=== PATIENT | male | born 1955 | race Caucasian/White ===

== ENCOUNTER 2016-10-29 09:07 | Inpatient (IN) | payer MEDICARE, OTHER ==
[~2016-10-29] VITALS: Ht 154.9 cm; Wt 68.2 kg
[~2016-10-29 09:07] MED LIST: FAMO20TA5 PO
[2016-10-29 10:50] VITALS: BP 122/61
[2016-10-29] MEDS ORDERED: CONTRAST GIVEN MC PRN (11:30)
[2016-10-29] MEDS ORDERED: IOHEXOL 240 MG/ML 50ML VIAL. PO ONE (11:30)
[2016-10-29 11:43] LABS: BASO % 1 % (0-3); EOS % 2 % (0-3); HEMATOCRIT 31.8 % (39.0-53.0); HEMOGLOBIN 10.3 g/dL (13.0-17.5); LYMPH # 0.7 x10^3/uL (1.0-4.8); LYMPH % 18 % (24-48); MEAN CORPUSCULAR HEMOGLOBIN 35 pg (25-35); MEAN CORPUSCULAR HGB CONC 32 g/dL (31-37); MEAN CORPUSCULAR VOLUME 107 fL (79-100); MONO % 16 % (0-9); NEUT % 63 % (31-73); PLATELET COUNT 136 x10^3/uL (140-400); RED BLOOD COUNT 2.97 x10^6/uL (4.30-5.70); RED CELL DISTRIBUTION WIDTH 14.1 % (11.5-14.5); WHITE BLOOD COUNT 3.8 x10^3/uL (4.0-11.0)
[2016-10-29 11:52] LABS: INR 1.2 (0.8-1.1); PROTHROMBIN TIME PATIENT 14.3 SEC (11.7-14.0)
[2016-10-29] MEDS: FENTANYL 50MCG/HR PATCH. TD SCH (12:00)
[2016-10-29 12:04] LABS: CALCIUM 8.6 mg/dL (8.5-10.1); CREATININE 5.5 mg/dL (0.7-1.3); GFR 10.7; POTASSIUM 3.8 mmol/L (3.5-5.1)
[2016-10-29 12:10] LABS: ALBUMIN 3.2 g/dL (3.4-5.0); ALBUMIN/GLOBULIN RATIO 1.2 (1.0-1.7); TOTAL BILIRUBIN 0.5 mg/dL (0.2-1.0); TOTAL PROTEIN 5.8 g/dL (6.4-8.2)
--- NOTE | 2016-10-29 12:57 | HP ---
ADMIT DATE: 10/29/2016 HISTORY OF PRESENT ILLNESS: The patient is a 61-year-old male patient, a resident at [facility], who was admitted directly on the account of recurrent bouts of nausea, vomiting, diarrhea, progressive abdominal distention and now constipation. His symptoms started about 4 days ago with recurrent bouts of nausea, vomiting as well as diarrhea. The last bowel movement was yesterday while at hemodialysis and, since yesterday, his abdomen was progressively distended, has abdominal pain, has had no bowel movement. Denied any chills, rigors or fever and, given the fact that he has multiple abdominal surgeries, the possibility of bowel obstruction is entertained. The patient was admitted directly for further evaluation and treatment. PAST MEDICAL HISTORY: Significant for hypertension, end-stage renal disease, spina bifida with paraplegia, seizure disorder, chronic pain syndrome, hyperlipidemia, hypothyroidism, iron deficiency anemia, anxiety and depression. PAST SURGICAL HISTORY: Significant for appendectomy, cholecystectomy, suprapubic catheter insertion, nephrectomy, ureterostomy and ileal conduit, incisional hernia repair. ALLERGIES: HE IS ALLERGIC TO AMOXICILLIN, GABAPENTIN, LYRICA, AND SULFA DRUGS. MEDICATIONS: He is currently on following medications: He is on Abilify 7.5 mg daily, mirtazapine 15 mg at bedtime, Nephro-Dangelo 1 tablet once a day, Nitrostat sublingual 0.4 mg every 5 minutes x 3, Norvasc 5 mg twice a day, omeprazole 20 mg orally, OxyContin extended release 12 mg, he takes 40 mg 3 times a day, PhosLo capsule 667 mg 2 capsules by mouth with meals for the phosphate binder, trazodone 50 mg at bedtime, Tylenol 650 mg every 4 hours, Zoloft 100 mg at bedtime, zolpidem tartrate 10 mg at bedtime for insomnia. He is also on calcium carbonate 1000 mg orally at bedtime and clonazepam 2 mg 1 tablet at bedtime, clonidine 0.1 mg tablet orally one time a day. He is on Cymbalta, for duloxetine, a total of 90 mg once a day, fentanyl 50 mcg per hour topically every 72 hours. He is on levothyroxine 75 mcg once a day, Lidoderm, lidocaine cream applied topically before dialysis, loperamide 2 mg by mouth every 4 hours as needed for diarrhea, MiraLax or polyethylene glycol 17 g twice a day. FAMILY HISTORY: Positive for CVA in his mother. SOCIAL HISTORY: Single, never , has no children. He used to be an ex-smoker, does not smoke, drink alcohol or use recreational drugs. REVIEW OF SYSTEMS: As per history of present illness. PHYSICAL EXAMINATION: GENERAL: On examining him, he looked pale, but no jaundice, no lymphadenopathy or thyromegaly. No jugular venous distension. No lower limb edema. VITAL SIGNS: Heart rate is 81, blood pressure was 122/61, temperature was 98.3, respiratory rate was 18 and oxygen saturation was 97% on room air. HEAD, EYES, EARS, NOSE AND THROAT: Showed normocephalic, atraumatic. NECK: Supple. HEART: Showed normal first and second heart sounds with no gallop, rub or murmur. CHEST: Clear to auscultation. No crepitation or rhonchi. ABDOMEN: Markedly distended with tenderness mostly in the left lower quadrant. There is no guarding or rigidity. No organomegaly. All hernial orifices intact. Bowel sounds normal. There are multiple scars of previous surgeries and ureterostomy with ileal conduit that is no longer draining. Bowel sounds are sluggish. NEUROLOGIC: He is awake, alert, responding appropriately. Cranial nerves intact. He moves upper extremities without difficulty, is mostly bed bound, wheelchair bound and has spina bifida cystica with paraplegia. Given the fact that he has multiple surgical operations and has tenderness in the left lower quadrant, possibility of either diverticulitis and/or bowel obstruction is entertained. I will keep the patient n.p.o. for now and will do a stat CT scan of the abdomen and pelvis. Check his lab work and consult appropriate subspecialists depending on the finding on the CT scan. WAYLON CONCEPCION MD DR: ADDIE/joe JOB#: [id number] / [id number]
[2016-10-29 13:00] VITALS: BP 122/61
--- NOTE | 2016-10-29 13:52 | RAD ---
CT of the abdomen and pelvis without contrast, 10/29/2016: History: Nausea, vomiting, abdominal distention No IV contrast was administered for this study as requested. Oral contrast material was given for GI tract opacification. No previous studies are available at this time for comparison purposes. There are minimal groundglass opacities posteriorly in both lung bases. No pleural fluid is evident. There appears to be a small hiatal hernia. There are surgical clips adjacent to the stomach at the level of the diaphragmatic hiatus. The unopacified liver is unremarkable. The gallbladder is surgically absent. No pancreatic abnormality is detected. There is a 6.7 cm low-density lesion in the medial aspect of the spleen. It demonstrates an internal CT number of 20 Hounsfield units. This is likely a cyst or old hematoma. There are surgical clips in the gallbladder fossa suggesting a previous nephrectomy. The right kidney demonstrates considerable cortical thinning there is a 2 cm cyst arising from the upper pole of the right kidney. There is no evidence of hydronephrosis. Aortoiliac calcific plaquing is present without evidence of aneurysm. No abdominal or pelvic adenopathy is seen. The bladder is collapsed and poorly defined. A structure in the right flank region apparently represents an ileal conduit. It contains fluid of higher than water density. The associated ostomy lies at the upper pelvic level just to the left of midline. The patient's nurse reports that this is nonfunctioning. The proximal small bowel loops are not dilated. There is mild distention of distal small bowel loops with gas and fluid. There are surgical sutures related to the colon in the region of the junction of the transverse colon and hepatic flexure. The colon contains a moderate amount of gas and stool extending down to the level of the rectum. No free fluid or free air is evident in the abdomen or pelvis. There is a small fascial defect in the anterior abdominal wall on the left containing only fat. There is a midline sacral defect posteriorly compatible spina bifida. There is chronic dislocation of both hips. There is a moderate thoracolumbar scoliosis. IMPRESSION: 1. Spinal bifida with chronic bilateral hip dislocations. 2. Moderate distention of the colon with gas and stool in a pattern suggesting an atonic colon. 3. Mild dilatation of distal small bowel loops. 4. Status post left nephrectomy. 5. Severely atrophic, scarred right kidney. 6. Ileal conduit containing high density fluid compatible with the history that it is nonfunctioning. 7. Minimal bibasilar groundglass pulmonary opacities may be due to inflammation or scarring. 8. Cystic splenic lesion compatible with an old hematoma or benign cyst. Abscess is less likely. 9. Small hiatal hernia. PQRS Compliance Statement: One or more of the following individualized dose reduction techniques were utilized for this examination: 1. Automated exposure control 2. Adjustment of the mA and/or kV according to patient size 3. Use of iterative reconstruction technique
[2016-10-29 15:00] VITALS: BP 105/68
[2016-10-29] MEDS: MORPHINE SULFATE 4 MG/ML DISP.SYRIN. IV PRN ×2 (16:20→20:30)
[2016-10-29 19:49] VITALS: BP 131/80
[2016-10-29] MEDS ORDERED: LEVO75TA5 PO (21:29)
[2016-10-29] MEDS ORDERED: OXYC40TA26 PO (21:29)
[2016-10-29] MEDS ORDERED: CLON2TAB2 PO (21:29)
[2016-10-29] MEDS ORDERED: NITR0.4T SL (21:29)
[2016-10-29] MEDS ORDERED: MIRT15TA3 PO (21:29)
[2016-10-29] MEDS ORDERED: LIDO30CR TP (21:29)
[2016-10-29] MEDS ORDERED: CALC650T6 PO (21:29)
[2016-10-29] MEDS ORDERED: DULO60CA6 PO (21:29)
[2016-10-29] MEDS ORDERED: LOPE2CAP3 PO (21:29)
[2016-10-29] MEDS ORDERED: FENT1PAT17 TP (21:29)
[2016-10-29] MEDS ORDERED: AMLO5TAB4 PO (21:29)
[2016-10-29] MEDS ORDERED: CLON0.1T PO (21:29)
[2016-10-29] MEDS ORDERED: POLY17PO5 PO (21:29)
[2016-10-29] MEDS ORDERED: OMEP20CA9 PO (21:29)
[2016-10-29] MEDS ORDERED: FOLI0.8T3 PO (21:29)
[2016-10-29] MEDS ORDERED: DULO30CA2 PO (21:29)
[2016-10-29] MEDS ORDERED: TRAZ50TA15 PO (21:39)
[2016-10-29] MEDS ORDERED: CALC667T PO (21:39)
[2016-10-29] MEDS ORDERED: ACET325T9 PO (21:39)
[2016-10-29] MEDS ORDERED: ZOLP10TA4 PO (21:39)
[2016-10-29] MEDS ORDERED: METO10TA81 PO (21:39)
[2016-10-29] MEDS ORDERED: SERT100T PO (21:39)
[2016-10-29] MEDS ORDERED: BISA5TAB4 PO (22:40)
[2016-10-29] MEDS ORDERED: ARIP5TAB6 PO (22:40)
[2016-10-29] MEDS: ONDANSETRON PF 4 MG/2 ML VIAL. IV PRN (23:01)
[2016-10-29 23:06] VITALS: BP 119/62
[2016-10-30] VITALS (7 sets, daily range): BP systolic 119–139; BP diastolic 67–87
[2016-10-30] MEDS: MORPHINE SULFATE 4 MG/ML DISP.SYRIN. IV PRN ×5 (00:45→19:40)
[2016-10-30] MEDS ORDERED: PANTOPRAZOLE IV PUSH 40 MG VIAL. IVP ONE (03:00)
[2016-10-30] MEDS ORDERED: IV NORMAL SALINE 1000ML BAG 1,000 ML IV PRN (08:40)
[2016-10-30] MEDS ORDERED: ACETAMINOPHEN 500 MG TABLET PO PRN (08:45)
[2016-10-30] MEDS ORDERED: ALBUMIN HUMAN 25% 200 ML IV PRN (08:45)
[2016-10-30] MEDS ORDERED: DIALYSIS PATIENT. MC PRN (08:45)
[2016-10-30] MEDS ORDERED: DIPHENHYDRAMINE 50 MG/ML VIAL IV PRN ×2 (08:45)
[2016-10-30] MEDS ORDERED: BISACODYL 10 MG SUPP.RECT PR PRN (13:45)
[2016-10-30] MEDS ORDERED: METHYLNALTREXONE 12 MG/0.6 ML VIAL. SQ ONE ×2 (14:30→17:15)
--- NOTE | 2016-10-30 15:59 | PDOC4 ---
PROCEDURE Procedure RENAL DIALYSIS / EDUARDO HD done. F180 / HCO3 / K per protocol Qb 450 ml/min Qd 600 ml/min UF to dry weight. 3 kg UF attempted. Well tolerated. No complications. CPM. VSS. Labs reviewed. Supportive care. Mario Clark M.D. MARIO CLARK MD Oct 30, 2016 15:59
[2016-10-30] MEDS ORDERED: ONDANSETRON ODT 4 MG TAB.RAPDIS PO PRN (16:00)
[2016-10-30] MEDS ORDERED: ZOLPIDEM 5 MG TABLET. PO PRN (16:45)
[2016-10-30] MEDS: OXYCODONE IR 5 MG TABLET. PO PRN (19:40)
[2016-10-30] MEDS: ZOLPIDEM 5 MG TABLET. PO SCH (20:48)
[2016-10-30] MEDS: traZODone 50 MG TABLET. PO SCH (20:48)
--- NOTE | 2016-10-30 23:03 | PDOC2 ---
CONSULT Date of Consult Date of Consult DATE: 10/30/16 TIME: 23:03 Current Problem List Problem List Problems Medical Problems: (1) Ascites Status: Acute (2) ESRD (end stage renal disease) on dialysis Status: Acute Current Medications Current Medications Current Medications Morphine Sulfate 4 mg PRN Q4HRS PRN IV PAIN Last administered on 10/30/16 19: 40; Start 10/29/16 at 11:15 Fentanyl (Duragesic 50mcg/ Hr Patch) 1 patch Q3DAYS TD ; Start 10/29/16 at 12:00 Ondansetron HCl (Zofran) 4 mg PRN Q4HRS PRN IV NAUSEA/VOMITING Last administered on 10/29/16 23:01; Start 10/29/16 at 11:15 Iohexol (Omnipaque 240 Mg/ml) 40 ml 1X ONCE PO Last administered on 10/29/16 11:30; Start 10/29/16 at 11:30; Stop 10/29/16 at 11:31; Status DC Info (Do NOT chart on this entry -- for MONITORING) 1 each PRN DAILY PRN MC SEE COMMENTS; Start 10/29/16 at 11:30; Stop 10/31/16 at 11:29 Pantoprazole Sodium (Protonix Vial) 40 mg DAILYAC IVP ; Start 10/31/16 at 07:30 Pantoprazole Sodium 40 mg 40 mg 1X ONCE IVP Last administered on 10/30/16 03: 02; Start 10/30/16 at 03:00; Stop 10/30/16 at 03:01; Status DC Sodium Chloride 1,000 ml @ 1,000 mls/hr Q1H PRN IV hypotension; Start 10/30/16 at 08:40; Stop 10/30/16 at 14:39; Status DC Albumin Human (Albuminar) 200 ml @ 200 mls/hr 1X PRN PRN IV Hypotension; Start 10/30/16 at 08:45; Stop 10/30/16 at 14:44; Status DC Acetaminophen (Tylenol) 500 mg 1X PRN PRN PO MILD PAIN / TEMP Last administered on 10/30/16 09:59; Start 10/30/16 at 08:45; Stop 10/30/16 at 19:00 ; Status DC Diphenhydramine HCl (Benadryl) 25 mg 1X PRN PRN IV ITCHING; Start 10/30/16 at 08:45; Stop 10/30/16 at 19:00; Status DC Diphenhydramine HCl (Benadryl) 25 mg 1X PRN PRN IV ITCHING; Start 10/30/16 at 08:45; Stop 10/30/16 at 19:00; Status DC Info (PHARMACY MONITORING -- do not chart) 1 each PRN DAILY PRN MC SEE COMMENTS ; Start 10/30/16 at 08:45 Bisacodyl (Dulcolax Supp) 10 mg PRN DAILY PRN MI CONSTIPATION; Start 10/30/16 at 13:45 Methylnaltrexone Pandora (Relistor) 12 mg 1X ONCE SQ Last administered on 10/30 14:21; Start 10/30/16 at 14:30; Stop 10/30/16 at 14:31; Status DC Ondansetron HCl (Zofran Odt) 4 mg PRN Q4HRS PRN PO NAUSEA/VOMITING; Start 10/30 at 16:00 Oxycodone HCl (Roxicodone) 5 mg PRN Q4HRS PRN PO PAIN Last administered on 10/30 19:40; Start 10/30/16 at 16:00 Trazodone HCl (Desyrel) 50 mg QHS PO Last administered on 10/30/16 20:48; Start 10/30/16 at 21:00 Zolpidem Tartrate (Ambien) 5 mg QHS PO Last administered on 10/30/16 20:48; Start 10/30/16 at 21:00 Zolpidem Tartrate (Ambien) 5 mg PRN QHS PRN PO REPEAT DOSE FOR CONT INSOMNIA; Start 10/30/16 at 16:45 Methylnaltrexone Pandora (Relistor) 12 mg 1X ONCE SQ ; Start 10/30/16 at 17:15 ; Stop 10/30/16 at 17:15; Status DC Active Scripts Active Famotidine 20 Mg Tablet 20 Mg PO BID 14 Days Reported Bisacodyl 5 Mg Tablet.dr 5 Mg PO Q12HR PRN Abilify (Aripiprazole) 5 Mg Tablet 7.5 Mg PO DAILY Zolpidem Tartrate 10 Mg Tablet 1 Tab PO QHS Zoloft (Sertraline Hcl) 100 Mg Tablet 2 Tab PO DAILY Tylenol (Acetaminophen) 325 Mg Tablet 650 Mg PO Q6HRS Trazodone Hcl 50 Mg Tablet 1 Tab PO QHS Reglan (Metoclopramide Hcl) 10 Mg Tablet 5 Mg PO TID Calcium Acetate 667 Mg Tablet 667 Mg PO TIDWMEALS Oxycodone HCl ER (Oxycodone HCl) 40 Mg Tab.er.12h 40 Mg PO TID Omeprazole 20 Mg Capsule.dr 1 Cap PO DAILY Norvasc (Amlodipine Besylate) 5 Mg Tablet 1 Tab PO BID Nitrostat (Nitroglycerin) 0.4 Mg Tab.subl 0.4 Mg SL PRN Q10MIN PRN Nephro-Dangelo Tablet (Folic Acid/Vitamin B Comp W-C) 0.8 Mg Tablet 1 Tab PO DAILY Mirtazapine 15 Mg Tablet 1 Tab PO QHS Miralax (Polyethylene Glycol 3350) 17 Gm Powd.pack 1 Packet PO BID Anti-Diarrheal (Loperamide Hcl) 2 Mg Capsule 2 Mg PO Q4HRS Lidocaine-Prilocaine Cream (Lidocaine/Prilocaine) 30 Gm Cream..g. 1 Adrienne TP UD Levothyroxine Sodium 75 Mcg Tablet 1 Tab PO DAILY FENTANYL 50mcg/hr (Fentanyl) 1 Each Patch.td72 1 Patch TP Q3DAYS Cymbalta (Duloxetine Hcl) 60 Mg Capsule.dr 60 Mg PO DAILY Cymbalta (Duloxetine Hcl) 30 Mg Capsule.dr 1 Cap PO DAILY Clonidine Hcl 0.1 Mg Tablet 0.1 Mg PO DAILY Clonazepam 2 Mg Tablet 1 Tab PO QHS Calcium Carbonate 650 Mg Tablet 1,000 Mg PO QHS Allergies Allergies: Coded Allergies: Sulfa (Sulfonamide Antibiotics) (Verified Allergy, Intermediate, 03/08/16) amoxicillin (Verified Allergy, Intermediate, 03/08/16) gabapentin (Verified Allergy, Intermediate, 03/08/16) pregabalin (Verified Allergy, Intermediate, 03/08/16) Vitals VITALS Vital Signs Date Time Temp Pulse Resp B/P Pulse Ox O2 Delivery O2 Flow Rate FiO2 10/30/16 20:40 98 Room Air 10/30/16 19:49 98.4 80 20 139/84 98.4 Labs Labs Laboratory Tests Test 10/29/16 11:13 10/29/16 11:20 10/29/16 14:00 Glucose (Fingerstick) 84mg/dL (70-99) White Blood Count 3.8x10^3/uL (4.0-11.0) Red Blood Count 2.97x10^6/uL (4.30-5.70) Hemoglobin 10.3g/dL (13.0-17.5) Hematocrit 31.8% (39.0-53.0) Mean Corpuscular Volume 107fL (79-100) Mean Corpuscular Hemoglobin 35pg (25-35) Mean Corpuscular Hemoglobin Concent 32g/dL (31-37) Red Cell Distribution Width 14.1% (11.5-14.5) Platelet Count 136x10^3/uL (140-400) Neutrophils (%) (Auto) 63% (31-73) Lymphocytes (%) (Auto) 18% (24-48) Monocytes (%) (Auto) 16% (0-9) Eosinophils (%) (Auto) 2% (0-3) Basophils (%) (Auto) 1% (0-3) Neutrophils # (Auto) 2.4x10^3uL (1.8-7.7) Lymphocytes # (Auto) 0.7x10^3/uL (1.0-4.8) Monocytes # (Auto) 0.6x10^3/uL (0.0-1.1) Eosinophils # (Auto) 0.1x10^3/uL (0.0-0.7) Basophils # (Auto) 0.0x10^3/uL (0.0-0.2) Prothrombin Time 14.3SEC (11.7-14.0) Prothromb Time International Ratio 1.2 (0.8-1.1) Activated Partial Thromboplast Time 46SEC (24-38) Sodium Level 145mmol/L (136-145) Potassium Level 3.8mmol/L (3.5-5.1) Chloride Level 106mmol/L (98-107) Carbon Dioxide Level 26mmol/L (21-32) Anion Gap 13 (6-14) Blood Urea Nitrogen 36mg/dL (8-26) Creatinine 5.5mg/dL (0.7-1.3) Estimated GFR (Cockcroft-Gault) 10.7 BUN/Creatinine Ratio 7 (6-20) Glucose Level 90mg/dL (70-99) Calcium Level 8.6mg/dL (8.5-10.1) Total Bilirubin 0.5mg/dL (0.2-1.0) Aspartate Amino Transf (AST/SGOT) 8U/L (15-37) Alanine Aminotransferase (ALT/SGPT) 14U/L (16-63) Alkaline Phosphatase 59U/L (46-116) Total Protein 5.8g/dL (6.4-8.2) Albumin 3.2g/dL (3.4-5.0) Albumin/Globulin Ratio 1.2 (1.0-1.7) Nasal Screen MRSA (PCR) Negative (Negative) Assessment/Plan Assessment/Plan RENAL CONSULT/ EDUARDO Ruelas. Thank you. MARIO CLARK MD Oct 30, 2016 23:03
--- NOTE | 2016-10-31 01:03 | PN ---
DATE: 10/30/2016 SUBJECTIVE: Mr. Del Cid is resting, slightly propped up in bed and in no apparent distress, continued to have marked abdominal distention, but denied any nausea, vomiting, or diarrhea. A CT scan yesterday showed that he has a moderate distention of the colon with gas and stool suggestive atonic colon, also mild dilatation of the distal small bowel loops, has multiple other findings including spina bifida with chronic bilateral hip dislocation, status post left nephrectomy, severe atrophic scar, right kidney. He has a ileal conduit that is nonfunctioning. The patient is on huge amount of pain medication. He is on a fentanyl patch 50 mcg per hour topically q. 72 hours. He is on oxycodone extended release 40 mg 3 times a day and I am sure that this is probably induced constipation versus adynamic ileus. He is now on a clear liquid diet. I did consult the intrusion analyst apparently the consult was never GI team as they were being consulted yesterday. He has had his hemodialysis this morning. PHYSICAL EXAMINATION: GENERAL: When I examined him this afternoon, he looked somewhat pale, jaundiced and with some thyromegaly. No jugular venous distention. No limb edema. VITAL SIGNS: His heart rate was 68, blood pressure was 128/77, temperature was 98.3, respiratory rate was 20, and oxygen saturation was 97% on room air. HEAD, EYES, EARS, NOSE, AND THROAT: Showed head is normocephalic, atraumatic. NECK: Supple. HEART: Showed normal first and second heart sounds with no gallop, rub or murmur. CHEST: Clear to auscultation. No crepitation or rhonchi. ABDOMEN: Definitely markedly distended with some tenderness mostly in the left lower quadrant. There is no guarding or rigidity. No organomegaly. All hernial orifices are intact. Bowel sounds normal. NEUROLOGIC: He is awake, alert, responding appropriately. Cranial nerves intact, moves upper extremities without difficulty, has paraplegia secondary to spina bifida with marked muscle wasting and fixed flexed contraction of both lower extremities. His intake over the last 24 hours was 600, no output. He is completely anuric. LABORATORY DATA: His lab work on admission showed a white cell count of 3800, hemoglobin 10.3, hematocrit 31.8, MCV was 107 and platelet count of 136,000. His chemistry showed a serum sodium 145, potassium 3.8, chloride 106, bicarbonate 26, anion gap of 13, BUN 36, creatinine 5.5, and estimated GFR was 7.7. His glucose was 90, calcium was 8.6. Total bilirubin, AST, ALT, alkaline phosphatase are normal. Total protein was 5.8, albumin 3.2. His prothrombin time was 14.3, INR 1.2, APTT was 46. His nasal screen for MRSA by PCR was negative. ASSESSMENT: So in summary, this is a 61-year-old male patient with spina bifida cystica with paraplegia and neurogenic bladder, for which he has had an ileal conduit and ureterostomy that is nonfunctioning, has end-stage renal failure and hemodialysis on Tuesday, , Tuesday, seizure disorder, hyperlipidemia, hypothyroidism, iron deficiency anemia, anxiety and depression. He has also chronic pain syndrome with multiple narcotics. My plan is to arrange for him to have a PICC line, consult the intrusion analyst, start him on Dulcolax suppository and await the recommendation by the intrusion analyst. WAYLON CONCEPCION MD DR: ADDIE/joe JOB#: [id number] / [id number]
[2016-10-31] MEDS: MORPHINE SULFATE 4 MG/ML DISP.SYRIN. IV PRN ×5 (01:58→21:50)
[2016-10-31 03:59] VITALS: BP 120/70
[2016-10-31 04:45] LABS: HEMATOCRIT 32.7 % (39.0-53.0); HEMOGLOBIN 10.6 g/dL (13.0-17.5); RED BLOOD COUNT 3.05 x10^6/uL (4.30-5.70); RED CELL DISTRIBUTION WIDTH 13.7 % (11.5-14.5); WHITE BLOOD COUNT 3.8 x10^3/uL (4.0-11.0)
[2016-10-31 05:21] LABS: ALBUMIN 3.2 g/dL (3.4-5.0); ALBUMIN/GLOBULIN RATIO 1.2 (1.0-1.7); CALCIUM 8.3 mg/dL (8.5-10.1); CREATININE 4.6 mg/dL (0.7-1.3); GFR 13.1; POTASSIUM 3.5 mmol/L (3.5-5.1); TOTAL BILIRUBIN 0.6 mg/dL (0.2-1.0); TOTAL PROTEIN 5.8 g/dL (6.4-8.2)
[2016-10-31 07:00] VITALS: BP 115/53
[2016-10-31] MEDS: PANTOPRAZOLE IV PUSH 40 MG VIAL. IVP SCH (08:29)
[2016-10-31 10:44] VITALS: BP 127/67
--- NOTE | 2016-10-31 12:18 | PDOC ---
GI PROGRESS NOTES Date Date/Time DATE: 10/31/16 TIME: 12:14 Subjective Subjective Constipation/colonic ileus- consult dictated yesterday given relistor and enema- had several BM- feels better Objective Vitals Vital Signs Date Time Temp Pulse Resp B/P Pulse Ox O2 Delivery O2 Flow Rate FiO2 10/31/16 10:44 98.2 67 18 127/67 96 Room Air 98.2 10/31/16 09:00 Room Air 10/31/16 08:29 Room Air 10/31/16 08:05 Room Air 10/31/16 07:00 97.8 84 18 115/53 96 Room Air 97.8 10/31/16 03:59 98.1 65 18 120/70 100 Room Air 98.1 10/31/16 03:07 18 10/31/16 01:58 20 Room Air 10/30/16 23:50 98.1 63 18 124/72 99 Room Air 98.1 10/30/16 20:40 98 Room Air 10/30/16 20:10 Room Air 10/30/16 20:10 98 10/30/16 19:49 98.4 80 20 139/84 98 Room Air 98.4 10/30/16 19:40 Room Air 10/30/16 19:40 16 Room Air 10/30/16 14:57 97.3 79 20 121/87 97 97.3 10/30/16 12:30 98.3 68 20 128/77 97 Room Air 98.3 Labs Labs Laboratory Tests Test 10/31/16 04:30 White Blood Count 3.8x10^3/uL (4.0-11.0) Red Blood Count 3.05x10^6/uL (4.30-5.70) Hemoglobin 10.6g/dL (13.0-17.5) Hematocrit 32.7% (39.0-53.0) Mean Corpuscular Volume 107fL (79-100) Mean Corpuscular Hemoglobin 35pg (25-35) Mean Corpuscular Hemoglobin Concent 32g/dL (31-37) Red Cell Distribution Width 13.7% (11.5-14.5) Platelet Count 137x10^3/uL (140-400) Sodium Level 144mmol/L (136-145) Potassium Level 3.5mmol/L (3.5-5.1) Chloride Level 104mmol/L (98-107) Carbon Dioxide Level 27mmol/L (21-32) Anion Gap 13 (6-14) Blood Urea Nitrogen 25mg/dL (8-26) Creatinine 4.6mg/dL (0.7-1.3) Estimated GFR (Cockcroft-Gault) 13.1 BUN/Creatinine Ratio 5 (6-20) Glucose Level 77mg/dL (70-99) Calcium Level 8.3mg/dL (8.5-10.1) Total Bilirubin 0.6mg/dL (0.2-1.0) Aspartate Amino Transf (AST/SGOT) 11U/L (15-37) Alanine Aminotransferase (ALT/SGPT) 16U/L (16-63) Alkaline Phosphatase 58U/L (46-116) Total Protein 5.8g/dL (6.4-8.2) Albumin 3.2g/dL (3.4-5.0) Albumin/Globulin Ratio 1.2 (1.0-1.7) Thyroid Stimulating Hormone (TSH) 2.445uIU/mL (0.358-3.74) Physical Exam Physical Exam VSS chest- clear abd- still distended but soft, NON tender normal bowel sounds Assessment Assessment Chronic colonic inertia- in part from narcotics and paraplegia- his acute symptoms of n/v and diarrhea are related- Clinically improved after several bowel movements- I will advance diet recommend Movantik 25 mg PO (or Relistor) if available as output and restart enema program if he does not have BM regularly Problems: ROSENDO YOUNG MD Oct 31, 2016 12:18
[2016-10-31] MEDS: OXYCODONE IR 5 MG TABLET. PO PRN ×2 (12:21→21:49)
[2016-10-31] MEDS: ONDANSETRON PF 4 MG/2 ML VIAL. IV PRN (13:19)
[2016-10-31] MEDS ORDERED: METHYLNALTREXONE 12 MG/0.6 ML VIAL. SQ ONE (13:30)
[2016-10-31 14:48] VITALS: BP 128/65
--- NOTE | 2016-10-31 16:51 | PDOC ---
Provider Note Provider Note RENAL F/U : EDUARDO No new issues VSS Afebilre. Exam stable. Non labored resp RRR Alert to baseline. ESRD HTN w CKD NVD ANEMIA CPM. Mario clark M.D. MARIO CLARK MD Oct 31, 2016 16:51
--- NOTE | 2016-10-31 17:08 | CONS ---
DATE OF CONSULTATION: 10/30/2016 CHIEF COMPLAINT: Nausea, vomiting, diarrhea, long history of constipation and abdominal pain. HISTORY OF PRESENT ILLNESS: This is a 61-year-old gentleman with numerous medical problems. He now is a resident at [facility]. He has end-stage kidney disease on dialysis and has a history, he describes of alternating constipation and diarrhea, but usually does not have significant vomiting, just sometimes nausea. He has been eating reasonably well up until recently, but the last few days, describes nausea, vomiting and diarrhea. He noticed his abdomen was somewhat distended. He has had abdominal pain, although this is not a new process for him. He has had a number, he says over 30 operations on his abdomen. He had some surgery as a child for what sounds like urinary obstruction, had an ostomy placed and then eventually had an ileal conduit. There are a number surgical scars present in his abdomen including those for appendectomy, cholecystectomy, previous suprapubic catheter insertion and hernia repairs. He does not have a history of significant bowel obstruction in the past, but certainly has a chronic history of bowel symptoms. He also has a history of heartburn, nausea that is recurrent and has been evaluated in the past. We do not have those records. He presents now with a CT scan showing retained stool and gas in the colon, numerous surgeries, but no obvious bowel obstruction. PAST MEDICAL HISTORY: Hypertension, end-stage renal disease, spina bifida with paraplegia, previous seizure disorder, chronic pain, hyperlipidemia, hypothyroidism and anemia, anxiety depression. PAST SURGICAL HISTORY: Appendectomy, cholecystectomy, previous nephrectomy, ileal conduit in the past, suprapubic catheter insertion site, ureterostomy and incisional hernia repair were all reported. ALLERGIES: AMOXICILLIN, GABAPENTIN, LYRICA AND SULFA. MEDICATIONS: Numerous. Include fentanyl, Cymbalta, see the list for further details. He takes MiraLax and Dulcolax for his bowels. He used to do enemas, but is not on any quite some time. FAMILY HISTORY: Positive for stroke in his mother. SOCIAL HISTORY: He is an ex-smoker, does not smoke or drink. He is not . REVIEW OF SYSTEMS: He has had abdominal pain, distention, nausea, vomiting, diarrhea this week. No fever or chills. HEENT: No headache. He does have decreased vision and hearing that are chronic. PULMONARY: No cough or hemoptysis. CARDIOVASCULAR: No chest pain. GENITOURINARY: He has no urinary output, he has a suprapubic catheter site and he is on dialysis. SKIN: No rashes or pruritus. PHYSICAL EXAMINATION: GENERAL: He is awake and alert. VITAL SIGNS: Afebrile, blood pressure 119/67, pulse 71, respirations 20. He is anicteric. CHEST: Clear. HEART: Regular rate and rhythm. ABDOMEN: Multiple scars are noted. He has a suprapubic catheter site. He has mild distention and minimal tenderness without rebound, no masses appreciated. RECTAL: Deferred. EXTREMITIES: No cyanosis or clubbing. He has paraplegia from spina bifida. LABORATORY DATA: Hemoglobin is 10.3, white blood cell count is 3800, platelet count 138,000. Electrolytes are normal. BUN 36, creatinine 5.5. Liver function studies are normal. INR 1.2. CT scan of the abdomen and pelvis reveals previous cholecystectomy. There is a cyst in the spleen. There is a nephrectomy. There is atherosclerotic disease. There is a previous ileal conduit site noted, proximal small bowel is normal. There is mild distention of the distal small bowel. There is a large amount of retained stool and gas in the colon. There are some clips noted in the mid descending colon that is not consistent with this patient's history, not sure of the surgery that was related to those clips, but there is no obstruction at that side. ASSESSMENT: 1. Abdominal distention with altered bowel pattern including nausea, vomiting, diarrhea this week. He has a chronic history of constipation and his CAT scans seems to point more towards chronic retained stool and colon. Colon is filled with stool and gas, it does with diarrhea illness. The diarrhea is probably overflow, could be related to an acute illness. He is distended, but not obstructed at this point. He is certainly at risk for obstruction based on his numerous surgeries, but at this point, does not appear to be the case. He is tolerating clear liquid diet, is not vomiting, but has had nausea, vomiting this week as mentioned above. He does have an underlying history of GERD, which may be contributing to some of his nausea chronically. PLAN: 1. We will reinstitute enema therapy today along with Relistor therapy for his chronic constipation. It is likely he would benefit from more aggressive long-term treatment program for his colonic inertia with Movantik or similar product rather than just using Dulcolax and MiraLax alone. I appreciate the opportunity and we will follow with you. ROSENDO YOUNG MD DR: AMANDA/joe JOB#: [id number] / [id number]
[2016-10-31 19:00] VITALS: BP 137/89
[2016-10-31] MEDS: traZODone 50 MG TABLET. PO SCH (21:49)
[2016-10-31] MEDS: ZOLPIDEM 5 MG TABLET. PO SCH (21:49)
[2016-10-31 23:00] VITALS: BP 133/70
--- NOTE | 2016-11-01 00:27 | PN ---
DATE: 10/31/2016 SUBJECTIVE: The patient is resting, slightly propped up in bed, in no apparent distress. He has had no further episodes of nausea, vomiting. He has had multiple loose bowel movements; however, his abdomen is still distended. He was seen by the matchbook assembler who recommended Relistor or Movantik for opioid-induced constipation. PHYSICAL EXAMINATION: GENERAL: When I examined him this afternoon, he looked well and was clearly in no apparent respiratory distress, pale. No jaundice, cyanosis, thyromegaly. No jugular venous distention. No limb edema. VITAL SIGNS: His heart rate was 67, blood pressure 127/67, temperature was 98.2, respiratory rate was 18 and oxygen saturation was 96%. HEAD, EYES, EARS, NOSE AND THROAT: Showed normocephalic, atraumatic. NECK: Supple. HEART: Showed normal first and second sounds. No gallop, rub or murmur. CHEST: Clear to auscultation. No crepitation or rhonchi. ABDOMEN: Continued to be distended, soft, nontender. No guarding or rigidity. No organomegaly. All hernial orifices intact. Bowel sounds normal. NEUROLOGIC: He is hard of hearing and visually impaired. Otherwise, all other cranial nerves are intact. He moves upper extremities without difficulty, has paraplegia secondary to spina bifida cystica. He is mostly bedbound, chair bound, marked muscle wasting and flexion contracture of both lower extremities. He is completely anuric and hemodialysis dependent. His intake was 500, no output was recorded. LABORATORY DATA: As of this morning, his white cell count is 3800, hemoglobin 11, hematocrit 33, MCV 107 and platelet count 137,000. His chemistry showed a serum sodium 144, potassium 3.5, chloride 104, bicarbonate 27, anion gap of 13, BUN 25, creatinine 4.6, estimated GFR was 13 mL per minute. His glucose was 77, calcium was 8.3. Total bilirubin, AST, ALT, alkaline phosphatase were normal. Total protein was 5.8, albumin 3.2. TSH was normal at 2.44. ASSESSMENT: 1. Spina bifida cystica with paraplegia and neurogenic bladder for which he has an ileal conduit ureterostomy that is nonfunctioning. 2. End-stage renal failure on hemodialysis Tuesday, and Tuesday. 3. Seizure disorder. 4. Hyperlipidemia. 5. Hypothyroidism, however, is both clinically and biochemically euthyroid. 6. Iron deficiency anemia. 7. Anxiety and depression. 8. Chronic pain syndrome, on multiple narcotics. 9. 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 PLAN: My plan is to start him on Movantik and decide on further management according to his response. WAYLON CONCEPCION MD DR: ADDIE/joe JOB#: [id number] / [id number]
[2016-11-01 03:00] VITALS: BP 129/70
--- NOTE | 2016-11-01 03:30 | CONS ---
DATE OF CONSULTATION: REASON FOR CONSULTATION: End-stage renal disease, need for dialysis. HISTORY OF PRESENT ILLNESS: The patient is a 61-year-old gentleman. A resident of [facility]. Admitted directly with nausea, vomiting, diarrhea, abdominal pain and distention. Some constipation also reported. Low-grade fever. Not eating well. Just not doing the best. We were requested to follow for ____ dialysis needs. No report of blood in the bowels or urine. No vomiting or blood. No other related complaints. PAST MEDICAL HISTORY: Significant for: 1. Hypertension. 2. ESRD secondary to hypertensive nephrosclerosis. 3. Spina bifida with paraplegia. 4. Seizure disorder. 5. Chronic pain syndrome. 6. Hyperlipidemia and hypothyroidism. 7. Anxiety and depression. 8. Anemia of chronic disease including renal failure. PAST SURGICAL HISTORY: 1. Appendectomy. 2. Cholecystectomy. 3. Suprapubic catheter insertion. 4. Nephrectomy, right-sided. 5. Ureterostomy and ileal conduit. 6. Dialysis access placement. 7. Incisional hernia repair. REVIEW OF SYSTEMS: As best could be obtained as above. ALLERGIES AND MEDICATIONS: Reviewed. FAMILY HISTORY: CVA in the mother, but nobody with reported dialysis. SOCIAL HISTORY: Single, never , no children. Ex-smoker, we do not have any further details about the extent and duration. No alcohol or recreational drugs. PHYSICAL EXAMINATION: GENERAL: Middle-aged gentleman, in no distress. NECK: Supple. LUNGS: Decreased at the bases. No wheezing, nonlabored. CARDIOVASCULAR: Regular rate and rhythm. ABDOMEN: Soft. EXTREMITIES: Decreased muscle mass, trace edema. LABORATORY DATA: Reviewed. IMPRESSION: 1. ESRD. 2. Nausea, vomiting, diarrhea. 3. Hypertension with CKD. 4. Anemia of chronic disease. PLAN: At this stage, we will provide dialysis support. Follow labs. No other changes in treatment plan from my perspective. Thank you very much for the consultation. I appreciate the referral. We will follow. MARIO CLARK MD DR: SEAN/joe JOB#: [id number] / [id number]
[2016-11-01] MEDS: OXYCODONE IR 5 MG TABLET. PO PRN ×3 (05:29→17:04)
[2016-11-01] MEDS: MORPHINE SULFATE 4 MG/ML DISP.SYRIN. IV PRN ×4 (05:29→20:21)
[2016-11-01] MEDS: PANTOPRAZOLE IV PUSH 40 MG VIAL. IVP SCH (05:29)
[2016-11-01 07:00] VITALS: BP 150/85
[2016-11-01] MEDS: FENTANYL 50MCG/HR PATCH. TD SCH (08:13)
[2016-11-01] MEDS: LUBIPROSTONE 8 MCG CAPSULE PO SCH ×2 (08:13→17:04)
[2016-11-01] MEDS: ONDANSETRON PF 4 MG/2 ML VIAL. IV PRN (09:33)
[2016-11-01 10:59] VITALS: BP 146/74
--- NOTE | 2016-11-01 11:43 | PDOC ---
Renal-Progress Notes Subjective Notes Notes NONE History of Present Illness Hx of present illness STABLE Vitals Vitals Vital Signs Date Time Temp Pulse Resp B/P Pulse Ox O2 Delivery O2 Flow Rate FiO2 11/01/16 10:59 97.9 69 18 146/74 95 Room Air 97.9 Weight Weight [ ] I.O. Intake and Output Intake and Output 11/01/16 07:00 Intake Total 1060 ml Output Total 0 ml Balance 1060 ml Intake Oral 1060 ml Output Urine Total 0 ml Review of Systems Constitutional: yes: no symptom reported Physical Exam General Appearance: no apparent distress Skin: warm Respiratory: bilateral CTA Heart: S1S2, no thrills Abdomen: soft, bowel sounds present Extremities: pulses present, atrophy Neurology: alert Assessment Assessment IMP CONSTIPATION ANEMIA ESRD PLAN HD TOMORROW GI EVAL AND TX WILL FOLLOW KELLY CALHOUN MD Nov 01, 2016 11:43
[2016-11-01 12:34] LABS: BASO % 0 % (0-3); EOS % 1 % (0-3); HEMATOCRIT 33.9 % (39.0-53.0); HEMOGLOBIN 11.2 g/dL (13.0-17.5); LYMPH # 0.7 x10^3/uL (1.0-4.8); LYMPH % 11 % (24-48); MEAN CORPUSCULAR HEMOGLOBIN 35 pg (25-35); MEAN CORPUSCULAR HGB CONC 33 g/dL (31-37); MEAN CORPUSCULAR VOLUME 106 fL (79-100); MONO % 8 % (0-9); NEUT % 80 % (31-73); PLATELET COUNT 139 x10^3/uL (140-400); WHITE BLOOD COUNT 6.8 x10^3/uL (4.0-11.0)
--- NOTE | 2016-11-01 12:35 | PDOC2 ---
CONSULT Date of Consult Date of Consult DATE: 11/01/16 TIME: 12:23 Reason for Consult Reason for Consult: sbo Referring Physician Referring Physician: Dr Luo Identification/Chief Complaint Chief Complaint abdominal pain Source Source: Chart review, Patient History of Present Illness Reason for Visit: Admitted for worsening abdominal pain, nausea, vomiting, and diarrhea.. He reports stools have been diarrhea since Tuesday. Does have chronic abdominal pain. Concerned the distention is worsening, although he is eating a full renal tray for lunch. Has had multiple abdominal surgeries related to spina bifda and bladder (ileal conduit), appendectomy, cholecystectomy, hernia repair, suprapubic catheter. Seems to have several chronic medical problems Past Medical History Past Medical History Hypertension, end-stage renal disease, spina bifida with paraplegia, previous seizure disorder, chronic pain, hyperlipidemia,hypothyroidism and anemia, anxiety depression. Past Surgical History Past Surgical History Appendectomy, cholecystectomy, previous nephrectomy,ileal conduit in the past, suprapubic catheter insertion site, ureterostomy and incisional hernia repair Family History Family History: Family History Unknown Social History No ALCOHOL: rare Drugs: Marijuana Lives: Senior Living Current Problem List Problem List Problems Medical Problems: (1) Ascites Status: Acute (2) ESRD (end stage renal disease) on dialysis Status: Acute Current Medications Current Medications Current Medications Morphine Sulfate 4 mg PRN Q4HRS PRN IV PAIN Last administered on 11/01/16 09: 33; Start 10/29/16 at 11:15 Fentanyl (Duragesic 50mcg/ Hr Patch) 1 patch Q3DAYS TD Last administered on 08:13; Start 10/29/16 at 12:00 Ondansetron HCl (Zofran) 4 mg PRN Q4HRS PRN IV NAUSEA/VOMITING Last administered on 11/01/16 09:33; Start 10/29/16 at 11:15 Iohexol (Omnipaque 240 Mg/ml) 40 ml 1X ONCE PO Last administered on 10/29/16 11:30; Start 10/29/16 at 11:30; Stop 10/29/16 at 11:31; Status DC Info (Do NOT chart on this entry -- for MONITORING) 1 each PRN DAILY PRN MC SEE COMMENTS; Start 10/29/16 at 11:30; Stop 10/31/16 at 11:29; Status DC Pantoprazole Sodium (Protonix Vial) 40 mg DAILYAC IVP Last administered on 11/01 05:29; Start 10/31/16 at 07:30 Pantoprazole Sodium 40 mg 40 mg 1X ONCE IVP Last administered on 10/30/16 03: 02; Start 10/30/16 at 03:00; Stop 10/30/16 at 03:01; Status DC Sodium Chloride 1,000 ml @ 1,000 mls/hr Q1H PRN IV hypotension; Start 10/30/16 at 08:40; Stop 10/30/16 at 14:39; Status DC Albumin Human (Albuminar) 200 ml @ 200 mls/hr 1X PRN PRN IV Hypotension; Start 10/30/16 at 08:45; Stop 10/30/16 at 14:44; Status DC Acetaminophen (Tylenol) 500 mg 1X PRN PRN PO MILD PAIN / TEMP Last administered on 10/30/16 09:59; Start 10/30/16 at 08:45; Stop 10/30/16 at 19:00 ; Status DC Diphenhydramine HCl (Benadryl) 25 mg 1X PRN PRN IV ITCHING; Start 10/30/16 at 08:45; Stop 10/30/16 at 19:00; Status DC Diphenhydramine HCl (Benadryl) 25 mg 1X PRN PRN IV ITCHING; Start 10/30/16 at 08:45; Stop 10/30/16 at 19:00; Status DC Info (PHARMACY MONITORING -- do not chart) 1 each PRN DAILY PRN MC SEE COMMENTS ; Start 10/30/16 at 08:45 Bisacodyl (Dulcolax Supp) 10 mg PRN DAILY PRN MO CONSTIPATION; Start 10/30/16 at 13:45 Methylnaltrexone Coward (Relistor) 12 mg 1X ONCE SQ Last administered on 10/30 14:21; Start 10/30/16 at 14:30; Stop 10/30/16 at 14:31; Status DC Ondansetron HCl (Zofran Odt) 4 mg PRN Q4HRS PRN PO NAUSEA/VOMITING; Start 10/30 at 16:00 Oxycodone HCl (Roxicodone) 5 mg PRN Q4HRS PRN PO PAIN Last administered on 11/01 09:32; Start 10/30/16 at 16:00 Trazodone HCl (Desyrel) 50 mg QHS PO Last administered on 10/31/16 21:49; Start 10/30/16 at 21:00 Zolpidem Tartrate (Ambien) 5 mg QHS PO Last administered on 10/31/16 21:49; Start 10/30/16 at 21:00 Zolpidem Tartrate (Ambien) 5 mg PRN QHS PRN PO REPEAT DOSE FOR CONT INSOMNIA; Start 10/30/16 at 16:45 Methylnaltrexone Coward (Relistor) 12 mg 1X ONCE SQ ; Start 10/30/16 at 17:15 ; Stop 10/30/16 at 17:15; Status DC Methylnaltrexone Coward (Relistor) 12 mg 1X ONCE SQ Last administered on 10/31 13:19; Start 10/31/16 at 13:30; Stop 10/31/16 at 13:31; Status DC Lubiprostone (Amitiza) 24 mcg BIDWMEALS PO Last administered on 11/01/16 08:13 ; Start 11/01/16 at 08:00 Active Scripts Active Famotidine 20 Mg Tablet 20 Mg PO BID 14 Days Reported Bisacodyl 5 Mg Tablet.dr 5 Mg PO Q12HR PRN Abilify (Aripiprazole) 5 Mg Tablet 7.5 Mg PO DAILY Zolpidem Tartrate 10 Mg Tablet 1 Tab PO QHS Zoloft (Sertraline Hcl) 100 Mg Tablet 2 Tab PO DAILY Tylenol (Acetaminophen) 325 Mg Tablet 650 Mg PO Q6HRS Trazodone Hcl 50 Mg Tablet 1 Tab PO QHS Reglan (Metoclopramide Hcl) 10 Mg Tablet 5 Mg PO TID Calcium Acetate 667 Mg Tablet 667 Mg PO TIDWMEALS Oxycodone HCl ER (Oxycodone HCl) 40 Mg Tab.er.12h 40 Mg PO TID Omeprazole 20 Mg Capsule.dr 1 Cap PO DAILY Norvasc (Amlodipine Besylate) 5 Mg Tablet 1 Tab PO BID Nitrostat (Nitroglycerin) 0.4 Mg Tab.subl 0.4 Mg SL PRN Q10MIN PRN Nephro-Dangelo Tablet (Folic Acid/Vitamin B Comp W-C) 0.8 Mg Tablet 1 Tab PO DAILY Mirtazapine 15 Mg Tablet 1 Tab PO QHS Miralax (Polyethylene Glycol 3350) 17 Gm Powd.pack 1 Packet PO BID Anti-Diarrheal (Loperamide Hcl) 2 Mg Capsule 2 Mg PO Q4HRS Lidocaine-Prilocaine Cream (Lidocaine/Prilocaine) 30 Gm Cream..g. 1 Adrienne TP UD Levothyroxine Sodium 75 Mcg Tablet 1 Tab PO DAILY FENTANYL 50mcg/hr (Fentanyl) 1 Each Patch.td72 1 Patch TP Q3DAYS Cymbalta (Duloxetine Hcl) 60 Mg Capsule.dr 60 Mg PO DAILY Cymbalta (Duloxetine Hcl) 30 Mg Capsule.dr 1 Cap PO DAILY Clonidine Hcl 0.1 Mg Tablet 0.1 Mg PO DAILY Clonazepam 2 Mg Tablet 1 Tab PO QHS Calcium Carbonate 650 Mg Tablet 1,000 Mg PO QHS Allergies Allergies: Coded Allergies: Sulfa (Sulfonamide Antibiotics) (Verified Allergy, Intermediate, 03/08/16) amoxicillin (Verified Allergy, Intermediate, 03/08/16) gabapentin (Verified Allergy, Intermediate, 03/08/16) pregabalin (Verified Allergy, Intermediate, 03/08/16) ROS General: No: Chills, Other (fevers) PSYCHOLOGICAL ROS: No: Anxiety, Depression Eyes: No Blurry vision, No Double vision Hematological and Lymphatic: No: Bleeding Problems, Blood Clots Respiratory: YES: Shortness of breath, No: Cough Cardiovascular: No Chest Pain, No Palpitations Gastrointestinal: Yes Other (see hpi) Genitourinary: No Dysuria, No Hematuria Musculoskeletal: Yes Muscular Weakness Neurological: No Confusion, No Numbness/Tingling Skin: No Pruritus, No Rash Physical Exam General: Alert, Oriented X3, Cooperative, No acute distress HEENT: PERRLA, Mucous membr. moist/pink Lungs: Clear to auscultation, Normal air movement Heart: Regular rate, Normal S1, Normal S2, No murmurs Abdomen: Soft, Other (distended, tender mid abdomen ) Extremities: No clubbing, No cyanosis Neuro: Normal speech, Sensation intact Psych/Mental Status: Mental status NL, Mood NL Vitals VITALS Vital Signs Date Time Temp Pulse Resp B/P Pulse Ox O2 Delivery O2 Flow Rate FiO2 11/01/16 10:59 97.9 69 18 146/74 95 Room Air 97.9 Labs Labs Laboratory Tests Test 10/31/16 04:30 White Blood Count 3.8x10^3/uL (4.0-11.0) Red Blood Count 3.05x10^6/uL (4.30-5.70) Hemoglobin 10.6g/dL (13.0-17.5) Hematocrit 32.7% (39.0-53.0) Mean Corpuscular Volume 107fL (79-100) Mean Corpuscular Hemoglobin 35pg (25-35) Mean Corpuscular Hemoglobin Concent 32g/dL (31-37) Red Cell Distribution Width 13.7% (11.5-14.5) Platelet Count 137x10^3/uL (140-400) Sodium Level 144mmol/L (136-145) Potassium Level 3.5mmol/L (3.5-5.1) Chloride Level 104mmol/L (98-107) Carbon Dioxide Level 27mmol/L (21-32) Anion Gap 13 (6-14) Blood Urea Nitrogen 25mg/dL (8-26) Creatinine 4.6mg/dL (0.7-1.3) Estimated GFR (Cockcroft-Gault) 13.1 BUN/Creatinine Ratio 5 (6-20) Glucose Level 77mg/dL (70-99) Calcium Level 8.3mg/dL (8.5-10.1) Total Bilirubin 0.6mg/dL (0.2-1.0) Aspartate Amino Transf (AST/SGOT) 11U/L (15-37) Alanine Aminotransferase (ALT/SGPT) 16U/L (16-63) Alkaline Phosphatase 58U/L (46-116) Total Protein 5.8g/dL (6.4-8.2) Albumin 3.2g/dL (3.4-5.0) Albumin/Globulin Ratio 1.2 (1.0-1.7) Thyroid Stimulating Hormone (TSH) 2.445uIU/mL (0.358-3.74) Assessment/Plan Assessment/Plan Multiple medical problems including ESRD, spina bifida, constipation, abdominal distention CT from 10/29 showed no obstruction, findings of atonic colon Gi following had received Relistor CT today for FU will FU on those results KEILY MARTIN STEM ROLLER OPERATOR Nov 01, 2016 12:35
[2016-11-01 12:44] LABS: CALCIUM 8.7 mg/dL (8.5-10.1); CREATININE 7.1 mg/dL (0.7-1.3); POTASSIUM 3.8 mmol/L (3.5-5.1)
[2016-11-01 12:50] LABS: ALBUMIN 3.5 g/dL (3.4-5.0); ALBUMIN/GLOBULIN RATIO 1.1 (1.0-1.7); TOTAL BILIRUBIN 0.5 mg/dL (0.2-1.0); TOTAL PROTEIN 6.6 g/dL (6.4-8.2)
--- NOTE | 2016-11-01 13:13 | PDOC ---
Subjective: Subjective: "I'm not any better" but then admits to many stools. "All over" abd pain. Objective: Objective: Per RN - numerous stools after Relistor. Possible repeat CT today. Vital Signs: Vital Signs Date Time Temp Pulse Resp B/P Pulse Ox O2 Delivery O2 Flow Rate FiO2 11/01/16 12:13 95 Room Air 11/01/16 10:59 97.9 69 18 146/74 97.9 Labs: Laboratory Tests Test 11/01/16 12:15 White Blood Count 6.8x10^3/uL Red Blood Count 3.20x10^6/uL Hemoglobin 11.2g/dL Hematocrit 33.9% Mean Corpuscular Volume 106fL Mean Corpuscular Hemoglobin 35pg Mean Corpuscular Hemoglobin Concent 33g/dL Red Cell Distribution Width 14.0% Platelet Count 139x10^3/uL Neutrophils (%) (Auto) 80% Lymphocytes (%) (Auto) 11% Monocytes (%) (Auto) 8% Eosinophils (%) (Auto) 1% Basophils (%) (Auto) 0% Neutrophils # (Auto) 5.4x10^3uL Lymphocytes # (Auto) 0.7x10^3/uL Monocytes # (Auto) 0.6x10^3/uL Eosinophils # (Auto) 0.1x10^3/uL Basophils # (Auto) 0.0x10^3/uL Sodium Level 143mmol/L Potassium Level 3.8mmol/L Chloride Level 102mmol/L Carbon Dioxide Level 25mmol/L Anion Gap 16 Blood Urea Nitrogen 41mg/dL Creatinine 7.1mg/dL Estimated GFR (Cockcroft-Gault) 8.0 BUN/Creatinine Ratio 6 Glucose Level 89mg/dL Lactic Acid Level 0.9mmol/L Calcium Level 8.7mg/dL Total Bilirubin 0.5mg/dL Aspartate Amino Transf (AST/SGOT) 10U/L Alanine Aminotransferase (ALT/SGPT) 17U/L Alkaline Phosphatase 62U/L Lactate Dehydrogenase 164U/L Total Protein 6.6g/dL Albumin 3.5g/dL Albumin/Globulin Ratio 1.1 Imaging: CT 10/29: IMPRESSION: spinal bifida with chronic bilateral hip dislocations, moderate distention of the colon with gas and stool in a pattern suggesting an atonic colon, mild dilatation of distal small bowel loops, status post left nephrectomy, severely atrophic, scarred right kidney, ileal conduit containing high density fluid compatible with the history that it is nonfunctioning, minimal bibasilar groundglass pulmonary opacities may be due to inflammation or scarring, cystic splenic lesion compatible with an old hematoma or benign cyst, small hiatal hernia. PE: GEN: NAD, empty lunch tray LUNGS: CTAB HEART: RRR ABD: BS+, diffusely tender to light touch NEURO/PSYCH: A & O 3 A/P: Chronic constipation - improved after Relistor -has Doris ordered Abd pain -- Continue custodial therapy for constipation. Possible interval CT today. CLAUDIA FERRARI Nov 01, 2016 13:13
[2016-11-01] MEDS ORDERED: IOHEXOL 300 MG/ML 75 ML VIAL IV ONE (14:00)
[2016-11-01] MEDS ORDERED: IOHEXOL 240 MG/ML 50ML VIAL. PO ONE (14:00)
[2016-11-01 14:51] VITALS: BP 154/90
--- NOTE | 2016-11-01 15:42 | RAD ---
Indication: Abdominal pain and distention, nausea and vomiting. Technique: Axial images and coronal and sagittal reformatted images are provided. Oral contrast and 75 mL of intravenous Omnipaque 300 was administered without complication. Comparison is a noncontrast study from October 29, 2016. One or more of the following individualized dose reduction techniques were utilized for this examination: 1. Automated exposure control 2. Adjustment of the mA and/or kV according to patient size 3. Use of iterative reconstruction technique Findings: There is right basilar atelectasis or scarring. There is no pleural effusion. The heart is not enlarged. Coronary artery calcifications are noted. There may be minimal fatty infiltration of the liver. Gallbladder is absent. Common bile duct is mildly prominent which can be within normal limits post cholecystectomy. Splenic cyst or lymphangioma is noted measuring 7 cm. Pancreas and adrenals are unremarkable. Left kidney is absent. Right kidney is atrophic with simple cyst measuring 2.5 cm. Second possible cyst measures 9 mm. There is atheromatous disease in the abdominal aorta without aneurysm. There is no small bowel obstruction or mural thickening. There is a small hiatal hernia. There are postsurgical changes in the region of the stomach. There is no small bowel obstruction or mural thickening. Patient apparently has an ileal conduit. There is increased stool in the colon. Bladder is absent. There is no pelvic mass. There are degenerative changes in the spine. 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 Impression: 1. No acute abdominal findings. 2. No significant change from 3 days ago.
[2016-11-01 19:00] VITALS: BP 155/91
[2016-11-01] MEDS: traZODone 50 MG TABLET. PO SCH (21:21)
[2016-11-01] MEDS: ZOLPIDEM 5 MG TABLET. PO SCH (21:21)
[2016-11-01 23:00] VITALS: BP 143/85
[2016-11-02] MEDS: OXYCODONE IR 5 MG TABLET. PO PRN ×4 (01:29→23:22)
[2016-11-02 03:00] VITALS: BP 125/91
[2016-11-02] MEDS: MORPHINE SULFATE 4 MG/ML DISP.SYRIN. IV PRN ×3 (03:45→17:58)
[2016-11-02 04:49] LABS: CALCIUM 8.2 mg/dL (8.5-10.1); CREATININE 7.9 mg/dL (0.7-1.3); POTASSIUM 3.8 mmol/L (3.5-5.1)
--- NOTE | 2016-11-02 06:46 | PN ---
DATE: 11/01/2016 SUBJECTIVE: The patient is resting, slightly propped up in bed, continued to complain of abdominal pain mostly in the left lower quadrant. He has also had nausea and vomiting. Yesterday, his diet was advanced to renal diet. He has had multiple loose bowel movements in response to ____ the day before yesterday and yesterday, and they did start him on Amitiza 24 mcg today. PHYSICAL EXAMINATION: GENERAL: When I examined him this morning, he looked well and was clearly in no apparent respiratory distress, pale, no jaundice, cyanosis, or thyromegaly. No jugular venous distension. No limb edema. VITAL SIGNS: His heart rate was 69, blood pressure 146/74, temperature was 97.9, respiratory rate was 18, and oxygen saturation was 95%. HEAD, EYES, EARS, NOSE AND THROAT: Showed normocephalic, atraumatic. NECK: Supple. HEART: Showed normal first and second sounds. No gallop, rub, or murmur. CHEST: Clear to auscultation. No crepitation or rhonchi. ABDOMEN: Distended, soft with tenderness mostly in the left lower quadrant and suprapubic area. Bowel sounds are sluggish. I did a rectal exam which showed that the rectal vault was in fact empty. NEUROLOGIC: He was awake, alert, responding appropriately. Cranial nerves intact. He moves upper extremities without difficulty. RECTAL: He has spina bifida cystica with paraplegia and neurogenic bladder status post ileal conduit that is not functioning. He is completely anuric and hemodialysis dependent. His intake was 1016, no output was recorded. LABORATORY DATA: No lab work was done today. ASSESSMENT: The patient continued to have nausea, vomiting, and abdominal pain. His rectal exam showed empty rectal vault. PLAN: My plan is to repeat some lab work including CBC, CMP, LDH, and lactic acid and also repeat his CT scan of the abdomen and decide on further management accordingly. He was seen already by the surgical instrument mechanic. I am not sure if there are any surgical issues here. He is afebrile. His white cell count is normal. There is no evidence to suggest that he has diverticulitis. WAYLON CONCEPCION MD DR: ADDIE/joe JOB#: [id number] / [id number]
[2016-11-02 07:00] VITALS: BP 130/67
[2016-11-02] MEDS: LUBIPROSTONE 8 MCG CAPSULE PO SCH ×2 (07:35→17:57)
[2016-11-02] MEDS: PANTOPRAZOLE 40 MG TABLET. PO SCH (07:35)
[2016-11-02] MEDS: ONDANSETRON PF 4 MG/2 ML VIAL. IV PRN (08:50)
[2016-11-02 10:50] VITALS: BP 145/92
--- NOTE | 2016-11-02 11:20 | PDOC ---
Subjective: Subjective: Nausea. Vomited after eating twice. Hungry. Still has abd pain. Objective: Objective: Per RN - no more stools, vomited after dinner and after breakfast. Vital Signs: Vital Signs Date Time Temp Pulse Resp B/P Pulse Ox O2 Delivery O2 Flow Rate FiO2 11/02/16 10:50 97.8 106 18 145/92 95 Room Air 97.8 Labs: Laboratory Tests Test 11/01/16 12:15 11/02/16 03:20 White Blood Count 6.8x10^3/uL Red Blood Count 3.20x10^6/uL Hemoglobin 11.2g/dL Hematocrit 33.9% Mean Corpuscular Volume 106fL Mean Corpuscular Hemoglobin 35pg Mean Corpuscular Hemoglobin Concent 33g/dL Red Cell Distribution Width 14.0% Platelet Count 139x10^3/uL Neutrophils (%) (Auto) 80% Lymphocytes (%) (Auto) 11% Monocytes (%) (Auto) 8% Eosinophils (%) (Auto) 1% Basophils (%) (Auto) 0% Neutrophils # (Auto) 5.4x10^3uL Lymphocytes # (Auto) 0.7x10^3/uL Monocytes # (Auto) 0.6x10^3/uL Eosinophils # (Auto) 0.1x10^3/uL Basophils # (Auto) 0.0x10^3/uL Sodium Level 143mmol/L 141mmol/L Potassium Level 3.8mmol/L 3.8mmol/L Chloride Level 102mmol/L 101mmol/L Carbon Dioxide Level 25mmol/L 25mmol/L Anion Gap 16 15 Blood Urea Nitrogen 41mg/dL 49mg/dL Creatinine 7.1mg/dL 7.9mg/dL Estimated GFR (Cockcroft-Gault) 8.0 7.0 BUN/Creatinine Ratio 6 Glucose Level 89mg/dL 74mg/dL Lactic Acid Level 0.9mmol/L Calcium Level 8.7mg/dL 8.2mg/dL Total Bilirubin 0.5mg/dL Aspartate Amino Transf (AST/SGOT) 10U/L Alanine Aminotransferase (ALT/SGPT) 17U/L Alkaline Phosphatase 62U/L Lactate Dehydrogenase 164U/L Total Protein 6.6g/dL Albumin 3.5g/dL Albumin/Globulin Ratio 1.1 Imaging: CT A/P w/ oral and IV contrast Findings: There is right basilar atelectasis or scarring. There is no pleural effusion. The heart is not enlarged. Coronary artery calcifications are noted. There may be minimal fatty infiltration of the liver. Gallbladder is absent. Common bile duct is mildly prominent which can be within normal limits post cholecystectomy. Splenic cyst or lymphangioma is noted measuring 7 cm. Pancreas and adrenals are unremarkable. Left kidney is absent. Right kidney is atrophic with simple cyst measuring 2.5 cm. Second possible cyst measures 9mm. There is atheromatous disease in the abdominal aorta without aneurysm. There is no small bowel obstruction or mural thickening. There is a small hiatal hernia. There are postsurgical changes in the region of the stomach. There is no small bowel obstruction or mural thickening. Patient apparently has an ileal conduit. There is increased stool in the colon. Bladder is absent. There is no pelvic mass. There are degenerative changes in the spine. 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 Impression: 1. No acute abdominal findings. 2. No significant change from 3 days ago. PE: GEN: NAD LUNGS: CTAB HEART: RRR ABD: BS+, epigastric tenderness (says hurts diffusely similar to yesterday) NEURO/PSYCH: A & O 3 A/P: Chronic constipation -multiple stools after Relistor -also on Amitiza Abd pain, n/v, h/o GERD -- Continue therapy for constipation - ?repeat Relistor Continue PPI. Will change to clears for lunch w/ post-prandial vomiting. CLAUDIA FERRARI Nov 02, 2016 11:20
--- NOTE | 2016-11-02 11:30 | PDOC ---
Renal-Progress Notes Subjective Notes Notes NOTHING NEW. STILL HAS SOME N/V AND ABD PAIN History of Present Illness Hx of present illness STABLE Vitals Vitals Vital Signs Date Time Temp Pulse Resp B/P Pulse Ox O2 Delivery O2 Flow Rate FiO2 11/02/16 10:50 97.8 106 18 145/92 95 Room Air 97.8 Weight Weight [ ] I.O. Intake and Output Intake and Output 11/02/16 07:00 Intake Total 1370 ml Output Total 0 ml Balance 1370 ml Intake Oral 1370 ml Output Urine Total 0 ml Labs Labs Laboratory Tests Test 11/01/16 12:15 11/02/16 03:20 White Blood Count 6.8x10^3/uL (4.0-11.0) Red Blood Count 3.20x10^6/uL (4.30-5.70) Hemoglobin 11.2g/dL (13.0-17.5) Hematocrit 33.9% (39.0-53.0) Mean Corpuscular Volume 106fL (79-100) Mean Corpuscular Hemoglobin 35pg (25-35) Mean Corpuscular Hemoglobin Concent 33g/dL (31-37) Red Cell Distribution Width 14.0% (11.5-14.5) Platelet Count 139x10^3/uL (140-400) Neutrophils (%) (Auto) 80% (31-73) Lymphocytes (%) (Auto) 11% (24-48) Monocytes (%) (Auto) 8% (0-9) Eosinophils (%) (Auto) 1% (0-3) Basophils (%) (Auto) 0% (0-3) Neutrophils # (Auto) 5.4x10^3uL (1.8-7.7) Lymphocytes # (Auto) 0.7x10^3/uL (1.0-4.8) Monocytes # (Auto) 0.6x10^3/uL (0.0-1.1) Eosinophils # (Auto) 0.1x10^3/uL (0.0-0.7) Basophils # (Auto) 0.0x10^3/uL (0.0-0.2) Sodium Level 143mmol/L (136-145) 141mmol/L (136-145) Potassium Level 3.8mmol/L (3.5-5.1) 3.8mmol/L (3.5-5.1) Chloride Level 102mmol/L (98-107) 101mmol/L (98-107) Carbon Dioxide Level 25mmol/L (21-32) 25mmol/L (21-32) Anion Gap 16 (6-14) 15 (6-14) Blood Urea Nitrogen 41mg/dL (8-26) 49mg/dL (8-26) Creatinine 7.1mg/dL (0.7-1.3) 7.9mg/dL (0.7-1.3) Estimated GFR (Cockcroft-Gault) 8.0 7.0 BUN/Creatinine Ratio 6 (6-20) Glucose Level 89mg/dL (70-99) 74mg/dL (70-99) Lactic Acid Level 0.9mmol/L (0.4-2.0) Calcium Level 8.7mg/dL (8.5-10.1) 8.2mg/dL (8.5-10.1) Total Bilirubin 0.5mg/dL (0.2-1.0) Aspartate Amino Transf (AST/SGOT) 10U/L (15-37) Alanine Aminotransferase (ALT/SGPT) 17U/L (16-63) Alkaline Phosphatase 62U/L (46-116) Lactate Dehydrogenase 164U/L (85-227) Total Protein 6.6g/dL (6.4-8.2) Albumin 3.5g/dL (3.4-5.0) Albumin/Globulin Ratio 1.1 (1.0-1.7) Review of Systems Constitutional: yes: no symptom reported Physical Exam General Appearance: no apparent distress Skin: warm Respiratory: bilateral CTA Heart: S1S2, no thrills Abdomen: soft, bowel sounds present Extremities: pulses present, atrophy Neurology: alert Assessment Assessment IMP CONSTIPATION ANEMIA ESRD PLAN HD TODAY UF TO [facility] GI EVAL AND TX WILL FOLLOW KELLY CALHOUN MD Nov 02, 2016 11:30
[2016-11-02] MEDS ORDERED: METHYLNALTREXONE 12 MG/0.6 ML VIAL. SQ PRN (12:45)
--- NOTE | 2016-11-02 13:17 | PDOC ---
SURGICAL PROGRESS NOTE Subjective n/v after eating abdominal, chronic about at his baseline Vital Signs Vital Signs Date Time Temp Pulse Resp B/P Pulse Ox O2 Delivery O2 Flow Rate FiO2 11/02/16 12:46 95 Room Air 11/02/16 10:50 97.8 106 18 145/92 97.8 I&O Intake and Output 11/02/16 07:00 Intake Total 1370 ml Output Total 0 ml Balance 1370 ml Intake Oral 1370 ml Output Urine Total 0 ml General: Alert, Oriented X3, Cooperative, No acute distress Abdomen: Soft, Other (mildly distended ) Labs Laboratory Tests Test 11/01/16 12:15 11/02/16 03:20 White Blood Count 6.8x10^3/uL (4.0-11.0) Red Blood Count 3.20x10^6/uL (4.30-5.70) Hemoglobin 11.2g/dL (13.0-17.5) Hematocrit 33.9% (39.0-53.0) Mean Corpuscular Volume 106fL (79-100) Mean Corpuscular Hemoglobin 35pg (25-35) Mean Corpuscular Hemoglobin Concent 33g/dL (31-37) Red Cell Distribution Width 14.0% (11.5-14.5) Platelet Count 139x10^3/uL (140-400) Neutrophils (%) (Auto) 80% (31-73) Lymphocytes (%) (Auto) 11% (24-48) Monocytes (%) (Auto) 8% (0-9) Eosinophils (%) (Auto) 1% (0-3) Basophils (%) (Auto) 0% (0-3) Neutrophils # (Auto) 5.4x10^3uL (1.8-7.7) Lymphocytes # (Auto) 0.7x10^3/uL (1.0-4.8) Monocytes # (Auto) 0.6x10^3/uL (0.0-1.1) Eosinophils # (Auto) 0.1x10^3/uL (0.0-0.7) Basophils # (Auto) 0.0x10^3/uL (0.0-0.2) Sodium Level 143mmol/L (136-145) 141mmol/L (136-145) Potassium Level 3.8mmol/L (3.5-5.1) 3.8mmol/L (3.5-5.1) Chloride Level 102mmol/L (98-107) 101mmol/L (98-107) Carbon Dioxide Level 25mmol/L (21-32) 25mmol/L (21-32) Anion Gap 16 (6-14) 15 (6-14) Blood Urea Nitrogen 41mg/dL (8-26) 49mg/dL (8-26) Creatinine 7.1mg/dL (0.7-1.3) 7.9mg/dL (0.7-1.3) Estimated GFR (Cockcroft-Gault) 8.0 7.0 BUN/Creatinine Ratio 6 (6-20) Glucose Level 89mg/dL (70-99) 74mg/dL (70-99) Lactic Acid Level 0.9mmol/L (0.4-2.0) Calcium Level 8.7mg/dL (8.5-10.1) 8.2mg/dL (8.5-10.1) Total Bilirubin 0.5mg/dL (0.2-1.0) Aspartate Amino Transf (AST/SGOT) 10U/L (15-37) Alanine Aminotransferase (ALT/SGPT) 17U/L (16-63) Alkaline Phosphatase 62U/L (46-116) Lactate Dehydrogenase 164U/L (85-227) Total Protein 6.6g/dL (6.4-8.2) Albumin 3.5g/dL (3.4-5.0) Albumin/Globulin Ratio 1.1 (1.0-1.7) Laboratory Tests Test 11/02/16 03:20 Sodium Level 141mmol/L (136-145) Potassium Level 3.8mmol/L (3.5-5.1) Chloride Level 101mmol/L (98-107) Carbon Dioxide Level 25mmol/L (21-32) Anion Gap 15 (6-14) Blood Urea Nitrogen 49mg/dL (8-26) Creatinine 7.9mg/dL (0.7-1.3) Estimated GFR (Cockcroft-Gault) 7.0 Glucose Level 74mg/dL (70-99) Calcium Level 8.2mg/dL (8.5-10.1) Problem List Problems Medical Problems: (1) Ascites Status: Acute (2) ESRD (end stage renal disease) on dialysis Status: Acute Assessment/Plan constipation no acute findings on CT GI is following no surgical recs available as needed Problems: KEILY MARTIN APRN Nov 02, 2016 13:17
[2016-11-02] MEDS ORDERED: IV NORMAL SALINE 1000ML BAG 1,000 ML IV PRN ×2 (14:43)
[2016-11-02] MEDS ORDERED: DIALYSIS PATIENT. MC PRN (14:45)
[2016-11-02 19:00] VITALS: BP 133/79
[2016-11-02] MEDS: ZOLPIDEM 5 MG TABLET. PO SCH (20:49)
[2016-11-02] MEDS: traZODone 50 MG TABLET. PO SCH (20:49)
[2016-11-02 22:31] VITALS: BP 121/77
--- NOTE | 2016-11-03 00:41 | PN ---
DATE: 11/02/2016 SUBJECTIVE: The patient is resting, slightly propped up in bed, still complaining of abdominal pain, nausea and vomiting. I did a rectal exam yesterday which showed that the rectal vault was empty; however, the CT scan continued to show constipation, but no evidence of any bowel obstruction or diverticulitis. He did respond very well to Relistor. Unfortunately, Movantik is not available here. PHYSICAL EXAMINATION: GENERAL: When I examined him, he looked pale. No jaundice, cyanosis, or thyromegaly. No jugular venous distension. No limb edema. VITAL SIGNS: His heart rate was 106, blood pressure was 145/92, temperature was 97.8, respiratory rate was 18, and oxygen saturation was 95%. HEAD, EYES, EARS, NOSE AND THROAT: Showed normocephalic, atraumatic. NECK: Supple. HEART: Showed normal first and second heart sounds. No gallop, rub, or murmur. CHEST: Clear to auscultation. No crepitation or rhonchi. ABDOMEN: Distended, soft. Tenderness mostly in the left lower quadrant. No guarding, no rigidity, no organomegaly. Hernial orifices intact. Bowel sounds normal. NEUROLOGIC: He is visually impaired. He is also hard of hearing; otherwise all other cranial nerves are intact. He moves upper extremities without difficulty. He has spina bifida cystica with paraplegia. He is mostly bedbound, chair bound. He is completely anuric and hemodialysis dependent. LABORATORY DATA: His white cell count this morning was 6800, hemoglobin was 11, hematocrit 33, MCV 106, and platelet count of 139,000. Serum sodium was 141, potassium 3.8, chloride 101, bicarbonate 25, anion gap of 15, BUN 49, creatinine 7.9, glucose was 74, and calcium was 8.9. ASSESSMENT: 1. Abdominal distention, abdominal pain: Likely secondary to opioid-induced constipation. 2. End-stage renal disease: On hemodialysis. 3. Spina bifida cystica with paraplegia and neurogenic bladder, for which he has ileal conduit that is nonfunctioning. 4. Seizure disorder. 5. Hyperlipidemia. 6. Hypothyroidism. 7. Iron deficiency anemia. 8. Anxiety and depression. 9. Chronic pain syndrome: On multiple narcotics. PLAN: I have discussed the further management with the success coach and I await the recommendation by the success coach. Unfortunately, Movantik is not available here. He did respond well to Relistor before and we might have to end up giving him enemas to clean him up. WAYLON CONCEPCION MD DR: ADDIE/joe JOB#: [id number] / [id number]
[2016-11-03 07:00] VITALS: BP 134/75
[2016-11-03] MEDS: PANTOPRAZOLE 40 MG TABLET. PO SCH (07:23)
[2016-11-03] MEDS: LUBIPROSTONE 8 MCG CAPSULE PO SCH ×2 (08:39→16:30)
[2016-11-03] MEDS: ONDANSETRON PF 4 MG/2 ML VIAL. IV PRN (08:40)
[2016-11-03] MEDS: MORPHINE SULFATE 4 MG/ML DISP.SYRIN. IV PRN ×2 (08:41→14:48)
--- NOTE | 2016-11-03 10:24 | PDOC ---
G I PROGRESS NOTE Subjective Feeling better. Would like real food. Has stooled after Relistor. Physical Exam Lungs clear. RRR Abdomen soft, not distended nor tender. Review of Relevant I have reviewed the following items slim (where applicable) has been applied. Labs Laboratory Tests Test 11/01/16 12:15 11/02/16 03:20 White Blood Count 6.8x10^3/uL (4.0-11.0) Red Blood Count 3.20x10^6/uL (4.30-5.70) Hemoglobin 11.2g/dL (13.0-17.5) Hematocrit 33.9% (39.0-53.0) Mean Corpuscular Volume 106fL (79-100) Mean Corpuscular Hemoglobin 35pg (25-35) Mean Corpuscular Hemoglobin Concent 33g/dL (31-37) Red Cell Distribution Width 14.0% (11.5-14.5) Platelet Count 139x10^3/uL (140-400) Neutrophils (%) (Auto) 80% (31-73) Lymphocytes (%) (Auto) 11% (24-48) Monocytes (%) (Auto) 8% (0-9) Eosinophils (%) (Auto) 1% (0-3) Basophils (%) (Auto) 0% (0-3) Neutrophils # (Auto) 5.4x10^3uL (1.8-7.7) Lymphocytes # (Auto) 0.7x10^3/uL (1.0-4.8) Monocytes # (Auto) 0.6x10^3/uL (0.0-1.1) Eosinophils # (Auto) 0.1x10^3/uL (0.0-0.7) Basophils # (Auto) 0.0x10^3/uL (0.0-0.2) Sodium Level 143mmol/L (136-145) 141mmol/L (136-145) Potassium Level 3.8mmol/L (3.5-5.1) 3.8mmol/L (3.5-5.1) Chloride Level 102mmol/L (98-107) 101mmol/L (98-107) Carbon Dioxide Level 25mmol/L (21-32) 25mmol/L (21-32) Anion Gap 16 (6-14) 15 (6-14) Blood Urea Nitrogen 41mg/dL (8-26) 49mg/dL (8-26) Creatinine 7.1mg/dL (0.7-1.3) 7.9mg/dL (0.7-1.3) Estimated GFR (Cockcroft-Gault) 8.0 7.0 BUN/Creatinine Ratio 6 (6-20) Glucose Level 89mg/dL (70-99) 74mg/dL (70-99) Lactic Acid Level 0.9mmol/L (0.4-2.0) Calcium Level 8.7mg/dL (8.5-10.1) 8.2mg/dL (8.5-10.1) Total Bilirubin 0.5mg/dL (0.2-1.0) Aspartate Amino Transf (AST/SGOT) 10U/L (15-37) Alanine Aminotransferase (ALT/SGPT) 17U/L (16-63) Alkaline Phosphatase 62U/L (46-116) Lactate Dehydrogenase 164U/L (85-227) Total Protein 6.6g/dL (6.4-8.2) Albumin 3.5g/dL (3.4-5.0) Albumin/Globulin Ratio 1.1 (1.0-1.7) Medications Current Medications Morphine Sulfate 4 mg PRN Q4HRS PRN IV PAIN Last administered on 11/03/16 08: 41; Start 10/29/16 at 11:15 Fentanyl (Duragesic 50mcg/ Hr Patch) 1 patch Q3DAYS TD Last administered on 08:13; Start 10/29/16 at 12:00 Ondansetron HCl (Zofran) 4 mg PRN Q4HRS PRN IV NAUSEA/VOMITING Last administered on 11/03/16 08:40; Start 10/29/16 at 11:15 Iohexol (Omnipaque 240 Mg/ml) 40 ml 1X ONCE PO Last administered on 10/29/16 11:30; Start 10/29/16 at 11:30; Stop 10/29/16 at 11:31; Status DC Info (Do NOT chart on this entry -- for MONITORING) 1 each PRN DAILY PRN MC SEE COMMENTS; Start 10/29/16 at 11:30; Stop 10/31/16 at 11:29; Status DC Pantoprazole Sodium (Protonix Vial) 40 mg DAILYAC IVP Last administered on 11/01 05:29; Start 10/31/16 at 07:30; Stop 11/01/16 at 14:25; Status DC Pantoprazole Sodium 40 mg 40 mg 1X ONCE IVP Last administered on 10/30/16 03: 02; Start 10/30/16 at 03:00; Stop 10/30/16 at 03:01; Status DC Sodium Chloride 1,000 ml @ 1,000 mls/hr Q1H PRN IV hypotension; Start 10/30/16 at 08:40; Stop 10/30/16 at 14:39; Status DC Albumin Human (Albuminar) 200 ml @ 200 mls/hr 1X PRN PRN IV Hypotension; Start 10/30/16 at 08:45; Stop 10/30/16 at 14:44; Status DC Acetaminophen (Tylenol) 500 mg 1X PRN PRN PO MILD PAIN / TEMP Last administered on 10/30/16 09:59; Start 10/30/16 at 08:45; Stop 10/30/16 at 19:00 ; Status DC Diphenhydramine HCl (Benadryl) 25 mg 1X PRN PRN IV ITCHING; Start 10/30/16 at 08:45; Stop 10/30/16 at 19:00; Status DC Diphenhydramine HCl (Benadryl) 25 mg 1X PRN PRN IV ITCHING; Start 10/30/16 at 08:45; Stop 10/30/16 at 19:00; Status DC Info (PHARMACY MONITORING -- do not chart) 1 each PRN DAILY PRN MC SEE COMMENTS ; Start 10/30/16 at 08:45 Bisacodyl (Dulcolax Supp) 10 mg PRN DAILY PRN RI CONSTIPATION; Start 10/30/16 at 13:45 Methylnaltrexone [place] (Relistor) 12 mg 1X ONCE SQ Last administered on 10/30 14:21; Start 10/30/16 at 14:30; Stop 10/30/16 at 14:31; Status DC Ondansetron HCl (Zofran Odt) 4 mg PRN Q4HRS PRN PO NAUSEA/VOMITING; Start 10/30 at 16:00 Oxycodone HCl (Roxicodone) 5 mg PRN Q4HRS PRN PO PAIN Last administered on 11/02 23:22; Start 10/30/16 at 16:00 Trazodone HCl (Desyrel) 50 mg QHS PO Last administered on 11/02/16 20:49; Start 10/30/16 at 21:00 Zolpidem Tartrate (Ambien) 5 mg QHS PO Last administered on 11/02/16 20:49; Start 10/30/16 at 21:00 Zolpidem Tartrate (Ambien) 5 mg PRN QHS PRN PO REPEAT DOSE FOR CONT INSOMNIA; Start 10/30/16 at 16:45 Methylnaltrexone [place] (Relistor) 12 mg 1X ONCE SQ ; Start 10/30/16 at 17:15 ; Stop 10/30/16 at 17:15; Status DC Methylnaltrexone [place] (Relistor) 12 mg 1X ONCE SQ Last administered on 10/31 13:19; Start 10/31/16 at 13:30; Stop 10/31/16 at 13:31; Status DC Lubiprostone (Amitiza) 24 mcg BIDWMEALS PO Last administered on 11/03/16 08:39 ; Start 11/01/16 at 08:00 Iohexol (Omnipaque 240 Mg/ml) 50 ml 1X ONCE PO Last administered on 11/01/16 14:00; Start 11/01/16 at 14:00; Stop 11/01/16 at 14:01; Status DC Iohexol (Omnipaque 300 Mg/ml) 75 ml 1X ONCE IV Last administered on 11/01/16 14:58; Start 11/01/16 at 14:00; Stop 11/01/16 at 14:01; Status DC Pantoprazole Sodium (Protonix) 40 mg DAILYAC PO Last administered on 11/03/16 07:23; Start 11/02/16 at 07:30 Methylnaltrexone [place] 12 mg 12 mg PRN Q48HR PRN SQ no stool Last administered on 11/02/16 20:11; Start 11/02/16 at 12:45 Sodium Chloride 1,000 ml @ 1,000 mls/hr Q1H PRN IV hypotension; Start 11/02/16 at 14:43; Stop 11/02/16 at 20:42; Status DC Sodium Chloride (Iv Sodium Chloride 0.9% 1000ml Bag) 1,000 ml @ 400 mls/hr Q2H30M PRN IV PATENCY; Start 11/02/16 at 14:43; Stop 11/03/16 at 02:42; Status DC Info (PHARMACY MONITORING -- do not chart) 1 each PRN DAILY PRN MC SEE COMMENTS ; Start 11/02/16 at 14:45; Status UNV Active Scripts Active Famotidine 20 Mg Tablet 20 Mg PO BID 14 Days Reported Bisacodyl 5 Mg Tablet. 5 Mg PO Q12HR PRN Abilify (Aripiprazole) 5 Mg Tablet 7.5 Mg PO DAILY Zolpidem Tartrate 10 Mg Tablet 1 Tab PO QHS Zoloft (Sertraline Hcl) 100 Mg Tablet 2 Tab PO DAILY Tylenol (Acetaminophen) 325 Mg Tablet 650 Mg PO Q6HRS Trazodone Hcl 50 Mg Tablet 1 Tab PO QHS Reglan (Metoclopramide Hcl) 10 Mg Tablet 5 Mg PO TID Calcium Acetate 667 Mg Tablet 667 Mg PO TIDWMEALS Oxycodone HCl ER (Oxycodone HCl) 40 Mg Tab.er.12h 40 Mg PO TID Omeprazole 20 Mg Capsule. 1 Cap PO DAILY Norvasc (Amlodipine Besylate) 5 Mg Tablet 1 Tab PO BID Nitrostat (Nitroglycerin) 0.4 Mg Tab.subl 0.4 Mg SL PRN Q10MIN PRN Nephro-Dangelo Tablet (Folic Acid/Vitamin B Comp W-C) 0.8 Mg Tablet 1 Tab PO DAILY Mirtazapine 15 Mg Tablet 1 Tab PO QHS Miralax (Polyethylene Glycol 3350) 17 Gm Powd.pack 1 Packet PO BID Anti-Diarrheal (Loperamide Hcl) 2 Mg Capsule 2 Mg PO Q4HRS Lidocaine-Prilocaine Cream (Lidocaine/Prilocaine) 30 Gm Cream..g. 1 Adrienne TP UD Levothyroxine Sodium 75 Mcg Tablet 1 Tab PO DAILY FENTANYL 50mcg/hr (Fentanyl) 1 Each Patch.td72 1 Patch TP Q3DAYS Cymbalta (Duloxetine Hcl) 60 Mg Capsule. 60 Mg PO DAILY Cymbalta (Duloxetine Hcl) 30 Mg Capsule.dr 1 Cap PO DAILY Clonidine Hcl 0.1 Mg Tablet 0.1 Mg PO DAILY Clonazepam 2 Mg Tablet 1 Tab PO QHS Calcium Carbonate 650 Mg Tablet 1,000 Mg PO QHS Vitals/I & O Vital Sign - Last 24 Hours 11/02/16 11/02/16 11/02/16 11/02/16 10:50 12:46 12:46 13:46 Temp 97.8 97.8 Pulse 106 Resp 18 B/P 145/92 Pulse Ox 95 95 95 95 O2 Delivery Room Air Room Air Room Air Room Air 11/02/16 11/02/16 11/02/16 11/02/16 18:34 19:00 20:00 22:31 Temp 98.9 99.4 98.9 99.4 Pulse 74 88 Resp 18 18 B/P 133/79 121/77 Pulse Ox 95 97 94 O2 Delivery Room Air Room Air Room Air Room Air 11/02/16 11/03/16 11/03/16 11/03/16 23:22 00:30 07:00 08:00 Temp 98.7 98.7 Pulse 68 Resp 20 20 20 B/P 134/75 Pulse Ox 93 96 O2 Delivery Room Air Room Air Intake and Output 11/02/16 11/02/16 11/03/16 15:00 23:00 07:00 Intake Total 360 ml 240 ml 700 ml Output Total 0 ml Balance 360 ml 240 ml 700 ml Problem List Problems Medical Problems: (1) Ascites Status: Acute (2) ESRD (end stage renal disease) on dialysis Status: Acute Assessment Colonic inertia, partly from narcs given response to Relistor. Plan of Care: Continue current Tx, Mgmt Plan of Care Note May need regular use of either Movantik or oral Relistor once home. If no emesis today, advance diet. AIXA POOLE MD Nov 03, 2016 10:24
[2016-11-03 10:45] VITALS: BP 140/82
--- NOTE | 2016-11-03 11:13 | PDOC ---
Renal-Progress Notes Subjective Notes Notes SAME History of Present Illness Hx of present illness NO CHANGE Vitals Vitals Vital Signs Date Time Temp Pulse Resp B/P Pulse Ox O2 Delivery O2 Flow Rate FiO2 11/03/16 10:45 97.6 63 20 140/82 98 Room Air 97.6 Weight Weight [ ] I.O. Intake and Output Intake and Output 11/03/16 07:00 Intake Total 1300 ml Output Total 0 ml Balance 1300 ml Intake Oral 1300 ml Output Urine Total 0 ml # Bowel Movements 2 Review of Systems Constitutional: yes: no symptom reported Physical Exam General Appearance: no apparent distress Skin: warm Respiratory: bilateral CTA Heart: S1S2, no thrills Abdomen: soft, bowel sounds present Extremities: pulses present, atrophy Neurology: alert Assessment Assessment IMP CONSTIPATION/OBSTIPATION ANEMIA ESRD PLAN HD TOMORROW GI EVAL AND TX WILL FOLLOW KELLY CALHOUN MD Nov 03, 2016 11:13
[2016-11-03] MEDS: OXYCODONE IR 5 MG TABLET. PO PRN ×2 (12:17→16:30)
[2016-11-03] MEDS ORDERED: METHYLNALTREXONE 12 MG/0.6 ML VIAL. SQ ONE (13:00)
[2016-11-03 14:40] VITALS: BP 138/78
[2016-11-03 19:00] VITALS: BP 131/82
[2016-11-03] MEDS: traZODone 50 MG TABLET. PO SCH (21:07)
[2016-11-03] MEDS: ZOLPIDEM 5 MG TABLET. PO SCH (21:07)
[2016-11-03 22:40] VITALS: BP 145/78
--- NOTE | 2016-11-04 01:56 | PN ---
DATE: 11/03/2016 SUBJECTIVE: The patient is resting, slightly propped up in bed, in no apparent distress. His abdomen is less distended than before. He has had a bowel movement yesterday, mostly loose bowel movement. He did have some nausea this morning and he is now on liquid diet. Unfortunately, the oral Relistor and/or the Movantik is not available in the hospital. I will give him 1 more ____ today and hopefully by tomorrow, we can discharge him back to [facility] in [place] and hopefully reauthorize the Movantik and/or the oral Relistor. PHYSICAL EXAMINATION: GENERAL: When I examined him this afternoon, he looked well and was clearly in no apparent respiratory distress, pale, but no jaundice, cyanosis or thyromegaly. No jugular venous distention. No limb edema. VITAL SIGNS: Heart rate is 63, blood pressure was 140/82, temperature was 97.6, respiratory rate was 20, and oxygen saturation was 98%. HEAD, EYES, EARS, NOSE AND THROAT: Showed normocephalic, atraumatic. NECK: Supple. HEART: Showed normal first and second heart sounds. No gallop, rub or murmur. CHEST: Clear to auscultation. No crepitation or rhonchi. ABDOMEN: Distended, but much better, less than before, soft, some tenderness mostly in the left lower quadrant. There is no guarding or rigidity. No organomegaly. Hernial orifices intact. Bowel sounds normal. NEUROLOGIC: He is hard of hearing, otherwise all cranial nerves intact. He moves upper extremities without difficulty, has spina bifida cystica with paraplegia. He is completely anuric and hemodialysis dependent. His intake was 1300, no output was recorded. LABORATORY DATA: No lab work was done this morning. ASSESSMENT: 1. Adynamic colonic ileus due to narcotics. 2. End-stage renal disease, on hemodialysis on Tuesday, Tuesday, Tuesday. 3. Spina bifida cystica with paraplegia and neurogenic bladder for which he has ileal conduit that is nonfunctioning. 4. Seizure disorder. 5. Hyperlipidemia. 6. Hypothyroidism. 7. Iron deficiency anemia. 8. Anxiety and depression. 9. Chronic pain syndrome on multiple narcotics. PLAN: My plan is to give him one more Relistor today and hopefully has more bowel movement and will discharge him back to [facility] tomorrow. WAYLON CONCEPCION MD DR: ADDIE/joe JOB#: [id number] / [id number]
[2016-11-04] MEDS: OXYCODONE IR 5 MG TABLET. PO PRN (02:14)
[2016-11-04 07:00] VITALS: BP 139/83
[2016-11-04] MEDS: PANTOPRAZOLE 40 MG TABLET. PO SCH (08:13)
[2016-11-04] MEDS: FENTANYL 50MCG/HR PATCH. TD SCH (08:13)
[2016-11-04] MEDS: LUBIPROSTONE 8 MCG CAPSULE PO SCH ×2 (08:13→17:11)
[2016-11-04 08:14] LABS: CREATININE 7.6 mg/dL (0.7-1.3); GFR 7.4; POTASSIUM 4.5 mmol/L (3.5-5.1)
[2016-11-04] MEDS ORDERED: IV NORMAL SALINE 1000ML BAG 1,000 ML IV PRN (09:00)
[2016-11-04] MEDS ORDERED: DIALYSIS PATIENT. MC PRN ×2 (09:15)
[2016-11-04] MEDS: ONDANSETRON PF 4 MG/2 ML VIAL. IV PRN (09:20)
[2016-11-04 11:00] VITALS: BP 114/57
--- NOTE | 2016-11-04 12:06 | PDOC ---
Renal-Progress Notes Subjective Notes Notes SAME History of Present Illness Hx of present illness STABLE Vitals Vitals Vital Signs Date Time Temp Pulse Resp B/P Pulse Ox O2 Delivery O2 Flow Rate FiO2 11/04/16 11:00 98.2 73 114/57 98.2 11/04/16 08:13 Room Air 11/04/16 07:00 20 96 Weight Weight [ ] I.O. Intake and Output Intake and Output 11/04/16 07:00 Intake Total 1080 ml Balance 1080 ml Intake Oral 1080 ml # Bowel Movements 2 Labs Labs Laboratory Tests Test 11/04/16 07:46 Sodium Level 142mmol/L (136-145) Potassium Level 4.5mmol/L (3.5-5.1) Chloride Level 100mmol/L (98-107) Carbon Dioxide Level 27mmol/L (21-32) Anion Gap 15 (6-14) Blood Urea Nitrogen 47mg/dL (8-26) Creatinine 7.6mg/dL (0.7-1.3) Estimated GFR (Cockcroft-Gault) 7.4 Glucose Level 86mg/dL (70-99) Calcium Level 8.0mg/dL (8.5-10.1) Review of Systems Constitutional: yes: no symptom reported Physical Exam General Appearance: no apparent distress Skin: warm Respiratory: bilateral CTA Heart: S1S2, no thrills Abdomen: soft, bowel sounds present Extremities: pulses present, atrophy Neurology: alert Assessment Assessment IMP CONSTIPATION/OBSTIPATION ANEMIA ESRD PLAN HD TODAY UF TO [facility] RELISTOR WILL FOLLOW KELLY CALHOUN MD Nov 04, 2016 12:06
[2016-11-04] MEDS ORDERED: MINERAL OIL 133 ML ENEMA. PR ONE (14:00)
--- NOTE | 2016-11-04 14:12 | PDOC ---
G I PROGRESS NOTE Subjective Complains of nausea and vomiting immediately pc. So far has kept lunch down. Stools charted daily; only "small" per him. Cramps after Relistor yesterday and is refusing more. Physical Exam Lungs clear. RRR Abdomen protuberant, not really firm. Subjective diffuse tenderness. Has bowel sounds not too abnormal. Review of Relevant I have reviewed the following items slim (where applicable) has been applied. Labs Laboratory Tests Test 11/04/16 07:46 Sodium Level 142mmol/L (136-145) Potassium Level 4.5mmol/L (3.5-5.1) Chloride Level 100mmol/L (98-107) Carbon Dioxide Level 27mmol/L (21-32) Anion Gap 15 (6-14) Blood Urea Nitrogen 47mg/dL (8-26) Creatinine 7.6mg/dL (0.7-1.3) Estimated GFR (Cockcroft-Gault) 7.4 Glucose Level 86mg/dL (70-99) Calcium Level 8.0mg/dL (8.5-10.1) Laboratory Tests Test 11/04/16 07:46 Sodium Level 142mmol/L (136-145) Potassium Level 4.5mmol/L (3.5-5.1) Chloride Level 100mmol/L (98-107) Carbon Dioxide Level 27mmol/L (21-32) Anion Gap 15 (6-14) Blood Urea Nitrogen 47mg/dL (8-26) Creatinine 7.6mg/dL (0.7-1.3) Estimated GFR (Cockcroft-Gault) 7.4 Glucose Level 86mg/dL (70-99) Calcium Level 8.0mg/dL (8.5-10.1) Medications Current Medications Morphine Sulfate 4 mg PRN Q4HRS PRN IV PAIN Last administered on 11/03/16 14: 48; Start 10/29/16 at 11:15; Stop 11/04/16 at 13:26; Status DC Fentanyl (Duragesic 50mcg/ Hr Patch) 1 patch Q3DAYS TD Last administered on 08:13; Start 10/29/16 at 12:00; Stop 11/04/16 at 13:26; Status DC Ondansetron HCl (Zofran) 4 mg PRN Q4HRS PRN IV NAUSEA/VOMITING Last administered on 11/04/16 09:20; Start 10/29/16 at 11:15 Iohexol (Omnipaque 240 Mg/ml) 40 ml 1X ONCE PO Last administered on 10/29/16 11:30; Start 10/29/16 at 11:30; Stop 10/29/16 at 11:31; Status DC Info (Do NOT chart on this entry -- for MONITORING) 1 each PRN DAILY PRN MC SEE COMMENTS; Start 10/29/16 at 11:30; Stop 10/31/16 at 11:29; Status DC Pantoprazole Sodium (Protonix Vial) 40 mg DAILYAC IVP Last administered on 11/01 05:29; Start 10/31/16 at 07:30; Stop 11/01/16 at 14:25; Status DC Pantoprazole Sodium 40 mg 40 mg 1X ONCE IVP Last administered on 10/30/16 03: 02; Start 10/30/16 at 03:00; Stop 10/30/16 at 03:01; Status DC Sodium Chloride 1,000 ml @ 1,000 mls/hr Q1H PRN IV hypotension; Start 10/30/16 at 08:40; Stop 10/30/16 at 14:39; Status DC Albumin Human (Albuminar) 200 ml @ 200 mls/hr 1X PRN PRN IV Hypotension; Start 10/30/16 at 08:45; Stop 10/30/16 at 14:44; Status DC Acetaminophen (Tylenol) 500 mg 1X PRN PRN PO MILD PAIN / TEMP Last administered on 10/30/16 09:59; Start 10/30/16 at 08:45; Stop 10/30/16 at 19:00 ; Status DC Diphenhydramine HCl (Benadryl) 25 mg 1X PRN PRN IV ITCHING; Start 10/30/16 at 08:45; Stop 10/30/16 at 19:00; Status DC Diphenhydramine HCl (Benadryl) 25 mg 1X PRN PRN IV ITCHING; Start 10/30/16 at 08:45; Stop 10/30/16 at 19:00; Status DC Info (PHARMACY MONITORING -- do not chart) 1 each PRN DAILY PRN MC SEE COMMENTS ; Start 10/30/16 at 08:45 Bisacodyl (Dulcolax Supp) 10 mg PRN DAILY PRN [place] CONSTIPATION; Start 10/30/16 at 13:45 Methylnaltrexone Juda (Relistor) 12 mg 1X ONCE SQ Last administered on 10/30 14:21; Start 10/30/16 at 14:30; Stop 10/30/16 at 14:31; Status DC Ondansetron HCl (Zofran Odt) 4 mg PRN Q4HRS PRN PO NAUSEA/VOMITING; Start 10/30 at 16:00 Oxycodone HCl (Roxicodone) 5 mg PRN Q4HRS PRN PO PAIN Last administered on 11/04 02:14; Start 10/30/16 at 16:00; Stop 11/04/16 at 13:26; Status DC Trazodone HCl (Desyrel) 50 mg QHS PO Last administered on 11/03/16 21:07; Start 10/30/16 at 21:00 Zolpidem Tartrate (Ambien) 5 mg QHS PO Last administered on 11/03/16 21:07; Start 10/30/16 at 21:00 Zolpidem Tartrate (Ambien) 5 mg PRN QHS PRN PO REPEAT DOSE FOR CONT INSOMNIA; Start 10/30/16 at 16:45 Methylnaltrexone Juda (Relistor) 12 mg 1X ONCE SQ ; Start 10/30/16 at 17:15 ; Stop 10/30/16 at 17:15; Status DC Methylnaltrexone Juda (Relistor) 12 mg 1X ONCE SQ Last administered on 10/31 13:19; Start 10/31/16 at 13:30; Stop 10/31/16 at 13:31; Status DC Lubiprostone (Amitiza) 24 mcg BIDWMEALS PO Last administered on 11/04/16 08:13 ; Start 11/01/16 at 08:00 Iohexol (Omnipaque 240 Mg/ml) 50 ml 1X ONCE PO Last administered on 11/01/16 14:00; Start 11/01/16 at 14:00; Stop 11/01/16 at 14:01; Status DC Iohexol (Omnipaque 300 Mg/ml) 75 ml 1X ONCE IV Last administered on 11/01/16 14:58; Start 11/01/16 at 14:00; Stop 11/01/16 at 14:01; Status DC Pantoprazole Sodium (Protonix) 40 mg DAILYAC PO Last administered on 11/04/16 08:13; Start 11/02/16 at 07:30 Methylnaltrexone Juda 12 mg 12 mg PRN Q48HR PRN SQ no stool Last administered on 11/02/16 20:11; Start 11/02/16 at 12:45 Sodium Chloride 1,000 ml @ 1,000 mls/hr Q1H PRN IV hypotension; Start 11/02/16 at 14:43; Stop 11/02/16 at 20:42; Status DC Sodium Chloride (Iv Sodium Chloride 0.9% 1000ml Bag) 1,000 ml @ 400 mls/hr Q2H30M PRN IV PATENCY; Start 11/02/16 at 14:43; Stop 11/03/16 at 02:42; Status DC Info (PHARMACY MONITORING -- do not chart) 1 each PRN DAILY PRN MC SEE COMMENTS ; Start 11/02/16 at 14:45; Status UNV Methylnaltrexone Juda 12 mg 12 mg 1X ONCE SQ Last administered on 14:47; Start 11/03/16 at 13:00; Stop 11/03/16 at 13:01; Status DC Sodium Chloride (Iv Sodium Chloride 0.9% 1000ml Bag) 1,000 ml @ 1,000 mls/hr Q1H PRN IV hypotension; Start 11/04/16 at 09:00; Stop 11/04/16 at 16:00 Info (PHARMACY MONITORING -- do not chart) 1 each PRN DAILY PRN MC SEE COMMENTS ; Start 11/04/16 at 09:15; Status UNV Info (PHARMACY MONITORING -- do not chart) 1 each PRN DAILY PRN MC SEE COMMENTS ; Start 11/04/16 at 09:15; Status UNV Mineral Oil (Fleet Mineral Oil) 133 ml 1X ONCE [place] ; Start 11/04/16 at 14:00; Stop 11/04/16 at 14:01; Status DC Active Scripts Active Famotidine 20 Mg Tablet 20 Mg PO BID 14 Days Reported Bisacodyl 5 Mg Tablet.dr 5 Mg PO Q12HR PRN Abilify (Aripiprazole) 5 Mg Tablet 7.5 Mg PO DAILY Zolpidem Tartrate 10 Mg Tablet 1 Tab PO QHS Zoloft (Sertraline Hcl) 100 Mg Tablet 2 Tab PO DAILY Tylenol (Acetaminophen) 325 Mg Tablet 650 Mg PO Q6HRS Trazodone Hcl 50 Mg Tablet 1 Tab PO QHS Reglan (Metoclopramide Hcl) 10 Mg Tablet 5 Mg PO TID Calcium Acetate 667 Mg Tablet 667 Mg PO TIDWMEALS Oxycodone HCl ER (Oxycodone HCl) 40 Mg Tab.er.12h 40 Mg PO TID Omeprazole 20 Mg Capsule.dr 1 Cap PO DAILY Norvasc (Amlodipine Besylate) 5 Mg Tablet 1 Tab PO BID Nitrostat (Nitroglycerin) 0.4 Mg Tab.subl 0.4 Mg SL PRN Q10MIN PRN Nephro-Dangelo Tablet (Folic Acid/Vitamin B Comp W-C) 0.8 Mg Tablet 1 Tab PO DAILY Mirtazapine 15 Mg Tablet 1 Tab PO QHS Miralax (Polyethylene Glycol 3350) 17 Gm Powd.pack 1 Packet PO BID Anti-Diarrheal (Loperamide Hcl) 2 Mg Capsule 2 Mg PO Q4HRS Lidocaine-Prilocaine Cream (Lidocaine/Prilocaine) 30 Gm Cream..g. 1 Adrienne TP UD Levothyroxine Sodium 75 Mcg Tablet 1 Tab PO DAILY FENTANYL 50mcg/hr (Fentanyl) 1 Each Patch.td72 1 Patch TP Q3DAYS Cymbalta (Duloxetine Hcl) 60 Mg Capsule.dr 60 Mg PO DAILY Cymbalta (Duloxetine Hcl) 30 Mg Capsule.dr 1 Cap PO DAILY Clonidine Hcl 0.1 Mg Tablet 0.1 Mg PO DAILY Clonazepam 2 Mg Tablet 1 Tab PO QHS Calcium Carbonate 650 Mg Tablet 1,000 Mg PO QHS Vitals/I & O Vital Sign - Last 24 Hours 11/03/16 11/03/16 11/03/16 11/03/16 14:40 19:00 20:00 22:40 Temp 94.6 99.0 99.0 94.6 99.0 99.0 Pulse 55 74 67 Resp 20 18 18 B/P 138/78 131/82 145/78 Pulse Ox 100 100 99 O2 Delivery Room Air Room Air Room Air Room Air 11/04/16 11/04/16 11/04/16 11/04/16 02:14 03:15 07:00 07:45 Temp 97.7 97.7 Pulse 74 Resp 20 20 20 B/P 139/83 Pulse Ox 93 96 O2 Delivery Room Air Room Air Room Air 11/04/16 11/04/16 08:13 11:00 Temp 98.2 98.2 Pulse 73 B/P 114/57 O2 Delivery Room Air Intake and Output 11/03/16 11/03/16 11/04/16 15:00 23:00 07:00 Intake Total 540 ml 240 ml 300 ml Balance 540 ml 240 ml 300 ml Problem List Problems Medical Problems: (1) Ascites Status: Acute (2) ESRD (end stage renal disease) on dialysis Status: Acute Assessment Paraplegic/narcotic bowel. Plan of Care: Continue current Tx, Mgmt Plan of Care Note Relistor is all we have for OIC. Am sure this plays a role. Maybe needs daily , though refusing. Nausea and vomiting; note on Reglan. Maybe suspension will be better. Continue PPI. Check AIXA MURILLO MD Nov 04, 2016 14:12
[2016-11-04] MEDS ORDERED: METOCLOPRAMIDE HCL 10 MG/10 ML SOLUTION. PO PRN (14:15)
[2016-11-04 14:29] VITALS: BP 104/66
[2016-11-04] MEDS ORDERED: METHYLNALTREXONE 12 MG/0.6 ML VIAL. SQ PRN (14:30)
--- NOTE | 2016-11-04 15:34 | RAD ---
Portable abdomen, 11/04/2016: History: Abdominal pain, distention, necrotic use There is a moderate amount of gas in large and small bowel in a nonspecific pattern. There is a moderate amount stool in the left colon and rectosigmoid. Surgical clips are present in the upper abdomen. There is no evidence of organomegaly. Chronic bilateral hip dislocations are present. There is a surgical plate and screws related to the proximal right femur. There is a mild left convexity lumbar scoliosis. IMPRESSION: Moderate amount of gas and stool in the colon again suggesting an atonic colon.
[2016-11-04] MEDS: METOCLOPRAMIDE HCL 10 MG/10 ML SOLUTION. PO SCH ×2 (17:11→21:16)
[2016-11-04 19:00] VITALS: BP 137/62
[2016-11-04] MEDS: ACETAMINOPHEN 325 MG TABLET. PO PRN (20:27)
[2016-11-04] MEDS: traZODone 50 MG TABLET. PO SCH (21:16)
[2016-11-04] MEDS: ZOLPIDEM 5 MG TABLET. PO SCH (21:16)
[2016-11-04 23:00] VITALS: BP 140/70
--- NOTE | 2016-11-05 01:26 | PN ---
DATE: 11/04/2016 SUBJECTIVE: The patient continued to complain of abdominal pain ____ not really much improvement with the Relistor yesterday, continued to have abdominal distention. I explained to him that I am going to stop all pain medications and will use enemas to treat his severe constipation. PHYSICAL EXAMINATION: GENERAL: When I examined him, he looked well, slightly pale, but no jaundice, cyanosis, or thyromegaly. No jugular venous distention. No limb edema. VITAL SIGNS: His heart rate was 73, blood pressure was 114/57, temperature was 98.2, respiratory rate was 18 and oxygen saturation was 96%. The rest of clinical examination is stable and has not really changed. ASSESSMENT: 1. Adynamic colonic ileus due to narcotics. 2. End-stage renal disease, on hemodialysis Tuesday, , Tuesday. 3. Spina bifida cystica with paraplegia and neurogenic bladder for which he has an ileal conduit that is not functioning. 4. Seizure disorder. 5. Hyperlipidemia. 6. Hypothyroidism. 7. Iron deficiency anemia. 8. Anxiety and depression. 9. Chronic pain syndrome, on multiple narcotics. PLAN: To discontinue all his pain medications. We will start him on mineral oil enemas and decide on further management accordingly. WAYLON CONCEPCION MD DR: ADDIE/joe JOB#: [id number] / [id number]
[2016-11-05 03:00] VITALS: BP 117/58
[2016-11-05] MEDS: PANTOPRAZOLE 40 MG TABLET. PO SCH (06:09)
[2016-11-05] MEDS: METOCLOPRAMIDE HCL 10 MG/10 ML SOLUTION. PO SCH ×2 (06:09→11:18)
[2016-11-05 07:00] VITALS: BP 130/90
[2016-11-05] MEDS: LUBIPROSTONE 8 MCG CAPSULE PO SCH (08:37)
--- NOTE | 2016-11-05 09:15 | PDOC ---
G I PROGRESS NOTE Subjective Says nausea better. Refusing Relistor. Had stool(s) after bisacodyl supp. Objective Noted he was on metoclopramide at home and restarted. Indication unclear; gastroparesis? Physical Exam Lungs clear. RRR Abdomen seems may be some softer. Review of Relevant I have reviewed the following items slim (where applicable) has been applied. Labs Laboratory Tests Test 11/04/16 07:46 Sodium Level 142mmol/L (136-145) Potassium Level 4.5mmol/L (3.5-5.1) Chloride Level 100mmol/L (98-107) Carbon Dioxide Level 27mmol/L (21-32) Anion Gap 15 (6-14) Blood Urea Nitrogen 47mg/dL (8-26) Creatinine 7.6mg/dL (0.7-1.3) Estimated GFR (Cockcroft-Gault) 7.4 Glucose Level 86mg/dL (70-99) Calcium Level 8.0mg/dL (8.5-10.1) Medications Current Medications Morphine Sulfate 4 mg PRN Q4HRS PRN IV PAIN Last administered on 11/03/16 14: 48; Start 10/29/16 at 11:15; Stop 11/04/16 at 13:26; Status DC Fentanyl (Duragesic 50mcg/ Hr Patch) 1 patch Q3DAYS TD Last administered on 08:13; Start 10/29/16 at 12:00; Stop 11/04/16 at 13:26; Status DC Ondansetron HCl (Zofran) 4 mg PRN Q4HRS PRN IV NAUSEA/VOMITING Last administered on 11/04/16 09:20; Start 10/29/16 at 11:15 Iohexol (Omnipaque 240 Mg/ml) 40 ml 1X ONCE PO Last administered on 10/29/16 11:30; Start 10/29/16 at 11:30; Stop 10/29/16 at 11:31; Status DC Info (Do NOT chart on this entry -- for MONITORING) 1 each PRN DAILY PRN MC SEE COMMENTS; Start 10/29/16 at 11:30; Stop 10/31/16 at 11:29; Status DC Pantoprazole Sodium (Protonix Vial) 40 mg DAILYAC IVP Last administered on 11/01 05:29; Start 10/31/16 at 07:30; Stop 11/01/16 at 14:25; Status DC Pantoprazole Sodium 40 mg 40 mg 1X ONCE IVP Last administered on 10/30/16 03: 02; Start 10/30/16 at 03:00; Stop 10/30/16 at 03:01; Status DC Sodium Chloride 1,000 ml @ 1,000 mls/hr Q1H PRN IV hypotension; Start 10/30/16 at 08:40; Stop 10/30/16 at 14:39; Status DC Albumin Human (Albuminar) 200 ml @ 200 mls/hr 1X PRN PRN IV Hypotension; Start 10/30/16 at 08:45; Stop 10/30/16 at 14:44; Status DC Acetaminophen (Tylenol) 500 mg 1X PRN PRN PO MILD PAIN / TEMP Last administered on 10/30/16 09:59; Start 10/30/16 at 08:45; Stop 10/30/16 at 19:00 ; Status DC Diphenhydramine HCl (Benadryl) 25 mg 1X PRN PRN IV ITCHING; Start 10/30/16 at 08:45; Stop 10/30/16 at 19:00; Status DC Diphenhydramine HCl (Benadryl) 25 mg 1X PRN PRN IV ITCHING; Start 10/30/16 at 08:45; Stop 10/30/16 at 19:00; Status DC Info (PHARMACY MONITORING -- do not chart) 1 each PRN DAILY PRN MC SEE COMMENTS ; Start 10/30/16 at 08:45 Bisacodyl (Dulcolax Supp) 10 mg PRN DAILY PRN [place] CONSTIPATION Last administered on 11/04/16 17:44; Start 10/30/16 at 13:45 Methylnaltrexone [place] (Relistor) 12 mg 1X ONCE SQ Last administered on 10/30 14:21; Start 10/30/16 at 14:30; Stop 10/30/16 at 14:31; Status DC Ondansetron HCl (Zofran Odt) 4 mg PRN Q4HRS PRN PO NAUSEA/VOMITING Last administered on 11/04/16 21:16; Start 10/30/16 at 16:00 Oxycodone HCl (Roxicodone) 5 mg PRN Q4HRS PRN PO PAIN Last administered on 11/04 02:14; Start 10/30/16 at 16:00; Stop 11/04/16 at 13:26; Status DC Trazodone HCl (Desyrel) 50 mg QHS PO Last administered on 11/04/16 21:16; Start 10/30/16 at 21:00 Zolpidem Tartrate (Ambien) 5 mg QHS PO Last administered on 11/04/16 21:16; Start 10/30/16 at 21:00 Zolpidem Tartrate (Ambien) 5 mg PRN QHS PRN PO REPEAT DOSE FOR CONT INSOMNIA; Start 10/30/16 at 16:45 Methylnaltrexone [place] (Relistor) 12 mg 1X ONCE SQ ; Start 10/30/16 at 17:15 ; Stop 10/30/16 at 17:15; Status DC Methylnaltrexone [place] (Relistor) 12 mg 1X ONCE SQ Last administered on 10/31 13:19; Start 10/31/16 at 13:30; Stop 10/31/16 at 13:31; Status DC Lubiprostone (Amitiza) 24 mcg BIDWMEALS PO Last administered on 11/05/16 08:37 ; Start 11/01/16 at 08:00 Iohexol (Omnipaque 240 Mg/ml) 50 ml 1X ONCE PO Last administered on 11/01/16 14:00; Start 11/01/16 at 14:00; Stop 11/01/16 at 14:01; Status DC Iohexol (Omnipaque 300 Mg/ml) 75 ml 1X ONCE IV Last administered on 11/01/16 14:58; Start 11/01/16 at 14:00; Stop 11/01/16 at 14:01; Status DC Pantoprazole Sodium (Protonix) 40 mg DAILYAC PO Last administered on 11/05/16 06:09; Start 11/02/16 at 07:30 Methylnaltrexone [place] 12 mg 12 mg PRN Q48HR PRN SQ no stool Last administered on 11/02/16 20:11; Start 11/02/16 at 12:45; Stop 11/04/16 at 14:17 ; Status DC Sodium Chloride 1,000 ml @ 1,000 mls/hr Q1H PRN IV hypotension; Start 11/02/16 at 14:43; Stop 11/02/16 at 20:42; Status DC Sodium Chloride (Iv Sodium Chloride 0.9% 1000ml Bag) 1,000 ml @ 400 mls/hr Q2H30M PRN IV PATENCY; Start 11/02/16 at 14:43; Stop 11/03/16 at 02:42; Status DC Info (PHARMACY MONITORING -- do not chart) 1 each PRN DAILY PRN MC SEE COMMENTS ; Start 11/02/16 at 14:45; Status UNV Methylnaltrexone [place] 12 mg 12 mg 1X ONCE SQ Last administered on 14:47; Start 11/03/16 at 13:00; Stop 11/03/16 at 13:01; Status DC Sodium Chloride (Iv Sodium Chloride 0.9% 1000ml Bag) 1,000 ml @ 1,000 mls/hr Q1H PRN IV hypotension; Start 11/04/16 at 09:00; Stop 11/04/16 at 16:00; Status DC Info (PHARMACY MONITORING -- do not chart) 1 each PRN DAILY PRN MC SEE COMMENTS ; Start 11/04/16 at 09:15; Status UNV Info (PHARMACY MONITORING -- do not chart) 1 each PRN DAILY PRN MC SEE COMMENTS ; Start 11/04/16 at 09:15; Status UNV Mineral Oil (Fleet Mineral Oil) 133 ml 1X ONCE [place] Last administered on 15:20; Start 11/04/16 at 14:00; Stop 11/04/16 at 14:01; Status DC Methylnaltrexone [place] (Relistor) 12 mg DAILY PRN SQ no stool; Start at 14:30 Metoclopramide HCl (Reglan) 5 mg PRN Q6HRS PRN PO NAUSEA/VOMITING; Start at 14:15; Stop 11/04/16 at 14:18; Status DC Metoclopramide HCl (Reglan) 5 mg QIDACHS PO Last administered on 11/05/16 06: 09; Start 11/04/16 at 16:30 Acetaminophen (Tylenol) 650 mg PRN Q6HRS PRN PO MILD PAIN / TEMP Last administered on 3/16/17at 20:27; Start 11/04/16 at 18:45 Active Scripts Active Famotidine 20 Mg Tablet 20 Mg PO BID 14 Days Reported Bisacodyl 5 Mg Tablet.dr 5 Mg PO Q12HR PRN Abilify (Aripiprazole) 5 Mg Tablet 7.5 Mg PO DAILY Zolpidem Tartrate 10 Mg Tablet 1 Tab PO QHS Zoloft (Sertraline Hcl) 100 Mg Tablet 2 Tab PO DAILY Tylenol (Acetaminophen) 325 Mg Tablet 650 Mg PO Q6HRS Trazodone Hcl 50 Mg Tablet 1 Tab PO QHS Reglan (Metoclopramide Hcl) 10 Mg Tablet 5 Mg PO TID Calcium Acetate 667 Mg Tablet 667 Mg PO TIDWMEALS Oxycodone HCl ER (Oxycodone HCl) 40 Mg Tab.er.12h 40 Mg PO TID Omeprazole 20 Mg Capsule.dr 1 Cap PO DAILY Norvasc (Amlodipine Besylate) 5 Mg Tablet 1 Tab PO BID Nitrostat (Nitroglycerin) 0.4 Mg Tab.subl 0.4 Mg SL PRN Q10MIN PRN Nephro-Dangelo Tablet (Folic Acid/Vitamin B Comp W-C) 0.8 Mg Tablet 1 Tab PO DAILY Mirtazapine 15 Mg Tablet 1 Tab PO QHS Miralax (Polyethylene Glycol 3350) 17 Gm Powd.pack 1 Packet PO BID Anti-Diarrheal (Loperamide Hcl) 2 Mg Capsule 2 Mg PO Q4HRS Lidocaine-Prilocaine Cream (Lidocaine/Prilocaine) 30 Gm Cream..g. 1 Adrienne TP UD Levothyroxine Sodium 75 Mcg Tablet 1 Tab PO DAILY FENTANYL 50mcg/hr (Fentanyl) 1 Each Patch.td72 1 Patch TP Q3DAYS Cymbalta (Duloxetine Hcl) 60 Mg Capsule. 60 Mg PO DAILY Cymbalta (Duloxetine Hcl) 30 Mg Capsule.dr 1 Cap PO DAILY Clonidine Hcl 0.1 Mg Tablet 0.1 Mg PO DAILY Clonazepam 2 Mg Tablet 1 Tab PO QHS Calcium Carbonate 650 Mg Tablet 1,000 Mg PO QHS Vitals/I & O Vital Sign - Last 24 Hours 11/04/16 11/04/16 11/04/16 11/04/16 11:00 14:29 19:00 20:26 Temp 98.2 98.9 98.8 98.2 98.9 98.8 Pulse 73 87 109 Resp 20 20 B/P 114/57 104/66 137/62 Pulse Ox 95 95 O2 Delivery Room Air Room Air 11/04/16 11/05/16 11/05/16 23:00 03:00 07:00 Temp 99.5 98.9 98.9 99.5 98.9 98.9 Pulse 92 84 87 Resp 20 18 20 B/P 140/70 117/58 130/90 Pulse Ox 96 96 95 O2 Delivery Room Air Intake and Output 11/04/16 11/04/16 11/05/16 15:00 23:00 07:00 Intake Total 180 ml 380 ml Output Total 1 ml Balance 180 ml 380 ml -1 ml Problem List Problems Medical Problems: (1) Ascites Status: Acute (2) ESRD (end stage renal disease) on dialysis Status: Acute Assessment Spinal/narcotic constipation. Now refusing Relistor. Amitiza seems not much effect. Nausea better on Reglan. Plan of Care: Continue current Tx, Mgmt Plan of Care Note Drop Amitiza and try Linzess as refusing Relistor. Continue prn bisacodyl supps. I'm off the weekend. Dr. Zoltan byrd. AIXA POOLE MD Nov 05, 2016 09:15
[2016-11-05] MEDS ORDERED: LINACLOTIDE 145 MCG CAPSULE. PO SCH (09:30)
[2016-11-05] MEDS: ONDANSETRON PF 4 MG/2 ML VIAL. IV PRN (10:10)
[2016-11-05] MEDS: ACETAMINOPHEN 325 MG TABLET. PO PRN (10:16)
[2016-11-05 10:50] VITALS: BP 116/52
--- NOTE | 2016-11-05 11:26 | PDOC ---
Renal-Progress Notes Subjective Notes Notes NOTHING NEW History of Present Illness Hx of present illness NO CHANGE Vitals Vitals Vital Signs Date Time Temp Pulse Resp B/P Pulse Ox O2 Delivery O2 Flow Rate FiO2 11/05/16 10:50 99.1 97 20 116/52 94 Room Air 99.1 Weight Weight [ ] I.O. Intake and Output Intake and Output 11/05/16 07:00 Intake Total 560 ml Output Total 1 ml Balance 559 ml Intake Oral 560 ml Stool Total 1 ml # Voids 1 # Bowel Movements 3 Review of Systems Constitutional: yes: no symptom reported Physical Exam General Appearance: no apparent distress Skin: warm Respiratory: bilateral CTA Heart: S1S2, no thrills Abdomen: soft, bowel sounds present Extremities: pulses present, atrophy Neurology: alert Assessment Assessment IMP CONSTIPATION/OBSTIPATION ANEMIA ESRD PLAN HD TOMORROW GI NOTE REVIEWED WILL FOLLOW KELLY CALHOUN MD Nov 05, 2016 11:26
[2016-11-05] MEDS ORDERED: LINA145C PO (13:32)
[2016-11-05] MEDS ORDERED: DOCU-27 PO (13:32)
[2016-11-05 14:36] VITALS: BP 130/76
--- NOTE | 2016-11-06 00:56 | DS ---
DATE OF DISCHARGE: 11/05/2016 HOSPITAL COURSE: The patient is a 61-year-old male patient who was admitted with abdominal distention, recurrent bouts of nausea, vomiting and diarrhea initially and then constipation. We did a CT scan of the abdomen and it did show that he has moderate distention of the colon with gas and stool in the ____ suggestive of an atonic colon, mild dilatation of the distal small bowel. We tried Relistor ____ and the oral Relistor is not available. So, he did have some response with Relistor, but he is refusing it. We tried the Amitiza, but he continued to develop nausea and vomiting and he had some stools after bisacodyl suppositories and basically, I explained to the patient that his problem is because of the narcotics and we did discontinue all his narcotics yesterday including his fentanyl and oxycodone. He will be discharged on bisacodyl suppositories daily as well as ____ Linzess 145 mg daily. He should continue with all other medications and we will decide on further management accordingly. PHYSICAL EXAMINATION: GENERAL: When I saw him today, he looked well and was clearly in no apparent respiratory distress. He did vomit this morning, but apparently, he has tolerated his lunch this afternoon. When I saw him, he looked well and was clearly in no apparent respiratory distress. No jaundice, cyanosis or thyromegaly. No jugular venous distention. No limb edema. VITAL SIGNS: His heart rate was 97, blood pressure was 116/52, temperature was 99.1, respiratory rate was 20 and oxygen saturation was 94%. HEAD, EYES, EARS, NOSE AND THROAT: Normocephalic, atraumatic. NECK: Supple. HEART: Showed normal first and second heart sounds. No gallop, rub or murmur. CHEST: Clear to auscultation. No crepitation or rhonchi. ABDOMEN: Distended, soft, much less distended than yesterday. Mild tenderness in the left lower quadrant. No guarding or rigidity. No organomegaly. All hernial orifices intact. Bowel sounds are ____ not audible. NEUROLOGIC: He is awake, alert, responding appropriately. He is very hard of hearing and visually impaired. All other cranial nerves are intact. He moves his upper extremities without difficulty, has spina bifida cystica with end-stage renal failure, on hemodialysis. LABORATORY DATA: Showed that his chemistries are variable; he is hemodialysis dependent. His white cell count was 6800, hemoglobin 11, hematocrit 33, MCV 106 and platelet count of 139,000. DISPOSITION: The patient will be discharged back to [facility], to continue with all medications. I discontinued his fentanyl patch, his loperamide and oxycodone 40 mg 3 times a day. He will continue on all other medications. I added Linzess and daily bisacodyl suppository. Will continue obviously with his MiraLax and Colace and we will decide on further management accordingly. FINAL DISCHARGE DIAGNOSES: 1. Opioid-induced constipation. 2. End-stage renal failure, on hemodialysis Tuesday, Tuesday, Tuesday. 3. Spina bifida cystica with paraplegia. 4. Seizure disorders. 5. Hyperlipidemia. 6. Hypothyroidism. 7. Iron deficiency anemia. 8. Anxiety and depression. 9. Chronic pain syndrome. WAYLON CONCEPCION MD DR: ADDIE/joe JOB#: [id number] / [id number]
== END 2016-11-05 14:55 | DRG 388 ==
LOC: 5 SOUTH 09:21
PROVIDERS: ADMIT Internal Medicine; ATTEND Internal Medicine
PROC: 5A1D60Z (ICD-10-PCS; principal; 2016-10-30)
DX: K56.7 Ileus, unspecified (principal); N18.6 End stage renal disease; I12.0 Hypertensive chronic kidney disease with stage 5 chronic kidney disease or end stage renal disease; G82.20 Paraplegia, unspecified; R18.8 Other ascites; K56.60 Unspecified intestinal obstruction; D50.9 Iron deficiency anemia, unspecified; D63.8 Anemia in other chronic diseases classified elsewhere; E03.9 Hypothyroidism, unspecified; E78.5 Hyperlipidemia, unspecified; F32.9 Major depressive disorder, single episode, unspecified; F41.9 Anxiety disorder, unspecified; G40.909 Epilepsy, unspecified, not intractable, without status epilepticus; G89.4 Chronic pain syndrome; K21.9 Gastro-esophageal reflux disease without esophagitis; K59.03 Drug induced constipation; N31.9 Neuromuscular dysfunction of bladder, unspecified; R79.1 Abnormal coagulation profile; T40.2X5A Adverse effect of other opioids, initial encounter; Z82.3 Family history of stroke; Q05.9 Spina bifida, unspecified; Z87.891 Personal history of nicotine dependence; Z90.5 Acquired absence of kidney; Z99.2 Dependence on renal dialysis; Z88.1 Allergy status to other antibiotic agents; Z90.49 Acquired absence of other specified parts of digestive tract; Z88.8 Allergy status to other drugs, medicaments and biological substances; Z93.6 Other artificial openings of urinary tract status; Z79.899 Other long term (current) drug therapy
CPT/HCPCS: 36415; 36569; 74000; 74176; 74177; 80048; 80053; 82947; 83605; 83615; 84443; 85027; 85610; 85730; 87641; C9113; J2212; J2270; J2405; J8597; Q0162; Q9966; Q9967

== ENCOUNTER 2017-01-01 09:45 | Inpatient (IN) | payer MEDICARE, OTHER ==
[~2017-01-01] VITALS: Ht 154.9 cm; Wt 77.1 kg
[~2017-01-01 09:45] MED LIST changes: +ACET325T9 PO; +AMLO5TAB4 PO; +ARIP5TAB6 PO; +BISA5TAB4 PO; +CALC650T6 PO; +CALC667T PO; +CLON0.1T PO; +CLON2TAB2 PO; +DOCU-27 PO; +DULO30CA2 PO; +DULO60CA6 PO; +FENT1PAT17 TP; +FOLI0.8T3 PO; +LEVO75TA5 PO; +LIDO30CR TP; +LINA145C PO; +LOPE2CAP3 PO; +METO10TA81 PO; +MIRT15TA3 PO; +NITR0.4T SL; +OMEP20CA9 PO; +OXYC40TA26 PO; +POLY17PO29 PO; +SERT100T PO; +TRAZ50TA15 PO; +ZOLP10TA4 PO
--- NOTE | 2017-01-01 10:10 | PHYS DOC ---
Past Medical History Past Medical History: Anemia, Anxiety, Depression, GERD, High Cholesterol, Hypertension, Renal Disease Additional Past Medical Histor: spina bifida- paraplegia, thyroid disease, insomnia, Dialysis Past Surgical History: Appendectomy, Cholecystectomy Additional Past Surgical Histo: stoma to abdomen, L kidney removed, ? bladder removed, hiatal hernia Alcohol Use: None Drug Use: None Adult General Chief Complaint Chief Complaint: CHEST PAIN HPI HPI Patient is a 61 year old male brought by EMS from dialysis. He started dialysis at 6:30 this morning and then a couple of hours into it he developed trouble breathing and pain in the center of his chest. He was noted to have a low blood pressure and also he felt weak. He was transported by EMS. He was not given nitroglycerin because his pressure was low. He was given a dose of aspirin. The patient has not had this type of pain or symptoms previously during dialysis. He did have a similar episode about a year ago, they checked it out and he says they didn't think it was his heart. He has no history of [place], no history of heart problems to his knowledge. He has been on dialysis a long time and usually dialyzes on Tuesday and Tuesday without difficulty. States right now he is still having some chest pain but it has let up some. It' s located right in the center of his chest and does not radiate. It worsens with a deep breath and he feels a bit short of breath. He does have constipation, he wears a fentanyl patch for chronic pain. He has not had a BM today. He took MiraLAX and also a pill for opioid constipation yesterday but it has not worked yet. He lives in a group home, his doctor is Dr. Concepcion. Review of Systems Review of Systems Constitutional: Denies fever or chills [] HENT: Denies nasal congestion or sore throat [] Respiratory: Denies cough Cardiovascular: As in history of present illness GI: As in history of present illness Musculoskeletal: Denies back pain or joint pain [] Integument: Denies rash or skin lesions [] Neurologic: He does have spina bifida Allergies Allergies Allergies Coded Allergies Type Severity Reaction Last Updated Verified Sulfa (Sulfonamide Antibiotics) Allergy Intermediate 03/08/16 Yes amoxicillin Allergy Intermediate 03/08/16 Yes gabapentin Allergy Intermediate 03/08/16 Yes pregabalin Allergy Intermediate 03/08/16 Yes Physical Exam Physical Exam Constitutional: Well developed, well nourished, no acute distress, non-toxic appearance. Alert, mentating normally, no diaphoresis, color is good. HENT: Normocephalic, atraumatic, bilateral external ears normal, nose normal. [ ] Eyes: conjunctiva normal, no discharge. [] Neck: Normal range of motion, no stridor. [] Cardiovascular:Heart rate regular rhythm, no murmur [] Lungs & Thorax: Bilateral breath sounds clear to auscultation [] Chest wall: Tender to palpation over the mid sternum. No swelling, no deformity. Abdomen: Distended and fairly tense. Increased tympany throughout. Mildly tender to palpation throughout, nonlocalized. Skin: Warm, dry, no erythema, no rash. [] Extremities: No tenderness, no cyanosis, no clubbing, ROM intact, no edema. [] Neurologic: Alert and oriented X 3, normal baseline motor function with lower extremity chronic spina bifida abnormality, normal sensory function, no focal deficits noted. [] Current Patient Data Vital Signs Vital Signs Date Time Temp Pulse Resp B/P (MAP) Pulse Ox O2 Delivery O2 Flow Rate FiO2 01/01/17 10:15 74 16 95/67 (76) 95 Room Air 01/01/17 09:54 98.3 98.3 Lab Values Laboratory Tests Test 01/01/17 10:30 White Blood Count 6.0 x10^3/uL (4.0-11.0) Red Blood Count 3.69 x10^6/uL (4.30-5.70) L Hemoglobin 12.7 g/dL (13.0-17.5) L Hematocrit 38.2 % (39.0-53.0) L Mean Corpuscular Volume 104 fL (79-100) H Mean Corpuscular Hemoglobin 34 pg (25-35) Mean Corpuscular Hemoglobin Concent 33 g/dL (31-37) Red Cell Distribution Width 14.2 % (11.5-14.5) Platelet Count 142 x10^3/uL (140-400) Neutrophils (%) (Auto) 81 % (31-73) H Lymphocytes (%) (Auto) 9 % (24-48) L Monocytes (%) (Auto) 8 % (0-9) Eosinophils (%) (Auto) 1 % (0-3) Basophils (%) (Auto) 0 % (0-3) Neutrophils # (Auto) 4.9 x10^3uL (1.8-7.7) Lymphocytes # (Auto) 0.6 x10^3/uL (1.0-4.8) L Monocytes # (Auto) 0.5 x10^3/uL (0.0-1.1) Eosinophils # (Auto) 0.1 x10^3/uL (0.0-0.7) Basophils # (Auto) 0.0 x10^3/uL (0.0-0.2) Prothrombin Time 12.5 SEC (11.7-14.0) Prothrombin Time INR 1.0 (0.8-1.1) Sodium Level 138 mmol/L (136-145) Potassium Level 3.8 mmol/L (3.5-5.1) Chloride Level 98 mmol/L (98-107) Carbon Dioxide Level 25 mmol/L (21-32) Anion Gap 15 (6-14) H Blood Urea Nitrogen 26 mg/dL (8-26) Creatinine 3.8 mg/dL (0.7-1.3) H Estimated GFR (Cockcroft-Gault) 16.4 Glucose Level 98 mg/dL (70-99) Calcium Level 8.8 mg/dL (8.5-10.1) Magnesium Level 1.9 mg/dL (1.8-2.4) Total Bilirubin 0.7 mg/dL (0.2-1.0) Direct Bilirubin 0.1 mg/dL (0.0-0.2) Aspartate Amino Transferase (AST) 9 U/L (15-37) L Alanine Aminotransferase (ALT) 14 U/L (16-63) L Alkaline Phosphatase 154 U/L (46-116) H Creatine Kinase 39 U/L (39-308) Creatine Kinase MB (Mass) 0.9 ng/mL (0.0-3.6) Creatine Kinase MB Relative Index % (0-4) Troponin I Quantitative < 0.017 ng/mL (0.000-0.055) CD-Beb-M-Type Natriuretic Peptide 2011 pg/mL (0-124) H Total Protein 7.7 g/dL (6.4-8.2) Albumin 3.8 g/dL (3.4-5.0) Lipase 87 U/L (73-393) Laboratory Tests 01/01/17 10:30 Laboratory Tests 01/01/17 10:30 EKG EKG 12-lead EKG read by me. Sinus rhythm. Heart rate 77. There are no acute ST or T wave changes indicative of ischemia or infarction. No STEMI. 0953 [] Radiology/Procedures Radiology/Procedures Acute abdomen series read by the radiologist and reviewed by me. Feces and air distended:, Probable colonic ileus. No acute findings. [] Course & Med Decision Making Course & Med Decision Making Pertinent Labs and Imaging studies reviewed. (See chart for details) 61-year-old male dialysis patient presents by EMS for low blood pressure and chest pain with shortness of air that began during dialysis. He usually has dialysis 3 days a week and has not had this type of problem in the past during dialysis. No known history of coronary artery disease. Additionally noted his abdomen is very bloated and distended, that may be contributing or causing his symptoms as well. Advised the patient we will check some labs and x-rays, initial EKG is normal, he is agreeable to that plan. Labs unremarkable for acute findings. Chest x-ray shows a large amount of intestinal gas under the left hemidiaphragm. Abdomen series shows a large amount of intestinal gas throughout. I believe the patient's symptoms are likely explained by his intestinal bloating and distention with gas under the hemidiaphragm. The patient requires daily opiates for chronic pain. I suspect he has a large amount of stool in his colon and needs to have laxative therapy to clean out his colon for his gas distention. I discussed this with the patient. He is on a daily fluid restriction of 32 ounces. He does not make urine. This is going to be difficult logistically for him to use MiraLAX especially since his next dialysis is not due until Thursday 01/04. He also did not complete his dialysis run this morning because his symptoms developed. I am recommending that the patient be hospitalized to have regularly dosed MiraLAX to get his colon cleaned out which I believe will help his abdominal and chest pain symptoms. Then he will need to have dialysis tomorrow to prevent being fluid overloaded. I discussed this with Dr. Key, on-call for nephrology, who agrees with this plan. I spoke with Dr. Concepcion, patient's primary care physician, who will admit him to the hospital. I wrote bridge orders. [] Dragon Disclaimer Dragon Disclaimer This electronic medical record was generated, in whole or in part, using a voice recognition dictation system. Departure Departure Impression: Primary Impression: Chest pain Additional Impression: Abdominal pain Disposition: 09 ADMITTED INPATIENT Admitting Physician: Geraldine Concepcion Condition: STABLE Referrals: GERALDINE CONCEPCION MD (PCP) Problem Qualifiers SVETLANA CONLEY MD January 01, 2017 10:10
[2017-01-01 10:44] LABS: BASO % 0 % (0-3); EOS % 1 % (0-3); HEMATOCRIT 38.2 % (39.0-53.0); HEMOGLOBIN 12.7 g/dL (13.0-17.5); LYMPH # 0.6 x10^3/uL (1.0-4.8); LYMPH % 9 % (24-48); MEAN CORPUSCULAR HEMOGLOBIN 34 pg (25-35); MEAN CORPUSCULAR HGB CONC 33 g/dL (31-37); MEAN CORPUSCULAR VOLUME 104 fL (79-100); MONO % 8 % (0-9); NEUT % 81 % (31-73); PLATELET COUNT 142 x10^3/uL (140-400); RED BLOOD COUNT 3.69 x10^6/uL (4.30-5.70); RED CELL DISTRIBUTION WIDTH 14.2 % (11.5-14.5)
[2017-01-01 10:52] LABS: PROTHROMBIN TIME PATIENT 12.5 SEC (11.7-14.0)
[2017-01-01 10:53] LABS: CALCIUM 8.8 mg/dL (8.5-10.1); CREATININE 3.8 mg/dL (0.7-1.3); GFR 16.4; POTASSIUM 3.8 mmol/L (3.5-5.1)
[2017-01-01] MEDS ORDERED: LOPE2TAB27 PO (10:53)
[2017-01-01] MEDS ORDERED: FENT1PAT17 TP (10:53)
[2017-01-01] MEDS ORDERED: CALC200T3 PO (10:53)
--- NOTE | 2017-01-01 10:56 | RAD ---
Examination: Acute abdomen series History: History of abdominal distention, mid chest pain during dialysis, hypertension Comparison: None available Findings: The cardiomediastinal silhouette grossly appears unremarkable. There is no acute infiltrate or visualized pneumothorax. Feces and gas noted throughout the colon. Impression: 1. Feces and air distended colon throughout probable colonic ileus. 2. No acute cardiopulmonary findings.
[2017-01-01 10:59] LABS: ALBUMIN 3.8 g/dL (3.4-5.0); DIRECT BILIRUBIN 0.1 mg/dL (0.0-0.2); MAGNESIUM 1.9 mg/dL (1.8-2.4); TOTAL BILIRUBIN 0.7 mg/dL (0.2-1.0); TOTAL PROTEIN 7.7 g/dL (6.4-8.2)
[2017-01-01 11:20] LABS: CKMB MASS 0.9 ng/mL (0.0-3.6); CREATINE KINASE 39 U/L (39-308)
--- NOTE | 2017-01-01 11:21 | EKG ---
[facility] [address] [place] [address] Test Date: 2017-01-01 Test Time: 09:53:05 Pat Name: EDWARD DOOLEY Department: Room: Gender: M Combination Operator: : 1955 Requested By: SVETLANA CONLEY Order Number: [id number] Reading MD: Jarvis Nixon Measurements Intervals [place] Rate: 77 P: 33 CO: 154 QRS: 24 QRSD: 92 T: 62 QT: 396 QTc: 450 Interpretive Statements SINUS RHYTHM Electronically Signed On 01-03-2017 14:57:35 CDT by Jarvis Nixon
[2017-01-01] MEDS ORDERED: PEG 3350/NA SULF,BICARB,CL/KCL 4,000 ML SOLUTION. PO ONE (12:30)
--- NOTE | 2017-01-01 13:01 | ACF ---
Admission Forms Criteria CARDIOLOGY GRG Clinical Indications for Admission to Inpatient Care ( Place 'X' for any and all applicable criteria): Hospital admission is needed for appropriate care of the patient because of ANY ONE of the following (1): [ ] I. Hemodynamic instability as indicated by ALL of the following (1)(2)(3) (4)(5) [ ]a) Vital signs or other findings not as expected for chronic patient condition or baseline [ ]b) Instability indicated by ANY ONE of the following: [ ]i) Hypotension [ ]ii) Symptomatic Tachycardia unresponsive to treatment ( e.g., analgesia, fluids, sedation as indicated) [ ]iii) Inadequate perfusion indicated by ANY ONE of the following: [ ] 1) Lactic acidosis (> 2 mmol/L) [ ] 2) New abnormal capillary refill (> 3 seconds) [ ] 3) Reduced urine output [ ] 4) New altered mental status [ ]iv) Orthostatic vital sign changes unresponsive to treatment (e.g., fluids) [ ]v) IV inotropic or vasopressor medication required to maintain adequate blood pressure or perfusion [ ] II. Severe heart failure as indicated by ANY ONE of the following(17)(18) [ ]a) Respiratory distress [ ]b) Hypotension [ ]c) Anasarca (refractory to outpatient therapy) [ ]d) Cardiac arrhythmias of immediate concern [ ]e) Myocardial ischemia [ ] III. Cardiac arrhythmias or findings of immediate concern indicated by ANY ONE of the following (19)(20): [ ] a) Heart rhythms that are inherently dangerous or unstable indicated by ANY ONE of the following (21)(22)(23): [ ] i) Resuscitated ventricular fibrillation or cardiac arrest [ ] ii) Ventricular escape rhythm [ ] iii) Sustained ventricular tachycardia (30 seconds or more of ventricular rhythm at greater than 100 beats per minute) [ ] iv) Nonsustained ventricular tachycardia and ANY ONE of the following: [ ] 1) Suspected cardiac ischemia as cause or consequence of ventricular tachycardia [ ] 2) In setting of acute myocarditis [ ] b) Unstable cardiac conduction defects indicated by ANY ONE of the following(23)(24)(25) [ ] i) Type II second-degree atrioventricular block [ ]ii) Third-degree atrioventricular block [ ]iii) New-onset left bundle branch block with suspected myocardial ischemia [ ]c) Any heart rhythm and ANY ONE of the following (21)(22)(26)(27) (28) [ ] i) Continuous long-term ECG monitoring needed (e.g., initiation of drug requiring monitoring for more than 24 hours) [ ] ii) Patient has automatic implanted cardioverter defibrillator that is repeatedly firing, malfunctioning, or in need of immediate adjustment of settings beyond the scope of ambulatory or observation care [ ]d) Heart rhythms of concern due to ANY ONE of the following: [ ] i) Hypotension [ ] ii) Respiratory distress [ ] iii) Association with other significant symptoms (e.g., bradycardia with syncope or ongoing dizziness, supraventricular tachycardia with chest pain (14)(15)(17) [ ] IV. Monitoring for cardiac contusion beyond the scope of observation care needed [A](30)(31)(32) [ ] V. Surgical or device complication (e.g., valve replacement complication , pacemaker dysfunction) (35)(41)(44)(45)(46) [ ] . Inpatient palliative care needed. [B](49) Also use Inpatient Palliative Care Criteria [ ] VII. Nonbacterial thrombotic (marantic) endocarditis (36)(43)(47)(48) [X] VIII. Cardiology condition, symptom, or finding for which emergency and observation care has failed or are not considered appropriate. [ ] IX. Acute valvular disease requiring inpatient as indicated by ANY ONE of the following (41) [ ]a) Acute valvular regurgitation (42) [ ]b) Noninfectious valvulitis (43) [ ]c) Obstructive valve thrombosis [ ]d) Paravalvular leak [ ]e) Other significant valvular disorder remaining after emergency or observation level of care (as appropriate) [ ]X. Pericardial disease requiring inpatient treatment as indicated by ANY ONE of the following (33)(34)(35)(36)(37) [ ]a) Suspected tamponade (38)(39)(40) [ ]b) Hemopericardium [ ]c) Other significant pericardial disorder remaining after emergency or observation level of care (as appropriate) [ ] XI. Cardiac ischemia beyond scope of emergency and observation care. [ ] XII. Hypertension requiring inpatient treatment as indicated by ANY ONE of the following (6)(7)(8) [ ]a) SBP greater than 220 mm Hg or DBP greater than 120 mmHg despite treatment [ ]b) SBP greater than 140 mm Hg or DBP greater than 100 mm Hg with evidence of acute end organ damage as indicated by ANY ONE of the following [ ] i) Encephalopathy [ ] ii) Acute renal failure as indicated by new onset of ANY ONE of the following (9)(10)(11)(12)(13) [ ]1) 3-fold rise in serum creatinine from baseline [ ]2) Serum creatinine greater than 4 mg/dL ( 354 micromoles/L) with acute rise greater than 0.5 mg/dL (44.2 micromoles/L) [ ]3) Reduction of more than 75% in estimated glomerular filtration rate from baseline [ ]4) Estimated glomerular filtration rate less than 35 mL/min/1.73m2 (0.59 mL/sec/1.73m2) in child up to 18 years of age [ ]5) Cessation of urine output indicated by ALL of the following [ ]A. Adequate volume status [ ]B. Inadequate urine output as indicated by ANY ONE of the following [ ]a. Urine output less than 0.3 mL/kg/hr for 24 hours [ ]b. Anuria (urine output less than 0.1 mL/kg/hr) for 12 hours [ ] iii) Aortic dissection [ ] iv) Myocardial Ischemia [ ] v) Left ventricular heart failure [ ]vi) Retinal Hemorrhage [ ]vii) Other significant finding [ ]c) Hypertension in child requiring inpatient treatment as indicated by ALL of the following(14)(15)(16) [ ] i) Outpatient treatment not effective, not available, or not appropriate [ ]ii) SBP or DBP greater than 95th percentile for age [ ]iii) Evidence of acute end organ damage as indicated by ANY ONE of the following [ ]1) Altered mental status [ ]2) Acute renal failure as indicated by new onset of ANY ONE of the following(9)(10)(11)(12)(13) [ ]A. 3-fold rise in serum creatinine from baseline [ ]B. Serum creatinine greater than 4 mg/dL (354 micromoles/L) with acute rise greater than 0.5 mg/dL (44.2 micromoles/L) [ ]C. Reduction of more than 75% in estimated glomerular filtration rate from baseline [ ]D. Estimated glomerular filtration rate less than 35 mL/min/1.73m2 (0.59 mL/sec/1.73m2) in child up to 18 years of age [ ]E. Cessation of urine output indicated by ALL of the following [ ]a. Adequate volume status [ ]b. Inadequate urine output as indicated by ANY ONE of the following [ ]i) Urine output less than 0.3 mL/kg/hr for 24 hours [ ]ii) Anuria ( urine output less than 0.1 mL/kg/hr) for 12 hours [ ]3) Severe headache [ ]4) Visual disturbance [ ]5) Retinal hemorrhage [ ]6) Other significant finding [ ]XIII. Complications of transplanted heart indicated by ANY ONE of the following(61): [ ]a) Acute graft rejection requiring inpatient management (eg, intravenous immunosuppression)(62)(63) [ ]b) Acute graft heart failure indicated by ANY ONE of the following(64): [ ]i) Hemodynamic instability [ ]ii) Cardiac arrhythmias of immediate concern [ ]iii) Pulmonary edema that is very severe (eg, mechanical ventilation needed, imminent or likely, need for 100% oxygen to keep oxygen saturation above 90%) [ ]iv) Pulmonary edema that is persistent as indicated by ALL of the following: [ ]1) New need for oxygen therapy to keep oxygen saturation above 90% (or increased FiO2 need from baseline) [ ]2) Has not improved sufficiently with emergency department or observation care IV diuretics or other heart failure treatments[E] [ ]v) Altered mental status that is severe or persistent [ ]vi) Increased creatinine (new on laboratory test) with reduction of more than 50% in estimated glomerular filtration rate from baseline [ ]vii) Progressively (ongoing) rising creatinine (known from past laboratory test) with reduction of more than 25% in estimated glomerular filtration rate from baseline [ ]viii) Acute renal failure [ ]ix) Acute peripheral ischemia (eg, examination shows pulseless, cool, mottled, or cyanotic extremity) [ ]x) Pulmonary artery catheter monitoring needed [ ]xi) Other sign or symptom of heart failure requiring inpatient treatment (ie, too severe or not responsive to outpatient and observation care treatment) [ ]c) Infection requiring inpatient management (eg, Hemodynamic instability, need for intravenous antimicrobial treatment)(66)(67)(68)(69)(70) [ ]d) Cardiac allograft vasculopathy requiring inpatient management ( eg evidence of cardiac ischemia)(71) [ ]e) Other complication of transplanted heart (eg, stroke, severe pulmonary hypertension, severe valvular dysfunction) requiring inpatient management(72) The original [facility] [employer] content created by [facility] has been revised. The portions of the content which have been revised are identified through the use of italic text or in bold, and [facility] has neither reviewed nor approved the modified material. All other unmodified content is copyright [facility]. Please see references footnoted in the original [facility] [employer] edition 2016 ]IX. General contraindications and/or Inappropriate clinical situations for Observational Care in patients with Chest Pain, when ANY ONE of the following is required: [ ]a) Prediction of prolongation of LOS based on ANY ONE of the following may be considered as a contraindication for observational care 2, 3, 4, 5, 6, 7, 8, 9, 10, 11 [ ]i) Age > 65 yrs. [ ]ii) Patient arriving by ambulance [ ]iii) Patient with high acuity [ ]iv) Patient requiring vital sign monitoring [ ]v) Patient on IV medication [ ]b) Systolic blood pressures 180mmHg 3,12 [ ]c) Patient with altered mental status including delirium and other alteration of consciousness, (3) [ ]d) Patient whose discharge disposition will be to a senior living home or rehabilitation home should not be managed in Emergency Department Observation Unit. CMS rule requires 3 days hospital stay before such placement. 3,13 [ ]e) Patient with failure to thrive due to broad array of etiologies 3,16,17 [ ]f) Inability to ambulate 3,14 Extended stay beyond goal length of stay may be needed for (1)(28): [ ]a) Specific condition diagnosed after evaluation (eg, pulmonary embolism, aortic dissection) [ ]b) Unstable angina [ ]c) Continued suspicion of acute coronary syndrome with inability to complete needed cardiac evaluation (eg, patient clinically unable to undergo stress testing) [ ]d) Myocardial infarction (Contents from ANGINA and CHEST PAIN clinical indications for admission to inpatient care have been integrated in this form) The original [facility] [employer] content created by [employer] has been revised. The portions of the content which have been revised are identified through the use of italic text or in bold, and [facility] has neither reviewed nor approved the modified material. All other unmodified content is copyright [facility]. Please see references footnoted in the original [facility] edition 2016 Admission Criteria Met?: Yes DANIEL WALKER January 01, 2017 13:01
[2017-01-01 13:15] VITALS: BP 94/72
[2017-01-01] MEDS ORDERED: POLYETHYLENE GLYCOL 3350 238 GM POWDER PO ONE (14:00)
[2017-01-01 15:00] VITALS: BP 120/71
[2017-01-01] MEDS ORDERED: BISACODYL 10 MG SUPP.RECT. PR ONE (16:45)
[2017-01-01] MEDS ORDERED: METHYLNALTREXONE 12 MG/0.6 ML VIAL. SQ ONE (16:45)
[2017-01-01] MEDS: fentaNYL PF VIAL 100 MCG/2 ML VIAL IV PRN ×2 (16:59→20:15)
[2017-01-01 19:00] VITALS: BP 130/83
[2017-01-01] MEDS: traZODone 50 MG TABLET. PO SCH (20:14)
[2017-01-01 23:00] VITALS: BP 139/87
[2017-01-02] MEDS: fentaNYL PF VIAL 100 MCG/2 ML VIAL IV PRN ×5 (01:25→21:45)
[2017-01-02 03:00] VITALS: BP 138/79
[2017-01-02] MEDS: ONDANSETRON PF 4 MG/2 ML VIAL. IV PRN ×4 (06:03→21:47)
[2017-01-02 07:00] VITALS: BP 137/89
[2017-01-02] MEDS: SERTRALINE 50 MG TABLET. PO SCH (08:53)
[2017-01-02 11:00] VITALS: BP 142/82
[2017-01-02] MEDS ORDERED: BISACODYL 5 MG TABLET.DR. PO PRN (11:15)
[2017-01-02] MEDS ORDERED: NITROGLYCERIN SUBLINGUAL 0.4 MG BOTTLE OF 25. SL PRN (11:15)
[2017-01-02] MEDS ORDERED: ZOLPIDEM 5 MG TABLET. PO PRN (11:45)
[2017-01-02] MEDS ORDERED: DULoxetine HCL 30 MG CAPSULE.DR PO SCH ×2 (12:00)
[2017-01-02] MEDS ORDERED: METHYLNALTREXONE 12 MG/0.6 ML VIAL. SQ ONE (12:00)
[2017-01-02] MEDS ORDERED: FAMOTIDINE 20 MG TABLET. PO SCH (12:00)
[2017-01-02] MEDS ORDERED: LINACLOTIDE 145 MCG CAPSULE. PO SCH (12:00)
[2017-01-02] MEDS: PANTOPRAZOLE 40 MG TABLET.DR. PO SCH (12:12)
[2017-01-02] MEDS: ACETAMINOPHEN 325 MG TABLET. PO SCH ×3 (12:12→23:13)
[2017-01-02] MEDS: LEVOTHYROXINE 75 MCG TABLET PO SCH (12:12)
[2017-01-02] MEDS: DOCUSATE SODIUM 100 MG CAPSULE. PO SCH ×2 (12:12→21:26)
[2017-01-02] MEDS: cloNIDine HCL 0.1 MG TABLET PO SCH (12:12)
[2017-01-02] MEDS: POLYETHYLENE GLYCOL 3350 17 GM PACKET. PO SCH ×2 (12:12→21:26)
[2017-01-02] MEDS: ARIPiprazole 5 MG TABLET PO SCH (12:13)
[2017-01-02] MEDS: FOLIC/VIT B COMP W-C (RENAL) TABLET. PO SCH (12:14)
[2017-01-02] MEDS: CALCIUM ACETATE 667 MG CAPSULE PO SCH ×2 (12:14→17:06)
[2017-01-02] MEDS: amLODIPine BESYLATE 5 MG TABLET PO SCH ×2 (12:14→21:00)
[2017-01-02] MEDS: METOCLOPRAMIDE 10 MG TABLET. PO SCH ×2 (12:15→17:07)
--- NOTE | 2017-01-02 14:02 | EKG ---
[facility] [address] [place] [address] Test Date: 2017-01-02 Test Time: 12:55:21 Pat Name: EDWARD DOOLEY Department: Room: 400 1 Gender: M Contact Lens Inspector: JACQUI : 1955 Requested By: WAYLON CONCEPCION Order Number: [id number] Reading MD: Jarvis Nixon Measurements Intervals [place] Rate: 81 P: 47 [place]: 168 QRS: 29 QRSD: 90 T: 49 QT: 368 QTc: 428 Interpretive Statements SINUS RHYTHM Electronically Signed On 01-04-2017 10:37:32 CDT by Jarvis Nixon
[2017-01-02] MEDS ORDERED: IV NORMAL SALINE 1000ML BAG 1,000 ML IV PRN (14:52)
[2017-01-02] MEDS ORDERED: DIALYSIS PATIENT. MC PRN ×2 (15:00)
--- NOTE | 2017-01-02 15:47 | PDOC ---
GI PROGRESS NOTES Date Date/Time DATE: 01/02/17 TIME: 15:45 Subjective Subjective chest and abd pain- improved after BM Objective Vitals Vital Signs Date Time Temp Pulse Resp B/P (MAP) Pulse Ox O2 Delivery O2 Flow Rate FiO2 01/02/17 12:14 86 142/82 01/02/17 12:12 86 142/82 01/02/17 11:00 98.9 86 18 142/82 (102) 94 Room Air 98.9 01/02/17 10:45 16 94 Room Air 01/02/17 10:15 20 94 Room Air 01/02/17 08:00 Room Air 01/02/17 07:00 98.6 95 16 137/89 (105) 94 Room Air 98.6 01/02/17 06:07 20 94 Room Air 01/02/17 03:00 97.6 74 16 138/79 (98) 94 Room Air 97.6 01/02/17 01:25 20 98 Room Air 01/01/17 23:00 98.5 69 18 139/87 (104) 98 Room Air 98.5 01/01/17 20:15 20 98 Room Air 01/01/17 19:33 Room Air 01/01/17 19:00 98.3 81 20 130/83 (99) 98 Room Air 98.3 01/01/17 16:59 18 Room Air Labs Labs Laboratory Tests Test 01/02/17 11:10 Troponin I Quantitative < 0.017 ng/mL (0.000-0.055) Assessment Assessment full consult dictated chest paina dn abd pain- improved after several BM overnight after given Relistor- constipation is chronic and multifactorial- but opioid therapy is a major contributor- he relates he si on pill form of relistor but not on med list Plan- confirm he is on either relistor or Movantik daily increase linzess to 290 daily Problems: ROSENDO YOUNG MD January 02, 2017 15:47
--- NOTE | 2017-01-02 19:02 | HP ---
ADMIT DATE: 01/01/2017 HISTORY OF PRESENT ILLNESS: The patient is a 61-year-old male patient who apparently was brought by the emergency medical services from dialysis unit, start dialysis at 6:30 yesterday morning and did a couple of hours later, he developed trouble breathing and pain in his center of the chest. He was noted to have a low blood pressure and also he felt weak. He was brought to the Emergency Room of [facility]. He did not receive any nitroglycerin because his blood pressure was low. He was given dose of aspirin. The patient has not had this type of pain symptoms previously during dialysis. He did have a similar episode about a year ago. At that time, they checked ____ without and says that it did not think it was his heart. He has no history of myocardial infarction, no history of heart problems to his knowledge. He normally dialyzes for about 4 hours and has been on dialysis for a long time usually on Tuesday, and Tuesday without difficulty. His chest pain was mostly in the center of his chest, does not radiate. It is worse with deep breath and feels short of breath. He apparently also complained of constipation and was admitted before for similar problems due to opioid-induced constipation. In fact, he was on Relistor. He was investigated in the Emergency Room, was found to have on the acute abdomen series, the cardiomediastinal silhouette is grossly appeared unremarkable. There is no acute infiltrate or visualized pneumothorax; however, the feces and gas noted throughout the colon. He was given MiraLax. He was admitted for acute care and given MiraLax as well as Relistor and Dulcolax suppository. PAST MEDICAL HISTORY: Significant for hypertension, end-stage renal disease, spina bifida cystica with paraplegia, seizure disorder, chronic pain syndrome, hyperlipidemia, hypothyroidism, iron deficiency anemia, anxiety and depression. PAST SURGICAL HISTORY: Significant for appendectomy, cholecystectomy, suprapubic catheter placement, nephrectomy, urethrostomy ____ and incisional hernia repair. ALLERGIES: HE IS ALLERGIC TO AMOXICILLIN, GABAPENTIN, LYRICA, AND SULFA DRUGS. MEDICATIONS: He is currently on following medications: He is on Tylenol 650 mg every 6 hours as needed, amlodipine besylate 5 mg once a day, aripiprazole or Abilify 7.5 mg once a day, bisacodyl 5 mg tablet twice a day, calcium acetate 667 mg 3 times a day with meals, calcium carbonate 1000 mg at bedtime, calcium carbonate or Tums 500 mg at bedtime, clonazepam 2 mg at bedtime, clonidine 0.1 mg daily, Colace 100 mg twice a day, duloxetine 30 mg once a day and duloxetine 60 mg once a day, famotidine 20 mg twice a day, folic acid with vitamin B complex 1 tablet once a day, levothyroxine sodium 75 mcg once a day, lidocaine, prilocaine cream applied topically for dialysis and linaclotide or Linzess 145 mcg p.o. daily, loperamide 2 mg q.i.d. as needed for diarrhea, metoclopramide 10 mg 3 times a day, mirtazapine 15 mg at bedtime, nitroglycerin 0.4 mg sublingually as needed every 5 minutes, omeprazole 20 mg daily, polyethylene glycol 17 grams twice a day, sertraline 100 mg or Zoloft 100 mg once a day, trazodone 50 mg at bedtime and Ambien 10 mg at bedtime. FAMILY HISTORY: Positive for CVA in his mother. SOCIAL HISTORY: Single, never , has no children. He used to be an ex-smoker, does not currently smoke, drink alcohol or use any recreational drugs. REVIEW OF SYSTEMS: As per history of present illness. PHYSICAL EXAMINATION: GENERAL: On arrival to the Emergency Room, the patient was slightly pale, but no jaundice, cyanosis, or thyromegaly. No jugular venous distention. No limb edema. VITAL SIGNS: His heart rate was 78, blood pressure was 105/59, temperature was 98.3, respiratory rate was 18 and oxygen saturation was 98% on room air. HEAD, EYES, EARS, NOSE AND THROAT: Showed normocephalic, atraumatic. NECK: Supple. HEART: Showed normal first and second heart sounds with no gallop, rub or murmur. CHEST: Clear to auscultation. No crepitation or rhonchi. ABDOMEN: Distended, soft, nontender. There is some tenderness mostly in the left lower quadrant and also in the right lower quadrant. There is no guarding or rigidity. No organomegaly. Hernial orifices intact. Bowel sounds normal. NEUROLOGIC: He is awake, alert, responding appropriately. Cranial nerves intact. EXTREMITIES: He moves all extremities ____ paraplegia due to spina bifida cystica. LABORATORY DATA: On admission showed that his white cell count was 6000, hemoglobin 12.7, hematocrit 30, MCV 104, and platelet count of 142,000. His serum sodium was 138, potassium 3.8, chloride 98, bicarbonate 25, anion gap of 15, BUN 26, creatinine 3.8, glucose was 98, calcium was 8.8, magnesium 1.9. Total bilirubin, AST, ALT were normal. Alkaline phosphatase slightly elevated. His beta natriuretic peptide was 2000; however, his first set of cardiac enzymes showed troponin to be less than 0.017. His prothrombin time was 12.5, INR 1. His acute abdomen series, showed that the cardiomediastinal silhouette is grossly appears unremarkable. There is no acute infiltrates or visualized pneumothorax, feces and gas noted throughout the colon. The patient was given Relistor 12 mg subcutaneously once as well as bisacodyl and MiraLax. We will do 2 more sets of cardiac enzymes and 12-lead EKG and his EKG yesterday showed that was in sinus rhythm with no acute ST-T changes in the critical ischemia or infarction. WAYLON CONCEPCION MD DR: ADDIE/joe JOB#: [id number] / [id number]
[2017-01-02 19:30] VITALS: BP 95/57
--- NOTE | 2017-01-02 21:23 | PN ---
DATE: 01/02/2017 SUBJECTIVE: The patient is resting, slightly propped up in bed, still complaining of abdominal distention, abdominal pain and nausea, but no vomiting. He did have multiple bowel movements yesterday after he received MiraLax, Relistor and Dulcolax suppository; however, his abdomen continues to be distended. PHYSICAL EXAMINATION: GENERAL: When I examined him, he looked pale, no jaundice, cyanosis, or thyromegaly. No jugular venous distention. No limb edema. VITAL SIGNS: Her heart rate was 95, blood pressure was 137/89, temperature was 98.6, respiratory rate was 16 and oxygen saturation was 94%. HEAD, EYES, EARS, NOSE AND THROAT: Showed normocephalic, atraumatic. NECK: Supple. HEART: Showed normal first and second heart sounds with no gallop, rub or murmur. CHEST: Clear to auscultation. No crepitation or rhonchi. ABDOMEN: Distended, soft, tenderness mostly in the left and right lower quadrant. No guarding or rigidity. No organomegaly. Hernial orifices intact. Bowel sounds normal. NEUROLOGIC: He is awake, alert, responding appropriately. Cranial nerves intact. He moves his upper extremities without difficulty. Has paraplegia secondary to spina bifida cystica. His intake and output are incompletely recorded. LABORATORY DATA: Showed that his chemistry ____ as he is hemodialysis dependent. His white cell count was 6000, hemoglobin 12.7, hematocrit 38.2, MCV 104 and platelet count of 142,000. ASSESSMENT: Opioid-induced constipation has responded well yesterday to Relistor, MiraLax and Dulcolax suppository. I will repeat the Relistor and Dulcolax again today. I reconciled all his medications. He should continue back on his Colace, MiraLax and Amitiza. I will repeat his x-ray and of some of his lab work tomorrow. WAYLON CONCEPCION MD DR: ADDIE/joe JOB#: [id number] / [id number]
[2017-01-02] MEDS: CALCIUM CARBONATE 500 MG TABLET PO SCH (21:26)
[2017-01-02] MEDS: CALCIUM CARBONATE 500 MG TAB.CHEW PO SCH (21:26)
[2017-01-02] MEDS: clonazePAM 1 MG TABLET PO SCH (21:27)
[2017-01-02] MEDS: traZODone 50 MG TABLET. PO SCH (21:27)
[2017-01-02] MEDS: ZOLPIDEM 5 MG TABLET. PO SCH (21:27)
--- NOTE | 2017-01-02 22:21 | CONS ---
DATE OF CONSULTATION: REASON FOR CONSULTATION: Renal failure. HISTORY OF PRESENT ILLNESS: This is a 61-year-old gentleman who is at dialysis, developed difficulty breathing and chest discomfort. He is currently admitted for further evaluation of the same. The patient is on fentanyl patch for chronic pain and has ongoing problems with constipation. Much of his issues were felt to be related to ____ constipation. He did not complete his dialysis on the day of admission. PAST MEDICAL HISTORY: Spina bifida, hypothyroidism, hypertension, end-stage renal disease hemodialysis dependent, anemia of chronic kidney disease, secondary hyperparathyroidism, renal disease, GE reflux disease, hyperlipidemia, anxiety, depression, cholecystectomy, appendectomy, vascular access placement, abdominal stoma, left nephrectomy, hiatal hernia. ALLERGIES: AMOXICILLIN, SULFA, GABAPENTIN, PREGABALIN. MEDICATIONS: Reviewed. FAMILY HISTORY: Noncontributory. SOCIAL HISTORY: He resides with assistance. REVIEW OF SYSTEMS: No headaches, sinus problem, nasal drainage, epistaxis, change in vision or hearing, no difficulty swallowing. No fever, chills, cough, sputum production, or hemoptysis. No chest pain, shortness of breath, PND or orthopnea, dyspnea on exertion. No further abdominal pain. No nausea, vomiting, diarrhea or seizures. PHYSICAL EXAMINATION: GENERAL: The patient awake, conversant. HEENT: Clear. NECK: No increased JVD. No thyromegaly, mass or adenopathy. LUNGS: Clear. CARDIAC: Without S3 or rub. ABDOMEN: Distended, nontender, no bruits. EXTREMITIES: Spina bifida. NEUROPSYCHIATRIC: Spina bifida. LABORATORY DATA: Hemoglobin 12.7, hematocrit 38%. Potassium 3.8, CO2 25, creatinine 3.8, GFR 16.4. IMPRESSION: End-stage renal disease, hemodialysis dependent, , and Tuesday, incomplete treatment. RECOMMENDATIONS: Proceed with dialysis today and back to schedule Tuesday, and Tuesday. AIXA WEBBER MD DR: DEVAN/joe JOB#: [id number] / [id number]
--- NOTE | 2017-01-02 22:58 | CONS ---
DATE OF CONSULTATION: PRIMARY CARE PHYSICIAN: Geraldine Luo M.D. CHIEF COMPLAINT: Abdominal and chest pain, severe constipation. HISTORY OF PRESENT ILLNESS: This is a 61-year-old gentleman with a long history of end-stage renal disease, on dialysis. He also has a history of constipation in part related to his paraplegia and chronic pain management with fentanyl. It is not clear when his last colonoscopy was. He presents now with trouble breathing and pain in the chest and upper abdomen and was sent for further evaluation. A plain film showed significant amount of gas and stool under his diaphragms and it was supposed that might be the source of his symptoms. He was given Relistor injection and had numerous bowel movements and has improvement in his abdominal symptoms. He relates that he has been given the pill form of Relistor at the nursing facility, but it is not on the list of medicines that were sent with him. He is on Linzess, but is only taking 145 mcg dosing along with MiraLax daily. He describes that he has a bowel movement every couple of days, but it is not a complete bowel movement, but he has had very little in the way of severe abdominal complaints until recently. His bowel pattern is every couple of days for the most part without bleeding. He has a relatively intact appetite. He has history of ureteral stoma to the abdomen. PAST MEDICAL HISTORY: 1. Spina bifida with paraplegia. 2. End-stage renal disease, on dialysis. 3. Anemia. 4. Anxiety and depression. 5. GERD. 6. Chronic constipation, likely opioid related. 7. Hypertension. PAST SURGICAL HISTORY: Appendectomy, cholecystectomy, kidney removal and apparently bladder removed with an ileal conduit as reported. SOCIAL HISTORY: Does not smoke or drink. He is in a facility and gets dialysis regularly. REVIEW OF SYSTEMS: CONSTITUTIONAL: Chest discomfort as mentioned above, weakness. No fever or chills. HEENT: No headache or blurred vision. PULMONARY: No shortness of breath, productive cough. CARDIOVASCULAR: Chest discomfort as mentioned above. GENITOURINARY: He is anuric and is on dialysis, has an ostomy, likely an ileal conduit. MUSCULOSKELETAL: Denies acute arthritis. SKIN: Denies or pruritus or jaundice. NEUROLOGIC: He has spina bifida with paraplegia. PHYSICAL EXAMINATION: VITAL SIGNS: He is afebrile. His blood pressure is 142/82, his pulse is 86, he is on dialysis presently with a respiratory rate of 18. He is anicteric. CHEST: Clear. HEART: Regular rate and rhythm. ABDOMEN: Slightly distended. Bowel sounds are present, soft, nontender. No organomegaly or masses. RECTAL: Deferred. EXTREMITIES: No cyanosis or clubbing. NEUROLOGIC: He is awake and alert, on dialysis. He is paraplegic. LABORATORY AND IMAGING DATA: He had x-ray of his abdomen showing feces and air distending throughout the colon, probably a colonic ileus. Laboratories reveal hemoglobin of 12.7, white blood cell count of 6000. Electrolytes are normal. BUN 26, creatinine 3.8. Liver function studies are normal except for an alkaline phosphatase elevated at 154. CPK and troponin levels were negative, but BNP is elevated at 2011. Lipase normal at 87. ASSESSMENT: Chest discomfort and abdominal discomfort, probably consistent with his chronic constipation that worsened recently. The pattern of his bowel movements has not changed that dramatically, but the x-ray is suspicious that he may have been retaining a lot of stool and just had a tipping point this week. He is significantly relieved after getting a Relistor injection. He relates that he is on the pill form of Relistor, but it is not on his list of medicines that was provided. Certainly, with his history, combination therapy with single-dose MiraLax, a higher dose of Linzess and the use of an opioid-induced constipation medication such as oral Relistor or oral Movantik would certainly be appropriate chronically. We need to make sure this is the case in the nursing facility. PLAN: 1. Increase the dose of Linzess from 145 to 290, continue MiraLax and Movantik or Relistor orally if available. 2. No further GI suggestions at this time, but need to continue to monitor these symptoms. 3. We will discuss later in the outpatient setting whether colonoscopy or other interventions are necessary or appropriate for this gentleman. ROSENDO YOUNG MD DR: AMANDA/joe JOB#: [id number] / [id number]
[2017-01-02 23:00] VITALS: BP 89/51
[2017-01-03] MEDS: fentaNYL PF VIAL 100 MCG/2 ML VIAL IV PRN ×5 (01:49→22:52)
[2017-01-03 03:00] VITALS: BP 104/66
[2017-01-03 03:05] LABS: CALCIUM 9.4 mg/dL (8.5-10.1); CREATININE 4.2 mg/dL (0.7-1.3); GFR 14.6; POTASSIUM 4.2 mmol/L (3.5-5.1)
[2017-01-03] MEDS: ACETAMINOPHEN 325 MG TABLET. PO SCH ×3 (06:00→17:42)
[2017-01-03 07:00] VITALS: BP 96/60
[2017-01-03] MEDS: LINACLOTIDE 145 MCG CAPSULE. PO SCH (08:51)
[2017-01-03] MEDS: POLYETHYLENE GLYCOL 3350 17 GM PACKET. PO SCH ×2 (08:51→20:33)
[2017-01-03] MEDS: FOLIC/VIT B COMP W-C (RENAL) TABLET. PO SCH (08:51)
[2017-01-03] MEDS: SERTRALINE 50 MG TABLET. PO SCH (08:52)
[2017-01-03] MEDS: DOCUSATE SODIUM 100 MG CAPSULE. PO SCH ×2 (08:52→20:32)
[2017-01-03] MEDS: DULoxetine HCL 30 MG CAPSULE.DR PO SCH (08:52)
[2017-01-03] MEDS: PANTOPRAZOLE 40 MG TABLET.DR. PO SCH (08:52)
[2017-01-03] MEDS: CALCIUM ACETATE 667 MG CAPSULE PO SCH ×3 (08:53→17:42)
[2017-01-03] MEDS: METOCLOPRAMIDE 10 MG TABLET. PO SCH ×3 (08:53→17:42)
[2017-01-03] MEDS: LEVOTHYROXINE 75 MCG TABLET PO SCH (08:54)
[2017-01-03] MEDS: ARIPiprazole 5 MG TABLET PO SCH (08:56)
[2017-01-03] MEDS: amLODIPine BESYLATE 5 MG TABLET PO SCH ×2 (08:57→20:33)
[2017-01-03] MEDS: cloNIDine HCL 0.1 MG TABLET PO SCH ×2 (08:57→20:34)
[2017-01-03] MEDS: LIDOCAINE/PRILOCAINE TOPICAL CREAM 5GM TUBE. TP SCH (09:00)
--- NOTE | 2017-01-03 09:46 | PDOC2 ---
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 Holly Luo SOURCE Source: Chart review, Patient HISTORY OF PRESENT ILLNESS HISTORY OF PRESENT ILLNESS 61 year old male who developed substernal chest pain with dyspnea and hypotension while on dialysis Tuesday. Pain described as a weight on his chest or pressure. Associated with dizziness and nausea. Pain remains intermittent. No acute changes in EKG and troponin levels not consistent with AMI. Stress test 10 years ago in [facility] [place]; results unknown. Also with abdominal distention POA. Reason for Visit: CP PAST MEDICAL HISTORY Cardiovascular: HTN, Hyperlipidemia CENTRAL NERVOUS SYSTEM: Other (spina bifida with paraplegia) GI: Constipation, GERD Heme/Onc: Anemia NOS (of chronic disease) Psych: Anxiety, Depression Renal/: Chronic renal failure (with HD) Endocrine: Hypothyroidism, Hyperparathyroidism PAST SURGICAL HISTORY Past Surgical History: Appendectomy, Cholecystectomy, Other (left nephrectomy) FAMILY HISTORY Family History: Stroke SOCIAL HISTORY Smoke: Quit (1 ppd X 10 years) ALCOHOL: none Drugs: Marijuana Lives: Skilled Nursing CURRENT MEDICATIONS CURRENT MEDICATIONS Current Medications Medications (Trade) Dose Ordered Sig/Pema Route PRN Reason Start Time Stop Time Status Last Admin Dose Admin Acetaminophen (Tylenol) 650 mg Q6HRS PO 01/02/17 12:00 01/02/17 17:06 Amlodipine Besylate (Norvasc) 5 mg BID PO 01/02/17 12:00 01/02/17 12:14 Aripiprazole (Abilify) 7.5 mg DAILY PO 01/02/17 12:00 01/03/17 08:56 Calcium Carbonate/ Glycine (Tums) 500 mg HS PO 01/02/17 21:00 01/02/17 21:26 Clonidine HCl (Catapres) 0.1 mg DAILY PO 01/02/17 12:00 01/02/17 12:12 Docusate Sodium (Colace) 100 mg BID PO 01/02/17 12:00 01/03/17 08:52 Duloxetine HCl (Cymbalta) 30 mg DAILY PO 01/02/17 12:00 01/02/17 13:07 DC 01/02/17 12:13 Famotidine (Pepcid) 20 mg BID PO 01/02/17 12:00 01/02/17 16:26 DC 01/02/17 12:13 Vitamin B Complex/ Vitamin C (Litzy-Dangelo) 1 tab DAILY PO 01/02/17 12:00 01/03/17 08:51 Levothyroxine Sodium (Synthroid) 75 mcg DAILY07 PO 01/02/17 12:00 01/03/17 08:54 Linaclotide (Linzess) 145 mcg DAILY PO 01/02/17 12:00 01/02/17 15:48 DC 01/02/17 12:13 Metoclopramide HCl (Reglan) 5 mg TIDAC PO 01/02/17 11:30 01/03/17 08:53 Polyethylene Glycol (miraLAX PACKET) 17 gm BID PO 01/02/17 12:00 01/03/17 08:51 Calcium Acetate (Phoslo) 667 mg TIDWMEALS PO 01/02/17 12:00 01/03/17 08:53 Calcium Carbonate/ Glycine (Oscal) 1,000 mg QHS PO 01/02/17 21:00 01/02/17 21:26 Clonazepam (KlonoPIN) 2 mg QHS PO 01/02/17 21:00 01/02/17 21:27 Pantoprazole Sodium (Protonix) 40 mg DAILYAC PO 01/02/17 12:00 01/03/17 08:52 Methylnaltrexone [place] (Relistor) 12 mg 1X ONCE SQ 01/02/17 12:00 01/02/17 12:01 DC 01/02/17 12:12 Zolpidem Tartrate (Ambien) 5 mg QHS PO 01/02/17 21:00 01/02/17 21:27 Duloxetine HCl (Cymbalta) 90 mg DAILY PO 01/03/17 09:00 01/03/17 08:52 Linaclotide (Linzess) 290 mcg DAILY PO 01/03/17 09:00 01/03/17 08:51 ALLERGIES ALLERGIES: Coded Allergies: Sulfa (Sulfonamide Antibiotics) (Verified Allergy, Intermediate, 03/08/16) amoxicillin (Verified Allergy, Intermediate, 03/08/16) gabapentin (Verified Allergy, Intermediate, 03/08/16) pregabalin (Verified Allergy, Intermediate, 03/08/16) ROS Review of System 14 point review with pertinent positives in HPI PHYSICAL EXAM General: Alert, Oriented X3, Cooperative HEENT: Atraumatic, PERRLA Lungs: Clear to auscultation Heart: Regular rate, Normal S1, Normal S2, Other (chest pain reproducible with palpation of sternum) Abdomen: Soft, Other (abdomen distended) Extremities: No cyanosis Skin: No breakdown Neuro: Normal speech Psych/Mental Status: Mental status NL, Mood NL MUSCULOSKELETAL: Other (bilateral LE atrophied) VITALS VITALS Vital Signs Date Time Temp Pulse Resp B/P (MAP) Pulse Ox O2 Delivery O2 Flow Rate FiO2 01/03/17 08:57 77 96/60 01/03/17 07:00 99.2 20 95 Room Air 99.2 LABS Lab: Laboratory Tests Test 01/02/17 11:10 01/03/17 02:25 Troponin I Quantitative < 0.017 ng/mL (0.000-0.055) Sodium Level 137 mmol/L (136-145) Potassium Level 4.2 mmol/L (3.5-5.1) Chloride Level 96 mmol/L (98-107) Carbon Dioxide Level 29 mmol/L (21-32) Anion Gap 12 (6-14) Blood Urea Nitrogen 33 mg/dL (8-26) Creatinine 4.2 mg/dL (0.7-1.3) Estimated GFR (Cockcroft-Gault) 14.6 Glucose Level 140 mg/dL (70-99) Calcium Level 9.4 mg/dL (8.5-10.1) Lactate Dehydrogenase 176 U/L (85-227) Thyroid Stimulating Hormone (TSH) 1.337 uIU/mL (0.358-3.74) IMAGES IMAGES no CXR EKG EKG no acute changes ASSESSMENT/PLAN ASSESSMENT/PLAN 1. chest pain, atypical no acute changes in EKG and troponin levels not consistent with ACS pain is reproducible and suspect from heavy arm usage as patient is paraplegic given his multiple risk factors - will obtain echo; if no WMA, then may discharge back to [place] 2. ? ileus of colon defer to primary service 3. HTN would consider using clonidine at least BID and preferably Q8H to avoid rebound HTN continue amlodipine 4. ESRD with HD 5. spina bifida with paraplegia Problems: JOSE TREJO MD 01/03/17 1610: CARDIAC CONSULT ALLERGIES ALLERGIES: Coded Allergies: Sulfa (Sulfonamide Antibiotics) (Verified Allergy, Intermediate, 03/08/16) amoxicillin (Verified Allergy, Intermediate, 03/08/16) gabapentin (Verified Allergy, Intermediate, 03/08/16) pregabalin (Verified Allergy, Intermediate, 03/08/16) ASSESSMENT/PLAN ASSESSMENT/PLAN Pt. seen and examined. 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 61 y.o male with very atypical chest pain. Reproducible on palpation EKG/trop not compatible with aCS. normal echo no further testing if he has persistent symptoms after treatment of msk pain, then can consider stress testing. thx for consult. Problems: JEAN CLAUDE ARIAS APRN January 03, 2017 09:46 JOSE TREJO MD January 03, 2017 16:10
[2017-01-03 11:00] VITALS: BP 96/69
--- NOTE | 2017-01-03 11:24 | PDOC ---
SUBJECTIVE ROS ESRD Doing well today CVS: no Orthopnea, no CP RESP: no SOB, no GUTIERREZ GI: no Nausea, no Vomiting : no Dysuria, no Urgency OBJECTIVE Vital Signs Vital Signs Date Time Temp Pulse Resp B/P (MAP) Pulse Ox O2 Delivery O2 Flow Rate FiO2 01/03/17 08:57 77 96/60 01/03/17 08:00 Room Air 01/03/17 07:00 99.2 20 95 99.2 I & 0 Intake and Output 01/03/17 07:00 # Bowel Movements 1 PHYSICAL EXAM Physical Exam GEN: Awake, Oriented x 3, In no distress; occ memory deficiets EYES: Vision Unchanged, Conjunctiva Normal EN: No EN Drainage, Mucous Membranes moist NECK: no JVD, no JVP, Supple, no Thyromegaly CVS: S1S2, + Murmur, No Gallop, No Rub,no Edema RESP: no Rales, no Rhonchi,no Acc. Muscle Use GI: BS + ve, NO Bruit, Non Tender, Non Distended : no CVA tenderness, no Suprapubic Tenderness DIAGNOSIS/ASSESSMENT Assessment & Plan ESRD: Current fluid and E-lyte status does not necessitate emergent need for dialysis. Will re-evaluate for dialysis in the am and continue on TTSat schedule. ANEMIA; NO Aranap ordered for hgb > 11, Transfuse with next HD as needed HTN: (Currently lowish) so will hold clonidine and use PRN Only. Low Grd fever - watch trend Constipation - now Relieved Discussed Plan of Care with pt at bedside Problems: COMMENT/RELEVANT DATA Meds Current Medications Medications (Trade) Dose Ordered Sig/Pema Start Time Stop Time Status Last Admin Dose Admin Acetaminophen (Tylenol) 650 mg Q6HRS 01/02/17 12:00 01/02/17 17:06 650 MG Amlodipine Besylate (Norvasc) 5 mg BID 01/02/17 12:00 01/02/17 12:14 5 MG Aripiprazole (Abilify) 7.5 mg DAILY 01/02/17 12:00 01/03/17 08:56 7.5 MG Bisacodyl (Dulcolax Supp) 10 mg 1X ONCE 01/01/17 16:45 01/01/17 16:46 DC 01/01/17 16:59 10 MG Bisacodyl (Dulcolax Tab) 5 mg PRN Q12HR PRN 01/02/17 11:15 Calcium Acetate (Phoslo) 667 mg TIDWMEALS 01/02/17 12:00 01/03/17 08:53 667 MG Calcium Carbonate/ Glycine (Oscal) 1,000 mg QHS 01/02/17 21:00 01/02/17 21:26 1,000 MG Calcium Carbonate/ Glycine (Tums) 500 mg HS 01/02/17 21:00 01/02/17 21:26 500 MG Clonazepam (KlonoPIN) 2 mg QHS 01/02/17 21:00 01/02/17 21:27 2 MG Clonidine HCl (Catapres) 0.1 mg DAILY 01/02/17 12:00 01/02/17 12:12 0.1 MG Docusate Sodium (Colace) 100 mg BID 01/02/17 12:00 01/03/17 08:52 100 MG Duloxetine HCl (Cymbalta) 90 mg DAILY 01/03/17 09:00 01/03/17 08:52 90 MG Famotidine (Pepcid) 20 mg BID 01/02/17 12:00 01/02/17 16:26 DC 01/02/17 12:13 20 MG Fentanyl Citrate (Fentanyl 2ml Vial) 25 mcg PRN Q4HRS PRN 01/01/17 16:30 01/03/17 09:00 25 MCG Info (PHARMACY MONITORING -- do not chart) 1 each PRN DAILY PRN 01/02/17 15:00 UNV Levothyroxine Sodium (Synthroid) 75 mcg DAILY07 01/02/17 12:00 01/03/17 08:54 75 MCG Lidocaine/ Prilocaine (Emla) 1 trish DAILY 01/03/17 09:00 Linaclotide (Linzess) 290 mcg DAILY 01/03/17 09:00 01/03/17 08:51 290 MCG Methylnaltrexone [place] (Relistor) 12 mg 1X ONCE 01/02/17 12:00 01/02/17 12:01 DC 01/02/17 12:12 12 MG Metoclopramide HCl (Reglan) 5 mg TIDAC 01/02/17 11:30 01/03/17 08:53 5 MG Nitroglycerin (Nitrostat) 0.4 mg PRN Q10MIN PRN 01/02/17 11:15 Ondansetron HCl (Zofran) 4 mg PRN Q6HRS PRN 01/02/17 06:00 01/02/17 21:47 4 MG Pantoprazole Sodium (Protonix) 40 mg DAILYAC 01/02/17 12:00 01/03/17 08:52 40 MG Polyethylene Glycol (miraLAX PACKET) 17 gm BID 01/02/17 12:00 01/03/17 08:51 17 GM Polyethylene Glycol (miraLAX Powder BULK BOTTLE) 238 gm 1X ONCE 01/01/17 14:00 01/01/17 14:01 DC 01/01/17 13:47 238 GM Sertraline HCl (Zoloft) 200 mg DAILY 01/02/17 09:00 01/03/17 08:52 200 MG Sodium Chloride 1,000 ml @ 1,000 mls/hr Q1H PRN 01/02/17 14:52 01/02/17 20:51 DC Sodium Cl/Sod Bicarb/Potass Cl/ PEG (Golytely) 4,000 ml 1X ONCE 01/01/17 12:30 01/01/17 12:31 UNV Trazodone HCl (Desyrel) 50 mg QHS 01/01/17 21:00 01/02/17 21:27 50 MG Vitamin B Complex/ Vitamin C (Litzy-Dangelo) 1 tab DAILY 01/02/17 12:00 01/03/17 08:51 1 TAB Zolpidem Tartrate (Ambien) 5 mg QHS 01/02/17 21:00 01/02/17 21:27 5 MG Lab Laboratory Tests Test 01/03/17 02:25 Sodium Level 137 mmol/L (136-145) Potassium Level 4.2 mmol/L (3.5-5.1) Chloride Level 96 mmol/L (98-107) Carbon Dioxide Level 29 mmol/L (21-32) Anion Gap 12 (6-14) Blood Urea Nitrogen 33 mg/dL (8-26) Creatinine 4.2 mg/dL (0.7-1.3) Estimated GFR (Cockcroft-Gault) 14.6 Glucose Level 140 mg/dL (70-99) Calcium Level 9.4 mg/dL (8.5-10.1) Lactate Dehydrogenase 176 U/L (85-227) Thyroid Stimulating Hormone (TSH) 1.337 uIU/mL (0.358-3.74) AKILAH WALKER MD January 03, 2017 11:24
[2017-01-03] MEDS: ONDANSETRON PF 4 MG/2 ML VIAL. IV PRN (12:21)
--- NOTE | 2017-01-03 13:08 | PDOC ---
Subjective: Subjective: Nausea. Vomited after breakfast, kept lunch down okay. Diarrhea today. Lower abd pain - chronic. Feels bloated. Says hasn't had x-ray. Objective: Objective: Per RN - having watery stools, vomited after breakfast. Had KUB. Vital Signs: Vital Signs Date Time Temp Pulse Resp B/P (MAP) Pulse Ox O2 Delivery O2 Flow Rate FiO2 01/03/17 11:00 98.5 87 20 96/69 (78) 92 Room Air 98.5 Labs: Laboratory Tests Test 01/03/17 02:25 Sodium Level 137 mmol/L Potassium Level 4.2 mmol/L Chloride Level 96 mmol/L Carbon Dioxide Level 29 mmol/L Anion Gap 12 Blood Urea Nitrogen 33 mg/dL Creatinine 4.2 mg/dL Estimated GFR (Cockcroft-Gault) 14.6 Glucose Level 140 mg/dL Calcium Level 9.4 mg/dL Lactate Dehydrogenase 176 U/L Thyroid Stimulating Hormone (TSH) 1.337 uIU/mL Imaging: KUB 01/03/17 PENDING PE: GEN: NAD, sitting up in bed LUNGS: CTAB HEART: RRR ABD: very low - suprapubic/RLQ tenderness, BS+ NEURO/PSYCH: A & O 3 A/P: Spinal/narcotic constipation -received Relistor, now has Linzess 290mcg + Miralax N/v, abd distention, diarrhea ---> bothersome today -?h/o gastroparesis ---> on Reglan TID -emesis after breakfast, tolerated lunch so far -- Will review w/ Dr. Bello. CLAUDIA FERRARI January 03, 2017 13:08
--- NOTE | 2017-01-03 14:36 | CARD ---
APPROVED REPORT EXAM: Two-dimensional and M-mode echocardiogram with Doppler and color Doppler. Other Information Quality : GoodHR: 97bpm Rhythm : NSR INDICATION Hypertension/HCVD Chest Pain 2D DIMENSIONS RVDd2.8 (2.9-3.5cm)Left Atrium(2D)3.3 (1.6-4.0cm) IVSd0.8 (0.7-1.1cm)Aortic Root(2D)3.2 (2.0-3.7cm) LVDd4.1 (3.9-5.9cm)LVOT Diameter2.1 (1.8-2.4cm) PWd0.8 (0.7-1.1cm)LVDs2.5 (2.5-4.0cm) LVEF(%)50.0 (>50%) Aortic Valve AoV Peak Scott.136.0cm/sAoV VTI25.0cm AO Peak GR.20.0mmHgLVOT Peak Scott.98.0cm/s LVOT VTI 20.00cm Mitral Valve MV E Ocplrexn21.0cm/sMV DECEL [id number] MV A Lowyoidz059.0cm/sE/A Ratio0.6 TDI E/Lateral E'8.0 Pulmonary Valve PV Peak Aaotfdro49.0cm/s Pulmonary Vein S1 Fozpqqwx16.0cm/sS2 Rzspyyko03.00cm/s D2 Xjzczmqo64.0cm/sPVa apregyvf29ssdm LEFT VENTRICLE The left ventricle is normal size. There is normal left ventricular wall thickness. The left ventricu lar systolic function is normal and the ejection fraction is within normal range. The Ejection Fracti on is 50-55%. There is normal LV segmental wall motion. Transmitral Doppler flow pattern is Grade I-a bnormal relaxation pattern. RIGHT VENTRICLE The right ventricle is normal size. There is normal right ventricular wall thickness. The right ventr icular systolic function is normal. ATRIA The left atrium size is normal. The right atrium size is normal. The interatrial septum is intact wit h no evidence for an atrial septal defect or patent foramen ovale as noted on 2-D or Doppler imaging. AORTIC VALVE The aortic valve is not well visualized. The aortic valve is calcified but opens well. Doppler and Co jennifer Flow revealed no significant aortic regurgitation. There is no significant aortic valvular stenos is. MITRAL VALVE The mitral valve is not well visualized. The mitral valve is thickened but opens well. There is no ev idence of mitral valve prolapse. There is no mitral valve stenosis. Doppler and Color Flow revealed t race mitral valve regurgitation. TRICUSPID VALVE The tricuspid valve is normal in structure and function. Doppler and Color Flow revealed no tricuspid valve regurgitation noted. PULMONIC VALVE The pulmonic valve is not well visualized. Doppler and Color Flow revealed trace to mild pulmonic emmanuel vular regurgitation. There is no pulmonic valvular stenosis. GREAT VESSELS The aortic root is normal in size. The ascending aorta is normal in size. The pulmonary artery is nor mal. The IVC is normal in size and collapses >50% with inspiration. PERICARDIAL EFFUSION There is no evidence of significant pericardial effusion. Critical Notification Critical Value: No <Conclusion> The left ventricle is normal size. The left ventricular systolic function is normal and the ejection fraction is within normal range. The Ejection Fraction is 50-55%. There is normal left ventricular wall thickness. The interatrial septum is intact with no evidence for an atrial septal defect or patent foramen ovale as noted on 2-D or Doppler imaging. There is no significant aortic valvular stenosis. Doppler and Color Flow revealed no significant aortic regurgitation. Doppler and Color Flow revealed trace mitral valve regurgitation. Doppler and Color Flow revealed no tricuspid valve regurgitation noted. Doppler and Color Flow revealed trace to mild pulmonic valvular regurgitation.
[2017-01-03 15:00] VITALS: BP 112/61
--- NOTE | 2017-01-03 15:04 | RAD ---
Examination: Single frontal view the abdomen History: History of constipation Comparison: 01/01/2017. Findings: Prominent air distended bowel loops identified in the abdomen grossly similar to prior exam. Impression: Unchanged air distended bowel loops in the abdomen.
[2017-01-03 19:39] VITALS: BP 113/70
[2017-01-03] MEDS: CALCIUM CARBONATE 500 MG TABLET PO SCH (20:32)
[2017-01-03] MEDS: CALCIUM CARBONATE 500 MG TAB.CHEW PO SCH (20:33)
[2017-01-03] MEDS: clonazePAM 1 MG TABLET PO SCH (20:34)
[2017-01-03] MEDS: ZOLPIDEM 5 MG TABLET. PO SCH (20:35)
[2017-01-03] MEDS: traZODone 50 MG TABLET. PO SCH (20:35)
[2017-01-03 22:39] VITALS: BP 103/57
--- NOTE | 2017-01-04 03:40 | PN ---
DATE: 01/03/2017 SUBJECTIVE: The patient is sitting slightly propped up in bed, continues to complain of some abdominal pain, although he has multiple loose bowel movements yesterday and this morning. He did have also 1 episode of emesis. He was seen by the Cardiology team and so far all his cardiac enzymes and EKGs are unremarkable and unrevealing. He is scheduled for an echocardiogram. He was also seen by the Gastroenterology team and they recommended to increase his Linzess to ____ and to continue with MiraLax and Relistor. OBJECTIVE: GENERAL: When I examined him, he looked well and was clearly in no apparent respiratory distress. He was pale, but no jaundice, cyanosis or thyromegaly. No jugular venous distention. No limb edema. VITAL SIGNS: His heart rate was 77, blood pressure was ____, temperature was 99.2, respiratory rate was 20, and oxygen saturation was 95%. HEAD, EYES, EARS, NOSE AND THROAT: Normocephalic, atraumatic. NECK: Supple. HEART: Showed normal first and second heart sounds with no gallop, rub or murmur. CHEST: Clear to auscultation. No crepitation or rhonchi. ABDOMEN: Distended, soft, nontender. No guarding or rigidity. No organomegaly. Hernial orifices intact. Bowel sounds normal. NEUROLOGIC: He is awake, alert, responding appropriately. Cranial nerves intact. He moves upper extremities without difficulty. He has paraplegia. He is mostly bedbound, chair bound. He is completely anuric and hemodialysis dependent. LABORATORY DATA: As of this morning, his serum sodium is 137, potassium 4.2, chloride 96, bicarbonate 29, anion gap of 12, BUN 33, creatinine 4.2. Estimated GFR was 14.6, blood sugar was 140, calcium was 9.4. LDH was 176. TSH is normal at 1.37. White cell count was 6000, hemoglobin 13, hematocrit 38, MCV 104, and platelet count 252,000. ASSESSMENT: Severe constipation, opioid-induced, end-stage renal failure on hemodialysis, spina bifida cystica with paraplegia, hypertension, seizure disorder, chronic pain syndrome, hyperlipidemia, hypothyroidism, iron deficiency anemia, anxiety and depression. PLAN: To continue with the Linzess. Continue with the MiraLax 17 grams twice a day, Colace 100 mg twice a day. I will repeat his KUB and decide on further management accordingly. WAYLON CONCEPCION MD DR: Toribio JOB#: [id number] / [id number]
[2017-01-04 03:41] VITALS: BP 103/62
[2017-01-04] MEDS: fentaNYL PF VIAL 100 MCG/2 ML VIAL IV PRN ×4 (03:57→15:59)
[2017-01-04] MEDS: ACETAMINOPHEN 325 MG TABLET. PO SCH ×4 (06:14→19:16)
[2017-01-04] MEDS: METOCLOPRAMIDE 10 MG TABLET. PO SCH ×3 (06:14→16:00)
[2017-01-04] MEDS: LEVOTHYROXINE 75 MCG TABLET PO SCH (06:14)
[2017-01-04] MEDS: PANTOPRAZOLE 40 MG TABLET.DR. PO SCH (06:14)
[2017-01-04 07:00] VITALS: BP 94/56
[2017-01-04] MEDS ORDERED: IV NORMAL SALINE 1000ML BAG 1,000 ML IV PRN ×2 (07:24)
[2017-01-04] MEDS ORDERED: DIALYSIS PATIENT. MC PRN (07:30)
[2017-01-04] MEDS ORDERED: ALBUMIN HUMAN 25% 200 ML IV PRN (07:30)
[2017-01-04] MEDS: POLYETHYLENE GLYCOL 3350 17 GM PACKET. PO SCH ×3 (09:00→21:05)
[2017-01-04] MEDS: amLODIPine BESYLATE 5 MG TABLET PO SCH ×2 (09:00→21:06)
--- NOTE | 2017-01-04 09:02 | PDOC ---
Dialysis Progress Note Dialysis Note Dialysis Note Seen on Hemodialysis, tolerating treatment Okay currently Vitals on Hemodialysis: 94/51 76 afeb General Appearance: Awake; Alert Oriented x 2-3 Neck: No JVD or JVP Chest: CTA Ryan Heart: S1 S2 Abdomen - Soft NTND Extremities - No Edema ESRD: Dialysis as below F 180 NR 3.0 Hrs 3 K 2.5 Ca 140 Na 35HC03 Qb 350 + Qd 500+ Heparin 0 Units Uf 0 Kgs or to dry weight as tolerated May give 25-50 gms of 25% Albumin if needed to maintain Hemodynamic stability Treatment plan reviewed and discussed with manager pe Will reval on Hd due to Low BP Vitals Vital Signs Vital Signs Date Time Temp Pulse Resp B/P (MAP) Pulse Ox O2 Delivery O2 Flow Rate FiO2 01/04/17 07:46 Room Air 01/04/17 07:00 98.4 67 18 94/56 (69) 93 98.4 Labs Last Labs Laboratory Tests Test 01/02/17 11:10 01/03/17 02:25 Troponin I Quantitative < 0.017 ng/mL (0.000-0.055) Sodium Level 137 mmol/L (136-145) Potassium Level 4.2 mmol/L (3.5-5.1) Chloride Level 96 mmol/L (98-107) Carbon Dioxide Level 29 mmol/L (21-32) Anion Gap 12 (6-14) Blood Urea Nitrogen 33 mg/dL (8-26) Creatinine 4.2 mg/dL (0.7-1.3) Estimated GFR (Cockcroft-Gault) 14.6 Glucose Level 140 mg/dL (70-99) Calcium Level 9.4 mg/dL (8.5-10.1) Lactate Dehydrogenase 176 U/L (85-227) Thyroid Stimulating Hormone (TSH) 1.337 uIU/mL (0.358-3.74) Assessment Assessment Problems Medical Problems: (1) Abdominal pain Status: Acute (2) Chest pain Status: Acute Problems: Plan Plan of Care Problems Medical Problems: (1) Abdominal pain Status: Acute (2) Chest pain Status: Acute AKILAH WALKER MD January 04, 2017 09:02
[2017-01-04] MEDS ORDERED: ALBUMIN HUMAN 25% 100 ML IV ONE (09:45)
[2017-01-04] MEDS: MINERAL OIL 133 ML ENEMA. PR SCH ×2 (11:30→21:00)
--- NOTE | 2017-01-04 11:32 | PDOC ---
Subjective: Subjective: Seen on 5th floor, just finished dialysis. Says a little better GI-watt today, no n/v. Ongoing chronic lower abd pain. Says no BM today. Objective: Objective: Per RN - did have a BM this morning. Some hypotension. Vital Signs: Vital Signs Date Time Temp Pulse Resp B/P (MAP) Pulse Ox O2 Delivery O2 Flow Rate FiO2 01/04/17 07:46 Room Air 01/04/17 07:00 98.4 67 18 94/56 (69 93 98.4 Imaging: KUB 01/03/17 Impression: Unchanged air distended bowel loops in the abdomen. PE: GEN: NAD LUNGS: clear anteriorly HEART: RRR ABD: BS+, doesn't seem particularly tender today NEURO/PSYCH: A & O 3 A/P: Spinal/narcotic constipation -on Relistor, Linzess, Miralax, Colace N/v, abd distention - improved -on Reglan TID -- Better today. Continue treatment for constipation. CLAUDIA FERRARI January 04, 2017 11:32
[2017-01-04] MEDS: CALCIUM ACETATE 667 MG CAPSULE PO SCH ×3 (11:47→19:15)
[2017-01-04] MEDS: FOLIC/VIT B COMP W-C (RENAL) TABLET. PO SCH (11:47)
[2017-01-04] MEDS: DOCUSATE SODIUM 100 MG CAPSULE. PO SCH ×3 (11:47→21:05)
[2017-01-04] MEDS: ARIPiprazole 5 MG TABLET PO SCH (11:47)
[2017-01-04] MEDS: SERTRALINE 50 MG TABLET. PO SCH (11:48)
[2017-01-04] MEDS: DULoxetine HCL 30 MG CAPSULE.DR PO SCH (11:48)
[2017-01-04] MEDS: LINACLOTIDE 145 MCG CAPSULE. PO SCH (11:49)
[2017-01-04] MEDS: LIDOCAINE/PRILOCAINE TOPICAL CREAM 5GM TUBE. TP SCH (11:54)
[2017-01-04] MEDS: METHYLNALTREXONE 12 MG/0.6 ML VIAL. SQ SCH (12:39)
[2017-01-04 15:00] VITALS: BP 110/69
[2017-01-04 19:00] VITALS: BP 140/78
[2017-01-04] MEDS: oxyCODONE/APAP 5/325 1 TAB TABLET PO PRN (19:16)
[2017-01-04] MEDS: clonazePAM 1 MG TABLET PO SCH (21:05)
[2017-01-04] MEDS: traZODone 50 MG TABLET. PO SCH (21:05)
[2017-01-04] MEDS: CALCIUM CARBONATE 500 MG TAB.CHEW PO SCH (21:05)
[2017-01-04] MEDS: CALCIUM CARBONATE 500 MG TABLET PO SCH (21:06)
[2017-01-04] MEDS: ZOLPIDEM 5 MG TABLET. PO SCH (21:06)
[2017-01-04] MEDS: cloNIDine HCL 0.1 MG TABLET PO SCH (21:07)
[2017-01-04 23:00] VITALS: BP 117/63
--- NOTE | 2017-01-05 01:11 | PN ---
DATE: 01/04/2017 SUBJECTIVE: The patient is having his scheduled hemodialysis this morning, apparently had an episode of hypotension. He received some IV bolus and IV fluid bolus. He did have multiple bowel movements yesterday and this morning. He has no further nausea or vomiting. He has eaten his breakfast without difficulty, has no further episodes of nausea or vomiting. OBJECTIVE: GENERAL: When I examined him this morning, he looked well and was clearly in no apparent respiratory distress, pale, but no jaundice, cyanosis, or thyromegaly. No jugular venous distention. No limb edema. VITAL SIGNS: His heart rate was 67, blood pressure was 94/56, temperature was 98.4, respiratory rate was 18 and oxygen saturation was 93%. HEAD, EYES, EARS, NOSE AND THROAT: Showed normocephalic, atraumatic. NECK: Supple. HEART: Showed normal first and second heart sounds with no gallop, rub or murmur. CHEST: Clear to auscultation. No crepitation or rhonchi. ABDOMEN: Distended, soft, nontender. No guarding or rigidity. No organomegaly. Hernial orifices intact. Bowel sounds normal. NEUROLOGIC: He was awake, alert, responding appropriately. He is very hard of hearing, but otherwise all other cranial nerves are intact. He moves his upper extremities without difficulty, has paraplegia secondary to spina bifida. He is completely anuric and hemodialysis dependent. LABORATORY DATA: He has no lab work done today. He did have a KUB showed that he has prominent ____ distended bowel loops identified in the abdomen, grossly similar to previous exam. PLAN: The plan is to continue with his current medication. We will continue with Linzess as well as his polyethylene glycol twice a day and docusate sodium. As he is already on Dulcolax, I will add an enema today and evaluate him again tomorrow. WAYLON CONCEPCION MD DR: ADDIE/joe JOB#: [id number] / [id number]
[2017-01-05 03:00] VITALS: BP 123/71
[2017-01-05] MEDS: LEVOTHYROXINE 75 MCG TABLET PO SCH (06:07)
[2017-01-05] MEDS: oxyCODONE/APAP 5/325 1 TAB TABLET PO PRN ×3 (06:07→14:07)
[2017-01-05] MEDS: ACETAMINOPHEN 325 MG TABLET. PO SCH ×3 (06:08→14:07)
[2017-01-05 07:00] VITALS: BP 111/62
[2017-01-05] MEDS: DOCUSATE SODIUM 100 MG CAPSULE. PO SCH ×2 (07:05→08:38)
[2017-01-05] MEDS: POLYETHYLENE GLYCOL 3350 17 GM PACKET. PO SCH (07:05)
[2017-01-05] MEDS: MINERAL OIL 133 ML ENEMA. PR SCH (07:06)
[2017-01-05] MEDS: METHYLNALTREXONE 12 MG/0.6 ML VIAL. SQ SCH (07:06)
[2017-01-05 07:33] LABS: HEP B SURFACE ABDY Reactive (.)
[2017-01-05] MEDS: LINACLOTIDE 145 MCG CAPSULE. PO SCH (08:38)
[2017-01-05] MEDS: METOCLOPRAMIDE 10 MG TABLET. PO SCH ×2 (08:38→14:07)
[2017-01-05] MEDS: PANTOPRAZOLE 40 MG TABLET.DR. PO SCH (08:39)
[2017-01-05] MEDS: ARIPiprazole 5 MG TABLET PO SCH (08:39)
[2017-01-05] MEDS: DULoxetine HCL 30 MG CAPSULE.DR PO SCH (08:39)
[2017-01-05] MEDS: CALCIUM ACETATE 667 MG CAPSULE PO SCH ×2 (08:39→14:07)
[2017-01-05] MEDS: SERTRALINE 50 MG TABLET. PO SCH (08:39)
[2017-01-05] MEDS: FOLIC/VIT B COMP W-C (RENAL) TABLET. PO SCH (08:40)
[2017-01-05] MEDS: amLODIPine BESYLATE 5 MG TABLET PO SCH (08:41)
[2017-01-05] MEDS: LIDOCAINE/PRILOCAINE TOPICAL CREAM 5GM TUBE. TP SCH (09:00)
--- NOTE | 2017-01-05 09:36 | PDOC ---
Subjective: Subjective: "Hurting." Low abd pain worse this morning after eating. Objective: Objective: Per RN - possible DC today. Vital Signs: Vital Signs Date Time Temp Pulse Resp B/P (MAP) Pulse Ox O2 Delivery O2 Flow Rate FiO2 01/05/17 08:41 57 111/62 01/05/17 08:34 Room Air 01/05/17 07:00 98.6 22 93 98.6 PE: GEN: sitting up in bed hold abd LUNGS: CTAB HEART: RRR ABD: lower discomfort NEURO/PSYCH: A & O 3 A/P: Spinal/narcotic constipation, chronic abd pain -- Constipation improved w/ Relistor, Linzess, Miralax. Pain worse today. CLAUDIA FERRARI January 05, 2017 09:36
[2017-01-05 11:00] VITALS: BP 130/72
[2017-01-05] MEDS ORDERED: MAGNESIUM SULFATE 2GM 50 ML IV PRN (11:00)
--- NOTE | 2017-01-05 11:07 | PDOC ---
SUBJECTIVE ROS ESRD doign and feeling same overall - still some Abd pain and discomfort CVS: no Orthopnea, no CP RESP: no SOB, no GUTIERREZ GI: + Nausea, no Vomiting - had explosive BM Yest : no Dysuria, no Urgency OBJECTIVE Vital Signs Vital Signs Date Time Temp Pulse Resp B/P (MAP) Pulse Ox O2 Delivery O2 Flow Rate FiO2 01/05/17 09:42 Room Air 01/05/17 08:41 57 111/62 01/05/17 07:00 98.6 22 93 98.6 PHYSICAL EXAM Physical Exam GEN: Awake, Oriented x 3, In no distress; occ memory deficiets EYES: Vision Unchanged, Conjunctiva Normal EN: No EN Drainage, Mucous Membranes moist NECK: no JVD, no JVP, Supple, no Thyromegaly CVS: S1S2, + Murmur, No Gallop, No Rub,no Edema RESP: no Rales, no Rhonchi,no Acc. Muscle Use GI: BS + ve, NO Bruit, min Tender, Non Distended : no CVA tenderness, no Suprapubic Tenderness DIAGNOSIS/ASSESSMENT Assessment & Plan ESRD: Current fluid and E-lyte status does not necessitate emergent need for dialysis. Will re-evaluate for dialysis in the am and continue on TTSat schedule. ANEMIA; NO Aranesp ordered for hgb > 11, Transfuse with next HD as needed HTN: (Currently lowish) so will hold clonidine and use PRN Only. Abd pain and discomfort - defer to GI - OK to do CT with IVC if needed and will co-ordinate with HD prn Discussed Plan of Care with pt at bedside COMMENT/RELEVANT DATA Meds Current Medications Medications (Trade) Dose Ordered Sig/Pema Start Time Stop Time Status Last Admin Dose Admin Acetaminophen (Tylenol) 650 mg Q6HRS 01/02/17 12:00 01/05/17 06:08 650 MG Albumin Human 100 ml @ 100 mls/hr 1X ONCE 01/04/17 09:45 01/04/17 10:44 DC Amlodipine Besylate (Norvasc) 5 mg BID 01/02/17 12:00 01/04/17 21:06 5 MG Aripiprazole (Abilify) 7.5 mg DAILY 01/02/17 12:00 01/05/17 08:39 7.5 MG Bisacodyl (Dulcolax Supp) 10 mg 1X ONCE 01/01/17 16:45 01/01/17 16:46 DC 01/01/17 16:59 10 MG Bisacodyl (Dulcolax Tab) 5 mg PRN Q12HR PRN 01/02/17 11:15 Calcium Acetate (Phoslo) 667 mg TIDWMEALS 01/02/17 12:00 01/05/17 08:39 667 MG Calcium Carbonate/ Glycine (Oscal) 1,000 mg QHS 01/02/17 21:00 01/04/17 21:06 1,000 MG Calcium Carbonate/ Glycine (Tums) 500 mg HS 01/02/17 21:00 01/04/17 21:05 500 MG Clonazepam (KlonoPIN) 2 mg QHS 01/02/17 21:00 01/04/17 21:05 2 MG Clonidine HCl (Catapres) 0.1 mg QHS 01/03/17 21:00 01/04/17 21:07 0.1 MG Docusate Sodium (Colace) 100 mg BID 01/02/17 12:00 01/05/17 08:38 100 MG Duloxetine HCl (Cymbalta) 90 mg DAILY 01/03/17 09:00 01/05/17 08:39 90 MG Famotidine (Pepcid) 20 mg BID 01/02/17 12:00 01/02/17 16:26 DC 01/02/17 12:13 20 MG Fentanyl Citrate (Fentanyl 2ml Vial) 25 mcg PRN Q4HRS PRN 01/01/17 16:30 01/04/17 16:25 DC 01/04/17 15:59 25 MCG Info (PHARMACY MONITORING -- do not chart) 1 each PRN DAILY PRN 01/04/17 07:30 Levothyroxine Sodium (Synthroid) 75 mcg DAILY07 01/02/17 12:00 01/05/17 06:07 75 MCG Lidocaine/ Prilocaine (Emla) 1 trish DAILY 01/03/17 09:00 01/04/17 11:54 1 TRISH Linaclotide (Linzess) 290 mcg DAILY 01/03/17 09:00 01/05/17 08:38 290 MCG Methylnaltrexone [place] (Relistor) 12 mg DAILY 01/04/17 12:00 01/04/17 12:39 12 MG Metoclopramide HCl (Reglan) 5 mg TIDAC 01/02/17 11:30 01/05/17 08:38 5 MG Mineral Oil (Fleet Mineral Oil) 133 ml BID 01/04/17 11:30 Nitroglycerin (Nitrostat) 0.4 mg PRN Q10MIN PRN 01/02/17 11:15 Ondansetron HCl (Zofran) 4 mg PRN Q6HRS PRN 01/02/17 06:00 01/03/17 12:21 4 MG Oxycodone/ Acetaminophen (Percocet 5/325) 1 tab PRN Q4HRS PRN 01/04/17 16:30 01/05/17 09:42 1 TAB Pantoprazole Sodium (Protonix) 40 mg DAILYAC 01/02/17 12:00 01/05/17 08:39 40 MG Polyethylene Glycol (miraLAX PACKET) 17 gm BID 01/02/17 12:00 01/04/17 21:05 17 GM Polyethylene Glycol (miraLAX Powder BULK BOTTLE) 238 gm 1X ONCE 01/01/17 14:00 01/01/17 14:01 DC 01/01/17 13:47 238 GM Sertraline HCl (Zoloft) 200 mg DAILY 01/02/17 09:00 01/05/17 08:39 200 MG Sodium Chloride 1,000 ml @ 400 mls/hr Q2H30M PRN 01/04/17 07:24 01/04/17 19:23 DC Sodium Cl/Sod Bicarb/Potass Cl/ PEG (Golytely) 4,000 ml 1X ONCE 01/01/17 12:30 01/01/17 12:31 UNV Trazodone HCl (Desyrel) 50 mg QHS 01/01/17 21:00 01/04/17 21:05 50 MG Vitamin B Complex/ Vitamin C (Litzy-Dangelo) 1 tab DAILY 01/02/17 12:00 01/05/17 08:40 1 TAB Zolpidem Tartrate (Ambien) 5 mg QHS 01/02/17 21:00 01/04/17 21:06 5 MG AKILAH WALKER MD January 05, 2017 11:07
[2017-01-05] MEDS ORDERED: LINA290C PO (14:32)
[2017-01-05 15:00] VITALS: BP 127/74
== END 2017-01-05 16:40 | DRG 391 ==
LOC: ER 10:54 → 4 NORTH 11:45
PROVIDERS: ADMIT Internal Medicine; ATTEND Internal Medicine
PROC: 5A1D60Z (ICD-10-PCS; principal; 2017-01-02)
DX: K59.03 Drug induced constipation (principal); N18.6 End stage renal disease; G82.20 Paraplegia, unspecified; I12.0 Hypertensive chronic kidney disease with stage 5 chronic kidney disease or end stage renal disease; N25.81 Secondary hyperparathyroidism of renal origin; D50.9 Iron deficiency anemia, unspecified; D63.1 Anemia in chronic kidney disease; E03.9 Hypothyroidism, unspecified; E78.00 Pure hypercholesterolemia, unspecified; E78.5 Hyperlipidemia, unspecified; F32.9 Major depressive disorder, single episode, unspecified; F41.9 Anxiety disorder, unspecified; G40.909 Epilepsy, unspecified, not intractable, without status epilepticus; G89.4 Chronic pain syndrome; K21.9 Gastro-esophageal reflux disease without esophagitis; T40.2X5A Adverse effect of other opioids, initial encounter; I95.3 Hypotension of hemodialysis; Q05.9 Spina bifida, unspecified; Z82.3 Family history of stroke; Z87.891 Personal history of nicotine dependence; Z90.49 Acquired absence of other specified parts of digestive tract; Z99.2 Dependence on renal dialysis; Z88.1 Allergy status to other antibiotic agents; Z88.2 Allergy status to sulfonamides; Z88.8 Allergy status to other drugs, medicaments and biological substances
CPT/HCPCS: 36415; 74000; 74022; 80048; 80076; 82553; 83615; 83690; 83735; 83880; 84443; 84484; 85027; 85610; 86706; 87340; 87341; 87641; 93005; 93306; J2212; J2405; J3010; J8597; P9046; 99285-25

== ENCOUNTER 2017-01-08 18:52 | Emergency (ER) | payer MEDICARE, OTHER ==
[~2017-01-08] VITALS: Ht 154.9 cm; Wt 74.8 kg
[~2017-01-08 18:52] MED LIST changes: +CALC200T3 PO; +LINA290C PO; +LOPE2TAB27 PO
[2017-01-08 19:22] LABS: BASO % 1 % (0-3); EOS % 0 % (0-3); HEMATOCRIT 33.4 % (39.0-53.0); LYMPH # 0.7 x10^3/uL (1.0-4.8); LYMPH % 10 % (24-48); MEAN CORPUSCULAR HEMOGLOBIN 34 pg (25-35); MEAN CORPUSCULAR HGB CONC 33 g/dL (31-37); MEAN CORPUSCULAR VOLUME 103 fL (79-100); MONO % 10 % (0-9); NEUT % 80 % (31-73); PLATELET COUNT 118 x10^3/uL (140-400); RED BLOOD COUNT 3.23 x10^6/uL (4.30-5.70); WHITE BLOOD COUNT 7.5 x10^3/uL (4.0-11.0)
[2017-01-08 19:31] LABS: CREATININE 3.6 mg/dL (0.7-1.3); GFR 17.4; POTASSIUM 3.9 mmol/L (3.5-5.1)
[2017-01-08 19:37] LABS: ALBUMIN 3.8 g/dL (3.4-5.0); ALBUMIN/GLOBULIN RATIO 1.2 (1.0-1.7); TOTAL BILIRUBIN 0.7 mg/dL (0.2-1.0)
[2017-01-08] MEDS ORDERED: ONDANSETRON PF 4 MG/2 ML VIAL. IV ONE (20:30)
[2017-01-08] MEDS ORDERED: fentaNYL PF VIAL 100 MCG/2 ML VIAL IV ONE (20:30)
--- NOTE | 2017-01-08 20:50 | RAD ---
PROCEDURE CT abdomen and pelvis without contrast. HISTORY Bowel obstruction abdominal pain. TECHNIQUE Axial images and coronal and sagittal re-formatted images are provided. One or more of the following individualized dose reduction techniques were utilized for this exam: 1. Automated exposure control. 2. Adjustment of the mA and/or kV according to patient's size. 3. Use of iterative reconstruction technique. COMPARISON November 01, 2016. FINDINGS There is minimal atelectasis in the right lung base. There is no pleural effusion. The heart is not enlarged. Coronary artery calcifications are noted. Solid organ evaluation is limited without contrast. Liver is grossly unremarkable. Gallbladder is absent. Pancreas and adrenals are unremarkable. Low density lesion within the spleen measures 6.8 centimeters, could represent cyst or lymphangioma. There is atheromatous disease in the abdominal aorta without aneurysm. There is right renal atrophy with simple cysts noted. Left kidney is absent, no residual or recurrent tissue in the left renal fossa. Lack of oral contrast limits evaluation of bowel. There are postsurgical changes noted at the GE junction. There are postsurgical changes noted in small bowel loops. No dilated small bowel loop or air-fluid level is apparent. Moderate amount of stool is noted in the colon. Appendix is not visualized. Bladder is decompressed. There is no free pelvic fluid. There are degenerative changes in the spine which are mild, with levocurvature centered at the thoracolumbar junction. IMPRESSION - No acute abdominal findings. No evidence of bowel obstruction. - Increased stool throughout the colon compatible with constipation. - Left nephrectomy. - Low density lesions within the spleen and right kidney are stable. Electronically signed by: Sourav Worthy MD (January 08, 2017 20:48:39)
--- NOTE | 2017-01-08 21:10 | ED.ADGEN ---
Past Medical History Past Medical History: Anemia, Anxiety, Depression, GERD, High Cholesterol, Hypertension, Renal Disease Additional Past Medical Histor: spina bifida- paraplegia, thyroid disease, insomnia, Dialysis Past Surgical History: Appendectomy, Cholecystectomy Additional Past Surgical Histo: stoma to abdomen, L kidney removed, ? bladder removed, hiatal hernia Alcohol Use: None Drug Use: None Adult General Chief Complaint Chief Complaint: ABDOMINAL PAIN HPI HPI Patient is a 61 year old male with history of spina bifida, chronic constipation and abdominal pain is evaluated by PCP and had an outpatient abdominal series yesterday which was concerning for possible ileus versus bowel obstruction. Patient was referred to the ED for further evaluation and CT imaging. Patient reports chronic abdominal pain for years and occasional nausea and loose stools. No vomiting. No fever chills or sweats. Patient does not make urine. No other symptoms or complaints. Review of Systems Review of Systems ROS as per HPI. Current Medications Current Medications Current Medications Medications (Trade) Dose Ordered Sig/Pema Start Time Stop Time Status Last Admin Dose Admin Fentanyl Citrate (Fentanyl 2ml Vial) 75 mcg 1X ONCE 01/08/17 20:30 01/08/17 20:31 DC 01/08/17 20:35 75 MCG Ondansetron HCl (Zofran) 4 mg 1X ONCE 01/08/17 20:30 01/08/17 20:31 DC 01/08/17 20:35 4 MG Allergies Allergies Allergies Coded Allergies Type Severity Reaction Last Updated Verified Sulfa (Sulfonamide Antibiotics) Allergy Intermediate 03/08/16 Yes amoxicillin Allergy Intermediate 03/08/16 Yes gabapentin Allergy Intermediate 03/08/16 Yes pregabalin Allergy Intermediate 03/08/16 Yes Physical Exam Physical Exam Constitutional: Well developed, well nourished, no acute distress, non-toxic appearance. HENT: Normocephalic, atraumatic, bilateral external ears normal. Eyes: PERRLA, EOMI, conjunctiva normal. Neck: Normal range of motion. Cardiovascular:Heart rate regular rhythm, no murmur. Lungs & Thorax: Bilateral breath sounds clear to auscultation. Abdomen: Bowel sounds normal, soft, moderate distention, quite bowel sounds, nondescript pain. Skin: Warm, dry. Back: No tenderness. Extremities: Shortened lower limbs. Current Patient Data Vital Signs Vital Signs Date Time Temp Pulse Resp B/P (MAP) Pulse Ox O2 Delivery O2 Flow Rate FiO2 01/08/17 20:35 18 98 Room Air 01/08/17 18:55 98.5 73 185/96 (125) 98.5 Lab Values Laboratory Tests Test 01/08/17 18:07 White Blood Count 7.5 x10^3/uL (4.0-11.0) Red Blood Count 3.23 x10^6/uL (4.30-5.70) L Hemoglobin 11.0 g/dL (13.0-17.5) L Hematocrit 33.4 % (39.0-53.0) L Mean Corpuscular Volume 103 fL (79-100) H Mean Corpuscular Hemoglobin 34 pg (25-35) Mean Corpuscular Hemoglobin Concent 33 g/dL (31-37) Red Cell Distribution Width 14.0 % (11.5-14.5) Platelet Count 118 x10^3/uL (140-400) L Neutrophils (%) (Auto) 80 % (31-73) H Lymphocytes (%) (Auto) 10 % (24-48) L Monocytes (%) (Auto) 10 % (0-9) H Eosinophils (%) (Auto) 0 % (0-3) Basophils (%) (Auto) 1 % (0-3) Neutrophils # (Auto) 6.0 x10^3uL (1.8-7.7) Lymphocytes # (Auto) 0.7 x10^3/uL (1.0-4.8) L Monocytes # (Auto) 0.7 x10^3/uL (0.0-1.1) Eosinophils # (Auto) 0.0 x10^3/uL (0.0-0.7) Basophils # (Auto) 0.0 x10^3/uL (0.0-0.2) Sodium Level 137 mmol/L (136-145) Potassium Level 3.9 mmol/L (3.5-5.1) Chloride Level 97 mmol/L (98-107) L Carbon Dioxide Level 29 mmol/L (21-32) Anion Gap 11 (6-14) Blood Urea Nitrogen 19 mg/dL (8-26) Creatinine 3.6 mg/dL (0.7-1.3) H Estimated GFR (Cockcroft-Gault) 17.4 BUN/Creatinine Ratio 5 (6-20) L Glucose Level 106 mg/dL (70-99) H Calcium Level 9.0 mg/dL (8.5-10.1) Total Bilirubin 0.7 mg/dL (0.2-1.0) Aspartate Amino Transferase (AST) 19 U/L (15-37) Alanine Aminotransferase (ALT) 23 U/L (16-63) Alkaline Phosphatase 112 U/L (46-116) Total Protein 7.0 g/dL (6.4-8.2) Albumin 3.8 g/dL (3.4-5.0) Albumin/Globulin Ratio 1.2 (1.0-1.7) Lipase 111 U/L (73-393) Laboratory Tests 01/08/17 18:07 Laboratory Tests 01/08/17 18:07 EKG EKG [] Radiology/Procedures Radiology/Procedures [CT abdomen pelvis: No acute disease per radiology report.] Course & Med Decision Making Course & Med Decision Making Pertinent Labs and Imaging studies reviewed. (See chart for details) [Patient with chronic abdominal pain without evidence of obstruction or wheezes. Lab work otherwise unremarkable with exception of chronic kidney failure. Patient follow-up with skilled nursing attending. Return precautions reviewed. Dragon Disclaimer Dragon Disclaimer This electronic medical record was generated, in whole or in part, using a voice recognition dictation system. TARSHA MYERS DO January 08, 2017 21:10
[2017-01-08 21:27] VITALS: BP 170/87
== END 2017-01-08 21:33 | disposition home or self-care (01) ==
LOC: ER 18:52
DX: G89.29 Other chronic pain (principal); R10.9 Unspecified abdominal pain; R19.7 Diarrhea, unspecified; R11.0 Nausea; F41.9 Anxiety disorder, unspecified; F32.9 Major depressive disorder, single episode, unspecified; K21.9 Gastro-esophageal reflux disease without esophagitis; E78.00 Pure hypercholesterolemia, unspecified; G47.00 Insomnia, unspecified; I12.9 Hypertensive chronic kidney disease with stage 1 through stage 4 chronic kidney disease, or unspecified chronic kidney disease; N18.9 Chronic kidney disease, unspecified; Z90.49 Acquired absence of other specified parts of digestive tract; Z88.0 Allergy status to penicillin; Z88.5 Allergy status to narcotic agent; Z88.8 Allergy status to other drugs, medicaments and biological substances
CPT/HCPCS: 36415; 74176; 80053; 83690; 85027; 96374; 96375; 99285; J2405; J3010

== ENCOUNTER 2017-02-28 17:18 | Inpatient (IN) | payer MEDICARE, OTHER ==
[~2017-02-28] VITALS: Ht 154.9 cm; Wt 77.7 kg
[~2017-02-28 17:18] MED LIST changes: +ARIP5TAB13 PO; -ARIP5TAB6 PO; +DOCU-109 PO; -DOCU-27 PO
[2017-02-28] MEDS ORDERED: ONDANSETRON PF 4 MG/2 ML VIAL. IV ONE (18:00)
[2017-02-28] MEDS ORDERED: HYDROmorphone 2 MG/ML VIAL IV ONE (18:00)
--- NOTE | 2017-02-28 18:02 | PHYS DOC ---
Past Medical History Past Medical History: Anemia, Anxiety, Depression, GERD, High Cholesterol, Hypertension, Renal Disease, Renal Failure Additional Past Medical Histor: spina bifida- paraplegia, thyroid disease, insomnia, Dialysis Past Surgical History: Appendectomy, Cholecystectomy Additional Past Surgical Histo: stoma to abdomen, L kidney removed, ? bladder removed, hiatal hernia Additional Information: quit smoking marijuana 10 years ago Alcohol Use: Rarely Drug Use: None Adult General Chief Complaint Chief Complaint: CONSTIPATION HPI HPI Patient is a 62 year old male with a history of spina bifida lives in a [facility] and has chronic constipation end-stage renal disease on dialysis who presents with [1 day history of progressive generalized abdominal pain he believes is related to constipation he has not had a bowel movement in 3 days; no fever, does not make urine; nausea and 2 episodes of dry heaves. Reports history of cholecystectomy, appendectomy, a urostomy, and nephrectomy.] Review of Systems Review of Systems Constitutional: Denies fever or chills [] Eyes: Denies change in visual acuity, redness, or eye pain [] HENT: Denies nasal congestion or sore throat [] Respiratory: Denies cough or shortness of breath [] Cardiovascular: No additional information not addressed in HPI [] GI: Denies abdominal pain, nausea, vomiting, bloody stools or diarrhea [] : Makes no urine [] Musculoskeletal: Denies back pain or joint pain [] Integument: Denies rash or skin lesions [] Neurologic: Denies headache, focal weakness or sensory changes [] Endocrine: Denies polyuria or polydipsia All systems negative except as mentioned in the history of present illness] Current Medications Current Medications Current Medications Medications (Trade) Dose Ordered Sig/Pema Start Time Stop Time Status Last Admin Dose Admin Hydromorphone HCl (Dilaudid) 0.5 mg 1X ONCE 02/28/17 19:15 02/28/17 19:16 DC 02/28/17 19:40 0.5 MG Iohexol (Omnipaque 300 Mg/ml) 75 ml 1X ONCE 02/28/17 18:15 02/28/17 18:16 DC Morphine Sulfate 4 mg PRN Q2HR PRN 02/28/17 20:45 03/01/17 20:44 02/28/17 21:13 4 MG Ondansetron HCl (Zofran Odt) 4 mg 1X ONCE 02/28/17 19:15 02/28/17 19:16 DC 02/28/17 19:41 4 MG Ondansetron HCl (Zofran) 4 mg PRN Q8HRS PRN 02/28/17 20:45 03/01/17 20:44 02/28/17 21:13 4 MG Sodium Chloride 500 ml @ 250 mls/hr 1X ONCE 02/28/17 21:00 02/28/17 22:59 02/28/17 21:11 250 MLS/HR Allergies Allergies Allergies Coded Allergies Type Severity Reaction Last Updated Verified Sulfa (Sulfonamide Antibiotics) Allergy Intermediate 03/08/16 Yes amoxicillin Allergy Intermediate 03/08/16 Yes gabapentin Allergy Intermediate 03/08/16 Yes pregabalin Allergy Intermediate 03/08/16 Yes Physical Exam Physical Exam Constitutional: Well developed, well nourished, no acute distress, non-toxic appearance. [] HENT: Normocephalic, atraumatic, bilateral external ears normal, oropharynx moist, no oral exudates, nose normal. [] Eyes: PERRLA, EOMI, conjunctiva normal, no discharge. [] Neck: Normal range of motion, no tenderness, supple, no stridor. [] Cardiovascular:Heart rate regular rhythm, no murmur [] Lungs & Thorax: Bilateral breath sounds clear to auscultation [] Abdomen: Bowel sounds normal, soft, distended mild to moderately diffusely tender, no pulsatile masses, urostomy stoma is visualized and pink. [] Skin: Warm, dry, no erythema, no rash. [] Back: No tenderness, no CVA tenderness. [] Extremities: No tenderness, no cyanosis, no clubbing, ROM intact, no edema. [] Neurologic: Alert and oriented X 3, normal motor function except for spina bifida deficits in the lower extremities, normal sensory function, no focal deficits noted. [] Psychologic: Affect normal, judgement normal, mood normal. [] Current Patient Data Vital Signs Vital Signs Date Time Temp Pulse Resp B/P (MAP) Pulse Ox O2 Delivery O2 Flow Rate FiO2 02/28/17 20:47 84 22 103/57 (72) 94 Room Air 02/28/17 17:25 99.0 99.0 Lab Values Laboratory Tests Test 02/28/17 18:15 White Blood Count 5.4 x10^3/uL (4.0-11.0) Red Blood Count 3.14 x10^6/uL (4.30-5.70) L Hemoglobin 11.1 g/dL (13.0-17.5) L Hematocrit 32.8 % (39.0-53.0) L Mean Corpuscular Volume 104 fL (79-100) H Mean Corpuscular Hemoglobin 35 pg (25-35) Mean Corpuscular Hemoglobin Concent 34 g/dL (31-37) Red Cell Distribution Width 14.0 % (11.5-14.5) Platelet Count 139 x10^3/uL (140-400) L Neutrophils (%) (Auto) 85 % (31-73) H Lymphocytes (%) (Auto) 4 % (24-48) L Monocytes (%) (Auto) 10 % (0-9) H Eosinophils (%) (Auto) 0 % (0-3) Basophils (%) (Auto) 0 % (0-3) Neutrophils # (Auto) 4.6 x10^3uL (1.8-7.7) Lymphocytes # (Auto) 0.2 x10^3/uL (1.0-4.8) L Monocytes # (Auto) 0.6 x10^3/uL (0.0-1.1) Eosinophils # (Auto) 0.0 x10^3/uL (0.0-0.7) Basophils # (Auto) 0.0 x10^3/uL (0.0-0.2) Segmented Neutrophils % 85 % (35-66) H Band Neutrophils % 4 % (0-9) Lymphocytes % 8 % (24-48) L Monocytes % 3 % (0-10) Platelet Estimate Adequate (ADEQUATE) Polychromasia Slight Ovalocytes Occ Sodium Level 132 mmol/L (136-145) L Potassium Level 5.9 mmol/L (3.5-5.1) H Chloride Level 92 mmol/L (98-107) L Carbon Dioxide Level 15 mmol/L (21-32) L Anion Gap 25 (6-14) H Blood Urea Nitrogen 94 mg/dL (8-26) H Creatinine 7.8 mg/dL (0.7-1.3) H Estimated GFR (Cockcroft-Gault) 7.1 BUN/Creatinine Ratio 12 (6-20) Glucose Level 125 mg/dL (70-99) H Calcium Level 9.1 mg/dL (8.5-10.1) Total Bilirubin 0.7 mg/dL (0.2-1.0) Aspartate Amino Transferase (AST) 12 U/L (15-37) L Alanine Aminotransferase (ALT) 18 U/L (16-63) Alkaline Phosphatase 97 U/L (46-116) Total Protein 7.3 g/dL (6.4-8.2) Albumin 3.8 g/dL (3.4-5.0) Albumin/Globulin Ratio 1.1 (1.0-1.7) Lipase 72 U/L (73-393) L Laboratory Tests 02/28/17 18:15 Laboratory Tests 02/28/17 18:15 EKG EKG EKG shows normal sinus rhythm rate of 86 no STEMI QTC normal no peaked T waves my interpretation [] Radiology/Procedures Radiology/Procedures CT scan abdomen and pelvis : Review of radiology report demonstrates a small bowel obstruction no perforation. [] Course & Med Decision Making Course & Med Decision Making Pertinent Labs and Imaging studies reviewed. (See chart for details) Plan will be symptomatic care lab work and a CT scan of the abdomen and pelvis CT showed a small bowel obstruction given his comorbid issues combined we will definitely plan on admit admitting to the hospital. Discussed case with Dr. Fernandez who agrees to admit the patient I have put in orders for consultation for nephrology and GI has seen him before for the same problem. On repeat exam at 2030 p.m. patient does not have a surgical abdomen but is still mildly tender that's generalized. Potassium was slightly elevated at 5.9 there is no evidence of peaked T waves and he will be getting dialyzed tomorrow. Immediate treatment of the potassium will be handled by giving him some IV fluids. [] Dragon Disclaimer Dragon Disclaimer This electronic medical record was generated, in whole or in part, using a voice recognition dictation system. Departure Departure Impression: Primary Impression: Small bowel obstruction Additional Impressions: ESRD (end stage renal disease) on dialysis Hyperkalemia Constipation Disposition: ADMITTED INPATIENT Condition: STABLE Referrals: WAYLON CONCEPCION MD (PCP) Problem Qualifiers IRISH LUQUE MD Feb 28, 2017 18:02
[2017-02-28] MEDS ORDERED: IOHEXOL 300 MG/ML 75 ML VIAL IV ONE (18:15)
[2017-02-28 18:24] LABS: BASO % 0 % (0-3); EOS % 0 % (0-3); HEMATOCRIT 32.8 % (39.0-53.0); HEMOGLOBIN 11.1 g/dL (13.0-17.5); LYMPH # 0.2 x10^3/uL (1.0-4.8); LYMPH % 4 % (24-48); MEAN CORPUSCULAR HEMOGLOBIN 35 pg (25-35); MEAN CORPUSCULAR HGB CONC 34 g/dL (31-37); MEAN CORPUSCULAR VOLUME 104 fL (79-100); MONO % 10 % (0-9); NEUT % 85 % (31-73); PLATELET COUNT 139 x10^3/uL (140-400); RED BLOOD COUNT 3.14 x10^6/uL (4.30-5.70); WHITE BLOOD COUNT 5.4 x10^3/uL (4.0-11.0)
[2017-02-28 18:30] LABS: CALCIUM 9.1 mg/dL (8.5-10.1); CREATININE 7.8 mg/dL (0.7-1.3); GFR 7.1; POTASSIUM 5.9 mmol/L (3.5-5.1)
[2017-02-28 18:37] LABS: ALBUMIN 3.8 g/dL (3.4-5.0); ALBUMIN/GLOBULIN RATIO 1.1 (1.0-1.7); TOTAL BILIRUBIN 0.7 mg/dL (0.2-1.0); TOTAL PROTEIN 7.3 g/dL (6.4-8.2)
[2017-02-28 19:00] LABS: OVALOCYTES OCC; PLT ESTIMATE ADEQUATE (ADEQUATE); POLYCHROMASIA SLIGHT
[2017-02-28] MEDS ORDERED: HYDROmorphone 2 MG/ML VIAL IM ONE (19:15)
[2017-02-28] MEDS ORDERED: ONDANSETRON ODT 4 MG TAB.RAPDIS. PO ONE (19:15)
--- NOTE | 2017-02-28 20:00 | RAD ---
CT ABDOMEN/PELVIS Indication: abd pain
piror sent Technique: Multiple contiguous axial images were obtained through the abdomen and pelvis. Coronal and sagittal reformations were created. PQRS STATEMENT One or more of the following in the visualized dose reduction techniques were utilized for this study: 1. Automatic exposure control, 2. Adjustment of the mA and/or kV according to patient size, 3. Use of iterative reconstruction technique ---- Comparison: November 01, 2016 and January 08, 2017 Findings: The small bowel loops are dilated suggestive of ileus or obstruction. No pneumoperitoneum or pneumatosis. A focal transition point is not recognized. There is a hyperdense fluid collection in the right abdomen which is been present over several previous exams and could represent sequelae of a ureteral diversion. The left kidney is surgically absent. The right kidney is atrophic again demonstrates a low-attenuation lesion arising from the superior pole which probably represents a cyst. Lung bases are clear. Heart size is normal. Evaluation of the abdominal viscera is limited in the absence of IV contrast. The liver and spleen are normal in size. Again noted is a hypodense lesion involving the medial aspect of the spleen which is unchanged and could represent a splenic cyst. The pancreas demonstrates no signs of inflammation. The adrenal glands are unremarkable. There is no ascites. There is bilateral hip dysplasia with dislocations. IMPRESSION: There is dilatation of small bowel loops suggestive of obstruction or ileus. No pneumatosis or pneumoperitoneum. Chronic and postoperative changes as above. Electronically signed by: Ugo Seo MD (02/28/2017 7:57 PM) [facility]
[2017-02-28] MEDS ORDERED: IV NORMAL SALINE 500ML BAG 500 ML IV ONE (21:00)
[2017-02-28] MEDS: MORPHINE SULFATE 4 MG/ML DISP.SYRIN. IV PRN (21:13)
[2017-02-28] MEDS: ONDANSETRON PF 4 MG/2 ML VIAL. IV PRN (21:13)
[2017-02-28] MEDS: IV NORMAL SALINE 1000ML BAG 1,000 ML IV SCH (21:40)
[2017-02-28 23:00] VITALS: BP 143/82
[2017-02-28] MEDS ORDERED: SODIUM POLYSTYRENE SULFONATE 15 GM/60 ML ORAL.SUSP. PO ONE (23:00)
[2017-02-28 23:30] VITALS: BP 143/82
[2017-03-01] MEDS: MORPHINE SULFATE 4 MG/ML DISP.SYRIN. IV PRN ×5 (00:13→17:11)
[2017-03-01 03:00] VITALS: BP 150/82
--- NOTE | 2017-03-01 05:09 | ACF ---
Admission Forms Criteria INTESTINAL OBSTRUCTION Clinical Indications for Admission to Inpatient Care (Place 'X' for any and all applicable criteria): Admission is indicated for ANY ONE of the following (1)(2)(3)(4)(5): [X]I. Partial bowel obstruction [ ]II. Complete bowel obstruction Extended stay beyond goal length of stay may be needed for(1)(4)(12(: [ ]a) Identified etiology (eg, hernia, volvulus, cancer with obstruction) requiring intervention [ ]b) Gallstone ileus [ ]c) Surgical intervention [ ]d) Acute comorbid illness (eg, electrolyte imbalance, hypovolemia, renal failure) The original [employer] content created by [employer] has been revised. The portions of the content which have been revised are identified through the use of italic text or in bold, and [facility] has neither reviewed nor approved the modified material. All other unmodified content is copyright [employer]. Please see references footnoted in the original [employer] edition 2016 Admission Criteria Met?: Yes DANIEL WALKER Mar 01, 2017 05:09
[2017-03-01] MEDS: ONDANSETRON PF 4 MG/2 ML VIAL. IV PRN ×2 (05:10→17:22)
--- NOTE | 2017-03-01 06:42 | EKG ---
[facility] [address] [place] [address] Test Date: 2017-02-28 Test Time: 21:58:11 Pat Name: EDWARD DOOLEY Department: Room: [facility] Gender: M Emts: : 1955 Requested By: IRISH LUQUE Order Number: [id number] Reading MD: Radha Matamoros Measurements Intervals [place] Rate: 86 P: 130 SC: 166 QRS: 172 QRSD: 94 T: 142 QT: 368 QTc: 443 Interpretive Statements SINUS RHYTHM ABNORMAL RIGHT AXIS DEVIATION OTHERWISE NORMAL ECG Electronically Signed On 03-06-2017 14:49:02 CDT by Radha Matamoros
[2017-03-01 07:00] VITALS: BP 148/87
[2017-03-01] MEDS: IV NORMAL SALINE 1000ML BAG 1,000 ML IV SCH (09:59)
--- NOTE | 2017-03-01 10:28 | PDOC2 ---
GI CONSULT Reason For Consult: SBO HPI: HPI: 62 y/o male previously evaluated by Dr. Bello. H/o chronic abd pain and spinal/narcotic-induced constipation. Tells me readmitted for worsening abd pain, bloating, dry-heaves, and constipation mixed w/ watery diarrhea. CT showed dilated loops of small bowel concerning for obstruction/ileus. Tells me has been taking PO Relistor about QOD (doesn't use on days he has dialysis), also still using Linzess and Miralax. Passing gas today, still feels uncomfortable/bloated. PMH: PMH: HTN, ESRD on dialysis, spina bifida w/ paraplegia, seizure disorder, chronic pain syndrome, HLD, hypothyoirism, anxiety/depression, appendectomy, cholecystectomy, nephrectomy, incisional hernia repair, bladder surgery/ileal conduit Social History: ALCOHOL: none Drugs: Marijuana ROS: GEN: Denies fevers, chills, sweats HEENT: Denies blurred vision, sore throat CV: Denies chest pain RESP: Denies shortness of air, cough GI: Per HPI : Denies hematuria, dysuria ENDO: Denies weight changes NEURO: Denies confusion, dizziness MSK: +pain SKIN: Denies jaundice, pruritus Vitals: Vitals: Vital Signs Date Time Temp Pulse Resp B/P (MAP) Pulse Ox O2 Delivery O2 Flow Rate FiO2 03/01/17 07:00 99.2 88 22 148/87 (107) 92 Room Air 99.2 Labs: Labs: Laboratory Tests Test 02/28/17 18:15 White Blood Count 5.4 x10^3/uL (4.0-11.0) Red Blood Count 3.14 x10^6/uL (4.30-5.70) Hemoglobin 11.1 g/dL (13.0-17.5) Hematocrit 32.8 % (39.0-53.0) Mean Corpuscular Volume 104 fL (79-100) Mean Corpuscular Hemoglobin 35 pg (25-35) Mean Corpuscular Hemoglobin Concent 34 g/dL (31-37) Red Cell Distribution Width 14.0 % (11.5-14.5) Platelet Count 139 x10^3/uL (140-400) Neutrophils (%) (Auto) 85 % (31-73) Lymphocytes (%) (Auto) 4 % (24-48) Monocytes (%) (Auto) 10 % (0-9) Eosinophils (%) (Auto) 0 % (0-3) Basophils (%) (Auto) 0 % (0-3) Neutrophils # (Auto) 4.6 x10^3uL (1.8-7.7) Lymphocytes # (Auto) 0.2 x10^3/uL (1.0-4.8) Monocytes # (Auto) 0.6 x10^3/uL (0.0-1.1) Eosinophils # (Auto) 0.0 x10^3/uL (0.0-0.7) Basophils # (Auto) 0.0 x10^3/uL (0.0-0.2) Segmented Neutrophils % 85 % (35-66) Band Neutrophils % 4 % (0-9) Lymphocytes % 8 % (24-48) Monocytes % 3 % (0-10) Platelet Estimate Adequate (ADEQUATE) Polychromasia Slight Ovalocytes Occ Sodium Level 132 mmol/L (136-145) Potassium Level 5.9 mmol/L (3.5-5.1) Chloride Level 92 mmol/L (98-107) Carbon Dioxide Level 15 mmol/L (21-32) Anion Gap 25 (6-14) Blood Urea Nitrogen 94 mg/dL (8-26) Creatinine 7.8 mg/dL (0.7-1.3) Estimated GFR (Cockcroft-Gault) 7.1 BUN/Creatinine Ratio 12 (6-20) Glucose Level 125 mg/dL (70-99) Calcium Level 9.1 mg/dL (8.5-10.1) Total Bilirubin 0.7 mg/dL (0.2-1.0) Aspartate Amino Transf (AST/SGOT) 12 U/L (15-37) Alanine Aminotransferase (ALT/SGPT) 18 U/L (16-63) Alkaline Phosphatase 97 U/L (46-116) Total Protein 7.3 g/dL (6.4-8.2) Albumin 3.8 g/dL (3.4-5.0) Albumin/Globulin Ratio 1.1 (1.0-1.7) Lipase 72 U/L (73-393) Allergies: Coded Allergies: Sulfa (Sulfonamide Antibiotics) (Verified Allergy, Intermediate, 03/08/16) amoxicillin (Verified Allergy, Intermediate, 03/08/16) gabapentin (Verified Allergy, Intermediate, 03/08/16) pregabalin (Verified Allergy, Intermediate, 03/08/16) Medications: Current Medications Medications (Trade) Dose Ordered Sig/Pema Route PRN Reason Start Time Stop Time Status Last Admin Dose Admin Hydromorphone HCl (Dilaudid) 0.5 mg 1X ONCE IM 02/28/17 19:15 02/28/17 19:16 DC 02/28/17 19:40 Ondansetron HCl (Zofran Odt) 4 mg 1X ONCE PO 02/28/17 19:15 02/28/17 19:16 DC 02/28/17 19:41 Ondansetron HCl (Zofran) 4 mg PRN Q8HRS PRN IV NAUSEA/VOMITING 02/28/17 20:45 03/01/17 20:44 03/01/17 05:10 Morphine Sulfate 4 mg PRN Q2HR PRN IV SEVERE PAIN 02/28/17 20:45 03/01/17 20:44 03/01/17 08:24 Sodium Chloride 1,000 ml @ 75 mls/hr [id number] IV 02/28/17 20:39 03/01/17 20:38 02/28/17 21:40 Sodium Chloride 500 ml @ 250 mls/hr 1X ONCE IV 02/28/17 21:00 02/28/17 22:59 DC 02/28/17 21:11 Sodium Polystyrene Sulfonate (Kayexalate) 15 gm 1X ONCE PO 02/28/17 23:00 02/28/17 23:01 DC 02/28/17 23:00 Imaging: Imaging: CT A/P w/o contrast Findings: The small bowel loops are dilated suggestive of ileus or obstruction. No pneumoperitoneum or pneumatosis. A focal transition point is not recognized. There is a hyperdense fluid collection in the right abdomen which is been present over several previous exams and could represent sequelae of a ureteral diversion. The left kidney is surgically absent. The right kidney is atrophic again demonstrates a low-attenuation lesion arising from the superior pole which probably represents a cyst.Lung bases are clear. Heart size is normal. Evaluation of the abdominal viscera is limited in the absence of IV contrast. The liver and spleen are normal in size. Again noted is a hypodense lesion involving the medial aspect of the spleen which is unchanged and could represent a splenic cyst. The pancreas demonstrates no signs of inflammation. The adrenal glands are unremarkable. There is no ascites. There is bilateral hip dysplasia with dislocations. IMPRESSION: There is dilatation of small bowel loops suggestive of obstruction or ileus. No pneumatosis or pneumoperitoneum. Chronic and postoperative changes as above. PE: GEN: NAD HEENT: Atraumatic LUNGS: clear HEART: RRR ABD: BS+ (loudest on left), uncomfortable, urostomy EXTREMITY: No edema SKIN: No rashes, no jaundice NEURO/PSYCH: A & O 3, [place] A/P: A/P: Chronic abd pain, spinal/narcotic-induced constipation, abnormal CT w/ ileus vs SBO -using PO Relistor QOD + Linzess + Miralax -- Continue NPO, will review w/ Dr. Bello. Is passing gas this morning, ?resume Relistor (could do inj.), Linzess, Miralax. CLAUDIA FERRARI Mar 01, 2017 10:28
[2017-03-01 11:00] VITALS: BP 145/89
[2017-03-01] MEDS ORDERED: METHYLNALTREXONE 12 MG/0.6 ML VIAL. SQ SCH (11:00)
--- NOTE | 2017-03-01 11:26 | PDOC2 ---
CONSULT Date of Consult Date of Consult DATE: 03/01/17 TIME: 11:22 Reason for Consult Reason for Consult: ESRD Referring Physician Referring Physician: CARLENE Identification/Chief Complaint Chief Complaint ABD PAIN Problems: Source Source: Chart review, Patient History of Present Illness Reason for Visit: THIS IS A 62 YR OLD ADMITTED WITH ABD PAIN. HE HAS HAD PROBLEMS WITH THIS IN THE PAST DUE TO CONSTIPATION. HE HAS ESRD AND IS ON OP HD ON TTS. LAST HD WAS ON SAT. LABS SHOWED ANEMIA AND HIGH K AND OTHERWISE C/W ESRD Past Medical History Cardiovascular: HTN, Hyperlipidemia CENTRAL NERVOUS SYSTEM: Other GI: Constipation, GERD Heme/Onc: Anemia NOS Psych: Anxiety, Depression Renal/: Chronic renal failure Endocrine: Hypothyroidism, Hyperparathyroidism Past Surgical History Past Surgical History: Appendectomy, Cholecystectomy, Other Family History Family History: Hypertension, Stroke Social History ALCOHOL: none Drugs: Marijuana Lives: Long-Term Current Problem List Problem List Problems Medical Problems: (1) Constipation Status: Acute (2) End stage renal disease on dialysis Status: Acute (3) Hyperkalemia Status: Acute (4) Small bowel obstruction Status: Acute Current Medications Current Medications Current Medications Hydromorphone HCl (Dilaudid) 0.5 mg 1X ONCE IV ; Start 02/28/17 at 18:00; Stop 02/28/17 at 19:14; Status DC Ondansetron HCl (Zofran) 4 mg 1X ONCE IV ; Start 02/28/17 at 18:00; Stop at 19:14; Status DC Iohexol (Omnipaque 300 Mg/ml) 75 ml 1X ONCE IV ; Start 02/28/17 at 18:15; Stop 02/28/17 at 18:16; Status DC Hydromorphone HCl (Dilaudid) 0.5 mg 1X ONCE IM Last administered on 02/28/17 19:40; Start 02/28/17 at 19:15; Stop 02/28/17 at 19:16; Status DC Ondansetron HCl (Zofran Odt) 4 mg 1X ONCE PO Last administered on 02/28/17 19 :41; Start 02/28/17 at 19:15; Stop 02/28/17 at 19:16; Status DC Ondansetron HCl (Zofran) 4 mg PRN Q8HRS PRN IV NAUSEA/VOMITING Last administered on 03/01/17 05:10; Start 02/28/17 at 20:45; Stop 03/01/17 at 20:44 Morphine Sulfate 4 mg PRN Q2HR PRN IV SEVERE PAIN Last administered on 08:24; Start 02/28/17 at 20:45; Stop 03/01/17 at 20:44 Sodium Chloride 1,000 ml @ 75 mls/hr [id number] IV Last administered on 21:40; Start 02/28/17 at 20:39; Stop 03/01/17 at 20:38 Sodium Chloride 500 ml @ 250 mls/hr 1X ONCE IV Last administered on 21:11; Start 02/28/17 at 21:00; Stop 02/28/17 at 22:59; Status DC Sodium Polystyrene Sulfonate (Kayexalate) 15 gm 1X ONCE PO Last administered on 02/28/17 23:00; Start 02/28/17 at 23:00; Stop 02/28/17 at 23:01; Status DC Methylnaltrexone [place] (Relistor) 12 mg DAILY SQ ; Start 03/01/17 at 11:00 Active Scripts Active Linzess (Linaclotide) 290 Mcg Capsule 290 Mcg PO DAILY Colace (Docusate Sodium) 100 Mg Capsule 1 Cap PO BID Famotidine 20 Mg Tablet 20 Mg PO BID 14 Days Reported Tums (Calcium Carbonate) 200 Mg Tab.chew 500 Mg PO HS Bisacodyl 5 Mg Tablet.dr 5 Mg PO Q12HR PRN Abilify (Aripiprazole) 5 Mg Tablet 7.5 Mg PO DAILY Zolpidem Tartrate 10 Mg Tablet 1 Tab PO QHS Zoloft (Sertraline Hcl) 100 Mg Tablet 2 Tab PO DAILY Tylenol (Acetaminophen) 325 Mg Tablet 650 Mg PO Q6HRS Trazodone Hcl 50 Mg Tablet 1 Tab PO QHS Reglan (Metoclopramide Hcl) 10 Mg Tablet 5 Mg PO TID Calcium Acetate 667 Mg Tablet 667 Mg PO TIDWMEALS Omeprazole 20 Mg Capsule.dr 1 Cap PO DAILY Norvasc (Amlodipine Besylate) 5 Mg Tablet 1 Tab PO BID Nitrostat (Nitroglycerin) 0.4 Mg Tab.subl 0.4 Mg SL PRN Q10MIN PRN Nephro-Dangelo Tablet (Folic Acid/Vitamin B Comp W-C) 0.8 Mg Tablet 1 Tab PO DAILY Mirtazapine 15 Mg Tablet 1 Tab PO QHS Miralax (Polyethylene Glycol 3350) 17 Gm Powd.pack 1 Packet PO BID Lidocaine-Prilocaine Cream (Lidocaine/Prilocaine) 30 Gm Cream..g. 1 Adrienne TP UD Levothyroxine Sodium 75 Mcg Tablet 1 Tab PO DAILY Cymbalta (Duloxetine Hcl) 30 Mg Capsule.dr 3 Cap PO DAILY Clonidine Hcl 0.1 Mg Tablet 0.1 Mg PO DAILY Clonazepam 2 Mg Tablet 1 Tab PO QHS Calcium Carbonate 650 Mg Tablet 1,000 Mg PO QHS Allergies Allergies: Coded Allergies: Sulfa (Sulfonamide Antibiotics) (Verified Allergy, Intermediate, 03/08/16) amoxicillin (Verified Allergy, Intermediate, 03/08/16) gabapentin (Verified Allergy, Intermediate, 03/08/16) pregabalin (Verified Allergy, Intermediate, 03/08/16) ROS General: YES: Fatigue, Malaise, Appetite PSYCHOLOGICAL ROS: YES: Anxiety, Depression Eyes: Yes Decreased vision HEENT: YES: Heacaches Respiratory: YES: Cough Gastrointestinal: Yes Abdominal Pain, Yes Constipation Genitourinary: YES Other (ANURIA) Musculoskeletal: Yes Muscular Weakness Neurological: Yes Weakness Skin: Yes Dry Skin Physical Exam General: Alert, Oriented X3, Cooperative, No acute distress, mild distress HEENT: Atraumatic, PERRLA, Mucous membr. moist/pink Lungs: Clear to auscultation, Normal air movement Heart: Regular rate, Normal S1, No murmurs Abdomen: Other (SOME DISTENTION WITH TENDERNESS MOSTLY IN THE LOWER QUADRANTS) Extremities: No clubbing, No cyanosis Skin: No rashes Neuro: Normal speech, Cranial nerves 3-12 NL Psych/Mental Status: Mental status NL, Mood NL MUSCULOSKELETAL: No joint tenderness, No swelling Vitals VITALS Vital Signs Date Time Temp Pulse Resp B/P (MAP) Pulse Ox O2 Delivery O2 Flow Rate FiO2 03/01/17 07:00 99.2 88 22 148/87 (107) 92 Room Air 99.2 Labs Labs Laboratory Tests Test 02/28/17 18:15 White Blood Count 5.4 x10^3/uL (4.0-11.0) Red Blood Count 3.14 x10^6/uL (4.30-5.70) Hemoglobin 11.1 g/dL (13.0-17.5) Hematocrit 32.8 % (39.0-53.0) Mean Corpuscular Volume 104 fL (79-100) Mean Corpuscular Hemoglobin 35 pg (25-35) Mean Corpuscular Hemoglobin Concent 34 g/dL (31-37) Red Cell Distribution Width 14.0 % (11.5-14.5) Platelet Count 139 x10^3/uL (140-400) Neutrophils (%) (Auto) 85 % (31-73) Lymphocytes (%) (Auto) 4 % (24-48) Monocytes (%) (Auto) 10 % (0-9) Eosinophils (%) (Auto) 0 % (0-3) Basophils (%) (Auto) 0 % (0-3) Neutrophils # (Auto) 4.6 x10^3uL (1.8-7.7) Lymphocytes # (Auto) 0.2 x10^3/uL (1.0-4.8) Monocytes # (Auto) 0.6 x10^3/uL (0.0-1.1) Eosinophils # (Auto) 0.0 x10^3/uL (0.0-0.7) Basophils # (Auto) 0.0 x10^3/uL (0.0-0.2) Segmented Neutrophils % 85 % (35-66) Band Neutrophils % 4 % (0-9) Lymphocytes % 8 % (24-48) Monocytes % 3 % (0-10) Platelet Estimate Adequate (ADEQUATE) Polychromasia Slight Ovalocytes Occ Sodium Level 132 mmol/L (136-145) Potassium Level 5.9 mmol/L (3.5-5.1) Chloride Level 92 mmol/L (98-107) Carbon Dioxide Level 15 mmol/L (21-32) Anion Gap 25 (6-14) Blood Urea Nitrogen 94 mg/dL (8-26) Creatinine 7.8 mg/dL (0.7-1.3) Estimated GFR (Cockcroft-Gault) 7.1 BUN/Creatinine Ratio 12 (6-20) Glucose Level 125 mg/dL (70-99) Calcium Level 9.1 mg/dL (8.5-10.1) Total Bilirubin 0.7 mg/dL (0.2-1.0) Aspartate Amino Transf (AST/SGOT) 12 U/L (15-37) Alanine Aminotransferase (ALT/SGPT) 18 U/L (16-63) Alkaline Phosphatase 97 U/L (46-116) Total Protein 7.3 g/dL (6.4-8.2) Albumin 3.8 g/dL (3.4-5.0) Albumin/Globulin Ratio 1.1 (1.0-1.7) Lipase 72 U/L (73-393) Laboratory Tests Test 02/28/17 18:15 White Blood Count 5.4 x10^3/uL (4.0-11.0) Red Blood Count 3.14 x10^6/uL (4.30-5.70) Hemoglobin 11.1 g/dL (13.0-17.5) Hematocrit 32.8 % (39.0-53.0) Mean Corpuscular Volume 104 fL (79-100) Mean Corpuscular Hemoglobin 35 pg (25-35) Mean Corpuscular Hemoglobin Concent 34 g/dL (31-37) Red Cell Distribution Width 14.0 % (11.5-14.5) Platelet Count 139 x10^3/uL (140-400) Neutrophils (%) (Auto) 85 % (31-73) Lymphocytes (%) (Auto) 4 % (24-48) Monocytes (%) (Auto) 10 % (0-9) Eosinophils (%) (Auto) 0 % (0-3) Basophils (%) (Auto) 0 % (0-3) Neutrophils # (Auto) 4.6 x10^3uL (1.8-7.7) Lymphocytes # (Auto) 0.2 x10^3/uL (1.0-4.8) Monocytes # (Auto) 0.6 x10^3/uL (0.0-1.1) Eosinophils # (Auto) 0.0 x10^3/uL (0.0-0.7) Basophils # (Auto) 0.0 x10^3/uL (0.0-0.2) Segmented Neutrophils % 85 % (35-66) Band Neutrophils % 4 % (0-9) Lymphocytes % 8 % (24-48) Monocytes % 3 % (0-10) Platelet Estimate Adequate (ADEQUATE) Polychromasia Slight Ovalocytes Occ Sodium Level 132 mmol/L (136-145) Potassium Level 5.9 mmol/L (3.5-5.1) Chloride Level 92 mmol/L (98-107) Carbon Dioxide Level 15 mmol/L (21-32) Anion Gap 25 (6-14) Blood Urea Nitrogen 94 mg/dL (8-26) Creatinine 7.8 mg/dL (0.7-1.3) Estimated GFR (Cockcroft-Gault) 7.1 BUN/Creatinine Ratio 12 (6-20) Glucose Level 125 mg/dL (70-99) Calcium Level 9.1 mg/dL (8.5-10.1) Total Bilirubin 0.7 mg/dL (0.2-1.0) Aspartate Amino Transf (AST/SGOT) 12 U/L (15-37) Alanine Aminotransferase (ALT/SGPT) 18 U/L (16-63) Alkaline Phosphatase 97 U/L (46-116) Total Protein 7.3 g/dL (6.4-8.2) Albumin 3.8 g/dL (3.4-5.0) Albumin/Globulin Ratio 1.1 (1.0-1.7) Lipase 72 U/L (73-393) Assessment/Plan Assessment/Plan IMP CONSTIPATION OBSTIPATION ABD PAIN ANEMIA SPINA BIFIDA ESRD HYPERKALEMIA PLAN GI EVAL AND TX HD TODAY UF TO DW LOW FLOW PPN TILL EATING WELL KELLY CALHOUN MD Mar 01, 2017 11:26
--- NOTE | 2017-03-01 14:17 | PDOC1 ---
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[employer] who was admitted yet again with an other episode of constipation abdominal distension nausea and vomiting Past Medical History Cardiovascular: HTN, Hyperlipidemia CENTRAL NERVOUS SYSTEM: Other GI: Constipation, GERD Heme/Onc: Anemia NOS Psych: Anxiety, Depression Renal/: Chronic renal failure Endocrine: Hypothyroidism, Hyperparathyroidism Past Surgical History Past Surgical History: Appendectomy, Cholecystectomy, Other Family History Family History: Hypertension, Stroke Social History Smoke: No ALCOHOL: none Drugs: None, Marijuana Current Problem List Problem List Problems Medical Problems: (1) Constipation Status: Acute (2) End stage renal disease on dialysis Status: Acute (3) Hyperkalemia Status: Acute (4) Small bowel obstruction Status: Acute Current Medications Current Medications Current Medications Medications (Trade) Dose Ordered Sig/Pema Start Time Stop Time Status Last Admin Dose Admin Hydromorphone HCl (Dilaudid) 0.5 mg 1X ONCE 02/28/17 19:15 02/28/17 19:16 DC 02/28/17 19:40 0.5 MG Iohexol (Omnipaque 300 Mg/ml) 75 ml 1X ONCE 02/28/17 18:15 02/28/17 18:16 DC Methylnaltrexone [place] (Relistor) 12 mg DAILY 03/01/17 11:00 Morphine Sulfate 4 mg PRN Q2HR PRN 02/28/17 20:45 03/01/17 20:44 03/01/17 12:31 4 MG Ondansetron HCl (Zofran Odt) 4 mg 1X ONCE 02/28/17 19:15 02/28/17 19:16 DC 02/28/17 19:41 4 MG Ondansetron HCl (Zofran) 4 mg PRN Q8HRS PRN 02/28/17 20:45 03/01/17 20:44 03/01/17 05:10 4 MG Sodium Polystyrene Sulfonate (Kayexalate) 15 gm 1X ONCE 02/28/17 23:00 02/28/17 23:01 DC 02/28/17 23:00 15 GM Sodium Chloride 500 ml @ 250 mls/hr 1X ONCE 02/28/17 21:00 02/28/17 22:59 DC 02/28/17 21:11 250 MLS/HR Allergies Allergies Allergies Coded Allergies Type Severity Reaction Last Updated Verified Sulfa (Sulfonamide Antibiotics) Allergy Intermediate 03/08/16 Yes amoxicillin Allergy Intermediate 03/08/16 Yes gabapentin Allergy Intermediate 03/08/16 Yes pregabalin Allergy Intermediate 03/08/16 Yes ROS Review of System CONSTITUTIONAL: No fever or chills EYES: No recent changes SKIN: No rash or itching CARDIOVASCULAR: No chest pain, syncope, palpitations, or edema RESPIRATORY: No SOB or cough GASTROINTESTINAL: No nausea, vomiting or abdominal pain NEUROLOGICAL: No headaches or weakness ENDOCRINE: No cold or heat intolerance GENITOURINARY: No urgency or frequency of urination MUSCULOSKELETAL: No back pain or joint pain LYMPHATICS: No enlarged lymph nodes PSYCHIATRIC: No anxiety or depression Physical Exam Physical Exam GEN.: No apparent distress. Alert and oriented. HEENT: Head is normocephalic, atraumatic NECK: Supple. LUNGS: Clear to auscultation. HEART: RRR, S1, S2 present. Peripheral pulses intact ABDOMEN: Soft, nontender. Positive bowel sounds. EXTREMITIES: Without any cyanosis. NEUROLOGIC: Normal speech, normal tone PSYCHIATRIC: Normal affect, normal mood. SKIN: No ulcerations Vitals Vitals Vital Signs Date Time Temp Pulse Resp B/P (MAP) Pulse Ox O2 Delivery O2 Flow Rate FiO2 03/01/17 12:31 20 93 Room Air 03/01/17 11:00 98.2 79 145/89 (107) 98.2 Labs Labs Laboratory Tests Test 02/28/17 18:15 White Blood Count 5.4 x10^3/uL (4.0-11.0) Red Blood Count 3.14 x10^6/uL (4.30-5.70) Hemoglobin 11.1 g/dL (13.0-17.5) Hematocrit 32.8 % (39.0-53.0) Mean Corpuscular Volume 104 fL (79-100) Mean Corpuscular Hemoglobin 35 pg (25-35) Mean Corpuscular Hemoglobin Concent 34 g/dL (31-37) Red Cell Distribution Width 14.0 % (11.5-14.5) Platelet Count 139 x10^3/uL (140-400) Neutrophils (%) (Auto) 85 % (31-73) Lymphocytes (%) (Auto) 4 % (24-48) Monocytes (%) (Auto) 10 % (0-9) Eosinophils (%) (Auto) 0 % (0-3) Basophils (%) (Auto) 0 % (0-3) Neutrophils # (Auto) 4.6 x10^3uL (1.8-7.7) Lymphocytes # (Auto) 0.2 x10^3/uL (1.0-4.8) Monocytes # (Auto) 0.6 x10^3/uL (0.0-1.1) Eosinophils # (Auto) 0.0 x10^3/uL (0.0-0.7) Basophils # (Auto) 0.0 x10^3/uL (0.0-0.2) Segmented Neutrophils % 85 % (35-66) Band Neutrophils % 4 % (0-9) Lymphocytes % 8 % (24-48) Monocytes % 3 % (0-10) Platelet Estimate Adequate (ADEQUATE) Polychromasia Slight Ovalocytes Occ Sodium Level 132 mmol/L (136-145) Potassium Level 5.9 mmol/L (3.5-5.1) Chloride Level 92 mmol/L (98-107) Carbon Dioxide Level 15 mmol/L (21-32) Anion Gap 25 (6-14) Blood Urea Nitrogen 94 mg/dL (8-26) Creatinine 7.8 mg/dL (0.7-1.3) Estimated GFR (Cockcroft-Gault) 7.1 BUN/Creatinine Ratio 12 (6-20) Glucose Level 125 mg/dL (70-99) Calcium Level 9.1 mg/dL (8.5-10.1) Total Bilirubin 0.7 mg/dL (0.2-1.0) Aspartate Amino Transf (AST/SGOT) 12 U/L (15-37) Alanine Aminotransferase (ALT/SGPT) 18 U/L (16-63) Alkaline Phosphatase 97 U/L (46-116) Total Protein 7.3 g/dL (6.4-8.2) Albumin 3.8 g/dL (3.4-5.0) Albumin/Globulin Ratio 1.1 (1.0-1.7) Lipase 72 U/L (73-393) Laboratory Tests Test 02/28/17 18:15 White Blood Count 5.4 x10^3/uL (4.0-11.0) Red Blood Count 3.14 x10^6/uL (4.30-5.70) Hemoglobin 11.1 g/dL (13.0-17.5) Hematocrit 32.8 % (39.0-53.0) Mean Corpuscular Volume 104 fL (79-100) Mean Corpuscular Hemoglobin 35 pg (25-35) Mean Corpuscular Hemoglobin Concent 34 g/dL (31-37) Red Cell Distribution Width 14.0 % (11.5-14.5) Platelet Count 139 x10^3/uL (140-400) Neutrophils (%) (Auto) 85 % (31-73) Lymphocytes (%) (Auto) 4 % (24-48) Monocytes (%) (Auto) 10 % (0-9) Eosinophils (%) (Auto) 0 % (0-3) Basophils (%) (Auto) 0 % (0-3) Neutrophils # (Auto) 4.6 x10^3uL (1.8-7.7) Lymphocytes # (Auto) 0.2 x10^3/uL (1.0-4.8) Monocytes # (Auto) 0.6 x10^3/uL (0.0-1.1) Eosinophils # (Auto) 0.0 x10^3/uL (0.0-0.7) Basophils # (Auto) 0.0 x10^3/uL (0.0-0.2) Segmented Neutrophils % 85 % (35-66) Band Neutrophils % 4 % (0-9) Lymphocytes % 8 % (24-48) Monocytes % 3 % (0-10) Platelet Estimate Adequate (ADEQUATE) Polychromasia Slight Ovalocytes Occ Sodium Level 132 mmol/L (136-145) Potassium Level 5.9 mmol/L (3.5-5.1) Chloride Level 92 mmol/L (98-107) Carbon Dioxide Level 15 mmol/L (21-32) Anion Gap 25 (6-14) Blood Urea Nitrogen 94 mg/dL (8-26) Creatinine 7.8 mg/dL (0.7-1.3) Estimated GFR (Cockcroft-Gault) 7.1 BUN/Creatinine Ratio 12 (6-20) Glucose Level 125 mg/dL (70-99) Calcium Level 9.1 mg/dL (8.5-10.1) Total Bilirubin 0.7 mg/dL (0.2-1.0) Aspartate Amino Transf (AST/SGOT) 12 U/L (15-37) Alanine Aminotransferase (ALT/SGPT) 18 U/L (16-63) Alkaline Phosphatase 97 U/L (46-116) Total Protein 7.3 g/dL (6.4-8.2) Albumin 3.8 g/dL (3.4-5.0) Albumin/Globulin Ratio 1.1 (1.0-1.7) Lipase 72 U/L (73-393) VTE Prophylaxis Ordered VTE Prophylaxis Devices: No VTE Pharmacological Prophylaxi: Yes (scds) Assessment/Plan Assessment/Plan Recurrent episodes of constipation which could be due to opioid induced constipation I have discontinued most of his narcotics although he is still on hydrocodone q4h Sigmoid volvolous Multiple previous surgical procedure with resultant adhesions The paln Keep NPO PPN Consult GI team Consult Dr Kline Consult Nephrology team Pain management Antiemetics WAYLON CONCEPCION MD Mar 01, 2017 14:17
--- NOTE | 2017-03-01 14:25 | PN ---
PROGRESS NOTES Subjective Subjective The patient continues to c/o pain, abdominal distension No nausea or vomiting No bowel movement He is not passing gas Objective Objective Vital Signs Date Time Temp Pulse Resp B/P (MAP) Pulse Ox O2 Delivery O2 Flow Rate FiO2 03/01/17 12:31 20 93 Room Air 03/01/17 11:00 98.2 79 145/89 (107) 98.2 Intake and Output 03/01/17 07:00 Intake Total 250 ml Output Total 0 ml Balance 250 ml Intake Oral 0 ml IV Total 250 ml Output Urine Total 0 ml # Bowel Movements 2 Physical Exam Physical Exam Resting propped up in bed having his scheduled HD Vitals are stable Abdomen is still markedly distended with tenderness mostly in LLQ Bowel sound are sluggish COMMENT He was seen by Dr Bello and was started on Relistor Diagnosis DIAGNOSIS 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 PROBLEM LIST Problems Medical Problems: (1) Constipation Status: Acute (2) End stage renal disease on dialysis Status: Acute (3) Hyperkalemia Status: Acute (4) Small bowel obstruction Status: Acute Assessment Assessment Problems Medical Problems: (1) Constipation Status: Acute (2) End stage renal disease on dialysis Status: Acute (3) Hyperkalemia Status: Acute (4) Small bowel obstruction Status: Acute Plan Plan of Care NPO, PPN Pain management antiemetics Awiait evaluation by the surgical team Comment Labs Laboratory Tests Test 02/28/17 18:15 White Blood Count 5.4 x10^3/uL (4.0-11.0) Red Blood Count 3.14 x10^6/uL (4.30-5.70) Hemoglobin 11.1 g/dL (13.0-17.5) Hematocrit 32.8 % (39.0-53.0) Mean Corpuscular Volume 104 fL (79-100) Mean Corpuscular Hemoglobin 35 pg (25-35) Mean Corpuscular Hemoglobin Concent 34 g/dL (31-37) Red Cell Distribution Width 14.0 % (11.5-14.5) Platelet Count 139 x10^3/uL (140-400) Neutrophils (%) (Auto) 85 % (31-73) Lymphocytes (%) (Auto) 4 % (24-48) Monocytes (%) (Auto) 10 % (0-9) Eosinophils (%) (Auto) 0 % (0-3) Basophils (%) (Auto) 0 % (0-3) Neutrophils # (Auto) 4.6 x10^3uL (1.8-7.7) Lymphocytes # (Auto) 0.2 x10^3/uL (1.0-4.8) Monocytes # (Auto) 0.6 x10^3/uL (0.0-1.1) Eosinophils # (Auto) 0.0 x10^3/uL (0.0-0.7) Basophils # (Auto) 0.0 x10^3/uL (0.0-0.2) Segmented Neutrophils % 85 % (35-66) Band Neutrophils % 4 % (0-9) Lymphocytes % 8 % (24-48) Monocytes % 3 % (0-10) Platelet Estimate Adequate (ADEQUATE) Polychromasia Slight Ovalocytes Occ Sodium Level 132 mmol/L (136-145) Potassium Level 5.9 mmol/L (3.5-5.1) Chloride Level 92 mmol/L (98-107) Carbon Dioxide Level 15 mmol/L (21-32) Anion Gap 25 (6-14) Blood Urea Nitrogen 94 mg/dL (8-26) Creatinine 7.8 mg/dL (0.7-1.3) Estimated GFR (Cockcroft-Gault) 7.1 BUN/Creatinine Ratio 12 (6-20) Glucose Level 125 mg/dL (70-99) Calcium Level 9.1 mg/dL (8.5-10.1) Total Bilirubin 0.7 mg/dL (0.2-1.0) Aspartate Amino Transf (AST/SGOT) 12 U/L (15-37) Alanine Aminotransferase (ALT/SGPT) 18 U/L (16-63) Alkaline Phosphatase 97 U/L (46-116) Total Protein 7.3 g/dL (6.4-8.2) Albumin 3.8 g/dL (3.4-5.0) Albumin/Globulin Ratio 1.1 (1.0-1.7) Lipase 72 U/L (73-393) Laboratory Tests Test 02/28/17 18:15 White Blood Count 5.4 x10^3/uL (4.0-11.0) Red Blood Count 3.14 x10^6/uL (4.30-5.70) Hemoglobin 11.1 g/dL (13.0-17.5) Hematocrit 32.8 % (39.0-53.0) Mean Corpuscular Volume 104 fL (79-100) Mean Corpuscular Hemoglobin 35 pg (25-35) Mean Corpuscular Hemoglobin Concent 34 g/dL (31-37) Red Cell Distribution Width 14.0 % (11.5-14.5) Platelet Count 139 x10^3/uL (140-400) Neutrophils (%) (Auto) 85 % (31-73) Lymphocytes (%) (Auto) 4 % (24-48) Monocytes (%) (Auto) 10 % (0-9) Eosinophils (%) (Auto) 0 % (0-3) Basophils (%) (Auto) 0 % (0-3) Neutrophils # (Auto) 4.6 x10^3uL (1.8-7.7) Lymphocytes # (Auto) 0.2 x10^3/uL (1.0-4.8) Monocytes # (Auto) 0.6 x10^3/uL (0.0-1.1) Eosinophils # (Auto) 0.0 x10^3/uL (0.0-0.7) Basophils # (Auto) 0.0 x10^3/uL (0.0-0.2) Segmented Neutrophils % 85 % (35-66) Band Neutrophils % 4 % (0-9) Lymphocytes % 8 % (24-48) Monocytes % 3 % (0-10) Platelet Estimate Adequate (ADEQUATE) Polychromasia Slight Ovalocytes Occ Sodium Level 132 mmol/L (136-145) Potassium Level 5.9 mmol/L (3.5-5.1) Chloride Level 92 mmol/L (98-107) Carbon Dioxide Level 15 mmol/L (21-32) Anion Gap 25 (6-14) Blood Urea Nitrogen 94 mg/dL (8-26) Creatinine 7.8 mg/dL (0.7-1.3) Estimated GFR (Cockcroft-Gault) 7.1 BUN/Creatinine Ratio 12 (6-20) Glucose Level 125 mg/dL (70-99) Calcium Level 9.1 mg/dL (8.5-10.1) Total Bilirubin 0.7 mg/dL (0.2-1.0) Aspartate Amino Transf (AST/SGOT) 12 U/L (15-37) Alanine Aminotransferase (ALT/SGPT) 18 U/L (16-63) Alkaline Phosphatase 97 U/L (46-116) Total Protein 7.3 g/dL (6.4-8.2) Albumin 3.8 g/dL (3.4-5.0) Albumin/Globulin Ratio 1.1 (1.0-1.7) Lipase 72 U/L (73-393) Medications Current Medications Hydromorphone HCl (Dilaudid) 0.5 mg 1X ONCE IV ; Start 02/28/17 at 18:00; Stop 02/28/17 at 19:14; Status DC Ondansetron HCl (Zofran) 4 mg 1X ONCE IV ; Start 02/28/17 at 18:00; Stop at 19:14; Status DC Iohexol (Omnipaque 300 Mg/ml) 75 ml 1X ONCE IV ; Start 02/28/17 at 18:15; Stop 02/28/17 at 18:16; Status DC Hydromorphone HCl (Dilaudid) 0.5 mg 1X ONCE IM Last administered on 02/28/17 19:40; Admin Dose 0.5 MG; Start 02/28/17 at 19:15; Stop 02/28/17 at 19:16; Status DC Ondansetron HCl (Zofran Odt) 4 mg 1X ONCE PO Last administered on 02/28/17 19 :41; Admin Dose 4 MG; Start 02/28/17 at 19:15; Stop 02/28/17 at 19:16; Status DC Ondansetron HCl (Zofran) 4 mg PRN Q8HRS PRN IV NAUSEA/VOMITING Last administered on 03/01/17 05:10; Admin Dose 4 MG; Start 02/28/17 at 20:45; Stop 03/01/17 at 20:44 Morphine Sulfate 4 mg PRN Q2HR PRN IV SEVERE PAIN Last administered on 12:31; Admin Dose 4 MG; Start 02/28/17 at 20:45; Stop 03/01/17 at 20:44 Sodium Chloride 1,000 ml @ 75 mls/hr [id number] IV Last administered on 21:40; Admin Dose 75 MLS/HR; Start 02/28/17 at 20:39; Stop 03/01/17 at 20: 38 Sodium Chloride 500 ml @ 250 mls/hr 1X ONCE IV Last administered on 21:11; Admin Dose 250 MLS/HR; Start 02/28/17 at 21:00; Stop 02/28/17 at 22: 59; Status DC Sodium Polystyrene Sulfonate (Kayexalate) 15 gm 1X ONCE PO Last administered on 02/28/17 23:00; Admin Dose 15 GM; Start 02/28/17 at 23:00; Stop 02/28/17 at 23:01; Status DC Methylnaltrexone [place] (Relistor) 12 mg DAILY SQ ; Start 03/01/17 at 11:00 Active Scripts Active Linzess (Linaclotide) 290 Mcg Capsule 290 Mcg PO DAILY Colace (Docusate Sodium) 100 Mg Capsule 1 Cap PO BID Famotidine 20 Mg Tablet 20 Mg PO BID 14 Days Reported Tums (Calcium Carbonate) 200 Mg Tab.chew 500 Mg PO HS Bisacodyl 5 Mg Tablet.dr 5 Mg PO Q12HR PRN Abilify (Aripiprazole) 5 Mg Tablet 7.5 Mg PO DAILY Zolpidem Tartrate 10 Mg Tablet 1 Tab PO QHS Zoloft (Sertraline Hcl) 100 Mg Tablet 2 Tab PO DAILY Tylenol (Acetaminophen) 325 Mg Tablet 650 Mg PO Q6HRS Trazodone Hcl 50 Mg Tablet 1 Tab PO QHS Reglan (Metoclopramide Hcl) 10 Mg Tablet 5 Mg PO TID Calcium Acetate 667 Mg Tablet 667 Mg PO TIDWMEALS Omeprazole 20 Mg Capsule.dr 1 Cap PO DAILY Norvasc (Amlodipine Besylate) 5 Mg Tablet 1 Tab PO BID Nitrostat (Nitroglycerin) 0.4 Mg Tab.subl 0.4 Mg SL PRN Q10MIN PRN Nephro-Dangelo Tablet (Folic Acid/Vitamin B Comp W-C) 0.8 Mg Tablet 1 Tab PO DAILY Mirtazapine 15 Mg Tablet 1 Tab PO QHS Miralax (Polyethylene Glycol 3350) 17 Gm Powd.pack 1 Packet PO BID Lidocaine-Prilocaine Cream (Lidocaine/Prilocaine) 30 Gm Cream..g. 1 Adrienne TP UD Levothyroxine Sodium 75 Mcg Tablet 1 Tab PO DAILY Cymbalta (Duloxetine Hcl) 30 Mg Capsule.dr 3 Cap PO DAILY Clonidine Hcl 0.1 Mg Tablet 0.1 Mg PO DAILY Clonazepam 2 Mg Tablet 1 Tab PO QHS Calcium Carbonate 650 Mg Tablet 1,000 Mg PO QHS Vitals/I & O Vital Sign - Last 24 Hours 02/28/17 02/28/17 02/28/17 02/28/17 17:25 18:31 20:17 20:17 Temp 99.0 99.0 Pulse 87 87 80 80 Resp 20 20 24 22 B/P (MAP) 151/76 (101) 143/84 (103) 129/81 (97) 129/81 (97) Pulse Ox 94 96 92 92 O2 Delivery Room Air Room Air Room Air Room Air 02/28/17 02/28/17 02/28/17 02/28/17 20:47 21:17 21:51 22:17 Pulse 84 80 87 86 Resp 22 20 22 20 B/P (MAP) 103/57 (72) 157/84 (108) 154/76 (102) 165/96 (119) Pulse Ox 94 95 93 95 O2 Delivery Room Air Room Air Room Air Room Air 02/28/17 02/28/17 02/28/17 02/28/17 22:47 23:00 23:00 23:30 Temp 98.1 98.1 98.1 98.1 Pulse 88 94 94 Resp 22 20 20 B/P (MAP) 162/97 (118) 143/82 (102) 143/82 (102) Pulse Ox 94 95 95 O2 Delivery Room Air Room Air Room Air Room Air 03/01/17 03/01/17 03/01/17 03/01/17 00:13 03:00 04:11 07:00 Temp 98.0 99.2 98.0 99.2 Pulse 80 88 Resp 24 20 16 22 B/P (MAP) 150/82 (104) 148/87 (107) Pulse Ox 95 92 O2 Delivery Room Air Room Air Room Air 03/01/17 03/01/17 11:00 12:31 Temp 98.2 98.2 Pulse 79 Resp 22 20 B/P (MAP) 145/89 (107) Pulse Ox 94 93 O2 Delivery Room Air Room Air Intake and Output 02/28/17 02/28/17 03/01/17 15:00 23:00 07:00 Intake Total 250 ml 0 ml Output Total 0 ml Balance 250 ml 0 ml WAYLON CONCEPCION MD Mar 01, 2017 14:25
--- NOTE | 2017-03-01 15:30 | PDOC2 ---
KEILY MARTIN [employer] CHIEF 03/01/17 1530: CONSULT Date of Consult Date of Consult DATE: 03/01/17 TIME: 15:24 Reason for Consult Reason for Consult: sbo vs ileus Referring Physician Referring Physician: Dr Luo Identification/Chief Complaint Chief Complaint abd pain Problems: Source Source: Chart review, Patient History of Present Illness Reason for Visit: 3 day history of abdominal pain, bloating, diarrhea. He does have a history of chronic constipation. Multiple abdominal surgeries Reports loose stool today, less pain now, + flatus, still some bloating Past Medical History Cardiovascular: HTN, Hyperlipidemia CENTRAL NERVOUS SYSTEM: Other GI: Constipation, GERD Heme/Onc: Anemia NOS Psych: Anxiety, Depression Renal/: Chronic renal failure Endocrine: Hypothyroidism, Hyperparathyroidism Past Surgical History Past Surgical History: Appendectomy, Cholecystectomy, Other Family History Family History: Hypertension, Stroke Social History No ALCOHOL: none Drugs: None, Marijuana Lives: Snf Current Problem List Problem List Problems Medical Problems: (1) Constipation Status: Acute (2) End stage renal disease on dialysis Status: Acute (3) Hyperkalemia Status: Acute (4) Small bowel obstruction Status: Acute Current Medications Current Medications Current Medications Hydromorphone HCl (Dilaudid) 0.5 mg 1X ONCE IV ; Start 02/28/17 at 18:00; Stop 02/28/17 at 19:14; Status DC Ondansetron HCl (Zofran) 4 mg 1X ONCE IV ; Start 02/28/17 at 18:00; Stop at 19:14; Status DC Iohexol (Omnipaque 300 Mg/ml) 75 ml 1X ONCE IV ; Start 02/28/17 at 18:15; Stop 02/28/17 at 18:16; Status DC Hydromorphone HCl (Dilaudid) 0.5 mg 1X ONCE IM Last administered on 02/28/17t 19:40; Start 02/28/17 at 19:15; Stop 02/28/17 at 19:16; Status DC Ondansetron HCl (Zofran Odt) 4 mg 1X ONCE PO Last administered on 02/28/17t 19 :41; Start 02/28/17 at 19:15; Stop 02/28/17 at 19:16; Status DC Ondansetron HCl (Zofran) 4 mg PRN Q8HRS PRN IV NAUSEA/VOMITING Last administered on 03/01/17 05:10; Start 02/28/17 at 20:45; Stop 03/01/17 at 20:44 Morphine Sulfate 4 mg PRN Q2HR PRN IV SEVERE PAIN Last administered on 12:31; Start 02/28/17 at 20:45; Stop 03/01/17 at 20:44 Sodium Chloride 1,000 ml @ 75 mls/hr [id number] IV Last administered on 21:40; Start 02/28/17 at 20:39; Stop 03/01/17 at 20:38 Sodium Chloride 500 ml @ 250 mls/hr 1X ONCE IV Last administered on 21:11; Start 02/28/17 at 21:00; Stop 02/28/17 at 22:59; Status DC Sodium Polystyrene Sulfonate (Kayexalate) 15 gm 1X ONCE PO Last administered on 02/28/17 23:00; Start 02/28/17 at 23:00; Stop 02/28/17 at 23:01; Status DC Methylnaltrexone [place] (Relistor) 12 mg DAILY SQ ; Start 03/01/17 at 11:00; Stop 03/01/17 at 14:28; Status DC Methylnaltrexone [place] (Relistor) 8 mg DAILY SQ ; Start 03/01/17 at 15:00 Levothyroxine Sodium 37.5 mcg/ Sodium Chloride 5 ml @ 100 mls/hr DAILY IVP ; Start 03/01/17 at 15:00 Active Scripts Active Linzess (Linaclotide) 290 Mcg Capsule 290 Mcg PO DAILY Colace (Docusate Sodium) 100 Mg Capsule 1 Cap PO BID Famotidine 20 Mg Tablet 20 Mg PO BID 14 Days Reported Tums (Calcium Carbonate) 200 Mg Tab.chew 500 Mg PO HS Bisacodyl 5 Mg Tablet.dr 5 Mg PO Q12HR PRN Abilify (Aripiprazole) 5 Mg Tablet 7.5 Mg PO DAILY Zolpidem Tartrate 10 Mg Tablet 1 Tab PO QHS Zoloft (Sertraline Hcl) 100 Mg Tablet 2 Tab PO DAILY Tylenol (Acetaminophen) 325 Mg Tablet 650 Mg PO Q6HRS Trazodone Hcl 50 Mg Tablet 1 Tab PO QHS Reglan (Metoclopramide Hcl) 10 Mg Tablet 5 Mg PO TID Calcium Acetate 667 Mg Tablet 667 Mg PO TIDWMEALS Omeprazole 20 Mg Capsule.dr 1 Cap PO DAILY Norvasc (Amlodipine Besylate) 5 Mg Tablet 1 Tab PO BID Nitrostat (Nitroglycerin) 0.4 Mg Tab.subl 0.4 Mg SL PRN Q10MIN PRN Nephro-Dangelo Tablet (Folic Acid/Vitamin B Comp W-C) 0.8 Mg Tablet 1 Tab PO DAILY Mirtazapine 15 Mg Tablet 1 Tab PO QHS Miralax (Polyethylene Glycol 3350) 17 Gm Powd.pack 1 Packet PO BID Lidocaine-Prilocaine Cream (Lidocaine/Prilocaine) 30 Gm Cream..g. 1 Adrienne TP UD Levothyroxine Sodium 75 Mcg Tablet 1 Tab PO DAILY Cymbalta (Duloxetine Hcl) 30 Mg Capsule.dr 3 Cap PO DAILY Clonidine Hcl 0.1 Mg Tablet 0.1 Mg PO DAILY Clonazepam 2 Mg Tablet 1 Tab PO QHS Calcium Carbonate 650 Mg Tablet 1,000 Mg PO QHS Allergies Allergies: Coded Allergies: Sulfa (Sulfonamide Antibiotics) (Verified Allergy, Intermediate, 03/08/16) amoxicillin (Verified Allergy, Intermediate, 03/08/16) gabapentin (Verified Allergy, Intermediate, 03/08/16) pregabalin (Verified Allergy, Intermediate, 03/08/16) ROS General: No: Chills, Other (fevers) PSYCHOLOGICAL ROS: No: Anxiety, Depression Eyes: No Blurry vision, No Double vision HEENT: No: Heacaches, Sore Throat Hematological and Lymphatic: No: Bleeding Problems, Blood Clots Respiratory: No: Cough, Shortness of breath Cardiovascular: No Chest Pain, No Palpitations Gastrointestinal: Yes Other (see hpi) Genitourinary: YES Incontinence, YES Hematuria Musculoskeletal: No Joint Pain, No Muscle Pain Neurological: No Memory Loss, No Numbness/Tingling Skin: No Pruritus, No Rash Physical Exam General: Alert, Oriented X3, Cooperative, No acute distress HEENT: PERRLA, Mucous membr. moist/pink Lungs: Clear to auscultation, Normal air movement Heart: Regular rate, Normal S1, Normal S2, No murmurs Abdomen: Soft, Other (mildly tender lower abdomen, no rebound, noted scars ) Extremities: No clubbing, No cyanosis Skin: No rashes, No breakdown Neuro: Normal speech, Sensation intact Psych/Mental Status: Mental status NL, Mood NL MUSCULOSKELETAL: No deformity, No swelling Vitals VITALS Vital Signs Date Time Temp Pulse Resp B/P (MAP) Pulse Ox O2 Delivery O2 Flow Rate FiO2 03/01/17 12:31 20 93 Room Air 03/01/17 11:00 98.2 79 145/89 (107) 98.2 Labs Labs Laboratory Tests Test 02/28/17 18:15 White Blood Count 5.4 x10^3/uL (4.0-11.0) Red Blood Count 3.14 x10^6/uL (4.30-5.70) Hemoglobin 11.1 g/dL (13.0-17.5) Hematocrit 32.8 % (39.0-53.0) Mean Corpuscular Volume 104 fL (79-100) Mean Corpuscular Hemoglobin 35 pg (25-35) Mean Corpuscular Hemoglobin Concent 34 g/dL (31-37) Red Cell Distribution Width 14.0 % (11.5-14.5) Platelet Count 139 x10^3/uL (140-400) Neutrophils (%) (Auto) 85 % (31-73) Lymphocytes (%) (Auto) 4 % (24-48) Monocytes (%) (Auto) 10 % (0-9) Eosinophils (%) (Auto) 0 % (0-3) Basophils (%) (Auto) 0 % (0-3) Neutrophils # (Auto) 4.6 x10^3uL (1.8-7.7) Lymphocytes # (Auto) 0.2 x10^3/uL (1.0-4.8) Monocytes # (Auto) 0.6 x10^3/uL (0.0-1.1) Eosinophils # (Auto) 0.0 x10^3/uL (0.0-0.7) Basophils # (Auto) 0.0 x10^3/uL (0.0-0.2) Segmented Neutrophils % 85 % (35-66) Band Neutrophils % 4 % (0-9) Lymphocytes % 8 % (24-48) Monocytes % 3 % (0-10) Platelet Estimate Adequate (ADEQUATE) Polychromasia Slight Ovalocytes Occ Sodium Level 132 mmol/L (136-145) Potassium Level 5.9 mmol/L (3.5-5.1) Chloride Level 92 mmol/L (98-107) Carbon Dioxide Level 15 mmol/L (21-32) Anion Gap 25 (6-14) Blood Urea Nitrogen 94 mg/dL (8-26) Creatinine 7.8 mg/dL (0.7-1.3) Estimated GFR (Cockcroft-Gault) 7.1 BUN/Creatinine Ratio 12 (6-20) Glucose Level 125 mg/dL (70-99) Calcium Level 9.1 mg/dL (8.5-10.1) Total Bilirubin 0.7 mg/dL (0.2-1.0) Aspartate Amino Transf (AST/SGOT) 12 U/L (15-37) Alanine Aminotransferase (ALT/SGPT) 18 U/L (16-63) Alkaline Phosphatase 97 U/L (46-116) Total Protein 7.3 g/dL (6.4-8.2) Albumin 3.8 g/dL (3.4-5.0) Albumin/Globulin Ratio 1.1 (1.0-1.7) Lipase 72 U/L (73-393) Laboratory Tests Test 02/28/17 18:15 White Blood Count 5.4 x10^3/uL (4.0-11.0) Red Blood Count 3.14 x10^6/uL (4.30-5.70) Hemoglobin 11.1 g/dL (13.0-17.5) Hematocrit 32.8 % (39.0-53.0) Mean Corpuscular Volume 104 fL (79-100) Mean Corpuscular Hemoglobin 35 pg (25-35) Mean Corpuscular Hemoglobin Concent 34 g/dL (31-37) Red Cell Distribution Width 14.0 % (11.5-14.5) Platelet Count 139 x10^3/uL (140-400) Neutrophils (%) (Auto) 85 % (31-73) Lymphocytes (%) (Auto) 4 % (24-48) Monocytes (%) (Auto) 10 % (0-9) Eosinophils (%) (Auto) 0 % (0-3) Basophils (%) (Auto) 0 % (0-3) Neutrophils # (Auto) 4.6 x10^3uL (1.8-7.7) Lymphocytes # (Auto) 0.2 x10^3/uL (1.0-4.8) Monocytes # (Auto) 0.6 x10^3/uL (0.0-1.1) Eosinophils # (Auto) 0.0 x10^3/uL (0.0-0.7) Basophils # (Auto) 0.0 x10^3/uL (0.0-0.2) Segmented Neutrophils % 85 % (35-66) Band Neutrophils % 4 % (0-9) Lymphocytes % 8 % (24-48) Monocytes % 3 % (0-10) Platelet Estimate Adequate (ADEQUATE) Polychromasia Slight Ovalocytes Occ Sodium Level 132 mmol/L (136-145) Potassium Level 5.9 mmol/L (3.5-5.1) Chloride Level 92 mmol/L (98-107) Carbon Dioxide Level 15 mmol/L (21-32) Anion Gap 25 (6-14) Blood Urea Nitrogen 94 mg/dL (8-26) Creatinine 7.8 mg/dL (0.7-1.3) Estimated GFR (Cockcroft-Gault) 7.1 BUN/Creatinine Ratio 12 (6-20) Glucose Level 125 mg/dL (70-99) Calcium Level 9.1 mg/dL (8.5-10.1) Total Bilirubin 0.7 mg/dL (0.2-1.0) Aspartate Amino Transf (AST/SGOT) 12 U/L (15-37) Alanine Aminotransferase (ALT/SGPT) 18 U/L (16-63) Alkaline Phosphatase 97 U/L (46-116) Total Protein 7.3 g/dL (6.4-8.2) Albumin 3.8 g/dL (3.4-5.0) Albumin/Globulin Ratio 1.1 (1.0-1.7) Lipase 72 U/L (73-393) Assessment/Plan Assessment/Plan ileus vs sbo chronic constipation NPO, repeat abdominal films in AM improved today poor surgical candidate due to comorbidities and multiple previous surgeries RICHARD CHOI MD 03/01/17 6888: CONSULT Allergies Allergies: Coded Allergies: Sulfa (Sulfonamide Antibiotics) (Verified Allergy, Intermediate, 03/08/16) amoxicillin (Verified Allergy, Intermediate, 03/08/16) gabapentin (Verified Allergy, Intermediate, 03/08/16) pregabalin (Verified Allergy, Intermediate, 03/08/16) Assessment/Plan Assessment/Plan pt seen, interviewed (difficult 2/2 hearing aid battery), examined agree with above no acute surgical recommendations will follow with you Thanks for consult KEILY MARTIN APRN Mar 01, 2017 15:30 RICHARD CHOI MD Mar 01, 2017 16:58
[2017-03-01] MEDS: LEVOTHYROXINE SODIUM 37.5 MCG in IV NORMAL SALINE 50ML 5 ML IVP SCH (17:11)
[2017-03-01] MEDS: METHYLNALTREXONE 12 MG/0.6 ML VIAL. SQ SCH (17:11)
[2017-03-01 19:00] VITALS: BP 134/70
[2017-03-01] MEDS ORDERED: IRON SUCROSE COMPLEX 200 MG in IV NORMAL SALINE 100ML 100 ML IV ONE (19:00)
[2017-03-01] MEDS: PARICALCITOL 5 MCG/ML VIAL. IV SCH (20:37)
[2017-03-01] MEDS ORDERED: DARBEPOETIN ALFA 25 MCG/0.42 ML DISP.SYRIN. SQ SCH (21:00)
[2017-03-01] MEDS ORDERED: ZOLPIDEM 5 MG TABLET. PO ONE (21:00)
[2017-03-01] MEDS ORDERED: ZOLPIDEM 5 MG TABLET. PO PRN (21:15)
[2017-03-01] MEDS ORDERED: IV NORMAL SALINE 1000ML BAG 1,000 ML IV PRN (22:27)
[2017-03-01] MEDS ORDERED: DIALYSIS PATIENT. MC PRN (22:30)
[2017-03-01 23:31] VITALS: BP 121/68
[2017-03-02] MEDS: ONDANSETRON PF 4 MG/2 ML VIAL. IV PRN ×2 (04:33→21:05)
[2017-03-02 07:00] VITALS: BP 167/88
[2017-03-02] MEDS ORDERED: PROCHLORPERAZINE 10 MG/2 ML VIAL. IV PRN (08:00)
[2017-03-02] MEDS: METHYLNALTREXONE 12 MG/0.6 ML VIAL. SQ SCH (08:33)
[2017-03-02] MEDS: PARICALCITOL 5 MCG/ML VIAL. IV SCH (09:00)
--- NOTE | 2017-03-02 10:16 | PDOC ---
SURGICAL PROGRESS NOTE Subjective some emesis and "dry heaves" earlier having stools Vital Signs Vital Signs Date Time Temp Pulse Resp B/P (MAP) Pulse Ox O2 Delivery O2 Flow Rate FiO2 03/02/17 07:00 98.4 94 20 167/88 (114) 92 Room Air 98.4 I&O Intake and Output 03/02/17 07:00 Intake Total 110 ml Output Total 0 ml Balance 110 ml Intake Oral 0 ml IV Total 110 ml Output Urine Total 0 ml # Bowel Movements 2 PATIENT HAS A ELLIS: No General: Alert, No acute distress Abdomen: Soft, Other (distended, minimally TTP) Labs Laboratory Tests Test 02/28/17 18:15 02/28/17 23:30 White Blood Count 5.4 x10^3/uL (4.0-11.0) Red Blood Count 3.14 x10^6/uL (4.30-5.70) Hemoglobin 11.1 g/dL (13.0-17.5) Hematocrit 32.8 % (39.0-53.0) Mean Corpuscular Volume 104 fL (79-100) Mean Corpuscular Hemoglobin 35 pg (25-35) Mean Corpuscular Hemoglobin Concent 34 g/dL (31-37) Red Cell Distribution Width 14.0 % (11.5-14.5) Platelet Count 139 x10^3/uL (140-400) Neutrophils (%) (Auto) 85 % (31-73) Lymphocytes (%) (Auto) 4 % (24-48) Monocytes (%) (Auto) 10 % (0-9) Eosinophils (%) (Auto) 0 % (0-3) Basophils (%) (Auto) 0 % (0-3) Neutrophils # (Auto) 4.6 x10^3uL (1.8-7.7) Lymphocytes # (Auto) 0.2 x10^3/uL (1.0-4.8) Monocytes # (Auto) 0.6 x10^3/uL (0.0-1.1) Eosinophils # (Auto) 0.0 x10^3/uL (0.0-0.7) Basophils # (Auto) 0.0 x10^3/uL (0.0-0.2) Segmented Neutrophils % 85 % (35-66) Band Neutrophils % 4 % (0-9) Lymphocytes % 8 % (24-48) Monocytes % 3 % (0-10) Platelet Estimate Adequate (ADEQUATE) Polychromasia Slight Ovalocytes Occ Sodium Level 132 mmol/L (136-145) Potassium Level 5.9 mmol/L (3.5-5.1) Chloride Level 92 mmol/L (98-107) Carbon Dioxide Level 15 mmol/L (21-32) Anion Gap 25 (6-14) Blood Urea Nitrogen 94 mg/dL (8-26) Creatinine 7.8 mg/dL (0.7-1.3) Estimated GFR (Cockcroft-Gault) 7.1 BUN/Creatinine Ratio 12 (6-20) Glucose Level 125 mg/dL (70-99) Calcium Level 9.1 mg/dL (8.5-10.1) Total Bilirubin 0.7 mg/dL (0.2-1.0) Aspartate Amino Transf (AST/SGOT) 12 U/L (15-37) Alanine Aminotransferase (ALT/SGPT) 18 U/L (16-63) Alkaline Phosphatase 97 U/L (46-116) Total Protein 7.3 g/dL (6.4-8.2) Albumin 3.8 g/dL (3.4-5.0) Albumin/Globulin Ratio 1.1 (1.0-1.7) Lipase 72 U/L (73-393) Nasal Screen MRSA (PCR) Negative (Negative) Clostridium difficile Toxin (PCR) Negative (Negative) I have reviewed the following abdominal films PND Problem List Problems Medical Problems: (1) Constipation Status: Acute (2) End stage renal disease on dialysis Status: Acute (3) Hyperkalemia Status: Acute (4) Small bowel obstruction Status: Acute Assessment/Plan SBO await supine/upright films could benefit from an NG tube if pattern persists Problems: RICHARD CHOI MD Mar 02, 2017 10:16
--- NOTE | 2017-03-02 10:19 | PDOC ---
Subjective: Subjective: Says 2 stools (one yesterday and one today), watery, after Relistor. Feels much better - pain improved. Feels hungry. Objective: Objective: Note order for abd x-ray. Vital Signs: Vital Signs Date Time Temp Pulse Resp B/P (MAP) Pulse Ox O2 Delivery O2 Flow Rate FiO2 03/02/17 07:00 98.4 94 20 167/88 (114) 92 Room Air 98.4 PE: GEN: NAD LUNGS: clear HEART: RRR ABD: much less tender, BS quieter today NEURO/PSYCH: A & O 3 A/P: Chronic abd pain Spinal/narcotic-induced constipation Abnormal CT w/ ileus vs SBO -- Pain improved, stooled w/ SQ Relistor. Await imaging. CLAUDIA FERRARI Mar 02, 2017 10:19
[2017-03-02] MEDS: MORPHINE SULFATE 4 MG/ML DISP.SYRIN. IV PRN ×2 (10:29→16:45)
[2017-03-02] MEDS: LEVOTHYROXINE SODIUM 37.5 MCG in IV NORMAL SALINE 50ML 5 ML IVP SCH (10:29)
[2017-03-02 11:00] VITALS: BP 153/84
--- NOTE | 2017-03-02 11:39 | PDOC ---
Renal-Progress Notes Subjective Notes Notes SOME LOOSE STOOLS History of Present Illness Hx of present illness STABLE Vitals Vitals Vital Signs Date Time Temp Pulse Resp B/P (MAP) Pulse Ox O2 Delivery O2 Flow Rate FiO2 03/02/17 07:00 98.4 94 20 167/88 (114) 92 Room Air 98.4 Weight Weight [ ] I.O. Intake and Output Intake and Output 03/02/17 07:00 Intake Total 110 ml Output Total 0 ml Balance 110 ml Intake Oral 0 ml IV Total 110 ml Output Urine Total 0 ml # Bowel Movements 2 Review of Systems Constitutional: yes: weakness, alert, oriented Ears/Nose/Throat: Yes: no symptom reported Eyes: Yes: no symptom reported Pulmonary: Yes no symptom reported Cardiovascular: Yes no symptom reported Gastrointestional: Yes: constipation, abdominal pain Musculoskeletal: Yes: muscle stiffness Skin: Yes no symptom reported Psychiatric/Neurological: Yes: no symptom reported Physical Exam General Appearance: no apparent distress Skin: warm Respiratory: bilateral CTA Heart: S1S2 Abdomen: soft, bowel sounds present Genitourinary: bladder flat Extremities: pulses present Neurology: alert, oriented Assessment Assessment IMP OBSTIPATION ESRD HTN ANEMIA SPINAL BIFIDA PLAN RELISTOR GI EVAL AND TX HD TOMORROW KELLY CALHOUN MD Mar 02, 2017 11:39
--- NOTE | 2017-03-02 12:17 | PN ---
PROGRESS NOTES Subjective Subjective The patient is c/o dry heaves and abdominal pain Objective Objective Vital Signs Date Time Temp Pulse Resp B/P (MAP) Pulse Ox O2 Delivery O2 Flow Rate FiO2 03/02/17 11:00 98.0 76 20 153/84 (107) 98 Room Air 98.0 Intake and Output 03/02/17 07:00 Intake Total 110 ml Output Total 0 ml Balance 110 ml Intake Oral 0 ml IV Total 110 ml Output Urine Total 0 ml # Bowel Movements 2 Physical Exam Physical Exam The patient is resting propped up smiling Has had subtotla colectomy and ileostomy tolerating clear liquid diet Vitals are stable COMMENT The patient is definietly doing well Diagnosis DIAGNOSIS Severe constipation due to bowel dysmotility s/p subtotal colectomy and ileostomy PROBLEM LIST Problems Medical Problems: (1) Constipation Status: Acute (2) End stage renal disease on dialysis Status: Acute (3) Hyperkalemia Status: Acute (4) Small bowel obstruction Status: Acute Assessment Assessment Problems Medical Problems: (1) Constipation Status: Acute (2) End stage renal disease on dialysis Status: Acute (3) Hyperkalemia Status: Acute (4) Small bowel obstruction Status: Acute Plan Plan of Care Parkinson disease Drug induced hepatitis dRUG INDUCED PANCREATITIS Comment Labs Laboratory Tests Test 02/28/17 18:15 02/28/17 23:30 White Blood Count 5.4 x10^3/uL (4.0-11.0) Red Blood Count 3.14 x10^6/uL (4.30-5.70) Hemoglobin 11.1 g/dL (13.0-17.5) Hematocrit 32.8 % (39.0-53.0) Mean Corpuscular Volume 104 fL (79-100) Mean Corpuscular Hemoglobin 35 pg (25-35) Mean Corpuscular Hemoglobin Concent 34 g/dL (31-37) Red Cell Distribution Width 14.0 % (11.5-14.5) Platelet Count 139 x10^3/uL (140-400) Neutrophils (%) (Auto) 85 % (31-73) Lymphocytes (%) (Auto) 4 % (24-48) Monocytes (%) (Auto) 10 % (0-9) Eosinophils (%) (Auto) 0 % (0-3) Basophils (%) (Auto) 0 % (0-3) Neutrophils # (Auto) 4.6 x10^3uL (1.8-7.7) Lymphocytes # (Auto) 0.2 x10^3/uL (1.0-4.8) Monocytes # (Auto) 0.6 x10^3/uL (0.0-1.1) Eosinophils # (Auto) 0.0 x10^3/uL (0.0-0.7) Basophils # (Auto) 0.0 x10^3/uL (0.0-0.2) Segmented Neutrophils % 85 % (35-66) Band Neutrophils % 4 % (0-9) Lymphocytes % 8 % (24-48) Monocytes % 3 % (0-10) Platelet Estimate Adequate (ADEQUATE) Polychromasia Slight Ovalocytes Occ Sodium Level 132 mmol/L (136-145) Potassium Level 5.9 mmol/L (3.5-5.1) Chloride Level 92 mmol/L (98-107) Carbon Dioxide Level 15 mmol/L (21-32) Anion Gap 25 (6-14) Blood Urea Nitrogen 94 mg/dL (8-26) Creatinine 7.8 mg/dL (0.7-1.3) Estimated GFR (Cockcroft-Gault) 7.1 BUN/Creatinine Ratio 12 (6-20) Glucose Level 125 mg/dL (70-99) Calcium Level 9.1 mg/dL (8.5-10.1) Total Bilirubin 0.7 mg/dL (0.2-1.0) Aspartate Amino Transf (AST/SGOT) 12 U/L (15-37) Alanine Aminotransferase (ALT/SGPT) 18 U/L (16-63) Alkaline Phosphatase 97 U/L (46-116) Total Protein 7.3 g/dL (6.4-8.2) Albumin 3.8 g/dL (3.4-5.0) Albumin/Globulin Ratio 1.1 (1.0-1.7) Lipase 72 U/L (73-393) Nasal Screen MRSA (PCR) Negative (Negative) Clostridium difficile Toxin (PCR) Negative (Negative) Medications Current Medications Hydromorphone HCl (Dilaudid) 0.5 mg 1X ONCE IV ; Start 02/28/17 at 18:00; Stop 02/28/17 at 19:14; Status DC Ondansetron HCl (Zofran) 4 mg 1X ONCE IV ; Start 02/28/17 at 18:00; Stop at 19:14; Status DC Iohexol (Omnipaque 300 Mg/ml) 75 ml 1X ONCE IV ; Start 02/28/17 at 18:15; Stop 02/28/17 at 18:16; Status DC Hydromorphone HCl (Dilaudid) 0.5 mg 1X ONCE IM Last administered on 02/28/17 19:40; Start 02/28/17 at 19:15; Stop 02/28/17 at 19:16; Status DC Ondansetron HCl (Zofran Odt) 4 mg 1X ONCE PO Last administered on 02/28/17 19 :41; Start 02/28/17 at 19:15; Stop 02/28/17 at 19:16; Status DC Ondansetron HCl (Zofran) 4 mg PRN Q8HRS PRN IV NAUSEA/VOMITING Last administered on 03/01/17 17:22; Start 02/28/17 at 20:45; Stop 03/01/17 at 20:44 ; Status DC Morphine Sulfate 4 mg PRN Q2HR PRN IV SEVERE PAIN Last administered on 17:11; Start 02/28/17 at 20:45; Stop 03/01/17 at 20:44; Status DC Sodium Chloride 1,000 ml @ 75 mls/hr [id number] IV Last administered on 21:40; Start 02/28/17 at 20:39; Stop 03/01/17 at 20:38; Status DC Sodium Chloride 500 ml @ 250 mls/hr 1X ONCE IV Last administered on 21:11; Start 02/28/17 at 21:00; Stop 02/28/17 at 22:59; Status DC Sodium Polystyrene Sulfonate (Kayexalate) 15 gm 1X ONCE PO Last administered on 02/28/17 23:00; Start 02/28/17 at 23:00; Stop 02/28/17 at 23:01; Status DC Methylnaltrexone [place] (Relistor) 12 mg DAILY SQ ; Start 03/01/17 at 11:00; Stop 03/01/17 at 14:28; Status DC Methylnaltrexone [place] (Relistor) 8 mg DAILY SQ Last administered on 08:33; Start 03/01/17 at 15:00 Levothyroxine Sodium 37.5 mcg/ Sodium Chloride 5 ml @ 100 mls/hr DAILY IVP Last administered on 03/02/17 10:29; Start 03/01/17 at 15:00 Darbepoetin [place] (Aranesp) 25 mcg WEEKLYHS SQ Last administered on 03/01/17 20 :38; Start 03/01/17 at 21:00 Iron Sucrose 200 mg/Sodium Chloride 110 ml @ 55 mls/hr 1X ONCE IV Last administered on 03/01/17 20:37; Start 03/01/17 at 19:00; Stop 03/01/17 at 20:59 ; Status DC Paricalcitol (Zemplar) 1.2 mcg 3X/WEEK IV Last administered on 03/01/17 20:37 ; Start 03/01/17 at 19:30 Morphine Sulfate 4 mg PRN Q2HR PRN IV SEVERE PAIN Last administered on 10:29; Start 03/01/17 at 21:00 Zolpidem Tartrate (Ambien) 5 mg 1X ONCE PO Last administered on 03/01/17 21: 34; Start 03/01/17 at 21:00; Stop 03/01/17 at 21:01; Status DC Zolpidem Tartrate (Ambien) 5 mg 1X PRN PRN PO INSOMNIA IF REPEAT NEEDED Last administered on 03/01/17 22:42; Start 03/01/17 at 21:15; Stop 03/02/17 at 04:00 ; Status DC Ondansetron HCl (Zofran) 4 mg PRN Q6HRS PRN IV NAUSEA/VOMITING Last administered on 03/02/17 04:33; Start 03/02/17 at 00:45 Sodium Chloride 1,000 ml @ 400 mls/hr Q2H30M PRN IV PATENCY; Start 03/01/17 at 22:27; Stop 03/02/17 at 10:26; Status DC Info (PHARMACY MONITORING -- do not chart) 1 each PRN DAILY PRN MC SEE COMMENTS ; Start 03/01/17 at 22:30 Prochlorperazine Edisylate (Compazine) 10 mg PRN Q6HRS PRN IV NAUSEA/VOMITING Last administered on 03/02/17t 08:33; Start 03/02/17 at 08:00 Active Scripts Active Linzess (Linaclotide) 290 Mcg Capsule 290 Mcg PO DAILY Colace (Docusate Sodium) 100 Mg Capsule 1 Cap PO BID Famotidine 20 Mg Tablet 20 Mg PO BID 14 Days Reported Tums (Calcium Carbonate) 200 Mg Tab.chew 500 Mg PO HS Bisacodyl 5 Mg Tablet.dr 5 Mg PO Q12HR PRN Abilify (Aripiprazole) 5 Mg Tablet 7.5 Mg PO DAILY Zolpidem Tartrate 10 Mg Tablet 1 Tab PO QHS Zoloft (Sertraline Hcl) 100 Mg Tablet 2 Tab PO DAILY Tylenol (Acetaminophen) 325 Mg Tablet 650 Mg PO Q6HRS Trazodone Hcl 50 Mg Tablet 1 Tab PO QHS Reglan (Metoclopramide Hcl) 10 Mg Tablet 5 Mg PO TID Calcium Acetate 667 Mg Tablet 667 Mg PO TIDWMEALS Omeprazole 20 Mg Capsule.dr 1 Cap PO DAILY Norvasc (Amlodipine Besylate) 5 Mg Tablet 1 Tab PO BID Nitrostat (Nitroglycerin) 0.4 Mg Tab.subl 0.4 Mg SL PRN Q10MIN PRN Nephro-Dangelo Tablet (Folic Acid/Vitamin B Comp W-C) 0.8 Mg Tablet 1 Tab PO DAILY Mirtazapine 15 Mg Tablet 1 Tab PO QHS Miralax (Polyethylene Glycol 3350) 17 Gm Powd.pack 1 Packet PO BID Lidocaine-Prilocaine Cream (Lidocaine/Prilocaine) 30 Gm Cream..g. 1 Adrienne TP UD Levothyroxine Sodium 75 Mcg Tablet 1 Tab PO DAILY Cymbalta (Duloxetine Hcl) 30 Mg Capsule. 3 Cap PO DAILY Clonidine Hcl 0.1 Mg Tablet 0.1 Mg PO DAILY Clonazepam 2 Mg Tablet 1 Tab PO QHS Calcium Carbonate 650 Mg Tablet 1,000 Mg PO QHS Vitals/I & O Vital Sign - Last 24 Hours 03/01/17 03/01/17 03/01/17 03/01/17 12:31 19:00 20:00 23:31 Temp 98.1 97.9 98.1 97.9 Pulse 87 83 Resp 20 18 18 B/P (MAP) 134/70 (91) 121/68 (85) Pulse Ox 93 91 91 O2 Delivery Room Air Room Air Room Air Room Air 03/02/17 03/02/17 07:00 11:00 Temp 98.4 98.0 98.4 98.0 Pulse 94 76 Resp 20 20 B/P (MAP) 167/88 (114) 153/84 (107) Pulse Ox 92 98 O2 Delivery Room Air Room Air Intake and Output 03/01/17 03/01/17 03/02/17 15:00 23:00 07:00 Intake Total 110 ml 0 ml Output Total 0 ml Balance 110 ml 0 ml WAYLON CONCEPCION MD Mar 02, 2017 12:17
--- NOTE | 2017-03-02 12:28 | PN ---
PROGRESS NOTES Subjective Subjective Setting up in bed in NAD Abdominal pain is much less Tolerating clear liquids Objective Objective Vital Signs Date Time Temp Pulse Resp B/P (MAP) Pulse Ox O2 Delivery O2 Flow Rate FiO2 03/02/17 11:00 98.0 76 20 153/84 (107) 98 Room Air 98.0 Intake and Output 03/02/17 07:00 Intake Total 110 ml Output Total 0 ml Balance 110 ml Intake Oral 0 ml IV Total 110 ml Output Urine Total 0 ml # Bowel Movements 2 Physical Exam Physical Exam Setting up in bed pale but not jaundiced Vitals are stable Abdomen distended soft nontender Bowel sounds are audible COMMENT The patient has responded to relistor and has had loose bowel movements He has required pain medication only once last night Diagnosis DIAGNOSIS OPIOID INDUCED CONSTIPATION PROBLEM LIST Problems Medical Problems: (1) Constipation Status: Acute (2) End stage renal disease on dialysis Status: Acute (3) Hyperkalemia Status: Acute (4) Small bowel obstruction Status: Acute Other Opioid induced constipation Assessment Assessment Problems Medical Problems: (1) Constipation Status: Acute (2) End stage renal disease on dialysis Status: Acute (3) Hyperkalemia Status: Acute (4) Small bowel obstruction Status: Acute Plan Plan of Care The patient was started on clear liquid diet and so far tolerating it well Comment Labs Laboratory Tests Test 02/28/17 18:15 02/28/17 23:30 White Blood Count 5.4 x10^3/uL (4.0-11.0) Red Blood Count 3.14 x10^6/uL (4.30-5.70) Hemoglobin 11.1 g/dL (13.0-17.5) Hematocrit 32.8 % (39.0-53.0) Mean Corpuscular Volume 104 fL (79-100) Mean Corpuscular Hemoglobin 35 pg (25-35) Mean Corpuscular Hemoglobin Concent 34 g/dL (31-37) Red Cell Distribution Width 14.0 % (11.5-14.5) Platelet Count 139 x10^3/uL (140-400) Neutrophils (%) (Auto) 85 % (31-73) Lymphocytes (%) (Auto) 4 % (24-48) Monocytes (%) (Auto) 10 % (0-9) Eosinophils (%) (Auto) 0 % (0-3) Basophils (%) (Auto) 0 % (0-3) Neutrophils # (Auto) 4.6 x10^3uL (1.8-7.7) Lymphocytes # (Auto) 0.2 x10^3/uL (1.0-4.8) Monocytes # (Auto) 0.6 x10^3/uL (0.0-1.1) Eosinophils # (Auto) 0.0 x10^3/uL (0.0-0.7) Basophils # (Auto) 0.0 x10^3/uL (0.0-0.2) Segmented Neutrophils % 85 % (35-66) Band Neutrophils % 4 % (0-9) Lymphocytes % 8 % (24-48) Monocytes % 3 % (0-10) Platelet Estimate Adequate (ADEQUATE) Polychromasia Slight Ovalocytes Occ Sodium Level 132 mmol/L (136-145) Potassium Level 5.9 mmol/L (3.5-5.1) Chloride Level 92 mmol/L (98-107) Carbon Dioxide Level 15 mmol/L (21-32) Anion Gap 25 (6-14) Blood Urea Nitrogen 94 mg/dL (8-26) Creatinine 7.8 mg/dL (0.7-1.3) Estimated GFR (Cockcroft-Gault) 7.1 BUN/Creatinine Ratio 12 (6-20) Glucose Level 125 mg/dL (70-99) Calcium Level 9.1 mg/dL (8.5-10.1) Total Bilirubin 0.7 mg/dL (0.2-1.0) Aspartate Amino Transf (AST/SGOT) 12 U/L (15-37) Alanine Aminotransferase (ALT/SGPT) 18 U/L (16-63) Alkaline Phosphatase 97 U/L (46-116) Total Protein 7.3 g/dL (6.4-8.2) Albumin 3.8 g/dL (3.4-5.0) Albumin/Globulin Ratio 1.1 (1.0-1.7) Lipase 72 U/L (73-393) Nasal Screen MRSA (PCR) Negative (Negative) Clostridium difficile Toxin (PCR) Negative (Negative) Medications Current Medications Hydromorphone HCl (Dilaudid) 0.5 mg 1X ONCE IV ; Start 02/28/17 at 18:00; Stop 02/28/17 at 19:14; Status DC Ondansetron HCl (Zofran) 4 mg 1X ONCE IV ; Start 02/28/17 at 18:00; Stop at 19:14; Status DC Iohexol (Omnipaque 300 Mg/ml) 75 ml 1X ONCE IV ; Start 02/28/17 at 18:15; Stop 02/28/17 at 18:16; Status DC Hydromorphone HCl (Dilaudid) 0.5 mg 1X ONCE IM Last administered on 02/28/17 19:40; Start 02/28/17 at 19:15; Stop 02/28/17 at 19:16; Status DC Ondansetron HCl (Zofran Odt) 4 mg 1X ONCE PO Last administered on 02/28/17 19 :41; Start 02/28/17 at 19:15; Stop 02/28/17 at 19:16; Status DC Ondansetron HCl (Zofran) 4 mg PRN Q8HRS PRN IV NAUSEA/VOMITING Last administered on 03/01/17 17:22; Start 02/28/17 at 20:45; Stop 03/01/17 at 20:44 ; Status DC Morphine Sulfate 4 mg PRN Q2HR PRN IV SEVERE PAIN Last administered on 17:11; Start 02/28/17 at 20:45; Stop 03/01/17 at 20:44; Status DC Sodium Chloride 1,000 ml @ 75 mls/hr [id number] IV Last administered on 21:40; Start 02/28/17 at 20:39; Stop 03/01/17 at 20:38; Status DC Sodium Chloride 500 ml @ 250 mls/hr 1X ONCE IV Last administered on 21:11; Start 02/28/17 at 21:00; Stop 02/28/17 at 22:59; Status DC Sodium Polystyrene Sulfonate (Kayexalate) 15 gm 1X ONCE PO Last administered on 02/28/17 23:00; Start 02/28/17 at 23:00; Stop 02/28/17 at 23:01; Status DC Methylnaltrexone [place] (Relistor) 12 mg DAILY SQ ; Start 03/01/17 at 11:00; Stop 03/01/17 at 14:28; Status DC Methylnaltrexone [place] (Relistor) 8 mg DAILY SQ Last administered on 08:33; Start 03/01/17 at 15:00 Levothyroxine Sodium 37.5 mcg/ Sodium Chloride 5 ml @ 100 mls/hr DAILY IVP Last administered on 03/02/17 10:29; Start 03/01/17 at 15:00 Darbepoetin [place] (Aranesp) 25 mcg WEEKLYHS SQ Last administered on 03/01/17 20 :38; Start 03/01/17 at 21:00 Iron Sucrose 200 mg/Sodium Chloride 110 ml @ 55 mls/hr 1X ONCE IV Last administered on 03/01/17 20:37; Start 03/01/17 at 19:00; Stop 03/01/17 at 20:59 ; Status DC Paricalcitol (Zemplar) 1.2 mcg 3X/WEEK IV Last administered on 03/01/17 20:37 ; Start 03/01/17 at 19:30 Morphine Sulfate 4 mg PRN Q2HR PRN IV SEVERE PAIN Last administered on 10:29; Start 03/01/17 at 21:00 Zolpidem Tartrate (Ambien) 5 mg 1X ONCE PO Last administered on 03/01/17 21: 34; Start 03/01/17 at 21:00; Stop 03/01/17 at 21:01; Status DC Zolpidem Tartrate (Ambien) 5 mg 1X PRN PRN PO INSOMNIA IF REPEAT NEEDED Last administered on 03/01/17 22:42; Start 03/01/17 at 21:15; Stop 03/02/17 at 04:00 ; Status DC Ondansetron HCl (Zofran) 4 mg PRN Q6HRS PRN IV NAUSEA/VOMITING Last administered on 03/02/17 04:33; Start 03/02/17 at 00:45 Sodium Chloride 1,000 ml @ 400 mls/hr Q2H30M PRN IV PATENCY; Start 03/01/17 at 22:27; Stop 03/02/17 at 10:26; Status DC Info (PHARMACY MONITORING -- do not chart) 1 each PRN DAILY PRN MC SEE COMMENTS ; Start 03/01/17 at 22:30 Prochlorperazine Edisylate (Compazine) 10 mg PRN Q6HRS PRN IV NAUSEA/VOMITING Last administered on 03/02/17t 08:33; Start 03/02/17 at 08:00 Active Scripts Active Linzess (Linaclotide) 290 Mcg Capsule 290 Mcg PO DAILY Colace (Docusate Sodium) 100 Mg Capsule 1 Cap PO BID Famotidine 20 Mg Tablet 20 Mg PO BID 14 Days Reported Tums (Calcium Carbonate) 200 Mg Tab.chew 500 Mg PO HS Bisacodyl 5 Mg Tablet.dr 5 Mg PO Q12HR PRN Abilify (Aripiprazole) 5 Mg Tablet 7.5 Mg PO DAILY Zolpidem Tartrate 10 Mg Tablet 1 Tab PO QHS Zoloft (Sertraline Hcl) 100 Mg Tablet 2 Tab PO DAILY Tylenol (Acetaminophen) 325 Mg Tablet 650 Mg PO Q6HRS Trazodone Hcl 50 Mg Tablet 1 Tab PO QHS Reglan (Metoclopramide Hcl) 10 Mg Tablet 5 Mg PO TID Calcium Acetate 667 Mg Tablet 667 Mg PO TIDWMEALS Omeprazole 20 Mg Capsule.dr 1 Cap PO DAILY Norvasc (Amlodipine Besylate) 5 Mg Tablet 1 Tab PO BID Nitrostat (Nitroglycerin) 0.4 Mg Tab.subl 0.4 Mg SL PRN Q10MIN PRN Nephro-Dangelo Tablet (Folic Acid/Vitamin B Comp W-C) 0.8 Mg Tablet 1 Tab PO DAILY Mirtazapine 15 Mg Tablet 1 Tab PO QHS Miralax (Polyethylene Glycol 3350) 17 Gm Powd.pack 1 Packet PO BID Lidocaine-Prilocaine Cream (Lidocaine/Prilocaine) 30 Gm Cream..g. 1 Adrienne TP UD Levothyroxine Sodium 75 Mcg Tablet 1 Tab PO DAILY Cymbalta (Duloxetine Hcl) 30 Mg Capsule.dr 3 Cap PO DAILY Clonidine Hcl 0.1 Mg Tablet 0.1 Mg PO DAILY Clonazepam 2 Mg Tablet 1 Tab PO QHS Calcium Carbonate 650 Mg Tablet 1,000 Mg PO QHS Vitals/I & O Vital Sign - Last 24 Hours 03/01/17 03/01/17 03/01/17 03/01/17 12:31 19:00 20:00 23:31 Temp 98.1 97.9 98.1 97.9 Pulse 87 83 Resp 20 18 18 B/P (MAP) 134/70 (91) 121/68 (85) Pulse Ox 93 91 91 O2 Delivery Room Air Room Air Room Air Room Air 03/02/17 03/02/17 07:00 11:00 Temp 98.4 98.0 98.4 98.0 Pulse 94 76 Resp 20 20 B/P (MAP) 167/88 (114) 153/84 (107) Pulse Ox 92 98 O2 Delivery Room Air Room Air Intake and Output 03/01/17 03/01/17 03/02/17 15:00 23:00 07:00 Intake Total 110 ml 0 ml Output Total 0 ml Balance 110 ml 0 ml WAYLON CONCEPCION MD Mar 02, 2017 12:28
--- NOTE | 2017-03-02 13:08 | RAD ---
Abdomen, 2 views, 03/02/2017: History: Small bowel obstruction There is a moderate amount of gas and stool in the left colon. Small bowel gas is present with only slight dilatation of some of those bowel loops. The overall pattern suggests an ileus. No free air is seen in the abdomen. There are multiple surgical clips in the upper abdomen. Chronic bilateral hip dislocations are again noted. IMPRESSION: Moderate amount of large and small bowel gas in a pattern suggesting a mild ileus.
[2017-03-02 15:00] VITALS: BP 145/81
[2017-03-02 19:15] VITALS: BP 162/84
[2017-03-02] MEDS: traZODone 50 MG TABLET. PO SCH (21:05)
[2017-03-02] MEDS: clonazePAM 1 MG TABLET PO PRN (21:05)
[2017-03-02] MEDS: ZOLPIDEM 5 MG TABLET. PO PRN (21:06)
[2017-03-02 23:12] VITALS: BP 116/62
[2017-03-03 03:08] VITALS: BP_SYST 100; BP_SYST 104; BP_DIAS 57; BP_DIAS 65
[2017-03-03 05:16] LABS: HEMATOCRIT 25.9 % (39.0-53.0); HEMOGLOBIN 8.7 g/dL (13.0-17.5); RED BLOOD COUNT 2.48 x10^6/uL (4.30-5.70); RED CELL DISTRIBUTION WIDTH 13.5 % (11.5-14.5); WHITE BLOOD COUNT 3.1 x10^3/uL (4.0-11.0)
[2017-03-03 05:59] LABS: ALBUMIN 3.1 g/dL (3.4-5.0); ALBUMIN/GLOBULIN RATIO 1.3 (1.0-1.7); CREATININE 7.2 mg/dL (0.7-1.3); GFR 7.8; POTASSIUM 4.1 mmol/L (3.5-5.1); TOTAL BILIRUBIN 0.6 mg/dL (0.2-1.0); TOTAL PROTEIN 5.5 g/dL (6.4-8.2)
[2017-03-03] MEDS: ONDANSETRON PF 4 MG/2 ML VIAL. IV PRN ×2 (06:10→12:39)
[2017-03-03 07:00] VITALS: BP 141/70
[2017-03-03] MEDS: MORPHINE SULFATE 4 MG/ML DISP.SYRIN. IV PRN ×2 (07:41→13:34)
[2017-03-03] MEDS ORDERED: IV NORMAL SALINE 1000ML BAG 1,000 ML IV PRN ×2 (08:32)
[2017-03-03] MEDS ORDERED: DIALYSIS PATIENT. MC PRN ×2 (08:45)
--- NOTE | 2017-03-03 10:51 | PDOC ---
KEILY MARTIN TUB CHUCKER 03/03/17 1051: SURGICAL PROGRESS NOTE Subjective still nauseated, he is hungry though and wants to eat still having some abd pain denies flatus or stool today reports does not want any NG Vital Signs Vital Signs Date Time Temp Pulse Resp B/P (MAP) Pulse Ox O2 Delivery O2 Flow Rate FiO2 03/03/17 08:00 Room Air 03/03/17 07:41 93 2.0 03/03/17 07:00 98.4 69 20 141/70 (93) 98.4 I&O Intake and Output 03/03/17 07:00 Intake Total 1600 ml Balance 1600 ml Intake Oral 1600 ml # Voids 3 General: Alert, Oriented X3, Cooperative, No acute distress Abdomen: Soft, Other (ND) Labs Laboratory Tests Test 03/03/17 04:35 White Blood Count 3.1 x10^3/uL (4.0-11.0) Red Blood Count 2.48 x10^6/uL (4.30-5.70) Hemoglobin 8.7 g/dL (13.0-17.5) Hematocrit 25.9 % (39.0-53.0) Mean Corpuscular Volume 104 fL (79-100) Mean Corpuscular Hemoglobin 35 pg (25-35) Mean Corpuscular Hemoglobin Concent 34 g/dL (31-37) Red Cell Distribution Width 13.5 % (11.5-14.5) Platelet Count 100 x10^3/uL (140-400) Sodium Level 142 mmol/L (136-145) Potassium Level 4.1 mmol/L (3.5-5.1) Chloride Level 99 mmol/L (98-107) Carbon Dioxide Level 30 mmol/L (21-32) Anion Gap 13 (6-14) Blood Urea Nitrogen 59 mg/dL (8-26) Creatinine 7.2 mg/dL (0.7-1.3) Estimated GFR (Cockcroft-Gault) 7.8 BUN/Creatinine Ratio 8 (6-20) Glucose Level 68 mg/dL (70-99) Calcium Level 8.0 mg/dL (8.5-10.1) Total Bilirubin 0.6 mg/dL (0.2-1.0) Aspartate Amino Transf (AST/SGOT) 10 U/L (15-37) Alanine Aminotransferase (ALT/SGPT) 16 U/L (16-63) Alkaline Phosphatase 70 U/L (46-116) Total Protein 5.5 g/dL (6.4-8.2) Albumin 3.1 g/dL (3.4-5.0) Albumin/Globulin Ratio 1.3 (1.0-1.7) Thyroid Stimulating Hormone (TSH) 0.572 uIU/mL (0.358-3.74) Laboratory Tests Test 03/03/17 04:35 White Blood Count 3.1 x10^3/uL (4.0-11.0) Red Blood Count 2.48 x10^6/uL (4.30-5.70) Hemoglobin 8.7 g/dL (13.0-17.5) Hematocrit 25.9 % (39.0-53.0) Mean Corpuscular Volume 104 fL (79-100) Mean Corpuscular Hemoglobin 35 pg (25-35) Mean Corpuscular Hemoglobin Concent 34 g/dL (31-37) Red Cell Distribution Width 13.5 % (11.5-14.5) Platelet Count 100 x10^3/uL (140-400) Sodium Level 142 mmol/L (136-145) Potassium Level 4.1 mmol/L (3.5-5.1) Chloride Level 99 mmol/L (98-107) Carbon Dioxide Level 30 mmol/L (21-32) Anion Gap 13 (6-14) Blood Urea Nitrogen 59 mg/dL (8-26) Creatinine 7.2 mg/dL (0.7-1.3) Estimated GFR (Cockcroft-Gault) 7.8 BUN/Creatinine Ratio 8 (6-20) Glucose Level 68 mg/dL (70-99) Calcium Level 8.0 mg/dL (8.5-10.1) Total Bilirubin 0.6 mg/dL (0.2-1.0) Aspartate Amino Transf (AST/SGOT) 10 U/L (15-37) Alanine Aminotransferase (ALT/SGPT) 16 U/L (16-63) Alkaline Phosphatase 70 U/L (46-116) Total Protein 5.5 g/dL (6.4-8.2) Albumin 3.1 g/dL (3.4-5.0) Albumin/Globulin Ratio 1.3 (1.0-1.7) Thyroid Stimulating Hormone (TSH) 0.572 uIU/mL (0.358-3.74) Problem List Problems Medical Problems: (1) Constipation Status: Acute (2) End stage renal disease on dialysis Status: Acute (3) Hyperkalemia Status: Acute (4) Small bowel obstruction Status: Acute Assessment/Plan ileus vs SBO constipation Gi following ng may help symptoms, he does not want supportive care Problems: RICHARD CHOI MD 03/03/17 1208: SURGICAL PROGRESS NOTE Assessment/Plan as above no new surgical recs Problems: KEILY MARTIN APRN Mar 03, 2017 10:51 RICHARD CHOI MD Mar 03, 2017 12:08
--- NOTE | 2017-03-03 12:14 | PDOC ---
Renal-Progress Notes Subjective Notes Notes NO NEW COMPLAINTS History of Present Illness Hx of present illness NO CHANGE Vitals Vitals Vital Signs Date Time Temp Pulse Resp B/P (MAP) Pulse Ox O2 Delivery O2 Flow Rate FiO2 03/03/17 11:11 93 Room Air 2.0 03/03/17 07:00 98.4 69 20 141/70 (93) 98.4 Weight Weight [ ] I.O. Intake and Output Intake and Output 03/03/17 07:00 Intake Total 1600 ml Balance 1600 ml Intake Oral 1600 ml # Voids 3 Labs Labs Laboratory Tests Test 03/03/17 04:35 White Blood Count 3.1 x10^3/uL (4.0-11.0) Red Blood Count 2.48 x10^6/uL (4.30-5.70) Hemoglobin 8.7 g/dL (13.0-17.5) Hematocrit 25.9 % (39.0-53.0) Mean Corpuscular Volume 104 fL (79-100) Mean Corpuscular Hemoglobin 35 pg (25-35) Mean Corpuscular Hemoglobin Concent 34 g/dL (31-37) Red Cell Distribution Width 13.5 % (11.5-14.5) Platelet Count 100 x10^3/uL (140-400) Sodium Level 142 mmol/L (136-145) Potassium Level 4.1 mmol/L (3.5-5.1) Chloride Level 99 mmol/L (98-107) Carbon Dioxide Level 30 mmol/L (21-32) Anion Gap 13 (6-14) Blood Urea Nitrogen 59 mg/dL (8-26) Creatinine 7.2 mg/dL (0.7-1.3) Estimated GFR (Cockcroft-Gault) 7.8 BUN/Creatinine Ratio 8 (6-20) Glucose Level 68 mg/dL (70-99) Calcium Level 8.0 mg/dL (8.5-10.1) Total Bilirubin 0.6 mg/dL (0.2-1.0) Aspartate Amino Transf (AST/SGOT) 10 U/L (15-37) Alanine Aminotransferase (ALT/SGPT) 16 U/L (16-63) Alkaline Phosphatase 70 U/L (46-116) Total Protein 5.5 g/dL (6.4-8.2) Albumin 3.1 g/dL (3.4-5.0) Albumin/Globulin Ratio 1.3 (1.0-1.7) Thyroid Stimulating Hormone (TSH) 0.572 uIU/mL (0.358-3.74) Review of Systems Constitutional: yes: weakness, alert, oriented Ears/Nose/Throat: Yes: no symptom reported Eyes: Yes: no symptom reported Pulmonary: Yes no symptom reported Cardiovascular: Yes no symptom reported Gastrointestional: Yes: constipation, abdominal pain Musculoskeletal: Yes: muscle stiffness Skin: Yes no symptom reported Psychiatric/Neurological: Yes: no symptom reported Physical Exam General Appearance: no apparent distress Skin: warm Respiratory: bilateral CTA Heart: S1S2 Abdomen: soft, bowel sounds present Genitourinary: bladder flat Extremities: pulses present Neurology: alert, oriented Assessment Assessment IMP OBSTIPATION ESRD HTN ANEMIA SPINAL BIFIDA PLAN RELISTOR GI EVAL AND TX HD TODAY UF TO KELLY FINNEY MD Mar 03, 2017 12:14
[2017-03-03] MEDS: METHYLNALTREXONE 12 MG/0.6 ML VIAL. SQ SCH (12:31)
--- NOTE | 2017-03-03 12:31 | PDOC ---
Subjective: Subjective: Feels the same as yesterday, really wants to eat. Chronic pain stable. No BM today. Flatus x 1. Objective: Objective: Reviewed surgery note - offered NG, he declined. Vital Signs: Vital Signs Date Time Temp Pulse Resp B/P (MAP) Pulse Ox O2 Delivery O2 Flow Rate FiO2 03/03/17 11:11 93 Room Air 2.0 03/03/17 07:00 98.4 69 20 141/70 (93) 98.4 Labs: Laboratory Tests Test 03/03/17 04:35 White Blood Count 3.1 x10^3/uL Red Blood Count 2.48 x10^6/uL Hemoglobin 8.7 g/dL Hematocrit 25.9 % Mean Corpuscular Volume 104 fL Mean Corpuscular Hemoglobin 35 pg Mean Corpuscular Hemoglobin Concent 34 g/dL Red Cell Distribution Width 13.5 % Platelet Count 100 x10^3/uL Sodium Level 142 mmol/L Potassium Level 4.1 mmol/L Chloride Level 99 mmol/L Carbon Dioxide Level 30 mmol/L Anion Gap 13 Blood Urea Nitrogen 59 mg/dL Creatinine 7.2 mg/dL Estimated GFR (Cockcroft-Gault) 7.8 BUN/Creatinine Ratio 8 Glucose Level 68 mg/dL Calcium Level 8.0 mg/dL Total Bilirubin 0.6 mg/dL Aspartate Amino Transf (AST/SGOT) 10 U/L Alanine Aminotransferase (ALT/SGPT) 16 U/L Alkaline Phosphatase 70 U/L Total Protein 5.5 g/dL Albumin 3.1 g/dL Albumin/Globulin Ratio 1.3 Thyroid Stimulating Hormone (TSH) 0.572 uIU/mL Imaging: Abd X-Ray 03/02/17 IMPRESSION: Moderate amount of large and small bowel gas in a pattern suggesting a mild ileus. PE: GEN: NAD, seen just after finished dialysis LUNGS: clear HEART: RRR ABD: soft, epigastric/periumbilical tenderness, also some suprapubic NEURO/PSYCH: A & O 3, less animated today A/P: Chronic abd pain Spinal/narcotic-induced constipation Abnormal abd imaging - SBO/ileus -- Improved overall, no stools today despite SQ Relistor QD. Will d/w Dr. Bello - ?restart Linzess/Miralax, advance diet CLAUDIA FERRARI Mar 03, 2017 12:31
[2017-03-03] MEDS: LEVOTHYROXINE SODIUM 37.5 MCG in IV NORMAL SALINE 50ML 5 ML IVP SCH (12:38)
--- NOTE | 2017-03-03 14:11 | PN ---
PROGRESS NOTES Subjective Subjective Hungry and wants to eat has had no more nausea or vomiting Has loose bowel movement after he came from dialysis Objective Objective Vital Signs Date Time Temp Pulse Resp B/P (MAP) Pulse Ox O2 Delivery O2 Flow Rate FiO2 03/03/17 13:34 93 Room Air 03/03/17 11:11 2.0 03/03/17 07:00 98.4 69 20 141/70 (93) 98.4 Intake and Output 03/03/17 06:59 Intake Total 1600 ml Balance 1600 ml Intake Oral 1600 ml # Voids 3 Physical Exam Physical Exam vitals are stable Abdomen less ditnded and soft non tender Bowel sounds are audible COMMENT The patient is responding to relistor Diagnosis DIAGNOSIS Opoiod induced constipation resolving PROBLEM LIST Problems Medical Problems: (1) Constipation Status: Acute (2) End stage renal disease on dialysis Status: Acute (3) Hyperkalemia Status: Acute (4) Small bowel obstruction Status: Acute Other ESRD on HD Spina Bifida cystica Paraplegia Assessment Assessment Problems Medical Problems: (1) Constipation Status: Acute (2) End stage renal disease on dialysis Status: Acute (3) Hyperkalemia Status: Acute (4) Small bowel obstruction Status: Acute Plan Plan of Care To continue with relistor Full liquid diet for now Comment Labs Laboratory Tests Test 03/03/17 04:35 White Blood Count 3.1 x10^3/uL (4.0-11.0) Red Blood Count 2.48 x10^6/uL (4.30-5.70) Hemoglobin 8.7 g/dL (13.0-17.5) Hematocrit 25.9 % (39.0-53.0) Mean Corpuscular Volume 104 fL (79-100) Mean Corpuscular Hemoglobin 35 pg (25-35) Mean Corpuscular Hemoglobin Concent 34 g/dL (31-37) Red Cell Distribution Width 13.5 % (11.5-14.5) Platelet Count 100 x10^3/uL (140-400) Sodium Level 142 mmol/L (136-145) Potassium Level 4.1 mmol/L (3.5-5.1) Chloride Level 99 mmol/L (98-107) Carbon Dioxide Level 30 mmol/L (21-32) Anion Gap 13 (6-14) Blood Urea Nitrogen 59 mg/dL (8-26) Creatinine 7.2 mg/dL (0.7-1.3) Estimated GFR (Cockcroft-Gault) 7.8 BUN/Creatinine Ratio 8 (6-20) Glucose Level 68 mg/dL (70-99) Calcium Level 8.0 mg/dL (8.5-10.1) Total Bilirubin 0.6 mg/dL (0.2-1.0) Aspartate Amino Transf (AST/SGOT) 10 U/L (15-37) Alanine Aminotransferase (ALT/SGPT) 16 U/L (16-63) Alkaline Phosphatase 70 U/L (46-116) Total Protein 5.5 g/dL (6.4-8.2) Albumin 3.1 g/dL (3.4-5.0) Albumin/Globulin Ratio 1.3 (1.0-1.7) Thyroid Stimulating Hormone (TSH) 0.572 uIU/mL (0.358-3.74) Laboratory Tests Test 03/03/17 04:35 White Blood Count 3.1 x10^3/uL (4.0-11.0) Red Blood Count 2.48 x10^6/uL (4.30-5.70) Hemoglobin 8.7 g/dL (13.0-17.5) Hematocrit 25.9 % (39.0-53.0) Mean Corpuscular Volume 104 fL (79-100) Mean Corpuscular Hemoglobin 35 pg (25-35) Mean Corpuscular Hemoglobin Concent 34 g/dL (31-37) Red Cell Distribution Width 13.5 % (11.5-14.5) Platelet Count 100 x10^3/uL (140-400) Sodium Level 142 mmol/L (136-145) Potassium Level 4.1 mmol/L (3.5-5.1) Chloride Level 99 mmol/L (98-107) Carbon Dioxide Level 30 mmol/L (21-32) Anion Gap 13 (6-14) Blood Urea Nitrogen 59 mg/dL (8-26) Creatinine 7.2 mg/dL (0.7-1.3) Estimated GFR (Cockcroft-Gault) 7.8 BUN/Creatinine Ratio 8 (6-20) Glucose Level 68 mg/dL (70-99) Calcium Level 8.0 mg/dL (8.5-10.1) Total Bilirubin 0.6 mg/dL (0.2-1.0) Aspartate Amino Transf (AST/SGOT) 10 U/L (15-37) Alanine Aminotransferase (ALT/SGPT) 16 U/L (16-63) Alkaline Phosphatase 70 U/L (46-116) Total Protein 5.5 g/dL (6.4-8.2) Albumin 3.1 g/dL (3.4-5.0) Albumin/Globulin Ratio 1.3 (1.0-1.7) Thyroid Stimulating Hormone (TSH) 0.572 uIU/mL (0.358-3.74) Medications Current Medications Hydromorphone HCl (Dilaudid) 0.5 mg 1X ONCE IV ; Start 02/28/17 at 18:00; Stop 02/28/17 at 19:14; Status DC Ondansetron HCl (Zofran) 4 mg 1X ONCE IV ; Start 02/28/17 at 18:00; Stop at 19:14; Status DC Iohexol (Omnipaque 300 Mg/ml) 75 ml 1X ONCE IV ; Start 02/28/17 at 18:15; Stop 02/28/17 at 18:16; Status DC Hydromorphone HCl (Dilaudid) 0.5 mg 1X ONCE IM Last administered on 02/28/17 19:40; Start 02/28/17 at 19:15; Stop 02/28/17 at 19:16; Status DC Ondansetron HCl (Zofran Odt) 4 mg 1X ONCE PO Last administered on 02/28/17 19 :41; Start 02/28/17 at 19:15; Stop 02/28/17 at 19:16; Status DC Ondansetron HCl (Zofran) 4 mg PRN Q8HRS PRN IV NAUSEA/VOMITING Last administered on 03/01/17 17:22; Start 02/28/17 at 20:45; Stop 03/01/17 at 20:44 ; Status DC Morphine Sulfate 4 mg PRN Q2HR PRN IV SEVERE PAIN Last administered on 17:11; Start 02/28/17 at 20:45; Stop 03/01/17 at 20:44; Status DC Sodium Chloride 1,000 ml @ 75 mls/hr [id number] IV Last administered on 21:40; Start 02/28/17 at 20:39; Stop 03/01/17 at 20:38; Status DC Sodium Chloride 500 ml @ 250 mls/hr 1X ONCE IV Last administered on 21:11; Start 02/28/17 at 21:00; Stop 02/28/17 at 22:59; Status DC Sodium Polystyrene Sulfonate (Kayexalate) 15 gm 1X ONCE PO Last administered on 02/28/17 23:00; Start 02/28/17 at 23:00; Stop 02/28/17 at 23:01; Status DC Methylnaltrexone [place] (Relistor) 12 mg DAILY SQ ; Start 03/01/17 at 11:00; Stop 03/01/17 at 14:28; Status DC Methylnaltrexone [place] (Relistor) 8 mg DAILY SQ Last administered on 12:31; Start 03/01/17 at 15:00; Stop 03/03/17 at 13:38; Status DC Levothyroxine Sodium 37.5 mcg/ Sodium Chloride 5 ml @ 100 mls/hr DAILY IVP Last administered on 03/03/17 12:38; Start 03/01/17 at 15:00 Darbepoetin [place] (Aranesp) 25 mcg WEEKLYHS SQ Last administered on 03/01/17 20 :38; Start 03/01/17 at 21:00 Iron Sucrose 200 mg/Sodium Chloride 110 ml @ 55 mls/hr 1X ONCE IV Last administered on 03/01/17 20:37; Start 03/01/17 at 19:00; Stop 03/01/17 at 20:59 ; Status DC Paricalcitol (Zemplar) 1.2 mcg 3X/WEEK IV Last administered on 03/01/17 20:37 ; Start 03/01/17 at 19:30 Morphine Sulfate 4 mg PRN Q2HR PRN IV SEVERE PAIN Last administered on 13:34; Start 03/01/17 at 21:00 Zolpidem Tartrate (Ambien) 5 mg 1X ONCE PO Last administered on 03/01/17 21: 34; Start 03/01/17 at 21:00; Stop 03/01/17 at 21:01; Status DC Zolpidem Tartrate (Ambien) 5 mg 1X PRN PRN PO INSOMNIA IF REPEAT NEEDED Last administered on 03/01/17 22:42; Start 03/01/17 at 21:15; Stop 03/02/17 at 04:00 ; Status DC Ondansetron HCl (Zofran) 4 mg PRN Q6HRS PRN IV NAUSEA/VOMITING Last administered on 03/03/17 12:39; Start 03/02/17 at 00:45 Sodium Chloride 1,000 ml @ 400 mls/hr Q2H30M PRN IV PATENCY; Start 03/01/17 at 22:27; Stop 03/02/17 at 10:26; Status DC Info (PHARMACY MONITORING -- do not chart) 1 each PRN DAILY PRN MC SEE COMMENTS ; Start 03/01/17 at 22:30 Prochlorperazine Edisylate (Compazine) 10 mg PRN Q6HRS PRN IV NAUSEA/VOMITING Last administered on 03/02/17 08:33; Start 03/02/17 at 08:00 Zolpidem Tartrate (Ambien) 5 mg PRN QHS PRN PO INSOMNIA Last administered on 21:06; Start 03/02/17 at 20:00 Clonazepam (KlonoPIN) 2 mg PRN QHS PRN PO ANXIETY / AGITATION Last administered on 03/02/17 21:05; Start 03/02/17 at 20:00 Trazodone HCl (Desyrel) 50 mg QHS PO Last administered on 03/02/17 21:05; Start 03/02/17 at 21:00 Sodium Chloride 1,000 ml @ 1,000 mls/hr Q1H PRN IV hypotension; Start 03/03/17 at 08:32; Stop 03/03/17 at 14:31 Sodium Chloride 1,000 ml @ 400 mls/hr Q2H30M PRN IV PATENCY; Start 03/03/17 at 08:32; Stop 03/03/17 at 20:31 Info (PHARMACY MONITORING -- do not chart) 1 each PRN DAILY PRN MC SEE COMMENTS ; Start 03/03/17 at 08:45; Status UNV Info (PHARMACY MONITORING -- do not chart) 1 each PRN DAILY PRN MC SEE COMMENTS ; Start 03/03/17 at 08:45; Status UNV Methylnaltrexone [place] (Relistor) 8 mg QODAY SQ ; Start 03/05/17 at 09:00 Linaclotide (Linzess) 290 mcg DAILY07 PO ; Start 03/03/17 at 14:30 Active Scripts Active Linzess (Linaclotide) 290 Mcg Capsule 290 Mcg PO DAILY Colace (Docusate Sodium) 100 Mg Capsule 1 Cap PO BID Famotidine 20 Mg Tablet 20 Mg PO BID 14 Days Reported Tums (Calcium Carbonate) 200 Mg Tab.chew 500 Mg PO HS Bisacodyl 5 Mg Tablet.dr 5 Mg PO Q12HR PRN Abilify (Aripiprazole) 5 Mg Tablet 7.5 Mg PO DAILY Zolpidem Tartrate 10 Mg Tablet 1 Tab PO QHS Zoloft (Sertraline Hcl) 100 Mg Tablet 2 Tab PO DAILY Tylenol (Acetaminophen) 325 Mg Tablet 650 Mg PO Q6HRS Trazodone Hcl 50 Mg Tablet 1 Tab PO QHS Reglan (Metoclopramide Hcl) 10 Mg Tablet 5 Mg PO TID Calcium Acetate 667 Mg Tablet 667 Mg PO TIDWMEALS Omeprazole 20 Mg Capsule. 1 Cap PO DAILY Norvasc (Amlodipine Besylate) 5 Mg Tablet 1 Tab PO BID Nitrostat (Nitroglycerin) 0.4 Mg Tab.subl 0.4 Mg SL PRN Q10MIN PRN Nephro-Dangelo Tablet (Folic Acid/Vitamin B Comp W-C) 0.8 Mg Tablet 1 Tab PO DAILY Mirtazapine 15 Mg Tablet 1 Tab PO QHS Miralax (Polyethylene Glycol 3350) 17 Gm Powd.pack 1 Packet PO BID Lidocaine-Prilocaine Cream (Lidocaine/Prilocaine) 30 Gm Cream..g. 1 Adrienne TP UD Levothyroxine Sodium 75 Mcg Tablet 1 Tab PO DAILY Cymbalta (Duloxetine Hcl) 30 Mg Capsule.dr 3 Cap PO DAILY Clonidine Hcl 0.1 Mg Tablet 0.1 Mg PO DAILY Clonazepam 2 Mg Tablet 1 Tab PO QHS Calcium Carbonate 650 Mg Tablet 1,000 Mg PO QHS Vitals/I & O Vital Sign - Last 24 Hours 03/02/17 03/02/17 03/02/17 03/02/17 15:00 19:15 20:10 23:12 Temp 97.7 98.1 97.7 97.7 98.1 97.7 Pulse 78 76 70 Resp 20 18 18 B/P (MAP) 145/81 (102) 162/84 (110) 116/62 (80) Pulse Ox 93 94 90 O2 Delivery Room Air Room Air Room Air Room Air 03/03/17 03/03/17 03/03/17 03/03/17 03:08 07:00 07:41 08:00 Temp 97.7 98.4 97.7 98.4 Pulse 64 69 Resp 18 20 B/P (MAP) 104/65 (78) 141/70 (93) Pulse Ox 93 92 93 O2 Delivery Nasal Cannula Room Air Room Air Room Air O2 Flow Rate 2.0 2.0 03/03/17 03/03/17 11:11 13:34 Pulse Ox 93 93 O2 Delivery Room Air Room Air O2 Flow Rate 2.0 Intake and Output 03/02/17 03/02/17 03/03/17 14:59 22:59 06:59 Intake Total 650 ml 650 ml 300 ml Balance 650 ml 650 ml 300 ml WAYLON CONCEPCION MD Mar 03, 2017 14:11
[2017-03-03] MEDS: LINACLOTIDE 145 MCG CAPSULE. PO SCH (14:30)
[2017-03-03 15:00] VITALS: BP 166/89
[2017-03-03 19:53] VITALS: BP 130/85
[2017-03-03] MEDS: traZODone 50 MG TABLET. PO SCH (21:31)
[2017-03-03] MEDS: ZOLPIDEM 5 MG TABLET. PO PRN (21:31)
[2017-03-03] MEDS: clonazePAM 1 MG TABLET PO PRN (21:31)
[2017-03-03 23:11] VITALS: BP 124/65
[2017-03-04 03:14] VITALS: BP 138/74
[2017-03-04 07:00] VITALS: BP 172/94
[2017-03-04] MEDS: METOCLOPRAMIDE 5 MG TABLET. PO SCH ×3 (08:30→16:41)
[2017-03-04] MEDS: LINACLOTIDE 145 MCG CAPSULE. PO SCH (08:30)
[2017-03-04] MEDS: PARICALCITOL 5 MCG/ML VIAL. IV SCH (09:00)
[2017-03-04] MEDS: CALCIUM ACETATE 667 MG CAPSULE PO SCH ×3 (09:37→16:41)
[2017-03-04] MEDS: DULoxetine HCL 30 MG CAPSULE.DR PO SCH (09:37)
[2017-03-04] MEDS: LEVOTHYROXINE 75 MCG TABLET PO SCH (09:37)
[2017-03-04] MEDS: SERTRALINE 50 MG TABLET. PO SCH (09:37)
[2017-03-04] MEDS: amLODIPine BESYLATE 5 MG TABLET PO SCH ×2 (09:38→21:00)
[2017-03-04] MEDS: FOLIC/VIT B COMP W-C (RENAL) TABLET. PO SCH (09:38)
[2017-03-04] MEDS: ARIPiprazole 5 MG TABLET PO SCH (09:38)
[2017-03-04] MEDS: PANTOPRAZOLE 40 MG TABLET.DR. PO SCH (09:39)
[2017-03-04] MEDS: cloNIDine HCL 0.1 MG TABLET PO SCH (09:39)
[2017-03-04] MEDS ORDERED: FAMOTIDINE 20 MG TABLET. PO SCH (10:00)
[2017-03-04] MEDS ORDERED: OXYC-323 PO (10:18)
[2017-03-04] MEDS: oxyCODONE/APAP 5/325 1 TAB TABLET PO PRN ×3 (10:44→21:00)
--- NOTE | 2017-03-04 10:53 | PDOC ---
SURGICAL PROGRESS NOTE Subjective tolerating soft diet had stools yesterday no bloating some lower abdominal pain and nausea Vital Signs Vital Signs Date Time Temp Pulse Resp B/P (MAP) Pulse Ox O2 Delivery O2 Flow Rate FiO2 03/04/17 10:44 16 Nasal Cannula 2.0 03/04/17 09:39 71 172/94 03/04/17 07:00 98.2 96 98.2 I&O Intake and Output 03/04/17 07:00 Intake Total 380 ml Balance 380 ml Intake Oral 380 ml # Voids 2 # Bowel Movements 3 General: Alert, Oriented X3, Cooperative, No acute distress Abdomen: Soft, Other (tenderness lower abdomen ) Labs Laboratory Tests Test 03/03/17 04:35 White Blood Count 3.1 x10^3/uL (4.0-11.0) Red Blood Count 2.48 x10^6/uL (4.30-5.70) Hemoglobin 8.7 g/dL (13.0-17.5) Hematocrit 25.9 % (39.0-53.0) Mean Corpuscular Volume 104 fL (79-100) Mean Corpuscular Hemoglobin 35 pg (25-35) Mean Corpuscular Hemoglobin Concent 34 g/dL (31-37) Red Cell Distribution Width 13.5 % (11.5-14.5) Platelet Count 100 x10^3/uL (140-400) Sodium Level 142 mmol/L (136-145) Potassium Level 4.1 mmol/L (3.5-5.1) Chloride Level 99 mmol/L (98-107) Carbon Dioxide Level 30 mmol/L (21-32) Anion Gap 13 (6-14) Blood Urea Nitrogen 59 mg/dL (8-26) Creatinine 7.2 mg/dL (0.7-1.3) Estimated GFR (Cockcroft-Gault) 7.8 BUN/Creatinine Ratio 8 (6-20) Glucose Level 68 mg/dL (70-99) Calcium Level 8.0 mg/dL (8.5-10.1) Total Bilirubin 0.6 mg/dL (0.2-1.0) Aspartate Amino Transf (AST/SGOT) 10 U/L (15-37) Alanine Aminotransferase (ALT/SGPT) 16 U/L (16-63) Alkaline Phosphatase 70 U/L (46-116) Total Protein 5.5 g/dL (6.4-8.2) Albumin 3.1 g/dL (3.4-5.0) Albumin/Globulin Ratio 1.3 (1.0-1.7) Thyroid Stimulating Hormone (TSH) 0.572 uIU/mL (0.358-3.74) Problem List Problems Medical Problems: (1) Constipation Status: Acute (2) End stage renal disease on dialysis Status: Acute (3) Hyperkalemia Status: Acute (4) Small bowel obstruction Status: Acute Assessment/Plan no surgical recs, tolerating diet, having stools constipation per GI will sign off, please call if questions, available as needed Problems: KEILY MARTIN APRN Mar 04, 2017 10:53
[2017-03-04 11:00] VITALS: BP 117/78
--- NOTE | 2017-03-04 11:53 | PN ---
PROGRESS NOTES Subjective Subjective Continues to c/o abdominal pain No nausea or vomiting so far he is tolearting his diet Objective Objective Vital Signs Date Time Temp Pulse Resp B/P (MAP) Pulse Ox O2 Delivery O2 Flow Rate FiO2 03/04/17 10:44 16 Nasal Cannula 2.0 03/04/17 09:39 71 172/94 03/04/17 07:00 98.2 96 98.2 Intake and Output 03/04/17 07:00 Intake Total 380 ml Balance 380 ml Intake Oral 380 ml # Voids 2 # Bowel Movements 3 Physical Exam Physical Exam Resting propped up in bed in NAD His vitals are stable Abdomen soft with mild tenderness in the LLQ No guarding or regidity Bowel sound are audible COMMENT Doing much better This a chronic problem given his opioid intake Diagnosis DIAGNOSIS Opioid induced constipation PROBLEM LIST Problems Medical Problems: (1) Constipation Status: Acute (2) End stage renal disease on dialysis Status: Acute (3) Hyperkalemia Status: Acute (4) Small bowel obstruction Status: Acute Assessment Assessment Problems Medical Problems: (1) Constipation Status: Acute (2) End stage renal disease on dialysis Status: Acute (3) Hyperkalemia Status: Acute (4) Small bowel obstruction Status: Acute Plan Plan of Care continue regular diet Will dialyze tomorrow and hopefully discharge back to [facility] tomorrow Comment Labs Laboratory Tests Test 03/03/17 04:35 White Blood Count 3.1 x10^3/uL (4.0-11.0) Red Blood Count 2.48 x10^6/uL (4.30-5.70) Hemoglobin 8.7 g/dL (13.0-17.5) Hematocrit 25.9 % (39.0-53.0) Mean Corpuscular Volume 104 fL (79-100) Mean Corpuscular Hemoglobin 35 pg (25-35) Mean Corpuscular Hemoglobin Concent 34 g/dL (31-37) Red Cell Distribution Width 13.5 % (11.5-14.5) Platelet Count 100 x10^3/uL (140-400) Sodium Level 142 mmol/L (136-145) Potassium Level 4.1 mmol/L (3.5-5.1) Chloride Level 99 mmol/L (98-107) Carbon Dioxide Level 30 mmol/L (21-32) Anion Gap 13 (6-14) Blood Urea Nitrogen 59 mg/dL (8-26) Creatinine 7.2 mg/dL (0.7-1.3) Estimated GFR (Cockcroft-Gault) 7.8 BUN/Creatinine Ratio 8 (6-20) Glucose Level 68 mg/dL (70-99) Calcium Level 8.0 mg/dL (8.5-10.1) Total Bilirubin 0.6 mg/dL (0.2-1.0) Aspartate Amino Transf (AST/SGOT) 10 U/L (15-37) Alanine Aminotransferase (ALT/SGPT) 16 U/L (16-63) Alkaline Phosphatase 70 U/L (46-116) Total Protein 5.5 g/dL (6.4-8.2) Albumin 3.1 g/dL (3.4-5.0) Albumin/Globulin Ratio 1.3 (1.0-1.7) Thyroid Stimulating Hormone (TSH) 0.572 uIU/mL (0.358-3.74) Medications Current Medications Hydromorphone HCl (Dilaudid) 0.5 mg 1X ONCE IV ; Start 02/28/17 at 18:00; Stop 02/28/17 at 19:14; Status DC Ondansetron HCl (Zofran) 4 mg 1X ONCE IV ; Start 02/28/17 at 18:00; Stop at 19:14; Status DC Iohexol (Omnipaque 300 Mg/ml) 75 ml 1X ONCE IV ; Start 02/28/17 at 18:15; Stop 02/28/17 at 18:16; Status DC Hydromorphone HCl (Dilaudid) 0.5 mg 1X ONCE IM Last administered on 02/28/17 19:40; Start 02/28/17 at 19:15; Stop 02/28/17 at 19:16; Status DC Ondansetron HCl (Zofran Odt) 4 mg 1X ONCE PO Last administered on 02/28/17 19 :41; Start 02/28/17 at 19:15; Stop 02/28/17 at 19:16; Status DC Ondansetron HCl (Zofran) 4 mg PRN Q8HRS PRN IV NAUSEA/VOMITING Last administered on 03/01/17 17:22; Start 02/28/17 at 20:45; Stop 03/01/17 at 20:44 ; Status DC Morphine Sulfate 4 mg PRN Q2HR PRN IV SEVERE PAIN Last administered on 17:11; Start 02/28/17 at 20:45; Stop 03/01/17 at 20:44; Status DC Sodium Chloride 1,000 ml @ 75 mls/hr [id number] IV Last administered on 21:40; Start 02/28/17 at 20:39; Stop 03/01/17 at 20:38; Status DC Sodium Chloride 500 ml @ 250 mls/hr 1X ONCE IV Last administered on 21:11; Start 02/28/17 at 21:00; Stop 02/28/17 at 22:59; Status DC Sodium Polystyrene Sulfonate (Kayexalate) 15 gm 1X ONCE PO Last administered on 02/28/17 23:00; Start 02/28/17 at 23:00; Stop 02/28/17 at 23:01; Status DC Methylnaltrexone [place] (Relistor) 12 mg DAILY SQ ; Start 03/01/17 at 11:00; Stop 03/01/17 at 14:28; Status DC Methylnaltrexone [place] (Relistor) 8 mg DAILY SQ Last administered on 12:31; Start 03/01/17 at 15:00; Stop 03/03/17 at 13:38; Status DC Levothyroxine Sodium 37.5 mcg/ Sodium Chloride 5 ml @ 100 mls/hr DAILY IVP Last administered on 03/03/17 12:38; Start 03/01/17 at 15:00; Stop 03/04/17 at 09:07; Status DC Darbepoetin [place] (Aranesp) 25 mcg WEEKLYHS SQ Last administered on 03/01/17 20 :38; Start 03/01/17 at 21:00 Iron Sucrose 200 mg/Sodium Chloride 110 ml @ 55 mls/hr 1X ONCE IV Last administered on 03/01/17 20:37; Start 03/01/17 at 19:00; Stop 03/01/17 at 20:59 ; Status DC Paricalcitol (Zemplar) 1.2 mcg 3X/WEEK IV Last administered on 03/01/17 20:37 ; Start 03/01/17 at 19:30 Morphine Sulfate 4 mg PRN Q2HR PRN IV SEVERE PAIN Last administered on 13:34; Start 03/01/17 at 21:00 Zolpidem Tartrate (Ambien) 5 mg 1X ONCE PO Last administered on 03/01/17 21: 34; Start 03/01/17 at 21:00; Stop 03/01/17 at 21:01; Status DC Zolpidem Tartrate (Ambien) 5 mg 1X PRN PRN PO INSOMNIA IF REPEAT NEEDED Last administered on 03/01/17 22:42; Start 03/01/17 at 21:15; Stop 03/02/17 at 04:00 ; Status DC Ondansetron HCl (Zofran) 4 mg PRN Q6HRS PRN IV NAUSEA/VOMITING Last administered on 03/03/17 12:39; Start 03/02/17 at 00:45 Sodium Chloride 1,000 ml @ 400 mls/hr Q2H30M PRN IV PATENCY; Start 03/01/17 at 22:27; Stop 03/02/17 at 10:26; Status DC Info (PHARMACY MONITORING -- do not chart) 1 each PRN DAILY PRN MC SEE COMMENTS ; Start 03/01/17 at 22:30 Prochlorperazine Edisylate (Compazine) 10 mg PRN Q6HRS PRN IV NAUSEA/VOMITING Last administered on 03/02/17 08:33; Start 03/02/17 at 08:00 Zolpidem Tartrate (Ambien) 5 mg PRN QHS PRN PO INSOMNIA Last administered on 21:31; Start 03/02/17 at 20:00; Stop 03/04/17 at 09:16; Status DC Clonazepam (KlonoPIN) 2 mg PRN QHS PRN PO ANXIETY / AGITATION Last administered on 03/03/17 21:31; Start 03/02/17 at 20:00; Stop 03/04/17 at 09:15 ; Status DC Trazodone HCl (Desyrel) 50 mg QHS PO Last administered on 03/03/17 21:31; Start 03/02/17 at 21:00 Sodium Chloride 1,000 ml @ 1,000 mls/hr Q1H PRN IV hypotension; Start 03/03/17 at 08:32; Stop 03/03/17 at 14:31; Status DC Sodium Chloride 1,000 ml @ 400 mls/hr Q2H30M PRN IV PATENCY; Start 03/03/17 at 08:32; Stop 03/03/17 at 20:31; Status DC Info (PHARMACY MONITORING -- do not chart) 1 each PRN DAILY PRN MC SEE COMMENTS ; Start 03/03/17 at 08:45; Status UNV Info (PHARMACY MONITORING -- do not chart) 1 each PRN DAILY PRN MC SEE COMMENTS ; Start 03/03/17 at 08:45; Status UNV Methylnaltrexone [place] (Relistor) 8 mg QODAY SQ ; Start 03/05/17 at 09:00 Linaclotide (Linzess) 290 mcg DAILY07 PO Last administered on 03/04/17 08:30; Start 03/03/17 at 14:30 Acetaminophen (Tylenol) 650 mg Q6HRS PO ; Start 03/04/17 at 12:00 Levothyroxine Sodium (Synthroid) 75 mcg DAILY07 PO Last administered on 09:37; Start 03/04/17 at 09:15 Metoclopramide HCl (Reglan) 5 mg TIDAC PO Last administered on 03/04/17 08:30 ; Start 03/04/17 at 08:00 Amlodipine Besylate (Norvasc) 5 mg BID PO Last administered on 03/04/17 09:38 ; Start 03/04/17 at 10:00 Aripiprazole (Abilify) 7.5 mg DAILY PO Last administered on 03/04/17 09:38; Start 03/04/17 at 10:00 Clonidine HCl (Catapres) 0.1 mg DAILY PO Last administered on 03/04/17 09:39; Start 03/04/17 at 10:00 Duloxetine HCl (Cymbalta) 90 mg DAILY PO Last administered on 03/04/17 09:37; Start 03/04/17 at 10:00 Famotidine (Pepcid) 20 mg BID PO ; Start 03/04/17 at 10:00; Status UNV Vitamin B Complex/ Vitamin C (Litzy-Dangelo) 1 tab DAILY PO Last administered on 09:38; Start 03/04/17 at 10:00 Mirtazapine (Remeron) 15 mg QHS PO ; Start 03/04/17 at 21:00 Trazodone HCl (Desyrel) 50 mg QHS PO ; Start 03/04/17 at 21:00 Calcium Acetate (Phoslo) 667 mg TIDWMEALS PO Last administered on 03/04/17 09: 37; Start 03/04/17 at 10:00 Calcium Carbonate/ Glycine (Oscal) 1,000 mg QHS PO ; Start 03/04/17 at 21:00 Clonazepam (KlonoPIN) 2 mg QHS PO ; Start 03/04/17 at 21:00 Pantoprazole Sodium (Protonix) 40 mg DAILYAC PO Last administered on 03/04/17 09:39; Start 03/04/17 at 10:00 Sertraline HCl (Zoloft) 200 mg DAILY PO Last administered on 03/04/17 09:37; Start 03/04/17 at 10:00 Zolpidem Tartrate (Ambien) 5 mg QHS PO ; Start 03/04/17 at 21:00 Oxycodone/ Acetaminophen (Percocet 5/325) 1 tab PRN Q4HRS PRN PO PAIN SEVERE Last administered on 03/04/17 10:44; Start 03/04/17 at 10:30 Active Scripts Active Linzess (Linaclotide) 290 Mcg Capsule 290 Mcg PO DAILY Colace (Docusate Sodium) 100 Mg Capsule 1 Cap PO BID Famotidine 20 Mg Tablet 20 Mg PO BID 14 Days Reported Percocet 5-325 Mg Tablet (Oxycodone/Acetaminophen) 1 Each Tablet 1 Tab PO PRN Q4 -6HRS PRN Tums (Calcium Carbonate) 200 Mg Tab.chew 500 Mg PO HS Bisacodyl 5 Mg Tablet.dr 5 Mg PO Q12HR PRN Abilify (Aripiprazole) 5 Mg Tablet 7.5 Mg PO DAILY Zolpidem Tartrate 10 Mg Tablet 1 Tab PO QHS Zoloft (Sertraline Hcl) 100 Mg Tablet 2 Tab PO DAILY Tylenol (Acetaminophen) 325 Mg Tablet 650 Mg PO Q6HRS Trazodone Hcl 50 Mg Tablet 1 Tab PO QHS Reglan (Metoclopramide Hcl) 10 Mg Tablet 5 Mg PO TID Calcium Acetate 667 Mg Tablet 667 Mg PO TIDWMEALS Omeprazole 20 Mg Capsule.dr 1 Cap PO DAILY Norvasc (Amlodipine Besylate) 5 Mg Tablet 1 Tab PO BID Nitrostat (Nitroglycerin) 0.4 Mg Tab.subl 0.4 Mg SL PRN Q10MIN PRN Nephro-Dangelo Tablet (Folic Acid/Vitamin B Comp W-C) 0.8 Mg Tablet 1 Tab PO DAILY Mirtazapine 15 Mg Tablet 1 Tab PO QHS Miralax (Polyethylene Glycol 3350) 17 Gm Powd.pack 1 Packet PO BID Lidocaine-Prilocaine Cream (Lidocaine/Prilocaine) 30 Gm Cream..g. 1 Adrienne TP UD Levothyroxine Sodium 75 Mcg Tablet 1 Tab PO DAILY Cymbalta (Duloxetine Hcl) 30 Mg Capsule.dr 3 Cap PO DAILY Clonidine Hcl 0.1 Mg Tablet 0.1 Mg PO DAILY Clonazepam 2 Mg Tablet 1 Tab PO QHS Calcium Carbonate 650 Mg Tablet 1,000 Mg PO QHS Vitals/I & O Vital Sign - Last 24 Hours 03/03/17 03/03/17 03/03/17 03/03/17 13:34 14:47 15:00 19:53 Temp 98.6 98.8 98.6 98.8 Pulse 75 75 Resp 20 18 B/P (MAP) 166/89 (114) 130/85 (100) Pulse Ox 93 93 93 94 O2 Delivery Room Air Room Air Room Air Room Air O2 Flow Rate 2.0 03/03/17 03/03/17 03/04/17 03/04/17 20:40 23:11 03:14 07:00 Temp 98.6 97.7 98.2 98.6 97.7 98.2 Pulse 72 60 71 Resp 18 18 20 B/P (MAP) 124/65 (84) 138/74 (95) 172/94 (120) Pulse Ox 92 96 96 O2 Delivery Room Air Nasal Cannula Nasal Cannula Nasal Cannula O2 Flow Rate 2.0 2.0 03/04/17 03/04/17 03/04/17 09:38 09:39 10:44 Pulse 71 71 Resp 16 B/P (MAP) 172/94 172/94 O2 Delivery Nasal Cannula O2 Flow Rate 2.0 Intake and Output 03/03/17 03/03/17 03/04/17 15:00 23:00 07:00 Intake Total 180 ml 200 ml Balance 180 ml 200 ml WAYLON CONCEPCION MD Mar 04, 2017 11:53
--- NOTE | 2017-03-04 12:07 | PDOC ---
Renal-Progress Notes Subjective Notes Notes STILL HAS SOME ABD PAIN History of Present Illness Hx of present illness STABLE Vitals Vitals Vital Signs Date Time Temp Pulse Resp B/P (MAP) Pulse Ox O2 Delivery O2 Flow Rate FiO2 03/04/17 11:00 98.3 75 20 117/78 (91) 93 Room Air 98.3 03/04/17 10:44 2.0 Weight Weight [ ] I.O. Intake and Output Intake and Output 03/04/17 07:00 Intake Total 380 ml Balance 380 ml Intake Oral 380 ml # Voids 2 # Bowel Movements 3 Review of Systems Constitutional: yes: weakness, alert, oriented Ears/Nose/Throat: Yes: no symptom reported Eyes: Yes: no symptom reported Pulmonary: Yes no symptom reported Cardiovascular: Yes no symptom reported Gastrointestional: Yes: constipation, abdominal pain Musculoskeletal: Yes: muscle stiffness Skin: Yes no symptom reported Psychiatric/Neurological: Yes: no symptom reported Physical Exam General Appearance: no apparent distress Skin: warm Respiratory: bilateral CTA Heart: S1S2 Abdomen: soft, bowel sounds present Genitourinary: bladder flat Extremities: pulses present Neurology: alert, oriented Assessment Assessment IMP ABD PAIN ESRD HTN ANEMIA SPINAL BIFIDA PLAN GI EVAL AND TX HD TOMORROW KELLY CALHOUN MD Mar 04, 2017 12:07
--- NOTE | 2017-03-04 12:50 | PDOC ---
Subjective: Subjective: No BM today but feeling better. Denies pain, tolerating diet; in fact, ordered two pot pies for lunch. Says probable DC tomorrow. Objective: Vital Signs: Vital Signs Date Time Temp Pulse Resp B/P (MAP) Pulse Ox O2 Delivery O2 Flow Rate FiO2 03/04/17 11:00 98.3 75 20 117/78 (91) 93 Room Air 98.3 03/04/17 10:44 2.0 PE: GEN: NAD, sitting up in bed eating lunch ABD: non-tender, less distended NEURO/PSYCH: A & O 3 A/P: Chronic abd pain and constipation - improved -- Improved w/ Linzess and Relistor. Continue this. CLAUDIA FERRARI Mar 04, 2017 12:50
[2017-03-04] MEDS: ACETAMINOPHEN 325 MG TABLET. PO SCH ×2 (14:41→16:27)
[2017-03-04 15:00] VITALS: BP 144/84
[2017-03-04 19:00] VITALS: BP 147/83
[2017-03-04] MEDS ORDERED: MIRTAZAPINE 15 MG TABLET PO SCH (21:00)
[2017-03-04] MEDS ORDERED: CALCIUM CARBONATE 500 MG TABLET PO SCH (21:00)
[2017-03-04] MEDS ORDERED: traZODone 50 MG TABLET. PO SCH (21:00)
[2017-03-04] MEDS ORDERED: clonazePAM 1 MG TABLET PO SCH (21:00)
[2017-03-04] MEDS ORDERED: ZOLPIDEM 5 MG TABLET. PO SCH (21:00)
[2017-03-04] MEDS: traZODone 50 MG TABLET. PO SCH (21:53)
[2017-03-04 23:04] VITALS: BP 147/56
[2017-03-05] MEDS: ACETAMINOPHEN 325 MG TABLET. PO SCH ×3 (01:11→14:45)
[2017-03-05 03:27] VITALS: BP 152/82
[2017-03-05 05:31] LABS: CALCIUM 8.5 mg/dL (8.5-10.1); CREATININE 6.5 mg/dL (0.7-1.3); GFR 8.8; POTASSIUM 4.3 mmol/L (3.5-5.1)
[2017-03-05] MEDS: LEVOTHYROXINE 75 MCG TABLET PO SCH (06:22)
[2017-03-05] MEDS: PANTOPRAZOLE 40 MG TABLET.DR. PO SCH (06:22)
[2017-03-05] MEDS: LINACLOTIDE 145 MCG CAPSULE. PO SCH ×2 (06:22→06:25)
[2017-03-05] MEDS: METOCLOPRAMIDE 5 MG TABLET. PO SCH ×2 (06:22→11:30)
[2017-03-05] MEDS: oxyCODONE/APAP 5/325 1 TAB TABLET PO PRN ×2 (06:23→14:47)
[2017-03-05 07:00] VITALS: BP 141/79
[2017-03-05 08:29] VITALS: BP 141/79
[2017-03-05] MEDS: amLODIPine BESYLATE 5 MG TABLET PO SCH (08:29)
[2017-03-05] MEDS: cloNIDine HCL 0.1 MG TABLET PO SCH (08:29)
[2017-03-05] MEDS: CALCIUM ACETATE 667 MG CAPSULE PO SCH ×2 (08:30→12:00)
[2017-03-05] MEDS: SERTRALINE 50 MG TABLET. PO SCH (09:00)
[2017-03-05] MEDS: DULoxetine HCL 30 MG CAPSULE.DR PO SCH (09:00)
[2017-03-05] MEDS ORDERED: METHYLNALTREXONE 12 MG/0.6 ML VIAL. SQ SCH (09:00)
[2017-03-05] MEDS: FOLIC/VIT B COMP W-C (RENAL) TABLET. PO SCH (09:00)
[2017-03-05] MEDS: ARIPiprazole 5 MG TABLET PO SCH (09:00)
--- NOTE | 2017-03-05 11:38 | PDOC ---
Renal-Progress Notes Subjective Notes Notes FEELING BETTER History of Present Illness Hx of present illness STABLE Vitals Vitals Vital Signs Date Time Temp Pulse Resp B/P (MAP) Pulse Ox O2 Delivery O2 Flow Rate FiO2 03/05/17 08:30 Room Air 03/05/17 08:29 69 141/79 03/05/17 07:00 97.9 20 94 97.9 03/04/17 11:44 2.0 Weight Weight [ ] I.O. Intake and Output Intake and Output 03/05/17 07:00 Intake Total 620 ml Balance 620 ml Intake Oral 620 ml # Bowel Movements 2 Labs Labs Laboratory Tests Test 03/05/17 04:50 Sodium Level 139 mmol/L (136-145) Potassium Level 4.3 mmol/L (3.5-5.1) Chloride Level 99 mmol/L (98-107) Carbon Dioxide Level 30 mmol/L (21-32) Anion Gap 10 (6-14) Blood Urea Nitrogen 42 mg/dL (8-26) Creatinine 6.5 mg/dL (0.7-1.3) Estimated GFR (Cockcroft-Gault) 8.8 Glucose Level 102 mg/dL (70-99) Calcium Level 8.5 mg/dL (8.5-10.1) Review of Systems Constitutional: yes: weakness, alert, oriented Ears/Nose/Throat: Yes: no symptom reported Eyes: Yes: no symptom reported Pulmonary: Yes no symptom reported Cardiovascular: Yes no symptom reported Gastrointestional: Yes: constipation, abdominal pain Musculoskeletal: Yes: muscle stiffness Skin: Yes no symptom reported Psychiatric/Neurological: Yes: no symptom reported Physical Exam General Appearance: no apparent distress Skin: warm Respiratory: bilateral CTA Heart: S1S2 Abdomen: soft, bowel sounds present Genitourinary: bladder flat Extremities: pulses present Neurology: alert, oriented Assessment Assessment IMP ABD PAIN ESRD HTN ANEMIA SPINAL BIFIDA PLAN GI EVAL AND TX HD TODAY UF TO KELLY FINNEY MD Mar 05, 2017 11:38
--- NOTE | 2017-03-05 11:53 | PDOC3 ---
Discharge Summary Date of Admission: Feb 28, 2017 Date of Discharge: Mar 05, 2017 Admitting Diagnosis comment: opioid induced constipation Problems: FINAL DIAGNOSIS Problems Medical Problems: (1) Constipation Status: Acute (2) End stage renal disease on dialysis Status: Acute (3) Hyperkalemia Status: Acute (4) Small bowel obstruction Status: Acute Brief Hospital Course Mr. Del Cid is a 62 old [sex] who presented with yet again an other episode of N/ V and abdominal pain He was found to be constipayed and was seen by G I team and the surgical team He was kept NPO intially and was traeted with Relistor and linzess and has had multiple loose bowel movements His diet diet was advanced as tolerated Has had no nausea or vomiting and abdominal pain has largely resolved Discharge Medications Current Medications Hydromorphone HCl (Dilaudid) 0.5 mg 1X ONCE IV ; Start 02/28/17 at 18:00; Stop 02/28/17 at 19:14; Status DC Ondansetron HCl (Zofran) 4 mg 1X ONCE IV ; Start 02/28/17 at 18:00; Stop at 19:14; Status DC Iohexol (Omnipaque 300 Mg/ml) 75 ml 1X ONCE IV ; Start 02/28/17 at 18:15; Stop 02/28/17 at 18:16; Status DC Hydromorphone HCl (Dilaudid) 0.5 mg 1X ONCE IM Last administered on 02/28/17 19:40; Start 02/28/17 at 19:15; Stop 02/28/17 at 19:16; Status DC Ondansetron HCl (Zofran Odt) 4 mg 1X ONCE PO Last administered on 02/28/17 19 :41; Start 02/28/17 at 19:15; Stop 02/28/17 at 19:16; Status DC Ondansetron HCl (Zofran) 4 mg PRN Q8HRS PRN IV NAUSEA/VOMITING Last administered on 03/01/17 17:22; Start 02/28/17 at 20:45; Stop 03/01/17 at 20:44 ; Status DC Morphine Sulfate 4 mg PRN Q2HR PRN IV SEVERE PAIN Last administered on 17:11; Start 02/28/17 at 20:45; Stop 03/01/17 at 20:44; Status DC Sodium Chloride 1,000 ml @ 75 mls/hr [id number] IV Last administered on 21:40; Start 02/28/17 at 20:39; Stop 03/01/17 at 20:38; Status DC Sodium Chloride 500 ml @ 250 mls/hr 1X ONCE IV Last administered on 21:11; Start 02/28/17 at 21:00; Stop 02/28/17 at 22:59; Status DC Sodium Polystyrene Sulfonate (Kayexalate) 15 gm 1X ONCE PO Last administered on 02/28/17 23:00; Start 02/28/17 at 23:00; Stop 02/28/17 at 23:01; Status DC Methylnaltrexone [place] (Relistor) 12 mg DAILY SQ ; Start 03/01/17 at 11:00; Stop 03/01/17 at 14:28; Status DC Methylnaltrexone [place] (Relistor) 8 mg DAILY SQ Last administered on 12:31; Start 03/01/17 at 15:00; Stop 03/03/17 at 13:38; Status DC Levothyroxine Sodium 37.5 mcg/ Sodium Chloride 5 ml @ 100 mls/hr DAILY IVP Last administered on 03/03/17 12:38; Start 03/01/17 at 15:00; Stop 03/04/17 at 09:07; Status DC Darbepoetin Trevor (Aranesp) 25 mcg WEEKLYHS SQ Last administered on 03/01/17 20 :38; Start 03/01/17 at 21:00 Iron Sucrose 200 mg/Sodium Chloride 110 ml @ 55 mls/hr 1X ONCE IV Last administered on 03/01/17 20:37; Start 03/01/17 at 19:00; Stop 03/01/17 at 20:59 ; Status DC Paricalcitol (Zemplar) 1.2 mcg 3X/WEEK IV Last administered on 03/01/17 20:37 ; Start 03/01/17 at 19:30 Morphine Sulfate 4 mg PRN Q2HR PRN IV SEVERE PAIN Last administered on 13:34; Start 03/01/17 at 21:00 Zolpidem Tartrate (Ambien) 5 mg 1X ONCE PO Last administered on 03/01/17 21: 34; Start 03/01/17 at 21:00; Stop 03/01/17 at 21:01; Status DC Zolpidem Tartrate (Ambien) 5 mg 1X PRN PRN PO INSOMNIA IF REPEAT NEEDED Last administered on 03/01/17 22:42; Start 03/01/17 at 21:15; Stop 03/02/17 at 04:00 ; Status DC Ondansetron HCl (Zofran) 4 mg PRN Q6HRS PRN IV NAUSEA/VOMITING Last administered on 03/03/17 12:39; Start 03/02/17 at 00:45 Sodium Chloride 1,000 ml @ 400 mls/hr Q2H30M PRN IV PATENCY; Start 03/01/17 at 22:27; Stop 03/02/17 at 10:26; Status DC Info (PHARMACY MONITORING -- do not chart) 1 each PRN DAILY PRN MC SEE COMMENTS ; Start 03/01/17 at 22:30 Prochlorperazine Edisylate (Compazine) 10 mg PRN Q6HRS PRN IV NAUSEA/VOMITING Last administered on 03/02/17 08:33; Start 03/02/17 at 08:00 Zolpidem Tartrate (Ambien) 5 mg PRN QHS PRN PO INSOMNIA Last administered on 21:31; Start 03/02/17 at 20:00; Stop 03/04/17 at 09:16; Status DC Clonazepam (KlonoPIN) 2 mg PRN QHS PRN PO ANXIETY / AGITATION Last administered on 03/03/17 21:31; Start 03/02/17 at 20:00; Stop 03/04/17 at 09:15 ; Status DC Trazodone HCl (Desyrel) 50 mg QHS PO Last administered on 03/04/17 21:53; Start 03/02/17 at 21:00 Sodium Chloride 1,000 ml @ 1,000 mls/hr Q1H PRN IV hypotension; Start 03/03/17 at 08:32; Stop 03/03/17 at 14:31; Status DC Sodium Chloride 1,000 ml @ 400 mls/hr Q2H30M PRN IV PATENCY; Start 03/03/17 at 08:32; Stop 03/03/17 at 20:31; Status DC Info (PHARMACY MONITORING -- do not chart) 1 each PRN DAILY PRN MC SEE COMMENTS ; Start 03/03/17 at 08:45; Status UNV Info (PHARMACY MONITORING -- do not chart) 1 each PRN DAILY PRN MC SEE COMMENTS ; Start 03/03/17 at 08:45; Status UNV Methylnaltrexone [place] (Relistor) 8 mg QODAY SQ ; Start 03/05/17 at 09:00 Linaclotide (Linzess) 290 mcg DAILY07 PO Last administered on 03/04/17 08:30; Start 03/03/17 at 14:30 Acetaminophen (Tylenol) 650 mg Q6HRS PO Last administered on 03/05/17 06:22; Start 03/04/17 at 12:00 Levothyroxine Sodium (Synthroid) 75 mcg DAILY07 PO Last administered on 06:22; Start 03/04/17 at 09:15 Metoclopramide HCl (Reglan) 5 mg TIDAC PO Last administered on 03/05/17 06:22 ; Start 03/04/17 at 08:00 Amlodipine Besylate (Norvasc) 5 mg BID PO Last administered on 03/05/17 08:29 ; Start 03/04/17 at 10:00 Aripiprazole (Abilify) 7.5 mg DAILY PO Last administered on 03/04/17 09:38; Start 03/04/17 at 10:00 Clonidine HCl (Catapres) 0.1 mg DAILY PO Last administered on 03/05/17 08:29; Start 03/04/17 at 10:00 Duloxetine HCl (Cymbalta) 90 mg DAILY PO Last administered on 03/04/17 09:37; Start 03/04/17 at 10:00 Famotidine (Pepcid) 20 mg BID PO ; Start 03/04/17 at 10:00; Status UNV Vitamin B Complex/ Vitamin C (Litzy-Dangelo) 1 tab DAILY PO Last administered on 09:38; Start 03/04/17 at 10:00 Mirtazapine (Remeron) 15 mg QHS PO Last administered on 03/04/17 21:00; Start 03/04/17 at 21:00 Trazodone HCl (Desyrel) 50 mg QHS PO ; Start 03/04/17 at 21:00 Calcium Acetate (Phoslo) 667 mg TIDWMEALS PO Last administered on 03/05/17 08: 30; Start 03/04/17 at 10:00 Calcium Carbonate/ Glycine (Oscal) 1,000 mg QHS PO Last administered on 21:00; Start 03/04/17 at 21:00 Clonazepam (KlonoPIN) 2 mg QHS PO Last administered on 03/04/17 21:53; Start 03/04/17 at 21:00 Pantoprazole Sodium (Protonix) 40 mg DAILYAC PO Last administered on 03/05/17 06:22; Start 03/04/17 at 10:00 Sertraline HCl (Zoloft) 200 mg DAILY PO Last administered on 03/04/17 09:37; Start 03/04/17 at 10:00 Zolpidem Tartrate (Ambien) 5 mg QHS PO Last administered on 03/04/17 21:52; Start 03/04/17 at 21:00 Oxycodone/ Acetaminophen (Percocet 5/325) 1 tab PRN Q4HRS PRN PO PAIN SEVERE Last administered on 03/05/17 06:23; Start 03/04/17 at 10:30 Active Scripts Active Linzess (Linaclotide) 290 Mcg Capsule 290 Mcg PO DAILY Colace (Docusate Sodium) 100 Mg Capsule 1 Cap PO BID Famotidine 20 Mg Tablet 20 Mg PO BID 14 Days Reported Percocet 5-325 Mg Tablet (Oxycodone/Acetaminophen) 1 Each Tablet 1 Tab PO PRN Q4 -6HRS PRN Tums (Calcium Carbonate) 200 Mg Tab.chew 500 Mg PO HS Bisacodyl 5 Mg Tablet.dr 5 Mg PO Q12HR PRN Abilify (Aripiprazole) 5 Mg Tablet 7.5 Mg PO DAILY Zolpidem Tartrate 10 Mg Tablet 1 Tab PO QHS Zoloft (Sertraline Hcl) 100 Mg Tablet 2 Tab PO DAILY Tylenol (Acetaminophen) 325 Mg Tablet 650 Mg PO Q6HRS Trazodone Hcl 50 Mg Tablet 1 Tab PO QHS Reglan (Metoclopramide Hcl) 10 Mg Tablet 5 Mg PO TID Calcium Acetate 667 Mg Tablet 667 Mg PO TIDWMEALS Omeprazole 20 Mg Capsule.dr 1 Cap PO DAILY Norvasc (Amlodipine Besylate) 5 Mg Tablet 1 Tab PO BID Nitrostat (Nitroglycerin) 0.4 Mg Tab.subl 0.4 Mg SL PRN Q10MIN PRN Nephro-Dangelo Tablet (Folic Acid/Vitamin B Comp W-C) 0.8 Mg Tablet 1 Tab PO DAILY Mirtazapine 15 Mg Tablet 1 Tab PO QHS Miralax (Polyethylene Glycol 3350) 17 Gm Powd.pack 1 Packet PO BID Lidocaine-Prilocaine Cream (Lidocaine/Prilocaine) 30 Gm Cream..g. 1 Adrienne TP UD Levothyroxine Sodium 75 Mcg Tablet 1 Tab PO DAILY Cymbalta (Duloxetine Hcl) 30 Mg Capsule.dr 3 Cap PO DAILY Clonidine Hcl 0.1 Mg Tablet 0.1 Mg PO DAILY Clonazepam 2 Mg Tablet 1 Tab PO QHS Calcium Carbonate 650 Mg Tablet 1,000 Mg PO QHS Vital Signs Vital Signs Date Time Temp Pulse Resp B/P (MAP) Pulse Ox O2 Delivery O2 Flow Rate FiO2 03/05/17 08:30 Room Air 03/05/17 08:29 69 141/79 03/05/17 07:00 97.9 20 94 97.9 03/04/17 11:44 2.0 Labs Laboratory Tests Test 03/05/17 04:50 Sodium Level 139 mmol/L (136-145) Potassium Level 4.3 mmol/L (3.5-5.1) Chloride Level 99 mmol/L (98-107) Carbon Dioxide Level 30 mmol/L (21-32) Anion Gap 10 (6-14) Blood Urea Nitrogen 42 mg/dL (8-26) Creatinine 6.5 mg/dL (0.7-1.3) Estimated GFR (Cockcroft-Gault) 8.8 Glucose Level 102 mg/dL (70-99) Calcium Level 8.5 mg/dL (8.5-10.1) Laboratory Tests Test 03/05/17 04:50 Sodium Level 139 mmol/L (136-145) Potassium Level 4.3 mmol/L (3.5-5.1) Chloride Level 99 mmol/L (98-107) Carbon Dioxide Level 30 mmol/L (21-32) Anion Gap 10 (6-14) Blood Urea Nitrogen 42 mg/dL (8-26) Creatinine 6.5 mg/dL (0.7-1.3) Estimated GFR (Cockcroft-Gault) 8.8 Glucose Level 102 mg/dL (70-99) Calcium Level 8.5 mg/dL (8.5-10.1) Allergies Allergies Coded Allergies Type Severity Reaction Last Updated Verified Sulfa (Sulfonamide Antibiotics) Allergy Intermediate 03/08/16 Yes amoxicillin Allergy Intermediate 03/08/16 Yes gabapentin Allergy Intermediate 03/08/16 Yes pregabalin Allergy Intermediate 03/08/16 Yes Disposition/Orders: Other WAYLON CONCEPCION MD Mar 05, 2017 11:53
[2017-03-05] MEDS ORDERED: DIALYSIS PATIENT. MC PRN (19:15)
== END 2017-03-05 15:00 | DRG 388 ==
LOC: ER 17:18 → 4 NORTH 20:59
PROVIDERS: ADMIT Internal Medicine; ATTEND Internal Medicine
PROC: 5A1D60Z (ICD-10-PCS; principal; 2017-03-01)
DX: K56.60 Unspecified intestinal obstruction (principal); N18.6 End stage renal disease; I12.0 Hypertensive chronic kidney disease with stage 5 chronic kidney disease or end stage renal disease; G82.20 Paraplegia, unspecified; K59.03 Drug induced constipation; K56.7 Ileus, unspecified; F32.9 Major depressive disorder, single episode, unspecified; F41.9 Anxiety disorder, unspecified; E87.5 Hyperkalemia; E78.5 Hyperlipidemia, unspecified; E78.00 Pure hypercholesterolemia, unspecified; E03.9 Hypothyroidism, unspecified; D64.9 Anemia, unspecified; G40.909 Epilepsy, unspecified, not intractable, without status epilepticus; K21.9 Gastro-esophageal reflux disease without esophagitis; G89.4 Chronic pain syndrome; T40.2X5A Adverse effect of other opioids, initial encounter; E21.3 Hyperparathyroidism, unspecified; G47.00 Insomnia, unspecified; Z79.899 Other long term (current) drug therapy; Z82.49 Family history of ischemic heart disease and other diseases of the circulatory system; Z90.49 Acquired absence of other specified parts of digestive tract; Z82.3 Family history of stroke; Q05.9 Spina bifida, unspecified; Z99.2 Dependence on renal dialysis; Z90.5 Acquired absence of kidney; Z79.1 Long term (current) use of non-steroidal anti-inflammatories (NSAID); Z88.1 Allergy status to other antibiotic agents; Z88.2 Allergy status to sulfonamides; Z88.8 Allergy status to other drugs, medicaments and biological substances
CPT/HCPCS: 36415; 74020; 74176; 80048; 80053; 83690; 84443; 85007; 85027; 87324; 87641; 93005; 96360; 96372; J0780; J0881; J1170; J1756; J2212; J2270; J2405; J2501; J7030; J7040; J8597; Q0162; 99285-25

== ENCOUNTER → 2018-01-18 | Outpatient (CLI) | payer MEDICARE, OTHER | END | disposition home or self-care (01) | LOC: EKG 11:52 | DX: I12.0 Hypertensive chronic kidney disease with stage 5 chronic kidney disease or end stage renal disease (principal); N18.6 End stage renal disease; E78.00 Pure hypercholesterolemia, unspecified; E03.9 Hypothyroidism, unspecified | CPT/HCPCS: 93005 ==

== ENCOUNTER 2018-02-23 07:34 | Emergency (ER) | payer MEDICARE, OTHER ==
[2018-02-23] MEDS: fentaNYL PF VIAL 100 MCG/2 ML VIAL IV ×2 (08:53→10:03)
[2018-02-23] MEDS: ONDANSETRON PF 4 MG/2 ML VIAL. IV (08:53)
[2018-02-23 08:54] LABS: ADD MAN DIFF? NO
[2018-02-23 08:57] LABS: BASO % 1 % (0-3); EOS # 0.1 x10^3/uL (0.0-0.7); EOS % 2 % (0-3); HEMOGLOBIN 10.3 g/dL (13.0-17.5); LYMPH # 0.6 x10^3/uL (1.0-4.8); LYMPH % 14 % (24-48); MEAN CORPUSCULAR HEMOGLOBIN 34 pg (25-35); MEAN CORPUSCULAR HGB CONC 33 g/dL (31-37); MEAN CORPUSCULAR VOLUME 104 fL (79-100); MONO # 0.3 x10^3/uL (0.0-1.1); MONO % 8 % (0-9); NEUT # 3.2 x10^3uL (1.8-7.7); NEUT % 76 % (31-73); PLATELET COUNT 126 x10^3/uL (140-400); RED BLOOD COUNT 2.99 x10^6/uL (4.30-5.70); RED CELL DISTRIBUTION WIDTH 13.2 % (11.5-14.5); WHITE BLOOD COUNT 4.3 x10^3/uL (4.0-11.0)
[2018-02-23 09:06] LABS: ANION GAP 10 (6-14); BLOOD UREA NITROGEN 54 mg/dL (8-26); BUN/CREATININE RATIO 8 (6-20); CALCIUM 8.4 mg/dL (8.5-10.1); CARBON DIOXIDE 26 mmol/L (21-32); CHLORIDE 97 mmol/L (98-107); CREATININE 7.2 mg/dL (0.7-1.3); GFR 7.8; GLUCOSE 92 mg/dL (70-99); SODIUM 133 mmol/L (136-145)
[2018-02-23 09:12] LABS: ALBUMIN 3.8 g/dL (3.4-5.0); ALBUMIN/GLOBULIN RATIO 1.5 (1.0-1.7); ALK PHOS 127 U/L (46-116); ALT (SGPT) 14 U/L (16-63); AST (SGOT) 10 U/L (15-37); TOTAL BILIRUBIN 0.6 mg/dL (0.2-1.0); TOTAL PROTEIN 6.4 g/dL (6.4-8.2)
[2018-02-23 09:14] LABS: TROPONINI < 0.017 ng/mL (0.000-0.055)
[2018-02-23 09:19] LABS: CKMB MASS 1.4 ng/mL (0.0-3.6); CREATINE KINASE 58 U/L (39-308)
[2018-02-23] MEDS: FAMOTIDINE 20 MG/2 ML VIAL IVP (10:04)
[2018-02-23 14:09] LABS: TROPONINI < 0.017 ng/mL (0.000-0.055)
[2018-02-23] MEDS: oxyCODONE/APAP 5/325 1 TAB TABLET PO (14:47)
== END 2018-02-23 18:02 | disposition home or self-care (01) ==
LOC: ER 07:34
DX: R10.10 Upper abdominal pain, unspecified (principal); R07.89 Other chest pain; I12.0 Hypertensive chronic kidney disease with stage 5 chronic kidney disease or end stage renal disease; N18.6 End stage renal disease; Z99.2 Dependence on renal dialysis; F31.9 Bipolar disorder, unspecified; E78.00 Pure hypercholesterolemia, unspecified; Z90.49 Acquired absence of other specified parts of digestive tract; Z88.1 Allergy status to other antibiotic agents; Z88.2 Allergy status to sulfonamides; Z88.8 Allergy status to other drugs, medicaments and biological substances
CPT/HCPCS: 36415; 74176; 80053; 82553; 84484; 85025; 93005; 96374; 96375; 96376; 99285-25; J2405; J3010; S0028

== ENCOUNTER 2018-05-29 03:39 | Emergency (ER) | payer MEDICARE, OTHER ==
[~2018-05-29] VITALS: Ht 154.9 cm; Wt 77.6 kg
[~2018-05-29 03:39] MED LIST changes: -CLON2TAB2 PO; +CLON2TAB9 PO; +ONDA4TAB7 PO; +OXYC-323 PO; +TRAZ-85 PO; -TRAZ50TA15 PO
[2018-05-29 03:52] VITALS: BP 154/74
--- NOTE | 2018-05-29 05:35 | RAD ---
Chest AP portable at 0422: Reason for examination: Dizziness and fall. The heart size is normal. Mediastinum is unremarkable. Lung feng are clear. No acute bony abnormalities are seen. Postop changes are seen at the left shoulder. IMPRESSION: No acute cardiopulmonary disease. CT head without contrast: Axial images were obtained through the brain. No contrast was administered. Reconstruction was performed in sagittal and coronal planes. Ventricular systems are dilated but symmetric. No midline shift is seen. There is no evidence of intracranial hemorrhage, infarct, mass or edema. No abnormalities are seen at the orbits. The paranasal sinuses and mastoid air cells are clear. No acute abnormality seen in the skull. IMPRESSION: Prominent lateral ventricles for the patient's age suggesting central atrophy. No acute intracranial abnormality seen. CT cervical spine without contrast: Helical images were obtained through the cervical spine from skull base through the thoracic apices. No contrast was administered. Reconstruction was performed in sagittal and coronal planes. 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 The odontoid process is intact and normally centered between the lateral masses of C1. The cervical vertebral bodies are normally aligned anteriorly and posteriorly. No acute fracture or subluxation is seen. The intervertebral discs are maintained. Prevertebral soft tissues are normal. No spinal stenosis is evident. IMPRESSION: No acute abnormality seen in the cervical spine. Exposure: One or more of the following individualized dose reduction techniques were utilized for this examination: 1. Automated exposure control 2. Adjustment of the mA and/or kV according to patient size 3. Use of iterative reconstruction technique. Electronically signed by: Willow Anderson MD (05/29/2018 5:33 AM) [id number]
[2018-05-29] MEDS ORDERED: ERYT1OIN6 OP (05:43)
--- NOTE | 2018-05-29 05:44 | PHYS DOC ---
Past Medical History Past Medical History: Anemia, Anxiety, Depression, GERD, High Cholesterol, Hypertension, Renal Disease, Renal Failure Additional Past Medical Histor: spina bifida- paraplegia, thyroid disease, insomnia, Dialysis Past Surgical History: Appendectomy, Cholecystectomy Additional Past Surgical Histo: stoma to abdomen, L kidney removed, ? bladder removed, hiatal hernia Alcohol Use: None Drug Use: Marijuana Adult General Chief Complaint Chief Complaint: MECHANICAL FALL HPI HPI 63-year-old male presents via EMS from [facility] with report of accidental slip and fall hitting his forehead and nose on the ground. Reports some previous dizziness. Patient reports has had dizziness in the past. Denies any nausea or vomiting. Patient reports unclear if he lost consciousness. No history of blood thinner use. Denies neck pain. Patient is nonambulatory at baseline with history of paraplegia. Patient also with history of ESRD on HD T/ /Tue. Reports compliance with HD. Denies chest pain. Denies SOA. Review of Systems Review of Systems Constitutional: Denies fever or chills [] Eyes: Denies change in visual acuity, redness, or eye pain; eye discharge noted HENT: Denies nasal congestion or epistaxis Respiratory: Denies cough or shortness of breath [] Cardiovascular: Denies chest pain or palpitations GI: Denies abdominal pain, nausea, vomiting, or diarrhea [] : Denies dysuria or hematuria [] Musculoskeletal: Denies back pain or neck pain Integument: Denies laceration; reports forehead abrasion/ecchymosis/swelling Neurologic: Reports headache and dizziness Complete systems were reviewed and found to be within normal limits, except as documented in this note. Current Medications Current Medications Current Medications Medications (Trade) Dose Ordered Sig/Pema Start Time Stop Time Status Last Admin Dose Admin Erythromycin (Romycin) 0.5 inch 1X ONCE 05/29/18 06:00 05/29/18 06:01 DC 05/29/18 05:59 0.5 INCH Allergies Allergies Allergies Coded Allergies Type Severity Reaction Last Updated Verified Sulfa (Sulfonamide Antibiotics) Allergy Intermediate 03/08/16 Yes amoxicillin Allergy Intermediate 03/08/16 Yes gabapentin Allergy Intermediate 03/08/16 Yes pregabalin Allergy Intermediate 03/08/16 Yes Physical Exam Physical Exam Constitutional: Well developed, well nourished, no acute distress, non-toxic appearance. [] HENT: Normocephalic, bilateral TMs normal, oropharynx moist Eyes: PERRL, EOMI, conjunctiva normal, bilateral yellow crusting discharge noted. Neck: Normal range of motion, no midline tenderness, supple Cardiovascular: Heart rate regular rhythm, no murmur [] Lungs & Thorax: Bilateral breath sounds clear to auscultation [] Abdomen: Soft, no tenderness Skin: Warm, dry, no erythema; abrasion noted to midline foreheard and upper nasal bridge[] Back: No midline tenderness, no CVA tenderness. [] Extremities: No tenderness or deformity; BLE atrophy noted, right upper arm AV fistula noted with positive thrill Neurologic: Alert and oriented X 3, speech normal Psychologic: Affect normal, judgement normal, mood normal. [] Current Patient Data Vital Signs Vital Signs Date Time Temp Pulse Resp B/P (MAP) Pulse Ox O2 Delivery O2 Flow Rate FiO2 05/29/18 03:52 97.8 63 20 154/74 (100) 96 Room Air 97.8 Lab Values Laboratory Tests Test 05/29/18 05:50 White Blood Count 5.2 x10^3/uL (4.0-11.0) Red Blood Count 2.18 x10^6/uL (4.30-5.70) L Hemoglobin 8.0 g/dL (13.0-17.5) L Hematocrit 23.2 % (39.0-53.0) L Mean Corpuscular Volume 106 fL (79-100) H Mean Corpuscular Hemoglobin 37 pg (25-35) H Mean Corpuscular Hemoglobin Concent 34 g/dL (31-37) Red Cell Distribution Width 15.6 % (11.5-14.5) H Platelet Count 158 x10^3/uL (140-400) Neutrophils (%) (Auto) 77 % (31-73) H Lymphocytes (%) (Auto) 13 % (24-48) L Monocytes (%) (Auto) 8 % (0-9) Eosinophils (%) (Auto) 1 % (0-3) Basophils (%) (Auto) 1 % (0-3) Neutrophils # (Auto) 4.0 x10^3uL (1.8-7.7) Lymphocytes # (Auto) 0.7 x10^3/uL (1.0-4.8) L Monocytes # (Auto) 0.4 x10^3/uL (0.0-1.1) Eosinophils # (Auto) 0.1 x10^3/uL (0.0-0.7) Basophils # (Auto) 0.0 x10^3/uL (0.0-0.2) Prothrombin Time 19.1 SEC (11.7-14.0) H Prothrombin Time INR 1.7 (0.8-1.1) H PTT Pending Sodium Level 138 mmol/L (136-145) Potassium Level 4.2 mmol/L (3.5-5.1) Chloride Level 98 mmol/L (98-107) Carbon Dioxide Level 27 mmol/L (21-32) Anion Gap 13 (6-14) Blood Urea Nitrogen 56 mg/dL (8-26) H Creatinine 6.7 mg/dL (0.7-1.3) H Estimated GFR (Cockcroft-Gault) 8.5 BUN/Creatinine Ratio 8 (6-20) Glucose Level 94 mg/dL (70-99) Calcium Level 8.9 mg/dL (8.5-10.1) Magnesium Level 2.3 mg/dL (1.8-2.4) Total Bilirubin 0.6 mg/dL (0.2-1.0) Aspartate Amino Transferase (AST) 15 U/L (15-37) Alanine Aminotransferase (ALT) 20 U/L (16-63) Alkaline Phosphatase 86 U/L (46-116) Creatine Kinase 49 U/L (39-308) Creatine Kinase MB (Mass) 1.5 ng/mL (0.0-3.6) Creatine Kinase MB Relative Index % (0-4) Troponin I Quantitative < 0.017 ng/mL (0.000-0.055) Total Protein 6.2 g/dL (6.4-8.2) L Albumin 3.2 g/dL (3.4-5.0) L Albumin/Globulin Ratio 1.1 (1.0-1.7) Laboratory Tests 05/29/18 05:50 Laboratory Tests 05/29/18 05:50 EKG EKG @0455: NSR at 64bpm, NO ST elevation Radiology/Procedures Radiology/Procedures PROCEDURE: CT HEAD AND CERVICAL SPINE WO Chest AP portable at 0422: Reason for examination: Dizziness and fall. The heart size is normal. Mediastinum is unremarkable. Lung feng are clear. No acute bony abnormalities are seen. Postop changes are seen at the left shoulder. IMPRESSION: No acute cardiopulmonary disease. CT head without contrast: Axial images were obtained through the brain. No contrast was administered. Reconstruction was performed in sagittal and coronal planes. Ventricular systems are dilated but symmetric. No midline shift is seen. There is no evidence of intracranial hemorrhage, infarct, mass or edema. No abnormalities are seen at the orbits. The paranasal sinuses and mastoid air cells are clear. No acute abnormality seen in the skull. IMPRESSION: Prominent lateral ventricles for the patient's age suggesting central atrophy. No acute intracranial abnormality seen. CT cervical spine without contrast: Helical images were obtained through the cervical spine from skull base through the thoracic apices. No contrast was administered. Reconstruction was performed in sagittal and coronal planes. 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 The odontoid process is intact and normally centered between the lateral masses of C1. The cervical vertebral bodies are normally aligned anteriorly and posteriorly. No acute fracture or subluxation is seen. The intervertebral discs are maintained. Prevertebral soft tissues are normal. No spinal stenosis is evident. IMPRESSION: No acute abnormality seen in the cervical spine. Exposure: One or more of the following individualized dose reduction techniques were utilized for this examination: 1. Automated exposure control 2. Adjustment of the mA and/or kV according to patient size 3. Use of iterative reconstruction technique. Electronically signed by: Willow Anderson MD (05/29/2018 5:33 AM) [facility] Course & Med Decision Making Course & Med Decision Making Pertinent Labs and Imaging studies reviewed. (See chart for details) Patient presents with report of dizziness with history of blunt trauma to forehead status post fall. Patient currently appears neurologically at baseline. Bilateral lower extremity atrophy appreciated. Patient chronically in wheelchair. CT head/cervical spine without acute process. Chest x-ray clear. Ice pack applied to contusion. Abrasion cleaned and dressed. Labs obtained and pending. EKG stable. Eyes with yellow crusting discharge bilaterally. Empiric antibiotic ointment applied. Sign out given to Dr. Chu for follow up on labratory data. If stable, patient will be discharged back to ECF. Discharge paperwork printed and Rx for empiric antibiotic ointment provided. Discussed current findings and plan with patient, who acknowledges understanding and agreement. franck s/o at 6 am. [id number] am pt in no distress, he wants a meal. asked to f/u on labs. pt had mild dizziness which is baseline for him and hit his forehead. ct imaging neg acute. labs without acute process. hb mostly stable from prior, likely from esrd. pt d/c back to snf. Dragon Disclaimer Dragon Disclaimer This electronic medical record was generated, in whole or in part, using a voice recognition dictation system. Departure Departure Impression: Primary Impression: Dizziness Additional Impressions: Forehead contusion Abrasion Conjunctivitis Disposition: 03 TRANSFER SNF Condition: IMPROVED Referrals: WAYLON CONCEPCION MD (PCP) Patient Instructions: Abrasion, [id number], Conjunctivitis (Viral and Bacterial), Facial or Scalp Contusion, [id number], Fall Prevention in Hospitals Scripts Erythromycin Base (Erythromycin) 1 Gm Oint...g. 0.5 INCH OP QID for 5 Days, #1 TUBE Prov: AIXA DOMINIQUE DO 05/29/18 Problem Qualifiers Additional Impressions: Forehead contusion Encounter type: initial encounter Qualified Codes: S00.83XA - Contusion of other part of head, initial encounter Conjunctivitis Conjunctivitis type: unspecified Laterality: bilateral Qualified Codes: H10.9 - Unspecified conjunctivitis AIXA DOMINIQUE DO May 29, 2018 05:44 WENDY CHU MD May 29, 2018 07:25
[2018-05-29] MEDS ORDERED: ERYTHROMYCIN 0.5% OPHTH OINTMENT 1GM TUBE. OU ONE (06:00)
[2018-05-29 06:14] LABS: BASO % 1 % (0-3); CALCIUM 8.9 mg/dL (8.5-10.1); CREATININE 6.7 mg/dL (0.7-1.3); EOS # 0.1 x10^3/uL (0.0-0.7); EOS % 1 % (0-3); GFR 8.5; HEMATOCRIT 23.2 % (39.0-53.0); LYMPH # 0.7 x10^3/uL (1.0-4.8); LYMPH % 13 % (24-48); MEAN CORPUSCULAR HEMOGLOBIN 37 pg (25-35); MEAN CORPUSCULAR HGB CONC 34 g/dL (31-37); MEAN CORPUSCULAR VOLUME 106 fL (79-100); MONO # 0.4 x10^3/uL (0.0-1.1); MONO % 8 % (0-9); NEUT % 77 % (31-73); PLATELET COUNT 158 x10^3/uL (140-400); POTASSIUM 4.2 mmol/L (3.5-5.1); RED BLOOD COUNT 2.18 x10^6/uL (4.30-5.70); RED CELL DISTRIBUTION WIDTH 15.6 % (11.5-14.5); WHITE BLOOD COUNT 5.2 x10^3/uL (4.0-11.0)
[2018-05-29 06:19] LABS: ALBUMIN 3.2 g/dL (3.4-5.0); ALBUMIN/GLOBULIN RATIO 1.1 (1.0-1.7); MAGNESIUM 2.3 mg/dL (1.8-2.4); TOTAL BILIRUBIN 0.6 mg/dL (0.2-1.0); TOTAL PROTEIN 6.2 g/dL (6.4-8.2)
[2018-05-29 06:27] LABS: CREATINE KINASE 49 U/L (39-308)
--- NOTE | 2018-05-29 06:52 | EKG ---
[facility] [address] [place] [address] Test Date: 2018-05-29 Test Time: 04:55:11 Pat Name: EDWARD DOOLEY Department: Room: Gender: M Cdl A Driver: : 1955 Requested By: AIXA DOMINIQUE Order Number: [id number] Reading MD: Jarvis Nixon MD Measurements Intervals Reading Rate: 64 P: 44 IL: 178 QRS: 21 QRSD: 96 T: 40 QT: 416 QTc: 433 Interpretive Statements SINUS RHYTHM Electronically Signed On 05-31-2018 12:19:23 CDT by Jarvis Nixon MD
== END 2018-05-29 08:30 | disposition home or self-care (01) ==
LOC: ER 03:39
DX: S00.83XA Contusion of other part of head, initial encounter (principal); H10.9 Unspecified conjunctivitis; R42 Dizziness and giddiness; R51 Headache; K21.9 Gastro-esophageal reflux disease without esophagitis; E78.00 Pure hypercholesterolemia, unspecified; I12.0 Hypertensive chronic kidney disease with stage 5 chronic kidney disease or end stage renal disease; N18.6 End stage renal disease; Z90.49 Acquired absence of other specified parts of digestive tract; Z90.89 Acquired absence of other organs; Z98.890 Other specified postprocedural states; Z99.2 Dependence on renal dialysis; Z88.1 Allergy status to other antibiotic agents; Z88.2 Allergy status to sulfonamides; Z88.8 Allergy status to other drugs, medicaments and biological substances
CPT/HCPCS: 36415; 70450; 71045; 72125; 80053; 82553; 83735; 84484; 85025; 93005; 99285-25

== ENCOUNTER 2018-08-29 13:07 | Emergency (ER) | payer MEDICARE, OTHER ==
[~2018-08-29] VITALS: Ht 154.9 cm; Wt 86.6 kg
[~2018-08-29 13:07] MED LIST changes: +AMLO10TA4 PO; +BISA5TAB6 PO; +CETI10TA22 PO; +CLON0.5T11 PO; +CLON1PAT11 TD; +DOXY100C2 PO; +ERYT1OIN6 OP; +HYDR100T24 PO; +ISOS20TA2 PO; -LINA145C PO; -LINA290C PO; +LINZESS145 MCG PO; +LINZESS290 MCG PO; +LOPE2CAP88 PO; +NALO25TA2 PO; -OXYC-323 PO; +OXYC1TAB15 PO; +OXYC20TA34 PO; +PANT20TA2 PO; +PROP15DR EACHEYE; +TRAZ-86 PO
[2018-08-29 13:48] LABS: BASO % 1 % (0-3); EOS % 1 % (0-3); HEMATOCRIT 31.2 % (39.0-53.0); HEMOGLOBIN 10.5 g/dL (13.0-17.5); LYMPH # 0.2 x10^3/uL (1.0-4.8); LYMPH % 5 % (24-48); MEAN CORPUSCULAR HEMOGLOBIN 33 pg (25-35); MEAN CORPUSCULAR HGB CONC 34 g/dL (31-37); MEAN CORPUSCULAR VOLUME 99 fL (79-100); MONO # 0.2 x10^3/uL (0.0-1.1); MONO % 7 % (0-9); NEUT # 3.2 x10^3uL (1.8-7.7); NEUT % 87 % (31-73); PLATELET COUNT 102 x10^3/uL (140-400); RED BLOOD COUNT 3.16 x10^6/uL (4.30-5.70); RED CELL DISTRIBUTION WIDTH 14.3 % (11.5-14.5); WHITE BLOOD COUNT 3.6 x10^3/uL (4.0-11.0)
[2018-08-29] MEDS ORDERED: HYDROcodone/APAP 7.5/325MG 1 TAB TABLET PO ONE (14:00)
--- NOTE | 2018-08-29 14:00 | RAD ---
EXAM: Left knee, 3 views; chest, single view. HISTORY: Fall. Pain. COMPARISON: CT chest dated 07/28/2018. FINDINGS: CHEST: A frontal view of the chest is obtained. There is suspected lingular atelectasis. There is slight blunting of the left costophrenic angle likely due to basilar atelectasis. No convincing pleural effusion is seen. There is no pneumothorax. There is mild cardia megaly. There is widening of the right paratracheal stripe due tortuous arch great vessels. There is a left shoulder arthroplasty. There is degenerative change involving the right shoulder. Left knee: 3 views of the left knee are obtained. There is no fracture, dislocation or subluxation. There is mild medial compartment joint space narrowing. There is a small joint effusion. IMPRESSION: 1. Suspected lingular and left basilar atelectasis. 2. No acute osseous finding. There is a suspected trace left knee effusion. Electronically signed by: Shannan Mishra MD (08/29/2018 1:55 PM) [id number]
[2018-08-29 14:01] LABS: CALCIUM 9.3 mg/dL (8.5-10.1); CREATININE 4.4 mg/dL (0.7-1.3); GFR 13.7; POTASSIUM 3.4 mmol/L (3.5-5.1)
[2018-08-29 14:07] LABS: ALBUMIN 3.8 g/dL (3.4-5.0); MAGNESIUM 1.9 mg/dL (1.8-2.4); PHOSPHORUS 2.6 mg/dL (2.6-4.7); TOTAL BILIRUBIN 0.8 mg/dL (0.2-1.0); TOTAL PROTEIN 7.7 g/dL (6.4-8.2)
[2018-08-29 15:15] VITALS: BP 168/79
[2018-08-29 15:15] LABS: % BANDS 2 % (0-9); % EOS 1 % (0-5); % LYMPHS 5 % (24-48); % MONOS 4 % (0-10); % SEGS 88 % (35-66); ANISOCYTOSIS SLIGHT; PLT ESTIMATE ADEQUATE (ADEQUATE); TOXIC GRANULATION SLIGHT; TOXIC VACUOLATION SLIGHT
--- NOTE | 2018-08-29 15:41 | PHYS DOC ---
Past Medical History Past Medical History: Anemia, Anxiety, Depression, GERD, High Cholesterol, Hypertension, Renal Disease, Renal Failure Additional Past Medical Histor: spina bifida- paraplegia, thyroid disease, insomnia, Dialysis Past Surgical History: Appendectomy, Cholecystectomy Additional Past Surgical Histo: stoma to abdomen, L kidney removed, ? bladder removed, hiatal hernia Alcohol Use: None Drug Use: Marijuana Adult General Chief Complaint Chief Complaint: MECHANICAL FALL HPI HPI Patient is a 63-year-old male presents via EMS with report of left knee pain after falling. Patient states that he lost his balance and fell backwards hitting the back of his head against the wall and then landing on his left knee. Patient denies any loss of consciousness and states that he has no headache. He states the pain in his knee is a 7 out of 10 and states the pain is worsened with movement. He denies any other injuries. Patient also indicates that he has had some intermittent shortness of breath. He denies any chest pain or abdominal pain. He does indicate that he has a mild cough but states that that is nothing new. Review of Systems Review of Systems Constitutional: Denies fever or chills [] Respiratory: Complains of intermittent shortness of breath [] Cardiovascular: No additional information not addressed in HPI [] GI: Denies abdominal pain, nausea, vomiting or diarrhea [] Musculoskeletal: Complains of left knee pain [] Neurologic: Denies headache, focal weakness or sensory changes [] All other systems were reviewed and found to be within normal limits, except as documented in this note. Current Medications Current Medications Current Medications Medications (Trade) Dose Ordered Sig/Pema Start Time Stop Time Status Last Admin Dose Admin Acetaminophen/ Hydrocodone Bitart (Lortab 7.5/325) 1 tab 1X ONCE 08/29/18 14:00 08/29/18 14:01 DC 08/29/18 14:16 1 TAB Allergies Allergies Allergies Coded Allergies Type Severity Reaction Last Updated Verified Sulfa (Sulfonamide Antibiotics) Allergy Intermediate 03/08/16 Yes amoxicillin Allergy Intermediate 03/08/16 Yes gabapentin Allergy Intermediate 03/08/16 Yes pregabalin Allergy Intermediate 03/08/16 Yes Physical Exam Physical Exam Constitutional: Well developed, well nourished, no acute distress, non-toxic appearance. [] HENT: Normocephalic, atraumatic, bilateral external ears normal, oropharynx moist, no oral exudates, nose normal. [] Eyes: PERRLA, EOMI, conjunctiva normal, no discharge. [] Neck: Normal range of motion, no tenderness, supple. [] Cardiovascular: Regular rate and rhythm [] Lungs & Thorax: Bilateral breath sounds clear to auscultation [] Abdomen: Bowel sounds normal, soft, no tenderness. [] Skin: Warm, dry, no erythema, no rash. [] Extremities: Left knee demonstrates tenderness to palpation around the patella. Patient does report to pain with flexion. Ligamentous exam is unremarkable. No external signs of trauma are noted on exam. [] Neurologic: Alert and oriented X 3, no focal deficits noted. [] Current Patient Data Vital Signs Vital Signs Date Time Temp Pulse Resp B/P (MAP) Pulse Ox O2 Delivery O2 Flow Rate FiO2 08/29/18 14:16 18 97 Room Air 08/29/18 14:10 79 08/29/18 13:15 100.7 180/88 (118) 100.7 Lab Values Laboratory Tests Test 08/29/18 13:35 White Blood Count 3.6 x10^3/uL (4.0-11.0) L Red Blood Count 3.16 x10^6/uL (4.30-5.70) L Hemoglobin 10.5 g/dL (13.0-17.5) L Hematocrit 31.2 % (39.0-53.0) L Mean Corpuscular Volume 99 fL (79-100) Mean Corpuscular Hemoglobin 33 pg (25-35) Mean Corpuscular Hemoglobin Concent 34 g/dL (31-37) Red Cell Distribution Width 14.3 % (11.5-14.5) Platelet Count 102 x10^3/uL (140-400) L Neutrophils (%) (Auto) 87 % (31-73) H Lymphocytes (%) (Auto) 5 % (24-48) L Monocytes (%) (Auto) 7 % (0-9) Eosinophils (%) (Auto) 1 % (0-3) Basophils (%) (Auto) 1 % (0-3) Neutrophils # (Auto) 3.2 x10^3uL (1.8-7.7) Lymphocytes # (Auto) 0.2 x10^3/uL (1.0-4.8) L Monocytes # (Auto) 0.2 x10^3/uL (0.0-1.1) Eosinophils # (Auto) 0.0 x10^3/uL (0.0-0.7) Basophils # (Auto) 0.0 x10^3/uL (0.0-0.2) Segmented Neutrophils % 88 % (35-66) H Band Neutrophils % 2 % (0-9) Lymphocytes % 5 % (24-48) L Monocytes % 4 % (0-10) Eosinophils % 1 % (0-5) Toxic Granulation Slight Toxic Vacuolation Slight Platelet Estimate Adequate (ADEQUATE) Anisocytosis Slight Sodium Level 135 mmol/L (136-145) L Potassium Level 3.4 mmol/L (3.5-5.1) L Chloride Level 95 mmol/L (98-107) L Carbon Dioxide Level 26 mmol/L (21-32) Anion Gap 14 (6-14) Blood Urea Nitrogen 26 mg/dL (8-26) Creatinine 4.4 mg/dL (0.7-1.3) H Estimated GFR (Cockcroft-Gault) 13.7 BUN/Creatinine Ratio 6 (6-20) Glucose Level 116 mg/dL (70-99) H Calcium Level 9.3 mg/dL (8.5-10.1) Phosphorus Level 2.6 mg/dL (2.6-4.7) Magnesium Level 1.9 mg/dL (1.8-2.4) Total Bilirubin 0.8 mg/dL (0.2-1.0) Aspartate Amino Transferase (AST) 10 U/L (15-37) L Alanine Aminotransferase (ALT) 13 U/L (16-63) L Alkaline Phosphatase 72 U/L (46-116) Total Protein 7.7 g/dL (6.4-8.2) Albumin 3.8 g/dL (3.4-5.0) Albumin/Globulin Ratio 1.0 (1.0-1.7) Laboratory Tests 08/29/18 13:35 Laboratory Tests 08/29/18 13:35 EKG EKG [] Radiology/Procedures Radiology/Procedures [] Impressions: PROCEDURE: KNEE LEFT 3V EXAM: Left knee, 3 views; chest, single view. HISTORY: Fall. Pain. COMPARISON: CT chest dated 07/28/2018. FINDINGS: CHEST: A frontal view of the chest is obtained. There is suspected lingular atelectasis. There is slight blunting of the left costophrenic angle likely due to basilar atelectasis. No convincing pleural effusion is seen. There is no pneumothorax. There is mild cardia megaly. There is widening of the right paratracheal stripe due tortuous arch great vessels. There is a left shoulder arthroplasty. There is degenerative change involving the right shoulder. Left knee: 3 views of the left knee are obtained. There is no fracture, dislocation or subluxation. There is mild medial compartment joint space narrowing. There is a small joint effusion. IMPRESSION: 1. Suspected lingular and left basilar atelectasis. 2. No acute osseous finding. There is a suspected trace left knee effusion. Electronically signed by: Shannan Mishra MD (08/29/2018 1:55 PM) [place] [id number] Course & Med Decision Making Course & Med Decision Making Pertinent Labs and Imaging studies reviewed. (See chart for details) [] Dragon Disclaimer Dragon Disclaimer This electronic medical record was generated, in whole or in part, using a voice recognition dictation system. Departure Departure Impression: Primary Impression: Contusion of left knee Disposition: HOME, SELF-CARE Condition: STABLE Referrals: WAYLON CONCEPCION MD (PCP) Patient Instructions: Knee Pain Scripts Tramadol Hcl (TRAMADOL HCL) 50 Mg Tablet 50 MG PO Q6HRS PRN for PAIN for 3 Days, #12 TAB Prov: TIFFANY CHATMAN Jr. DO 08/29/18 Problem Qualifiers Primary Impression: Contusion of left knee Encounter type: initial encounter Qualified Codes: S80.02XA - Contusion of left knee, initial encounter TIFFANY CHATMAN Jr. DO Aug 29, 2018 15:41
[2018-08-29] MEDS ORDERED: TRAM50TA PO (15:48)
[2018-08-29] MEDS ORDERED: FLUT9.9S NS (16:03)
--- NOTE | 2018-08-30 06:13 | EKG ---
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
== END 2018-08-29 18:50 | disposition home or self-care (01) ==
LOC: ER 13:07
DX: S80.02XA Contusion of left knee, initial encounter (principal); R07.89 Other chest pain; K21.9 Gastro-esophageal reflux disease without esophagitis; E78.00 Pure hypercholesterolemia, unspecified; I12.9 Hypertensive chronic kidney disease with stage 1 through stage 4 chronic kidney disease, or unspecified chronic kidney disease; N18.9 Chronic kidney disease, unspecified; Z99.2 Dependence on renal dialysis; Z90.89 Acquired absence of other organs; Z90.49 Acquired absence of other specified parts of digestive tract; Z98.890 Other specified postprocedural states; Z88.1 Allergy status to other antibiotic agents; Z88.2 Allergy status to sulfonamides; Z88.8 Allergy status to other drugs, medicaments and biological substances; W18.09XA Striking against other object with subsequent fall, initial encounter; Y93.89 Activity, other specified; Y92.89 Other specified places as the place of occurrence of the external cause; Y99.8 Other external cause status
CPT/HCPCS: 36415; 71045; 73562; 80053; 83735; 84100; 85007; 85025; 93005; 99284

== ENCOUNTER 2018-11-14 08:44 | Inpatient (IN) | payer MEDICARE, OTHER ==
[~2018-11-14] VITALS: Ht 154.9 cm; Wt 76.8 kg
[~2018-11-14 08:44] MED LIST changes: -CALC667T PO; +CALC667T4 PO; +FLUT9.9S NS; +OMEP20CA10 PO; -OMEP20CA9 PO; +TRAM50TA PO; +TRAZ-118 PO; -TRAZ-85 PO
--- NOTE | 2018-11-14 09:35 | RAD ---
CHEST AP ONLY Clinical Indication: CHEST PAIN Comparison: AP chest August 29, 2018. Findings: Stable cardiomegaly. Mild lingular atelectasis or scarring. The right lung is clear. There is no pneumothorax. No pleural effusion is appreciated. Left shoulder arthroplasty. Degenerative arthropathy of the right shoulder. IMPRESSION: 1. Mild lingular atelectasis or scarring. 2. Stable cardiomegaly. Electronically signed by: Terry Patel MD (11/14/2018 9:33 AM) [id number]
[2018-11-14 09:45] LABS: BASO % 1 % (0-3); EOS # 0.1 x10^3/uL (0.0-0.7); EOS % 2 % (0-3); HEMATOCRIT 35.8 % (39.0-53.0); HEMOGLOBIN 11.9 g/dL (13.0-17.5); LYMPH # 0.5 x10^3/uL (1.0-4.8); LYMPH % 10 % (24-48); MEAN CORPUSCULAR HEMOGLOBIN 33 pg (25-35); MEAN CORPUSCULAR HGB CONC 33 g/dL (31-37); MEAN CORPUSCULAR VOLUME 98 fL (79-100); MONO # 0.3 x10^3/uL (0.0-1.1); MONO % 7 % (0-9); NEUT # 3.6 x10^3uL (1.8-7.7); NEUT % 80 % (31-73); PLATELET COUNT 150 x10^3/uL (140-400); RED BLOOD COUNT 3.67 x10^6/uL (4.30-5.70); RED CELL DISTRIBUTION WIDTH 14.8 % (11.5-14.5); WHITE BLOOD COUNT 4.5 x10^3/uL (4.0-11.0)
[2018-11-14 09:53] LABS: CALCIUM 8.1 mg/dL (8.5-10.1); CREATININE 5.2 mg/dL (0.7-1.3); GFR 11.3
[2018-11-14 09:59] LABS: ALBUMIN 3.3 g/dL (3.4-5.0); TOTAL BILIRUBIN 0.7 mg/dL (0.2-1.0); TOTAL PROTEIN 6.5 g/dL (6.4-8.2)
--- NOTE | 2018-11-14 11:01 | EKG ---
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
--- NOTE | 2018-11-14 11:12 | PHYS DOC ---
Past Medical History Past Medical History: Anemia, Anxiety, Depression, GERD, High Cholesterol, Hypertension, Renal Disease, Renal Failure Additional Past Medical Histor: spina bifida- paraplegia, thyroid disease, insomnia, Dialysis Past Surgical History: Appendectomy, Cholecystectomy Additional Past Surgical Histo: stoma to abdomen, L kidney removed, ? bladder removed, hiatal hernia Alcohol Use: None Drug Use: Marijuana Adult General Chief Complaint Chief Complaint: CHEST PAIN HPI HPI 63-year-old male presents with a 2 day history of waxing and waning chest pain. He states initially it was tight in nature then became sharp in his neck and tied again. He has had some associated shortness of breath and related orthopnea. He denies any fever chills or sweats. He has had some lower extremity swelling. No nausea or vomiting. He denies any diaphoresis. He states he has had similar problems in the past and they've never been able to find anything with his heart. He did have a remote stress test he describes many many years ago. He does not remember having an echocardiogram any time recently. [] Review of Systems Review of Systems Constitutional: Denies fever or chills [] Eyes: Denies change in visual acuity, redness, or eye pain [] HENT: Denies nasal congestion or sore throat [] Respiratory: Denies cough or shortness of breath [] Cardiovascular: No additional information not addressed in HPI [] GI: Denies abdominal pain, nausea, vomiting, bloody stools or diarrhea [] : Denies dysuria or hematuria [] Musculoskeletal: Denies back pain or joint pain [] Integument: Denies rash or skin lesions [] Neurologic: Denies headache, focal weakness or sensory changes [] Endocrine: Denies polyuria or polydipsia [] All other systems were reviewed and found to be within normal limits, except as documented in this note. Current Medications Current Medications Current Medications Medications (Trade) Dose Ordered Sig/Pema Start Time Stop Time Status Last Admin Dose Admin Aspirin (Children'S Aspirin) 324 mg 1X ONCE 11/14/18 11:15 11/14/18 11:16 DC 11/14/18 11:42 324 MG Furosemide (Lasix) 80 mg 1X ONCE 11/14/18 11:15 11/14/18 11:16 DC 11/14/18 11:38 80 MG Nitroglycerin (Nitro-Bid Oint) 1 inch 1X ONCE 3/26/19 11:15 11/14/18 11:16 DC 11/14/18 11:40 1 INCH Ondansetron HCl (Zofran) 4 mg PRN Q8HRS PRN 11/14/18 11:15 11/15/18 11:14 Allergies Allergies Allergies Coded Allergies Type Severity Reaction Last Updated Verified Sulfa (Sulfonamide Antibiotics) Allergy Intermediate 03/08/16 Yes amoxicillin Allergy Intermediate 03/08/16 Yes gabapentin Allergy Intermediate 03/08/16 Yes pregabalin Allergy Intermediate 03/08/16 Yes Physical Exam Physical Exam Constitutional: Well developed, well nourished, mild distress, non-toxic appearance. [] HENT: Normocephalic, atraumatic, bilateral external ears normal, oropharynx moist, no oral exudates, nose normal. [] Eyes: PERRLA, EOMI, conjunctiva normal, no discharge. [] Neck: Normal range of motion, no tenderness, supple, no stridor. [] Cardiovascular:Heart rate regular rhythm, no murmur [] Lungs & Thorax: Bilateral breath sounds clear to auscultation [] Abdomen: Bowel sounds normal, soft, no tenderness, no masses, no pulsatile masses. [] Skin: Warm, dry, no erythema, no rash. [] Back: No tenderness, no CVA tenderness. [] Extremities: No tenderness, no cyanosis, no clubbing, ROM intact, no edema. [] Neurologic: Alert and oriented X 3, normal motor function, normal sensory function, no focal deficits noted. [] Psychologic: Anxious. [] Current Patient Data Vital Signs Vital Signs Date Time Temp Pulse Resp B/P (MAP) Pulse Ox O2 Delivery O2 Flow Rate FiO2 11/14/18 10:58 64 17 157/84 (108) Room Air 11/14/18 10:28 96 11/14/18 08:44 98.7 98.7 Lab Values Laboratory Tests Test 11/14/18 09:35 White Blood Count 4.5 x10^3/uL (4.0-11.0) Red Blood Count 3.67 x10^6/uL (4.30-5.70) L Hemoglobin 11.9 g/dL (13.0-17.5) L Hematocrit 35.8 % (39.0-53.0) L Mean Corpuscular Volume 98 fL (79-100) Mean Corpuscular Hemoglobin 33 pg (25-35) Mean Corpuscular Hemoglobin Concent 33 g/dL (31-37) Red Cell Distribution Width 14.8 % (11.5-14.5) H Platelet Count 150 x10^3/uL (140-400) Neutrophils (%) (Auto) 80 % (31-73) H Lymphocytes (%) (Auto) 10 % (24-48) L Monocytes (%) (Auto) 7 % (0-9) Eosinophils (%) (Auto) 2 % (0-3) Basophils (%) (Auto) 1 % (0-3) Neutrophils # (Auto) 3.6 x10^3uL (1.8-7.7) Lymphocytes # (Auto) 0.5 x10^3/uL (1.0-4.8) L Monocytes # (Auto) 0.3 x10^3/uL (0.0-1.1) Eosinophils # (Auto) 0.1 x10^3/uL (0.0-0.7) Basophils # (Auto) 0.0 x10^3/uL (0.0-0.2) Sodium Level 138 mmol/L (136-145) Potassium Level 4.0 mmol/L (3.5-5.1) Chloride Level 98 mmol/L (98-107) Carbon Dioxide Level 31 mmol/L (21-32) Anion Gap 9 (6-14) Blood Urea Nitrogen 54 mg/dL (8-26) H Creatinine 5.2 mg/dL (0.7-1.3) H Estimated GFR (Cockcroft-Gault) 11.3 BUN/Creatinine Ratio 10 (6-20) Glucose Level 107 mg/dL (70-99) H Calcium Level 8.1 mg/dL (8.5-10.1) L Total Bilirubin 0.7 mg/dL (0.2-1.0) Aspartate Amino Transferase (AST) 9 U/L (15-37) L Alanine Aminotransferase (ALT) 15 U/L (16-63) L Alkaline Phosphatase 70 U/L (46-116) Troponin I Quantitative 0.040 ng/mL (0.000-0.055) XV-Fsj-[id number]-Type Natriuretic Peptide > 55827 pg/mL (0-124) H Total Protein 6.5 g/dL (6.4-8.2) Albumin 3.3 g/dL (3.4-5.0) L Albumin/Globulin Ratio 1.0 (1.0-1.7) Laboratory Tests 11/14/18 09:35 Laboratory Tests 11/14/18 09:35 EKG EKG [] Interpretation Time: EKG: Normal sinus rhythm rate of [address]-T changes Radiology/Procedures Radiology/Procedures [] Impressions: PROCEDURE: CHEST AP ONLY CHEST AP ONLY Clinical Indication: CHEST PAIN Comparison: AP chest August 29, 2018. Findings: Stable cardiomegaly. Mild lingular atelectasis or scarring. The right lung is clear. There is no pneumothorax. No pleural effusion is appreciated. Left shoulder arthroplasty. Degenerative arthropathy of the right shoulder. IMPRESSION: 1. Mild lingular atelectasis or scarring. 2. Stable cardiomegaly. Course & Med Decision Making Course & Med Decision Making Pertinent Labs and Imaging studies reviewed. (See chart for details) [ED course: Evaluation reveals a 63-year-old male with multiple medical problems including end-stage renal disease who developed chest pain that sounded fairly typical. He has a heart score of 6. We will go ahead and put him in the hospital for further evaluation. He did have dialysis today. His BNP is elevated. I think is prudent for him to have a echocardiogram. I spoke with Dr. Vuong who agrees to accept the patient for admission.] Dragon Disclaimer Dragon Disclaimer This electronic medical record was generated, in whole or in part, using a voice recognition dictation system. Departure Departure Impression: Primary Impression: Chest pain Additional Impression: Congestive heart failure Disposition: ADMITTED INPATIENT Admitting Physician: Geraldine Concepcion Condition: GUARDED Referrals: GERALDINE CONCEPCION MD (PCP) Problem Qualifiers Primary Impression: Chest pain Chest pain type: unspecified Qualified Codes: R07.9 - Chest pain, unspecified Additional Impression: Congestive heart failure Heart failure type: systolic Heart failure chronicity: acute Qualified Codes: I50.21 - Acute systolic (congestive) heart failure JESSE MANN DO Nov 14, 2018 11:12
[2018-11-14] MEDS ORDERED: NITROGLYCERIN OINT 1 GM PACKET. TP ONE (11:15)
[2018-11-14] MEDS ORDERED: ASPIRIN CHEWABLE 81 MG TABLET. PO ONE (11:15)
[2018-11-14] MEDS ORDERED: FUROSEMIDE 40 MG/4 ML VIAL. IVP ONE (11:15)
--- NOTE | 2018-11-14 12:25 | CARD ---
MR#: [id number] Date of Study: 11/14/2018 Ordering Physician: JESSE MANN, Referring Physician: WAYLON CONCEPCION Tech: Kaycee Lyles [facility] APPROVED REPORT EXAM: LIMITED Two-dimensional and M-mode echocardiogram with Doppler and color Doppler. Other Information Quality : AverageHR: 68bpm Rhythm : NSR INDICATION Chest Pain 2D DIMENSIONS RVDd4.0 (2.9-3.5cm)Left Atrium(2D)4.1 (1.6-4.0cm) IVSd1.2 (0.7-1.1cm)Aortic Root(2D)3.2 (2.0-3.7cm) LVDd5.1 (3.9-5.9cm)PWd1.1 (0.7-1.1cm) LVDs4.0 (2.5-4.0cm)FS (%) 22.4 % SV55.7 mlLVEF(%)45.0 (>50%) M-Mode DIMENSIONS Left Atrium(MM)4.10 (2.5-4.0cm)Aortic Root3.30 (2.2-3.7cm) Mitral Valve MV E Tcbdqdps674.7cm/sMV E Peak Gr.15mmHg MV DECEL [id number] A Lcejglzk86.6cm/s MV E Mean Gr.6mmHgE/A Ratio2.0 Tricuspid Valve TR P. Obrafjei613kb/sRAP [id number] TR Peak Gr.[id number] LEFT VENTRICLE The left ventricle is normal size. There is mild concentric left ventricular hypertrophy. Left ventri amanda systolic function is low normal. The Ejection Fraction is 50%. There is global hypokinesis of the left ventricle. Tissue Doppler imaging reveals moderate left ventricular diastolic dysfunction. RIGHT VENTRICLE The right ventricle is mildly dilated. There is normal right ventricular wall thickness. RV Systolic function is mildly reduced. ATRIA The left atrium is mildly dilated. The right atrium is mildly dilated. AORTIC VALVE The aortic valve is thickened but opens well. The aortic valve is trileaflet. Doppler and Color Flow revealed no significant aortic regurgitation. There is no significant aortic valvular stenosis. MITRAL VALVE The mitral valve leaflets are thickened and mildly sclerotic. There is no evidence of mitral valve pr olapse. There is mild mitral valve stenosis with a maximum pressure gradient of 18 mmHg and mean pres sure gradient of 4-7 mmHg. Doppler and Color-flow revealed moderate mitral regurgitation. TRICUSPID VALVE The tricuspid valve is normal in structure and function. Doppler and Color Flow revealed mild tricusp id regurgitation. There is moderate pulmonary hypertension. The PA pressure was estimated at 58 mmHg. There is no tricuspid valve prolapse or vegetation. There is no tricuspid valve stenosis. PULMONIC VALVE The pulmonic valve is not well visualized. GREAT VESSELS The aortic root is normal in size. PERICARDIAL EFFUSION There is no evidence of significant pericardial effusion. Critical Notification Critical Value: No <Conclusion> Left ventricle systolic function is low normal. The Ejection Fraction is 50%. There is global hypokinesis of the left ventricle. RV Systolic function is mildly reduced. There is mild mitral valve stenosis with a maximum pressure gradient of 18 mmHg and mean pressure gra dient of 4-7 mmHg. Doppler and Color Flow revealed mild tricuspid regurgitation. There is moderate pulmonary hypertensio n. The PA pressure was estimated at 58 mmHg. Signed by : Jarvis Nixon, Electronically Approved : 11/14/2018 12:25:37
[2018-11-14 12:45] VITALS: BP 184/93
--- NOTE | 2018-11-14 13:38 | PDOC2 ---
CONSULT Date of Consult Date of Consult DATE: 11/14/18 TIME: 13:33 Reason for Consult Reason for Consult: ESRD Referring Physician Referring Physician: ZARA Identification/Chief Complaint Chief Complaint CHEST PAIN Source Source: Chart review, Patient History of Present Illness Reason for Visit: THIS IS A 69 YR OLD ESRD PT ON HD TTS. WENT TO HD THIS AM AND WAS HAVING CHEST PAIN WHILE ON TX. PT THEN REPORTED THAT HE HAS HAD CHEST PAIN SINCE 4 AM AND THE NH GAVE HIM A NTG WHICH DID NOT MAKE THINGS BETTER. HE WAS THEN SENT TO THE DIALYSIS UNIT WHERE THEY WERE NOT AWARE OF HIS CHEST PAIN EARLIER. HD WAS STARTED AND WHEN HE REPORTED SIMILAR CHEST PAIN AND SOB 2 MORE SL NTG WAS GIVEN WITH NO IMPROVEMENT AND THEN HE WAS SENT TO THE ER. LABS ARE C/W ESRD Past Medical History Cardiovascular: HTN CENTRAL NERVOUS SYSTEM: Seizure, Other GI: GERD Heme/Onc: Anemia NOS Psych: Other Musculoskeletal: Other Renal/: Chronic renal failure, Other Endocrine: Hypothyroidism, Hyperparathyroidism Past Surgical History Past Surgical History: Other Family History Family History: Hypertension, Stroke Social History ALCOHOL: none Drugs: None Lives: Alone Current Problem List Problem List Problems Medical Problems: (1) Chest pain Status: Acute (2) Congestive heart failure Status: Acute Current Medications Current Medications Current Medications Furosemide (Lasix) 80 mg 1X ONCE IVP Last administered on 11/14/18at 11:38; Start 11/14/18 at 11:15; Stop 11/14/18 at 11:16; Status DC Aspirin (Children'S Aspirin) 324 mg 1X ONCE PO Last administered on 11/14/18at 11:42; Start 11/14/18 at 11:15; Stop 11/14/18 at 11:16; Status DC Nitroglycerin (Nitro-Bid Oint) 1 inch 1X ONCE TP Last administered on at 11:40; Start 11/14/18 at 11:15; Stop 11/14/18 at 11:16; Status DC Ondansetron HCl (Zofran) 4 mg PRN Q8HRS PRN IV NAUSEA/VOMITING; Start 11/14/18 at 11:15; Stop 11/15/18 at 11:14 Active Scripts Active Flonase Allergy Relief (Fluticasone Propionate) 9.9 Ml [place].susp 2 Sprays NS DAILY Tramadol Hcl 50 Mg Tablet 50 Mg PO Q6HRS PRN 3 Days Doxycycline Hyclate 100 Mg Capsule 1 Cap PO BID 7 Days Hydralazine Hcl 100 Mg Tablet 1 Tab PO TID 30 Days Isosorbide Mononitrate 20 Mg Tablet 90 Mg PO DAILY 30 Days Linzess (Linaclotide) 290 Mcg Capsule 290 Mcg PO DAILY Colace (Docusate Sodium) 100 Mg Capsule 1 Cap PO BID Reported Movantik (Naloxegol Oxalate) 25 Mg Tablet 25 Mg PO DAILY Zyrtec (Cetirizine Hcl) 10 Mg Tablet 1 Tab PO DAILY Cymbalta (Duloxetine Hcl) 60 Mg Capsule.dr 60 Mg PO BID Catapres-Tts 3 (Clonidine) 1 Each Patch.tdwk 1 Each TD WEEKLY Norvasc (Amlodipine Besylate) 10 Mg Tablet 10 Mg PO DAILY Systane 0.3-0.4% Eye Drops (Propylene Glycol/Peg 400) 15 Ml Drops 1 Drop EACHEYE QID Women's Laxative (Bisacodyl) 5 Mg Tablet 1 Tab PO UD Protonix (Pantoprazole Sodium) 20 Mg Tablet.dr 40 Mg PO DAILY Imodium A-D (Loperamide HCl) 2 Mg Capsule 2 Mg PO DAILY Clonazepam 0.5 Mg Tablet 1 Tab PO BID Oxycontin (Oxycodone HCl) 20 Mg Tab.er.12h 10 Mg PO BID Trazodone Hcl 100 Mg Tablet 1 Tab PO QHS Percocet 5-325 Mg Tablet (Oxycodone/Acetaminophen) 1 Each Tablet 1 Tab PO PRN Q4-6HRS PRN Bisacodyl 5 Mg Tablet.dr 5 Mg PO Q12HR PRN Zoloft (Sertraline Hcl) 100 Mg Tablet 2 Tab PO DAILY Tylenol (Acetaminophen) 325 Mg Tablet 650 Mg PO Q6HRS Reglan (Metoclopramide Hcl) 10 Mg Tablet 5 Mg PO TID Calcium Acetate 667 Mg Tablet 667 Mg PO TIDWMEALS Nitrostat (Nitroglycerin) 0.4 Mg Tab.subl 0.4 Mg SL PRN Q10MIN PRN Nephro-Dangelo Tablet (Folic Acid/Vitamin B Comp W-C) 0.8 Mg Tablet 1 Tab PO DAILY Miralax (Polyethylene Glycol 3350) 17 Gm Powd.pack 1 Packet PO BID Lidocaine-Prilocaine Cream (Lidocaine/Prilocaine) 30 Gm Cream..g. 1 Adrienne TP UD Levothyroxine Sodium 75 Mcg Tablet 1 Tab PO DAILY Calcium Carbonate 650 Mg Tablet 1,000 Mg PO QHS Allergies Allergies: Coded Allergies: Sulfa (Sulfonamide Antibiotics) (Verified Allergy, Intermediate, 03/08/16) amoxicillin (Verified Allergy, Intermediate, 03/08/16) gabapentin (Verified Allergy, Intermediate, 03/08/16) pregabalin (Verified Allergy, Intermediate, 03/08/16) ROS General: YES: Fatigue, Malaise, Appetite PSYCHOLOGICAL ROS: YES: Anxiety, Depression Eyes: Yes Decreased vision HEENT: YES: Hannah ALLERGY AND IMMUNOLOGY: YES: Seasonal Allergies Respiratory: YES: Cough, Shortness of breath Cardiovascular: yes Chest Pain Gastrointestinal: Yes Constipation Genitourinary: YES Other (ANURIA) Musculoskeletal: Yes Muscular Weakness Neurological: Yes Weakness Skin: Yes Dry Skin Physical Exam General: Alert, Oriented X3, Cooperative, No acute distress HEENT: Atraumatic, PERRLA Lungs: Clear to auscultation, Normal air movement Heart: Regular rate, Normal S1, Normal S2 Abdomen: Normal bowel sounds, Soft, No tenderness Extremities: No clubbing, No cyanosis Neuro: Normal speech, Sensation intact Psych/Mental Status: Mental status NL, Mood NL MUSCULOSKELETAL: No joint tenderness, No deformity, No swelling Vitals VITALS Vital Signs Date Time Temp Pulse Resp B/P (MAP) Pulse Ox O2 Delivery O2 Flow Rate FiO2 11/14/18 12:45 97.5 68 18 184/93 (123) 96 97.5 11/14/18 11:28 Room Air Labs Labs Laboratory Tests Test 11/14/18 09:35 White Blood Count 4.5 x10^3/uL (4.0-11.0) Red Blood Count 3.67 x10^6/uL (4.30-5.70) Hemoglobin 11.9 g/dL (13.0-17.5) Hematocrit 35.8 % (39.0-53.0) Mean Corpuscular Volume 98 fL (79-100) Mean Corpuscular Hemoglobin 33 pg (25-35) Mean Corpuscular Hemoglobin Concent 33 g/dL (31-37) Red Cell Distribution Width 14.8 % (11.5-14.5) Platelet Count 150 x10^3/uL (140-400) Neutrophils (%) (Auto) 80 % (31-73) Lymphocytes (%) (Auto) 10 % (24-48) Monocytes (%) (Auto) 7 % (0-9) Eosinophils (%) (Auto) 2 % (0-3) Basophils (%) (Auto) 1 % (0-3) Neutrophils # (Auto) 3.6 x10^3uL (1.8-7.7) Lymphocytes # (Auto) 0.5 x10^3/uL (1.0-4.8) Monocytes # (Auto) 0.3 x10^3/uL (0.0-1.1) Eosinophils # (Auto) 0.1 x10^3/uL (0.0-0.7) Basophils # (Auto) 0.0 x10^3/uL (0.0-0.2) Sodium Level 138 mmol/L (136-145) Potassium Level 4.0 mmol/L (3.5-5.1) Chloride Level 98 mmol/L (98-107) Carbon Dioxide Level 31 mmol/L (21-32) Anion Gap 9 (6-14) Blood Urea Nitrogen 54 mg/dL (8-26) Creatinine 5.2 mg/dL (0.7-1.3) Estimated GFR (Cockcroft-Gault) 11.3 BUN/Creatinine Ratio 10 (6-20) Glucose Level 107 mg/dL (70-99) Calcium Level 8.1 mg/dL (8.5-10.1) Total Bilirubin 0.7 mg/dL (0.2-1.0) Aspartate Amino Transf (AST/SGOT) 9 U/L (15-37) Alanine Aminotransferase (ALT/SGPT) 15 U/L (16-63) Alkaline Phosphatase 70 U/L (46-116) Troponin I Quantitative 0.040 ng/mL (0.000-0.055) OR-Mel-M-Type Natriuretic Peptide > 64609 pg/mL (0-124) Total Protein 6.5 g/dL (6.4-8.2) Albumin 3.3 g/dL (3.4-5.0) Albumin/Globulin Ratio 1.0 (1.0-1.7) Laboratory Tests Test 11/14/18 09:35 White Blood Count 4.5 x10^3/uL (4.0-11.0) Red Blood Count 3.67 x10^6/uL (4.30-5.70) Hemoglobin 11.9 g/dL (13.0-17.5) Hematocrit 35.8 % (39.0-53.0) Mean Corpuscular Volume 98 fL (79-100) Mean Corpuscular Hemoglobin 33 pg (25-35) Mean Corpuscular Hemoglobin Concent 33 g/dL (31-37) Red Cell Distribution Width 14.8 % (11.5-14.5) Platelet Count 150 x10^3/uL (140-400) Neutrophils (%) (Auto) 80 % (31-73) Lymphocytes (%) (Auto) 10 % (24-48) Monocytes (%) (Auto) 7 % (0-9) Eosinophils (%) (Auto) 2 % (0-3) Basophils (%) (Auto) 1 % (0-3) Neutrophils # (Auto) 3.6 x10^3uL (1.8-7.7) Lymphocytes # (Auto) 0.5 x10^3/uL (1.0-4.8) Monocytes # (Auto) 0.3 x10^3/uL (0.0-1.1) Eosinophils # (Auto) 0.1 x10^3/uL (0.0-0.7) Basophils # (Auto) 0.0 x10^3/uL (0.0-0.2) Sodium Level 138 mmol/L (136-145) Potassium Level 4.0 mmol/L (3.5-5.1) Chloride Level 98 mmol/L (98-107) Carbon Dioxide Level 31 mmol/L (21-32) Anion Gap 9 (6-14) Blood Urea Nitrogen 54 mg/dL (8-26) Creatinine 5.2 mg/dL (0.7-1.3) Estimated GFR (Cockcroft-Gault) 11.3 BUN/Creatinine Ratio 10 (6-20) Glucose Level 107 mg/dL (70-99) Calcium Level 8.1 mg/dL (8.5-10.1) Total Bilirubin 0.7 mg/dL (0.2-1.0) Aspartate Amino Transf (AST/SGOT) 9 U/L (15-37) Alanine Aminotransferase (ALT/SGPT) 15 U/L (16-63) Alkaline Phosphatase 70 U/L (46-116) Troponin I Quantitative 0.040 ng/mL (0.000-0.055) FN-Pgu-Y-Type Natriuretic Peptide > 72611 pg/mL (0-124) Total Protein 6.5 g/dL (6.4-8.2) Albumin 3.3 g/dL (3.4-5.0) Albumin/Globulin Ratio 1.0 (1.0-1.7) Assessment/Plan Assessment/Plan IMP CHEST PAIN HTN ANEMIA ESRD PLAN HD NEEDED AND ON TTS ARANESP CARDIOLOGY EVALUATION KELLY CALHOUN MD Nov 14, 2018 13:38
--- NOTE | 2018-11-14 13:57 | PDOC2 ---
UZIEL CARRANZA AVIATION MANAGER 11/14/18 1357: CARDIAC CONSULT DATE OF CONSULT Date of Consult DATE: 11/14/18 TIME: 13:38 REASON FOR CONSULT Reason for Consult: Chest pain, chf REFERRING PHYSICIAN Referring Physician: Jaqueline SOURCE Source: Chart review, Patient HISTORY OF PRESENT ILLNESS HISTORY OF PRESENT ILLNESS This is a pleasant 63 yo male admitted for complains of chest pain. This was noted to be sharp and reproducible with palpation easily both epigastric and pain to sternal borders more localized to left sternal region but he did described some chest pressure that went to both shoulders. No falls or any injury but it was hard for him to breath in when this occurred. He does have GERD but has not been taking his reflux med. Denies any fever or chills. No hx of CAD. PAST MEDICAL HISTORY Past Medical History Cardiovascular: HTN, pulmonary HTN CENTRAL NERVOUS SYSTEM: Seizure, Other (spina bifida, arnold chiari) GI: GERD Heme/Onc: Anemia NOS Psych: Other Musculoskeletal: Other (paraplegia; chronic pain sydrome) ENT: Other ([place]AN[place]) Renal/: Chronic renal failure (ESRD), Other (neurogenic bladder) Endocrine: Hypothyroidism PAST SURGICAL HISTORY Past Surgical History nephrectomy, urotersotomy,ileal conduit FAMILY HISTORY Family History Noncontributory to CV SOCIAL HISTORY Smoke: No ALCOHOL: none Drugs: None Lives: Senior Living CURRENT MEDICATIONS CURRENT MEDICATIONS Current Medications Medications (Trade) Dose Ordered Sig/Pema Route PRN Reason Start Time Stop Time Status Last Admin Dose Admin Furosemide (Lasix) 80 mg 1X ONCE IVP 11/14/18 11:15 11/14/18 11:16 DC 11/14/18 11:38 Aspirin (Children'S Aspirin) 324 mg 1X ONCE PO 11/14/18 11:15 11/14/18 11:16 DC 11/14/18 11:42 Nitroglycerin (Nitro-Bid Oint) 1 inch 1X ONCE TP 11/14/18 11:15 11/14/18 11:16 DC 11/14/18 11:40 ALLERGIES ALLERGIES: Coded Allergies: Sulfa (Sulfonamide Antibiotics) (Verified Allergy, Intermediate, 03/08/16) amoxicillin (Verified Allergy, Intermediate, 03/08/16) gabapentin (Verified Allergy, Intermediate, 03/08/16) pregabalin (Verified Allergy, Intermediate, 03/08/16) ROS Review of System 14 point ROS evaluated with pertinent positives noted per HPI PHYSICAL EXAM General: Alert, Oriented X3, Cooperative, No acute distress HEENT: Atraumatic, Mucous membr. moist/pink Lungs: Other (diminished bases) Heart: Regular rate (SR), Normal S1, Normal S2, Other (3/6 systolic murmur to LL border) Abdomen: Soft, Other (truncal obesity) Extremities: No cyanosis, Other (2+ bilateral LE edema) Skin: No breakdown, No significant lesion Neuro: Normal speech, Sensation intact Psych/Mental Status: Mental status NL, Mood NL MUSCULOSKELETAL: Osteoarthritic changes both hands VITALS VITALS Vital Signs Date Time Temp Pulse Resp B/P (MAP) Pulse Ox O2 Delivery O2 Flow Rate FiO2 11/14/18 12:45 97.5 68 18 184/93 (123) 96 97.5 11/14/18 11:28 Room Air LABS Lab: Laboratory Tests Test 11/14/18 09:35 White Blood Count 4.5 x10^3/uL (4.0-11.0) Red Blood Count 3.67 x10^6/uL (4.30-5.70) Hemoglobin 11.9 g/dL (13.0-17.5) Hematocrit 35.8 % (39.0-53.0) Mean Corpuscular Volume 98 fL (79-100) Mean Corpuscular Hemoglobin 33 pg (25-35) Mean Corpuscular Hemoglobin Concent 33 g/dL (31-37) Red Cell Distribution Width 14.8 % (11.5-14.5) Platelet Count 150 x10^3/uL (140-400) Neutrophils (%) (Auto) 80 % (31-73) Lymphocytes (%) (Auto) 10 % (24-48) Monocytes (%) (Auto) 7 % (0-9) Eosinophils (%) (Auto) 2 % (0-3) Basophils (%) (Auto) 1 % (0-3) Neutrophils # (Auto) 3.6 x10^3uL (1.8-7.7) Lymphocytes # (Auto) 0.5 x10^3/uL (1.0-4.8) Monocytes # (Auto) 0.3 x10^3/uL (0.0-1.1) Eosinophils # (Auto) 0.1 x10^3/uL (0.0-0.7) Basophils # (Auto) 0.0 x10^3/uL (0.0-0.2) Sodium Level 138 mmol/L (136-145) Potassium Level 4.0 mmol/L (3.5-5.1) Chloride Level 98 mmol/L (98-107) Carbon Dioxide Level 31 mmol/L (21-32) Anion Gap 9 (6-14) Blood Urea Nitrogen 54 mg/dL (8-26) Creatinine 5.2 mg/dL (0.7-1.3) Estimated GFR (Cockcroft-Gault) 11.3 BUN/Creatinine Ratio 10 (6-20) Glucose Level 107 mg/dL (70-99) Calcium Level 8.1 mg/dL (8.5-10.1) Total Bilirubin 0.7 mg/dL (0.2-1.0) Aspartate Amino Transf (AST/SGOT) 9 U/L (15-37) Alanine Aminotransferase (ALT/SGPT) 15 U/L (16-63) Alkaline Phosphatase 70 U/L (46-116) Troponin I Quantitative 0.040 ng/mL (0.000-0.055) XY-Vlz-G-Type Natriuretic Peptide > 95903 pg/mL (0-124) Total Protein 6.5 g/dL (6.4-8.2) Albumin 3.3 g/dL (3.4-5.0) Albumin/Globulin Ratio 1.0 (1.0-1.7) ECHOCARDIOGRAM ECHOCARDIOGRAM <Conclusion> Left ventricle systolic function is low normal. The Ejection Fraction is 50%. There is global hypokinesis of the left ventricle. RV Systolic function is mildly reduced. There is mild mitral valve stenosis with a maximum pressure gradient of 18 mmHg and mean pressure gradient of 4-7 mmHg. Doppler and Color Flow revealed mild tricuspid regurgitation. There is moderate pulmonary hypertension. The PA pressure was estimated at 58 mmHg. DATE: 11/14/18 1225 <Conclusion> The left ventricular systolic function is normal. The Ejection Fraction is 55%. There is normal LV segmental wall motion. Trace tricuspid regurgitation with an estimated PAP of 46 mmHg. There is no evidence of significant pericardial effusion. DATE: 07/26/18 1108 ASSESSMENT/PLAN ASSESSMENT/PLAN 1. Chest pain: mixed features, subtle changes to EKG infero septal region, trops nml so far. 2. Acute on chronic diastolic CHF 3. Mild Mitral stenosis 4. ESRD 5. HTN: labile 6. Hx of spina bifida/paraplegia/Arnold-Chiari syndrome/seizure 7. Obesity Recommendations 1. Given his cardiac risk factors, ischemic workup will be considered. MPI vs LHC, will discuss with primary director graphics. 2. lipid panel. ASA. Restart home BP meds. 3. Fluid off loading per HD 4. Start on PPI. KARISHMA LAU MD 11/14/18 1618: CARDIAC CONSULT ASSESSMENT/PLAN ASSESSMENT/PLAN Patient seen and examined. Agree with TABLE MACHINE OPERATOR's assessment and plan. Chest pain with atypical features, reproducible to palpation and most probably musculoskeletal Myocardial infarction has been ruled out 2-D echo showed LVEF 50% Continue fluid removal with hemodialysis for acute on chronic diastolic heart failure We will consider ischemic workup with stress test as an outpatient Thank you for your consultation UZIEL CARRANZA APRN Nov 14, 2018 13:57 KARISHMA LAU MD Nov 14, 2018 16:18
--- NOTE | 2018-11-14 14:22 | EKG ---
[facility] [address] [place] [address] Test Date: 2018-11-14 Test Time: 14:15:13 Pat Name: EDWARD DOOLEY Department: Room: 201 1 Gender: M Firer [place]ost Kil[place]: ASHVIN : 1955 Requested By: UZIEL CARRANZA Order Number: [id number] Reading MD: Jarvis Nixon MD Measurements Intervals Bearden Rate: 69 P: 38 VA: 180 QRS: 13 QRSD: 98 T: 24 QT: 442 QTc: 475 Interpretive Statements SINUS RHYTHM NON-SPECIFIC ST/T CHANGES Electronically Signed On 11-16-2018 14:41:30 CDT by Jarvis Nixon MD
[2018-11-14 14:23] LABS: CHOLESTEROL/HDL RATIO 4.4
[2018-11-14] MEDS ORDERED: CLON0.3T TD (16:12)
[2018-11-14] MEDS ORDERED: CETI10TA22 PO (16:12)
[2018-11-14] MEDS ORDERED: LOPE2CAP PO (16:12)
[2018-11-14] MEDS ORDERED: PANT20TA2 PO (16:12)
[2018-11-14] MEDS ORDERED: MECL12.52 PO (16:12)
[2018-11-14] MEDS: ONDANSETRON PF 4 MG/2 ML VIAL. IV PRN (18:37)
[2018-11-14 19:00] VITALS: BP 160/86
[2018-11-14] MEDS ORDERED: amLODIPine BESYLATE 10 MG TABLET PO ONE (19:00)
[2018-11-14] MEDS ORDERED: METHYLNALTREXONE 12 MG/0.6 ML VIAL. SQ ONE (19:00)
[2018-11-14] MEDS: CALCIUM ACETATE 667 MG CAPSULE PO SCH (19:18)
[2018-11-14] MEDS: clonazePAM 0.5 MG TABLET PO SCH (21:23)
[2018-11-14] MEDS: POLYETHYLENE GLYCOL 3350 17 GM PACKET. PO SCH (21:23)
[2018-11-14] MEDS: traZODone 100 MG TABLET. PO SCH (21:23)
[2018-11-14 23:00] VITALS: BP 139/76
[2018-11-15 03:00] VITALS: BP 166/88
[2018-11-15] MEDS: ONDANSETRON PF 4 MG/2 ML VIAL. IV PRN ×3 (04:19→23:01)
[2018-11-15] MEDS: ACETAMINOPHEN 325 MG TABLET. PO PRN ×2 (06:04→15:27)
[2018-11-15 07:00] VITALS: BP 179/93
[2018-11-15] MEDS: CALCIUM ACETATE 667 MG CAPSULE PO SCH ×3 (08:21→17:47)
[2018-11-15] MEDS: POLYETHYLENE GLYCOL 3350 17 GM PACKET. PO SCH ×2 (08:22→20:50)
[2018-11-15] MEDS: clonazePAM 0.5 MG TABLET PO SCH ×2 (08:22→20:50)
[2018-11-15] MEDS ORDERED: CALC667T4 PO (08:28)
[2018-11-15] MEDS ORDERED: CALCIUM ACETATE 667 MG CAPSULE PO ONE (08:30)
[2018-11-15] MEDS ORDERED: NITROGLYCERIN SUBLINGUAL 0.4 MG BOTTLE OF 25. SL PRN (09:15)
[2018-11-15] MEDS ORDERED: MECLIZINE HCL 12.5 MG TABLET. PO PRN (09:45)
[2018-11-15] MEDS: amLODIPine BESYLATE 10 MG TABLET PO SCH (09:48)
--- NOTE | 2018-11-15 09:59 | HP ---
ADMIT DATE: HISTORY OF PRESENT ILLNESS: The patient is a 63-year-old male patient, a resident at [facility], who apparently was at his scheduled hemodialysis yesterday when he started complaining of retrosternal chest pain, abdominal pain and low back pain. He was transferred to the Emergency Room of [facility], where he was evaluated, has had his first set of cardiac enzymes that showed troponin to be slightly elevated at 0.04. His BNP was high at 35,000 and was admitted to do 2 more sets of cardiac enzyme, consult the Cardiology and Nephrology. The patient is known to have opioid-induced constipation, was admitted here on numerous occasions for treatment of his severe obstipation. PAST MEDICAL HISTORY: Significant for hypertension; end-stage renal disease, on hemodialysis on Tuesday, Tuesday, and Tuesday. He has spina bifida cystica with paraplegia and Arnold-Chiari syndrome, seizure disorder, chronic pain syndrome, hyperlipidemia, hypothyroidism, iron deficiency anemia, anxiety and depression, as well as opioid-induced constipation. PAST SURGICAL HISTORY: Significant for appendectomy, cholecystectomy, suprapubic catheter placement, nephrectomy, ureterostomy, ileal conduit, and incisional hernia repair. ALLERGIES: He is ALLERGIC to AMOXICILLIN, GABAPENTIN, LYRICA, and SULFA DRUGS. FAMILY HISTORY: Positive for CVA in his mother. SOCIAL HISTORY: He is single, never , has no children. He is an ex-smoker, does not smoke anymore, does not drink alcohol or recreational drugs. He has been residing at [facility] for a year now. REVIEW OF SYSTEMS: As per history of present illness. MEDICATIONS: He is currently on following medications: He is currently on cetirizine for Zyrtec 10 mg once a day, clonidine 0.3 mg transdermal patch daily, nitroglycerin 0.4 mg sublingually every 5 minutes, amlodipine besylate 10 mg once a day, oxycodone for OxyContin 10 mg twice a day, Tylenol 650 mg every 6 hours, clonazepam 0.5 mg twice a day, duloxetine for Cymbalta 60 mg twice a day, sertraline for Zoloft 200 mg daily, trazodone 100 mg at bedtime, calcium carbonate 1000 mg at bedtime, calcium acetate 667 mg 3 tablets 3 times a day with meals. He is on Systane 1 drop to both eyes 4 times a day, loperamide 2 mg every 4 hours, bisacodyl 5 mg tablet daily, docusate sodium 100 mg twice a day, MiraLax 17 grams twice a day, meclizine 12.5 mg once a day, Protonix 40 mg once a day, metoclopramide 5 mg 3 times a day with meals, levothyroxine sodium 75 mcg once a day and Nephro-Dangelo 1 tablet once a day. PHYSICAL EXAMINATION: GENERAL: On arrival to the Emergency Room, he looked well and was clearly in no apparent respiratory distress. He was pale, but no jaundice, cyanosis, or thyromegaly. No jugular venous distension. No limb edema. VITAL SIGNS: His heart rate was 62, blood pressure was 162/86, temperature was 98.7, respiratory rate was 20, and oxygen saturation was 94%. HEAD, EYES, EARS, NOSE AND THROAT: Showed normocephalic, atraumatic. NECK: Supple. HEART: Showed normal first and second heart sounds. No gallop, rub or murmur. CHEST: Clear to auscultation. No crepitation or rhonchi. ABDOMEN: Distended, soft, nontender. There is no guarding or rigidity. No organomegaly. All hernial orifices intact. Bowel sounds are sluggish. NEUROLOGIC: He is very hard of hearing, but otherwise all cranial nerves intact. EXTREMITIES: He moves upper extremities without difficulty, he has paraplegia. He is mostly bed-bound, wheelchair bound. LABORATORY DATA: His lab work on arrival showed a white cell count 4500; hemoglobin 12; hematocrit 36; MCV 98 and platelet count of 150,000 with normal manual differential. His chemistry showed a serum sodium 138, potassium 4, chloride 98, bicarbonate 31, anion gap of 9, BUN 54, creatinine 5.2, estimated GFR was 11 mL per minute. His glucose 107, calcium was 8.1. Total bilirubin, AST, ALT, alkaline phosphatase were normal. Total protein was 6.5, albumin was 3.3. He has had a chest x-ray, which showed stable cardiomegaly, mild lingular atelectasis or scarring, the right lung is clear. There is no pneumothorax, no pleural effusion is appreciated. Left shoulder arthroplasty, degenerative arthropathy of the right shoulder. His first set of cardiac enzymes show troponin to be 0.040 and BNP was extremely high at 35,000. His lipid profile showed that his triglycerides were 158, total cholesterol 144, LDL was 79, VLDL was 32, HDL was 33 and the ratio was 4.4. ASSESSMENT AND PLAN: The patient was admitted to do 2 more sets of cardiac enzyme, to consult the Cardiology Team as well Nephrology, to continue with hemodialysis. He is known to have chronic opioid-induced constipation. We will resume all his laxatives and stimulant and I will arrange a KUB and await the evaluation by the presiding judge for final decision. WAYLON CONCEPCION MD DR: ADDIE/joe JOB#: [id number] / [id number]
[2018-11-15 11:00] VITALS: BP 190/48
--- NOTE | 2018-11-15 11:03 | RAD ---
Lumbar spine, 3 views, 11/15/2018: HISTORY: Back pain, spina bifida No fracture or dislocation is identified. There is a moderate left convexity thoracolumbar scoliosis. There is a defect in the posterior elements at the lumbosacral junction compatible with the history of spina bifida. Anterior angulation of the lower sacrum and coccyx is compatible with old trauma. No recent fracture or subluxation is evident. There are bilateral chronic hip dislocations. Aortic calcific plaquing is present. IMPRESSION: 1. Moderate thoracolumbar scoliosis. 2. Spina bifida at the lumbosacral junction. 3. Chronic bilateral hip dislocations. 4. No acute bony abnormality is detected. Electronically signed by: Eligio Little MD (11/15/2018 10:59 AM) [facility]
[2018-11-15] MEDS: CETIRIZINE HCL 10 MG TABLET. PO SCH (11:07)
[2018-11-15] MEDS: oxyCODONE ER 10 MG TAB.ER.12H PO SCH ×2 (11:08→20:52)
[2018-11-15] MEDS: LEVOTHYROXINE 75 MCG TABLET PO SCH (11:08)
[2018-11-15] MEDS: cloNIDine HCL 0.3 MG TABLET PO SCH (11:08)
[2018-11-15] MEDS: BISACODYL 5 MG TABLET.DR. PO SCH (11:08)
[2018-11-15] MEDS: PANTOPRAZOLE 40 MG TABLET.DR. PO SCH (11:09)
[2018-11-15] MEDS: DULoxetine HCL 30 MG CAPSULE.DR PO SCH ×2 (11:09→20:50)
[2018-11-15] MEDS: SERTRALINE 50 MG TABLET. PO SCH (11:09)
[2018-11-15] MEDS: DOCUSATE SODIUM 100 MG CAPSULE. PO SCH ×2 (11:09→20:52)
[2018-11-15] MEDS: FOLIC/VIT B COMP W-C (RENAL) TABLET. PO SCH (11:13)
[2018-11-15] MEDS ORDERED: ACETAMINOPHEN 325 MG TABLET. PO PRN (12:00)
--- NOTE | 2018-11-15 12:17 | NUR ---
SS following for discharge planning. SS received notification that pt was a resident at [facility]. SS contacted [facility], ; fax [phone], to verify pt's previous placement. [facility] confirmed that pt is a LTC resident from there facility and was able to return when medically stable for discharge. SS will continue to follow for discharge planning.
[2018-11-15] MEDS: METOCLOPRAMIDE 10 MG TABLET. PO SCH ×2 (13:04→17:48)
[2018-11-15] MEDS: POLYVINYL ALCOHOL 1.4% OPHTH SOLUTION 15ML BOTTLE. OU SCH ×3 (13:32→20:49)
--- NOTE | 2018-11-15 13:52 | PDOC ---
Renal-Progress Notes Subjective Notes Notes FEELS WELL History of Present Illness Hx of present illness STABLE Vitals Vitals Vital Signs Date Time Temp Pulse Resp B/P (MAP) Pulse Ox O2 Delivery O2 Flow Rate FiO2 11/15/18 11:08 83 190/105 11/15/18 11:00 98.6 18 97 98.6 11/15/18 08:00 Nasal Cannula 2.0 Weight Weight [ ] I.O. Intake and Output Intake and Output 11/15/18 07:00 Intake Total 120 ml Balance 120 ml Intake Oral 120 ml # Bowel Movements 1 Labs Labs Laboratory Tests Test 11/14/18 14:28 11/14/18 17:30 Troponin I Quantitative 0.026 ng/mL (0.000-0.055) 0.040 ng/mL (0.000-0.055) Review of Systems Constitutional: yes: alert, oriented Ears/Nose/Throat: Yes: no symptom reported Eyes: Yes: no symptom reported Pulmonary: Yes no symptom reported Cardiovascular: Yes no symptom reported Gastrointestional: Yes: no symptom reported Genitourinary: Yes: no symptom reported Musculoskeletal: Yes: no symptom reported Skin: Yes no symptom reported Psychiatric/Neurological: Yes: no symptom reported Endocrine: Yes: no symptom reported Physical Exam General Appearance: no apparent distress Skin: warm Respiratory: bilateral CTA Heart: S1S2 Abdomen: soft Genitourinary: bladder flat Extremities: pulses present Neurology: alert Musculoskeletal: Other Assessment Assessment IMP CHEST PAIN-AL RULED OUT HTN ANEMIA ESRD PLAN HD TOMORROW ARANESP CARDIOLOGY EVALUATION KELLY CALHOUN MD Nov 15, 2018 13:52
[2018-11-15 15:00] VITALS: BP 171/92
--- NOTE | 2018-11-15 15:05 | RAD ---
EXAM: Abdomen, single view. HISTORY: Pain. COMPARISON: 01/03/2017 FINDINGS: A frontal view of the abdomen is obtained. There are distended air-filled loop bowel within the right lower quadrant and pelvis. No clear transition point is seen. There are surgical clips within the upper abdomen. There is thoracolumbar scoliosis. There is chronic bilateral hip dislocation and deformity of the proximal forearm and acetabuli. There is proximal right femoral fixation instrumentation. IMPRESSION: Distended air-filled bowel within the lower abdomen and pelvis. The differential includes ileus as well as partial distal obstruction. Electronically signed by: Shannan Mishra MD (11/15/2018 3:02 PM) [id number]
[2018-11-15] MEDS: hydrALAZINE 20 MG/ML VIAL. IVP PRN (15:29)
[2018-11-15] MEDS ORDERED: METHYLNALTREXONE 12 MG/0.6 ML VIAL. SQ ONE (16:30)
[2018-11-15 19:00] VITALS: BP 145/82
[2018-11-15] MEDS: CALCIUM CARBONATE 500 MG TABLET PO SCH (20:51)
[2018-11-15] MEDS: traZODone 100 MG TABLET. PO SCH (20:52)
[2018-11-15] MEDS ORDERED: NON FORMULARY ITEM (Polyethylene Glycol 3350 (Miralax) 1 PACKET) PO SCH (21:00)
[2018-11-15 23:00] VITALS: BP 140/83
--- NOTE | 2018-11-16 01:53 | PN ---
DATE: 11/15/2018 SUBJECTIVE: The patient was admitted yesterday from the dialysis unit with a complaint of chest pain. He was dialyzed only for about an hour. Apparently, he developed retrosternal chest pain, abdominal pain and low back pain, was evaluated in the Emergency Room. His CK was slightly elevated at 0.04 and has had 2 more sets of cardiac enzymes that were not elevated. His BNP was high at 35,000 and the Cardiology team evaluated him and recommended to do a stress test as an outpatient. He continued to complain of abdominal pain and low back pain. He is known to have opioid-induced constipation and was admitted here multiple times for the same problem. PHYSICAL EXAMINATION: GENERAL: When I examined him this morning, he looked well and was clearly in no apparent respiratory distress. No pallor, jaundice, cyanosis, or thyromegaly. No jugular venous distension. No lower limb edema. VITAL SIGNS: His heart rate was 73, blood pressure was 179/93, temperature was 98.4, respiratory rate was 18 and oxygen saturation was 97%. HEAD, EYES, EARS, NOSE AND THROAT: Showed normocephalic, atraumatic. NECK: Supple. HEART: Showed normal first and second heart sounds. No gallop, rub or murmur. CHEST: Clear to auscultation. No crepitation or rhonchi. ABDOMEN: Distended, soft. No guarding or rigidity. No organomegaly. All hernial orifices intact. Bowel sounds sluggish. NEUROLOGIC: He is very hard of hearing. Otherwise, all cranial nerves intact. He moves upper extremities without difficulty. 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 LABORATORY DATA: This morning showed he has 2 more sets of cardiac enzymes that were negative, ruled out myocardial infarction. ASSESSMENT: 1. Chest pain, atypical with negative cardiac enzyme and EKG. Arrangement was made for him to have a stress test as an outpatient. 2. End-stage renal disease on hemodialysis Tuesday, Tuesday, Tuesday. We did consult the Nephrology to see him. 3. Hypertension, hypothyroidism, seizure disorder and severe opioid-induced constipation. PLAN: My plan is to arrange for him to have a KUB and I will decide on further management accordingly. The patient can be transferred up to the floor to tele with the bed. I will also arrange for him to have x-ray of his lumbosacral spine and decide on further management accordingly. WAYLON CONCEPCION MD DR: ADDIE/joe JOB#: [id number] / [id number]
[2018-11-16 02:41] VITALS: BP 133/77
[2018-11-16 04:21] LABS: CALCIUM 8.4 mg/dL (8.5-10.1); CREATININE 8.8 mg/dL (0.7-1.3); GFR 6.2
[2018-11-16 04:31] LABS: POTASSIUM 6.2 mmol/L (3.5-5.1)
[2018-11-16] MEDS: PANTOPRAZOLE 40 MG TABLET.DR. PO SCH (06:12)
[2018-11-16] MEDS: LEVOTHYROXINE 75 MCG TABLET PO SCH (06:12)
[2018-11-16] MEDS ORDERED: IV NORMAL SALINE 1000ML BAG 1,000 ML IV PRN ×2 (07:22)
[2018-11-16] MEDS ORDERED: diphenhydrAMINE 50 MG/ML VIAL IV PRN ×2 (07:30)
[2018-11-16] MEDS ORDERED: DIALYSIS PATIENT. MC PRN (07:30)
--- NOTE | 2018-11-16 08:09 | PDOC2 ---
MARIOKEILY Anais SAAS ARCHITECT 11/16/18 0809: CONSULT Date of Consult Date of Consult DATE: 11/16/18 TIME: 08:02 Reason for Consult Reason for Consult: bowel obstruction Referring Physician Referring Physician: Dr Luo Identification/Chief Complaint Chief Complaint chest pain Source Source: Chart review, Patient History of Present Illness Reason for Visit: Admitted with chest pain. Underwent cardiac evaluation KUB concerning for ileus vs bowel obstruction--known to have chronic opioid induced constipation, hx of multiple abdominal surgeries Reports abdominal pain, no emesis, unsure when last BM was --nursing documentation of 1 yesterday AM Past Medical History Cardiovascular: HTN CENTRAL NERVOUS SYSTEM: Seizure, Other GI: GERD Heme/Onc: Anemia NOS Psych: Other Musculoskeletal: Other Renal/: Chronic renal failure, Other Endocrine: Hypothyroidism, Hyperparathyroidism Past Surgical History Past Surgical History: Appendectomy, Cholecystectomy, Hernia Repair, Other ( nephrectomy, SP cath) Family History Family History: Hypertension, Stroke Social History No ALCOHOL: none Drugs: None Lives: [facility] Current Problem List Problem List Problems Medical Problems: (1) Chest pain Status: Acute (2) Congestive heart failure Status: Acute Current Medications Current Medications Current Medications Furosemide (Lasix) 80 mg 1X ONCE IVP Last administered on 11/14/18at 11:38; Start 11/14/18 at 11:15; Stop 11/14/18 at 11:16; Status DC Aspirin (Children'S Aspirin) 324 mg 1X ONCE PO Last administered on 11/14/18at 11:42; Start 11/14/18 at 11:15; Stop 11/14/18 at 11:16; Status DC Nitroglycerin (Nitro-Bid Oint) 1 inch 1X ONCE TP Last administered on at 11:40; Start 11/14/18 at 11:15; Stop 11/14/18 at 11:16; Status DC Ondansetron HCl (Zofran) 4 mg PRN Q8HRS PRN IV NAUSEA/VOMITING Last administered on 11/15/18at 04:19; Start 11/14/18 at 11:15; Stop 11/15/18 at 11:14 ; Status DC Clonazepam (KlonoPIN) 0.5 mg BID PO Last administered on 11/15/18at 20:50; Start 11/14/18 at 21:00 Trazodone HCl (Desyrel) 100 mg QHS PO Last administered on 11/15/18 20:52; Start 11/14/18 at 21:00 Calcium Acetate (Phoslo) 667 mg TIDWMEALS PO Last administered on 11/15/18 08: 21; Start 11/14/18 at 18:30; Stop 11/15/18 at 08:32; Status DC Hydralazine HCl (Apresoline Inj) 10 mg PRN Q4HRS PRN IVP ELEVATED BP, SEE COMMENTS Last administered on 11/15/18 15:29; Start 11/14/18 at 18:45 Polyethylene Glycol (miraLAX PACKET) 17 gm BID PO Last administered on 20:50; Start 11/14/18 at 21:00 Methylnaltrexone [place] (Relistor) 6 mg 1X ONCE SQ Last administered on 19:18; Start 11/14/18 at 19:00; Stop 11/14/18 at 19:01; Status DC Amlodipine Besylate (Norvasc) 10 mg 1X ONCE PO Last administered on 11/14/18 19:18; Start 11/14/18 at 19:00; Stop 11/14/18 at 19:01; Status DC Acetaminophen (Tylenol) 650 mg PRN Q4HRS PRN PO PAIN Last administered on 15:27; Start 11/15/18 at 05:00 Amlodipine Besylate (Norvasc) 10 mg DAILY PO Last administered on 11/15/18 09: 48; Start 11/15/18 at 09:00 Calcium Acetate (Phoslo) 2,001 mg TIDWMEALS PO Last administered on 11/15/18 17:47; Start 11/15/18 at 12:00 Calcium Acetate (Phoslo) 1,334 mg 1X ONCE PO Last administered on 11/15/18 09 :48; Start 11/15/18 at 08:30; Stop 11/15/18 at 08:33; Status DC Acetaminophen (Tylenol) 650 mg PRN Q6HRS PRN PO HEADACHE / TEMP; Start at 12:00 Amlodipine Besylate (Norvasc) 10 mg DAILY PO ; Start 11/16/18 at 09:00; Status UNV Cetirizine HCl (ZyrTEC) 10 mg DAILY PO Last administered on 11/15/18 11:07; Start 11/15/18 at 10:30 Cetirizine HCl (ZyrTEC) 10 mg DAILY PO ; Start 11/16/18 at 09:00; Status UNV Clonidine HCl (Catapres) 0.3 mg DAILY PO Last administered on 11/15/18 11:08; Start 11/15/18 at 10:30 Docusate Sodium (Colace) 100 mg BID PO Last administered on 11/15/18 20:52; Start 11/15/18 at 10:30 Vitamin B Complex/ Vitamin C (Litzy-Dangelo) 1 tab DAILY PO Last administered on 11:13; Start 11/15/18 at 10:30 Levothyroxine Sodium (Synthroid) 75 mcg DAILY07 PO Last administered on 06:12; Start 11/15/18 at 10:30 Metoclopramide HCl (Reglan) 5 mg TIDWMEALS PO Last administered on 11/15/18 17 :48; Start 11/15/18 at 12:00 Nitroglycerin (Nitrostat) 0.4 mg PRN Q10MIN PRN SL CHEST PAIN; Start 11/15/18 at 09:15 Bisacodyl (Dulcolax Tab) 5 mg DAILY PO Last administered on 11/15/18 11:08; Start 11/15/18 at 10:30 Calcium Carbonate/ Glycine (Oscal) 1,000 mg QHS PO Last administered on 20:51; Start 11/15/18 at 21:00 Duloxetine HCl (Cymbalta) 60 mg BID PO Last administered on 11/15/18 20:50; Start 11/15/18 at 10:30 Meclizine HCl (Antivert) 12.5 mg PRN Q8HRS PRN PO DIZZINESS; Start 11/15/18 at 09:45 Oxycodone HCl (OxyCONTIN) 10 mg Q12HR PO Last administered on 11/15/18 20:52; Start 11/15/18 at 10:30 Pantoprazole Sodium (Protonix) 40 mg DAILYAC PO Last administered on 11/16/18 06:12; Start 11/15/18 at 10:30 Non-Formulary Medication (Polyethylene Glycol 3350 (Miralax)) 1 packet BID PO ; Start 11/15/18 at 21:00; Status UNV Artificial Tears (Artificial Tears) 1 drop QID OU Last administered on at 20:49; Start 11/15/18 at 13:00 Sertraline HCl (Zoloft) 200 mg DAILY PO Last administered on 11/15/18at 11:09; Start 11/15/18 at 10:30 Ondansetron HCl (Zofran) 4 mg PRN Q8HRS PRN IV NAUSEA/VOMITING Last administered on 11/15/18at 23:01; Start 11/15/18 at 15:15 Methylnaltrexone [place] (Relistor) 12 mg 1X ONCE SQ Last administered on 11/15at 17:49; Start 11/15/18 at 16:30; Stop 11/15/18 at 16:31; Status DC Sodium Chloride 1,000 ml @ 1,000 mls/hr Q1H PRN IV hypotension; Start 11/16/18 at 07:22; Stop 11/16/18 at 13:21 Diphenhydramine HCl (Benadryl) 25 mg 1X PRN PRN IV ITCHING; Start 11/16/18 at 07:30; Stop 11/17/18 at 07:29 Diphenhydramine HCl (Benadryl) 25 mg 1X PRN PRN IV ITCHING; Start 11/16/18 at 07:30; Stop 11/17/18 at 07:29 Sodium Chloride 1,000 ml @ 400 mls/hr Q2H30M PRN IV PATENCY; Start 11/16/18 at 07:22; Stop 11/16/18 at 19:21 Info (PHARMACY MONITORING -- do not chart) 1 each PRN DAILY PRN MC SEE COMMENTS ; Start 11/16/18 at 07:30 Active Scripts Active Colace (Docusate Sodium) 100 Mg Capsule 1 Cap PO BID Reported Calcium Acetate 667 Mg Tablet 3 Tab PO TIDWMEALS Clonidine Hcl 0.3 Mg Tablet 0.3 Mg TD DAILY Loperamide (Loperamide Hcl) 2 Mg Capsule 2 Mg PO Q4HRS Meclizine Hcl 12.5 Mg Tablet 12.5 Mg PO Q8HRS PRN Zyrtec (Cetirizine Hcl) 10 Mg Tablet 1 Tab PO DAILY Protonix (Pantoprazole Sodium) 20 Mg Tablet.dr 40 Mg PO DAILY Zyrtec (Cetirizine Hcl) 10 Mg Tablet 1 Tab PO DAILY Cymbalta (Duloxetine Hcl) 60 Mg Capsule.dr 60 Mg PO BID Norvasc (Amlodipine Besylate) 10 Mg Tablet 10 Mg PO DAILY Systane 0.3-0.4% Eye Drops (Propylene Glycol/Peg 400) 15 Ml Drops 1 Drop EACHEYE QID Women's Laxative (Bisacodyl) 5 Mg Tablet 1 Tab PO UD Clonazepam 0.5 Mg Tablet 1 Tab PO BID Oxycontin (Oxycodone HCl) 20 Mg Tab.er.12h 10 Mg PO BID Trazodone Hcl 100 Mg Tablet 1 Tab PO QHS Zoloft (Sertraline Hcl) 100 Mg Tablet 2 Tab PO DAILY Tylenol (Acetaminophen) 325 Mg Tablet 650 Mg PO Q6HRS Reglan (Metoclopramide Hcl) 10 Mg Tablet 5 Mg PO TID Nitrostat (Nitroglycerin) 0.4 Mg Tab.subl 0.4 Mg SL PRN Q10MIN PRN Nephro-Dangelo Tablet (Folic Acid/Vitamin B Comp W-C) 0.8 Mg Tablet 1 Tab PO DAILY Miralax (Polyethylene Glycol 3350) 17 Gm Powd.pack 1 Packet PO BID Levothyroxine Sodium 75 Mcg Tablet 1 Tab PO DAILY Calcium Carbonate 650 Mg Tablet 1,000 Mg PO QHS Allergies Allergies: Coded Allergies: Sulfa (Sulfonamide Antibiotics) (Verified Allergy, Intermediate, 03/08/16) amoxicillin (Verified Allergy, Intermediate, 03/08/16) gabapentin (Verified Allergy, Intermediate, 03/08/16) pregabalin (Verified Allergy, Intermediate, 03/08/16) I S O L A T I O N *CONTACT* (Verified Allergy, Unknown, 11/16/18) mrsa ROS General: No: Chills, Other (fevers ) PSYCHOLOGICAL ROS: YES: Anxiety, Depression Eyes: No Blurry vision, No Double vision HEENT: No: Heacaches, Sore Throat Hematological and Lymphatic: No: Bleeding Problems, Blood Clots Respiratory: YES: Shortness of breath; No: Cough Cardiovascular: yes Chest Pain; No Palpitations Gastrointestinal: Yes Other (see hpi) Genitourinary: No Dysuria, No Retention Musculoskeletal: Yes Muscle Pain, Yes Muscular Weakness Neurological: No Bowel/Bladder ControlChng, No Numbness/Tingling Skin: No Pruritus, No Rash Physical Exam General: Alert, Oriented X3, Cooperative, No acute distress HEENT: PERRLA, Mucous membr. moist/pink Lungs: Clear to auscultation, Normal air movement Heart: Regular rate, Normal S1, Normal S2 Abdomen: Soft, Other (ND, NTTP) Extremities: No clubbing, No cyanosis Skin: No rashes, No breakdown Psych/Mental Status: Mental status NL, Mood NL MUSCULOSKELETAL: No deformity, No swelling Vitals VITALS Vital Signs Date Time Temp Pulse Resp B/P (MAP) Pulse Ox O2 Delivery O2 Flow Rate FiO2 11/16/18 02:41 60 19 133/77 (95) 94 Nasal Cannula 2.0 11/15/18 23:00 97.8 97.8 Labs Labs Laboratory Tests Test 11/14/18 09:35 11/14/18 14:28 11/14/18 17:30 11/14/18 20:10 White Blood Count 4.5 x10^3/uL (4.0-11.0) Red Blood Count 3.67 x10^6/uL (4.30-5.70) Hemoglobin 11.9 g/dL (13.0-17.5) Hematocrit 35.8 % (39.0-53.0) Mean Corpuscular Volume 98 fL (79-100) Mean Corpuscular Hemoglobin 33 pg (25-35) Mean Corpuscular Hemoglobin Concent 33 g/dL (31-37) Red Cell Distribution Width 14.8 % (11.5-14.5) Platelet Count 150 x10^3/uL (140-400) Neutrophils (%) (Auto) 80 % (31-73) Lymphocytes (%) (Auto) 10 % (24-48) Monocytes (%) (Auto) 7 % (0-9) Eosinophils (%) (Auto) 2 % (0-3) Basophils (%) (Auto) 1 % (0-3) Neutrophils # (Auto) 3.6 x10^3uL (1.8-7.7) Lymphocytes # (Auto) 0.5 x10^3/uL (1.0-4.8) Monocytes # (Auto) 0.3 x10^3/uL (0.0-1.1) Eosinophils # (Auto) 0.1 x10^3/uL (0.0-0.7) Basophils # (Auto) 0.0 x10^3/uL (0.0-0.2) Sodium Level 138 mmol/L (136-145) Potassium Level 4.0 mmol/L (3.5-5.1) Chloride Level 98 mmol/L (98-107) Carbon Dioxide Level 31 mmol/L (21-32) Anion Gap 9 (6-14) Blood Urea Nitrogen 54 mg/dL (8-26) Creatinine 5.2 mg/dL (0.7-1.3) Estimated GFR (Cockcroft-Gault) 11.3 BUN/Creatinine Ratio 10 (6-20) Glucose Level 107 mg/dL (70-99) Calcium Level 8.1 mg/dL (8.5-10.1) Total Bilirubin 0.7 mg/dL (0.2-1.0) Aspartate Amino Transf (AST/SGOT) 9 U/L (15-37) Alanine Aminotransferase (ALT/SGPT) 15 U/L (16-63) Alkaline Phosphatase 70 U/L (46-116) Troponin I Quantitative 0.040 ng/mL (0.000-0.055) 0.026 ng/mL (0.000-0.055) 0.040 ng/mL (0.000-0.055) AR-Gqv-F-Type Natriuretic Peptide > 40089 pg/mL (0-124) Total Protein 6.5 g/dL (6.4-8.2) Albumin 3.3 g/dL (3.4-5.0) Albumin/Globulin Ratio 1.0 (1.0-1.7) Triglycerides Level 158 mg/dL (0-150) Cholesterol Level 144 mg/dL (0-200) LDL Cholesterol, Calculated 79 mg/dL (0-100) VLDL Cholesterol, Calculated 32 mg/dL (0-40) Non-HDL Cholesterol Calculated 111 mg/dL (0-129) HDL Cholesterol 33 mg/dL (40-60) Cholesterol/HDL Ratio 4.4 Nasal Screen MRSA (PCR) Positive (Negative) Test 11/16/18 03:30 Sodium Level 136 mmol/L (136-145) Potassium Level 6.2 mmol/L (3.5-5.1) Chloride Level 97 mmol/L (98-107) Carbon Dioxide Level 24 mmol/L (21-32) Anion Gap 15 (6-14) Blood Urea Nitrogen 99 mg/dL (8-26) Creatinine 8.8 mg/dL (0.7-1.3) Estimated GFR (Cockcroft-Gault) 6.2 Glucose Level 84 mg/dL (70-99) Calcium Level 8.4 mg/dL (8.5-10.1) Thyroid Stimulating Hormone (TSH) 2.968 uIU/mL (0.358-3.74) Laboratory Tests Test 11/16/18 03:30 Sodium Level 136 mmol/L (136-145) Potassium Level 6.2 mmol/L (3.5-5.1) Chloride Level 97 mmol/L (98-107) Carbon Dioxide Level 24 mmol/L (21-32) Anion Gap 15 (6-14) Blood Urea Nitrogen 99 mg/dL (8-26) Creatinine 8.8 mg/dL (0.7-1.3) Estimated GFR (Cockcroft-Gault) 6.2 Glucose Level 84 mg/dL (70-99) Calcium Level 8.4 mg/dL (8.5-10.1) Thyroid Stimulating Hormone (TSH) 2.968 uIU/mL (0.358-3.74) Assessment/Plan Assessment/Plan Chest pain, abdominal pain ESRD, HD chronic constipation will check abdominal films--if still concerning for obstructive process--CT abd/ pelvis RICHARD CHOI MD 11/17/18 0916: CONSULT Assessment/Plan Assessment/Plan was by to see Mr Del Cid he was out of his room will follow up X rays will follow with you Thanks for consult KEILY MARTIN APRN Nov 16, 2018 08:09 RICHARD CHOI MD Nov 17, 2018 09:16
[2018-11-16] MEDS ORDERED: CETIRIZINE HCL 10 MG TABLET. PO SCH (09:00)
[2018-11-16] MEDS ORDERED: amLODIPine BESYLATE 10 MG TABLET PO SCH (09:00)
--- NOTE | 2018-11-16 09:40 | NUR ---
IP: Pt is mrsa screen + requiring contact precautions.
--- NOTE | 2018-11-16 10:14 | PDOC2 ---
GI CONSULT Reason For Consult: Constipation, dysphagia HPI: HPI: 63 y/o male who was a bit drowsy when I saw him during dialysis this morning. Admitted 11/14 w/ chest pain. GI-watt, has a h/o chronic abd pain (says KENNEDY) and spinal/narcotic-induced constipation (OxyContin, oxycodone) and concern for SBO in the past. KUB this time notes distended air-filled bowel within the lower abdomen and pelvis ( ileus vs partial obstruction). Surgery following - plans to repeat abx x-ray and consider CT. We have seen in the past - improved w/ Linzess and Relistor then. He tells me he currently takes Colace (ordered here), Miralax (ordered here), and Linzess ( not ordered) - indicates only take Relistor when in the hospital (received yesterday). He thinks he had a stool yesterday but can't really remember. He denies significant reflux (on PPI here). No n/v. I asked about appetite - he says "I don't have any teeth." Denies bleeding. Reports past EGD and colonoscopy in [place] <10 year ago. RN reports some apparent issues w/ dysphagia yesterday - says he was laying flat in bed trying to eat. He tells me he feels dysphagia (mostly solids) is related to not having any teeth. Per HEADRIG SAWYER note, h/o esophageal dilation. S/p cholecystectomy. After I saw, reviewed past CT reports - they note colo-colonic anastomosis in region of transverse colon, postsurgical changes noted at the GE junction, small hiatal hernia, and postsurgical changes in small bowel loops. PMH: PMH: HTN, CHF, mitral stenosis, ESRD on HD, spina bifida w/ paraplegia, seizure disorder, chronic pain syndrome, HLD, hypothyroidism, anxiety, depression appendectomy, cholecystectomy, left nephrectomy, incisional hernia repair, bladder surgery/ileal conduit FH: Family History: No pertinent hx Social History: Smoke: No ALCOHOL: none Drugs: None ROS: GEN: Denies fevers, chills, sweats HEENT: Denies blurred vision, sore throat CV: +chest pain RESP: Denies shortness of air, cough GI: Per HPI : Denies hematuria, dysuria ENDO: Denies weight changes NEURO: Denies confusion, dizziness MSK: +weakness SKIN: Denies jaundice, pruritus Vitals: Vitals: Vital Signs Date Time Temp Pulse Resp B/P (MAP) Pulse Ox O2 Delivery O2 Flow Rate FiO2 11/16/18 02:41 60 19 133/77 (95) 94 Nasal Cannula 2.0 11/15/18 23:00 97.8 97.8 Labs: Labs: Laboratory Tests Test 11/16/18 03:30 Sodium Level 136 mmol/L (136-145) Potassium Level 6.2 mmol/L (3.5-5.1) Chloride Level 97 mmol/L (98-107) Carbon Dioxide Level 24 mmol/L (21-32) Anion Gap 15 (6-14) Blood Urea Nitrogen 99 mg/dL (8-26) Creatinine 8.8 mg/dL (0.7-1.3) Estimated GFR (Cockcroft-Gault) 6.2 Glucose Level 84 mg/dL (70-99) Calcium Level 8.4 mg/dL (8.5-10.1) Thyroid Stimulating Hormone (TSH) 2.968 uIU/mL (0.358-3.74) Allergies: Coded Allergies: Sulfa (Sulfonamide Antibiotics) (Verified Allergy, Intermediate, 03/08/16) amoxicillin (Verified Allergy, Intermediate, 03/08/16) gabapentin (Verified Allergy, Intermediate, 03/08/16) pregabalin (Verified Allergy, Intermediate, 03/08/16) I S O L A T I O N *CONTACT* (Verified Allergy, Unknown, 11/16/18) mrsa Medications: Current Medications Medications (Trade) Dose Ordered Sig/Pema Route PRN Reason Start Time Stop Time Status Last Admin Dose Admin Calcium Acetate (Phoslo) 2,001 mg TIDWMEALS PO 11/15/18 12:00 11/15/18 17:47 Cetirizine HCl (ZyrTEC) 10 mg DAILY PO 11/15/18 10:30 11/15/18 11:07 Clonidine HCl (Catapres) 0.3 mg DAILY PO 11/15/18 10:30 11/15/18 11:08 Docusate Sodium (Colace) 100 mg BID PO 11/15/18 10:30 11/15/18 20:52 Vitamin B Complex/ Vitamin C (Litzy-Dangelo) 1 tab DAILY PO 11/15/18 10:30 11/15/18 11:13 Levothyroxine Sodium (Synthroid) 75 mcg DAILY07 PO 11/15/18 10:30 11/16/18 06:12 Metoclopramide HCl (Reglan) 5 mg TIDWMEALS PO 11/15/18 12:00 11/15/18 17:48 Bisacodyl (Dulcolax Tab) 5 mg DAILY PO 11/15/18 10:30 11/15/18 11:08 Calcium Carbonate/ Glycine (Oscal) 1,000 mg QHS PO 11/15/18 21:00 11/15/18 20:51 Duloxetine HCl (Cymbalta) 60 mg BID PO 11/15/18 10:30 11/15/18 20:50 Oxycodone HCl (OxyCONTIN) 10 mg Q12HR PO 11/15/18 10:30 11/15/18 20:52 Pantoprazole Sodium (Protonix) 40 mg DAILYAC PO 11/15/18 10:30 11/16/18 06:12 Artificial Tears (Artificial Tears) 1 drop QID OU 11/15/18 13:00 11/15/18 20:49 Sertraline HCl (Zoloft) 200 mg DAILY PO 11/15/18 10:30 11/15/18 11:09 Ondansetron HCl (Zofran) 4 mg PRN Q8HRS PRN IV NAUSEA/VOMITING 11/15/18 15:15 11/15/18 23:01 Methylnaltrexone [place] (Relistor) 12 mg 1X ONCE SQ 11/15/18 16:30 11/15/18 16:31 DC 11/15/18 17:49 Imaging: Imaging: CXR 11/14 IMPRESSION: 1. Mild lingular atelectasis or scarring. 2. Stable cardiomegaly. KUB 11/15 IMPRESSION: Distended air-filled bowel within the lower abdomen and pelvis. The differential includes ileus as well as partial distal obstruction. L-spine X-Ray 11/15 IMPRESSION: 1. Moderate thoracolumbar scoliosis. 2. Spina bifida at the lumbosacral junction. 3. Chronic bilateral hip dislocations. 4. No acute bony abnormality is detected. HEADRIG SAWYER HEADRIG SAWYER Bedside Swallow Eval Bedside swallow eval completed. Pt w/ c/o difficulty swallowing. He stated he feels his throat is narrow and acknowledged increased difficulty w/solids. Adding to this, pt is edentulous and unable to completely masticate solids. He indicated he has consulted a dentist and planned to receive his dentures end of this month but then became hospitalized. Upon further questioning, pt recalled seeing a GI physician in [place] "years ago" and having his "esophagus stretched , probably 10 years ago." He thinks current s/s are similar. IMPRESSIONS: Functional oropharyngeal swallow. Intake of solids confounded by edentulous status. Pt reportedly has consulted a dentist and should be receiving his dentures soon. May benefit from modified diet until dentures available. Pt indicated he's working w/dietitian on diet modifications (ground meat). S/s esophageal dysphagia based on current pt c/o and hx. Would benefit from GI consult to det. 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 RECOMMENDATIONS: 1. Refer to GI re:hx of esophageal dilation in pt currently c/ o similar. 2. Mech soft diet w/ground meat, thin liquids. 3. Meds as rex. May need to crush in puree if esophageal s/s occur w/taking pills. No additional HEADRIG SAWYER f/u indicated at this time. Results d/w pt and LINDSAY Gracia. PE: GEN: dialyzing - was asleep HEENT: Atraumatic, PERRL LUNGS: diminished HEART: RRR +murm ABD: occasional gurgle, some distention, vague discomfort LLQ region EXTREMITY: No edema SKIN: No rashes, no jaundice NEURO/PSYCH: A & O 3 A/P: A/P: Dysphagia - varying history, h/o esophageal dilation, also edentulous Chronic abd pain and constipation - spinal/narcotic-induced, improved w/ Linzess and Relistor in the past Ileus vs partial obstruction ?GERD CRC screen - <10 years ago in [place] S/p cholecystectomy -- Await x-ray. Will review constipation meds pending this. Agree w/ PPI and diet per HEADRIG SAWYER. ?EGD Will attempt to better review surgical history later. CLAUDIA FERRARI Nov 16, 2018 10:14
--- NOTE | 2018-11-16 11:38 | PDOC ---
Renal-Progress Notes Subjective Notes Notes NO NEW COMPLAINTS History of Present Illness Hx of present illness SAME Vitals Vitals Vital Signs Date Time Temp Pulse Resp B/P (MAP) Pulse Ox O2 Delivery O2 Flow Rate FiO2 11/16/18 02:41 60 19 133/77 (95) 94 Nasal Cannula 2.0 11/15/18 23:00 97.8 97.8 Weight Weight [ ] I.O. Intake and Output Intake and Output 11/16/18 07:00 Intake Total 870 ml Output Total 0 ml Balance 870 ml Intake Oral 870 ml Output Urine Total 0 ml Labs Labs Laboratory Tests Test 11/16/18 03:30 Sodium Level 136 mmol/L (136-145) Potassium Level 6.2 mmol/L (3.5-5.1) Chloride Level 97 mmol/L (98-107) Carbon Dioxide Level 24 mmol/L (21-32) Anion Gap 15 (6-14) Blood Urea Nitrogen 99 mg/dL (8-26) Creatinine 8.8 mg/dL (0.7-1.3) Estimated GFR (Cockcroft-Gault) 6.2 Glucose Level 84 mg/dL (70-99) Calcium Level 8.4 mg/dL (8.5-10.1) Thyroid Stimulating Hormone (TSH) 2.968 uIU/mL (0.358-3.74) Review of Systems Constitutional: yes: alert, oriented Ears/Nose/Throat: Yes: no symptom reported Eyes: Yes: no symptom reported Pulmonary: Yes no symptom reported Cardiovascular: Yes no symptom reported Gastrointestional: Yes: no symptom reported Genitourinary: Yes: no symptom reported Musculoskeletal: Yes: no symptom reported Skin: Yes no symptom reported Psychiatric/Neurological: Yes: no symptom reported Endocrine: Yes: no symptom reported Physical Exam General Appearance: no apparent distress Skin: warm Respiratory: bilateral CTA Heart: S1S2 Abdomen: soft Genitourinary: bladder flat Extremities: pulses present Neurology: alert Musculoskeletal: Other Assessment Assessment IMP CHEST PAIN-PA RULED OUT HTN ANEMIA ESRD PLAN HD TODAY UF TO [facility] CARDIOLOGY EVALUATION KELLY CAHLOUN MD Nov 16, 2018 11:37
[2018-11-16] MEDS: POLYVINYL ALCOHOL 1.4% OPHTH SOLUTION 15ML BOTTLE. OU SCH ×4 (11:43→20:49)
[2018-11-16] MEDS: POLYETHYLENE GLYCOL 3350 17 GM PACKET. PO SCH ×2 (11:44→20:49)
[2018-11-16] MEDS: DOCUSATE SODIUM 100 MG CAPSULE. PO SCH ×2 (11:46→20:49)
[2018-11-16] MEDS: clonazePAM 0.5 MG TABLET PO SCH ×2 (11:46→20:49)
[2018-11-16] MEDS: DULoxetine HCL 30 MG CAPSULE.DR PO SCH ×2 (11:46→20:49)
[2018-11-16] MEDS: SERTRALINE 50 MG TABLET. PO SCH (11:46)
[2018-11-16] MEDS: FOLIC/VIT B COMP W-C (RENAL) TABLET. PO SCH (11:47)
[2018-11-16] MEDS: METOCLOPRAMIDE 10 MG TABLET. PO SCH ×3 (11:47→17:56)
[2018-11-16] MEDS: CETIRIZINE HCL 10 MG TABLET. PO SCH (11:48)
[2018-11-16] MEDS: cloNIDine HCL 0.3 MG TABLET PO SCH (11:49)
[2018-11-16] MEDS: BISACODYL 5 MG TABLET.DR. PO SCH (11:50)
[2018-11-16] MEDS: amLODIPine BESYLATE 10 MG TABLET PO SCH (11:50)
[2018-11-16] MEDS: oxyCODONE ER 10 MG TAB.ER.12H PO SCH ×2 (11:51→20:59)
[2018-11-16] MEDS: CALCIUM ACETATE 667 MG CAPSULE PO SCH ×3 (11:52→17:57)
--- NOTE | 2018-11-16 12:11 | NUR ---
Patient went to dialysis this morning just before 0700 & arrived back to unit at 1115. VSS. Patient A&Ox4. R upper arm fistula dressing CDI. Lunch ordered.
--- NOTE | 2018-11-16 15:17 | RAD ---
Acute abdomen series with chest, 3 views, 11/16/2018: HISTORY: Small bowel obstruction Comparison is made to a study from 03/02/2017. Gas and stool is present scattered throughout the colon in a nonspecific pattern. No free air is seen in the abdomen. There are surgical clips in the upper abdomen. No organomegaly is evident. There is a moderate left convexity lumbar scoliosis. There are dysplastic hips with chronic bilateral hip dislocations. An internal fixation device is present in the proximal right femur. The heart is within normal limits in size for the AP technique. The pulmonary vascularity is normal. There is minimal lingular scarring or atelectasis which is unchanged since 11/14/2018. No new pulmonary abnormality is seen. There is no evidence of pleural fluid. A left shoulder prosthesis is in place. IMPRESSION: 1. Chronic findings as described above. 2. No acute abdominal abnormality is detected. Electronically signed by: Eligio Little MD (11/16/2018 3:14 PM) [facility]
[2018-11-16 15:56] VITALS: BP 144/75
[2018-11-16 19:15] VITALS: BP 152/80
[2018-11-16 20:07] LABS: CALCIUM 8.9 mg/dL (8.5-10.1); CREATININE 5.6 mg/dL (0.7-1.3); GFR 10.4; POTASSIUM 4.9 mmol/L (3.5-5.1)
[2018-11-16] MEDS: traZODone 100 MG TABLET. PO SCH (20:49)
[2018-11-16] MEDS: CALCIUM CARBONATE 500 MG TABLET PO SCH (20:59)
[2018-11-16 23:44] VITALS: BP 147/77
[2018-11-17] VITALS (7 sets, daily range): BP systolic 116–177; BP diastolic 64–82
--- NOTE | 2018-11-17 01:19 | PN ---
DATE: 11/16/2018 SUBJECTIVE: The patient is resting, slightly propped up and sleeping comfortably why he is having his scheduled hemodialysis. The nursing staff stated that he did have large bowel movement after he received the Relistor, though the patient himself denied that. He continued also complaining of dysphagia, difficulty swallowing. PHYSICAL EXAMINATION: GENERAL: When I examined him, he looked pale, but no jaundice, cyanosis, or thyromegaly. No jugular venous distention. No lower limb edema. VITAL SIGNS: His heart rate was 60, blood pressure 133/77, temperature was 97.8, respiratory rate was 19 and oxygen saturation was 94% on 2 liters of oxygen. HEAD, EYES, EARS, NOSE AND THROAT: Showed normocephalic, atraumatic. NECK: Supple. HEART: Showed normal first and second heart sounds. No gallop, rub or murmur. CHEST: Clear to auscultation. No crepitation or rhonchi. ABDOMEN: Distended, definitely softer today. No guarding or rigidity. No organomegaly. All hernial orifice intact. Bowel sounds normal. NEUROLOGIC: He was sleepy, but arousable. All cranial nerves intact. He moves upper extremities without difficulty, has paraplegia due to spina bifida cystica. He is mostly bedbound, chair bound. He is completely anuric and hemodialysis dependent. LABORATORY DATA: As of this morning, his serum sodium was 136, potassium 6.2, chloride 97, bicarbonate 24, anion gap of 15, BUN 99, creatinine 8.8, estimated GFR of 6.2 mL per minute, his glucose 84, calcium was 8.4. TSH was normal at 2.968. ASSESSMENT AND PLAN: 1. Chest pain. Had 3 sets of cardiac enzymes, his troponins were within normal range. The Cardiology team recommended ischemic workup as an outpatient. 2. Acute on chronic diastolic congestive heart failure. 3. End-stage renal disease, on hemodialysis. 4. Hypertension. 5. Spina bifida with paraplegia. 6. Arnold-Chiari syndrome and seizure disorder. 7. Obesity. 8. Hypothyroidism. 9. Severe opioid-induced constipation. His KUB yesterday showed that he had distended air-filled bowel within the lower abdomen and pelvis. The differential includes ileus versus partial distal obstruction. According to the nursing staff, he did respond to Wellbutrin. I will repeat his KUB today and decide on further management accordingly. He has also dysphagia for which we did consult the Gastroenterology team as he has I believe required dysphagia dilatation before. WAYLON CONCEPCION MD DR: ADDIE/joe JOB#: [id number] / [id number]
[2018-11-17] MEDS: hydrALAZINE 20 MG/ML VIAL. IVP PRN (03:47)
[2018-11-17] MEDS: CALCIUM ACETATE 667 MG CAPSULE PO SCH ×3 (08:00→16:31)
[2018-11-17] MEDS: METOCLOPRAMIDE 10 MG TABLET. PO SCH ×3 (08:00→16:31)
[2018-11-17] MEDS ORDERED: METHYLNALTREXONE 12 MG/0.6 ML VIAL. SQ ONE (08:45)
--- NOTE | 2018-11-17 09:01 | PDOC ---
KEILY MARTIN DIRECTOR ACCOUNT MANAGEMENT 11/17/18 0901: SURGICAL PROGRESS NOTE Subjective some abdominal pain nausea at times no flatus Vital Signs Vital Signs Date Time Temp Pulse Resp B/P (MAP) Pulse Ox O2 Delivery O2 Flow Rate FiO2 11/17/18 07:30 Nasal Cannula 2.0 11/17/18 07:00 98.4 67 18 161/77 (105) 97 98.4 I&O Intake and Output 11/17/18 07:00 Intake Total 480 ml Balance 480 ml Intake Oral 480 ml General: Alert, Oriented X3, Cooperative, No acute distress Abdomen: Soft, Other (NTTP, ND) Labs Laboratory Tests Test 11/16/18 03:30 11/16/18 19:40 Sodium Level 136 mmol/L (136-145) 138 mmol/L (136-145) Potassium Level 6.2 mmol/L (3.5-5.1) 4.9 mmol/L (3.5-5.1) Chloride Level 97 mmol/L (98-107) 98 mmol/L (98-107) Carbon Dioxide Level 24 mmol/L (21-32) 32 mmol/L (21-32) Anion Gap 15 (6-14) 8 (6-14) Blood Urea Nitrogen 99 mg/dL (8-26) 42 mg/dL (8-26) Creatinine 8.8 mg/dL (0.7-1.3) 5.6 mg/dL (0.7-1.3) Estimated GFR (Cockcroft-Gault) 6.2 10.4 Glucose Level 84 mg/dL (70-99) 132 mg/dL (70-99) Calcium Level 8.4 mg/dL (8.5-10.1) 8.9 mg/dL (8.5-10.1) Thyroid Stimulating Hormone (TSH) 2.968 uIU/mL (0.358-3.74) Laboratory Tests Test 11/16/18 19:40 Sodium Level 138 mmol/L (136-145) Potassium Level 4.9 mmol/L (3.5-5.1) Chloride Level 98 mmol/L (98-107) Carbon Dioxide Level 32 mmol/L (21-32) Anion Gap 8 (6-14) Blood Urea Nitrogen 42 mg/dL (8-26) Creatinine 5.6 mg/dL (0.7-1.3) Estimated GFR (Cockcroft-Gault) 10.4 Glucose Level 132 mg/dL (70-99) Calcium Level 8.9 mg/dL (8.5-10.1) Problem List Problems Medical Problems: (1) Chest pain Status: Acute (2) Congestive heart failure Status: Acute Assessment/Plan xrays stable hx of constipation EGD planned today No surgical plans RICHARD CHOI MD 11/17/18 1240: SURGICAL PROGRESS NOTE Assessment/Plan pt seen, interviewed and examined CT scan reviewed no surgical indication chronic constipation 2/2 medications will sign off please call if needed Thank you KEILY MARTIN APRN Nov 17, 2018 09:01 RICHARD CHOI MD Nov 17, 2018 12:40
--- NOTE | 2018-11-17 09:29 | NUR ---
SS following up with discharge planning. SS phoned and faxed clinical updates to [facility], ; fax [phone]. SS will wait discharge orders for return to [facility] and will proceed accordingly.
[2018-11-17] MEDS: POLYVINYL ALCOHOL 1.4% OPHTH SOLUTION 15ML BOTTLE. OU SCH ×4 (09:40→20:59)
--- NOTE | 2018-11-17 10:01 | RAD ---
CT of the abdomen and pelvis without contrast, 11/17/2018: HISTORY: Constipation versus bowel obstruction, chronic opioid use Noncontrast scans were obtained and compared to a study from 02/23/2018. There is mild atelectasis in the posterior costophrenic angles bilaterally. There is mild interlobular septal thickening in the lung bases, more so on the left, not evident on the previous study. The gallbladder is surgically absent. The unopacified liver shows no abnormality. No pancreatic abnormality is detected. There is an unchanged 6.7 cm cystic-appearing lesion in the spleen. The left kidney is surgically absent. The right kidney is scarred and atrophic. There are small right renal cysts. A fluid collection in the right flank region is compatible with a urinary diversion such as an ileal conduit, with extension to an ostomy in the midabdomen. There is moderate calcific plaquing of the abdominal aorta and its branches. No abdominal or pelvic adenopathy is seen. There is a moderate amount gas and stool throughout the colon extending down through the level of the rectum. There are surgical sutures related to the transverse colon. The small bowel loops are not dilated. Surgical clips are present in the region of the GE junction. No free fluid or free air is evident in the abdomen or pelvis. There is a mild thoracolumbar scoliosis. Spina bifida is noted at the upper sacral level. There is chronic bilateral hip dysplasia and dislocations. An internal fixation device is present related to the proximal right femur. Similar findings were present on the previous study. IMPRESSION: 1. Increased gas and stool throughout the colon extending to the rectum without evidence of a focal obstructive process. The findings are compatible with an atonic colon. 2. Mild bibasilar atelectasis. 3. Minimal interlobular septal thickening in the lung bases, suggesting low-grade interstitial edema. 4. Atrophic scarred right kidney. 5. Additional chronic findings as described above. PQRS Compliance Statement: One or more of the following individualized dose reduction techniques were utilized for this examination: 1. Automated exposure control 2. Adjustment of the mA and/or kV according to patient size 3. Use of iterative reconstruction technique Electronically signed by: Eligio Little MD (11/17/2018 9:58 AM) [facility]
[2018-11-17] MEDS: FOLIC/VIT B COMP W-C (RENAL) TABLET. PO SCH (10:08)
[2018-11-17] MEDS: amLODIPine BESYLATE 10 MG TABLET PO SCH (10:10)
[2018-11-17] MEDS: LEVOTHYROXINE 75 MCG TABLET PO SCH (10:10)
[2018-11-17] MEDS: CETIRIZINE HCL 10 MG TABLET. PO SCH (10:10)
[2018-11-17] MEDS: SERTRALINE 50 MG TABLET. PO SCH (10:11)
[2018-11-17] MEDS: DULoxetine HCL 30 MG CAPSULE.DR PO SCH ×2 (10:11→20:56)
[2018-11-17] MEDS: cloNIDine HCL 0.3 MG TABLET PO SCH (10:11)
[2018-11-17] MEDS: oxyCODONE ER 10 MG TAB.ER.12H PO SCH ×2 (10:12→20:59)
--- NOTE | 2018-11-17 11:36 | PDOC ---
Renal-Progress Notes Subjective Notes Notes STABLE History of Present Illness Hx of present illness NO CHANGE Vitals Vitals Vital Signs Date Time Temp Pulse Resp B/P (MAP) Pulse Ox O2 Delivery O2 Flow Rate FiO2 11/17/18 11:00 98.4 64 18 146/78 (100) 98 Nasal Cannula 2.0 98.4 Weight Weight [ ] I.O. Intake and Output Intake and Output 11/17/18 07:00 Intake Total 480 ml Balance 480 ml Intake Oral 480 ml Labs Labs Laboratory Tests Test 11/16/18 19:40 Sodium Level 138 mmol/L (136-145) Potassium Level 4.9 mmol/L (3.5-5.1) Chloride Level 98 mmol/L (98-107) Carbon Dioxide Level 32 mmol/L (21-32) Anion Gap 8 (6-14) Blood Urea Nitrogen 42 mg/dL (8-26) Creatinine 5.6 mg/dL (0.7-1.3) Estimated GFR (Cockcroft-Gault) 10.4 Glucose Level 132 mg/dL (70-99) Calcium Level 8.9 mg/dL (8.5-10.1) Review of Systems Constitutional: yes: alert, oriented Ears/Nose/Throat: Yes: no symptom reported Eyes: Yes: no symptom reported Pulmonary: Yes no symptom reported Cardiovascular: Yes no symptom reported Gastrointestional: Yes: no symptom reported Genitourinary: Yes: no symptom reported Musculoskeletal: Yes: no symptom reported Skin: Yes no symptom reported Psychiatric/Neurological: Yes: no symptom reported Endocrine: Yes: no symptom reported Physical Exam General Appearance: no apparent distress Skin: warm Respiratory: bilateral CTA Heart: S1S2 Abdomen: soft Genitourinary: bladder flat Extremities: pulses present Neurology: alert Musculoskeletal: Other Assessment Assessment IMP CHEST PAIN-IA RULED OUT HTN ANEMIA ESRD PLAN HD TOMORROW EGD TODAY [facility] CARDIOLOGY EVALUATION KELLY CALHOUN MD Nov 17, 2018 11:36
[2018-11-17] MEDS: IV NORMAL SALINE 1000ML BAG 1,000 ML IV SCH (12:20)
--- NOTE | 2018-11-17 12:36 | NUR ---
Patient left for EGD at 1200. Report given to LINDSAY Denney on 6th floor where patient will be transferred after his procedure.
[2018-11-17] MEDS ORDERED: LIDOCAINE 2% PF 5 ML VIAL. ONE (12:46)
[2018-11-17] MEDS ORDERED: PROPOFOL 20 ML IV ONE (12:46)
--- NOTE | 2018-11-17 13:04 | PDOC4 ---
PROCEDURE Procedure EGD/bermudez dilation Indication: dysphagia Meds: per anesthesia Findings: E--Healed, baseline grade indeterminate, reflux esophagitis distally. No discrete stricture. G--Some retained food (NPO from midnight) consistent with some delay in gastric emptying. Multiple petechiae proximal body suggestive of upward prolapse during reflux/vomiting. D--Normal to second portion. --Empirically dilated with 52F Bermudez; no resistance, no blood on dilator after withdrawal. Jose Antonio. well. IMP: GERD Probably element of gastroparesis. REC: Continue PPI. Esophagram. GES at some point. --reviewed CT; no marked bowel distention. Continue cathartics, prn Relistor. If able, Linzess or similar. Thanks. AIXA POOLE MD Nov 17, 2018 13:04
[2018-11-17] MEDS ORDERED: BARIUM SULFATE 60% 355 ML SUSP PO ONE (13:45)
--- NOTE | 2018-11-17 14:34 | RAD ---
Esophagram, 11/17/2018: History: Dysphasia Due to the patient's poor mobility the study was performed in the right lateral decubitus position on the fluoroscopic table. Thin liquid barium was utilized. 8 static and dynamic fluoroscopic sequences were recorded. 1.9 minutes of fluoroscopy time was utilized. The patient demonstrated good oral control of the barium materials. There was prompt initiation of pharyngeal peristalsis. No aspiration was observed. There is no obstruction to flow of the barium through the cervical esophagus. Peristaltic activity in the thoracic esophagus was mildly decreased with tertiary contractions in the distal esophagus. This resulted in mild stasis of some of the ingested barium in the thoracic esophagus. No obstructing esophageal lesion was seen. There are surgical clips projected over the region of the GE junction. No hiatal hernia was identified. IMPRESSION: 1. No obstructing esophageal process is identified. 2. Mildly decreased esophageal peristalsis with mild tertiary contractions in the distal esophagus.
[2018-11-17] MEDS: BISACODYL 5 MG TABLET.DR. PO SCH (14:41)
[2018-11-17] MEDS: DOCUSATE SODIUM 100 MG CAPSULE. PO SCH ×2 (14:41→20:56)
[2018-11-17] MEDS: PANTOPRAZOLE 40 MG TABLET.DR. PO SCH (14:41)
[2018-11-17] MEDS: POLYETHYLENE GLYCOL 3350 17 GM PACKET. PO SCH ×2 (14:42→20:59)
[2018-11-17] MEDS: clonazePAM 0.5 MG TABLET PO SCH ×2 (14:42→20:57)
--- NOTE | 2018-11-17 15:14 | NUR ---
Received patient transfer from [facility], senior mortgage underwriter agrees with previous nurse head to toe assessment, will continue to monitor.
[2018-11-17] MEDS: CALCIUM CARBONATE 500 MG TABLET PO SCH (20:56)
[2018-11-17] MEDS: traZODone 100 MG TABLET. PO SCH (20:57)
--- NOTE | 2018-11-18 00:37 | PN ---
DATE: 11/17/2018 SUBJECTIVE: The patient is resting, slightly propped up in bed, in no apparent respiratory distress. He continued to complain of abdominal pain. He denied any bowel movement yesterday, last night or this morning. He did complain of dysphagia and he is scheduled for upper GI endoscopy today. PHYSICAL EXAMINATION: GENERAL: When I examined him, he looked well and was clearly in no apparent respiratory distress, pale, but no jaundice, cyanosis, or thyromegaly. No jugular venous distention. No lower limb edema. VITAL SIGNS: His heart rate was 67, blood pressure was 161/77, temperature was 98.4, respiratory rate was 18 and oxygen saturation was 97% on 2 liters of oxygen. HEAD, EYES, EARS, NOSE AND THROAT: Showed normocephalic, atraumatic. NECK: Supple. HEART: Showed normal first and second heart sounds. No gallop, rub or murmur. CHEST: Clear to auscultation. No crepitation or rhonchi. ABDOMEN: Distended, soft, nontender. No guarding or rigidity. No organomegaly. All hernial orifice intact. Bowel sounds normal. NEUROLOGIC: He was awake, alert, responding appropriately. All cranial nerves intact. He moves upper extremities without difficulty. 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 He is completely anuric and hemodialysis dependent. LABORATORY DATA: As of this morning, his serum sodium 138, potassium 4.9, chloride 98, bicarbonate 32, anion gap of 8, BUN 42, creatinine 5.6, estimated GFR was 10.4, glucose was 132, calcium was 8.9. TSH was normal. ASSESSMENT: 1. Chest pain for which the patient had 3 sets of cardiac enzymes, troponin are within normal range. Cardiology team recommend ischemic workup as an outpatient. 2. Acute on chronic diastolic congestive heart failure. 3. End-stage renal disease, on hemodialysis. 4. Hypertension. 5. Spina bifida with paraplegia. 6. Arnold-Chiari syndrome with seizure disorder. 7. Obesity. 8. Hypothyroidism. 9. Severe opioid-induced constipation. 10. Dysphagia. The patient had history of esophageal stricture that was dilated. He is scheduled for upper GI endoscopy today. PLAN: My plan is to continue to arrange for him to have a CT scan of the abdomen and pelvis without contrast and once we have the report and if there is no evidence of bowel obstruction, we will arrange for him to have another Relistor. Meanwhile, he is scheduled for upper GI endoscopy today. WAYLON CONCEPCION MD DR: ADDIE/joe JOB#: [id number] / [id number]
[2018-11-18 03:30] VITALS: BP 122/61
[2018-11-18 04:16] LABS: HEMATOCRIT 36.8 % (39.0-53.0); HEMOGLOBIN 11.8 g/dL (13.0-17.5); RED BLOOD COUNT 3.7 x10^6/uL (4.30-5.70); RED CELL DISTRIBUTION WIDTH 15.1 % (11.5-14.5); WHITE BLOOD COUNT 4.4 x10^3/uL (4.0-11.0)
[2018-11-18 05:05] LABS: CALCIUM 8.9 mg/dL (8.5-10.1); CREATININE 7.8 mg/dL (0.7-1.3); GFR 7.1
[2018-11-18 07:00] VITALS: BP 144/81
[2018-11-18] MEDS: LEVOTHYROXINE 75 MCG TABLET PO SCH (07:00)
--- NOTE | 2018-11-18 07:43 | NUR ---
Thyroid not given. Too close to breakfast and going to Dialysis
[2018-11-18] MEDS: ONDANSETRON PF 4 MG/2 ML VIAL. IV PRN (08:05)
[2018-11-18] MEDS: DULoxetine HCL 30 MG CAPSULE.DR PO SCH ×2 (09:29→20:53)
[2018-11-18] MEDS: BISACODYL 5 MG TABLET.DR. PO SCH (09:29)
[2018-11-18] MEDS: PANTOPRAZOLE 40 MG TABLET.DR. PO SCH (09:29)
[2018-11-18] MEDS: cloNIDine HCL 0.3 MG TABLET PO SCH (09:30)
[2018-11-18] MEDS: amLODIPine BESYLATE 10 MG TABLET PO SCH (09:31)
[2018-11-18] MEDS: METOCLOPRAMIDE 10 MG TABLET. PO SCH ×3 (09:31→18:46)
[2018-11-18] MEDS: clonazePAM 0.5 MG TABLET PO SCH ×2 (09:31→20:53)
[2018-11-18] MEDS: DOCUSATE SODIUM 100 MG CAPSULE. PO SCH ×2 (09:31→20:53)
[2018-11-18] MEDS: FOLIC/VIT B COMP W-C (RENAL) TABLET. PO SCH (09:31)
[2018-11-18] MEDS: oxyCODONE ER 10 MG TAB.ER.12H PO SCH ×2 (09:32→20:53)
[2018-11-18] MEDS: POLYVINYL ALCOHOL 1.4% OPHTH SOLUTION 15ML BOTTLE. OU SCH ×4 (09:32→20:53)
[2018-11-18] MEDS: CALCIUM ACETATE 667 MG CAPSULE PO SCH ×3 (09:32→18:45)
[2018-11-18] MEDS: POLYETHYLENE GLYCOL 3350 17 GM PACKET. PO SCH ×2 (09:32→20:54)
[2018-11-18] MEDS: SERTRALINE 50 MG TABLET. PO SCH (09:33)
[2018-11-18] MEDS: CETIRIZINE HCL 10 MG TABLET. PO SCH (09:47)
[2018-11-18] MEDS ORDERED: SENNOSIDES 8.6 MG TABLET PO SCH (10:00)
[2018-11-18 11:00] VITALS: BP 146/79
[2018-11-18] MEDS ORDERED: IV NORMAL SALINE 1000ML BAG 1,000 ML IV PRN ×2 (11:10)
--- NOTE | 2018-11-18 11:14 | PDOC ---
G I PROGRESS NOTE Subjective Sleeping, not awakened. Objective Per staff, stooling. Stimulation (rectal exam, etc.) seems to promote. Physical Exam No PE. Review of Relevant I have reviewed the following items slim (where applicable) has been applied. Labs Laboratory Tests Test 11/16/18 19:40 11/18/18 04:00 Sodium Level 138 mmol/L (136-145) 135 mmol/L (136-145) Potassium Level 4.9 mmol/L (3.5-5.1) 6.0 mmol/L (3.5-5.1) Chloride Level 98 mmol/L (98-107) 95 mmol/L (98-107) Carbon Dioxide Level 32 mmol/L (21-32) 31 mmol/L (21-32) Anion Gap 8 (6-14) 9 (6-14) Blood Urea Nitrogen 42 mg/dL (8-26) 72 mg/dL (8-26) Creatinine 5.6 mg/dL (0.7-1.3) 7.8 mg/dL (0.7-1.3) Estimated GFR (Cockcroft-Gault) 10.4 7.1 Glucose Level 132 mg/dL (70-99) 80 mg/dL (70-99) Calcium Level 8.9 mg/dL (8.5-10.1) 8.9 mg/dL (8.5-10.1) White Blood Count 4.4 x10^3/uL (4.0-11.0) Red Blood Count 3.70 x10^6/uL (4.30-5.70) Hemoglobin 11.8 g/dL (13.0-17.5) Hematocrit 36.8 % (39.0-53.0) Mean Corpuscular Volume 99 fL (79-100) Mean Corpuscular Hemoglobin 32 pg (25-35) Mean Corpuscular Hemoglobin Concent 32 g/dL (31-37) Red Cell Distribution Width 15.1 % (11.5-14.5) Platelet Count 152 x10^3/uL (140-400) Laboratory Tests Test 11/18/18 04:00 White Blood Count 4.4 x10^3/uL (4.0-11.0) Red Blood Count 3.70 x10^6/uL (4.30-5.70) Hemoglobin 11.8 g/dL (13.0-17.5) Hematocrit 36.8 % (39.0-53.0) Mean Corpuscular Volume 99 fL (79-100) Mean Corpuscular Hemoglobin 32 pg (25-35) Mean Corpuscular Hemoglobin Concent 32 g/dL (31-37) Red Cell Distribution Width 15.1 % (11.5-14.5) Platelet Count 152 x10^3/uL (140-400) Sodium Level 135 mmol/L (136-145) Potassium Level 6.0 mmol/L (3.5-5.1) Chloride Level 95 mmol/L (98-107) Carbon Dioxide Level 31 mmol/L (21-32) Anion Gap 9 (6-14) Blood Urea Nitrogen 72 mg/dL (8-26) Creatinine 7.8 mg/dL (0.7-1.3) Estimated GFR (Cockcroft-Gault) 7.1 Glucose Level 80 mg/dL (70-99) Calcium Level 8.9 mg/dL (8.5-10.1) Vitals/I & O Vital Sign - Last 24 Hours 11/17/18 11/17/18 11/17/18 11/17/18 12:13 12:15 12:58 13:06 Temp 97.4 97.1 97.4 97.1 Pulse 69 63 59 Resp 20 16 16 B/P (MAP) 147/80 141/76 Pulse Ox 91 95 96 O2 Delivery Nasal Cannula Nasal Cannula Nasal Cannula O2 Flow Rate 2.0 3 3 11/17/18 11/17/18 11/17/18 11/17/18 13:15 13:29 15:32 19:25 Temp 97.9 97.9 97.9 97.9 Pulse 62 64 62 60 Resp 16 16 20 18 B/P (MAP) 154/87 144/77 (99) 131/74 (93) Pulse Ox 96 98 99 97 O2 Delivery Nasal Cannula Nasal Cannula Nasal Cannula Nasal Cannula O2 Flow Rate 3 3 2.0 2.0 11/17/18 11/17/18 11/17/18 11/18/18 20:01 20:59 23:25 00:49 Temp 97.4 97.4 Pulse 60 Resp 18 18 18 B/P (MAP) 116/64 (81) Pulse Ox 97 93 93 O2 Delivery Nasal Cannula Nasal Cannula Nasal Cannula Nasal Cannula O2 Flow Rate 2.0 2.0 2.0 2.0 11/18/18 11/18/18 11/18/18 11/18/18 03:30 07:00 09:30 09:31 Temp 97.8 97.5 97.8 97.5 Pulse 68 68 68 68 Resp 18 16 B/P (MAP) 122/61 (81) 144/81 (102) 144/81 144/81 Pulse Ox 94 97 O2 Delivery Nasal Cannula Nasal Cannula O2 Flow Rate 2.0 2.0 11/18/18 09:32 O2 Delivery Room Air Intake and Output 11/17/18 11/17/18 11/18/18 15:00 23:00 07:00 Intake Total 200 ml 320 ml 240 ml Balance 200 ml 320 ml 240 ml Images On esophagram: MPRESSION: 1. No obstructing esophageal process is identified. 2. Mildly decreased esophageal peristalsis with mild tertiary contractions in the distal esophagus. Problem List Problems Medical Problems: (1) Chest pain Status: Acute (2) Congestive heart failure Status: Acute Assessment Dysphagia, largely on basis of esophageal dysmotility. GERD Colonic inertia/narcotic bowel--note plans for repeat Relistor and increased stimulant/Miralax. If he would accept, daily suppository or other anorectal stimulation would be helpful. Probably some element of gastroparesis, but already on metoclopramide. Plan of Care Note Continue PPI, prokinetic, laxitives, etc. Consider daily suppository (glycerin to start with/Ducolax if needed) if will accept. AIXA POOLE MD Nov 18, 2018 11:14
[2018-11-18] MEDS ORDERED: diphenhydrAMINE 50 MG/ML VIAL IV PRN ×2 (11:15)
[2018-11-18] MEDS ORDERED: ACETAMINOPHEN 500 MG TABLET PO PRN (11:15)
[2018-11-18] MEDS ORDERED: DIALYSIS PATIENT. MC PRN (11:15)
[2018-11-18] MEDS ORDERED: ALBUMIN HUMAN 25% 200 ML IV PRN (11:15)
[2018-11-18] MEDS: IV NORMAL SALINE 1000ML BAG 1,000 ML IV SCH (11:30)
--- NOTE | 2018-11-18 15:45 | PDOC ---
PROGRESS NOTES Subjective Subjective SEEN IN FOLLOW UP OF ESRD Objective Objective Vital Signs Date Time Temp Pulse Resp B/P (MAP) Pulse Ox O2 Delivery O2 Flow Rate FiO2 11/18/18 13:33 Room Air 11/18/18 11:00 97.5 66 16 146/79 (101) 94 2.0 97.5 Intake and Output 11/18/18 07:00 Intake Total 760 ml Balance 760 ml Intake Oral 560 ml IV Total 200 ml # Voids 1 Physical Exam Abdomen: Normal bowel sounds, Soft, No tenderness, No hepatosplenomegaly, No masses Heart: Regular rate, Normal S1, Normal S2, No murmurs, Gallops Extremities: No clubbing, No cyanosis, No edema, Normal pulses, No tenderness/ swelling Lungs: Clear to auscultation, Normal air movement Diagnosis RENAL FAILURE: ESRD Assessment Assessment Problems Medical Problems: (1) Chest pain Status: Acute (2) Congestive heart failure Status: Acute Plan Plan of Care SEEN ON DIALYSIS AND TOLERATING WELL Comment Review of Relevant I have reviewed the following items slim (where applicable) has been applied. Labs Laboratory Tests Test 11/16/18 19:40 11/18/18 04:00 Sodium Level 138 mmol/L (136-145) 135 mmol/L (136-145) Potassium Level 4.9 mmol/L (3.5-5.1) 6.0 mmol/L (3.5-5.1) Chloride Level 98 mmol/L (98-107) 95 mmol/L (98-107) Carbon Dioxide Level 32 mmol/L (21-32) 31 mmol/L (21-32) Anion Gap 8 (6-14) 9 (6-14) Blood Urea Nitrogen 42 mg/dL (8-26) 72 mg/dL (8-26) Creatinine 5.6 mg/dL (0.7-1.3) 7.8 mg/dL (0.7-1.3) Estimated GFR (Cockcroft-Gault) 10.4 7.1 Glucose Level 132 mg/dL (70-99) 80 mg/dL (70-99) Calcium Level 8.9 mg/dL (8.5-10.1) 8.9 mg/dL (8.5-10.1) White Blood Count 4.4 x10^3/uL (4.0-11.0) Red Blood Count 3.70 x10^6/uL (4.30-5.70) Hemoglobin 11.8 g/dL (13.0-17.5) Hematocrit 36.8 % (39.0-53.0) Mean Corpuscular Volume 99 fL (79-100) Mean Corpuscular Hemoglobin 32 pg (25-35) Mean Corpuscular Hemoglobin Concent 32 g/dL (31-37) Red Cell Distribution Width 15.1 % (11.5-14.5) Platelet Count 152 x10^3/uL (140-400) Laboratory Tests Test 11/18/18 04:00 White Blood Count 4.4 x10^3/uL (4.0-11.0) Red Blood Count 3.70 x10^6/uL (4.30-5.70) Hemoglobin 11.8 g/dL (13.0-17.5) Hematocrit 36.8 % (39.0-53.0) Mean Corpuscular Volume 99 fL (79-100) Mean Corpuscular Hemoglobin 32 pg (25-35) Mean Corpuscular Hemoglobin Concent 32 g/dL (31-37) Red Cell Distribution Width 15.1 % (11.5-14.5) Platelet Count 152 x10^3/uL (140-400) Sodium Level 135 mmol/L (136-145) Potassium Level 6.0 mmol/L (3.5-5.1) Chloride Level 95 mmol/L (98-107) Carbon Dioxide Level 31 mmol/L (21-32) Anion Gap 9 (6-14) Blood Urea Nitrogen 72 mg/dL (8-26) Creatinine 7.8 mg/dL (0.7-1.3) Estimated GFR (Cockcroft-Gault) 7.1 Glucose Level 80 mg/dL (70-99) Calcium Level 8.9 mg/dL (8.5-10.1) Medications Current Medications Furosemide (Lasix) 80 mg 1X ONCE IVP Last administered on 11/14/18at 11:38; Start 11/14/18 at 11:15; Stop 11/14/18 at 11:16; Status DC Aspirin (Children'S Aspirin) 324 mg 1X ONCE PO Last administered on 11/14/18at 11:42; Start 11/14/18 at 11:15; Stop 11/14/18 at 11:16; Status DC Nitroglycerin (Nitro-Bid Oint) 1 inch 1X ONCE TP Last administered on 11:40; Start 11/14/18 at 11:15; Stop 11/14/18 at 11:16; Status DC Ondansetron HCl (Zofran) 4 mg PRN Q8HRS PRN IV NAUSEA/VOMITING Last administered on 11/15/18 04:19; Start 11/14/18 at 11:15; Stop 11/15/18 at 11:14 ; Status DC Clonazepam (KlonoPIN) 0.5 mg BID PO Last administered on 11/18/18 09:31; Start 11/14/18 at 21:00 Trazodone HCl (Desyrel) 100 mg QHS PO Last administered on 11/17/18 20:57; Start 11/14/18 at 21:00 Calcium Acetate (Phoslo) 667 mg TIDWMEALS PO Last administered on 11/15/18 08: 21; Start 11/14/18 at 18:30; Stop 11/15/18 at 08:32; Status DC Hydralazine HCl (Apresoline Inj) 10 mg PRN Q4HRS PRN IVP ELEVATED BP, SEE COMMENTS Last administered on 11/17/18 03:47; Start 11/14/18 at 18:45 Polyethylene Glycol (miraLAX PACKET) 17 gm BID PO Last administered on 09:32; Start 11/14/18 at 21:00 Methylnaltrexone [place] (Relistor) 6 mg 1X ONCE SQ Last administered on 19:18; Start 11/14/18 at 19:00; Stop 11/14/18 at 19:01; Status DC Amlodipine Besylate (Norvasc) 10 mg 1X ONCE PO Last administered on 11/14/18 19:18; Start 11/14/18 at 19:00; Stop 11/14/18 at 19:01; Status DC Acetaminophen (Tylenol) 650 mg PRN Q4HRS PRN PO PAIN MILD/TEMP Last administered on 11/15/18 15:27; Start 11/15/18 at 05:00 Amlodipine Besylate (Norvasc) 10 mg DAILY PO Last administered on 11/18/18 09: 31; Start 11/15/18 at 09:00 Calcium Acetate (Phoslo) 2,001 mg TIDWMEALS PO Last administered on 11/18/18 13:17; Start 11/15/18 at 12:00 Calcium Acetate (Phoslo) 1,334 mg 1X ONCE PO Last administered on 11/15/18 09 :48; Start 11/15/18 at 08:30; Stop 11/15/18 at 08:33; Status DC Acetaminophen (Tylenol) 650 mg PRN Q6HRS PRN PO HEADACHE / TEMP; Start at 12:00; Status Cancel Amlodipine Besylate (Norvasc) 10 mg DAILY PO ; Start 11/16/18 at 09:00; Status UNV Cetirizine HCl (ZyrTEC) 10 mg DAILY PO Last administered on 11/18/18 09:47; Start 11/15/18 at 10:30 Cetirizine HCl (ZyrTEC) 10 mg DAILY PO ; Start 11/16/18 at 09:00; Status UNV Clonidine HCl (Catapres) 0.3 mg DAILY PO Last administered on 11/18/18 09:30; Start 11/15/18 at 10:30 Docusate Sodium (Colace) 100 mg BID PO Last administered on 11/18/18 09:31; Start 11/15/18 at 10:30 Vitamin B Complex/ Vitamin C (Litzy-Dangelo) 1 tab DAILY PO Last administered on 09:31; Start 11/15/18 at 10:30 Levothyroxine Sodium (Synthroid) 75 mcg DAILY07 PO Last administered on 10:10; Start 11/15/18 at 10:30 Metoclopramide HCl (Reglan) 5 mg TIDWMEALS PO Last administered on 11/18/18 13 :19; Start 11/15/18 at 12:00 Nitroglycerin (Nitrostat) 0.4 mg PRN Q10MIN PRN SL CHEST PAIN; Start 11/15/18 at 09:15 Bisacodyl (Dulcolax Tab) 5 mg DAILY PO Last administered on 11/18/18 09:29; Start 11/15/18 at 10:30; Stop 11/18/18 at 09:51; Status DC Calcium Carbonate/ Glycine (Oscal) 1,000 mg QHS PO Last administered on 20:56; Start 11/15/18 at 21:00 Duloxetine HCl (Cymbalta) 60 mg BID PO Last administered on 11/18/18 09:29; Start 11/15/18 at 10:30 Meclizine HCl (Antivert) 12.5 mg PRN Q8HRS PRN PO DIZZINESS; Start 11/15/18 at 09:45 Oxycodone HCl (OxyCONTIN) 10 mg Q12HR PO Last administered on 11/18/18 09:32; Start 11/15/18 at 10:30 Pantoprazole Sodium (Protonix) 40 mg DAILYAC PO Last administered on 11/18/18 09:29; Start 11/15/18 at 10:30 Non-Formulary Medication (Polyethylene Glycol 3350 (Miralax)) 1 packet BID PO ; Start 11/15/18 at 21:00; Status UNV Artificial Tears (Artificial Tears) 1 drop QID OU Last administered on 13:17; Start 11/15/18 at 13:00 Sertraline HCl (Zoloft) 200 mg DAILY PO Last administered on 11/18/18 09:33; Start 11/15/18 at 10:30 Ondansetron HCl (Zofran) 4 mg PRN Q8HRS PRN IV NAUSEA/VOMITING Last administered on 11/18/18 08:05; Start 11/15/18 at 15:15 Methylnaltrexone [place] (Relistor) 12 mg 1X ONCE SQ Last administered on 11/15 17:49; Start 11/15/18 at 16:30; Stop 11/15/18 at 16:31; Status DC Sodium Chloride 1,000 ml @ 1,000 mls/hr Q1H PRN IV hypotension; Start 11/16/18 at 07:22; Stop 11/16/18 at 13:21; Status DC Diphenhydramine HCl (Benadryl) 25 mg 1X PRN PRN IV ITCHING; Start 11/16/18 at 07:30; Stop 11/17/18 at 07:29; Status DC Diphenhydramine HCl (Benadryl) 25 mg 1X PRN PRN IV ITCHING; Start 11/16/18 at 07:30; Stop 11/17/18 at 07:29; Status DC Sodium Chloride 1,000 ml @ 400 mls/hr Q2H30M PRN IV PATENCY; Start 11/16/18 at 07:22; Stop 11/16/18 at 19:21; Status DC Info (PHARMACY MONITORING -- do not chart) 1 each PRN DAILY PRN MC SEE COMMENTS ; Start 11/16/18 at 07:30 Sodium Chloride 1,000 ml @ 30 mls/hr Q24H IV Last administered on 11/17/18at 12 :20; Start 11/17/18 at 11:30 Methylnaltrexone [place] (Relistor) 12 mg 1X ONCE SQ Last administered on 11/17at 09:41; Start 11/17/18 at 08:45; Stop 11/17/18 at 08:46; Status DC Propofol 20 ml @ As Directed STK-MED ONCE IV ; Start 11/17/18 at 12:46; Stop at 12:47; Status DC Lidocaine HCl (Lidocaine Pf 2% Vial) 5 ml STK-MED ONCE .ROUTE ; Start 11/17/18 at 12:46; Stop 11/17/18 at 12:47; Status DC Barium Sulfate (Liquid E-Z Paque) 355 ml 1X ONCE PO Last administered on at 14:00; Start 11/17/18 at 13:45; Stop 11/17/18 at 13:46; Status DC Methylnaltrexone [place] (Relistor) 12 mg DAILY SQ ; Start 11/18/18 at 11:00 Bisacodyl (Dulcolax Tab) 10 mg DAILY PO ; Start 11/19/18 at 09:00 Sennosides (Senna) 17.2 mg PRN BID PO ; Start 11/18/18 at 10:00 Sodium Chloride 1,000 ml @ 1,000 mls/hr Q1H PRN IV hypotension; Start 11/18/18 at 11:10; Stop 11/18/18 at 17:09 Albumin Human 200 ml @ 200 mls/hr 1X PRN PRN IV Hypotension; Start 11/18/18 at 11:15; Stop 11/18/18 at 17:14 Acetaminophen (Tylenol) 500 mg 1X PRN PRN PO MILD PAIN / TEMP; Start 11/18/18 at 11:15; Stop 11/19/18 at 11:14 Diphenhydramine HCl (Benadryl) 25 mg 1X PRN PRN IV ITCHING; Start 11/18/18 at 11:15; Stop 11/19/18 at 11:14 Diphenhydramine HCl (Benadryl) 25 mg 1X PRN PRN IV ITCHING; Start 11/18/18 at 11:15; Stop 11/19/18 at 11:14 Sodium Chloride 1,000 ml @ 400 mls/hr Q2H30M PRN IV PATENCY; Start 11/18/18 at 11:10; Stop 11/18/18 at 23:09 Info (PHARMACY MONITORING -- do not chart) 1 each PRN DAILY PRN MC SEE COMMENTS ; Start 11/18/18 at 11:15 Active Scripts Active Colace (Docusate Sodium) 100 Mg Capsule 1 Cap PO BID Reported Calcium Acetate 667 Mg Tablet 3 Tab PO TIDWMEALS Clonidine Hcl 0.3 Mg Tablet 0.3 Mg TD DAILY Loperamide (Loperamide Hcl) 2 Mg Capsule 2 Mg PO Q4HRS Meclizine Hcl 12.5 Mg Tablet 12.5 Mg PO Q8HRS PRN Zyrtec (Cetirizine Hcl) 10 Mg Tablet 1 Tab PO DAILY Protonix (Pantoprazole Sodium) 20 Mg Tablet.dr 40 Mg PO DAILY Zyrtec (Cetirizine Hcl) 10 Mg Tablet 1 Tab PO DAILY Cymbalta (Duloxetine Hcl) 60 Mg Capsule.dr 60 Mg PO BID Norvasc (Amlodipine Besylate) 10 Mg Tablet 10 Mg PO DAILY Systane 0.3-0.4% Eye Drops (Propylene Glycol/Peg 400) 15 Ml Drops 1 Drop EACHEYE QID Women's Laxative (Bisacodyl) 5 Mg Tablet 1 Tab PO UD Clonazepam 0.5 Mg Tablet 1 Tab PO BID Oxycontin (Oxycodone HCl) 20 Mg Tab.er.12h 10 Mg PO BID Trazodone Hcl 100 Mg Tablet 1 Tab PO QHS Zoloft (Sertraline Hcl) 100 Mg Tablet 2 Tab PO DAILY Tylenol (Acetaminophen) 325 Mg Tablet 650 Mg PO Q6HRS Reglan (Metoclopramide Hcl) 10 Mg Tablet 5 Mg PO TID Nitrostat (Nitroglycerin) 0.4 Mg Tab.subl 0.4 Mg SL PRN Q10MIN PRN Nephro-Dangelo Tablet (Folic Acid/Vitamin B Comp W-C) 0.8 Mg Tablet 1 Tab PO DAILY Miralax (Polyethylene Glycol 3350) 17 Gm Powd.pack 1 Packet PO BID Levothyroxine Sodium 75 Mcg Tablet 1 Tab PO DAILY Calcium Carbonate 650 Mg Tablet 1,000 Mg PO QHS Vitals/I & O Vital Sign - Last 24 Hours 11/17/18 11/17/18 11/17/18 11/17/18 19:25 20:01 20:59 23:25 Temp 97.9 97.4 97.9 97.4 Pulse 60 60 Resp 18 18 18 B/P (MAP) 131/74 (93) 116/64 (81) Pulse Ox 97 97 93 O2 Delivery Nasal Cannula Nasal Cannula Nasal Cannula Nasal Cannula O2 Flow Rate 2.0 2.0 2.0 2.0 11/18/18 11/18/18 11/18/18 11/18/18 00:49 03:30 07:00 08:00 Temp 97.8 97.5 97.8 97.5 Pulse 68 68 Resp 18 18 16 B/P (MAP) 122/61 (81) 144/81 (102) Pulse Ox 93 94 97 O2 Delivery Nasal Cannula Nasal Cannula Nasal Cannula O2 Flow Rate 2.0 2.0 2.0 2.0 11/18/18 11/18/18 11/18/18 11/18/18 09:30 09:31 09:32 11:00 Temp 97.5 97.5 Pulse 68 68 66 Resp 16 B/P (MAP) 144/81 144/81 146/79 (101) Pulse Ox 94 O2 Delivery Room Air Nasal Cannula O2 Flow Rate 2.0 11/18/18 13:33 O2 Delivery Room Air Intake and Output 11/17/18 11/17/18 11/18/18 15:00 23:00 07:00 Intake Total 200 ml 320 ml 240 ml Balance 200 ml 320 ml 240 ml AIXA WEBBER MD Nov 18, 2018 15:45
[2018-11-18] MEDS: METHYLNALTREXONE 12 MG/0.6 ML VIAL. SQ SCH (18:46)
[2018-11-18] MEDS: ACETAMINOPHEN 325 MG TABLET. PO PRN (18:50)
[2018-11-18 19:55] VITALS: BP 131/73
[2018-11-18] MEDS: traZODone 100 MG TABLET. PO SCH (20:53)
[2018-11-18] MEDS: CALCIUM CARBONATE 500 MG TABLET PO SCH (20:56)
--- NOTE | 2018-11-19 02:14 | PN ---
DATE: 11/18/2018 SUBJECTIVE: The patient is resting, slightly propped up in bed, in no apparent distress. Continued to complain of some nausea, but no vomiting. Has abdominal pain; so far has had only small bowel movement. His CT scan of the abdomen and pelvis showed it has increased gas and stool throughout the colon extending to the rectum without evidence of focal obstructive process. The findings are more compatible with an atonic colon. Has mild bibasilar atelectasis, minimal interlobular septal thickening in the lung bases suggesting low grade interstitial edema, has atrophic scar right kidney. Additional chronic finding as described. Apparently, he underwent esophagogastroduodenoscopy which showed that in the esophagus he has healed baseline grade indeterminate reflux esophagitis distally. No discrete stricture. He was found to have some retained food consistent with some delayed gastric emptying as he was n.p.o. from midnight before. He has also multiple petechiae in the body suggestive of upward prolapse during reflux, vomiting. His duodenum; however, was normal. The esophagus was empirically dilated at 52-[place] [place] with no resistance and no blood on dilators after withdrawal with the impression that the patient has gastroesophageal reflux disease with probably element of gastroparesis. The harp repairer also reviewed his CT scan and recommended to continue with the Relistor as needed. PHYSICAL EXAMINATION: GENERAL: When I saw him this morning, he was resting slightly propped up in bed, in no apparent respiratory distress. He is pale, but no jaundice, cyanosis or thyromegaly. No jugular venous distention. No lower limb edema. VITAL SIGNS: His heart rate was 68, blood pressure 144/81, temperature was 97.5, respiratory rate was 18. ABDOMEN: Distended, soft, nontender. GENITOURINARY: I did rectal exam, there is only soft stool in the rectal vault. My plan is to continue with docusate twice a day. Continue with MiraLax twice a day and I will add also Relistor daily for the next 3 days. WAYLON CONCEPCION MD DR: ADDIE/joe JOB#: [id number] / [id number]
[2018-11-19 03:44] VITALS: BP 142/67
[2018-11-19] MEDS: LEVOTHYROXINE 75 MCG TABLET PO SCH (06:02)
[2018-11-19 07:00] VITALS: BP 145/82
[2018-11-19] MEDS: SERTRALINE 50 MG TABLET. PO SCH (08:32)
[2018-11-19] MEDS: ONDANSETRON PF 4 MG/2 ML VIAL. IV PRN (08:33)
[2018-11-19] MEDS: METOCLOPRAMIDE 10 MG TABLET. PO SCH ×3 (08:33→18:19)
[2018-11-19] MEDS: FOLIC/VIT B COMP W-C (RENAL) TABLET. PO SCH (08:33)
[2018-11-19] MEDS: ACETAMINOPHEN 325 MG TABLET. PO PRN ×2 (08:33→18:18)
[2018-11-19] MEDS: CETIRIZINE HCL 10 MG TABLET. PO SCH (08:34)
[2018-11-19] MEDS: PANTOPRAZOLE 40 MG TABLET.DR. PO SCH (08:34)
[2018-11-19] MEDS: cloNIDine HCL 0.3 MG TABLET PO SCH (08:34)
[2018-11-19] MEDS: clonazePAM 0.5 MG TABLET PO SCH ×2 (08:34→21:13)
[2018-11-19] MEDS: DULoxetine HCL 30 MG CAPSULE.DR PO SCH ×2 (08:34→21:14)
[2018-11-19] MEDS: CALCIUM ACETATE 667 MG CAPSULE PO SCH ×3 (08:35→18:18)
[2018-11-19] MEDS: oxyCODONE ER 10 MG TAB.ER.12H PO SCH ×2 (08:35→21:13)
[2018-11-19] MEDS: amLODIPine BESYLATE 10 MG TABLET PO SCH (08:35)
[2018-11-19] MEDS: DOCUSATE SODIUM 100 MG CAPSULE. PO SCH ×2 (08:36→21:13)
[2018-11-19] MEDS: BISACODYL 5 MG TABLET.DR. PO SCH (08:36)
[2018-11-19] MEDS: POLYETHYLENE GLYCOL 3350 17 GM PACKET. PO SCH ×2 (08:36→21:00)
[2018-11-19] MEDS: POLYVINYL ALCOHOL 1.4% OPHTH SOLUTION 15ML BOTTLE. OU SCH ×4 (08:48→21:13)
[2018-11-19 11:00] VITALS: BP 139/85
[2018-11-19] MEDS: IV NORMAL SALINE 1000ML BAG 1,000 ML IV SCH (11:30)
--- NOTE | 2018-11-19 11:43 | PDOC ---
G I PROGRESS NOTE Subjective No major complaints Thinks swallowing some better after dilation the other day. Physical Exam Lungs clear. RRR Abdomen soft, not tender nor distended. Review of Relevant I have reviewed the following items slim (where applicable) has been applied. Labs Laboratory Tests Test 11/18/18 04:00 White Blood Count 4.4 x10^3/uL (4.0-11.0) Red Blood Count 3.70 x10^6/uL (4.30-5.70) Hemoglobin 11.8 g/dL (13.0-17.5) Hematocrit 36.8 % (39.0-53.0) Mean Corpuscular Volume 99 fL (79-100) Mean Corpuscular Hemoglobin 32 pg (25-35) Mean Corpuscular Hemoglobin Concent 32 g/dL (31-37) Red Cell Distribution Width 15.1 % (11.5-14.5) Platelet Count 152 x10^3/uL (140-400) Sodium Level 135 mmol/L (136-145) Potassium Level 6.0 mmol/L (3.5-5.1) Chloride Level 95 mmol/L (98-107) Carbon Dioxide Level 31 mmol/L (21-32) Anion Gap 9 (6-14) Blood Urea Nitrogen 72 mg/dL (8-26) Creatinine 7.8 mg/dL (0.7-1.3) Estimated GFR (Cockcroft-Gault) 7.1 Glucose Level 80 mg/dL (70-99) Calcium Level 8.9 mg/dL (8.5-10.1) Medications Current Medications Furosemide (Lasix) 80 mg 1X ONCE IVP Last administered on 11/14/18at 11:38; Start 11/14/18 at 11:15; Stop 11/14/18 at 11:16; Status DC Aspirin (Children'S Aspirin) 324 mg 1X ONCE PO Last administered on 11/14/18at 11:42; Start 11/14/18 at 11:15; Stop 11/14/18 at 11:16; Status DC Nitroglycerin (Nitro-Bid Oint) 1 inch 1X ONCE TP Last administered on at 11:40; Start 11/14/18 at 11:15; Stop 11/14/18 at 11:16; Status DC Ondansetron HCl (Zofran) 4 mg PRN Q8HRS PRN IV NAUSEA/VOMITING Last administered on 11/15/18 04:19; Start 11/14/18 at 11:15; Stop 11/15/18 at 11:14 ; Status DC Clonazepam (KlonoPIN) 0.5 mg BID PO Last administered on 11/19/18 08:34; Start 11/14/18 at 21:00 Trazodone HCl (Desyrel) 100 mg QHS PO Last administered on 11/18/18 20:53; Start 11/14/18 at 21:00 Calcium Acetate (Phoslo) 667 mg TIDWMEALS PO Last administered on 11/15/18 08: 21; Start 11/14/18 at 18:30; Stop 11/15/18 at 08:32; Status DC Hydralazine HCl (Apresoline Inj) 10 mg PRN Q4HRS PRN IVP ELEVATED BP, SEE COMMENTS Last administered on 11/17/18 03:47; Start 11/14/18 at 18:45 Polyethylene Glycol (miraLAX PACKET) 17 gm BID PO Last administered on 09:32; Start 11/14/18 at 21:00 Methylnaltrexone [place] (Relistor) 6 mg 1X ONCE SQ Last administered on 19:18; Start 11/14/18 at 19:00; Stop 11/14/18 at 19:01; Status DC Amlodipine Besylate (Norvasc) 10 mg 1X ONCE PO Last administered on 11/14/18 19:18; Start 11/14/18 at 19:00; Stop 11/14/18 at 19:01; Status DC Acetaminophen (Tylenol) 650 mg PRN Q4HRS PRN PO PAIN MILD/TEMP Last administered on 11/19/18 08:33; Start 11/15/18 at 05:00 Amlodipine Besylate (Norvasc) 10 mg DAILY PO Last administered on 11/19/18 08: 35; Start 11/15/18 at 09:00 Calcium Acetate (Phoslo) 2,001 mg TIDWMEALS PO Last administered on 11/19/18 08:35; Start 11/15/18 at 12:00 Calcium Acetate (Phoslo) 1,334 mg 1X ONCE PO Last administered on 11/15/18 09 :48; Start 11/15/18 at 08:30; Stop 11/15/18 at 08:33; Status DC Acetaminophen (Tylenol) 650 mg PRN Q6HRS PRN PO HEADACHE / TEMP; Start at 12:00; Status Cancel Amlodipine Besylate (Norvasc) 10 mg DAILY PO ; Start 11/16/18 at 09:00; Status UNV Cetirizine HCl (ZyrTEC) 10 mg DAILY PO Last administered on 11/19/18 08:34; Start 11/15/18 at 10:30 Cetirizine HCl (ZyrTEC) 10 mg DAILY PO ; Start 11/16/18 at 09:00; Status UNV Clonidine HCl (Catapres) 0.3 mg DAILY PO Last administered on 11/19/18 08:34; Start 11/15/18 at 10:30 Docusate Sodium (Colace) 100 mg BID PO Last administered on 11/19/18 08:36; Start 11/15/18 at 10:30 Vitamin B Complex/ Vitamin C (Litzy-Dangelo) 1 tab DAILY PO Last administered on 08:33; Start 11/15/18 at 10:30 Levothyroxine Sodium (Synthroid) 75 mcg DAILY07 PO Last administered on 06:02; Start 11/15/18 at 10:30 Metoclopramide HCl (Reglan) 5 mg TIDWMEALS PO Last administered on 11/19/18 08 :33; Start 11/15/18 at 12:00 Nitroglycerin (Nitrostat) 0.4 mg PRN Q10MIN PRN SL CHEST PAIN; Start 11/15/18 at 09:15 Bisacodyl (Dulcolax Tab) 5 mg DAILY PO Last administered on 11/18/18 09:29; Start 11/15/18 at 10:30; Stop 11/18/18 at 09:51; Status DC Calcium Carbonate/ Glycine (Oscal) 1,000 mg QHS PO Last administered on 20:56; Start 11/15/18 at 21:00 Duloxetine HCl (Cymbalta) 60 mg BID PO Last administered on 3/31/19at 08:34; Start 11/15/18 at 10:30 Meclizine HCl (Antivert) 12.5 mg PRN Q8HRS PRN PO DIZZINESS; Start 11/15/18 at 09:45 Oxycodone HCl (OxyCONTIN) 10 mg Q12HR PO Last administered on 11/19/18 08:35; Start 11/15/18 at 10:30 Pantoprazole Sodium (Protonix) 40 mg DAILYAC PO Last administered on 11/19/18 08:34; Start 11/15/18 at 10:30 Non-Formulary Medication (Polyethylene Glycol 3350 (Miralax)) 1 packet BID PO ; Start 11/15/18 at 21:00; Status UNV Artificial Tears (Artificial Tears) 1 drop QID OU Last administered on 08:48; Start 11/15/18 at 13:00 Sertraline HCl (Zoloft) 200 mg DAILY PO Last administered on 11/19/18 08:32; Start 11/15/18 at 10:30 Ondansetron HCl (Zofran) 4 mg PRN Q8HRS PRN IV NAUSEA/VOMITING Last administered on 11/19/18 08:33; Start 11/15/18 at 15:15 Methylnaltrexone [place] (Relistor) 12 mg 1X ONCE SQ Last administered on 11/15 17:49; Start 11/15/18 at 16:30; Stop 11/15/18 at 16:31; Status DC Sodium Chloride 1,000 ml @ 1,000 mls/hr Q1H PRN IV hypotension; Start 11/16/18 at 07:22; Stop 11/16/18 at 13:21; Status DC Diphenhydramine HCl (Benadryl) 25 mg 1X PRN PRN IV ITCHING; Start 11/16/18 at 07:30; Stop 11/17/18 at 07:29; Status DC Diphenhydramine HCl (Benadryl) 25 mg 1X PRN PRN IV ITCHING; Start 11/16/18 at 07:30; Stop 11/17/18 at 07:29; Status DC Sodium Chloride 1,000 ml @ 400 mls/hr Q2H30M PRN IV PATENCY; Start 11/16/18 at 07:22; Stop 11/16/18 at 19:21; Status DC Info (PHARMACY MONITORING -- do not chart) 1 each PRN DAILY PRN MC SEE COMMENTS ; Start 11/16/18 at 07:30 Sodium Chloride 1,000 ml @ 30 mls/hr Q24H IV Last administered on 11/17/18at 12 :20; Start 11/17/18 at 11:30 Methylnaltrexone [place] (Relistor) 12 mg 1X ONCE SQ Last administered on 11/17at 09:41; Start 11/17/18 at 08:45; Stop 11/17/18 at 08:46; Status DC Propofol 20 ml @ As Directed STK-MED ONCE IV ; Start 11/17/18 at 12:46; Stop at 12:47; Status DC Lidocaine HCl (Lidocaine Pf 2% Vial) 5 ml STK-MED ONCE .ROUTE ; Start 11/17/18 at 12:46; Stop 11/17/18 at 12:47; Status DC Barium Sulfate (Liquid E-Z Paque) 355 ml 1X ONCE PO Last administered on at 14:00; Start 11/17/18 at 13:45; Stop 11/17/18 at 13:46; Status DC Methylnaltrexone [place] (Relistor) 12 mg DAILY SQ Last administered on at 18:46; Start 11/18/18 at 11:00 Bisacodyl (Dulcolax Tab) 10 mg DAILY PO Last administered on 11/19/18at 08:36; Start 11/19/18 at 09:00 Sennosides (Senna) 17.2 mg PRN BID PO ; Start 11/18/18 at 10:00 Sodium Chloride 1,000 ml @ 1,000 mls/hr Q1H PRN IV hypotension; Start 11/18/18 at 11:10; Stop 11/18/18 at 17:09; Status DC Albumin Human 200 ml @ 200 mls/hr 1X PRN PRN IV Hypotension; Start 11/18/18 at 11:15; Stop 11/18/18 at 17:14; Status DC Acetaminophen (Tylenol) 500 mg 1X PRN PRN PO MILD PAIN / TEMP; Start 11/18/18 at 11:15; Stop 11/19/18 at 11:14; Status DC Diphenhydramine HCl (Benadryl) 25 mg 1X PRN PRN IV ITCHING; Start 11/18/18 at 11:15; Stop 11/19/18 at 11:14; Status DC Diphenhydramine HCl (Benadryl) 25 mg 1X PRN PRN IV ITCHING; Start 11/18/18 at 11:15; Stop 11/19/18 at 11:14; Status DC Sodium Chloride 1,000 ml @ 400 mls/hr Q2H30M PRN IV PATENCY; Start 11/18/18 at 11:10; Stop 11/18/18 at 23:09; Status DC Info (PHARMACY MONITORING -- do not chart) 1 each PRN DAILY PRN MC SEE COMMENTS ; Start 11/18/18 at 11:15 Active Scripts Active Colace (Docusate Sodium) 100 Mg Capsule 1 Cap PO BID Reported Calcium Acetate 667 Mg Tablet 3 Tab PO TIDWMEALS Clonidine Hcl 0.3 Mg Tablet 0.3 Mg TD DAILY Loperamide (Loperamide Hcl) 2 Mg Capsule 2 Mg PO Q4HRS Meclizine Hcl 12.5 Mg Tablet 12.5 Mg PO Q8HRS PRN Zyrtec (Cetirizine Hcl) 10 Mg Tablet 1 Tab PO DAILY Protonix (Pantoprazole Sodium) 20 Mg Tablet.dr 40 Mg PO DAILY Zyrtec (Cetirizine Hcl) 10 Mg Tablet 1 Tab PO DAILY Cymbalta (Duloxetine Hcl) 60 Mg Capsule.dr 60 Mg PO BID Norvasc (Amlodipine Besylate) 10 Mg Tablet 10 Mg PO DAILY Systane 0.3-0.4% Eye Drops (Propylene Glycol/Peg 400) 15 Ml Drops 1 Drop EACHEYE QID Women's Laxative (Bisacodyl) 5 Mg Tablet 1 Tab PO UD Clonazepam 0.5 Mg Tablet 1 Tab PO BID Oxycontin (Oxycodone HCl) 20 Mg Tab.er.12h 10 Mg PO BID Trazodone Hcl 100 Mg Tablet 1 Tab PO QHS Zoloft (Sertraline Hcl) 100 Mg Tablet 2 Tab PO DAILY Tylenol (Acetaminophen) 325 Mg Tablet 650 Mg PO Q6HRS Reglan (Metoclopramide Hcl) 10 Mg Tablet 5 Mg PO TID Nitrostat (Nitroglycerin) 0.4 Mg Tab.subl 0.4 Mg SL PRN Q10MIN PRN Nephro-Dangelo Tablet (Folic Acid/Vitamin B Comp W-C) 0.8 Mg Tablet 1 Tab PO DAILY Miralax (Polyethylene Glycol 3350) 17 Gm Powd.pack 1 Packet PO BID Levothyroxine Sodium 75 Mcg Tablet 1 Tab PO DAILY Calcium Carbonate 650 Mg Tablet 1,000 Mg PO QHS Vitals/I & O Vital Sign - Last 24 Hours 11/18/18 11/18/18 11/18/18 11/18/18 19:55 20:00 20:53 23:41 Temp 98.2 98.2 Pulse 61 Resp 20 16 B/P (MAP) 131/73 (92) Pulse Ox 97 97 O2 Delivery Nasal Cannula Nasal Cannula Nasal Cannula Nasal Cannula O2 Flow Rate 2.0 2.0 2.0 2.0 11/19/18 11/19/18 11/19/18 11/19/18 01:00 03:44 07:00 08:00 Temp 98.0 98.1 98.0 98.1 Pulse 67 68 Resp 18 19 B/P (MAP) 142/67 (92) 145/82 (103) Pulse Ox 97 96 98 O2 Delivery Nasal Cannula Nasal Cannula Nasal Cannula Nasal Cannula O2 Flow Rate 2.0 2.0 2.0 2.0 11/19/18 11/19/18 11/19/18 08:34 08:35 08:35 Pulse 67 67 B/P (MAP) 142/67 142/67 O2 Delivery Room Air Intake and Output 11/18/18 11/18/18 11/19/18 14:59 22:59 06:59 Intake Total 480 ml Balance 480 ml Problem List Problems Medical Problems: (1) Chest pain Status: Acute (2) Congestive heart failure Status: Acute Plan of Care: Continue current Tx, AIXA Caldwell MD Nov 19, 2018 11:43
[2018-11-19] MEDS: METHYLNALTREXONE 12 MG/0.6 ML VIAL. SQ SCH (11:59)
[2018-11-19 15:00] VITALS: BP 136/70
[2018-11-19 19:49] VITALS: BP 138/70
[2018-11-19] MEDS: traZODone 100 MG TABLET. PO SCH (21:14)
[2018-11-19] MEDS: CALCIUM CARBONATE 500 MG TABLET PO SCH (21:14)
[2018-11-19 23:51] VITALS: BP 130/71
--- NOTE | 2018-11-20 01:03 | PN ---
DATE: 11/19/2018 SUBJECTIVE: The patient is resting, slightly propped up in bed, in no apparent respiratory distress. He apparently had multiple loose bowel movements yesterday. Denied any abdominal pain. PHYSICAL EXAMINATION: GENERAL: When I examined him this morning, he looked well and was clearly in no apparent respiratory distress. VITAL SIGNS: Stable. ABDOMEN: Distended, but soft, nontender. PLAN: To continue with Relistor on a daily basis today and tomorrow and hopefully we can discharge him back to [facility] tomorrow on Movantik and then Relistor orally. WAYLON CONCEPCION MD DR: [email or web address]/joe JOB#: [id number] / [id number]
[2018-11-20 07:10] VITALS: BP 144/78
[2018-11-20] MEDS: LEVOTHYROXINE 75 MCG TABLET PO SCH (07:23)
[2018-11-20] MEDS: FOLIC/VIT B COMP W-C (RENAL) TABLET. PO SCH (08:17)
[2018-11-20] MEDS: CALCIUM ACETATE 667 MG CAPSULE PO SCH (08:17)
[2018-11-20] MEDS: SERTRALINE 50 MG TABLET. PO SCH (08:17)
[2018-11-20] MEDS: clonazePAM 0.5 MG TABLET PO SCH (08:17)
[2018-11-20] MEDS: oxyCODONE ER 10 MG TAB.ER.12H PO SCH (08:18)
[2018-11-20] MEDS: DULoxetine HCL 30 MG CAPSULE.DR PO SCH (08:18)
[2018-11-20] MEDS: DOCUSATE SODIUM 100 MG CAPSULE. PO SCH (08:18)
[2018-11-20] MEDS: CETIRIZINE HCL 10 MG TABLET. PO SCH (08:19)
[2018-11-20] MEDS: cloNIDine HCL 0.3 MG TABLET PO SCH (08:19)
[2018-11-20] MEDS: PANTOPRAZOLE 40 MG TABLET.DR. PO SCH (08:19)
[2018-11-20] MEDS: amLODIPine BESYLATE 10 MG TABLET PO SCH (08:19)
[2018-11-20] MEDS: METOCLOPRAMIDE 10 MG TABLET. PO SCH (08:20)
[2018-11-20] MEDS: BISACODYL 5 MG TABLET.DR. PO SCH (08:20)
[2018-11-20] MEDS: POLYETHYLENE GLYCOL 3350 17 GM PACKET. PO SCH (08:20)
[2018-11-20] MEDS: POLYVINYL ALCOHOL 1.4% OPHTH SOLUTION 15ML BOTTLE. OU SCH (08:20)
[2018-11-20] MEDS: METHYLNALTREXONE 12 MG/0.6 ML VIAL. SQ SCH (08:51)
[2018-11-20] MEDS ORDERED: NALO25TA2 PO (09:20)
[2018-11-20] MEDS ORDERED: LINZESS290 MCG PO (09:21)
--- NOTE | 2018-11-20 09:22 | SNU/HH DC ---
DISCHARGE ORDERS DISCHARGE INFORMATION: FINAL DIAGNOSIS Problems Medical Problems: (1) Chest pain Status: Acute (2) Congestive heart failure Status: Acute CONDITION ON DISCHARGE: Stable CODE STATUS: Code Status: Full CARE HOME: SNF STAY <30 DAYS: No POST DISCHARGE ORDERS: ACTIVITY ORDERS: Activity as tolerated DIET AFTER DISCHARGE: Renal CHECKS AFTER DISCHARGE: CHECKS AFTER DISCHARGE: Check blood press - daily, Check blood sugar, ac/hs TREATMENT/EQUIPMENT ORDERS: ADAPTIVE EQUIPMENT NEEDED: Wheelchair DISCHARGE MEDICATIONS: Home Meds Active Scripts Linaclotide (LINZESS) 290 Mcg Capsule, 290 MCG PO DAILY07 for IRRITABLE BOWEL for 30 Days, #30 CAP 5 Refills Prov:WAYLON CONCEPCION MD 11/20/18 Naloxegol Oxalate (Movantik) 25 Mg Tablet, 25 MG PO DAILY PRN for oic for 30 Days, #30 TAB 5 Refills Prov:WAYLON CONCEPCION MD 11/20/18 Docusate Sodium (COLACE) 100 Mg Capsule, 1 CAP PO BID, #30 CAP Prov:WAYLON CONCEPCION MD 11/05/16 Reported Medications Calcium Acetate (CALCIUM ACETATE) 667 Mg Tablet, 3 TAB PO TIDWMEALS for DIALYSIS PATIENTS, CAP 11/15/18 Clonidine Hcl (CLONIDINE HCL) 0.3 Mg Tablet, 0.3 MG TD DAILY for High BP, TAB 11/14/18 Loperamide Hcl (LOPERAMIDE) 2 Mg Capsule, 2 MG PO Q4HRS for Constipation, CAP 11/14/18 Meclizine Hcl (MECLIZINE HCL) 12.5 Mg Tablet, 12.5 MG PO Q8HRS PRN for NAUSEA/ VOMITING, TAB 11/14/18 Cetirizine Hcl (ZYRTEC) 10 Mg Tablet, 1 TAB PO DAILY for Itching, #30 TAB 2 Refills 11/14/18 Pantoprazole Sodium (PROTONIX) 20 Mg Tablet.dr, 40 MG PO DAILY for GERD, TAB 11/14/18 Duloxetine Hcl (CYMBALTA) 60 Mg Capsule.dr, 60 MG PO BID for antidepressant, CAP 07/25/18 Amlodipine Besylate (NORVASC) 10 Mg Tablet, 10 MG PO DAILY for htn, TAB 07/25/18 Propylene Glycol/Peg 400 (SYSTANE 0.3-0.4% EYE DROPS) 15 Ml Drops, 1 DROP EACHEYE QID for dryness, #30 ML 5 Refills 07/25/18 Bisacodyl (WOMEN'S LAXATIVE) 5 Mg Tablet, 1 TAB PO UD for constipation, #2 TAB 07/25/18 Clonazepam (CLONAZEPAM) 0.5 Mg Tablet, 1 TAB PO BID for anxiety, #60 TAB 1 Refill 07/25/18 Oxycodone Hcl (OXYCONTIN) 20 Mg Tab.er.12h, 10 MG PO BID for PAIN, TAB 07/25/18 Trazodone Hcl (TRAZODONE HCL) 100 Mg Tablet, 1 TAB PO QHS for insomnia, #30 TAB 1 Refill 07/25/18 Sertraline Hcl (ZOLOFT) 100 Mg Tablet, 2 TAB PO DAILY for Depression, #30 TAB 5 Refills 10/29/16 Acetaminophen (TYLENOL) 325 Mg Tablet, 650 MG PO Q6HRS for PAIN 10/29/16 Metoclopramide Hcl (REGLAN) 10 Mg Tablet, 5 MG PO TID for DYSPEPSIA, #60 TAB 0 Refills 10/29/16 Nitroglycerin (NITROSTAT) 0.4 Mg Tab.subl, 0.4 MG SL PRN Q10MIN PRN for CHEST PAIN, BOTTLE 10/29/16 Folic Acid/Vitamin B Comp W-C (NEPHRO-FRANCISCO TABLET) 0.8 Mg Tablet, 1 TAB PO DAILY , #30 TAB 5 Refills 10/29/16 Polyethylene Glycol 3350 (MIRALAX) 17 Gm Powd.pack, 1 PACKET PO BID for CONSTIPATION, #30 PACKET 3 Refills 10/29/16 Levothyroxine Sodium (LEVOTHYROXINE SODIUM) 75 Mcg Tablet, 1 TAB PO DAILY for hypothyroid, #30 TAB 5 Refills 10/29/16 Calcium Carbonate (CALCIUM CARBONATE) 650 Mg Tablet, 1000 MG PO QHS 10/29/16 Discontinued Reported Medications Cetirizine Hcl (ZYRTEC) 10 Mg Tablet, 1 TAB PO DAILY for allergies, #30 TAB 2 Refills 07/25/18 WAYLON CONCEPCION MD Nov 20, 2018 09:22
--- NOTE | 2018-11-20 10:37 | PDOC ---
Subjective: Subjective: Stooling w/ Relistor. Swallowing better - tolerated rice last night which was previously unable to do. Says gets to discharge today. Objective: Vital Signs: Vital Signs Date Time Temp Pulse Resp B/P (MAP) Pulse Ox O2 Delivery O2 Flow Rate FiO2 11/20/18 08:19 68 144/78 11/20/18 08:18 97 Nasal Cannula 2.0 11/20/18 07:10 98.4 20 98.4 Imaging: EGD 11/17 E--Healed, baseline grade indeterminate, reflux esophagitis distally. No discrete stricture. G--Some retained food (NPO from midnight) consistent with some delay in gastric emptying. Multiple petechiae proximal body suggestive of upward prolapse during reflux/vomiting. D--Normal to second portion. --Empirically dilated with 52F Bermudez; no resistance, no blood on dilator after withdrawal. IMP: GERD Probably element of gastroparesis. CT A/P 11/17 IMPRESSION: 1. Increased gas and stool throughout the colon extending to the rectum without evidence of a focal obstructive process. The findings are compatible with an atonic colon. 2. Mild bibasilar atelectasis. 3. Minimal interlobular septal thickening in the lung bases, suggesting low- grade interstitial edema. 4. Atrophic scarred right kidney. 5. Additional chronic findings as described above. Barium Swallow 11/17 IMPRESSION: 1. No obstructing esophageal process is identified. 2. Mildly decreased esophageal peristalsis with mild tertiary contractions in the distal esophagus. PE: GEN: NAD LUNGS: CTAB HEART: RRR ABD: stable mild distention, non-tender, BS+ NEURO/PSYCH: A & O 3 A/P: Dysphagia - better; h/o GERD, s/p empiric esophageal dilation (52Fr), dysmotility Colonic inertia/narcotic bowel - stooling w/ Relistor -- DC per primary. Consider GES at some point - already on Reglan Continue PPI. Ideally could continue Relistor PRN as outpt. Also has Miralax. Consider daily suppository/anorectal stimulation. CLAUDIA FERRARI Nov 20, 2018 10:37
[2018-11-20 11:20] VITALS: BP 134/67
--- NOTE | 2018-11-20 12:42 | NUR ---
SRAVANTHI following pt. SRAVANTHI phoned and faxed orders to [facility]. Pt will transport via facility arranged w/c van shortly. Packet on chart. SRAVANTHI left a voice mail to pt's brother regarding dc plan. Discussed with RN.
--- NOTE | 2018-11-20 14:29 | PDOC ---
Renal-Progress Notes Subjective Notes Notes FEELING BETTER History of Present Illness Hx of present illness STABLE Vitals Vitals Vital Signs Date Time Temp Pulse Resp B/P (MAP) Pulse Ox O2 Delivery O2 Flow Rate FiO2 11/20/18 11:20 97.7 59 20 134/67 (89) 95 Nasal Cannula 2.0 97.7 Weight Weight [ ] I.O. Intake and Output Intake and Output 11/20/18 07:00 Intake Total 550 ml Output Total 0 ml Balance 550 ml Intake Oral 550 ml Output Urine Total 0 ml # Voids 1 # Bowel Movements 1 Review of Systems Constitutional: yes: alert, oriented Ears/Nose/Throat: Yes: no symptom reported Eyes: Yes: no symptom reported Pulmonary: Yes no symptom reported Cardiovascular: Yes no symptom reported Gastrointestional: Yes: no symptom reported Genitourinary: Yes: no symptom reported Musculoskeletal: Yes: no symptom reported Skin: Yes no symptom reported Psychiatric/Neurological: Yes: no symptom reported Endocrine: Yes: no symptom reported Physical Exam General Appearance: no apparent distress Skin: warm Respiratory: bilateral CTA Heart: S1S2 Abdomen: soft Genitourinary: bladder flat Extremities: pulses present Neurology: alert Musculoskeletal: Other Assessment Assessment IMP CHEST PAIN-MS RULED OUT HTN ANEMIA ESRD DYSPHAGIA-S/P ESOPHAGEAL DILATION ?GASTROPARESIS PLAN HD TOMORROW KELLY LOYA MD Nov 20, 2018 14:29
--- NOTE | 2018-11-20 19:12 | DS ---
DATE OF DISCHARGE: 11/20/2018 HOSPITAL COURSE: The patient is a 63-year-old male patient, a resident at [facility], who was admitted directly from the dialysis unit as he complained of chest pain. He has had 3 sets of cardiac enzymes that ruled out myocardial infarction and he has had an echocardiogram, which showed left ventricular ejection fraction of 50%. He was diagnosed with acute on chronic diastolic heart failure and he was continued with hemodialysis ultrafiltration. The switcher recommended left heart catheterization as an outpatient. He also continued to have nausea and dysphagia for which he underwent esophagogastroduodenoscopy and esophageal dilatation. He was found to have gastroesophageal reflux disease and probable element of gastroparesis. He continued to have severe constipation and a CT scan of the abdomen and pelvis showed that he has increased gas and stool throughout the colon extending to the rectum without evidence of focal obstructive process. The findings are compatible with an atonic colon. We did try to treat him with subcutaneous Relistor and has had multiple bowel movements and a decision was made to discharge him back to [facility] to continue with the Movantik for his opiate-induced constipation. Continue with hemodialysis as an outpatient. PHYSICAL EXAMINATION: GENERAL: When I saw him today, he looked well and was clearly in no apparent respiratory distress, pale, not jaundiced. No cyanosis or thyromegaly. No jugular venous distension. No limb edema. VITAL SIGNS: His heart rate was 68, blood pressure was 144/78, temperature was 98.4, respiratory rate was 20 and oxygen saturation was 97% on 2 liters of oxygen by nasal cannula. HEAD, EYES, EARS, NOSE AND THROAT: Showed normocephalic, atraumatic. NECK: Supple. HEART: Showed normal first and second sounds. No gallop, rub or murmur. CHEST: Clear to auscultation. No crepitation or rhonchi. ABDOMEN: Distended, soft, nontender. No guarding or rigidity. No organomegaly. All hernial orifices are intact. Bowel sounds normal. RECTAL: Showed that there is only soft stool in the rectal vault and the patient had actually multiple bowel movements this morning. LABORATORY DATA: His most recent white cell count was 4400, hemoglobin 12, hematocrit 36, MCV 99 and platelet count of 152,000. His chemistry is variable as he is hemodialysis dependent. His TSH was normal at 2.968. MEDICATIONS: He was discharged on Linzess 290 mcg capsules once daily, Movantik 25 mg once a day, Tylenol 650 mg every 6 hours, amlodipine besylate 10 mg once a day, bisacodyl once a day, calcium acetate 667 mg tablets, take 3 tablets 3 times a day with meals; calcium carbonate 1000 mg at bedtime, cetirizine for Zyrtec 10 mg once a day, clonazepam 0.5 mg twice a day, clonidine 0.3 mg daily, Colace 100 mg twice a day, duloxetine for Cymbalta 60 mg twice a day, Nephro-Dangelo 1 tablet once a day, levothyroxine sodium 75 mcg once a day, loperamide 2 mg every 4 hours as needed for diarrhea, meclizine 12.5 mg every 8 hours, metoclopramide 5 mg 3 times a day for dyspepsia, nitroglycerin 0.4 mg sublingually every 5 minutes x 3, OxyContin 10 mg twice a day, Protonix 40 mg daily, polyethylene glycol 17 g twice a day, Systane 1 drop to both eyes 4 times a day, sertraline for Zoloft 200 mg at bedtime and trazodone 100 mg at bedtime for insomnia. FINAL DISCHARGE DIAGNOSES: 1. Chest pain, myocardial infarction was ruled out. 2. Acute on chronic diastolic congestive heart failure, resolved. 3. End-stage renal disease, on hemodialysis on Tuesday, , Tuesday. 4. Dysphagia, status post esophageal dilatation. 5. Severe opioid-induced constipation, responded very well to Relistor injection. 6. Hypothyroidism. The patient is both clinically and biochemically euthyroid. 7. Hypertension, well controlled. 8. Anemia, normochromic normocytic, stable. WAYLON CONCEPCION MD DR: ADDIE/joe JOB#: [id number] / [id number]
== END 2018-11-20 19:00 | DRG 291 ==
LOC: ER 08:44 → 2 NORTH 11:15 → 6 SOUTH 11-17 12:54
PROVIDERS: ADMIT Internal Medicine; ATTEND Internal Medicine
PROC: 5A1D70Z Performance of Urinary Filtration, Intermittent, Less than 6 Hours Per Day (ICD-10-PCS; 2018-11-16)
PROC: 0D758ZZ Dilation of Esophagus, Via Natural or Artificial Opening Endoscopic (ICD-10-PCS; principal; 2018-11-17 13:00)
PROC: 5A1D70Z Performance of Urinary Filtration, Intermittent, Less than 6 Hours Per Day (ICD-10-PCS; 2018-11-18)
DX: I13.2 Hypertensive heart and chronic kidney disease with heart failure and with stage 5 chronic kidney disease, or end stage renal disease (principal); I50.33 Acute on chronic diastolic (congestive) heart failure; N18.6 End stage renal disease; G82.20 Paraplegia, unspecified; K22.4 Dyskinesia of esophagus; E78.00 Pure hypercholesterolemia, unspecified; G89.4 Chronic pain syndrome; E78.5 Hyperlipidemia, unspecified; E03.9 Hypothyroidism, unspecified; K59.03 Drug induced constipation; E11.22 Type 2 diabetes mellitus with diabetic chronic kidney disease; E11.43 Type 2 diabetes mellitus with diabetic autonomic (poly)neuropathy; T40.2X5A Adverse effect of other opioids, initial encounter; D64.9 Anemia, unspecified; I05.0 Rheumatic mitral stenosis; Q07.01 Arnold-Chiari syndrome with spina bifida; E66.9 Obesity, unspecified; R13.14 Dysphagia, pharyngoesophageal phase; F41.9 Anxiety disorder, unspecified; F32.9 Major depressive disorder, single episode, unspecified; G40.909 Epilepsy, unspecified, not intractable, without status epilepticus; K31.84 Gastroparesis; K21.0 Gastro-esophageal reflux disease with esophagitis; E21.3 Hyperparathyroidism, unspecified; Y92.89 Other specified places as the place of occurrence of the external cause; Z99.2 Dependence on renal dialysis; Z90.49 Acquired absence of other specified parts of digestive tract; Z90.5 Acquired absence of kidney; Z88.0 Allergy status to penicillin; Z88.2 Allergy status to sulfonamides; Z88.8 Allergy status to other drugs, medicaments and biological substances; Z79.899 Other long term (current) drug therapy; Z87.891 Personal history of nicotine dependence; Z82.3 Family history of stroke; Z82.49 Family history of ischemic heart disease and other diseases of the circulatory system; Z68.32 Body mass index [BMI] 32.0-32.9, adult
CPT/HCPCS: 36415; 43450; 71045; 72100; 74018; 74022; 74176; 74220; 80048; 80053; 80061; 83880; 84443; 84484; 85025; 85027; 87641; 93005; 93308; 93320; 93325; 96374; J0360; J1940; J2001; J2212; J2405; J2704; J7030; J8597; 92610; 99285-25

== ENCOUNTER 2018-12-26 04:58 | Inpatient (IN) | payer MEDICARE, OTHER ==
[~2018-12-26] VITALS: Ht 154.9 cm; Wt 83.1 kg
[~2018-12-26 04:58] MED LIST changes: +CLON0.3T TD; +LOPE2CAP PO; +MECL12.52 PO
[2018-12-26] MEDS ORDERED: cloNIDine HCL 0.1 MG TABLET PO ONE (05:15)
[2018-12-26] MEDS ORDERED: ONDANSETRON PF 4 MG/2 ML VIAL. IV ONE (05:15)
--- NOTE | 2018-12-26 05:25 | PHYS DOC ---
Past Medical History Past Medical History: Anemia, Anxiety, Depression, GERD, High Cholesterol, Hypertension, Renal Disease, Renal Failure Additional Past Medical Histor: spina bifida- paraplegia, thyroid disease, insomnia, Dialysis (TIFFANY CHATMAN Jr. DO) Past Surgical History: Appendectomy, Cholecystectomy Additional Past Surgical Histo: stoma to abdomen, L kidney removed, ? bladder removed, hiatal hernia (ITFFANY CHATMAN Jr. DO) Alcohol Use: None Drug Use: Marijuana (TIFFANY CHATMAN Jr. DO) Adult General Chief Complaint Chief Complaint: CHEST PAIN HPI HPI Patient is a 63-year-old male who presents with complaint of sharp, stabbing chest pain that started at about 1:00 this morning. Patient states that pain woke him from sleep. He does indicate that he has little bit of nausea. Patient rates the pain at an 8 out of 10. Patient states that nothing improves the pain. EMS reports that patient was given sublingual nitroglycerin but the patient had reported that pain was worsened. Patient denies any shortness of breath or diaphoresis. He states that nothing improves or worsens the pain. (TIFFANY CHATMAN Jr. DO) Review of Systems Review of Systems Constitutional: Denies fever or chills [] Respiratory: Denies cough or shortness of breath [] Cardiovascular: No additional information not addressed in HPI [] GI: Denies abdominal pain. Admits to nausea without vomiting or diarrhea [] Integument: Denies rash or skin lesions [] Neurologic: Complains of headache without focal weakness or sensory changes [] All other systems were reviewed and found to be within normal limits, except as documented in this note. (TIFFANY CHATMAN Jr. DO) Current Medications Current Medications Current Medications Medications (Trade) Dose Ordered Sig/Pema Start Time Stop Time Status Last Admin Dose Admin Clonidine HCl (Catapres) 0.2 mg 1X ONCE 12/26/18 05:15 12/26/18 05:17 DC 12/26/18 05:41 0.2 MG Morphine Sulfate (Morphine Sulfate) 2 mg PRN Q15MIN PRN 12/26/18 05:15 12/27/18 05:14 12/26/18 06:45 2 MG Ondansetron HCl (Zofran) 4 mg 1X ONCE 12/26/18 05:15 12/26/18 05:17 DC 12/26/18 05:42 4 MG (KRISTIE LEAHY MD) Allergies Allergies Allergies Coded Allergies Type Severity Reaction Last Updated Verified Sulfa (Sulfonamide Antibiotics) Allergy Intermediate 11/17/18 Yes amoxicillin Allergy Intermediate 11/17/18 Yes gabapentin Allergy Intermediate 11/17/18 Yes pregabalin Allergy Intermediate 11/17/18 Yes I S O L A T I O N *CONTACT* Allergy Unknown 11/17/18 Yes (KRISTIE LEAHY MD) Physical Exam Physical Exam Constitutional: Well developed, well nourished, no acute distress, non-toxic appearance. [] HENT: Normocephalic, atraumatic, bilateral external ears normal, oropharynx moist, no oral exudates, nose normal. [] Eyes: PERRLA, EOMI, conjunctiva normal, no discharge. [] Neck: Normal range of motion, no tenderness, supple, no stridor. [] Cardiovascular: Regular rate and rhythm[] Lungs & Thorax: Bilateral breath sounds clear to auscultation [] Abdomen: Bowel sounds normal, soft, no tenderness. [] Skin: Warm, dry, no erythema, no rash. [] Extremities: No tenderness, no cyanosis, no clubbing. [] Neurologic: Alert and oriented X 3, no focal deficits noted. [] (TIFFANY CHATMAN Jr. DO) Current Patient Data Vital Signs Vital Signs Date Time Temp Pulse Resp B/P (MAP) Pulse Ox O2 Delivery O2 Flow Rate FiO2 12/26/18 06:45 16 99 12/26/18 05:42 Nasal Cannula 12/26/18 05:41 78 215/105 12/26/18 04:58 98.1 3.0 98.1 (KRISTIE LEAHY MD) Lab Values Laboratory Tests Test 12/26/18 05:41 White Blood Count 6.0 x10^3/uL (4.0-11.0) Red Blood Count 3.57 x10^6/uL (4.30-5.70) L Hemoglobin 11.4 g/dL (13.0-17.5) L Hematocrit 35.4 % (39.0-53.0) L Mean Corpuscular Volume 99 fL (79-100) Mean Corpuscular Hemoglobin 32 pg (25-35) Mean Corpuscular Hemoglobin Concent 32 g/dL (31-37) Red Cell Distribution Width 15.6 % (11.5-14.5) H Platelet Count 143 x10^3/uL (140-400) Neutrophils (%) (Auto) 76 % (31-73) H Lymphocytes (%) (Auto) 15 % (24-48) L Monocytes (%) (Auto) 6 % (0-9) Eosinophils (%) (Auto) 2 % (0-3) Basophils (%) (Auto) 1 % (0-3) Neutrophils # (Auto) 4.6 x10^3uL (1.8-7.7) Lymphocytes # (Auto) 0.9 x10^3/uL (1.0-4.8) L Monocytes # (Auto) 0.4 x10^3/uL (0.0-1.1) Eosinophils # (Auto) 0.1 x10^3/uL (0.0-0.7) Basophils # (Auto) 0.0 x10^3/uL (0.0-0.2) D-Dimer (Latesha) < 0.27 ug/mlFEU Sodium Level 135 mmol/L (136-145) L Potassium Level 5.4 mmol/L (3.5-5.1) H Chloride Level 96 mmol/L (98-107) L Carbon Dioxide Level 28 mmol/L (21-32) Anion Gap 11 (6-14) Blood Urea Nitrogen 86 mg/dL (8-26) H Creatinine 8.0 mg/dL (0.7-1.3) H Estimated GFR (Cockcroft-Gault) 6.9 BUN/Creatinine Ratio 11 (6-20) Glucose Level 101 mg/dL (70-99) H Calcium Level 10.5 mg/dL (8.5-10.1) H Phosphorus Level 2.8 mg/dL (2.6-4.7) Magnesium Level 3.6 mg/dL (1.8-2.4) H Total Bilirubin 0.9 mg/dL (0.2-1.0) Aspartate Amino Transferase (AST) 9 U/L (15-37) L Alanine Aminotransferase (ALT) 15 U/L (16-63) L Alkaline Phosphatase 83 U/L (46-116) Troponin I Quantitative 0.069 ng/mL (0.000-0.055) ZH-Tsa-U-Type Natriuretic Peptide > 16962 pg/mL (0-124) H Total Protein 7.2 g/dL (6.4-8.2) Albumin 4.1 g/dL (3.4-5.0) Albumin/Globulin Ratio 1.3 (1.0-1.7) Lipase 98 U/L (73-393) Laboratory Tests 12/26/18 05:41 Laboratory Tests 12/26/18 05:41 (KRISTIE LEAHY MD) Lab Values Laboratory Tests Test 12/26/18 05:41 White Blood Count 6.0 x10^3/uL (4.0-11.0) Red Blood Count 3.57 x10^6/uL (4.30-5.70) L Hemoglobin 11.4 g/dL (13.0-17.5) L Hematocrit 35.4 % (39.0-53.0) L Mean Corpuscular Volume 99 fL (79-100) Mean Corpuscular Hemoglobin 32 pg (25-35) Mean Corpuscular Hemoglobin Concent 32 g/dL (31-37) Red Cell Distribution Width 15.6 % (11.5-14.5) H Platelet Count 143 x10^3/uL (140-400) Neutrophils (%) (Auto) 76 % (31-73) H Lymphocytes (%) (Auto) 15 % (24-48) L Monocytes (%) (Auto) 6 % (0-9) Eosinophils (%) (Auto) 2 % (0-3) Basophils (%) (Auto) 1 % (0-3) Neutrophils # (Auto) 4.6 x10^3uL (1.8-7.7) Lymphocytes # (Auto) 0.9 x10^3/uL (1.0-4.8) L Monocytes # (Auto) 0.4 x10^3/uL (0.0-1.1) Eosinophils # (Auto) 0.1 x10^3/uL (0.0-0.7) Basophils # (Auto) 0.0 x10^3/uL (0.0-0.2) Laboratory Tests 12/26/18 05:41 (TIFFANY CHATMAN Jr. DO) EKG EKG [] Interpretation Time: EKG demonstrates normal sinus rhythm with rate of 77. (TIFFANY CHATMAN Jr., DO) Radiology/Procedures Radiology/Procedures [] (TIFFANY CHATMAN Jr., DO) Impressions: Portable chest x-ray demonstrates some pulmonary venous congestion consistent with volume overload. (TIFFANY CHATMAN Jr., DO) Course & Med Decision Making Course & Med Decision Making Pertinent Labs and Imaging studies reviewed. (See chart for details) Patient moved to room upon arrival was evaluated by ER medical staff after which an IV was established and blood work drawn. A cardiac workup has been initiated on this patient and at this time, workup is pending and patient is being signed out to the oncoming ER physician Dr. Leahy at 6:00 AM. (TIFFANY CHATMAN Jr., DO) Course & Med Decision Making Patient requiring admission for further evaluation and treatment. Discussed with Dr. Luo who is in agreement with admission. Discussed findings and plan with patient and family, who acknowledge understanding and agreement. (KRISTIE LEAHY MD) Dragon Disclaimer Dragon Disclaimer This electronic medical record was generated, in whole or in part, using a voice recognition dictation system. (TIFFANY CHATMAN Jr., DO) Departure Departure Impression: Primary Impression: Chest pain, rule out acute myocardial infarction Additional Impressions: Hyperkalemia Chronic kidney disease with end stage renal failure on dialysis Musculoskeletal chest pain Disposition: ADMITTED INPATIENT (at 0 658) Admitting Physician: Geraldine Luo (Accepted admission at 0 657) (KRISTIE LEAHY MD) Referrals: GERALDINE LUO MD (PCP) Problem Qualifiers TIFFANY CHATMAN Jr., DO December 26, 2018 05:25 KRISTIE LEAHY MD December 26, 2018 06:48
[2018-12-26] MEDS: MORPHINE SULFATE 2 MG/ML VIAL. IV/SQ PRN ×2 (05:42→06:45)
[2018-12-26 05:54] LABS: BASO % 1 % (0-3); EOS # 0.1 x10^3/uL (0.0-0.7); EOS % 2 % (0-3); HEMATOCRIT 35.4 % (39.0-53.0); HEMOGLOBIN 11.4 g/dL (13.0-17.5); LYMPH # 0.9 x10^3/uL (1.0-4.8); LYMPH % 15 % (24-48); MEAN CORPUSCULAR HEMOGLOBIN 32 pg (25-35); MEAN CORPUSCULAR HGB CONC 32 g/dL (31-37); MEAN CORPUSCULAR VOLUME 99 fL (79-100); MONO # 0.4 x10^3/uL (0.0-1.1); MONO % 6 % (0-9); NEUT # 4.6 x10^3uL (1.8-7.7); NEUT % 76 % (31-73); PLATELET COUNT 143 x10^3/uL (140-400); RED BLOOD COUNT 3.57 x10^6/uL (4.30-5.70); RED CELL DISTRIBUTION WIDTH 15.6 % (11.5-14.5)
[2018-12-26 06:02] LABS: CALCIUM 10.5 mg/dL (8.5-10.1); GFR 6.9; POTASSIUM 5.4 mmol/L (3.5-5.1)
[2018-12-26 06:05] LABS: MAGNESIUM 3.6 mg/dL (1.8-2.4); PHOSPHORUS 2.8 mg/dL (2.6-4.7)
--- NOTE | 2018-12-26 06:05 | RAD ---
EXAM: CHEST 1 VIEW History: Chest pain COMPARISON: 11/16/2018 TECHNIQUE: Single portable radiograph of the chest FINDINGS: Low lung volumes and technique accentuates heart size and pulmonary vascularity. Mild prominent bilateral interstitial lung markings could The costophrenic sulci are clear and well demarcated. IMPRESSION: Mild prominent bilateral interstitial lung markings likely mild congestive changes. Electronically signed by: Efe Barton MD (12/26/2018 6:02 AM) [facility]
[2018-12-26 06:09] LABS: ALBUMIN 4.1 g/dL (3.4-5.0); ALBUMIN/GLOBULIN RATIO 1.3 (1.0-1.7); TOTAL BILIRUBIN 0.9 mg/dL (0.2-1.0); TOTAL PROTEIN 7.2 g/dL (6.4-8.2)
--- NOTE | 2018-12-26 06:57 | EKG ---
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
[2018-12-26 08:30] VITALS: BP 200/85
[2018-12-26] MEDS ORDERED: hydrALAZINE 25 MG TABLET PO SCH ×2 (09:00→14:00)
[2018-12-26] MEDS ORDERED: BISA-42 PO (09:19)
[2018-12-26] MEDS ORDERED: CALC500T31 PO (09:19)
[2018-12-26] MEDS ORDERED: HYDR-2868 PO (09:19)
[2018-12-26] MEDS ORDERED: FLUT9.9S NS (09:19)
[2018-12-26] MEDS ORDERED: MAGN296S9 PO (09:19)
[2018-12-26] MEDS ORDERED: OXYC1TAB15 PO (09:23)
[2018-12-26] MEDS ORDERED: NIFE60TA PO (09:23)
[2018-12-26] MEDS ORDERED: ONDA4TAB12 PO (09:27)
[2018-12-26] MEDS ORDERED: TRAM50TA PO (09:27)
[2018-12-26] MEDS ORDERED: METH150T PO (09:27)
--- NOTE | 2018-12-26 09:27 | NUR ---
IP: Pt has a hx of + mrsa screen on 11/14/18. Pt to be in contact precautions until there are 2 negative screens 7 days apart.
[2018-12-26] MEDS ORDERED: NON FORMULARY ITEM (Naloxegol Oxalate (Movantik) 25 MG) PO PRN (09:45)
[2018-12-26] MEDS ORDERED: traMADol 50 MG TABLET PO PRN (09:45)
[2018-12-26] MEDS ORDERED: NITROGLYCERIN SUBLINGUAL 0.4 MG BOTTLE OF 25. SL PRN (09:45)
[2018-12-26] MEDS ORDERED: ACETAMINOPHEN 325 MG TABLET. PO PRN (09:45)
[2018-12-26] MEDS ORDERED: MECLIZINE HCL 12.5 MG TABLET. PO PRN (10:15)
[2018-12-26] MEDS ORDERED: MAGNESIUM CITRATE 296 ML SOLUTION. PO PRN (10:15)
[2018-12-26] MEDS ORDERED: LOPERAMIDE 2 MG CAPSULE PO PRN (10:15)
--- NOTE | 2018-12-26 10:15 | HP ---
ADMIT DATE: 12/26/2018 NO DICTATION. WAYLON CONCEPCION MD DR: Toribio JOB#: [id number] / [id number]
[2018-12-26] MEDS: PANTOPRAZOLE 40 MG TABLET.DR. PO SCH (10:55)
[2018-12-26] MEDS: FOLIC/VIT B COMP W-C (RENAL) TABLET. PO SCH (10:55)
[2018-12-26] MEDS: DOCUSATE SODIUM 100 MG CAPSULE. PO SCH ×2 (10:56→21:51)
[2018-12-26] MEDS: DULoxetine HCL 30 MG CAPSULE.DR PO SCH ×2 (10:56→21:50)
[2018-12-26] MEDS: clonazePAM 0.5 MG TABLET PO SCH ×2 (10:56→21:56)
[2018-12-26] MEDS: oxyCODONE ER 10 MG TAB.ER.12H PO SCH ×2 (10:56→21:52)
[2018-12-26] MEDS: LEVOTHYROXINE 75 MCG TABLET PO SCH (10:57)
[2018-12-26] MEDS: CETIRIZINE HCL 10 MG TABLET. PO SCH (10:57)
[2018-12-26] MEDS: POLYVINYL ALCOHOL 1.4% OPHTH SOLUTION 15ML BOTTLE. OU SCH ×5 (10:58→21:00)
[2018-12-26] MEDS: POLYETHYLENE GLYCOL 3350 17 GM PACKET. PO SCH ×2 (10:58→21:51)
[2018-12-26 11:00] VITALS: BP 177/84
[2018-12-26] MEDS ORDERED: cloNIDine TTS-3 1 PATCH PATCH.TDWK TD SCH (11:00)
--- NOTE | 2018-12-26 11:18 | PDOC2 ---
CONSULT Date of Consult Date of Consult DATE: 12/26/18 TIME: 11:15 Reason for Consult Reason for Consult: CHEST PAIN, HIGH K AND ESRD Referring Physician Referring Physician: CARLENE Identification/Chief Complaint Chief Complaint CHEST PAIN Source Source: Chart review, Patient History of Present Illness Reason for Visit: THIS IS A 63 YR OLD ESRD PT WITH CHEST PAIN WHICH STARTED EARLY THIS AM WITH SOME ASSOCIATED SOB. HE HAS OP HD ON TTS. LABS SHOWED MILD HYPERKALEMIA, HYPONATREMIA AND OTHERWISE C/W ESRD. NO OTHER HX EXCEPT SOME RETENTION DUE TO SPINA BIFIDA HX. HE HAS AN ARM AV ACCESS FOR HIS DIALYSIS. Past Medical History Cardiovascular: HTN CENTRAL NERVOUS SYSTEM: Seizure, Other GI: GERD Heme/Onc: Anemia NOS Psych: Other Musculoskeletal: Other Renal/: Chronic renal failure, Other Endocrine: Hypothyroidism, Hyperparathyroidism Past Surgical History Past Surgical History: Appendectomy, Cholecystectomy, Hernia Repair, Other Family History Family History: Hypertension, Stroke Social History ALCOHOL: none Drugs: None Lives: Alf Current Problem List Problem List Problems Medical Problems: (1) Chest pain Status: Acute (2) Chronic kidney disease with end stage renal failure on dialysis Status: Acute (3) Hyperkalemia Status: Acute (4) Musculoskeletal chest pain Status: Acute Current Medications Current Medications Current Medications Morphine Sulfate (Morphine Sulfate) 2 mg PRN Q15MIN PRN IV/SQ PAIN GREATER THAN 3/10 Last administered on 12/26/18at 06:45; Start 12/26/18 at 05:15; Stop 12/27/18 at 05:14 Ondansetron HCl (Zofran) 4 mg 1X ONCE IV Last administered on 12/26/18at 05:42; Start 12/26/18 at 05:15; Stop 12/26/18 at 05:17; Status DC Clonidine HCl (Catapres) 0.2 mg 1X ONCE PO Last administered on 12/26/18at 05:41; Start 12/26/18 at 05:15; Stop 12/26/18 at 05:17; Status DC Nifedipine (Procardia Xl) 60 mg BID PO Last administered on 12/26/18at 09:38; Start 12/26/18 at 09:00 Hydralazine HCl (Apresoline) 25 mg TID PO Last administered on 12/26/18at 09:38; Start 12/26/18 at 09:00 Acetaminophen (Tylenol) 650 mg PRN Q6HRS PRN PO MILD PAIN / TEMP; Start 12/26/18 at 09:45 Bisacodyl (Dulcolax Tab) 10 mg DAILY PO ; Start 12/27/18 at 09:00 Calcium Carbonate/ Glycine (Oscal) 1,000 mg TIDACHC PO ; Start 12/26/18 at 11:30 Cetirizine HCl (ZyrTEC) 10 mg DAILY PO Last administered on 12/26/18at 10:57; Start 12/26/18 at 10:00 Clonazepam (KlonoPIN) 0.5 mg BID PO Last administered on 12/26/18at 10:56; Start 12/26/18 at 10:00 Clonidine HCl (Catapres) 0.3 mg WEEKLY FT ; Start 01/02/19 at 09:00; Stop 01/02/19 at 09:00; Status DC Docusate Sodium (Colace) 100 mg BID PO Last administered on 12/26/18at 10:56; Start 12/26/18 at 10:00 Vitamin B Complex/ Vitamin C (Litzy-Dangelo) 1 tab DAILY PO Last administered on 12/26/18at 10:55; Start 12/26/18 at 10:00 Levothyroxine Sodium (Synthroid) 75 mcg DAILY PO Last administered on 12/26/18at 10:57; Start 12/26/18 at 10:00 Metoclopramide HCl (Reglan) 5 mg TID PO ; Start 12/26/18 at 14:00 Nitroglycerin (Nitrostat) 0.4 mg PRN Q10MIN PRN SL CHEST PAIN; Start 12/26/18 at 09:45 Ondansetron HCl (Zofran Odt) 4 mg PRN Q6HRS PRN PO NAUSEA; Start 12/26/18 at 09:45 Oxycodone/ Acetaminophen (Percocet 5/325) 1 tab PRN Q4HRS PRN PO PAIN; Start 12/26/18 at 09:45 Tramadol HCl (Ultram) 50 mg PRN Q6HRS PRN PO PAIN; Start 12/26/18 at 09:45 Trazodone HCl (Desyrel) 100 mg QHS PO ; Start 12/26/18 at 21:00 Calcium Acetate (Phoslo) 2,001 mg TIDWMEALS PO ; Start 12/26/18 at 12:00 Duloxetine HCl (Cymbalta) 60 mg BID PO Last administered on 12/26/18at 10:56; Start 12/26/18 at 10:00 Fluticasone Propionate (Flonase) 2 spray DAILY NS ; Start 12/27/18 at 09:00 Hydralazine HCl (Apresoline) 25 mg TID PO ; Start 12/26/18 at 14:00 Non-Formulary Medication (Linaclotide (Linzess)) 290 mcg DAILY07 PO ; Start 12/27/18 at 07:00; Status UNV Loperamide HCl (Imodium) 4 mg PRN DAILY PRN PO DIARRHEA; Start 12/26/18 at 10:15 Magnesium Citrate (Citroma) 296 ml PRN DAILY PRN PO CONSTIPATION; Start 12/26/18 at 10:15 Meclizine HCl (Antivert) 12.5 mg PRN Q8HRS PRN PO DIZZINESS; Start 12/26/18 at 10:15 Non-Formulary Medication (Methylnaltrexone [place] (Relistor)) 150 mg DAILY PO ; Start 12/27/18 at 09:00; Status UNV Non-Formulary Medication (Naloxegol Oxalate (Movantik)) 25 mg DAILY PRN PO oic; Start 12/26/18 at 09:45; Status UNV Non-Formulary Medication (Nifedipine (Procardia Xl)) 1 tab BID PO ; Start 12/26/18 at 21:00; Status UNV Oxycodone HCl (OxyCONTIN) 10 mg Q12HR PO Last administered on 12/26/18at 10:56; Start 12/26/18 at 10:30 Pantoprazole Sodium (Protonix) 40 mg DAILYAC PO Last administered on 12/26/18at 10:55; Start 12/26/18 at 10:30 Polyethylene Glycol (miraLAX PACKET) 17 gm BID PO Last administered on 12/26/18at 10:58; Start 12/26/18 at 10:30 Artificial Tears (Artificial Tears) 1 drop QID OU Last administered on 12/26/18at 10:58; Start 12/26/18 at 10:30 Sertraline HCl (Zoloft) 200 mg DAILY PO ; Start 12/26/18 at 11:00 Clonidine HCl (Catapres Tts-3) 1 patch WEEKLY TD ; Start 12/26/18 at 11:00; Stop 12/26/18 at 11:00; Status DC Clonidine HCl (Catapres Tts-3) 1 patch WEEKLY TD ; Start 01/01/19 at 09:00 Active Scripts Active Linzess (Linaclotide) 290 Mcg Capsule 290 Mcg PO DAILY07 30 Days Movantik (Naloxegol Oxalate) 25 Mg Tablet 25 Mg PO DAILY PRN 30 Days Colace (Docusate Sodium) 100 Mg Capsule 1 Cap PO BID Reported Ondansetron Odt (Ondansetron) 4 Mg Tab.rapdis 1 Tab PO PRN Q6HRS PRN Tramadol Hcl 50 Mg Tablet 50 Mg PO Q6HRS PRN Relistor (Methylnaltrexone [place]) 150 Mg Tablet 150 Mg PO DAILY Procardia Xl (Nifedipine) 60 Mg Tab.er.24 1 Tab PO BID Percocet 5-325 Mg Tablet (Oxycodone/Acetaminophen) 1 Each Tablet 1 Tab PO PRN Q4HRS PRN Magnesium Citrate 296 Ml Solution 296 Ml PO PRN DAILY PRN Hydralazine Hcl 25 Mg Tablet 1 Tab PO TID Flonase Allergy Relief (Fluticasone Propionate) 9.9 Ml [place].susp 2 Sprays NS DAILY Calcium Carbonate 500 Mg Tablet 1,000 Mg PO TIDACHC Dulcolax (Bisacodyl) 5 Mg Tablet.dr 10 Mg PO DAILY Calcium Acetate 667 Mg Tablet 3 Tab PO TIDWMEALS Clonidine Hcl 0.3 Mg Tablet 0.3 Mg TD WEEKLY Loperamide (Loperamide Hcl) 2 Mg Capsule 4 Mg PO PRN DAILY PRN Meclizine Hcl 12.5 Mg Tablet 12.5 Mg PO Q8HRS PRN Zyrtec (Cetirizine Hcl) 10 Mg Tablet 1 Tab PO DAILY Protonix (Pantoprazole Sodium) 20 Mg Tablet.dr 40 Mg PO DAILY Cymbalta (Duloxetine Hcl) 60 Mg Capsule.dr 60 Mg PO BID Systane 0.3-0.4% Eye Drops (Propylene Glycol/Peg 400) 15 Ml Drops 1 Drop EACHEYE QID Clonazepam 0.5 Mg Tablet 1 Tab PO BID Oxycontin (Oxycodone HCl) 20 Mg Tab.er.12h 10 Mg PO BID Trazodone Hcl 100 Mg Tablet 1 Tab PO QHS Zoloft (Sertraline Hcl) 100 Mg Tablet 2 Tab PO DAILY Tylenol (Acetaminophen) 325 Mg Tablet 650 Mg PO PRN Q6HRS PRN Reglan (Metoclopramide Hcl) 10 Mg Tablet 5 Mg PO TID Nitrostat (Nitroglycerin) 0.4 Mg Tab.subl 0.4 Mg SL PRN Q10MIN PRN Nephro-Dangelo Tablet (Folic Acid/Vitamin B Comp W-C) 0.8 Mg Tablet 1 Tab PO DAILY Miralax (Polyethylene Glycol 3350) 17 Gm Powd.pack 1 Packet PO BID Levothyroxine Sodium 75 Mcg Tablet 1 Tab PO DAILY Allergies Allergies: Coded Allergies: Sulfa (Sulfonamide Antibiotics) (Verified Allergy, Intermediate, 11/17/18) amoxicillin (Verified Allergy, Intermediate, 11/17/18) gabapentin (Verified Allergy, Intermediate, 11/17/18) pregabalin (Verified Allergy, Intermediate, 11/17/18) I S O L A T I O N *CONTACT* (Verified Allergy, Unknown, 11/17/18) mrsa ROS General: YES: Fatigue, Malaise PSYCHOLOGICAL ROS: YES: Anxiety, Depression Eyes: Yes Decreased vision ALLERGY AND IMMUNOLOGY: YES: Seasonal Allergies Respiratory: YES: Cough, Shortness of breath Cardiovascular: yes Chest Pain Gastrointestinal: Yes Constipation Genitourinary: YES Other (ANURIA) Musculoskeletal: Yes Muscular Weakness Neurological: Yes Weakness Skin: Yes Dry Skin Physical Exam General: Alert, Oriented X3, Cooperative, No acute distress HEENT: Atraumatic, PERRLA, EOMI Lungs: Clear to auscultation Heart: Regular rate, Normal S1, Normal S2 Abdomen: Normal bowel sounds, Soft, No tenderness Extremities: No clubbing, No cyanosis Skin: No breakdown Neuro: Normal speech, Sensation intact Psych/Mental Status: Mental status NL, Mood NL MUSCULOSKELETAL: No joint tenderness, No deformity, No swelling Vitals VITALS Vital Signs Date Time Temp Pulse Resp B/P (MAP) Pulse Ox O2 Delivery O2 Flow Rate FiO2 12/26/18 10:56 Nasal Cannula 4.0 12/26/18 09:38 66 200/85 12/26/18 08:30 14 97 12/26/18 08:30 97.2 97.2 Labs Labs Laboratory Tests Test 12/26/18 05:41 White Blood Count 6.0 x10^3/uL (4.0-11.0) Red Blood Count 3.57 x10^6/uL (4.30-5.70) Hemoglobin 11.4 g/dL (13.0-17.5) Hematocrit 35.4 % (39.0-53.0) Mean Corpuscular Volume 99 fL (79-100) Mean Corpuscular Hemoglobin 32 pg (25-35) Mean Corpuscular Hemoglobin Concent 32 g/dL (31-37) Red Cell Distribution Width 15.6 % (11.5-14.5) Platelet Count 143 x10^3/uL (140-400) Neutrophils (%) (Auto) 76 % (31-73) Lymphocytes (%) (Auto) 15 % (24-48) Monocytes (%) (Auto) 6 % (0-9) Eosinophils (%) (Auto) 2 % (0-3) Basophils (%) (Auto) 1 % (0-3) Neutrophils # (Auto) 4.6 x10^3uL (1.8-7.7) Lymphocytes # (Auto) 0.9 x10^3/uL (1.0-4.8) Monocytes # (Auto) 0.4 x10^3/uL (0.0-1.1) Eosinophils # (Auto) 0.1 x10^3/uL (0.0-0.7) Basophils # (Auto) 0.0 x10^3/uL (0.0-0.2) D-Dimer (Latesha) < 0.27 ug/mlFEU Sodium Level 135 mmol/L (136-145) Potassium Level 5.4 mmol/L (3.5-5.1) Chloride Level 96 mmol/L (98-107) Carbon Dioxide Level 28 mmol/L (21-32) Anion Gap 11 (6-14) Blood Urea Nitrogen 86 mg/dL (8-26) Creatinine 8.0 mg/dL (0.7-1.3) Estimated GFR (Cockcroft-Gault) 6.9 BUN/Creatinine Ratio 11 (6-20) Glucose Level 101 mg/dL (70-99) Calcium Level 10.5 mg/dL (8.5-10.1) Phosphorus Level 2.8 mg/dL (2.6-4.7) Magnesium Level 3.6 mg/dL (1.8-2.4) Total Bilirubin 0.9 mg/dL (0.2-1.0) Aspartate Amino Transf (AST/SGOT) 9 U/L (15-37) Alanine Aminotransferase (ALT/SGPT) 15 U/L (16-63) Alkaline Phosphatase 83 U/L (46-116) Troponin I Quantitative 0.069 ng/mL (0.000-0.055) HY-Zzp-G-Type Natriuretic Peptide > 63067 pg/mL (0-124) Total Protein 7.2 g/dL (6.4-8.2) Albumin 4.1 g/dL (3.4-5.0) Albumin/Globulin Ratio 1.3 (1.0-1.7) Lipase 98 U/L (73-393) Laboratory Tests Test 12/26/18 05:41 White Blood Count 6.0 x10^3/uL (4.0-11.0) Red Blood Count 3.57 x10^6/uL (4.30-5.70) Hemoglobin 11.4 g/dL (13.0-17.5) Hematocrit 35.4 % (39.0-53.0) Mean Corpuscular Volume 99 fL (79-100) Mean Corpuscular Hemoglobin 32 pg (25-35) Mean Corpuscular Hemoglobin Concent 32 g/dL (31-37) Red Cell Distribution Width 15.6 % (11.5-14.5) Platelet Count 143 x10^3/uL (140-400) Neutrophils (%) (Auto) 76 % (31-73) Lymphocytes (%) (Auto) 15 % (24-48) Monocytes (%) (Auto) 6 % (0-9) Eosinophils (%) (Auto) 2 % (0-3) Basophils (%) (Auto) 1 % (0-3) Neutrophils # (Auto) 4.6 x10^3uL (1.8-7.7) Lymphocytes # (Auto) 0.9 x10^3/uL (1.0-4.8) Monocytes # (Auto) 0.4 x10^3/uL (0.0-1.1) Eosinophils # (Auto) 0.1 x10^3/uL (0.0-0.7) Basophils # (Auto) 0.0 x10^3/uL (0.0-0.2) D-Dimer (Latesha) < 0.27 ug/mlFEU Sodium Level 135 mmol/L (136-145) Potassium Level 5.4 mmol/L (3.5-5.1) Chloride Level 96 mmol/L (98-107) Carbon Dioxide Level 28 mmol/L (21-32) Anion Gap 11 (6-14) Blood Urea Nitrogen 86 mg/dL (8-26) Creatinine 8.0 mg/dL (0.7-1.3) Estimated GFR (Cockcroft-Gault) 6.9 BUN/Creatinine Ratio 11 (6-20) Glucose Level 101 mg/dL (70-99) Calcium Level 10.5 mg/dL (8.5-10.1) Phosphorus Level 2.8 mg/dL (2.6-4.7) Magnesium Level 3.6 mg/dL (1.8-2.4) Total Bilirubin 0.9 mg/dL (0.2-1.0) Aspartate Amino Transf (AST/SGOT) 9 U/L (15-37) Alanine Aminotransferase (ALT/SGPT) 15 U/L (16-63) Alkaline Phosphatase 83 U/L (46-116) Troponin I Quantitative 0.069 ng/mL (0.000-0.055) XW-Hvz-C-Type Natriuretic Peptide > 99471 pg/mL (0-124) Total Protein 7.2 g/dL (6.4-8.2) Albumin 4.1 g/dL (3.4-5.0) Albumin/Globulin Ratio 1.3 (1.0-1.7) Lipase 98 U/L (73-393) Assessment/Plan Assessment/Plan IMP HYPERKALEMIA HYPONATREMIA CHEST PAIN ANEMIA ESRD HTN PLAN HD TODAY UF TO DW CARDIOLOGY EVALUATION ARANESP WHEN NEEDED WILL FOLLOW KELLY CALHOUN MD December 26, 2018 11:18
[2018-12-26] MEDS: CALCIUM CARBONATE 500 MG TABLET PO SCH ×3 (11:30→21:51)
--- NOTE | 2018-12-26 11:43 | NUR ---
Patient arrived to room 246 via bed from ER at 0830. Patient A&OX4. Complaints of chest pain 01/29. Dr. Concepcion paged for orders. Consults called. The patient, EDWARD DOOLEY, 63 y/o, M admitted by WAYLON CONCEPCION MD, was given written information regarding hospital policies, unit procedures and contact persons. Valuables were checked and noted. Will continue to monitor.
--- NOTE | 2018-12-26 11:44 | HP ---
ADMIT DATE: 12/26/2018 HISTORY OF PRESENT ILLNESS: The patient is a 63-year-old male patient, a resident at [facility] who apparently was awakened early this morning from sleep with severe retrosternal chest pain that he rated about 8-9/10, associated with nausea, but no vomiting. He also complained of shortness of breath, but denied any radiation of chest pain. Denied any diaphoresis. He was evaluated in the Emergency Room, has had an EKG, which showed it was in sinus rhythm with a heart rate of 77. His first set of cardiac enzyme was slightly elevated at 0.069, however, this in the context of end-stage renal disease and extremely hypertensive urgency as his blood pressure on arrival was 201/103. 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 However, to the best of my knowledge, he has never had any cardiac catheterization. PAST MEDICAL HISTORY: Significant for hypertension, end-stage renal disease, on hemodialysis Tuesday, Tuesday, and Tuesday. He is known to have spina bifida cystica with paraplegia and Arnold-Chiari syndrome, seizure disorder, chronic pain syndrome, hyperlipidemia, hypothyroidism, iron deficiency anemia, anxiety and depression as well as severe opioid-induced constipation. He is visually impaired. PAST SURGICAL HISTORY: Significant for appendectomy, cholecystectomy, suprapubic catheter placement, nephrectomy, ureterostomy, ileal conduit and incisional hernia repair. ALLERGIES: HE IS ALLERGIC TO AMOXICILLIN, GABAPENTIN, LYRICA, AND SULFA DRUGS. FAMILY HISTORY: Positive for CVA in his mother. SOCIAL HISTORY: He is single, never , has no children. He is an ex-smoker, does not smoke anymore, does not drink alcohol or use any recreational drugs. Has been a resident at [facility] for more than a year now. REVIEW OF SYSTEMS: As per history of present illness. MEDICATIONS: He is currently on following medications: He is on Zyrtec 10 mg once a day, clonidine 0.3 mg TTS patch once a week, hydralazine 25 mg 3 times a day, nitroglycerin 0.4 mg sublingually every 10 minutes, nifedipine, Procardia 60 mg twice a day, OxyContin 10 mg twice a day. He is on Percocet 5/325 one tablet every 4 hours, tramadol 50 mg every 6 hours. He is on Tylenol 650 mg every 6 hours, clonazepam 0.5 mg twice a day, duloxetine 60 mg twice a day, sertraline for Zoloft 200 mg daily, trazodone 100 mg at bedtime, calcium carbonate 1000 mg p.o. t.i.d. before meals, calcium acetate 667 mg tablet, she takes 3 tablets 3 times a day with meals as a phosphate binder; Flonase 2 sprays to each nostril once a day, Systane 1 drop to both eyes 4 times a day, loperamide 2 mg every 4 hours as needed, bisacodyl, Dulcolax tablet 10 mg once a day, mag citrate 296 mL solution p.o. p.r.n. as needed for constipation, polyethylene glycol 17 grams twice a day, meclizine 12.5 mg every 8 hours, ondansetron 4 mg every 6 hours, Protonix 40 mg once a day, metoclopramide 5 mg 3 times a day, linaclotide for Linzess 290 mcg p.o. daily, Naltrexone for Relistor 150 mg daily, Movantik 25 mg daily, levothyroxine sodium 75 mcg once a day. She is on folic acid for Nephro-Dangelo 1 tablet once a day. PHYSICAL EXAMINATION: GENERAL: On arrival to the Emergency Room, the patient looked well and was clearly in no apparent respiratory distress, slightly pale, but no jaundice, cyanosis, or thyromegaly. No jugular venous distension. No limb edema. VITAL SIGNS: His heart rate was 74, blood pressure was 112/114, temperature 98.1, respiratory rate 21 and oxygen saturation was 99% on 3 liters of oxygen. HEAD, EYES, EARS, NOSE AND THROAT: Normocephalic, atraumatic. NECK: Supple. HEART: Showed normal first and second heart sounds. No gallop, rub or murmur. CHEST: Clear to auscultation. No crepitation or rhonchi. ABDOMEN: Distended, soft, nontender. No guarding or rigidity. No organomegaly. Hernial orifice is intact. Bowel sounds normal. NEUROLOGIC: He is very hard of hearing; otherwise all his cranial nerves are intact. EXTREMITIES: He moves extremities without difficulty; however, he has paraplegia and he is mostly bed bound, wheelchair bound. LABORATORY DATA: On arrival to the Emergency Room showed a white cell count of 6000, hemoglobin 11, hematocrit 35, MCV 99 and platelet count of 143,000. His serum sodium was 135, potassium 5.4, chloride 96, bicarbonate 28, anion gap 11, BUN 86, creatinine 8, and estimated GFR was 60.9 mL per minute. His glucose was 101, calcium was 10.5, phosphorus 2.8, and magnesium was 3.6. His total bilirubin, AST, ALT, alkaline phosphatase were normal. His first set of cardiac enzymes showed troponin to be less than 0.0169, beta natriuretic peptide was 35,000. Total protein was 7.4, albumin was 4.1 and serum lipase was 98. In summary, this is a 63-year-old male patient who basically came again with complaint of retrosternal chest pain that awakened him from sleep, and according to him, it was 8 or 9/10, associated with nausea, shortness of breath, but no vomiting, no diaphoresis, no radiation. His first set of cardiac enzymes showed troponin to be less than 0.069. PLAN: My plan is to consult the Nephrology team as today is his scheduled hemodialysis day. We do 2 more sets of cardiac enzymes. We will check his fasting lipid profile tomorrow morning and obviously we will consult the cardiology team to see whether cardiac catheterization is an option at this time. WAYLON CONCEPCION MD DR: ADDIE/joe JOB#: [id number] / [id number]
[2018-12-26] MEDS ORDERED: hydrALAZINE 20 MG/ML VIAL. IVP PRN (11:45)
--- NOTE | 2018-12-26 11:46 | PDOC2 ---
UZIEL CARRANZA REVENUE INSPECTOR 12/26/18 1146: CARDIAC CONSULT DATE OF CONSULT Date of Consult DATE: 12/26/18 TIME: 11:25 REASON FOR CONSULT Reason for Consult: Chest pain REFERRING PHYSICIAN Referring Physician: Valerio SOURCE Source: Chart review, Patient HISTORY OF PRESENT ILLNESS HISTORY OF PRESENT ILLNESS This is a pleasant 63 yo male admitted for complains of chest pain. Pt reports that his SBP at [facility] was in the 180s and 200s lately. Reports waking up at noc with right chest sharp pain, no jaw tightness but with some SOA and nausea. Denies any palpitations. He has not been missing his HD and has not been refusing his home meds. No recent falls or injury. Presently feels better and no discomfort. PAST MEDICAL HISTORY Past Medical History Cardiovascular: HTN, pulmonary HTN CENTRAL NERVOUS SYSTEM: Seizure, Other (spina bifida, arnold chiari) GI: GERD, gastroparesis Heme/Onc: Anemia NOS Psych: Other Musculoskeletal: Other (paraplegia; chronic pain sydrome) ENT: Other ([place]) Renal/: Chronic renal failure (ESRD), Other (neurogenic bladder) Endocrine: Hypothyroidism PAST SURGICAL HISTORY Past Surgical History nephrectomy, urotersotomy,ileal conduit FAMILY HISTORY Family History noncontributory to CV SOCIAL HISTORY Smoke: No ALCOHOL: none Drugs: None Lives: Jail CURRENT MEDICATIONS CURRENT MEDICATIONS Current Medications Medications (Trade) Dose Ordered Sig/Pema Route PRN Reason Start Time Stop Time Status Last Admin Dose Admin Morphine Sulfate (Morphine Sulfate) 2 mg PRN Q15MIN PRN IV/SQ PAIN GREATER THAN 3/10 12/26/18 05:15 12/27/18 05:14 12/26/18 06:45 Ondansetron HCl (Zofran) 4 mg 1X ONCE IV 12/26/18 05:15 12/26/18 05:17 DC 12/26/18 05:42 Clonidine HCl (Catapres) 0.2 mg 1X ONCE PO 12/26/18 05:15 12/26/18 05:17 DC 12/26/18 05:41 Nifedipine (Procardia Xl) 60 mg BID PO 12/26/18 09:00 12/26/18 09:38 Hydralazine HCl (Apresoline) 25 mg TID PO 12/26/18 09:00 12/26/18 09:38 Cetirizine HCl (ZyrTEC) 10 mg DAILY PO 12/26/18 10:00 12/26/18 10:57 Clonazepam (KlonoPIN) 0.5 mg BID PO 12/26/18 10:00 12/26/18 10:56 Docusate Sodium (Colace) 100 mg BID PO 12/26/18 10:00 12/26/18 10:56 Vitamin B Complex/ Vitamin C (Litzy-Dangelo) 1 tab DAILY PO 12/26/18 10:00 12/26/18 10:55 Levothyroxine Sodium (Synthroid) 75 mcg DAILY PO 12/26/18 10:00 12/26/18 10:57 Duloxetine HCl (Cymbalta) 60 mg BID PO 12/26/18 10:00 12/26/18 10:56 Oxycodone HCl (OxyCONTIN) 10 mg Q12HR PO 12/26/18 10:30 12/26/18 10:56 Pantoprazole Sodium (Protonix) 40 mg DAILYAC PO 12/26/18 10:30 12/26/18 10:55 Polyethylene Glycol (miraLAX PACKET) 17 gm BID PO 12/26/18 10:30 12/26/18 10:58 Artificial Tears (Artificial Tears) 1 drop QID OU 12/26/18 10:30 12/26/18 10:58 ALLERGIES ALLERGIES: Coded Allergies: Sulfa (Sulfonamide Antibiotics) (Verified Allergy, Intermediate, 11/17/18) amoxicillin (Verified Allergy, Intermediate, 11/17/18) gabapentin (Verified Allergy, Intermediate, 11/17/18) pregabalin (Verified Allergy, Intermediate, 11/17/18) I S O L A T I O N *CONTACT* (Verified Allergy, Unknown, 11/17/18) mrsa ROS Review of System 14 point ROS evlauated with pertinent positives noted per HPI PHYSICAL EXAM General: Alert, Oriented X3, Cooperative, No acute distress HEENT: Atraumatic, Mucous membr. moist/pink Lungs: Clear to auscultation, Normal air movement Heart: Regular rate (SR), Other (2/6 diastolic murmur to apex) Abdomen: Soft, No tenderness Extremities: Other (1-2+ bilateral LE edema) Skin: No breakdown, No significant lesion Neuro: Normal speech, Sensation intact Psych/Mental Status: Mental status NL, Mood NL MUSCULOSKELETAL: Other (short LE; paraplegic) VITALS VITALS Vital Signs Date Time Temp Pulse Resp B/P (MAP) Pulse Ox O2 Delivery O2 Flow Rate FiO2 12/26/18 10:56 Nasal Cannula 4.0 12/26/18 09:38 66 200/85 12/26/18 08:30 14 97 12/26/18 08:30 97.2 97.2 LABS Lab: Laboratory Tests Test 12/26/18 05:41 White Blood Count 6.0 x10^3/uL (4.0-11.0) Red Blood Count 3.57 x10^6/uL (4.30-5.70) Hemoglobin 11.4 g/dL (13.0-17.5) Hematocrit 35.4 % (39.0-53.0) Mean Corpuscular Volume 99 fL (79-100) Mean Corpuscular Hemoglobin 32 pg (25-35) Mean Corpuscular Hemoglobin Concent 32 g/dL (31-37) Red Cell Distribution Width 15.6 % (11.5-14.5) Platelet Count 143 x10^3/uL (140-400) Neutrophils (%) (Auto) 76 % (31-73) Lymphocytes (%) (Auto) 15 % (24-48) Monocytes (%) (Auto) 6 % (0-9) Eosinophils (%) (Auto) 2 % (0-3) Basophils (%) (Auto) 1 % (0-3) Neutrophils # (Auto) 4.6 x10^3uL (1.8-7.7) Lymphocytes # (Auto) 0.9 x10^3/uL (1.0-4.8) Monocytes # (Auto) 0.4 x10^3/uL (0.0-1.1) Eosinophils # (Auto) 0.1 x10^3/uL (0.0-0.7) Basophils # (Auto) 0.0 x10^3/uL (0.0-0.2) D-Dimer (Latesha) < 0.27 ug/mlFEU Sodium Level 135 mmol/L (136-145) Potassium Level 5.4 mmol/L (3.5-5.1) Chloride Level 96 mmol/L (98-107) Carbon Dioxide Level 28 mmol/L (21-32) Anion Gap 11 (6-14) Blood Urea Nitrogen 86 mg/dL (8-26) Creatinine 8.0 mg/dL (0.7-1.3) Estimated GFR (Cockcroft-Gault) 6.9 BUN/Creatinine Ratio 11 (6-20) Glucose Level 101 mg/dL (70-99) Calcium Level 10.5 mg/dL (8.5-10.1) Phosphorus Level 2.8 mg/dL (2.6-4.7) Magnesium Level 3.6 mg/dL (1.8-2.4) Total Bilirubin 0.9 mg/dL (0.2-1.0) Aspartate Amino Transf (AST/SGOT) 9 U/L (15-37) Alanine Aminotransferase (ALT/SGPT) 15 U/L (16-63) Alkaline Phosphatase 83 U/L (46-116) Troponin I Quantitative 0.069 ng/mL (0.000-0.055) JF-Mxx-I-Type Natriuretic Peptide > 68124 pg/mL (0-124) Total Protein 7.2 g/dL (6.4-8.2) Albumin 4.1 g/dL (3.4-5.0) Albumin/Globulin Ratio 1.3 (1.0-1.7) Lipase 98 U/L (73-393) ECHOCARDIOGRAM ECHOCARDIOGRAM <Conclusion> Left ventricle systolic function is low normal. The Ejection Fraction is 50%. There is global hypokinesis of the left ventricle. RV Systolic function is mildly reduced. There is mild mitral valve stenosis with a maximum pressure gradient of 18 mmHg and mean pressure gradient of 4-7 mmHg. Doppler and Color Flow revealed mild tricuspid regurgitation. There is moderate pulmonary hypertension. The PA pressure was estimated at 58 mmHg. DATE: 11/14/18 1225 ASSESSMENT/PLAN ASSESSMENT/PLAN 1. Malignant HTN; significantly uncontrolled at [facility] 2. Acute on chronic diastolic CHF: due to above 3. Atypical chest pain: likely from above 4. Elevated trop: 0.069 without significant EKG changes. Suspect type 2 with underlying ESRD 5. ESRD/hyperkalemia 6. Notable for gastroparesis and GERD 7. Hx of spina bifida/paraplegia/Arnold-Chiari syndrome/seizure 8. Obesity 9. Mild mitral stenosis Recommendations 1. Given his recurrent CP will proceed with lexiscan today. 2. Continue with BP med intensification. Adalat and TTS3 in place. Add imdur and increase hydralazine. Hydralazine IV PRN. 3. Continue with secondary prevention measures. . 4. fluid off loading per HD KARISHMA LAU MD 12/27/18 0859: CARDIAC CONSULT ASSESSMENT/PLAN ASSESSMENT/PLAN Patient seen and examined 12/26/18. Agree with NETWORK TECHNICAL ANALYST's assessment and plan. Chest pain with atypical features. Slight troponin elevation probably demand ischemia. Increase hydralazine dose for better blood pressure control. Agree with Lexiscan nuclear stress test to rule out ischemia. Continue fluid removal with hemodialysis for acute on chronic diastolic heart failure. Thank you for your consultation. UZIEL CARRANZA APRN December 26, 2018 11:46 KARISHMA LAU MD December 27, 2018 08:59
[2018-12-26] MEDS: CALCIUM ACETATE 667 MG CAPSULE PO SCH ×2 (12:00→16:59)
[2018-12-26] MEDS ORDERED: IV NORMAL SALINE 1000ML BAG 1,000 ML IV PRN ×2 (13:08)
[2018-12-26] MEDS ORDERED: diphenhydrAMINE 50 MG/ML VIAL IV PRN ×2 (13:15)
[2018-12-26] MEDS ORDERED: ALBUMIN HUMAN 25% 200 ML IV PRN (13:15)
[2018-12-26] MEDS ORDERED: DIALYSIS PATIENT. MC PRN (13:15)
[2018-12-26] MEDS ORDERED: ACETAMINOPHEN 500 MG TABLET PO PRN (13:15)
--- NOTE | 2018-12-26 14:25 | NUR ---
SS following for discharge planning. SS received notification that pt is from [facility]. SS contacted [facility], ; fax [phone], to verify pt's previous placement. [facility] confirmed that pt is a LTC resident from there facility and was able to return when medically stable for transfer. Pt's RN notified.
[2018-12-26] MEDS: SERTRALINE 50 MG TABLET. PO SCH (16:51)
[2018-12-26] MEDS: oxyCODONE/APAP 5/325 1 TAB TABLET PO PRN (16:55)
[2018-12-26] MEDS: ISOSORBIDE MONONITRATE ER 30 MG TAB.ER.24H PO SCH (16:55)
[2018-12-26] MEDS: hydrALAZINE 25 MG TABLET PO SCH ×3 (16:57→21:53)
[2018-12-26] MEDS: METOCLOPRAMIDE 10 MG TABLET. PO SCH ×2 (16:57→21:50)
[2018-12-26 18:55] VITALS: BP 169/88
[2018-12-26 19:39] VITALS: BP 161/91
[2018-12-26] MEDS ORDERED: NIFEDIPINE PO SCH (21:00)
[2018-12-26] MEDS: traZODone 100 MG TABLET. PO SCH (21:50)
[2018-12-26 23:24] VITALS: BP 165/79
[2018-12-27] VITALS (7 sets, daily range): BP systolic 148–193; BP diastolic 75–95
[2018-12-27] MEDS: NON FORMULARY ITEM (Linaclotide (Linzess) 290 MCG) PO SCH (07:00)
[2018-12-27] MEDS: CALCIUM CARBONATE 500 MG TABLET PO SCH ×4 (07:30→20:49)
[2018-12-27] MEDS: CALCIUM ACETATE 667 MG CAPSULE PO SCH ×3 (08:00→17:40)
[2018-12-27] MEDS ORDERED: REGADENOSON 0.4 MG/5 ML DISP.SYRIN. IV ONE (08:30)
[2018-12-27] MEDS: NON FORMULARY ITEM (Methylnaltrexone Bromide (Relistor) 150 MG) PO SCH (09:00)
[2018-12-27] MEDS: hydrALAZINE 25 MG TABLET PO SCH ×3 (09:00→20:48)
[2018-12-27] MEDS: FLUTICASONE 50MCG/NASAL SPRAY 16GM BOTTLE. NS SCH (09:00)
[2018-12-27] MEDS: POLYVINYL ALCOHOL 1.4% OPHTH SOLUTION 15ML BOTTLE. OU SCH ×4 (09:00→20:50)
[2018-12-27] MEDS: METOCLOPRAMIDE 10 MG TABLET. PO SCH ×3 (09:00→20:48)
--- NOTE | 2018-12-27 09:29 | PDOC ---
CLAUDIO DAMON APRN 12/27/18 0929: CARDIO Progress Notes Date and Time Date of Service 12/27/18 Time of Evaluation 0915 Subjective Subjective: No Chest Pain, No shortness of breath Vitals Vitals Vital Signs Date Time Temp Pulse Resp B/P (MAP) Pulse Ox O2 Delivery O2 Flow Rate FiO2 12/27/18 07:35 97.9 73 16 187/87 (120) 94 Nasal Cannula 3.0 97.9 Weight Weight [ ] Input and Output Intake and Output Intake and Output 12/27/18 07:00 Intake Total 540 ml Output Total 0 ml Balance 540 ml Intake Oral 540 ml Output Urine Total 0 ml Laboratory Labs Laboratory Tests Test 12/26/18 11:25 12/26/18 14:05 Troponin I Quantitative 0.068 ng/mL (0.000-0.055) 0.068 ng/mL (0.000-0.055) Physical Exam HEENT: Neck Supple W Full Motion Chest: Symmetric LUNGS: Clear to Auscultation Heart: S1S2, RRR, murmurs (2/6 systolic murmur ) Extremities: Other (1+ bilateral LE edema ) Neurology: alert, follow commands Assessment Assessment 1. Malignant HTN; better, but remains elevated 2. Acute on chronic diastolic CHF; better compensated 3. Atypical chest pain: likely from above. MPI without any evidence of ischemia or infarct 4. Elevated trop: 0.069 without significant EKG changes. Most probably type II, demand ischemia in the setting of ESRD and malignant HTN 5. ESRD/hyperkalemia 6. Obesity 7. Mild mitral stenosis; outpatient monitoring Recommendations Fluid off loading via HD as per nephrology Add coreg for better CP control Am labs Supportive care KARISHMA LAU MD 12/27/18 1711: CARDIO Progress Notes Assessment Assessment Patient seen and examined. Agree with ASSOCIATE PROFESSOR OF CHEMISTRY's assessment and plan. Lexiscan nuclear stress test did not show any significant ischemia. Chest pain noncardiac and most probably musculoskeletal Agree with adding beta blockers for better blood pressure control Acute on chronic diastolic heart failure better compensated CLAUDIO DAMON APRN December 27, 2018 09:29 KARISHMA LAU MD December 27, 2018 17:11
--- NOTE | 2018-12-27 10:30 | PDOC ---
Renal-Progress Notes Subjective Notes Notes NO CHEST PAIN NOW History of Present Illness Hx of present illness STABLE Vitals Vitals Vital Signs Date Time Temp Pulse Resp B/P (MAP) Pulse Ox O2 Delivery O2 Flow Rate FiO2 12/27/18 09:00 Nasal Cannula 3.0 12/27/18 07:35 97.9 73 16 187/87 (120) 94 97.9 Weight Weight [ ] I.O. Intake and Output Intake and Output 12/27/18 06:59 Intake Total 540 ml Output Total 0 ml Balance 540 ml Intake Oral 540 ml Output Urine Total 0 ml Labs Labs Laboratory Tests Test 12/26/18 11:25 12/26/18 14:05 Troponin I Quantitative 0.068 ng/mL (0.000-0.055) 0.068 ng/mL (0.000-0.055) Review of Systems Constitutional: yes: alert, oriented Ears/Nose/Throat: Yes: no symptom reported Eyes: Yes: no symptom reported Pulmonary: Yes no symptom reported Cardiovascular: Yes chest pain Genitourinary: Yes: no symptom reported Musculoskeletal: Yes: muscle stiffness Skin: Yes no symptom reported Psychiatric/Neurological: Yes: no symptom reported Endocrine: Yes: no symptom reported Physical Exam General Appearance: no apparent distress Skin: warm Respiratory: bilateral CTA Heart: S1S2, RRR Abdomen: soft, bowel sounds present Extremities: pulses present Neurology: alert, oriented Musculoskeletal: Other Assessment Assessment IMP HYPERKALEMIA HYPONATREMIA CHEST PAIN ANEMIA ESRD HTN PLAN HD TTS MPI TODAY CARDIOLOGY EVALUATION ARANESP WHEN NEEDED WILL FOLLOW KELLY CALHOUN MD December 27, 2018 10:30
--- NOTE | 2018-12-27 12:37 | RAD ---
MR#: [id number] Date of Study: 12/27/2018 Ordering Physician: UZIEL CARRANZA, Referring Physician: ANGI PACE Tech: RT Rory (R) (N) APPROVED REPORT Test Type: Pharmacological Stress Nurse/Tech: Nehal MONTOYA Test Indications: Chest Pain Cardiac History: HTN, X-Smoker, See EMR Medications: See EMR Medical History: See EMR Resting ECG: SR Resting Heart Rate: 68 bpm Resting Blood Pressure: 155/80mmHg Pretest Chest Pain: No chest pain Nurse/Tech Notes Lungs CTA, Heart tones regular Consent: The procedure was explained to the patient in lay terms. Informed consent was witnessed. Yakov eout was entered into [employer]. History and Stress Test performed by GARRISON Grijalva, MIGUEL ANGEL (R) (N) Pharm. Details Pharmacologic stress testing was performed using 0.4mg per 5ml of regadenoson given intravenously ove r 7-10 seconds. Stress Symptoms Nausea POST EXERCISE Reason for Termination: Infusion complete Max HR: 96 bpm Max Blood Pressure: 173/86mmHg Blood Pressure response to exercise: Normal blood pressure response during stress. Chest Pain: No. Arrhythmia: No. ST Change: No. INTERPRETATION Stress EKG Conclusion: Baseline EKG showed sinus rhythm. No ischemic changes at peak stress. No arr hythmias. Imaging Protocol IMAGE PROTOCOL: Rest Tc-99m/stress Tc-99m 1 day Rest: Stress: Viability: Radiopharm.Tc99m HlhykgnwlXt21a Sestamibi [id number] 32mCi Duration 15min. 10min. Img Date 12/27/2018 12/27/2018 Inj-Img [id number]. 60min. Rest Admin Site:IV - Left WristAdministrator:RT Jose Valadez)(N) Stress Admin Site: IV - Left WristAdministrator: GARRISON Grijalva, MIGUEL ANGEL (R)(N) STRESS DATA End Diast. Vol.215.0mlAv. Heart Rate73.0bpm End Syst. Vol.101.0mlCO Index BSA8.4L/min Myocardial Vmho701.0gEject. Blernjvw60.0% Stress Rates Pk. Fill Rate2.60EDV/secLVtime Pk. Fill 232.97msec Pk. Empty Rate3.01ESV/secLVtime Pk. Hsngn073.60msec 1/3 Pk. Fill1.03EDV/sec Stress Scores Regional WT2.00Summed WT13.00 Regional WM0.00Summed WM2.00 Study quality was good. Left Ventricular size was Normal at Rest and Stress. Lung uptake was . Left Ventricular ejection fraction is 53%. The rest and stress images show normal perfusion, normal contraction and thickening. LV Perf. Quant 17 Seg. SSS2.00 17 Seg. SRS4.00 17 Seg. SDS1.00 Stress Defect Extent (% LAD)0.00Rest Defect Extent (% LAD)8.80Rev. Defect Extent (% LAD)0.00 Stress Defect Extent (% LCX) 17.50Rest Defect Extent (% LCX)0.00Rev. Defect Extent (% LCX)8.80 Stress Defect Extent (% RCA)0.00Rest Defect Extent (% RCA)0.00Rev. Defect Extent (% RCA)0.00 Stress Defect Extent (% ALEJANDRO)4.30Rest Defect Extent (% ALEJANDRO)5.70Rev. Defect Extent (% ALEJANDRO)2.00 Conclusion 1. Regadenoson cardioisotope stress test did not show any evidence of ischemia or infarct. 2. Normal left ventricular systolic function with ejection fraction calculated at 53%. 3. Low risk for cardiac events. Signed by : Bob Wei, Electronically Approved : 12/27/2018 12:36:23
[2018-12-27] MEDS: DULoxetine HCL 30 MG CAPSULE.DR PO SCH ×2 (12:59→20:49)
[2018-12-27] MEDS: ISOSORBIDE MONONITRATE ER 30 MG TAB.ER.24H PO SCH (12:59)
[2018-12-27] MEDS: SERTRALINE 50 MG TABLET. PO SCH (13:00)
[2018-12-27] MEDS: clonazePAM 0.5 MG TABLET PO SCH ×2 (13:00→20:49)
[2018-12-27] MEDS: oxyCODONE ER 10 MG TAB.ER.12H PO SCH ×2 (13:00→20:51)
[2018-12-27] MEDS: DOCUSATE SODIUM 100 MG CAPSULE. PO SCH ×2 (13:01→20:49)
[2018-12-27] MEDS: BISACODYL 5 MG TABLET.DR. PO SCH (13:01)
[2018-12-27] MEDS: POLYETHYLENE GLYCOL 3350 17 GM PACKET. PO SCH ×2 (13:02→20:55)
[2018-12-27] MEDS: CETIRIZINE HCL 10 MG TABLET. PO SCH (13:02)
[2018-12-27] MEDS: PANTOPRAZOLE 40 MG TABLET.DR. PO SCH (13:02)
[2018-12-27] MEDS: LEVOTHYROXINE 75 MCG TABLET PO SCH (13:02)
[2018-12-27] MEDS: FOLIC/VIT B COMP W-C (RENAL) TABLET. PO SCH (13:21)
[2018-12-27] MEDS: oxyCODONE/APAP 5/325 1 TAB TABLET PO PRN (15:35)
[2018-12-27] MEDS: ONDANSETRON ODT 4 MG TAB.RAPDIS. PO PRN (15:35)
[2018-12-27] MEDS: CARVEDILOL 6.25 MG TABLET. PO SCH (17:40)
[2018-12-27] MEDS: traZODone 100 MG TABLET. PO SCH (20:50)
--- NOTE | 2018-12-27 21:10 | PN ---
DATE: 12/27/2018 SUBJECTIVE: The patient is resting, slightly propped up in bed, in no apparent distress. He is chest pain-free, feeling generally much better. He was dialyzed yesterday and was seen by the Cardiology team who recommended stress test. PHYSICAL EXAMINATION: GENERAL: When I examined him, he looked pale; no jaundice, cyanosis, or thyromegaly. No jugular venous distension. No lower limb edema. VITAL SIGNS: His heart rate was 73, blood pressure was 187/87, temperature was 97.9, respiratory rate was 16, and oxygen saturation was 94% on 3 liters of oxygen by nasal cannula. HEAD, EYES, EARS, NOSE AND THROAT: Showed normocephalic, atraumatic. NECK: Supple. HEART: Showed normal first and second sounds. No gallop, rub or murmur. CHEST: Clear to auscultation. No crepitation or rhonchi. ABDOMEN: Distended, soft, nontender. No guarding or rigidity. No organomegaly. All hernial orifices intact. Bowel sounds normal. NEUROLOGIC: He is awake, alert, very hard of hearing, but all cranial nerves are intact. He moves upper extremities without difficulty. 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 ASSESSMENT AND PLAN: 1. He is completely anuric and hemodialysis dependent. He has 3 sets of cardiac enzymes that are slightly elevated for which we did consult the cardiology team for which he now has had the first part of the nuclear stress test. 2. Malignant hypertension, not yet optimally controlled. He continues to be on clonidine patch as well as hydralazine, isosorbide mononitrate, and Procardia 60 mg twice a day. WAYLON CONCEPCION MD DR: ADDIE/joe JOB#: [id number] / [id number]
[2018-12-28] MEDS: oxyCODONE/APAP 5/325 1 TAB TABLET PO PRN (01:15)
[2018-12-28 02:57] VITALS: BP 166/81
--- NOTE | 2018-12-28 03:00 | NUR ---
Change of care note: resumed care of patient at approx 0225. reviewed assessment and agrees. Patient resting comfortably on 2L NC. call light with in reach, bed in low locked position. pt awake watching TV. Will continue to monitor patient.
[2018-12-28] MEDS: PANTOPRAZOLE 40 MG TABLET.DR. PO SCH (06:19)
[2018-12-28] MEDS: CALCIUM CARBONATE 500 MG TABLET PO SCH ×4 (06:20→21:03)
[2018-12-28 07:00] VITALS: BP 173/88
[2018-12-28] MEDS: NON FORMULARY ITEM (Linaclotide (Linzess) 290 MCG) PO SCH (07:00)
[2018-12-28] MEDS: ONDANSETRON ODT 4 MG TAB.RAPDIS. PO PRN (08:20)
[2018-12-28] MEDS: METOCLOPRAMIDE 10 MG TABLET. PO SCH ×3 (08:21→21:03)
[2018-12-28] MEDS: CARVEDILOL 6.25 MG TABLET. PO SCH ×2 (08:22→17:00)
[2018-12-28] MEDS: ISOSORBIDE MONONITRATE ER 30 MG TAB.ER.24H PO SCH (08:22)
[2018-12-28] MEDS: DOCUSATE SODIUM 100 MG CAPSULE. PO SCH ×2 (08:22→21:03)
[2018-12-28] MEDS: DULoxetine HCL 30 MG CAPSULE.DR PO SCH ×2 (08:22→21:02)
[2018-12-28] MEDS: LEVOTHYROXINE 75 MCG TABLET PO SCH (08:22)
[2018-12-28] MEDS: hydrALAZINE 25 MG TABLET PO SCH ×3 (08:23→21:02)
[2018-12-28] MEDS: CETIRIZINE HCL 10 MG TABLET. PO SCH (08:24)
[2018-12-28] MEDS: CALCIUM ACETATE 667 MG CAPSULE PO SCH ×3 (08:24→18:34)
[2018-12-28] MEDS: BISACODYL 5 MG TABLET.DR. PO SCH (08:24)
[2018-12-28] MEDS: oxyCODONE ER 10 MG TAB.ER.12H PO SCH ×2 (08:24→21:04)
[2018-12-28] MEDS: SERTRALINE 50 MG TABLET. PO SCH (08:24)
[2018-12-28] MEDS: POLYETHYLENE GLYCOL 3350 17 GM PACKET. PO SCH ×2 (08:25→21:04)
[2018-12-28] MEDS: clonazePAM 0.5 MG TABLET PO SCH ×2 (08:25→21:03)
[2018-12-28] MEDS: FOLIC/VIT B COMP W-C (RENAL) TABLET. PO SCH (08:25)
[2018-12-28] MEDS: NON FORMULARY ITEM (Methylnaltrexone Bromide (Relistor) 150 MG) PO SCH (08:47)
[2018-12-28] MEDS: FLUTICASONE 50MCG/NASAL SPRAY 16GM BOTTLE. NS SCH (08:47)
[2018-12-28] MEDS: POLYVINYL ALCOHOL 1.4% OPHTH SOLUTION 15ML BOTTLE. OU SCH ×4 (08:47→21:00)
--- NOTE | 2018-12-28 08:59 | PDOC ---
Renal-Progress Notes Subjective Notes Notes NO NEW COMPLAINTS History of Present Illness Hx of present illness STABLE Vitals Vitals Vital Signs Date Time Temp Pulse Resp B/P (MAP) Pulse Ox O2 Delivery O2 Flow Rate FiO2 12/28/18 08:24 14 96 Room Air 2.0 12/28/18 08:23 74 173/88 12/28/18 07:00 97.8 97.8 Weight Weight [ ] I.O. Intake and Output Intake and Output 12/28/18 07:00 Intake Total 100 ml Balance 100 ml Intake Oral 100 ml # Bowel Movements 1 Review of Systems Constitutional: yes: alert, oriented Ears/Nose/Throat: Yes: no symptom reported Eyes: Yes: no symptom reported Pulmonary: Yes no symptom reported Cardiovascular: Yes chest pain Genitourinary: Yes: no symptom reported Musculoskeletal: Yes: muscle stiffness Skin: Yes no symptom reported Psychiatric/Neurological: Yes: no symptom reported Endocrine: Yes: no symptom reported Physical Exam General Appearance: no apparent distress Skin: warm Respiratory: bilateral CTA Heart: S1S2, RRR Abdomen: soft, bowel sounds present Extremities: pulses present Neurology: alert, follow commands Musculoskeletal: Other Assessment Assessment IMP HYPERKALEMIA HYPONATREMIA CHEST PAIN ANEMIA ESRD HTN PLAN HD TODAY UF TO [facility] CARDIOLOGY EVALUATION ARANESP WHEN NEEDED WILL FOLLOW KELLY CALHOUN MD December 28, 2018 08:59
[2018-12-28 09:19] LABS: HEMOGLOBIN 11.7 g/dL (13.0-17.5); RED BLOOD COUNT 3.52 x10^6/uL (4.30-5.70); RED CELL DISTRIBUTION WIDTH 15.7 % (11.5-14.5); WHITE BLOOD COUNT 5.1 x10^3/uL (4.0-11.0)
[2018-12-28 09:28] LABS: CALCIUM 10.1 mg/dL (8.5-10.1); CREATININE 7.7 mg/dL (0.7-1.3); GFR 7.2; POTASSIUM 5.6 mmol/L (3.5-5.1)
[2018-12-28] MEDS ORDERED: HYDR-2869 PO (10:14)
[2018-12-28] MEDS ORDERED: CARV25TA PO (10:14)
[2018-12-28] MEDS ORDERED: CLON1PAT11 TD (10:16)
--- NOTE | 2018-12-28 10:20 | SNU/HH DC ---
DISCHARGE ORDERS DISCHARGE INFORMATION: DISCHARGE DATE: December 28, 2018 FINAL DIAGNOSIS Problems Medical Problems: (1) Chest pain Status: Acute (2) Chronic kidney disease with end stage renal failure on dialysis Status: Acute (3) Hyperkalemia Status: Acute (4) Musculoskeletal chest pain Status: Acute CONDITION ON DISCHARGE: Stable CODE STATUS: Code Status: DNR/DNI SENIOR CARE: SNF STAY <30 DAYS: No POST DISCHARGE ORDERS: ACTIVITY ORDERS: Resume previous activity, Activity as tolerated DIET AFTER DISCHARGE: Renal CHECKS AFTER DISCHARGE: CHECKS AFTER DISCHARGE: Check blood press - daily, Check blood sugar, ac/hs DISCHARGE MEDICATIONS: Home Meds Active Scripts Clonidine (CATAPRES-TTS 3) 1 Each Patch.tdwk, 1 EACH TD WEEKLY for htn for 30 Days, #30 PATCH Prov:WAYLON CONCEPCION MD 12/28/18 Carvedilol (COREG) 25 Mg Tablet, 6.25 MG PO BIDWMEALS for CARDIAC for 30 Days, #15 TAB Prov:WAYLON CONCEPCION MD 12/28/18 Hydralazine Hcl (HYDRALAZINE HCL) 50 Mg Tablet, 1 TAB PO TID for hn, #90 TAB 5 Refills Prov:WAYLON CONCEPCION MD 12/28/18 Linaclotide (LINZESS) 290 Mcg Capsule, 290 MCG PO DAILY07 for IRRITABLE BOWEL for 30 Days, #30 CAP 5 Refills Prov:WAYLON CONCEPCION MD 11/20/18 Naloxegol Oxalate (Movantik) 25 Mg Tablet, 25 MG PO DAILY PRN for oic for 30 Days, #30 TAB 5 Refills Prov:WAYLON CONCEPCION MD 11/20/18 Docusate Sodium (COLACE) 100 Mg Capsule, 1 CAP PO BID, #30 CAP Prov:WAYLON CONCEPCION MD 11/05/16 Reported Medications Ondansetron (ONDANSETRON ODT) 4 Mg Tab.rapdis, 1 TAB PO PRN Q6HRS PRN for NAUSEA, #16 TAB 12/26/18 Tramadol Hcl (TRAMADOL HCL) 50 Mg Tablet, 50 MG PO Q6HRS PRN for PAIN, TAB 12/26/18 Methylnaltrexone Clayton (Relistor) 150 Mg Tablet, 150 MG PO DAILY for constipation, TAB 12/26/18 Nifedipine (PROCARDIA XL) 60 Mg Tab.er.24, 1 TAB PO BID for HTN, #90 TAB 1 Ref ill 12/26/18 Oxycodone/Apap 5-325 (PERCOCET 5-325 MG TABLET ) 1 Each Tablet, 1 TAB PO PRN Q4HRS PRN for PAIN, TAB 0 Refills 12/26/18 Magnesium Citrate (MAGNESIUM CITRATE) 296 Ml Solution, 296 ML PO PRN DAILY PRN for CONSTIPATION, #296 ML 12/26/18 Fluticasone Propionate (Flonase Allergy Relief) 9.9 Ml Lillian.susp, 2 SPRAYS NS DAILY for nasal congestions, BOTTLE 12/26/18 Calcium Carbonate (CALCIUM CARBONATE) 500 Mg Tablet, 1000 MG PO TIDACHC for heartburn, TAB 12/26/18 Bisacodyl (DULCOLAX) 5 Mg Tablet.dr, 10 MG PO DAILY for constipation, TAB 0 Refills 12/26/18 Calcium Acetate (CALCIUM ACETATE) 667 Mg Tablet, 3 TAB PO TIDWMEALS for DIALYSIS PATIENTS, CAP 11/15/18 Loperamide Hcl (LOPERAMIDE) 2 Mg Capsule, 4 MG PO PRN DAILY PRN for DIARRHEA, CAP 11/14/18 Meclizine Hcl (MECLIZINE HCL) 12.5 Mg Tablet, 12.5 MG PO Q8HRS PRN for NAUSEA/VOMITING, TAB 11/14/18 Cetirizine Hcl (ZYRTEC) 10 Mg Tablet, 1 TAB PO DAILY for Itching, #30 TAB 2 Refills 11/14/18 Pantoprazole Sodium (PROTONIX) 20 Mg Tablet.dr, 40 MG PO DAILY for GERD, TAB 11/14/18 Duloxetine Hcl (CYMBALTA) 60 Mg Capsule.dr, 60 MG PO BID for antidepressant, CAP 07/25/18 Propylene Glycol/Peg 400 (SYSTANE 0.3-0.4% EYE DROPS) 15 Ml Drops, 1 DROP EACHEYE QID for dryness, #30 ML 5 Refills 07/25/18 Clonazepam (CLONAZEPAM) 0.5 Mg Tablet, 1 TAB PO BID for anxiety, #60 TAB 1 Refill 07/25/18 Oxycodone Hcl (OXYCONTIN) 20 Mg Tab.er.12h, 10 MG PO BID for PAIN, TAB 07/25/18 Trazodone Hcl (TRAZODONE HCL) 100 Mg Tablet, 1 TAB PO QHS for insomnia, #30 TAB 1 Refill 07/25/18 Sertraline Hcl (ZOLOFT) 100 Mg Tablet, 2 TAB PO DAILY for Depression, #30 TAB 5 Refills 10/29/16 Acetaminophen (TYLENOL) 325 Mg Tablet, 650 MG PO PRN Q6HRS PRN for MILD PAIN / TEMP 10/29/16 Metoclopramide Hcl (REGLAN) 10 Mg Tablet, 5 MG PO TID for DYSPEPSIA, #60 TAB 0 Refills 10/29/16 Nitroglycerin (NITROSTAT) 0.4 Mg Tab.subl, 0.4 MG SL PRN Q10MIN PRN for CHEST PAIN, BOTTLE 10/29/16 Folic Acid/Vitamin B Comp W-C (NEPHRO-FRANCISCO TABLET) 0.8 Mg Tablet, 1 TAB PO DAILY, #30 TAB 5 Refills 10/29/16 Polyethylene Glycol 3350 (MIRALAX) 17 Gm Powd.pack, 1 PACKET PO BID for CONSTIPATION, #30 PACKET 3 Refills 10/29/16 Levothyroxine Sodium (LEVOTHYROXINE SODIUM) 75 Mcg Tablet, 1 TAB PO DAILY for hypothyroid, #30 TAB 5 Refills 10/29/16 Discontinued Reported Medications Hydralazine Hcl (HYDRALAZINE HCL) 25 Mg Tablet, 1 TAB PO TID for HTN, #90 TAB 5 Refills 12/26/18 Clonidine Hcl (CLONIDINE HCL) 0.3 Mg Tablet, 0.3 MG TD WEEKLY for High BP, TAB 11/14/18 WAYLON CONCEPCION MD December 28, 2018 10:20
[2018-12-28 11:00] VITALS: BP 180/88
--- NOTE | 2018-12-28 13:03 | NUR ---
SS following up with discharge planning. Discharge orders received for return to [facility], ; fax [phone]. SS phoned and faxed clinical updates and discharge orders to [facility]. Pt will discharge today and return to [facility] at 1400. [facility] to provide transportation. Pt's RN notified.
--- NOTE | 2018-12-28 13:18 | DS ---
DATE OF DISCHARGE: 12/28/2018 HISTORY OF PRESENT ILLNESS: The patient is a 63-year-old male patient who is a resident at [facility] and was yet again admitted with chest pain, for which we did 3 sets of cardiac enzymes that were slightly elevated in the context of end-stage renal disease. He was seen by the Cardiology team and he underwent a nuclear stress test. The patient's stress test did not show any evidence of ischemia or infarct. He has normal left ventricular systolic function, ejection fraction calculated at 53%. He is a low risk for cardiac events. His blood pressure was suboptimally controlled. So Coreg 6.25 mg was added and hydralazine was increased to 50 mg 3 times a day. PHYSICAL EXAMINATION: GENERAL: When I saw him this morning, he looked well and was clearly in no apparent respiratory distress. He was pale, but not jaundiced or cyanosed from thyromegaly. No jugular venous distention. No lower limb edema. VITAL SIGNS: His heart rate was 74, blood pressure was 173/88, temperature was 97.8, respiratory rate was 14 and oxygen saturation was 96% on room air. HEENT: Examination of the head, eyes, ears, nose and throat showed he was normocephalic, atraumatic. NECK: Supple. HEART: Showed normal first and second heart sounds. No gallop, rub or murmur. CHEST: Clear to auscultation. No crepitation or rhonchi. ABDOMEN: Distended, soft and nontender. NEUROLOGIC: He was very hard of hearing, but otherwise all other cranial nerves were intact. He moved his upper extremities without difficulty. He had paraplegia secondary to spina bifida cystica. He is completely anuric and hemodialysis dependent. LABORATORY DATA: His lab work as of this morning showed a serum sodium 136, potassium 5.6, chloride 96, bicarbonate 29, anion gap of 11, BUN 67, creatinine was 7.7, estimated GFR was 7.2, his glucose was 103 and calcium was 10.1. His white cell count was 5000, hemoglobin 11, hematocrit 35, MCV 100 and platelet count 246,000. DISCHARGE MEDICATIONS: He was discharged on the following medications: Clonidine TTS patch 0.3 mg once a week, carvedilol 6.25 mg twice a day, Relistor 150 mg p.o. daily, Flonase 2 sprays to each nostril once a day, bisacodyl 10 mg daily, linaclotide for Linzess 290 mcg daily, trazodone 100 mg at bedtime, hydralazine 50 mg 3 times a day and metoclopramide 5 mg 3 times a day before meals. He is on isosorbide mononitrate 30 mg daily, calcium acetate 2001 mg 3 times a day with meals, calcium carbonate 1000 mg 3 times a day, sertraline 200 mg daily, Artificial Tears 1 drop to both eyes 4 times a day, polyethylene glycol 17 grams twice a day, Protonix 40 mg daily, oxycodone 10 mg every 12 hours, meclizine 12.5 mg every 8 hours, magnesium citrate 296 mL p.o. daily for constipation, loperamide 4 mg daily, duloxetine 60 mg twice a day, levothyroxine 75 mcg daily, vitamin B complex for Nephro-Dangelo 1 tablet once a day, docusate sodium 100 mg twice a day, clonazepam 0.5 mg twice a day and cetirizine 10 mg daily. He is also on Movantik 25 mg daily, tramadol 50 mg every 6 hours. He is on Percocet 5/325 one tablet every 4 hours, acetaminophen 650 mg every 4 hours and nifedipine for Procardia-XL 60 mg twice a day. FINAL DISCHARGE DIAGNOSES: 1. Chest pain, myocardial infarction ruled out. He has a nuclear stress test, which showed no evidence of any ischemia or infarct. 2. Hypertensive urgency with blood pressure slightly better, although not yet optimally controlled. 3. He has end-stage renal disease, on hemodialysis on Tuesday, Tuesday and Tuesday. 4. Hypothyroidism. 5. Chronic opioid-induced constipation. 6. Spina bifida cystica with paraplegia. WAYLON CONCEPCION MD DR: ADDIE/joe JOB#: [id number] / [id number]
[2018-12-28] MEDS ORDERED: IV NORMAL SALINE 1000ML BAG 1,000 ML IV PRN ×2 (14:26)
[2018-12-28] MEDS ORDERED: DIALYSIS PATIENT. MC PRN ×2 (14:30)
[2018-12-28] MEDS ORDERED: ALBUMIN HUMAN 25% 200 ML IV PRN (14:30)
[2018-12-28] MEDS ORDERED: 0.9 % SODIUM CHLORIDE 10 ML DISP.SYRIN. IV PRN ×2 (14:30)
--- NOTE | 2018-12-28 15:14 | NUR ---
SS following up with discharge planning. At 1340, pt's RN contacted and stated that pt was supposed to get dialysis this morning prior to discharge but dialysis has not gotten pt at this time. She requested that SS cancel transport until pt receives dialysis. contacted [facility] and cancelled pt's transportation.
[2018-12-28 19:35] VITALS: BP 149/78
[2018-12-28] MEDS: traZODone 100 MG TABLET. PO SCH (21:03)
[2018-12-28 23:05] VITALS: BP 104/68
[2018-12-29 03:13] VITALS: BP 156/82
[2018-12-29 07:00] VITALS: BP 151/77
--- NOTE | 2018-12-29 08:39 | NUR ---
SS following up with discharge planning. Pt's RN reported pt ready for discharge. SS phoned and faxed discharge orders to [facility], ; fax [phone]. Pt will discharge today and return to [facility] at 0930. [facility] to provide transport. Pt, pt's family, and pt's RN notified.
[2018-12-29] MEDS: POLYETHYLENE GLYCOL 3350 17 GM PACKET. PO SCH (08:45)
[2018-12-29] MEDS: CALCIUM CARBONATE 500 MG TABLET PO SCH (08:46)
[2018-12-29] MEDS: METOCLOPRAMIDE 10 MG TABLET. PO SCH (08:46)
[2018-12-29] MEDS: DOCUSATE SODIUM 100 MG CAPSULE. PO SCH (08:46)
[2018-12-29] MEDS: clonazePAM 0.5 MG TABLET PO SCH (08:47)
[2018-12-29] MEDS: DULoxetine HCL 30 MG CAPSULE.DR PO SCH (08:47)
[2018-12-29] MEDS: FOLIC/VIT B COMP W-C (RENAL) TABLET. PO SCH (08:47)
[2018-12-29] MEDS: SERTRALINE 50 MG TABLET. PO SCH (08:48)
[2018-12-29] MEDS: CALCIUM ACETATE 667 MG CAPSULE PO SCH (08:48)
[2018-12-29] MEDS: LEVOTHYROXINE 75 MCG TABLET PO SCH (08:49)
[2018-12-29] MEDS: BISACODYL 5 MG TABLET.DR. PO SCH (08:49)
[2018-12-29] MEDS: CARVEDILOL 6.25 MG TABLET. PO SCH (08:49)
[2018-12-29 08:50] VITALS: BP 151/77
[2018-12-29] MEDS: PANTOPRAZOLE 40 MG TABLET.DR. PO SCH (08:50)
[2018-12-29] MEDS: hydrALAZINE 25 MG TABLET PO SCH (08:50)
[2018-12-29] MEDS: ISOSORBIDE MONONITRATE ER 30 MG TAB.ER.24H PO SCH (08:50)
[2018-12-29] MEDS: CETIRIZINE HCL 10 MG TABLET. PO SCH (08:51)
[2018-12-29] MEDS: oxyCODONE ER 10 MG TAB.ER.12H PO SCH (08:51)
[2018-12-29] MEDS: FLUTICASONE 50MCG/NASAL SPRAY 16GM BOTTLE. NS SCH (09:00)
[2018-12-29] MEDS: POLYVINYL ALCOHOL 1.4% OPHTH SOLUTION 15ML BOTTLE. OU SCH (09:00)
[2018-12-29] MEDS: ONDANSETRON ODT 4 MG TAB.RAPDIS. PO PRN (09:21)
--- NOTE | 2018-12-29 09:45 | NUR ---
DISCHARGED PATIENT TO [facility] PER TRANSPORTATION. REPORT GIVEN TO RN. PIV AND HEART MONITOR REMOVED..
--- NOTE | 2018-12-29 12:25 | PDOC ---
Renal-Progress Notes Subjective Notes Notes DOING WELL, GOING TO BE DISCHARGED TODAY History of Present Illness Hx of present illness DOING WELL Vitals Vitals Vital Signs Date Time Temp Pulse Resp B/P (MAP) Pulse Ox O2 Delivery O2 Flow Rate FiO2 12/29/18 08:51 16 95 Room Air 2.0 12/29/18 08:50 73 151/77 12/29/18 07:00 98.2 98.2 Weight Weight [ ] I.O. Intake and Output Intake and Output 12/29/18 07:00 Intake Total 180 ml Balance 180 ml Intake Oral 180 ml Review of Systems Constitutional: yes: alert, oriented Ears/Nose/Throat: Yes: no symptom reported Eyes: Yes: no symptom reported Pulmonary: Yes no symptom reported Cardiovascular: Yes chest pain Genitourinary: Yes: no symptom reported Musculoskeletal: Yes: muscle stiffness Skin: Yes no symptom reported Psychiatric/Neurological: Yes: no symptom reported Endocrine: Yes: no symptom reported Physical Exam General Appearance: no apparent distress Skin: warm Respiratory: bilateral CTA Heart: S1S2, RRR Abdomen: soft, bowel sounds present Extremities: pulses present Neurology: alert, follow commands Musculoskeletal: Other Assessment Assessment IMP HYPERKALEMIA HYPONATREMIA CHEST PAIN ANEMIA ESRD HTN PLAN D/C ING TODAY PT WILL GO TO HD OP TOMORROW UPDATED OP HD FACILITY KELLY CALHOUN MD December 29, 2018 12:25
--- NOTE | 2018-12-29 12:46 | DS ---
DATE OF DISCHARGE: 12/29/2018 ADDENDUM The patient was supposed to be discharged yesterday to [facility]. Apparently, he has dialysis late and the facility could not arrange for transportation late in the evening and therefore, he will be discharged today to continue on all his medication. Continue with his hemodialysis as an outpatient. WAYLON CONCEPCION MD DR: ADDIE/joe JOB#: [id number] / [id number]
[2019-01-01] MEDS ORDERED: cloNIDine TTS-3 1 PATCH PATCH.TDWK TD SCH (09:00)
[2019-01-02] MEDS ORDERED: cloNIDine HCL 0.3 MG TABLET FT SCH (09:00)
== END 2018-12-29 12:29 | disposition home or self-care (01) | DRG 291 ==
LOC: ER 04:58 → 2 SOUTH 05:58
PROVIDERS: ADMIT Internal Medicine; ATTEND Internal Medicine
PROC: 5A1D70Z Performance of Urinary Filtration, Intermittent, Less than 6 Hours Per Day (ICD-10-PCS; principal; 2018-12-28)
DX: I13.2 Hypertensive heart and chronic kidney disease with heart failure and with stage 5 chronic kidney disease, or end stage renal disease (principal); I50.33 Acute on chronic diastolic (congestive) heart failure; N18.6 End stage renal disease; G82.20 Paraplegia, unspecified; E87.1 Hypo-osmolality and hyponatremia; E87.5 Hyperkalemia; I16.0 Hypertensive urgency; R07.89 Other chest pain; D64.9 Anemia, unspecified; E03.9 Hypothyroidism, unspecified; E66.9 Obesity, unspecified; E78.00 Pure hypercholesterolemia, unspecified; E78.5 Hyperlipidemia, unspecified; G40.909 Epilepsy, unspecified, not intractable, without status epilepticus; G89.4 Chronic pain syndrome; I27.20 Pulmonary hypertension, unspecified; K21.9 Gastro-esophageal reflux disease without esophagitis; K31.84 Gastroparesis; K59.03 Drug induced constipation; E21.3 Hyperparathyroidism, unspecified; F12.90 Cannabis use, unspecified, uncomplicated; F32.9 Major depressive disorder, single episode, unspecified; F41.9 Anxiety disorder, unspecified; I05.0 Rheumatic mitral stenosis; Q05.9 Spina bifida, unspecified; G47.00 Insomnia, unspecified; Z88.1 Allergy status to other antibiotic agents; Z88.2 Allergy status to sulfonamides; Z68.34 Body mass index [BMI] 34.0-34.9, adult; Z82.3 Family history of stroke; Z82.49 Family history of ischemic heart disease and other diseases of the circulatory system; Z87.891 Personal history of nicotine dependence; Z90.49 Acquired absence of other specified parts of digestive tract; Z90.5 Acquired absence of kidney; Z99.2 Dependence on renal dialysis; Z88.8 Allergy status to other drugs, medicaments and biological substances; T40.2X5A Adverse effect of other opioids, initial encounter
CPT/HCPCS: 36415; 71045; 78452; 80048; 80053; 83690; 83735; 83880; 84100; 84484; 85025; 85027; 85379; 93005; 93017; 96374; A9500; J0360; J2270; J2405; J2785; J8597; Q0162; 99285-25

== ENCOUNTER → 2019-08-29 | Day surgery (SDC) | payer MEDICARE, MEDICAID ==
[~2019-08-29] MED LIST changes: +BENZ100C PO; +BISA-42 PO; +CALC500T31 PO; +CARV25TA PO; -CETI10TA22 PO; +CETI10TA24 PO; +CLON-77 PO; -CLON0.5T11 PO; +HYDR-2868 PO; +HYDR-2869 PO; +HYDROmorphone 2 MG/ML VIAL IV PRN; +IV NORMAL SALINE 1000ML BAG 1,000 ML IV ONE; +IV NORMAL SALINE 1000ML BAG 1,000 ML IV SCH; +IV RINGERS,LACTATED 1000ML 1,000 ML IV ONE; +IV RINGERS,LACTATED 1000ML 1,000 ML IV SCH; +LIDOCAINE 2% PF 5 ML VIAL. ONE; +LOPE-101 PO; -LOPE2CAP88 PO; +MAGN296S68 PO; -MECL12.52 PO; +MECL12.573 PO; +METH150T PO; +MORPHINE SULFATE 2 MG/ML VIAL. IV PRN; +NIFE60TA PO; -NITR0.4T SL; +NITR0.4T24 SL; -OMEP20CA10 PO; +OMEP20CA16 PO; +ONDA4TAB12 PO; +ONDANSETRON PF 4 MG/2 ML VIAL. IV PRN; +OSEL75CA PO; +PROPOFOL 20 ML IV ONE; +TRAZ-123 PO; -TRAZ-86 PO; +VENTOLIN HFA18 GM INH; +fentaNYL PF VIAL 100 MCG/2 ML VIAL IV PRN
[2019-08-29 08:44] VITALS: BP 144/65
--- NOTE | 2019-08-29 12:06 | CONS ---
DATE OF CONSULTATION: 08/29/2019 REFERRING PHYSICIAN: Eduarda Mas MD REASON FOR CONSULTATION: Colorectal screening. 1 HISTORY OF PRESENT ILLNESS: A 64-year-old male with past medical history significant for end-stage renal disease, on hemodialysis; hypertension; hypothyroidism; gastroesophageal reflux disease, is seen for interval colonoscopy. Last exam was approximately 10 years ago, has alternating diarrhea and constipation without melena and/or hematochezia. Weight and appetite are stable. He is otherwise without additional complaints. PAST MEDICAL HISTORY: End-stage renal disease; hypertension; hypothyroidism; organic heart disease, coronary variety. Past history is also significant for spina bifida. ALLERGIES: SULFA, PENICILLIN AND GABAPENTIN. MEDICATIONS: Include Coreg, Zyrtec, clonazepam, Catapres, Cymbalta, Flonase, hydralazine, levothyroxine, Linzess, Relistor, Reglan, Movantik, nifedipine, Nitrostat, OxyContin, Protonix, sertraline, tramadol and trazodone. PAST SURGICAL HISTORY: Include fistula on the right arm for dialysis. SOCIAL HISTORY: Nonsmoker, nondrinker at this time. FAMILY HISTORY: Noncontributory. REVIEW OF SYSTEMS: Per records. PHYSICAL EXAMINATION: GENERAL: Reveals a well-nourished, well-developed male. VITAL SIGNS: Temp is 97.7, pulse 65, respirations 20. LUNGS: Clear. CARDIOVASCULAR: S1, S2 without S3, S4 or appreciable murmur. ABDOMEN: Reveals soft abdomen, normal bowel sounds, without appreciable hepatosplenomegaly. IMPRESSION: Colorectal screening is warranted at this time. Risks and benefits of procedure including risk of hemorrhage and perforation were discussed with the patient in the office including risk of hemorrhage and perforation and is willing to proceed. RODRIGUEZ LAYNE MD DR: CARLOS/joe JOB#: [id number] / [id number] EDUARDA Amor MD
== END ==
LOC: ENDOS 06:37
PROVIDERS: ATTEND Internal Medicine Gastroenterology
DX: K59.00 Constipation, unspecified (principal); K57.30 Diverticulosis of large intestine without perforation or abscess without bleeding; K64.0 First degree hemorrhoids; I13.11 Hypertensive heart and chronic kidney disease without heart failure, with stage 5 chronic kidney disease, or end stage renal disease; N18.6 End stage renal disease; E03.9 Hypothyroidism, unspecified; Z88.1 Allergy status to other antibiotic agents; Z88.0 Allergy status to penicillin; Z88.8 Allergy status to other drugs, medicaments and biological substances
CPT/HCPCS: 45378; J2001; J2704

== ENCOUNTER 2019-09-10 05:33 | Emergency (ER) | payer MEDICARE, MEDICAID ==
[~2019-09-10 05:33] MED LIST changes: -BENZ100C PO; -HYDROmorphone 2 MG/ML VIAL IV PRN; -IV NORMAL SALINE 1000ML BAG 1,000 ML IV ONE; -IV NORMAL SALINE 1000ML BAG 1,000 ML IV SCH; -IV RINGERS,LACTATED 1000ML 1,000 ML IV ONE; -IV RINGERS,LACTATED 1000ML 1,000 ML IV SCH; -LIDOCAINE 2% PF 5 ML VIAL. ONE; -MORPHINE SULFATE 2 MG/ML VIAL. IV PRN; -ONDANSETRON PF 4 MG/2 ML VIAL. IV PRN; -OSEL75CA PO; -PROPOFOL 20 ML IV ONE; -VENTOLIN HFA18 GM INH; -fentaNYL PF VIAL 100 MCG/2 ML VIAL IV PRN
--- NOTE | 2019-09-10 06:01 | PHYS DOC ---
Past Medical History Past Medical History: Anemia, Anxiety, Depression, GERD, High Cholesterol, Hypertension, Renal Disease, Renal Failure Additional Past Medical Histor: spina bifida- paraplegia, thyroid disease, insomnia, DIPLOPIA (TARSHA MYERS DO) Past Surgical History: Appendectomy, Cholecystectomy Additional Past Surgical Histo: stoma to abdomen, L kidney removed, ? bladder removed, hiatal hernia (TARSHA MYERS DO) Alcohol Use: None Drug Use: Marijuana (TARSHA MYERS DO) Adult General Chief Complaint Chief Complaint: SHORTNESS OF BREATH HPI HPI Patient is a 64 year old long term patient with history of end-stage renal disease, spina bifida, hypertension who presents with productive cough with shortness of breath and difficulty sleeping. Patient states he woke this morning feeling his though he was and acute volume overload. Patient dialyzes Tuesday, and Tuesday completed last dialysis session 2 days ago. He denies fe ken, chills, sweats. No other acute symptoms or complaints. [] (TARSHA MYERS DO) Review of Systems Review of Systems ROS as per HPI All other systems were reviewed and found to be within normal limits, except as documented in this note. (TARSHA MYERS DO) Current Medications Current Medications Current Medications Medications (Trade) Dose Ordered Sig/Pema Start Time Stop Time Status Last Admin Dose Admin Acetaminophen/ Hydrocodone Bitart (Lortab 5/325) 1 tab 1X ONCE 09/10/19 07:15 09/10/19 07:16 DC 09/10/19 07:24 1 TAB Clonidine HCl (Catapres) 0.1 mg 1X ONCE 09/10/19 07:15 09/10/19 07:16 DC 09/10/19 07:23 0.1 MG Ondansetron HCl (Zofran Odt) 4 mg 1X ONCE 09/10/19 07:15 09/10/19 07:16 DC 09/10/19 07:22 4 MG Oseltamivir Phosphate (Tamiflu) 75 mg 1X STAT 09/10/19 07:06 09/10/19 07:15 DC 09/10/19 07:23 75 MG (KRISTIE LEAHY MD) Allergies Allergies Allergies Coded Allergies Type Severity Reaction Last Updated Verified Sulfa (Sulfonamide Antibiotics) Allergy Intermediate 08/29/19 Yes amoxicillin Allergy Intermediate 08/29/19 Yes gabapentin Allergy Intermediate 08/29/19 Yes pregabalin Allergy Intermediate 08/29/19 Yes I S O L A T I O N *CONTACT* Allergy Unknown 08/29/19 Yes (KRISTIE LEAHY MD) Physical Exam Physical Exam Constitutional: Well developed, well nourished, no acute distress, non-toxic appearance. [] HENT: Normocephalic, atraumatic, bilateral external ears normal, oropharynx moist, nose normal. [] Eyes: PERRLA, EOMI, conjunctiva normal. [] Neck: Normal range of motion. [] Cardiovascular:Heart rate regular rhythm, no murmur, peripheral edema [] Lungs & Thorax: Patient's are nonlabored, coarse rhonchi throughout occasional expiratory wheeze. [] Abdomen: Bowel sounds normal, soft, no tenderness. [] Skin: Warm, dry. [] Back: No tenderness. [] Extremities: No tenderness, no cyanosis, no clubbing, ROM intact, no edema. [] Neurologic: Alert and oriented X 3, paralysis of lower extremities. [] Psychologic: Affect normal, judgement normal, mood normal. [] (TARSHA MYERS DO) Current Patient Data Vital Signs Vital Signs Date Time Temp Pulse Resp B/P (MAP) Pulse Ox O2 Delivery O2 Flow Rate FiO2 09/10/19 09:00 86 18 92 Room Air 09/10/19 08:30 156/79 (104) 09/10/19 05:33 99.4 99.4 (KRISTIE LEAHY MD) Lab Values Laboratory Tests Test 09/10/19 06:25 09/10/19 07:07 09/10/19 07:20 Influenza Type A Antigen Negative (NEGATIVE) Influenza Type B Antigen Positive (NEGATIVE) White Blood Count 7.2 x10^3/uL (4.0-11.0) Red Blood Count 3.81 x10^6/uL (4.30-5.70) L Hemoglobin 12.6 g/dL (13.0-17.5) L Hematocrit 38.1 % (39.0-53.0) L Mean Corpuscular Volume 100 fL (79-100) Mean Corpuscular Hemoglobin 33 pg (25-35) Mean Corpuscular Hemoglobin Concent 33 g/dL (31-37) Red Cell Distribution Width 14.5 % (11.5-14.5) Platelet Count 151 x10^3/uL (140-400) Neutrophils (%) (Auto) 91 % (31-73) H Lymphocytes (%) (Auto) 3 % (24-48) L Monocytes (%) (Auto) 4 % (0-9) Eosinophils (%) (Auto) 0 % (0-3) Basophils (%) (Auto) 1 % (0-3) Neutrophils # (Auto) 6.6 x10^3/uL (1.8-7.7) Lymphocytes # (Auto) 0.2 x10^3/uL (1.0-4.8) L Monocytes # (Auto) 0.3 x10^3/uL (0.0-1.1) Eosinophils # (Auto) 0.0 x10^3/uL (0.0-0.7) Basophils # (Auto) 0.1 x10^3/uL (0.0-0.2) Segmented Neutrophils % 78 % (35-66) H Band Neutrophils % 12 % (0-9) H Lymphocytes % 5 % (24-48) L Monocytes % 5 % (0-10) Platelet Estimate Adequate (ADEQUATE) Sodium Level 139 mmol/L (136-145) Potassium Level 5.1 mmol/L (3.5-5.1) Chloride Level 98 mmol/L (98-107) Carbon Dioxide Level 27 mmol/L (21-32) Anion Gap 14 (6-14) Blood Urea Nitrogen 86 mg/dL (8-26) H Creatinine 7.3 mg/dL (0.7-1.3) H Estimated GFR (Cockcroft-Gault) 7.6 BUN/Creatinine Ratio 12 (6-20) Glucose Level 104 mg/dL (70-99) H Lactic Acid Level 1.6 mmol/L (0.4-2.0) Calcium Level 9.3 mg/dL (8.5-10.1) Total Bilirubin 0.8 mg/dL (0.2-1.0) Aspartate Amino Transferase (AST) 43 U/L (15-37) H Alanine Aminotransferase (ALT) 23 U/L (16-63) Alkaline Phosphatase 116 U/L (46-116) Troponin I Quantitative 0.035 ng/mL (0.000-0.055) GI-Ejb-E-Type Natriuretic Peptide > 91294 pg/mL (0-124) H Total Protein 7.8 g/dL (6.4-8.2) Albumin 4.0 g/dL (3.4-5.0) Albumin/Globulin Ratio 1.1 (1.0-1.7) O2 Saturation 93 % (92-99) Arterial Blood pH 7.41 (7.35-7.45) Arterial Blood pCO2 at Patient Temp 37 mmHg (35-46) Arterial Blood pO2 at Patient Temp 69 mmHg (65-108) Arterial Blood HCO3 23 mmol/L (21-28) Arterial Blood Base Excess -1 mmol/L (-3-3) FiO2 21 Laboratory Tests 09/10/19 07:07 Laboratory Tests 09/10/19 07:07 (KRISTIE LEAHY MD) EKG EKG [EKG; sinus rhythm, rate 93, no acute ST-T wave changes, QTC 470] (TARSHA MYERS DO) Radiology/Procedures Radiology/Procedures [CX-ray: Pending] (TARSHA MYERS DO) Radiology/Procedures [facility] [address] [place] [address] IMAGING REPORT Signed PATIENT: EDWARD DOOLEY ACCOUNT: [id number] : 1955 LOCATION: ER AGE: 64 SEX: M EXAM STATUS: REG ER ORD. PHYSICIAN: TARSHA MYERS DO REASON: SOA PROCEDURE: CHEST AP ONLY AP chest. HISTORY: Short of air AP view was taken of the chest. Heart is upper normal in size. There is a shoulder prosthesis on the left. There are no definite infiltrates. There is no effusion. IMPRESSION: 1. No acute infiltrates. Electronically signed by: Anthony Avelar MD (09/10/2019 6:52 AM) [facility] DICTATED and SIGNED BY: ANTHONY AVELAR MD DATE: 09/10/19651 (KRISTIE LEAHY MD) Course & Med Decision Making Course & Med Decision Making Pertinent Labs and Imaging studies reviewed. (See chart for details) [End-stage renal disease with shortness of breath. Chest x-ray, labs pending. Current endorsed to oncoming ERP at 06:00] (TARSHA MYERS DO) Course & Med Decision Making [facility] Patient had stable vital signs except for elevation of blood pressure that improved with clonidine. Patient had positive flu B with unremarkable labs except for elevation of BUN/creatinine as a chronic problem. Patient treated with Tamiflu and normal cranial and felt better. Plan discharge patient to the long term with diagnose of influenza B and instruction to follow up with primary care physician. (KRISTIE LEAHY MD) Dragon Disclaimer Dragon Disclaimer This electronic medical record was generated, in whole or in part, using a voice recognition dictation system. (TARSHA MYERS DO) Departure Departure Impression: Primary Impression: Influenza B Additional Impressions: Hypertensive urgency ESRD (end stage renal disease) on dialysis Spina bifida Hypertension, accelerated Disposition: HOME, SELF-CARE (long term at 0756) Condition: IMPROVED Referrals: UNKNOWN PCP NAME (PCP) Patient Instructions: Cough, Adult, Influenza, Adult, Managing Your High Blood Pressure Additional Instructions: Continue current home medication Follow-up with your primary care physician in 2-3 days Return to ER if not getting better Thank you for visiting [facility]. We appreciate you trusting us with your care. If any additional problems come up don't hesitate to return to visit us. Please follow up with your primary care provider so they can plan additional care if needed and know about the problem that you had. If symptoms worsen come back to the Emergency Department. Any concerning symptoms that start such as chest pain, shortness of air, weakness or numbness on one side of the body, running high fevers or any other concerning symptoms return to the ER. Scripts Albuterol Sulfate (VENTOLIN HFA INHALER) 18 Gm Hfa.aer.ad 2 PUFF INH QID for FOR ASTHMA, #1 INHALER 0 Refills Prov: KRISTIE LEAHY MD 09/10/19 Benzonatate (TESSALON PERLE) 100 Mg Capsule 1 CAP PO TID for cough, #21 CAP Prov: KRISTIE LEAHY MD 09/10/19 Oseltamivir Phosphate (TAMIFLU) 75 Mg Capsule 1 CAP PO BID, #10 CAP Prov: KRISTIE LEAHY MD 09/10/19 Problem Qualifiers Additional Impressions: Spina bifida Spinal region: unspecified Presence of hydrocephalus: unspecified hydrocephalus presence Qualified Codes: Q05.9 - Spina bifida, unspecified TARSHA MYERS DO Sep 10, 2019 06:01 KRISTIE LEAHY MD Sep 10, 2019 07:05
--- NOTE | 2019-09-10 06:55 | RAD ---
AP chest. HISTORY: Short of air AP view was taken of the chest. Heart is upper normal in size. There is a shoulder prosthesis on the left. There are no definite infiltrates. There is no effusion. IMPRESSION: 1. No acute infiltrates. Electronically signed by: Anthony Avelar MD (09/10/2019 6:52 AM) [facility]
[2019-09-10 06:57] LABS: INFLUENZA A PATIENT NEGATIVE (NEGATIVE)
[2019-09-10 07:01] LABS: INFLUENZA B PATIENT POSITIVE (NEGATIVE)
[2019-09-10] MEDS ORDERED: OSELTAMIVIR 75 MG CAPSULE PO STA (07:06)
[2019-09-10] MEDS ORDERED: HYDROcodone/APAP 5/325MG 1 TAB TABLET PO ONE (07:15)
[2019-09-10] MEDS ORDERED: cloNIDine HCL 0.1 MG TABLET PO ONE (07:15)
[2019-09-10] MEDS ORDERED: ONDANSETRON ODT 4 MG TAB.RAPDIS. PO ONE (07:15)
[2019-09-10 07:20] LABS: BASO # 0.1 x10^3/uL (0.0-0.2); BASO % 1 % (0-3); EOS % 0 % (0-3); HEMATOCRIT 38.1 % (39.0-53.0); HEMOGLOBIN 12.6 g/dL (13.0-17.5); LYMPH # 0.2 x10^3/uL (1.0-4.8); LYMPH % 3 % (24-48); MEAN CORPUSCULAR HEMOGLOBIN 33 pg (25-35); MEAN CORPUSCULAR HGB CONC 33 g/dL (31-37); MEAN CORPUSCULAR VOLUME 100 fL (79-100); MONO # 0.3 x10^3/uL (0.0-1.1); MONO % 4 % (0-9); NEUT # 6.6 x10^3/uL (1.8-7.7); NEUT % 91 % (31-73); PLATELET COUNT 151 x10^3/uL (140-400); RED BLOOD COUNT 3.81 x10^6/uL (4.30-5.70); RED CELL DISTRIBUTION WIDTH 14.5 % (11.5-14.5); WHITE BLOOD COUNT 7.2 x10^3/uL (4.0-11.0)
[2019-09-10 07:26] LABS: BASE EXCESS ABG -1 mmol/L (-3-3); HCO3 ABG 23 mmol/L (21-28); PCO2 ABG 37 mmHg (35-46); PO2 ABG 69 mmHg (65-108); SAT O2 ABG 93 % (92-99)
[2019-09-10 07:27] LABS: FIO2 ABG 21
[2019-09-10 07:42] LABS: CALCIUM 9.3 mg/dL (8.5-10.1); CREATININE 7.3 mg/dL (0.7-1.3); GFR 7.6; POTASSIUM 5.1 mmol/L (3.5-5.1)
[2019-09-10 07:56] LABS: ALBUMIN/GLOBULIN RATIO 1.1 (1.0-1.7); TOTAL BILIRUBIN 0.8 mg/dL (0.2-1.0); TOTAL PROTEIN 7.8 g/dL (6.4-8.2)
[2019-09-10] MEDS ORDERED: BENZ100C PO (08:00)
[2019-09-10] MEDS ORDERED: VENTOLIN HFA18 GM INH (08:00)
[2019-09-10] MEDS ORDERED: OSEL75CA PO (08:00)
[2019-09-10 08:30] VITALS: BP 156/79
[2019-09-10 09:41] LABS: % BANDS 12 % (0-9); % LYMPHS 5 % (24-48); % MONOS 5 % (0-10); % SEGS 78 % (35-66); PLT ESTIMATE ADEQUATE (ADEQUATE)
--- NOTE | 2019-09-10 11:20 | EKG ---
[facility] [address] [place] [address] Test Date: 2019-09-10 Test Time: 05:41:17 Pat Name: EDWARD DOOLEY Department: Room: Gender: M [employer]: : 1955 Requested By: KRISTIE LEAHY Order Number: [id number] Reading MD: Measurements Intervals Danube Rate: 93 P: 0 LA: 146 QRS: 9 QRSD: 96 T: 31 QT: 376 QTc: 470 Interpretive Statements SINUS RHYTHM QRS(T) CONTOUR ABNORMALITY CONSIDER ANTEROLATERAL MYOCARDIAL DAMAGE POSSIBLY ABNORMAL ECG RI6.01 No previous ECG available for comparison
== END 2019-09-10 09:27 | disposition home or self-care (01) ==
LOC: ER 05:33
DX: J10.1 Influenza due to other identified influenza virus with other respiratory manifestations (principal); I10 Essential (primary) hypertension; I16.0 Hypertensive urgency; N18.6 End stage renal disease; Q05.9 Spina bifida, unspecified; F41.9 Anxiety disorder, unspecified; F32.9 Major depressive disorder, single episode, unspecified; K21.9 Gastro-esophageal reflux disease without esophagitis; E78.00 Pure hypercholesterolemia, unspecified; F12.90 Cannabis use, unspecified, uncomplicated; Z90.89 Acquired absence of other organs; Z99.2 Dependence on renal dialysis; Z88.1 Allergy status to other antibiotic agents; Z88.2 Allergy status to sulfonamides; Z88.8 Allergy status to other drugs, medicaments and biological substances; Z98.890 Other specified postprocedural states
CPT/HCPCS: 36415; 36600; 71045; 80053; 82805; 83605; 83880; 84484; 85007; 85025; 87040; 87804; 93005; 99285; Q0162

== ENCOUNTER 2020-05-21 15:51 | Emergency (ER) | payer MEDICARE, MEDICAID ==
[~2020-05-21] VITALS: Ht 160 cm; Wt 81.0 kg
[~2020-05-21 15:51] MED LIST changes: +AMIN30LI2 PO; +ASPI81TA59 PO; +BENZ100C PO; -CETI10TA24 PO; +CETI10TA74 PO; +CLON1PAT TD; +CYCL5TAB PO; +DICL100G54 TP; +GUAI237L83 PO; +ISOS30TA4 PO; +LUBI24CA7 PO; +MIDO5TAB4 PO; +MINE454C9 TP; +MIRT7.5T8 PO; +OSEL75CA PO; +OXYC-325 PO; +PSYL3.4P PO; +SEVE800T9 PO; +VENTOLIN HFA18 GM INH
--- NOTE | 2020-05-21 17:34 | RAD ---
EXAM: HIP LEFT 2V WITH PELVIS, KNEE LEFT 3V 05/21/2020 4:39 PM CLINICAL INDICATION:Left hip pain after fall COMPARISON:Left femur radiograph 01/17/2020 TECHNIQUE:AP view the pelvis and AP and frog-leg lateral view of the left hip. AP and lateral views of the left knee FINDINGS: Left hip: Exam is limited by body habitus and superimposed gas-filled bowel. There is no displaced fracture. Sequela of acetabular dysplasia with chronic deformities and dislocations of the proximal femora are redemonstrated. Hardware in the right proximal femur is unchanged. Lower lumbar spine is unremarkable. No pubic symphysis widening. The sacrum is largely obscured. Left knee: No new fracture. The healing distal femoral metaphyseal fracture with mild impaction is unchanged in alignment. There is maturing callus formation around the fracture margins. The fracture line is indistinct. There is diffuse osteopenia the femoral condyles and proximal tibia and fibula. Trace joint effusion. IMPRESSION: 1. Left hip radiograph is limited by body habitus and superimposed bowel. There is no definite displaced fracture. Unchanged sequela of acetabular dysplasia with chronic deformities and dislocations of the proximal femora. 2. Healing left distal femoral fracture, unchanged in alignment. No new abnormality of the left knee. Electronically signed by: Daniela Armendariz MD (05/21/2020 5:31 PM) [id number]
--- NOTE | 2020-05-21 19:02 | PHYS DOC ---
Past Medical History Past Medical History: Anemia, Anxiety, Depression, GERD, High Cholesterol, Hypertension, Renal Disease, Renal Failure Additional Past Medical Histor: spina bifida- paraplegia, thyroid disease, insomnia, DIPLOPIA Past Surgical History: Appendectomy, Cholecystectomy Additional Past Surgical Histo: stoma to abdomen, L kidney removed, ? bladder removed, hiatal hernia Smoking Status: Former Smoker Alcohol Use: None Drug Use: Marijuana General Adult EDM: Chief Complaint: MECHANICAL FALL HPI: HPI: Patient is a 65 year old male with a history of spina bifida who presents to the emergency department via EMS for complaints of left hip and left knee pain after falling off of his bed on 05/17/20. Patient was sent after having outpatient x-rays that were concerning for a possible left hip dislocation and left tibia fracture the patient denies any pain at this time, he reports that it only hurts if the area is palpated where he is moving. Patient is extremely hard of hearing therefore HPI is limited. Review of Systems: Review of Systems: Constitutional: Denies fever or chills. [] Musculoskeletal: See HPI Integument: Denies rash. [] Neurologic: Denies focal weakness or sensory changes. [] Heart Score: Risk Factors: Risk Factors: DM, Current or recent (<one month) smoker, HTN, HLP, family history of CAD, obesity. Risk Scores: Score 0 - 3: 2.5% MACE over next 6 weeks - Discharge Home Score 4 - 6: 20.3% MACE over next 6 weeks - Admit for Clinical Observation Score 7 - 10: 72.7% MACE over next 6 weeks - Early Invasive Strategies Allergies: Allergies: Allergies Coded Allergies Type Severity Reaction Last Updated Verified Sulfa (Sulfonamide Antibiotics) Allergy Intermediate 08/29/19 Yes amoxicillin Allergy Intermediate 08/29/19 Yes gabapentin Allergy Intermediate 08/29/19 Yes pregabalin Allergy Intermediate 08/29/19 Yes I S O L A T I O N *CONTACT* Allergy Unknown 08/29/19 Yes Physical Exam: PE: Constitutional: Well developed, well nourished, no acute distress, non-toxic appearance. [] HENT: Normocephalic, atraumatic, bilateral external ears normal, nose normal. [] Eyes: PERRLA, EOMI, conjunctiva normal, no discharge. [] Neck: Normal range of motion, no stridor. [] Cardiovascular:Heart rate regular rhythm Lungs & Thorax: Respirations even and unlabored, no retractions, no respiratory distress Abdomen: soft, no tenderness Skin: Warm, dry, no erythema, no rash. [] Extremities: Lower left extremity; there is shortening and rotation that appears to be chronic, normal sensation, increased pain with range of motion, cap refill less than 2 seconds, no cyanosis, no edema. [] Neurologic: Alert and oriented X 3, no focal deficits noted. [] Psychologic: Affect normal, judgement normal, mood normal. [] Current Patient Data: Vital Signs: Vital Signs Date Time Temp Pulse Resp B/P (MAP) Pulse Ox O2 Delivery O2 Flow Rate FiO2 05/21/20 15:51 98.0 82 21 133/70 (91) 97 Room Air 98.0 EKG: EKG: [] Radiology/Procedures: Radiology/Procedures: PROCEDURE: HIP LEFT 2V WITH PELVIS EXAM: HIP LEFT 2V WITH PELVIS, KNEE LEFT 3V 05/21/2020 4:39 PM CLINICAL INDICATION:Left hip pain after fall COMPARISON:Left femur radiograph 01/17/2020 TECHNIQUE:AP view the pelvis and AP and frog-leg lateral view of the left hip. AP and lateral views of the left knee FINDINGS: Left hip: Exam is limited by body habitus and superimposed gas-filled bowel. There is no displaced fracture. Sequela of acetabular dysplasia with chronic deformities and dislocations of the proximal femora are redemonstrated. Hardware in the right proximal femur is unchanged. Lower lumbar spine is unremarkable. No pubic symphysis widening. The sacrum is largely obscured. Left knee: No new fracture. The healing distal femoral metaphyseal fracture with mild impaction is unchanged in alignment. There is maturing callus formation around the fracture margins. The fracture line is indistinct. There is diffuse osteopenia the femoral condyles and proximal tibia and fibula. Trace joint effusion. IMPRESSION: 1. Left hip radiograph is limited by body habitus and superimposed bowel. There is no definite displaced fracture. Unchanged sequela of acetabular dysplasia with chronic deformities and dislocations of the proximal femora. 2. Healing left distal femoral fracture, unchanged in alignment. No new abnormality of the left knee. [] Course & Med Decision Making: Course & Med Decision Making Pertinent Labs and Imaging studies reviewed. (See chart for details) [] Dragon Disclaimer: Dragon Disclaimer: This electronic medical record was generated, in whole or in part, using a voice recognition dictation system. Departure Departure Impression: Primary Impression: Chronic hip pain Qualified Codes: M25.552 - Pain in left hip; G89.29 - Other chronic pain Disposition: HOME, SELF-CARE Condition: STABLE Referrals: VIOLET JACOME MD (PCP) TYESHA MURPHY II, MD Patient Instructions: Hip Pain Additional Instructions: The changes on x-ray today were chronic, there was no evidence of an acute fracture. Follow up with your primary care doctor or Dr. Murphy in 2-3 days if symptoms persist. Return to the ER if symptoms worsen. Justicifation of Admission Dx: Justifications for Admission: Justification of Admission Dx: N/A BRUNA BROWN APRN May 21, 2020 19:02
[2020-05-21 19:17] VITALS: BP 169/88
== END 2020-05-21 20:20 | disposition home or self-care (01) ==
LOC: ER 15:51
DX: G89.29 Other chronic pain (principal); M25.552 Pain in left hip; M25.562 Pain in left knee; G89.11 Acute pain due to trauma; K21.9 Gastro-esophageal reflux disease without esophagitis; E78.00 Pure hypercholesterolemia, unspecified; I12.9 Hypertensive chronic kidney disease with stage 1 through stage 4 chronic kidney disease, or unspecified chronic kidney disease; N18.9 Chronic kidney disease, unspecified; Z87.891 Personal history of nicotine dependence; Z90.49 Acquired absence of other specified parts of digestive tract; Z90.89 Acquired absence of other organs; Z98.890 Other specified postprocedural states; Z88.1 Allergy status to other antibiotic agents; Z88.2 Allergy status to sulfonamides; Z91.041 Radiographic dye allergy status; Z88.8 Allergy status to other drugs, medicaments and biological substances; W06.XXXA Fall from bed, initial encounter; Y93.89 Activity, other specified; Y92.89 Other specified places as the place of occurrence of the external cause; Y99.8 Other external cause status
CPT/HCPCS: 73502; 73562; 99284

== ENCOUNTER 2020-08-09 03:47 | Emergency (ER) | payer MEDICARE, MEDICAID ==
[~2020-08-09] VITALS: Ht 162.6 cm; Wt 90.9 kg
[~2020-08-09 03:47] MED LIST changes: -MECL12.573 PO; +MECL12.574 PO; -NALO25TA2 PO; +NALO25TA4 PO
--- NOTE | 2020-08-09 03:54 | PHYS DOC ---
Past Medical History Past Medical History: Anemia, Anxiety, Depression, GERD, High Cholesterol, Hypertension, Renal Disease, Renal Failure Additional Past Medical Histor: spina bifida- paraplegia, thyroid disease, insomnia, DIPLOPIA Past Surgical History: Appendectomy, Cholecystectomy Additional Past Surgical Histo: stoma to abdomen, L kidney removed, ? bladder removed, hiatal hernia Smoking Status: Former Smoker Alcohol Use: None Drug Use: Marijuana General Adult HPI: HPI: 65-year-old male past medical history significant for spina bifida, yesterday and multiple other comorbidities, presents the ED brought in by EMS after patient excellently rolled out of bed just prior to arrival. Patient complains of right shoulder pain and left knee pain. Has a known h/o left femur fx 12/2019. Is asking for analgesia. Denies any loss of consciousness, headache or midline neck stiffness. Is not on any anticoagulants. Review of Systems: Review of Systems: Constitutional: Denies fever or chills. [] Eyes: Denies change in visual acuity. [] HENT: Denies nasal congestion or sore throat. [] Respiratory: Denies cough or shortness of breath. [] Cardiovascular: Denies chest pain or edema. [] GI: Denies abdominal pain, nausea, vomiting, bloody stools or diarrhea. [] Musculoskeletal: Denies midline back pain, saddle anesthesia, urinary or bowel retention or incontinence Integument: Denies rash. [] Neurologic: Denies headache, focal weakness or sensory changes. [] Endocrine: Denies polyuria or polydipsia. [] Lymphatic: Denies swollen glands. [] Psychiatric: Denies depression or anxiety. [] Heart Score: Risk Factors: Risk Factors: DM, Current or recent (<one month) smoker, HTN, HLP, family history of CAD, obesity. Risk Scores: Score 0 - 3: 2.5% MACE over next 6 weeks - Discharge Home Score 4 - 6: 20.3% MACE over next 6 weeks - Admit for Clinical Observation Score 7 - 10: 72.7% MACE over next 6 weeks - Early Invasive Strategies Allergies: Allergies: Allergies Coded Allergies Type Severity Reaction Last Updated Verified Sulfa (Sulfonamide Antibiotics) Allergy Intermediate 08/29/19 Yes amoxicillin Allergy Intermediate 08/29/19 Yes gabapentin Allergy Intermediate 08/29/19 Yes pregabalin Allergy Intermediate 08/29/19 Yes I S O L A T I O N *CONTACT* Allergy Unknown 08/29/19 Yes Physical Exam: PE: Constitutional: Well developed, well nourished, no acute distress, non-toxic appearance. HENT: Normocephalic, atraumatic, Eyes: EOMI, conjunctiva normal, no discharge. Neck: Normal range of motion, supple, Cardiovascular: S1/2 present, regular rhythm Lungs & Thorax: Speaking in full sentences, bilateral equal chest rise, no ta chypnea or increased work of breathing Abdomen: soft, no tenderness, multiple abdominal scars, no rigidity or guarding Skin: Warm, dry, no erythema, no rash. [] Back: No tenderness, no CVA tenderness. [] Extremities: No tenderness, no cyanosis, no edema, right shoulder with FROM-old scar over joint, no pain at R AC joint, left knee pain, no focal ttp, no left hip ttp or pain with pelvic rocking, ttp over left patella -no pain over left fibular head, left hip or left ankle Neurologic: Alert and oriented X 3, normal motor function, normal sensory function, no focal deficits noted. [] Psychologic: Affect normal, judgement normal, mood normal. [] EKG: EKG: [] Radiology/Procedures: Radiology/Procedures: []IMAGING REPORT Signed PATIENT: EDWARD DOOLEY ACCOUNT: [id number] : 1955 LOCATION: ER AGE: 65 SEX: M EXAM STATUS: PRE ER ORD. PHYSICIAN: SIXTO ESCOBAR DO REASON: fall PROCEDURE: SHOULDER 2+V RIGHT INDICATION: Reason: fall / Spl. Instructions: / History: COMPARISON: July 02, 2020 and April 2020. IMPRESSION: Right shoulder: 3 views obtained. Superior elevation of the right humeral head which can be seen with chronic rotator cuff tear. Degenerative changes of the right shoulder and acromioclavicular joint. Surgical clips at the proximal arm. Scoliotic curvature of the partially seen spine. Linear lucency at the acromion. Could be secondary to a vascular channel but a nondisplaced fracture is not excluded. Pelvis: Single view obtained. Chronic dislocation of the right femur with superior migration of the femur. Acetabulum has a dysmorphic shallow appearance. Chronic dislocation of the left hip as well with superior migration of the left femur and shallow acetabulum. Limited assessment of the pelvis secondary to extensive dilatation of the overlying large bowel. Would correlate for possible causes such as severe constipation or colonic ileus. Left femur: 6 views obtained. Superior dislocation is seen on this exam as well but the left hip joint with dysmorphic changes. Fracture at the distal femur with some callus formation again identified. There is some lucency seen at the fracture line with some regions of fusion as well. Joint effusion is seen. Electronically signed by: Familia Dinh MD (08/09/2020 5:25 AM) DESKTOP- [id number] DICTATED and SIGNED BY: FAMILIA DINH MD DATE: 08/09/20 [id number] 0 Course & Med Decision Making: Course & Med Decision Making Pertinent Labs and Imaging studies reviewed. (See chart for details) Imaging c/w chronic findings. EMR was reviewed and patient's pelvic x-ray is similar to December 2019 patient was admitted with concern for ileus versus Monitor syndrome (also similar to 04/2020). Patient reports he had a normal bowel movement last night, has no nausea, or vomiting is tolerating ice chips and water in the ED. has no active abdominal or back pain. Pt is sitting upright, no pain with repeat abdominal exams. Pt in no distress. Will discharge home with strict ED return precautions were given for abdominal pain, n/v, back pain, joint swelling, fever or neurologic deficits. Encouraged urgent outpatient follow-up with PMD and orthopedic surgery. Life-threatening processes were considered but are low suspicion at this time, given history, physical exam and ED workup. Pt was educated on all prescription medications and adverse effects. All patient's questions were answered and pt was stable at time of discharge. Life/limb-threatening differential includes but is not limited to, intracranial hemorrhage, diffuse axonal injury, spinal cord syndrome, unstable cervical fracture or SCIWORA, fractures or joint dislocations, neurovascular injuries, organ injury or laceration, pneumothorax, ileus/obstruction/mesenteric ischemia, pneumoperitoneum, pericardial tamponade, unstable pelvic fracture, compartment syndrome, flail chest or respiratory distress, burn injury or asphyxiation I spoken with the patient and her caregivers. I explained the patient's condition, diagnoses and treatment plan based on the information available to me at this time. I have answered the patient and her caregiver's questions and ad dressed any concerns. The patient and her caregivers have a good understanding of patient's diagnosis, condition and treatment plan as can be expected at this point. Vital signs have been stable. Patient's condition is stable and appropriate for discharge from the emergency department. Patient will pursue further outpatient evaluation with primary care physician or other designated or consulting physician as outlined in the discharge instructions. The patient and/or caregivers are agreeable to this plan of care and follow-up instructions have been explained in detail. The patient and/or caregivers have received these instructions in written form and have expressed an understanding of the discharge instructions. The patient and/or caregivers are aware that any significant change of condition or worsening of symptoms should prompt immediate return to this or the closest emergency department or call to [facility] Disclaimer: Gorge Disclaimer: This electronic medical record was generated, in whole or in part, using a voice recognition dictation system. Departure Departure Impression: Primary Impression: Fall from bed Additional Impression: Chronic right shoulder pain Disposition: 01 DC HOME SELF CARE/HOMELESS Condition: STABLE Referrals: VIOLET JACOME MD (PCP) in 2- 3days for re-evaluation Patient Instructions: Osteoarthritis, Shoulder Exercises, Generic, SportsMed Additional Instructions: FOLLOW UP WITH ORTHOPEDICS: Orthopaedic Sports Medicine Orthopaedic Surgery [facility] Address: [address] [place] [id number] EMERGENCY DEPARTMENT GENERAL DISCHARGE INSTRUCTIONS Thank you for coming to [facility] Emergency Department (ED) today and trusting us with you care. We trust that you had a positive experience in our Emergency Department. If you wish to speak to the department management, you may call the Director at [phone]. YOUR FOLLOW UP INSTRUCTIONS ARE FOLLOWS: 1. Do you have a private Doctor? If you do not have a private doctor, please ask for a resource list of physicians or clinics that may be able to assist you with follow up care. 2. The Emergency Physicain has interpreted your x-rays. The X-Ray specialist will also review them. If there is a change in the findings, you will be notified in 48 hours when at all possible. 3. A lab test or culture has been done, your results will be reviewed and you will be notified if you need a change in treatment. ADDITIONAL INSTRUCTIONS AND INFORMATION: 1. Your care today has been supervised by a physician who is specially trained in emergency care. Many problems require more than one evaluation for a complete diagnosis and treatment. We recommend that you schedule your follow up appointment as recommended to ensure complete treatment of you illness or injury. If you are unable to obtain follow up care and continue to have a problem, or if your condition worsens, we recommend that you return to the ED. 2. We are not able to safely determine your condition over the phone nor are we able to give sound medical advice over the phone. For these safety reasons, if you call for medical advice we will ask you to come to the ED for further evaluation. 3. If you have any questions regarding these discharge instructions please call the ED at [phone]. SAFETY INFORMATION: In the interest of safety, wellness, and injury prevention; we encourage you to wear your sealbelt, if you smoke; quite smoking, and we encourage family to use a protective helmet for bicycling and other sporting events that present an increased risk for head injury. IF YOUR SYMPTOMS WORSEN OR NEW SYMPTOMS DEVELOP, OR YOU HAVE CONCERNS ABOUT YOUR CONDITION; OR IF YOUR CONDITION WORSENS WHILE YOU ARE WAITING FOR YOUR FOLLOW UP APPOINT MENT; EITHER CONTACT YOUR PRIMARY CARE DOCTOR, THE PHYSICIAN WHOSE NAME AND NUMBER YOU WERE GIVEN, OR RETURN TO THE ED IMMEDIATELY. SIXTO CARROLL DO Aug 09, 2020 03:54
--- NOTE | 2020-08-09 05:28 | RAD ---
INDICATION: Reason: fall / Spl. Instructions: / History: COMPARISON: July 02, 2020 and April 2020. IMPRESSION: Right shoulder: 3 views obtained. Superior elevation of the right humeral head which can be seen with chronic rotator cuff tear. Degenerative changes of the right shoulder and acromioclavicular joint. S urgical clips at the proximal arm. Scoliotic curvature of the partially seen spine. Linear lucency at the acromion. Could be secondary to a vascular channel but a nondisplaced fracture is not excluded. Pelvis: Single view obtained. Chronic dislocation of the right femur with superior migration of the f emur. Acetabulum has a dysmorphic shallow appearance. Chronic dislocation of the left hip as well wit h superior migration of the left femur and shallow acetabulum. Limited assessment of the pelvis secon angelita to extensive dilatation of the overlying large bowel. Would correlate for possible causes such a s severe constipation or colonic ileus. Left femur: 6 views obtained. Superior dislocation is seen on this exam as well but the left hip join t with dysmorphic changes. Fracture at the distal femur with some callus formation again identified. There is some lucency seen at the fracture line with some regions of fusion as well. Joint effusion i s seen. Electronically signed by: Jeremías Oscar MD (08/09/2020 5:25 AM) [id number]
[2020-08-09] MEDS ORDERED: ACETAMINOPHEN 500 MG TABLET PO ONE (05:30)
[2020-08-09] MEDS ORDERED: ONDANSETRON ODT 4 MG TAB.RAPDIS. PO ONE (06:20)
[2020-08-09 08:00] VITALS: BP 128/73
== END 2020-08-09 08:29 | disposition home or self-care (01) ==
LOC: ER 03:47
DX: G89.29 Other chronic pain (principal); M25.511 Pain in right shoulder; M25.562 Pain in left knee; K21.9 Gastro-esophageal reflux disease without esophagitis; E78.00 Pure hypercholesterolemia, unspecified; I12.9 Hypertensive chronic kidney disease with stage 1 through stage 4 chronic kidney disease, or unspecified chronic kidney disease; N18.9 Chronic kidney disease, unspecified; Z87.891 Personal history of nicotine dependence; Z90.89 Acquired absence of other organs; Z90.49 Acquired absence of other specified parts of digestive tract; Z88.1 Allergy status to other antibiotic agents; Z88.2 Allergy status to sulfonamides; Z91.041 Radiographic dye allergy status; Z88.8 Allergy status to other drugs, medicaments and biological substances
CPT/HCPCS: 72170; 73030; 73552; 99285

== ENCOUNTER 2021-03-02 06:45 | Inpatient (IN) | payer MEDICARE, MEDICAID ==
[~2021-03-02] VITALS: Ht 154.9 cm; Wt 99.8 kg
[~2021-03-02 06:45] MED LIST changes: -CALC650T6 PO; +CALC650T7 PO; -ISOS20TA2 PO; +ISOS20TA6 PO; -ISOS30TA4 PO; +ISOS30TA68 PO; -LIDO30CR TP; +LIDO30CR2 TP; -MECL12.574 PO; +MECL12.582 PO; +MIRT-7 PO; -MIRT15TA3 PO
--- NOTE | 2021-03-02 06:52 | EKG ---
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
--- NOTE | 2021-03-02 07:01 | PHYS DOC ---
Past Medical History Past Medical History: Anemia, Anxiety, Depression, GERD, High Cholesterol, Hypertension, Renal Disease, Renal Failure Additional Past Medical Histor: spina bifida- paraplegia, thyroid disease, insomnia, DIPLOPIA Past Surgical History: Appendectomy, Cholecystectomy Additional Past Surgical Histo: stoma to abdomen, L kidney removed, ? bladder removed, hiatal hernia Smoking Status: Former Smoker Alcohol Use: None Drug Use: Marijuana General Adult EDM: Chief Complaint: CHEST PAIN HPI: HPI: 66-year-old male past medical history of spina bifida, hypothyroidism, ESRD (MWF), HTN, HLD and iron deficiency anemia, presents the ED brought in by EMS from dialysis, complains of "pressure in the center of my chest" that radiates to his left arm and back with associated shortness of breath. Patient states pain started at 3 AM while he was watching TV, was initially sharp in nature. Reports he was at [facility] 1 month ago and had a stress test, no cardiac catheterization. No history of known CAD. Denies any cocaine abuse. EMS gave aspirin and nitro, pain has decreased. Did not have dialysis today. Review of Systems: Review of Systems: Constitutional: Denies fever or chills. [] Eyes: Denies change in visual acuity. [] HENT: Denies nasal congestion or sore throat. [] Respiratory: Denies cough or hemoptysis Cardiovascular: Denies syncope or palpitations GI: Denies abdominal pain, nausea, vomiting, : Denies dysuria or hematuria Musculoskeletal: Denies back pain or joint pain. [] Integument: Denies rash or diaphoresis Neurologic: Denies headache, focal weakness or sensory changes. [] Endocrine: Denies polyuria or polydipsia. [] Lymphatic: Denies swollen glands. [] Psychiatric: Denies depression or anxiety. [] Heart Score: C/O Chest Pain: Yes HEART Score for Chest Pain: HEART Score for Chest Pain Response (Comments) Value History Slighlty/Non-Suspicious 0 ECG Nonspecific Repolarizatio 1 Age >45 - < 65 1 Risk Factors >3 Risk Factors or Hx CAD 2 Troponin < Normal Limit 0 Total 4 Risk Factors: Risk Factors: DM, Current or recent (<one month) smoker, HTN, HLP, family history of CAD, obesity. Risk Scores: Score 0 - 3: 2.5% MACE over next 6 weeks - Discharge Home Score 4 - 6: 20.3% MACE over next 6 weeks - Admit for Clinical Observation Score 7 - 10: 72.7% MACE over next 6 weeks - Early Invasive Strategies Allergies: Allergies: Allergies Coded Allergies Type Severity Reaction Last Updated Verified Sulfa (Sulfonamide Antibiotics) Allergy Intermediate 08/29/19 Yes amoxicillin Allergy Intermediate 08/29/19 Yes gabapentin Allergy Intermediate 08/29/19 Yes pregabalin Allergy Intermediate 08/29/19 Yes I S O L A T I O N *CONTACT* Allergy Unknown 08/29/19 Yes Physical Exam: PE: Constitutional: Well developed, well nourished, no acute distress, non-toxic appearance. HENT: Normocephalic, atraumatic, hearing aids in place Eyes: EOMI, conjunctiva normal, no discharge. Neck: Normal range of motion, supple, Cardiovascular: S1/2 present, regular rhythm, points to distal sternum as location of pain Lungs & Thorax: Speaking in full sentences, bilateral equal chest rise, no tachypnea or increased work of breathing Abdomen: soft, no tenderness, obese Skin: Warm, dry, Extremities: No tenderness, no cyanosis, equal, pitting lower extremity edema Neurologic: Alert and oriented X 3, normal motor function, normal sensory function, no focal deficits noted. [] Psychologic: Affect normal, judgement normal, mood normal. [] EKG: EKG: Sinus rhythm at 70 bpm, no axis deviation, QTC 467, no ST elevations or ST depressions 0720 sinus rhythm 73 bpm, no axis deviation, QTC 464, no T wave inversions, no ST elevations or ST depressions Radiology/Procedures: Radiology/Procedures: []IMAGING REPORT Signed PATIENT: HOLLY FRANCES ACCOUNT: [id number] : 09/25/1960 LOCATION: ER AGE: 60 SEX: F EXAM STATUS: REG ER ORD. PHYSICIAN: SIXTO ESCOBAR DO REASON: cp PROCEDURE: PORTABLE CHEST 1V INDICATION: Reason: cp / Spl. Instructions: / History: COMPARISON: December 15, 2020 FINDINGS: Single view of chest obtained. Enlarged cardiomediastinal silhouette. Density projecting over the cardiac silhouette which could be secondary to hiatal hernia. Appearance the lungs is similar to prior without definite new region of consolidation. Left lung base is obscured secondary to cardiac silhouette obscuring. There is some sclerotic foci projecting over the bilateral proximal humerus again seen. IMPRESSION: * Enlarged cardiac silhouette with additional density projecting over the cardiac silhouette which could be from hiatal hernia. * No definite new region of airspace consolidation. * Sclerotic foci bilateral proximal humerus partially seen. Most commonly from bone island unless the patient has known history of neoplasm Electronically signed by: Jeremías Dinh MD (03/02/2021 7:16 AM) [id number] DICTATED and SIGNED BY: JEREMÍAS DINH MD DATE: 03/02/21 [id number] 0 Course & Med Decision Making: Course & Med Decision Making Pertinent Labs and Imaging studies reviewed. (See chart for details) Concern for chest pain in a moderate risk patient. Will admit for further medical management and cardiology consultation. I have spoken with the patient and/or caregivers. I have explained the patient's condition, diagnosis and treatment plan based on the information available to me at this time. I have answered the patient's and/or caregivers questions and answered any concerns. The patient and/or caregivers have as good an understanding of the patient's diagnosis, condition and treatment plan as can be expected at this point. The patient has been stabilized within the capability of the emergency department. The patient will be transported for further care and management or will be moved to an observation or inpatient service. I have communicated with the staff or medical practitioner taking over this patient's care. Dragon Disclaimer: Dragveronica Disclaimer: This electronic medical record was generated, in whole or in part, using a voice recognition dictation system. Departure Departure Impression: Primary Impression: Chest pain Disposition: ADMITTED INPATIENT Admitting Physician: Madi. Chandler Condition: STABLE Referrals: WAYLON CONCEPCION MD (PCP) SIXTO ESCOBAR DO Mar 02, 2021 07:01
--- NOTE | 2021-03-02 07:21 | RAD ---
INDICATION: Reason: cp / Spl. Instructions: / History: COMPARISON: August 2019 FINDINGS: Single view of chest obtained. Hypoexpanded examination with enlarged cardiac silhouette. Left shoulder arthroplasty changes. Severe degenerative changes of the right shoulder. Mild interstitial and groundglass opacities IMPRESSION: * Hypoexpanded exam with interstitial and groundglass opacities. A portion of this is likely seconda ry to hypoventilatory changes but superimposed mild edema or interstitial infiltrate could have this appearance. * The cardiac silhouette is enlarged. Electronically signed by: Jeremías Oscar MD (03/02/2021 7:18 AM) [id number]
[2021-03-02 08:07] LABS: BASO # 0.1 x10^3/uL (0.0-0.2); BASO % 1 % (0-3); EOS # 0.1 x10^3/uL (0.0-0.7); EOS % 2 % (0-3); HEMATOCRIT 28.6 % (39.0-53.0); HEMOGLOBIN 9.8 g/dL (13.0-17.5); LYMPH # 0.7 x10^3/uL (1.0-4.8); LYMPH % 12 % (24-48); MEAN CORPUSCULAR HEMOGLOBIN 34 pg (25-35); MEAN CORPUSCULAR HGB CONC 34 g/dL (31-37); MEAN CORPUSCULAR VOLUME 99 fL (79-100); MONO # 0.4 x10^3/uL (0.0-1.1); MONO % 7 % (0-9); NEUT # 4.9 x10^3/uL (1.8-7.7); NEUT % 78 % (31-73); PLATELET COUNT 179 x10^3/uL (140-400); RED CELL DISTRIBUTION WIDTH 13.8 % (11.5-14.5); WHITE BLOOD COUNT 6.3 x10^3/uL (4.0-11.0)
[2021-03-02 09:19] LABS: CALCIUM 8.7 mg/dL (8.5-10.1); CREATININE 8.6 mg/dL (0.7-1.3); GFR 6.3; POTASSIUM 5.5 mmol/L (3.5-5.1)
[2021-03-02 09:27] LABS: ALBUMIN 3.5 g/dL (3.4-5.0); MAGNESIUM 3.3 mg/dL (1.8-2.4); TOTAL BILIRUBIN 0.6 mg/dL (0.2-1.0); TOTAL PROTEIN 6.9 g/dL (6.4-8.2)
[2021-03-02] MEDS ORDERED: HYDROmorphone 2 MG/ML VIAL IVP ONE ×2 (10:00→13:30)
--- NOTE | 2021-03-02 11:19 | PDOC2 ---
CONSULT Date of Consult Date of Consult DATE: 03/02/21 TIME: 11:15 Reason for Consult Reason for Consult: ESRD, SOB AND CHEST PAIN Referring Physician Referring Physician: JALIL Identification/Chief Complaint Chief Complaint CHEST PAIN AND SOB Source Source: Chart review, Patient History of Present Illness Reason for Visit: Chief Complaint: CHEST PAIN THIS IS A 66 YR OLD WITH ESRD. HAS OP HD ON MWF. WENT TO HD THIS AM AND HAD CHEST PAIN. DID NOT GET BETTER WITH [facility]. EMS WAS CALLED AND PT BROUGHT TO THE ER. DID NOT GET HIS HD TX. CARDIOLOGY EVAL TO BE DONE. HAS A RIGHT ARM AVF FOR HIS HD. LABS ARE C/W HIS ESRD Past Medical History Cardiovascular: HTN CENTRAL NERVOUS SYSTEM: Seizure, Other (SPINA BIFIDA) GI: GERD Heme/Onc: Anemia NOS Psych: Other Musculoskeletal: Other Renal/: Chronic renal failure, Other Endocrine: Hypothyroidism, Hyperparathyroidism Past Surgical History Past Surgical History: Appendectomy, Cholecystectomy, Hernia Repair, Other Family History Family History: Hypertension, Stroke Social History ALCOHOL: none Drugs: None Lives: [facility]Way Current Problem List Problem List Problems Medical Problems: (1) Chest pain Status: Acute Current Medications Current Medications Current Medications Hydromorphone HCl (Dilaudid) 1 mg 1X ONCE IVP Last administered on 03/02/21at 10:38; Start 03/02/21 at 10:00; Stop 03/02/21 at 10:01; Status DC Active Scripts Active Hydrocerin Cream (Lanolin Alcohol/Mo/W.pet/[place]) 454 Gm Cream..g. 1 Adrienne TP PRN Q1HR PRN 30 Days Amitiza (Lubiprostone) 24 Mcg Capsule 24 Mcg PO BIDWMEALS 30 Days Metamucil Fiber Singles Packet (Psyllium Husk/Aspartame) 3.4 Gm Powd.pack 1 Pkt PO QHS 30 Days Midodrine Hcl 5 Mg Tablet 5 Mg PO PRN TID PRN 30 Days Ventolin Hfa Inhaler (Albuterol Sulfate) 18 Gm Hfa.aer.ad 2 Puff INH QID Colace (Docusate Sodium) 100 Mg Capsule 1 Cap PO BID Reported Voltaren (Diclofenac Sodium) 100 Gm Gel..gram. 1 Gm TP PRN Q6HRS PRN 30 Days apply to affected area(s) Robitussin Cough-Chest Dm Liq (Guaifenesin/Dextromethorphan) 237 Ml Liquid 20 Ml PO PRN Q8HRS PRN Renvela (Sevelamer Carbonate) 800 Mg Tablet 1 Tab PO TID 30 Days Pro-Stat Liquid (Amino Acids/Protein Hydrolys) 30 Ml Liquid.pkt 30 Ml PO BID Movantik (Naloxegol Oxalate) 25 Mg Tablet 25 Mg PO DAILY Mirtazapine 7.5 Mg Tablet 1 Tab PO QHS 30 Days Cyclobenzaprine Hcl 5 Mg Tablet 1 Tab PO PRN DAILY PRN Children's Aspirin (Aspirin) 81 Mg Tab.chew 1 Tab PO DAILY 30 Days Ondansetron Odt (Ondansetron) 4 Mg Tab.rapdis 1 Tab PO PRN Q6HRS PRN Procardia Xl (Nifedipine) 60 Mg Tab.er.24 1 Tab PO BID Magnesium Citrate 296 Ml Solution 296 Ml PO PRN DAILY PRN Flonase Allergy Relief (Fluticasone Propionate) 9.9 Ml Beulah.susp 2 Sprays NS DAILY Calcium Carbonate 500 Mg Tablet 1,000 Mg PO TIDACHC Dulcolax (Bisacodyl) 5 Mg Tablet.dr 10 Mg PO DAILY Meclizine Hcl 12.5 Mg Tablet 12.5 Mg PO Q8HRS PRN Zyrtec (Cetirizine Hcl) 10 Mg Tablet 1 Tab PO DAILY Protonix (Pantoprazole Sodium) 20 Mg Tablet.dr 40 Mg PO DAILY Cymbalta (Duloxetine Hcl) 60 Mg Capsule.dr 60 Mg PO BID Systane 0.3-0.4% Eye Drops (Propylene Glycol/Peg 400) 15 Ml Drops 1 Drop EACHEYE QID Clonazepam (Clonazepam) 0.5 Mg Tablet 1 Tab PO BID Trazodone Hcl 100 Mg Tablet 1 Tab PO QHS Tylenol (Acetaminophen) 325 Mg Tablet 650 Mg PO PRN Q6HRS PRN Nitrostat (Nitroglycerin) 0.4 Mg Tab.subl 0.4 Mg SL PRN Q10MIN PRN Nephro-Dangelo Tablet (Folic Acid/Vitamin B Comp W-C) 0.8 Mg Tablet 1 Tab PO DAILY Miralax (Polyethylene Glycol 3350) 17 Gm Powd.pack 1 Packet PO BID Levothyroxine Sodium 75 Mcg Tablet 1 Tab PO DAILY Allergies Allergies: Coded Allergies: Sulfa (Sulfonamide Antibiotics) (Verified Allergy, Intermediate, 08/29/19) amoxicillin (Verified Allergy, Intermediate, 08/29/19) gabapentin (Verified Allergy, Intermediate, 08/29/19) pregabalin (Verified Allergy, Intermediate, 08/29/19) I S O L A T I O N *CONTACT* (Verified Allergy, Unknown, 08/29/19) mrsa ROS General: YES: Fatigue, Appetite PSYCHOLOGICAL ROS: YES: Depression Eyes: Yes Decreased vision HEENT: YES: Heacaches Respiratory: YES: Cough, Shortness of breath Cardiovascular: yes Chest Pain Gastrointestinal: Yes Constipation Musculoskeletal: Yes Muscular Weakness Neurological: Yes Weakness, Yes Other (PARAPLEGIA) Skin: Yes Dry Skin Physical Exam General: Alert, Oriented X3, Cooperative, No acute distress HEENT: Atraumatic Lungs: Clear to auscultation Heart: Regular rate Abdomen: Normal bowel sounds, Soft, No tenderness Extremities: No clubbing Skin: No breakdown Neuro: Normal speech Psych/Mental Status: Mental status NL, Mood NL MUSCULOSKELETAL: No joint tenderness, No deformity Vitals VITALS Vital Signs Date Time Temp Pulse Resp B/P (MAP) Pulse Ox O2 Delivery O2 Flow Rate FiO2 03/02/21 10:38 22 96 Room Air 03/02/21 06:45 97.8 76 161/79 (93) 97.8 Labs Labs Laboratory Tests Test 03/02/21 07:50 03/02/21 08:35 White Blood Count 6.3 x10^3/uL (4.0-11.0) Red Blood Count 2.90 x10^6/uL (4.30-5.70) Hemoglobin 9.8 g/dL (13.0-17.5) Hematocrit 28.6 % (39.0-53.0) Mean Corpuscular Volume 99 fL (79-100) Mean Corpuscular Hemoglobin 34 pg (25-35) Mean Corpuscular Hemoglobin Concent 34 g/dL (31-37) Red Cell Distribution Width 13.8 % (11.5-14.5) Platelet Count 179 x10^3/uL (140-400) Neutrophils (%) (Auto) 78 % (31-73) Lymphocytes (%) (Auto) 12 % (24-48) Monocytes (%) (Auto) 7 % (0-9) Eosinophils (%) (Auto) 2 % (0-3) Basophils (%) (Auto) 1 % (0-3) Neutrophils # (Auto) 4.9 x10^3/uL (1.8-7.7) Lymphocytes # (Auto) 0.7 x10^3/uL (1.0-4.8) Monocytes # (Auto) 0.4 x10^3/uL (0.0-1.1) Eosinophils # (Auto) 0.1 x10^3/uL (0.0-0.7) Basophils # (Auto) 0.1 x10^3/uL (0.0-0.2) Sodium Level 134 mmol/L (136-145) Potassium Level 5.5 mmol/L (3.5-5.1) Chloride Level 95 mmol/L (98-107) Carbon Dioxide Level 27 mmol/L (21-32) Anion Gap 12 (6-14) Blood Urea Nitrogen 77 mg/dL (8-26) Creatinine 8.6 mg/dL (0.7-1.3) Estimated GFR (Cockcroft-Gault) 6.3 BUN/Creatinine Ratio 9 (6-20) Glucose Level 82 mg/dL (70-99) Calcium Level 8.7 mg/dL (8.5-10.1) Magnesium Level 3.3 mg/dL (1.8-2.4) Total Bilirubin 0.6 mg/dL (0.2-1.0) Aspartate Amino Transf (AST/SGOT) 19 U/L (15-37) Alanine Aminotransferase (ALT/SGPT) 22 U/L (16-63) Alkaline Phosphatase 152 U/L (46-116) Troponin I Quantitative < 0.017 ng/mL (0.000-0.055) QM-Coz-Z-Type Natriuretic Peptide 9462 pg/mL (0-124) Total Protein 6.9 g/dL (6.4-8.2) Albumin 3.5 g/dL (3.4-5.0) Albumin/Globulin Ratio 1.0 (1.0-1.7) Lipase 124 U/L (73-393) Laboratory Tests Test 03/02/21 07:50 03/02/21 08:35 White Blood Count 6.3 x10^3/uL (4.0-11.0) Red Blood Count 2.90 x10^6/uL (4.30-5.70) Hemoglobin 9.8 g/dL (13.0-17.5) Hematocrit 28.6 % (39.0-53.0) Mean Corpuscular Volume 99 fL (79-100) Mean Corpuscular Hemoglobin 34 pg (25-35) Mean Corpuscular Hemoglobin Concent 34 g/dL (31-37) Red Cell Distribution Width 13.8 % (11.5-14.5) Platelet Count 179 x10^3/uL (140-400) Neutrophils (%) (Auto) 78 % (31-73) Lymphocytes (%) (Auto) 12 % (24-48) Monocytes (%) (Auto) 7 % (0-9) Eosinophils (%) (Auto) 2 % (0-3) Basophils (%) (Auto) 1 % (0-3) Neutrophils # (Auto) 4.9 x10^3/uL (1.8-7.7) Lymphocytes # (Auto) 0.7 x10^3/uL (1.0-4.8) Monocytes # (Auto) 0.4 x10^3/uL (0.0-1.1) Eosinophils # (Auto) 0.1 x10^3/uL (0.0-0.7) Basophils # (Auto) 0.1 x10^3/uL (0.0-0.2) Sodium Level 134 mmol/L (136-145) Potassium Level 5.5 mmol/L (3.5-5.1) Chloride Level 95 mmol/L (98-107) Carbon Dioxide Level 27 mmol/L (21-32) Anion Gap 12 (6-14) Blood Urea Nitrogen 77 mg/dL (8-26) Creatinine 8.6 mg/dL (0.7-1.3) Estimated GFR (Cockcroft-Gault) 6.3 BUN/Creatinine Ratio 9 (6-20) Glucose Level 82 mg/dL (70-99) Calcium Level 8.7 mg/dL (8.5-10.1) Magnesium Level 3.3 mg/dL (1.8-2.4) Total Bilirubin 0.6 mg/dL (0.2-1.0) Aspartate Amino Transf (AST/SGOT) 19 U/L (15-37) Alanine Aminotransferase (ALT/SGPT) 22 U/L (16-63) Alkaline Phosphatase 152 U/L (46-116) Troponin I Quantitative < 0.017 ng/mL (0.000-0.055) XW-Ksu-N-Type Natriuretic Peptide 9462 pg/mL (0-124) Total Protein 6.9 g/dL (6.4-8.2) Albumin 3.5 g/dL (3.4-5.0) Albumin/Globulin Ratio 1.0 (1.0-1.7) Lipase 124 U/L (73-393) Assessment/Plan Assessment/Plan IMP DYSPNEA FLUID OVERLOAD DIASTOLIC CHF CHEST PAIN ESRD-MWF ANEMIA HYPERKALEMIA PLAN HD TODAY UF TO TW START ARANESP CARDIOLOGY EVAL AND TX WILL FOLLOW KELLY CALHOUN MD Mar 02, 2021 11:19
--- NOTE | 2021-03-02 11:56 | PDOC2 ---
CLAUDIO DAMON [employer] CH[employer] OPENER 03/02/21 1156: CARDIAC CONSULT DATE OF CONSULT Date of Consult DATE: 03/02/21 TIME: 11:49 REASON FOR CONSULT Reason for Consult: Chest pain REFERRING PHYSICIAN Referring Physician: Jonah Bryant SOURCE Source: Chart review, Patient HISTORY OF PRESENT ILLNESS HISTORY OF PRESENT ILLNESS This is a 66 yo male who presented secondary to chest pain and shortness of breath. Patient reports pain began this morning while watching television. Located in his left chest. Radiated to his left arm. Describes as aching/pressure. Seemed to radiate through to his back. Associated with mild lightheadedness and shortness of breath. No diaphoresis or nausea/vomiting. Pain worsened with deep breathing. Describes pain to be very sharp with deep breathing. Is ESRD on HD. Went to dialysis this morning and reported chest pain. Was referred to the ED for further evaluation and treatment. PAST MEDICAL HISTORY Past Medical History Cardiovascular: HTN, pulmonary HTN CENTRAL NERVOUS SYSTEM: Seizure, Other (spina bifida, arnold chiari) GI: GERD, gastroparesis Heme/Onc: Anemia NOS Psych: Other Musculoskeletal: Other (paraplegia; chronic pain sydrome) ENT: Other ([facility]) Renal/: Chronic renal failure (ESRD), Other (neurogenic bladder) Endocrine: Hypothyroidism PAST SURGICAL HISTORY Past Surgical History nephrectomy, urotersotomy,ileal conduit FAMILY HISTORY Family History noncontributory to CV SOCIAL HISTORY Social History Smoke: No ALCOHOL: none Drugs: None Lives: [facility] CURRENT MEDICATIONS CURRENT MEDICATIONS Current Medications Medications (Trade) Dose Ordered Sig/Pema Route PRN Reason Start Time Stop Time Status Last Admin Dose Admin Hydromorphone HCl (Dilaudid) 1 mg 1X ONCE IVP 03/02/21 10:00 03/02/21 10:01 DC 03/02/21 10:38 ALLERGIES ALLERGIES: Coded Allergies: Sulfa (Sulfonamide Antibiotics) (Verified Allergy, Intermediate, 08/29/19) amoxicillin (Verified Allergy, Intermediate, 08/29/19) gabapentin (Verified Allergy, Intermediate, 08/29/19) pregabalin (Verified Allergy, Intermediate, 08/29/19) I S O L A T I O N *CONTACT* (Verified Allergy, Unknown, 08/29/19) mrsa ROS Review of System 14 point ROS conducted with pertinent positives noted above in hPI PHYSICAL EXAM PHYSICAL EXAM General: Alert, Oriented X3, Cooperative, No acute distress HEENT: Atraumatic, Mucous membr. moist/pink Lungs: Clear to auscultation, Normal air movement. left chest slightly tender upon palpation Heart: Regular rate (SR), Other (2/6 diastolic murmur to apex) Abdomen: Soft, No tenderness Extremities: Other (1-2+ bilateral LE edema) Skin: No breakdown, No significant lesion Neuro: Normal speech, Sensation intact Psych/Mental Status: Mental status NL, Mood NL MUSCULOSKELETAL: Other (short LE; paraplegic) VITALS/I&O VITALS/I&O: Vital Signs Date Time Temp Pulse Resp B/P (MAP) Pulse Ox O2 Delivery O2 Flow Rate FiO2 03/02/21 10:38 22 96 Room Air 03/02/21 06:45 97.8 76 161/79 (93) 97.8 LABS Lab: Laboratory Tests Test 03/02/21 07:50 03/02/21 08:35 White Blood Count 6.3 x10^3/uL (4.0-11.0) Red Blood Count 2.90 x10^6/uL (4.30-5.70) L Hemoglobin 9.8 g/dL (13.0-17.5) L Hematocrit 28.6 % (39.0-53.0) L Mean Corpuscular Volume 99 fL (79-100) Mean Corpuscular Hemoglobin 34 pg (25-35) Mean Corpuscular Hemoglobin Concent 34 g/dL (31-37) Red Cell Distribution Width 13.8 % (11.5-14.5) Platelet Count 179 x10^3/uL (140-400) Neutrophils (%) (Auto) 78 % (31-73) H Lymphocytes (%) (Auto) 12 % (24-48) L Monocytes (%) (Auto) 7 % (0-9) Eosinophils (%) (Auto) 2 % (0-3) Basophils (%) (Auto) 1 % (0-3) Neutrophils # (Auto) 4.9 x10^3/uL (1.8-7.7) Lymphocytes # (Auto) 0.7 x10^3/uL (1.0-4.8) L Monocytes # (Auto) 0.4 x10^3/uL (0.0-1.1) Eosinophils # (Auto) 0.1 x10^3/uL (0.0-0.7) Basophils # (Auto) 0.1 x10^3/uL (0.0-0.2) Sodium Level 134 mmol/L (136-145) L Potassium Level 5.5 mmol/L (3.5-5.1) H Chloride Level 95 mmol/L (98-107) L Carbon Dioxide Level 27 mmol/L (21-32) Anion Gap 12 (6-14) Blood Urea Nitrogen 77 mg/dL (8-26) H Creatinine 8.6 mg/dL (0.7-1.3) H Estimated GFR (Cockcroft-Gault) 6.3 BUN/Creatinine Ratio 9 (6-20) Glucose Level 82 mg/dL (70-99) Calcium Level 8.7 mg/dL (8.5-10.1) Magnesium Level 3.3 mg/dL (1.8-2.4) H Total Bilirubin 0.6 mg/dL (0.2-1.0) Aspartate Amino Transferase (AST) 19 U/L (15-37) Alanine Aminotransferase (ALT) 22 U/L (16-63) Alkaline Phosphatase 152 U/L (46-116) H Troponin I Quantitative < 0.017 ng/mL (0.000-0.055) VC-Ozy-F-Type Natriuretic Peptide 9462 pg/mL (0-124) H Total Protein 6.9 g/dL (6.4-8.2) Albumin 3.5 g/dL (3.4-5.0) Albumin/Globulin Ratio 1.0 (1.0-1.7) Lipase 124 U/L (73-393) Laboratory Tests 03/02/21 07:50 Laboratory Tests 03/02/21 08:35 ECHOCARDIOGRAM ECHOCARDIOGRAM <Conclusion> Left ventricle systolic function is low normal. The Ejection Fraction is 50%. There is global hypokinesis of the left ventricle. RV Systolic function is mildly reduced. There is mild mitral valve stenosis with a maximum pressure gradient of 18 mmHg and mean pressure gradient of 4-7 mmHg. Doppler and Color Flow revealed mild tricuspid regurgitation. There is moderate pulmonary hypertension. The PA pressure was estimated at 58 mmHg. DATE: 11/14/18 1225 STRESS TEST STRESS TEST Conclusion 1. Regadenoson cardioisotope stress test did not show any evidence of ischemia or infarct. 2. Normal left ventricular systolic function with ejection fraction calculated at 53%. 3. Low risk for cardiac events. DATE: 12/27/18 1236 ASSESSMENT/PLAN ASSESSMENT/PLAN 1. Chest pain, mixed features; initial trop negative. EKG without significant acute changes as compared to 12/26/18 2. Accelerated hypertension 3. Acute on chronic diastolic CHF 4. ESRD, hyperkalemia 5. Hx of spina bifida/paraplegia/Arnold-Chiari syndrome/seizure 6. Obesity 7. Mild mitral stenosis Recommendations Trend troponin ASA therapy Echo to assess LV systolic function Resume home antiHTN therapy Monitor and titrate as warranted Hydralazine IV PRN Fluid off loading per HD Will need further ischemic evaluation, possibly on an outpatient basis Further pending above. Supportive care KELTON HURST MD 03/02/21 0073: CARDIAC CONSULT ASSESSMENT/PLAN ASSESSMENT/PLAN Patient seen and evaluated. I agree with our nurse practitioners assessment and plan. Chest pain, initial trop negative. EKG without significant acute changes, will continue medical treatment and rule out. Possible outpatient ischemia e valuation. Accelerated hypertension. Resume home medications and monitor. Acute on chronic diastolic CHF. Fluid management as per HD. ESRD, hyperkalemia. Hx of spina bifida/paraplegia/Arnold-Chiari syndrome/seizure Mild mitral stenosis CLAUDIO DAMON APRN Mar 02, 2021 11:56 KELTON HURST MD Mar 02, 2021 17:48
[2021-03-02 12:30] VITALS: BP 209/139
--- NOTE | 2021-03-02 12:35 | NUR ---
SPOKE TO MARCY AT [facility] AT [phone] TO ASK FOR MEDICATION LIST AND DNR PAPERWORK.
[2021-03-02] MEDS ORDERED: IV NORMAL SALINE 1000ML BAG 1,000 ML IV PRN ×2 (14:30)
[2021-03-02] MEDS ORDERED: DIALYSIS PATIENT. MC PRN ×2 (14:30)
--- NOTE | 2021-03-02 14:55 | EKG ---
[facility] [address] [place] [address] Test Date: 2021-03-02 Test Time: 07:20:40 Pat Name: EDWARD DOOLEY Department: Room: Gender: Public Safety Telecommunicator: : 1955 Requested By: SIXTO ESCOBAR Order Number: [id number] Reading MD: Measurements Intervals [place] Rate: 73 P: 42 DC: 176 QRS: 16 QRSD: 98 T: 35 QT: 418 QTc: 464 Interpretive Statements SINUS RHYTHM NORMAL ECG RI6.01 No previous ECG available for comparison
[2021-03-02] MEDS ORDERED: LOPERAMIDE 2 MG CAPSULE PO PRN (15:30)
[2021-03-02] MEDS ORDERED: NITROGLYCERIN SUBLINGUAL 0.4 MG BOTTLE OF 25. SL PRN (15:30)
[2021-03-02] MEDS ORDERED: MAGNESIUM CITRATE 296 ML SOLUTION. PO PRN (15:30)
[2021-03-02] MEDS ORDERED: MECLIZINE HCL 12.5 MG TABLET. PO PRN (15:30)
[2021-03-02] MEDS ORDERED: MIDODRINE 5 MG TABLET PO PRN (15:30)
[2021-03-02] MEDS ORDERED: ACETAMINOPHEN 325 MG TABLET. PO PRN (15:30)
[2021-03-02] MEDS ORDERED: DICLOFENAC SODIUM 1% TOPICAL GEL 100GM TUBE. TP PRN (15:30)
[2021-03-02] MEDS ORDERED: ONDANSETRON ODT 4 MG TAB.RAPDIS. PO PRN (15:30)
[2021-03-02] MEDS ORDERED: MIRT7.5T8 PO (15:44)
[2021-03-02] MEDS ORDERED: ARIP5TAB13 PO (15:44)
[2021-03-02] MEDS ORDERED: LOPE-101 PO (15:53)
[2021-03-02] MEDS ORDERED: MENT118G TP (15:53)
[2021-03-02] MEDS ORDERED: CINA30TA24 PO (15:53)
[2021-03-02] MEDS ORDERED: ISOS30TA68 PO (15:53)
[2021-03-02] MEDS ORDERED: METH150T PO (15:53)
[2021-03-02] MEDS ORDERED: FAMO40TA4 PO (15:53)
[2021-03-02] MEDS ORDERED: TEMA15CA6 PO (15:53)
[2021-03-02] MEDS ORDERED: guaiFENesin DM 200MG/20MG 10 ML SYRUP PO PRN (16:30)
--- NOTE | 2021-03-02 16:37 | NUR ---
RONNA FROM PHARMACY CALLED TO SAY PT WOULD NEED TO SUPPLY OWN RELISTOR AND MOVANTIK. I SPOKE TO MARCY AT [facility]. IF HIS FAMILY MEMBER COULD INTERNET APPLICATION DEVELOPER THE MEDICATION, THEY WOULD SUPPLY IT.
[2021-03-02] MEDS ORDERED: LABETALOL 20 MG/4 ML DISP.SYRIN. IVP PRN (16:45)
[2021-03-02] MEDS ORDERED: hydrALAZINE 20 MG/ML VIAL. IVP PRN (16:45)
[2021-03-02] MEDS ORDERED: POLYVINYL ALCOHOL 1.4% OPHTH SOLUTION 15ML BOTTLE. OU PRN (16:45)
[2021-03-02] MEDS ORDERED: NON FORMULARY ITEM (Albuterol Sulfate (Ventolin Hfa Inhaler) 2 PUFF) INH SCH (17:00)
[2021-03-02] MEDS: SEVELAMER CARBONATE 800 MG TABLET. PO SCH (17:00)
[2021-03-02] MEDS: oxyCODONE/APAP 5/325 1 TAB TABLET PO PRN (17:19)
[2021-03-02 20:08] VITALS: BP 120/70
[2021-03-02] MEDS: ALBUTEROL SULFATE 2.5 MG/3 ML NEBU. NEB SCH (20:43)
[2021-03-02] MEDS ORDERED: NON FORMULARY ITEM (Amino Acids/Protein Hydrolys (Pro-Stat Liquid) 30 ML) PO SCH (21:00)
[2021-03-02] MEDS ORDERED: DARBEPOETIN ALFA 60 MCG/0.3 ML DISP.SYRIN. SQ SCH (21:00)
[2021-03-02] MEDS: MIRTAZAPINE 7.5 MG TABLET. PO SCH (21:12)
[2021-03-02] MEDS: DULoxetine HCL 30 MG CAPSULE.DR PO SCH (21:13)
[2021-03-02] MEDS: clonazePAM 0.5 MG TABLET PO SCH (21:13)
[2021-03-02] MEDS: FAMOTIDINE 20 MG TABLET. PO SCH (21:17)
[2021-03-02] MEDS: CALCIUM CARBONATE 500 MG TABLET PO SCH (21:18)
[2021-03-02] MEDS: DOCUSATE SODIUM 100 MG CAPSULE. PO SCH (21:19)
[2021-03-02] MEDS: METHYL SALICYLATE/MENTHOL TOPICAL CREAM 57GM TUBE. TP SCH (21:19)
[2021-03-02] MEDS: PSYLLIUM HUSK (SUGAR FREE) 1 PKT PACKET PO SCH (21:19)
[2021-03-02 23:37] VITALS: BP 167/82
[2021-03-03] MEDS: LEVOTHYROXINE 75 MCG TABLET PO SCH (06:05)
[2021-03-03 07:00] VITALS: BP 141/67
[2021-03-03] MEDS: ALBUTEROL SULFATE 2.5 MG/3 ML NEBU. NEB SCH ×4 (07:53→20:50)
--- NOTE | 2021-03-03 08:02 | NUR ---
IP: Pt has a hx of + mrsa screen on 11/14/18. Pt to be in contact precautions until a nasal screen is done and Nozin/CHG protocol initiated.
[2021-03-03] MEDS: ISOSORBIDE MONONITRATE ER 30 MG TAB.ER.24H PO SCH (08:24)
[2021-03-03] MEDS: CALCIUM CARBONATE 500 MG TABLET PO SCH ×4 (08:24→20:33)
[2021-03-03] MEDS: DULoxetine HCL 30 MG CAPSULE.DR PO SCH ×2 (08:25→20:31)
[2021-03-03] MEDS: ASPIRIN CHEWABLE 81 MG TABLET. PO SCH (08:25)
[2021-03-03] MEDS: PANTOPRAZOLE 40 MG TABLET.DR. PO SCH (08:25)
[2021-03-03] MEDS: CINACALCET HCL 30 MG TABLET PO SCH (08:25)
[2021-03-03] MEDS: ARIPiprazole 5 MG TABLET PO SCH (08:25)
[2021-03-03] MEDS: clonazePAM 0.5 MG TABLET PO SCH ×2 (08:26→20:31)
[2021-03-03] MEDS: FOLIC/VIT B COMP W-C (RENAL) TABLET. PO SCH (08:26)
[2021-03-03] MEDS: CETIRIZINE HCL 10 MG TABLET. PO SCH (08:26)
[2021-03-03] MEDS: oxyCODONE/APAP 5/325 1 TAB TABLET PO PRN ×4 (08:27→22:02)
[2021-03-03] MEDS: FLUTICASONE 50MCG/NASAL SPRAY 16GM BOTTLE. NS SCH (08:27)
[2021-03-03] MEDS: DOCUSATE SODIUM 100 MG CAPSULE. PO SCH ×2 (08:32→20:33)
[2021-03-03] MEDS: METHYL SALICYLATE/MENTHOL TOPICAL CREAM 57GM TUBE. TP SCH ×2 (08:32→20:31)
[2021-03-03] MEDS: BISACODYL 5 MG TABLET.DR. PO SCH (08:33)
[2021-03-03] MEDS ORDERED: NON FORMULARY ITEM (Methylnaltrexone Bromide (Relistor) 150 MG) PO SCH (09:00)
[2021-03-03] MEDS ORDERED: NON FORMULARY ITEM (Naloxegol Oxalate (Movantik) 25 MG) PO SCH (09:00)
--- NOTE | 2021-03-03 09:12 | HP ---
ADMIT DATE: 03/02/2021 HISTORY OF PRESENT ILLNESS: The patient is a 66-year-old male patient, a resident at [facility] who apparently developed left-sided chest pain that is described as sharp, stabbing in nature, aggravated by taking a deep breath, associated with shortness of breath, but denied any nausea or vomiting. Denied any diaphoresis, taking a deep breath makes the pain worse. He apparently went to his scheduled dialysis. However, he continued to have chest pain and therefore, he was referred to the Emergency Department in [facility] for further evaluation where he was seen by the Emergency Room physician and has had lab work and EKG and was admitted for further evaluation and treatment. His EKG showed that he was in sinus rhythm with a heart rate of 70 beats per minute, no axis deviation. Corrected QT interval was 467, no ST segment elevation or depression. His chest x-ray showed enlarged cardiac silhouette with additional density projecting over the cardiac silhouette which could be from umbilical hernia. No definite new airspace consolidation, sclerotic foci bilaterally, proximal humerus partially seen, most prominently from bone island unless the patient has a known history of neoplasm. The patient was admitted to do two more sets of cardiac enzymes and we consulted the Cardiology team as well as the Nephrology as he has end-stage renal failure, on hemodialysis on Tuesday, Tuesday and Tuesday. PAST MEDICAL HISTORY: Significant for hypertension, end-stage renal disease, on hemodialysis Tuesday, Tuesday and Tuesday. He is known to have spina bifida cystica with paraplegia and Arnold-Chiari syndrome, seizure disorder, chronic pain syndrome, hyperlipidemia, hypothyroidism, iron deficiency anemia, anxiety and depression as well as opioid-induced constipation, visually impaired and has severe sensorineural deafness, has bilateral hearing aids. PAST SURGICAL HISTORY: Significant for appendectomy, cholecystectomy, suprapubic catheter placement, nephrectomy, urethrostomy and ileal conduit and incisional hernia repair. ALLERGIES: HE IS ALLERGIC TO AMOXICILLIN, GABAPENTIN, LYRICA, AND SULFA DRUGS. FAMILY HISTORY: Positive for CVA in his mother. SOCIAL HISTORY: He is single, never , has no children. He is an ex-smoker, does not smoke anymore. He does not drink alcohol or recreational drugs. He has been a resident at [facility] for at least 3-4 years now. REVIEW OF SYSTEMS: As per history of present illness. MEDICATIONS: He is currently on the following medications: He is on cetirizine 10 mg once a day, midodrine 5 mg 3 times a day, albuterol sulfate 2 puffs 4 times a day, isosorbide mononitrate 30 mg daily, nitroglycerin 0.4 mg sublingually every 5 minutes as needed, nifedipine 60 mg twice a day, aspirin 81 mg once a day, diclofenac sodium 1 gram topically 4 times a day. He is on oxycodone/CPAP 5/325 one tablet every 4 hours, acetaminophen 650 mg every 6 hours, clonazepam 0.5 mg twice a day, duloxetine 60 mg twice a day, mirtazapine 15 mg at bedtime, aripiprazole 5 mg daily. He is on temazepam 50 mg at bedtime, calcium carbonate 1000 mg 3 times a day, sevelamer, Renvela 800 mg 3 times a day with meals and guaifenesin, dextromethorphan, he takes 20 mL every 8 hours, Flonase 2 sprays to each nostril once a day and propylene glycol, Systane one drop to both eyes 4 times a day, loperamide 2 mg every 4 hours as needed, bisacodyl 10 mg tablets p.o. daily. He is on docusate sodium 100 mg twice a day, Metamucil 1 packet at bedtime. He is on meclizine 12.5 mg every 8 hours, ondansetron 4 mg tablets every 6 hours, famotidine 40 mg at bedtime, Protonix 20 mg once a day. He is on Relistor 150 mg daily, Movantik 25 mg daily, cinacalcet, Sensipar 30 mg daily and levothyroxine sodium 75 mcg once a day. He is on menthol, Biofreeze apply topically 4 times a day, folic acid and vitamin B6 group one tablet once a day, amino acid, protein hydrolysis, Pro-Sate liquid 30 mL twice a day. PHYSICAL EXAMINATION: GENERAL: On arrival to the Emergency Room, he looked well and was clearly in no apparent respiratory distress. He was pale, but no jaundice, cyanosis, no lymphadenopathy, no thyromegaly, no jugular venous distention. Mild bilateral lower limb edema. VITAL SIGNS: His heart rate was 85, blood pressure is 167/82, temperature was 98.1, respiratory rate was 16 and oxygen saturation was 96%. HEAD, EYES, EARS, NOSE, AND THROAT: Normocephalic, atraumatic. NECK: Supple. HEART: Showed normal first and second heart sounds, no gallop, rub or murmur. CHEST: Clear to auscultation, no crepitation or rhonchi. ABDOMEN: Distended, soft, nontender. NEUROLOGIC: He is very hard of hearing, but otherwise all his cranial nerves are intact. He moves upper extremities without difficulty. 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 He is mostly wheelchair bound. LABORATORY DATA: His lab work on admission showed a white cell count of 6300, hemoglobin 10, hematocrit 30, MCV 99 and platelet count of 179,000. His chemistry showed a serum sodium 134, potassium 5.5, chloride 95, bicarbonate 27, anion gap of 12, BUN 77, creatinine was 8.6, estimated GFR was 60 mL per minute. His glucose was 82, calcium was 8.7, magnesium 3.3. Total bilirubin, AST, ALT were normal. Alkaline phosphatase slightly elevated. Serum total protein was 6.9, albumin was 3.5; however, his serum lipase is only 124. His first set of cardiac enzyme was less than 0.017. ASSESSMENT AND PLAN: The patient was admitted to do two more sets of cardiac enzyme. I have consulted the protection chief industrial plant as well as the fish egg packer. Meanwhile, we will continue with all his home medication. In summary, this is a 66-year-old male patient who was admitted with left-sided chest pain that is sharp, stabbing, aggravated by taking a deep breath, is not associated with any nausea, vomiting or diaphoresis, but did complain of shortness of breath, has multiple medical problems including hypertension, hyperlipidemia, hypothyroidism, end-stage renal disease, on hemodialysis. Plan is to consult the protection chief industrial plant to continue with hemodialysis, fish egg packer to investigate his chest pain further. KHRIS DR: Toribio TID: [id number]
--- NOTE | 2021-03-03 09:26 | PDOC ---
CARDIO Progress Notes Date and Time Date of Service 03/03/21 Time of Evaluation 1345 Subjective Subjective: No Chest Pain, No shortness of breath, No Palpitations Vitals Vitals Vital Signs Date Time Temp Pulse Resp B/P (MAP) Pulse Ox O2 Delivery O2 Flow Rate FiO2 03/03/21 08:27 Room Air 03/03/21 08:26 83 141/67 03/03/21 07:55 99 03/03/21 07:00 99.1 18 99.1 Weight Weight [ ] Input and Output Intake and Output Intake and Output 03/03/21 07:00 Intake Total 500 ml Balance 500 ml Intake Oral 500 ml # Bowel Movements 1 Laboratory Labs Laboratory Tests Test 03/02/21 12:45 03/02/21 22:55 Troponin I Quantitative < 0.017 ng/mL (0.000-0.055) < 0.017 ng/mL (0.000-0.055) Physical Exam HEENT: Neck Supple W Full Motion Chest: Symmetric LUNGS: Clear to Auscultation Heart: RRR Abdomen: Soft N/T, Other (obese) Extremities: Other (chronic venous stasis changes to bilateral LE) Neurology: alert, oriented, follow commands Assessment Assessment 1. Chest pain, mixed features; trop series negative, AMI ruled out. EKG without significant acute changes as compared to 12/26/18. Recent stress test without significant ischemia as noted below 2. Accelerated hypertension; now controlled 3. Acute on chronic diastolic CHF; recent echo with preserved LV systolic fu nction as noted below 4. ESRD, hyperkalemia 5. Hx of spina bifida/paraplegia/Arnold-Chiari syndrome/seizure 6. Obesity 7. Mild mitral stenosis Recommendations ASA therapy Secondary prevention Fluid off loading per HD Supportive care If pain recurrent, consider further ischemic evaluation on an outpatient basis Records obtained from : 12/30/20 - 2D + DOPPLER ECHO Interpretation Summary The left ventricular size is normal. The left ventricular wall thickness is normal. Normal geometry. The left ventricular systolic function is normal. The visually estimated ejection fraction is 55%. There are no segmental wall motion abnormalities. The right ventricular size is normal. The right ventricular systolic function is normal. Normal biatrial size. No significant valve disease. Estimated Peak Systolic PA Pressure 47 mmHg No pericardial effusion. Compared with study dated 05/02/19, no significant change is noted. 12/30/20 - Procedure: D-SPECT MULTI GATED THALLIUM REGADENOSON MPI STRESS TEST SUMMARY/OPINION: This study is probably normal. There is a small area of mild intensity mostly fixed slightly reversible apical and apical lateral perfusion abnormality. This is likely suggestive of attenuation artifact considering normal wall motion and thickening. All myocardial segments appear viable. Left ventricular systolic function is normal. There are no high risk prognostic indicators present. The pharmacologic ECG portion of the study is negative for ischemia. There are no prior studies available for comparison. Justicifation of Admission Dx: Justifications for Admission: Justification of Admission Dx: N/A CLAUDIO DAMON APRN Mar 03, 2021 09:26
[2021-03-03] MEDS: SEVELAMER CARBONATE 800 MG TABLET. PO SCH ×3 (09:50→17:50)
--- NOTE | 2021-03-03 10:48 | PDOC ---
Renal-Progress Notes Subjective Notes Notes FEELING MUCH BETTER History of Present Illness Hx of present illness STABLE Vitals Vitals Vital Signs Date Time Temp Pulse Resp B/P (MAP) Pulse Ox O2 Delivery O2 Flow Rate FiO2 03/03/21 08:27 Room Air 03/03/21 08:26 83 141/67 03/03/21 07:55 99 03/03/21 07:00 99.1 18 99.1 Weight Weight [ ] I.O. Intake and Output Intake and Output 03/03/21 07:00 Intake Total 500 ml Balance 500 ml Intake Oral 500 ml # Bowel Movements 1 Labs Labs Laboratory Tests Test 03/02/21 12:45 03/02/21 22:55 Troponin I Quantitative < 0.017 ng/mL (0.000-0.055) < 0.017 ng/mL (0.000-0.055) Review of Systems Constitutional: yes: alert, oriented Ears/Nose/Throat: Yes: no symptom reported Eyes: Yes: no symptom reported Pulmonary: Yes dyspnea Cardiovascular: Yes no symptom reported Gastrointestional: Yes: no symptom reported Genitourinary: Yes: no symptom reported Musculoskeletal: Yes: no symptom reported Skin: Yes no symptom reported Psychiatric/Neurological: Yes: no symptom reported Endocrine: Yes: no symptom reported Physical Exam General Appearance: no apparent distress, febrile Respiratory: decreased breath sounds Heart: S1S2 Abdomen: soft, bowel sounds present Genitourinary: bladder flat Extremities: pulses present, edema Neurology: alert, oriented Musculoskeletal: Other Assessment Assessment IMP DYSPNEA FLUID OVERLOAD DIASTOLIC CHF CHEST PAIN ESRD-MWF ANEMIA HYPERKALEMIA PLAN HD AGAIN TODAY SINCE HE IS STILL WELL ABOVE HIS TW UF TO TW ABOUT 3.0-4.0 LITERS CONT ARANESP CARDIOLOGY EVAL AND TX WILL FOLLOW KELLY CALHOUN MD Mar 03, 2021 10:48
[2021-03-03 10:51] VITALS: BP 135/81
[2021-03-03 12:00] LABS: CALCIUM 8.6 mg/dL (8.5-10.1); CREATININE 6.4 mg/dL (0.7-1.3); GFR 8.8; POTASSIUM 4.9 mmol/L (3.5-5.1)
[2021-03-03 12:06] LABS: ALBUMIN 3.3 g/dL (3.4-5.0); ALBUMIN/GLOBULIN RATIO 1.1 (1.0-1.7); TOTAL BILIRUBIN 0.6 mg/dL (0.2-1.0); TOTAL PROTEIN 6.3 g/dL (6.4-8.2)
--- NOTE | 2021-03-03 14:07 | NUR ---
SS following for discharge planning. SS reviewed pt chart and discussed with pt RN. Pt is LTC resident from [facility], ; fax [phone]. Pt is currently on room air. Pt has outpatient hemodialysis at [facility], ; fax [phone], Tuesday, Tuesday, and Tuesday. Cardiology and Nephrology following. SS will continue to follow for discharge planning.
[2021-03-03] MEDS ORDERED: IV NORMAL SALINE 1000ML BAG 1,000 ML IV PRN ×2 (14:30)
[2021-03-03] MEDS ORDERED: DIALYSIS PATIENT. MC PRN ×2 (14:30)
--- NOTE | 2021-03-03 16:32 | NUR ---
PT OFF UNIT. PAIN ASSESSMENT DEFERRED.
[2021-03-03 19:21] VITALS: BP 102/67
[2021-03-03] MEDS: TEMAZEPAM 15 MG CAPSULE PO PRN ×2 (20:30→21:41)
[2021-03-03] MEDS: MIRTAZAPINE 7.5 MG TABLET. PO SCH (20:30)
[2021-03-03] MEDS: FAMOTIDINE 20 MG TABLET. PO SCH (20:31)
[2021-03-03] MEDS: PSYLLIUM HUSK (SUGAR FREE) 1 PKT PACKET PO SCH (20:33)
[2021-03-03 22:23] LABS: HEP B SURFACE AG Confirm. indicated (Negative)
[2021-03-03 23:56] VITALS: BP 132/80
[2021-03-04] MEDS: oxyCODONE/APAP 5/325 1 TAB TABLET PO PRN ×4 (02:19→13:54)
[2021-03-04 03:01] VITALS: BP 121/62
[2021-03-04] MEDS: PANTOPRAZOLE 40 MG TABLET.DR. PO SCH (05:57)
[2021-03-04] MEDS: LEVOTHYROXINE 75 MCG TABLET PO SCH (05:57)
[2021-03-04] MEDS: CALCIUM CARBONATE 500 MG TABLET PO SCH ×3 (05:57→16:30)
[2021-03-04 07:15] VITALS: BP 134/78
[2021-03-04] MEDS: ALBUTEROL SULFATE 2.5 MG/3 ML NEBU. NEB SCH ×3 (07:19→15:39)
--- NOTE | 2021-03-04 07:52 | SNU/HH DC ---
DISCHARGE ORDERS DISCHARGE INFORMATION: DISCHARGE DATE: Mar 04, 2021 FINAL DIAGNOSIS Problems Medical Problems: (1) Chest pain Status: Acute CONDITION ON DISCHARGE: Stable CODE STATUS: Code Status: DNR/DNI FCI: SNF STAY <30 DAYS: No POST DISCHARGE ORDERS: ACTIVITY ORDERS: Activity as tolerated WEIGHT BEARING STATUS: Non weight bearing DIET AFTER DISCHARGE: Renal CHECKS AFTER DISCHARGE: CHECKS AFTER DISCHARGE: Check blood press - daily, Check blood sugar, ac/hs, Weigh Yourself Daily TREATMENT/EQUIPMENT ORDERS: ADAPTIVE EQUIPMENT NEEDED: Wheelchair DISCHARGE MEDICATIONS: Home Meds Active Scripts Lanolin Alcohol/Mo/W.pet/[place] (Hydrocerin Cream) 454 Gm Cream..g., 1 OZZIE TP PRN Q1HR PRN for DRY SKIN / SCALING for 30 Days, #30 EACH Prov:HALEY ISSA MD 01/17/20 Psyllium Husk/Aspartame (METAMUCIL FIBER SINGLES PACKET) 3.4 Gm Powd.pack, 1 PKT PO QHS for Constipation for 30 Days, #30 PKT Prov:HALEY ISSA MD 01/17/20 Midodrine Hcl (MIDODRINE HCL) 5 Mg Tablet, 5 MG PO PRN TID PRN for Hypotension prior to dialysis for 30 Days, #90 TAB Prov:HALEY ISSA MD 01/17/20 Albuterol Sulfate (VENTOLIN HFA INHALER) 18 Gm Hfa.aer.ad, 2 PUFF INH QID for FOR ASTHMA, #1 INHALER 0 Refills Prov:KRISTIE LEAHY MD 09/10/19 Docusate Sodium (COLACE) 100 Mg Capsule, 1 CAP PO BID, #30 CAP Prov:WAYLON CONCEPCION MD 11/05/16 Reported Medications Cinacalcet Hcl (SENSIPAR) 30 Mg Tablet, 30 MG PO DAILY for CKD, TAB 03/02/21 Temazepam (RESTORIL) 15 Mg Capsule, 15 MG PO HS PRN for INSOMNIA, CAP 03/02/21 Methylnaltrexone [place] (Relistor) 150 Mg Tablet, 150 MG PO DAILY for CONSTIPATION, TAB 03/02/21 Loperamide HCl (Imodium A-D) 2 Mg Capsule, 2 MG PO PRN Q1HR for DIARRHEA, CAP 03/02/21 Isosorbide Mononitrate (ISOSORBIDE MONONITRATE ER) 30 Mg Tab.er.24h, 30 MG PO DAILY for ANGINA, TAB.SR 03/02/21 Famotidine (FAMOTIDINE) 40 Mg Tablet, 40 MG PO HS for GERD, TAB 03/02/21 Menthol (BIOFREEZE) 118 Ml Gel..ml., 118 ML TP Q12HR for PAIN, EACH 03/02/21 Aripiprazole (ABILIFY) 5 Mg Tablet, 5 MG PO DAILY for PSYCHOSIS, TAB 03/02/21 Mirtazapine (MIRTAZAPINE) 7.5 Mg Tablet, 15 MG PO HS for DEPRESSION, TAB 03/02/21 Diclofenac Sodium (VOLTAREN) 100 Gm Gel..gram., 1 GM TP PRN Q6HRS PRN for PAIN for 30 Days, #1 EACH 0 Refills apply to affected area(s) 01/06/20 Guaifenesin/Dextromethorphan (Robitussin Cough-Chest Dm Liq) 237 Ml Liquid, 20 ML PO PRN Q8HRS PRN for COUGH, LIQUID 01/06/20 Sevelamer Carbonate (RENVELA) 800 Mg Tablet, 1 TAB PO TID for ESRD for 30 Days, #90 TAB 0 Refills 01/06/20 Amino Acids/Protein Hydrolys (PRO-STAT LIQUID) 30 Ml Liquid.pkt, 30 ML PO BID for ESRD, PKT 01/06/20 Oxycodone HCl/Acetaminophen (Percocet 5-325 mg Tablet) 1 Each Tablet, 1 TAB PO PRN Q4HRS PRN for PAIN MDD 2 Tablet(s) for 5 Days, #10 TAB 0 Refills 01/06/20 Naloxegol Oxalate (Movantik) 25 Mg Tablet, 25 MG PO DAILY for GI, TAB 01/06/20 Aspirin (Children's Aspirin) 81 Mg Tab.chew, 1 TAB PO DAILY for heart health for 30 Days, #30 TAB 0 Refills 01/06/20 Ondansetron (ONDANSETRON ODT) 4 Mg Tab.rapdis, 1 TAB PO PRN Q6HRS PRN for NAUSEA, #16 TAB 12/26/18 Nifedipine (PROCARDIA XL) 60 Mg Tab.er.24, 1 TAB PO BID for HTN, #90 TAB 1 Refill 12/26/18 Magnesium Citrate (MAGNESIUM CITRATE) 296 Ml Solution, 296 ML PO PRN DAILY PRN for CONSTIPATION, #296 ML 12/26/18 Fluticasone Propionate (Flonase Allergy Relief) 9.9 Ml [place].susp, 2 SPRAYS NS DAILY for nasal congestions, BOTTLE 12/26/18 Calcium Carbonate (CALCIUM CARBONATE) 500 Mg Tablet, 1000 MG PO TIDACHC for heartburn, TAB 12/26/18 Bisacodyl (DULCOLAX) 5 Mg Tablet.dr, 10 MG PO DAILY for constipation, TAB 0 Refills 12/26/18 Meclizine Hcl (MECLIZINE HCL) 12.5 Mg Tablet, 12.5 MG PO Q8HRS PRN for NAUSEA/VOMITING, TAB 11/14/18 Cetirizine Hcl (ZYRTEC) 10 Mg Tablet, 1 TAB PO DAILY for Itching, #30 TAB 2 Refills 11/14/18 Pantoprazole Sodium (PROTONIX) 20 Mg Tablet.dr, 40 MG PO DAILY for GERD, TAB 11/14/18 Duloxetine Hcl (CYMBALTA) 60 Mg Capsule.dr, 60 MG PO BID for antidepressant, CAP 07/25/18 Propylene Glycol/Peg 400 (SYSTANE 0.3-0.4% EYE DROPS) 15 Ml Drops, 1 DROP EACHEYE QID for dryness, #30 ML 5 Refills 07/25/18 Clonazepam (CLONAZEPAM ) 0.5 Mg Tablet, 1 TAB PO BID for anxiety, #60 TAB 1 Refill 07/25/18 Acetaminophen (TYLENOL) 325 Mg Tablet, 650 MG PO PRN Q6HRS PRN for MILD PAIN / TEMP 10/29/16 Nitroglycerin (NITROSTAT) 0.4 Mg Tab.subl, 0.4 MG SL PRN Q10MIN PRN for CHEST PAIN, BOTTLE 10/29/16 Folic Acid/Vitamin B Comp W-C (NEPHRO-FRANCISCO TABLET) 0.8 Mg Tablet, 1 TAB PO DAILY, #30 TAB 5 Refills 10/29/16 Levothyroxine Sodium (LEVOTHYROXINE SODIUM) 75 Mcg Tablet, 1 TAB PO DAILY for hypothyroid, #30 TAB 5 Refills 10/29/16 WAYLON CONCEPCION MD Mar 04, 2021 07:51
[2021-03-04] MEDS: BISACODYL 5 MG TABLET.DR. PO SCH (09:00)
[2021-03-04] MEDS: ISOSORBIDE MONONITRATE ER 30 MG TAB.ER.24H PO SCH (09:00)
[2021-03-04] MEDS: DOCUSATE SODIUM 100 MG CAPSULE. PO SCH (09:00)
--- NOTE | 2021-03-04 09:00 | NUR ---
Sari held due dialysis today.
[2021-03-04] MEDS: FOLIC/VIT B COMP W-C (RENAL) TABLET. PO SCH (09:35)
[2021-03-04] MEDS: CETIRIZINE HCL 10 MG TABLET. PO SCH (09:35)
[2021-03-04] MEDS: SEVELAMER CARBONATE 800 MG TABLET. PO SCH ×3 (09:35→17:00)
[2021-03-04] MEDS: clonazePAM 0.5 MG TABLET PO SCH (09:36)
[2021-03-04] MEDS: ARIPiprazole 5 MG TABLET PO SCH (09:36)
[2021-03-04] MEDS: DULoxetine HCL 30 MG CAPSULE.DR PO SCH (09:37)
[2021-03-04] MEDS: CINACALCET HCL 30 MG TABLET PO SCH (09:39)
[2021-03-04] MEDS: FLUTICASONE 50MCG/NASAL SPRAY 16GM BOTTLE. NS SCH (09:40)
[2021-03-04] MEDS: METHYL SALICYLATE/MENTHOL TOPICAL CREAM 57GM TUBE. TP SCH (09:42)
[2021-03-04] MEDS: ASPIRIN CHEWABLE 81 MG TABLET. PO SCH (09:49)
[2021-03-04 11:23] VITALS: BP 146/64
--- NOTE | 2021-03-04 11:29 | NUR ---
SS following up with discharge planning. SS reviewed pt chart and discussed with pt RN. Pt is currently on room air. Pt is LTC resident from [facility], ; fax [phone]. Discharge orders received for return to [facility]. Discharge orders and clinical phoned and faxed to [facility] and [facility], ; fax [phone]. Pt needing dialysis prior to discharge and will go this afternoon. Pt will discharge today and return to [facility] at 1800 via wheelchair. Pt and pt's RN notified.
--- NOTE | 2021-03-04 13:25 | PDOC ---
Renal-Progress Notes Subjective Notes Notes NO SOB History of Present Illness Hx of present illness STABLE AND IMPROVED Vitals Vitals Vital Signs Date Time Temp Pulse Resp B/P (MAP) Pulse Ox O2 Delivery O2 Flow Rate FiO2 03/04/21 11:34 Room Air 03/04/21 11:23 97.6 80 18 146/64 (91) 100 97.6 Weight Weight [ ] I.O. Intake and Output Intake and Output 03/04/21 07:00 Intake Total 1810 ml Balance 1810 ml Intake Oral 1810 ml # Bowel Movements 5 Labs Labs Laboratory Tests Test 03/03/21 14:05 Hepatitis A IgM Antibody Nonreactive (Nonreactive) Hepatitis B Surface Antigen Nonreactive (Nonreactive) Hepatitis B Surface Antibody Reactive Hepatitis B Surface Antibody, Quant 19.0 mIU/mL (Immunity>9.9) Hepatitis B Core Total Antibody Nonreactive (Nonreactive) Hepatitis B Core IgM Antibody Nonreactive (Nonreactive) Hepatitis C IgG Antibody Nonreactive (Nonreactive) Review of Systems Constitutional: yes: alert, oriented Ears/Nose/Throat: Yes: no symptom reported Eyes: Yes: no symptom reported Pulmonary: Yes dyspnea Cardiovascular: Yes no symptom reported Gastrointestional: Yes: no symptom reported Genitourinary: Yes: no symptom reported Musculoskeletal: Yes: no symptom reported Skin: Yes no symptom reported Psychiatric/Neurological: Yes: no symptom reported Endocrine: Yes: no symptom reported Physical Exam General Appearance: no apparent distress, febrile Respiratory: decreased breath sounds Heart: S1S2 Abdomen: soft, bowel sounds present Genitourinary: bladder flat Extremities: pulses present, edema Neurology: alert, oriented, follow commands Musculoskeletal: Other Assessment Assessment IMP DYSPNEA FLUID OVERLOAD DIASTOLIC CHF CHEST PAIN ESRD-MWF ANEMIA HYPERKALEMIA PLAN HD TODAY UF TO TW ABOUT 3.0-4.0 LITERS CONT ARANESP CARDIOLOGY EVAL AND TX REPEAT HEP B AG NEG WITH AB TITER OF 19 D/C SOON WILL FOLLOW KELLY CALHOUN MD Mar 04, 2021 13:25
[2021-03-04] MEDS ORDERED: DIALYSIS PATIENT. MC PRN (14:00)
[2021-03-04] MEDS ORDERED: IV NORMAL SALINE 1000ML BAG 1,000 ML IV PRN ×2 (14:00)
--- NOTE | 2021-03-04 14:00 | NUR ---
Pt transferred to dialysis by bed. Pain pill given prior to transfer.
--- NOTE | 2021-03-04 18:15 | NUR ---
1800 Returned from dialysis. IV dc'd. Pt dressed and belongings given. Discharged by w/c transportation to [facility].
--- NOTE | 2021-03-04 19:03 | NUR ---
Report called to [facility] and spoke with Alessandra MONTOYA.
== END 2021-03-04 18:15 | DRG 291 ==
LOC: ER 06:45 → ED HOLD 07:37 → 2 SOUTH 11:44
PROVIDERS: ADMIT Internal Medicine; ATTEND Internal Medicine
PROC: 5A1D70Z Performance of Urinary Filtration, Intermittent, Less than 6 Hours Per Day (ICD-10-PCS; principal; 2021-03-02)
PROC: 5A1D70Z Performance of Urinary Filtration, Intermittent, Less than 6 Hours Per Day (ICD-10-PCS; 2021-03-02)
DX: I13.2 Hypertensive heart and chronic kidney disease with heart failure and with stage 5 chronic kidney disease, or end stage renal disease (principal); I50.33 Acute on chronic diastolic (congestive) heart failure; N18.6 End stage renal disease; Z68.41 Body mass index [BMI] 40.0-44.9, adult; D64.9 Anemia, unspecified; E03.9 Hypothyroidism, unspecified; E66.9 Obesity, unspecified; E78.00 Pure hypercholesterolemia, unspecified; E78.5 Hyperlipidemia, unspecified; E87.5 Hyperkalemia; G40.909 Epilepsy, unspecified, not intractable, without status epilepticus; G89.4 Chronic pain syndrome; I27.20 Pulmonary hypertension, unspecified; K31.84 Gastroparesis; E21.3 Hyperparathyroidism, unspecified; F32.9 Major depressive disorder, single episode, unspecified; F41.9 Anxiety disorder, unspecified; G47.00 Insomnia, unspecified; K21.9 Gastro-esophageal reflux disease without esophagitis; I05.0 Rheumatic mitral stenosis; Z82.3 Family history of stroke; Z82.49 Family history of ischemic heart disease and other diseases of the circulatory system; Z87.891 Personal history of nicotine dependence; Z90.49 Acquired absence of other specified parts of digestive tract; Z90.5 Acquired absence of kidney; Z97.4 Presence of external hearing-aid; Z99.2 Dependence on renal dialysis; Z88.2 Allergy status to sulfonamides; Z88.8 Allergy status to other drugs, medicaments and biological substances; Z91.041 Radiographic dye allergy status
CPT/HCPCS: 36415; 71045; 80053; 83690; 83735; 83880; 84484; 85025; 86317; 86704; 86705; 86706; 86709; 86803; 87340; 93005; 94640; 94760; J0882; J1170; 99285-25; G0378; J7613

== ENCOUNTER → 2021-03-31 | Outpatient (CLI) | payer MEDICARE, MEDICAID ==
[2021-03-04 11:23] VITALS: BP 146/64
[~2021-03-31] MED LIST changes: +ATOR10TA PO; +CINA30TA24 PO; -DOXY100C2 PO; +DOXY100C3 PO; +FAMO40TA4 PO; +MENT118G TP; +TEMA15CA6 PO
[2021-03-31 15:03] LABS: BASO # 0.1 x10^3/uL (0.0-0.2); BASO % 1 % (0-3); EOS # 0.2 x10^3/uL (0.0-0.7); EOS % 2 % (0-3); HEMATOCRIT 27.8 % (39.0-53.0); HEMOGLOBIN 9.3 g/dL (13.0-17.5); LYMPH # 0.6 x10^3/uL (1.0-4.8); LYMPH % 8 % (24-48); MEAN CORPUSCULAR HEMOGLOBIN 34 pg (25-35); MEAN CORPUSCULAR HGB CONC 34 g/dL (31-37); MEAN CORPUSCULAR VOLUME 100 fL (79-100); MONO # 0.5 x10^3/uL (0.0-1.1); MONO % 7 % (0-9); NEUT # 6.5 x10^3/uL (1.8-7.7); NEUT % 82 % (31-73); PLATELET COUNT 187 x10^3/uL (140-400); RED BLOOD COUNT 2.78 x10^6/uL (4.30-5.70); RED CELL DISTRIBUTION WIDTH 14.4 % (11.5-14.5); WHITE BLOOD COUNT 7.9 x10^3/uL (4.0-11.0)
--- NOTE | 2021-03-31 15:04 | EKG ---
[facility] [address] [place] [address] Test Date: 2021-03-31 Test Time: 15:00:26 Pat Name: EDWARD DOOLEY Department: Room: Gender: M District Engineer: POLO : 1955 Requested By: DALIA CYR Order Number: [id number] Reading MD: Jarvis Nixon MD Measurements Intervals [place] Rate: 80 P: 29 CA: 176 QRS: 30 QRSD: 90 T: 38 QT: 396 QTc: 460 Interpretive Statements SINUS RHYTHM Electronically Signed On 04-02-2021 18:54:20 CDT by Jarvis Nixon MD
[2021-03-31 15:10] LABS: CALCIUM 8.7 mg/dL (8.5-10.1); CREATININE 6.6 mg/dL (0.7-1.3); GFR 8.5; POTASSIUM 5.7 mmol/L (3.5-5.1)
== END ==
LOC: SURGPAT 13:21
PROVIDERS: ATTEND Orthopaedic Surgery
DX: Z01.818 Encounter for other preprocedural examination (principal); M12.88 Other specific arthropathies, not elsewhere classified, other specified site
CPT/HCPCS: 36415; 80048; 82040; 82306; 85025; 85610; 85651; 85730; 87641; 93005